=== PATIENT | female | born 1995 | race Caucasian/White ===

== ENCOUNTER 2018-02-04 18:48 | Emergency (ER) | payer OTHER, SELFPAY ==
[2018-02-04] MEDS ORDERED: TETANUS & DIPHTHERIA TOX,ADULT 0.5 ML VIAL ONE (19:29)
--- NOTE | 2018-02-04 19:54 | EDPHYS ---
Physician Documentation [facility] Name: Cassidy France Age: 22 yrs Sex: Female : 1995 Arrival Date: 02/04/2018 Time: 18:51 Bed 27 Private MD: ED Physician Clay Alva HPI: 02/04 19:35 This 22 yrs old Female presents to ER via EMS with complaints of pain. jr8 19:35 The patient or guardian complains of pain. left shoulder. Context: The problem was jr8 sustained at a gym. Onset: The symptoms/episode began/occurred acutely, yesterday. Modifying factors: the symptoms are alleviated by nothing. The symptoms are aggravated by movement. Associated signs and symptoms: The patient has no apparent associated signs or symptoms. Severity of symptoms: At their worst the symptoms were mild, in the emergency department the symptoms are unchanged. The patient has not experienced similar symptoms in the past. The patient has not recently seen a physician. Patient stated that he had been doing rehab on right shoulder. Was lifting weights and felt pain in left shoulder. Stated that later that night felt a popping noise. Since then has been hurting . Historical: - Allergies: 19:08 Tylenol; kr2 - Home Meds: 19:08 None [Active]; kr2 - PMHx: 19:08 Kidney stones; kidney swelling; kidney infections; kr2 - PSHx: 19:08 renal stents; D \T\ C; kr2 - Immunization history:: Adult Immunizations unknown. - Social history:: Smoking status: Patient uses tobacco products, smokes two packs cigarettes per day. ROS: 19:35 Eyes: Negative for injury, pain, redness, and discharge, ENT: Negative for injury, jr8 pain, and discharge, Neck: Negative for injury, pain, and swelling, Cardiovascular: Negative for chest pain, palpitations, and edema, Respiratory: Negative for shortness of breath, cough, wheezing, and pleuritic chest pain, Abdomen/GI: Negative for abdominal pain, nausea, vomiting, diarrhea, and constipation, Back: Negative for injury and pain, Skin: Negative for injury, rash, and discoloration, Neuro: Negative for headache, weakness, numbness, tingling, and seizure. 19:35 MS/extremity: Positive for pain, tenderness, of the left shoulder. Exam: 19:35 Cardiovascular: Regular rate and rhythm with a normal S1 and S2. No gallops, murmurs, jr8 or rubs. Normal PMI, no JVD. No pulse deficits. Respiratory: Lungs have equal breath sounds bilaterally, clear to auscultation and percussion. No rales, rhonchi or wheezes noted. No increased work of breathing, no retractions or nasal flaring. Abdomen/GI: Soft, non-tender, with normal bowel sounds. No distension or tympany. No guarding or rebound. No evidence of tenderness throughout. Back: No spinal tenderness. No costovertebral tenderness. Full range of motion. Skin: Warm, dry with normal turgor. Normal color with no rashes, no lesions, and no evidence of cellulitis. Neuro: Awake and alert, GCS 15, oriented to person, place, time, and situation. Cranial nerves II-XII grossly intact. Motor strength 5/5 in all extremities. Sensory grossly intact. Cerebellar exam normal. Normal gait. 19:35 Musculoskeletal/extremity: Extremities: grossly normal except: noted in the left shoulder: pain, tenderness, ROM: intact in all extremities, Circulation is intact in all extremities. Sensation intact. Vital Signs: 19:05 BP 117 / 95; Pulse 82; Resp 15; Temp 98.9(O); Pulse Ox 100% on R/A; Weight 58.97 kg; kr2 Height 5 ft. 2 in. (157.48 cm); Pain 6/10; 19:05 Body Mass Index 23.78 (58.97 kg, 157.48 cm) kr2 MDM: 18:52 Patient medically screened. jr8 02/05 00:46 Data reviewed: vital signs, nurses notes. ED course: Patient left ED after being seen. jr8 Unknown why patient left . 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 Exp: bs1 03/27/2020. Lot #: [id number]. } Route: IM; Site: right deltoid; 19:55 Follow up: Response: No adverse reaction bs1 Disposition: 21:10 Co-signature as Attending Physician, Clay Alva MD. rn Disposition: 02/05/18 00:48 Patient left the facility after being seen by provider. - Patient left due to (see nurse's notes). Signatures: Dispatcher [employer] Clay Barr MD MD rn Alfonso Gr PA PA jr8 Laney Dobson RN RN kr2 Anika Joseph RN RN bs1
--- NOTE | 2018-02-04 19:54 | ER ---
Nurse's Notes [facility] Name: Cassidy France Age: 22 yrs Sex: Female : 1995 Arrival Date: 02/04/2018 Time: 18:51 Bed 27 Private MD: Diagnosis: Presentation: 02/04 18:56 Presenting complaint: EMS states: they were called to residence for complaints of knee kr2 injury. She has been crying and won't really talk to us about what happened. All she will tell us is that she cut her knee on a nail somehow. She was home alone when we got there. Transition of care: patient was not received from another setting of care. Onset of symptoms was February 04, 2018. Care prior to arrival: Injury cleansed. Injury dressed. 18:56 Method Of Arrival: EMS: [facility] kr2 18:56 Acuity: DERICK 3 kr2 Triage Assessment: 19:01 General: Appears in no apparent distress. comfortable, well groomed, well developed, kr2 well nourished, Behavior is cooperative, crying. Pain: Complains of pain in medial aspect of left knee Pain does not radiate. Pain currently is 6 out of 10 on a pain scale. at worst was 8 out of 10 on a pain scale. Quality of pain is described as tender, throbbing, Pain began 1 hour ago. Is continuous, Alleviated by rest, Aggravated by repositioning, weight bearing. EENT: Nares are clear bilaterally Oral mucosa is moist. Neuro: Level of Consciousness is awake, alert, obeys commands, Oriented to person, place, time, situation, Appropriate for age. Cardiovascular: Capillary refill < 3 seconds in bilateral fingers Patient's skin is warm and dry. Respiratory: Airway is patent Respiratory effort is even, unlabored, Respiratory pattern is regular, symmetrical. GI: Abdomen is flat, non-distended. : No signs and/or symptoms were reported regarding the genitourinary system. Denies burning with urination. Derm: Skin is intact, is healthy with good turgor, Skin is pink, warm \\T\\ dry. Musculoskeletal: Circulation, motion, and sensation intact. Range of motion: intact in left knee. Injury Description: Laceration sustained to medial aspect of left knee is clean, 0.5 to 2.5 cm long, was sustained 1-2 hours ago. a small amount of bleeding noted at this time. A dressing was applied. Historical: - Allergies: 19:08 Tylenol; kr2 - Home Meds: 19:08 None [Active]; kr2 - PMHx: 19:08 Kidney stones; kidney swelling; kidney infections; kr2 - PSHx: 19:08 renal stents; D \\T\\ C; kr2 - Immunization history:: Adult Immunizations unknown. - Social history:: Smoking status: Patient uses tobacco products, smokes two packs cigarettes per day. Screenin:00 Abuse screen: Denies threats or abuse. Denies injuries from another. Nutritional kr2 screening: No deficits noted. Tuberculosis screening: No symptoms or risk factors identified. Fall Risk None identified. Assessment: 19:20 General: Appears in no apparent distress. Behavior is cooperative. Pain: Complains of bs1 pain in left knee and medial aspect of left knee Pain does not radiate. Pain currently is 3 out of 10 on a pain scale. Neuro: Level of Consciousness is awake, alert, obeys commands, Oriented to person, place, time, situation, Appropriate for age Opticianry Teacher are equal bilaterally Moves all extremities. Cardiovascular: Denies chest pain, nausea, palpitations, shortness of breath, Heart tones S1 S2 present Capillary refill < 3 seconds Patient's skin is warm and dry. Respiratory: Airway is patent Trachea midline Respiratory effort is even, unlabored, Respiratory pattern is regular, symmetrical, Breath sounds are clear bilaterally. GI: Abdomen is round Bowel sounds present X 4 quads. : No deficits noted. No signs and/or symptoms were reported regarding the genitourinary system. EENT: No deficits noted. No signs and/or symptoms were reported regarding the EENT system. Derm: Wound noted left knee and medial aspect of left knee 1cm laceration to left leg/knee. Musculoskeletal: No deficits noted. No signs and/or symptoms reported regarding the musculoskeletal system. 19:45 Reassessment: Patient left AMA, walked out of room. Nurse assumed patient was going to bs1 the restroom, then realized patient was heading for the door. Asked patient if she had an IV in and where she was going. Patient states in an angry tone "No, I am going home.". Vital Signs: 19:05 BP 117 / 95; Pulse 82; Resp 15; Temp 98.9(O); Pulse Ox 100% on R/A; Weight 58.97 kg; kr2 Height 5 ft. 2 in. (157.48 cm); Pain 6/10; 19:05 Body Mass Index 23.78 (58.97 kg, 157.48 cm) kr2 ED Course: 18:51 Patient arrived in ED. bd 18:52 Alfonso Gr PA is PHCP. jr8 18:52 Clay Alva MD is Attending Physician. jr8 18:55 Laney Dobson, RN is Primary Nurse. kr2 19:00 Triage completed. kr2 19:06 Arm band placed on. kr2 19:08 Patient has correct armband on for positive identification. Bed in low position. Call kr2 light in reach. Side rails up X 1. Pulse ox on. NIBP on. Door closed. Warm blanket given. Head of bed elevated. 19:14 Report received from JULITA Davison. bs1 19:26 X-ray completed. Portable x-ray completed in exam room. Patient tolerated procedure kc2 well. 19:48 No provider procedures requiring assistance completed. Patient did not have IV access bs1 during this emergency room visit. 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 Exp: bs1 03/27/2020. Lot #: [id number]. } Route: IM; Site: right deltoid; 19:55 Follow up: Response: No adverse reaction bs1 Outcome: 19:48 AMA Left before signing form. bs1 19:48 Condition: stable 19:54 Patient left the ED. bs1 02/05 00:48 Patient left the ED. jr8 Signatures: Mayela Rudd bd Alfonso Gr PA PA jr8 Salina Clark kc2 Laney Dobson RN RN kr2 Anika Joseph RN RN bs1 Corrections: (The following items were deleted from the chart) 02/04 19:52 19:46 General: Appears in no apparent distress. Behavior is cooperative, bs1 bs1 19:52 19:46 Pain: Complains of pain in left knee and medial aspect of left knee Pain does not bs1 radiate. Pain currently is 3 out of 10 on a pain scale. bs1 19:52 19:46 Neuro: Level of Consciousness is awake, alert, obeys commands, Oriented to bs1 person, place, time, situation, Appropriate for age Opticianry Teacher are equal bilaterally Moves all extremities. bs1 19:52 19:46 Cardiovascular: Denies chest pain, nausea, palpitations, shortness of breath, bs1 Heart tones S1 S2 present Capillary refill < 3 seconds Patient's skin is warm and dry. bs1 19:52 19:46 Respiratory: Airway is patent Trachea midline Respiratory effort is even, bs1 unlabored, Respiratory pattern is regular, symmetrical, Breath sounds are clear bilaterally. bs1 19:52 19:46 GI: Abdomen is round Bowel sounds present X 4 quads. bs1 bs1 : 19:46 : No deficits noted. No signs and/or symptoms were reported regarding the bs1 genitourinary system. bs1 : 19:46 EENT: No deficits noted. No signs and/or symptoms were reported regarding the bs1 EENT system. bs1 : 19:46 Derm: Wound noted left knee and medial aspect of left knee 1cm laceration to left bs1 leg/knee bs1 : 19:46 Musculoskeletal: No deficits noted. No signs and/or symptoms reported regarding bs1 the musculoskeletal system. bs1
--- NOTE | 2018-02-04 20:11 | RAD REPORT ---
EXAM DESCRIPTION: RAD - Knee Left 3 View - 02/04/2018 7:29 pm CLINICAL HISTORY: Left knee pain status post injury FINDINGS: No fracture or dislocation is seen. A radiopaque foreign body is not seen
== END 2018-02-05 00:48 | disposition left against medical advice (07) ==
LOC: ER 18:48
DX: M25.512 Pain in left shoulder (principal); Z23 Encounter for immunization; X50.0XXA Overexertion from strenuous movement or load, initial encounter; Y93.B9 Activity, other involving muscle strengthening exercises; Y92.39 Other specified sports and athletic area as the place of occurrence of the external cause; Z88.6 Allergy status to analgesic agent; F17.210 Nicotine dependence, cigarettes, uncomplicated
CPT/HCPCS: 90714; 99284

== ENCOUNTER 2018-08-25 05:52 | Emergency (ER) | payer SELFPAY ==
--- OUTSIDE RECORDS SUMMARY | 2018-08-25 06:29 | XMS REPORT | Continuity of Care Document ---
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 Weight 71.364, kg, Priority: STAT, Start date: 04/21/17 1:12:00 CDT, Stop date: 04/21/17 1:12:00 CDTNotes: (Same as: Demerol) "Use Precaution in Elderly, Seizure disorders, and Renal impairment" Morphine 2 mg, 1 mL, Inactive The Route: IVP, 2016 [place] Drug form: INJ, ONCE, Dosing Weight 71.364, kg, Priority: STAT, Start date: 04/21/17 1:12:00 CDT, Stop date: 04/21/17 1:12:00 CDTNotes: (Same as:MORPhine Sulfate) Calcium Chloride 1,000 mL, Rate: Inactive The 0.0014 MEQ/ML / 125 ml/hr, 2016 [place] Potassium Infuse over: 8 Chloride 0.004 hr, Route: IV, MEQ/ML / Sodium Dosing Weight Chloride 0.103 71.364 kg, MEQ/ML / Sodium Total Volume: Lactate 0.028 1,000, Start MEQ/ML Injectable date: 04/21/17 Solution 1:12:00 CDT, Duration: 30 day, Stop date: 05/21/17 1:11:00 CDT Zofran 0 Refill(s) Active The 2016 [place] Tramadol PO, 0 Refill(s) Active The 2016 [place] Calcium Chloride 500 mL, 500 Inactive The 0.0014 MEQ/ML / ml/hr, Infuse 2016 [place] Potassium Over: 1 hr, Chloride 0.004 Route: IV, 500, MEQ/ML / Sodium Drug form: INJ, Chloride 0.103 ONCE, Dosing MEQ/ML / Sodium Weight 70.455 Lactate 0.028 kg, Start date: MEQ/ML Injectable 04/19/17 Solution 12:23:00 CDT, Stop date: 04/19/17 12:23:00 CDT tramadol 1 - 2 tabs, PO, Active The hydrochloride 50 Q6H, PRN Pain 2016 [place] MG Oral Tablet Score 6-10, X 4 [Ultram] day, # 40 tab, 0 Refill(s) Nitrofurantoin 100 mg=1 cap, Active The 100 MG Oral PO, Daily, X 30 2016 [place] Capsule day, # 30 cap, [Macrobid] 0 Refill(s) K-Dur 20 40 mEq, 2 tab, Inactive The Route: PO, Drug 2016 [place] form: ERTAB, ONCE, Dosing Weight 70.909, kg, Start date: 04/07/17 5:46:00 CDT, Stop date: 04/07/17 5:46:00 CDTNotes: (Same as: K-Dur 20) "Do Not Crush" With food and full glass of water tramadol 100 mg, 2 tab, No Longer The hydrochloride 50 Route: PO, Drug Active 2016 [facility] Oral Tablet form: TAB, Q6H, [Ultram] Dosing Weight 70.909, kg, PRN Pain Score 4-6, Start date: 04/06/17 8:33:00 CDT, Duration: 30 day, Stop date: 05/06/17 8:32:00 CDTNotes: Not to exceed 400mg/day. (Same As: Ultram) tramadol 50 mg, 1 tab, No Longer The hydrochloride 50 Route: PO, Drug Active [facility] MG Oral Tablet form: TAB, Q4H, [Ultram] Dosing Weight 70.909, kg, PRN Pain Score 1-3, Start date: 04/06/17 8:32:00 CDT, Duration: 30 day, Stop date: 05/06/17 8:31:00 CDTNotes: Not to exceed 400mg/day. (Same As: Ultram) multivitamin, 1 tab, Route: No Longer The PO, Drug Form: Active 2016 [place] TAB, Dosing Weight 68.636, kg, Daily, Start date: 04/05/17 9:00:00 CDT, Duration: 30 day, Stop date: 05/04/17 9:00:00 CDT Morphine 2 mg, 1 mL, No Longer The Route: IVP, Active 2016 [place] Drug form: INJ, Q4H, Dosing Weight 68.636, kg, PRN Pain Score 1-5, Start date: 04/05/17 7:14:00 CDT, Duration: 30 day, Stop date: 05/05/17 7:13:00 CDTNotes: (Same as:MORPhine Sulfate) Morphine 2 mg, 1 mL, No Longer The Route: IVP, Active 2016 [place] Drug form: INJ, Q4Hnow, Dosing Weight 68.636, kg, Start date: 04/04/17 22:00:00 CDT, Duration: 30 day, Stop date: 05/04/17 18:00:00 CDTNotes: (Same as:MORPhine Sulfate) Promethazine 12.5 mg, 50 mL, No Longer The Route: IVPB, Active 2016 [place] Drug form: SOLN, Q4H, Dosing Weight 68.636, kg, PRN Nausea & Vomiting, Start date: 04/04/17 21:54:00 CDT, Duration: 30 day, Stop date: 05/04/17 21:53:00 CDT Ancef 2 gm, 100 mL, No Longer The Route: IVPB, Active 2016 [place] Drug form: INJ, ABXQ8H, Dosing Weight 68.636, kg, Start date: 04/04/17 21:00:00 CDT, Duration: 5 day, Stop date: 04/09/17 13:00:00 CDT, ABX Indication: Urinary Tract InfectionNotes: Same as: Ancef Saline Flush 0.9% 10 ml, Route: No Longer The IVP, Drug Form: Active 2016 [place] INJ, Dosing Weight 68.636, kg, PRN, PRN Line Flush, Start date: 04/04/17 20:47:00 CDT, Duration: 30 day, Stop date: 05/04/17 20:46:00 CDTNotes: Same as: BD Posiflush Sterile NS + KCL 20mEq/L 1,000 mL, Rate: No Longer The 1000ml (Premix) 125 ml/hr, Active 2016 [place] 1,000 mL Infuse over: 8 hr, Route: IV, Dosing Weight 68.636 kg, Total Volume: 1,000, Start date: 04/04/17 20:47:00 CDT, Duration: 30 day, Stop date: 05/04/17 20:46:00 CDTNotes: PREMIX IV - Do Not Alter WASTE: F/P - Sink; E - Municipal Trash Bin Morphine 2 mg, 1 mL, Inactive The Route: IVP, 2016 [place] Drug form: INJ, ONCE, Dosing Weight 68.636, kg, Priority: STAT, Start date: 04/04/17 17:05:00 CDT, Stop date: 04/04/17 17:05:00 CDTNotes: (Same as:MORPhine Sulfate) Ceftriaxone 1 gm, Route: Inactive The IVPB, ONCE, 2016 [place] Dosing Weight 68.636, kg, Priority: STAT, Start date: 04/04/17 17:04:00 CDT, Duration: 1 doses or times, Stop date: 04/04/17 17:04:00 CDT, ABX Indication: Urinary Tract InfectionNotes: (Same As: Rocephin). Use with 100 mL NS and infuse over 30 min MEDICATION WASTE Product Size: 1000 mg Product Wasted: ___ mg Zofran ODT 8 mg, 2 tab, Inactive The Route: PO, Drug 2016 [place] form: TABDIS, ONCE, Dosing Weight 68.636, kg, Priority: STAT, Start date: 04/04/17 15:54:00 CDT, Stop date: 04/04/17 15:54:00 CDTNotes: (Same as: Zofran ODT) Saline Flush 0.9% 10 mL, Route: No Longer The IVP, Drug Form: Active 2016 [place] INJ, Dosing Weight 68.636, kg, PRN, PRN Line Flush, Start date: 04/04/17 14:08:00 CDT, Duration: 30 day, Stop date: 05/04/17 14:07:00 CDTNotes: Same as: BD Posiflush Sterile 1 tab, Route: Inactive The Multivitamins PO, Drug Form: 2016 [place] with Folic Acid 1 TAB, Dosing mg oral tablet Weight 72.4, kg, Daily, Start date: 04/01/17 16:23:00 CDT, Duration: 30 day, Stop date: 05/01/17 9:00:00 CDT Nitrofurantoin 100 mg=1 cap, Active The 100 MG Oral PO, BID, # 10 2016 [place] Capsule cap, 0 [Macrobid] Refill(s) Ceftriaxone 1 gm, Route: Inactive The IVPB, [id number], 2016 [place] Dosing Weight 72.4, kg, Start date: 04/01/17 2:00:00 CDT, Duration: 30 day, Stop date: 04/30/17 2:00:00 CDTNotes: (Same As: Rocephin). Use with 100 mL NS and infuse over 30 min MEDICATION WASTE Product Size: 1000 mg Product Wasted: ___ mg potassium 40 mEq, 2 tab, No Longer The chloride Route: PO, Drug Active 2016 [place] form: ERTAB, BID, Dosing Weight 72.4, kg, Start date: 03/31/17 21:00:00 CDT, Stop date: 04/01/17 12:00:00 CDTNotes: (Same as: K-Dur 20) "Do Not Crush" With food and full glass of water Docusate 100 mg, 1 cap, No Longer The Route: PO, Drug Active 2016 [place] form: CAP, BID, Dosing Weight 72.4, kg, Start date: 03/31/17 9:00:00 CDT, Duration: 30 day, Stop date: 04/29/17 17:00:00 CDTNotes: (Same as: Colace) (Do Not Crush) Morphine 4 mg, 1 mL, No Longer The Route: IVP, Active 2016 [place] Drug form: INJ, Q4H, Dosing Weight 72.4, kg, PRN Pain Score 7-10, Start date: 03/31/17 3:26:00 CDT, Duration: 30 day, Stop date: 04/30/17 3:25:00 CDTNotes: (Same as:MORPhine Sulfate) Ondansetron 4 mg, 2 mL, No Longer The Route: IVP, Active 2016 [place] Drug form: INJ, Q8H, Dosing Weight 72.4, kg, PRN Nausea & Vomiting, Start date: 03/31/17 3:26:00 CDT, Duration: 30 day, Stop date: 04/30/17 3:25:00 CDTNotes: (Same as: Zofran) MEDICATION WASTE Product Size: 4 mg Product Wasted: ___ mg Diphenhydramine 12.5 mg, 5 mL, No Longer The Route: PO, Drug Active 2016 [place] form: LIQ, Q6H, Dosing Weight 72.4, kg, PRN Itching, Start date: 03/31/17 3:26:00 CDT, Duration: 30 day, Stop date: 04/30/17 3:25:00 CDTNotes: (Same as: Benadryl) Promethazine 12.5 mg, 0.5 No Longer The tab, Route: PO, Active 2016 [place] Drug form: TAB, Q4H, Dosing Weight 72.4, kg, PRN Nausea & Vomiting, Start date: 03/31/17 3:26:00 CDT, Duration: 30 day, Stop date: 04/30/17 3:25:00 CDTNotes: (Same as: Phenergan) Simethicone 160 mg, 2 tab, No Longer The Route: PO, Drug Active 2016 [place] form: CHEWTAB, Q8H, Dosing Weight 72.4, kg, PRN Gas, Start date: 03/31/17 3:26:00 CDT, Duration: 30 day, Stop date: 04/30/17 3:25:00 CDTNotes: (Same as: Mylicon) Tramadol 50 mg, 1 tab, No Longer The Route: PO, Drug Active 2016 [place] form: TAB, Q4H, Dosing Weight 72.4, kg, PRN Pain Score 4-6, Start date: 03/31/17 3:26:00 CDT, Duration: 30 day, Stop date: 04/30/17 3:25:00 CDTNotes: Not to exceed 400mg/day. (Same As: Ultram) zolpidem 5 mg, 1 tab, No Longer The Route: PO, Drug Active 2016 [place] form: TAB, Bedtime, Dosing Weight 72.4, kg, PRN Insomnia, Start date: 03/31/17 3:26:00 CDT, Duration: 30 day, Stop date: 04/30/17 3:25:00 CDTNotes: (Same As: Ambien) Bisacodyl 10 mg, 1 supp, No Longer The Route: OR, Drug Active 2016 [place] form: SUPP, PRN, Dosing Weight 72.4, kg, PRN Gas, Start date: 03/31/17 3:26:00 CDT, Duration: 30 day, Stop date: 04/30/17 3:25:00 CDTNotes: (Same As: Dulcolax, Bisco-Lax) Rocephin 1 gm, Route: Inactive The IVPB, ONCE, 2016 [place] Dosing Weight 70.9, kg, Priority: STAT, Start date: 03/31/17 0:36:00 CDT, Stop date: 03/31/17 0:36:00 CDTNotes: (Same As: Rocephin). Use with 100 mL NS and infuse over 30 min MEDICATION WASTE Product Size: 1000 mg Product Wasted: ___ mg Sodium Chloride 1,000 mL, 1000 No Longer The 0.154 MEQ/ML ml/hr, Infuse Active 2016 [place] Injectable Over: 1 hr, Solution Route: IV, 1,000, Drug form: INJ, ONCE, Priority: STAT, Dosing Weight 70.9 kg, Start date: 03/30/17 23:01:00 CDT, Duration: 1 doses or times, Stop date: 03/30/17 23:01:00 CDT Zofran 4 mg, 2 mL, No Longer The Route: IVP, [facility] 2016 [place] Drug form: INJ, ONCE, Dosing Weight 70.9, kg, Priority: STAT, Start date: 03/30/17 23:01:00 CDT, Stop date: 03/30/17 23:01:00 CDTNotes: (Same as: Zofran) MEDICATION WASTE Product Size: 4 mg Product Wasted: ___ mg Morphine 4 mg, 1 mL, No Longer The Route: IVP, [facility] 2016 [place] Drug form: INJ, ONCE, Dosing Weight 70.9, kg, Priority: STAT, Start date: 03/30/17 23:00:00 CDT, Stop date: 03/30/17 23:00:00 CDTNotes: (Same as:MORPhine Sulfate) tramadol 50 mg 50 mg, 1 tab, Inactive [place] oral tablet Route: PO, Drug 2016 [facility] form: TAB, Center ONCE, Dosing Weight 70.909, kg, Priority: STAT, Start date: 03/28/17 22:14:00 CDT, Stop date: 03/28/17 22:14:00 CDTNotes: Not to exceed 400mg/day. (Same As: Ultram) Flexeril 10 mg, 1 tab, Inactive [place] Route: PO, Drug 2016 [facility] form: TAB, Center ONCE, Dosing Weight 70.909, kg, Priority: STAT, Start date: 03/28/17 22:14:00 CDT, Stop date: 03/28/17 22:14:00 CDTNotes: (Same As: Flexeril) tramadol 50 mg, 1 tab, Inactive [place] hydrochloride 50 Route: PO, Drug 2017 [facility] Oral Tablet form: TAB, Center ONCE, Dosing Weight 70.909, kg, Priority: STAT, Start date: 03/28/17 21:55:00 CDT, Stop date: 03/28/17 21:55:00 CDTNotes: Not to exceed 400mg/day. (Same As: Ultram) Flexeril 10 mg, 1 tab, Inactive [place] Route: PO, Drug 2016 [facility] form: TAB, Center ONCE, Dosing Weight 70.909, kg, Priority: STAT, Start date: 03/28/17 21:20:00 CDT, Stop date: 03/28/17 21:20:00 CDTNotes: (Same As: Flexeril) Ondansetron 4 mg, 2 mL, Inactive The Route: IVP, 2016 [place] Drug form: INJ, ONCE, Dosing Weight 71.591, kg, Priority: STAT, Start date: 02/23/17 1:34:00 CDT, Stop date: 02/23/17 1:34:00 CDTNotes: (Same as: Zofran) MEDICATION WASTE Product Size: 4 mg Product Wasted: ___ mg Calcium Chloride 1,000 mL, Rate: Inactive The 0.0014 MEQ/ML / 125 ml/hr, 2016 [place] Potassium Infuse over: 8 Chloride 0.004 hr, Route: IV, MEQ/ML / Sodium Dosing Weight Chloride 0.103 71.591 kg, MEQ/ML / Sodium Total Volume: Lactate 0.028 1,000, Start MEQ/ML Injectable date: 02/23/17 Solution 1:34:00 CDT, Duration: 30 day, Stop date: 03/25/17 1:33:00 CDT Morphine 2 mg, 1 mL, Inactive The Route: IVP, 2016 [place] Drug form: INJ, ONCE, Dosing Weight 71.591, kg, Priority: STAT, Start date: 02/23/17 1:34:00 CDT, Stop date: 02/23/17 1:34:00 CDTNotes: (Same as:MORPhine Sulfate) Phenergan 25 mg, 1 mL, Inactive The Route: IM, Drug 2016 [place] form: INJ, ONCE, Dosing Weight 65.909, kg, Priority: STAT, Start date: 02/19/17 1:15:00 CDT, Stop date: 02/19/17 1:15:00 CDTNotes: Do not give IV push. (Same as: Phenergan) Demerol HCl 50 mg, 1 mL, Inactive The Route: IM, Drug 2016 [place] form: INJ, ONCE, Dosing Weight 65.909, kg, Priority: STAT, Start date: 02/19/17 1:14:00 CDT, Stop date: 02/19/17 1:14:00 CDTNotes: (Same as: Demerol) "Use Precaution in Elderly, Seizure disorders, and Renal impairment" Promethazine 12.5 mg, 0.5 Inactive The mL, Route: 2016 [place] IVPB, ONCE, Dosing Weight 65.909, kg, Priority: STAT, Start date: 02/03/17 0:48:00 CDT, Stop date: 02/03/17 0:48:00 CDTNotes: Do not give IV push. (Same as: Phenergan) Meperidine 12.5 mg, 0.25 Inactive The mL, Route: IVP, 2016 [place] Drug form: INJ, ONCE, Dosing Weight 65.909, kg, Priority: STAT, Start date: 02/03/17 0:12:00 CDT, Stop date: 02/03/17 0:12:00 CDTNotes: (Same as: Demerol) "Use Precaution in Elderly, Seizure disorders, and Renal impairment" Ondansetron 4 mg, 2 mL, Inactive The Route: IVP, 2016 [place] Drug form: INJ, ONCE, Dosing Weight 65.909, kg, Priority: STAT, Start date: 02/02/17 22:48:00 CDT, Stop date: 02/02/17 22:48:00 CDTNotes: (Same as: Zofran) MEDICATION WASTE Product Size: 4 mg Product Wasted: ___ mg D5W in Lactated 1,000 mL, Rate: No Longer The [place] 1,000 mL 125 ml/hr, Active 2016 [place] Infuse over: 8 hr, Route: IV, Dosing Weight 65.909 kg, Total Volume: 1,000, Start date: 02/02/17 22:48:00 CDT, Duration: 30 day, Stop date: 03/04/17 22:47:00 CDT Metoclopramide 10 10 mg=1 tab, Active The MG Oral Tablet PO, QID-Before 2016 [place] [Reglan] Meals, PRN nausea and vomiting, X 10 day, # 40 tab, 0 Refill(s) Nitrofurantoin 100 mg=1 cap, Active The 100 MG Oral PO, BID, X 10 2016 [place] Capsule day, # 20 cap, [Macrobid] 0 Refill(s) Morphine 2 mg, 1 mL, Inactive The Route: IVP, 2016 [place] Drug form: INJ, ONCE, Dosing Weight 64.545, kg, Priority: STAT, Start date: 01/13/17 5:21:00 [employer]ATION [place], Stop date: 01/13/17 5:21:00 CSTNotes: (Same as:MORPhine Sulfate) Ondansetron 4 mg, 2 mL, Inactive The Route: IVP, 2016 [place] Drug form: INJ, ONCE, Dosing Weight 64.545, kg, Priority: STAT, Start date: 01/13/17 5:21:00 [employer]ATION [employer], Stop date: 01/13/17 5:21:00 CSTNotes: (Same as: Zofran) MEDICATION WASTE Product Size: 4 mg Product Wasted: ___ mg Saline Flush 0.9% 10 mL, Route: Inactive The IVP, Drug Form: 2016 [place] INJ, Dosing Weight 64.545, kg, PRN, PRN Line Flush, Start date: 01/13/17 5:21:00 [employer]ATION [employer], Duration: 30 day, Stop date: 02/12/17 6:20:00 CDTNotes: Same as: BD Posiflush Sterile Sodium Chloride 1,000 mL, 2,000 Inactive The 0.154 MEQ/ML ml/hr, Infuse 2016 [place] Injectable Over: 30 Solution minutes, Route: IV, 1,000, Drug form: INJ, ONCE, Priority: STAT, Dosing Weight 64.545 kg, Start date: 01/13/17 5:21:00 [employer], Duration: 1 doses or times, Stop date: 01/13/17 5:21:00 [employer] Sodium Chloride 1,000 mL, 1,000 Inactive The 0.154 MEQ/ML ml/hr, Infuse 2016 [place] Injectable Over: 1 hr, Solution Route: IV, 1,000, Drug form: INJ, ONCE, Priority: STAT, Dosing Weight 66.364 kg, Start date: 01/01/17 16:19:00 [employer]ATION [place], Duration: 1 doses or times, Stop date: 01/01/17 16:19:00 [employer] Cephalexin 500 MG 500 mg=1 cap, Active The Oral Capsule PO, TID, X 5 2016 [place] [Keflex] day, # 15 cap, 0 Refill(s) Ceftriaxone 1 gm, Route: No Longer The IVPB, [id number], Active 2016 [place] Dosing Weight 63.636, kg, Start date: 12/03/16 12:00:00 [employer]ATION [place], Duration: 30 day, Stop date: 01/01/17 12:00:00 CSTNotes: (Same As: Rocephin). Use with 100 mL NS and infuse over 30 min MEDICATION WASTE Product Size: 1000 mg Product Wasted: ___ mg magnesium sulfate 2 gm, 50 mL, Inactive The Route: IVPB, 2016 [place] Drug form: INJ, ONCE, Start date: 12/03/16 9:30:00 [employer]ATION [place], Stop date: 12/03/16 9:30:00 CSTNotes: WASTE: F/P - Sink; E - Municipal Trash Bin potassium 10 mEq, 100 mL, Inactive The chloride Route: IVPB[facility] Drug form: INJ, Q1H, Start date: 12/03/16 9:00:00 [employer]ATION [place], Duration: 4 doses or times, Stop date: 12/03/16 12:00:00 CSTNotes: Infuse at a rate of 10 mEq/hr. (Same as: KCL) 1 tab, Route: No Longer The Multivitamins PO, Drug Form: Active 2016 [place] with Folic Acid TAB, Dosing 0.8 mg oral Weight 63.636, tablet kg, Daily, Start date: 12/03/16 9:00:00 [employer]ATION [place], Duration: 30 day, Stop date: 01/01/17 9:00:00 [employer] [place] potassium 40 mEq, Route: Inactive The chloride PO, Drug form: 2016 [place] ERTAB, ONCE, Dosing Weight 63.636, kg, Start date: 12/03/16 7:47:00 [employer]PLE[employer] L[employer]IGATION [place], Stop date: 12/03/16 7:47:00 [employer] [place] Magnesium Sulfate 2 gm, 4 mL, Inactive The Route: IVPB, 2016 [place] ONCE, Dosing Weight 63.636, kg, Start date: 12/03/16 7:47:00 [employer] L[employer]ATION [employer], Stop date: 12/03/16 7:47:00 CSTNotes: (Same as: MgSO4) WASTE: F/P - Sink; E - Municipal Trash Bin MEDICATION WASTE Product Size: 1000 mg Product Wasted: ___ mg sodium chloride 1,000 mL, Rate: Inactive The 0.9% 1000 ml INJ 100 ml/hr, [address] [place] [address] 1,000 mL Infuse over: 10 hr, Route: IV, Dosing Weight 63.636 kg, Total Volume: 1,000, Start date: 12/03/16 0:31:00 [employer]PLEX [employer] L[employer]IGATION [employer], Duration: 30 day, Stop date: 01/02/17 0:30:00 [employer] Sodium Chloride 1,000 mL, 1,000 Inactive The 0.154 MEQ/ML ml/hr, Infuse 2016 [place] Injectable Over: 1 hr, Solution Route: IV, 1,000, Drug form: INJ, ONCE, Priority: STAT, Dosing Weight 63.636 kg, Start date: 12/03/16 0:31:00 [employer] L[employer]ATION [place], Duration: 1 doses or times, Stop date: 12/03/16 0:31:00 [employer] [place] Promethazine 12.5 mg, 50 mL, No Longer The Route: IVPB, Active 2016 [place] Drug form: SOLN, Q4H, Dosing Weight 63.636, kg, PRN Nausea & Vomiting, Start date: 12/03/16 0:31:00 [employer] [place], Duration: 30 day, Stop date: 01/02/17 0:30:00 [employer] [place] Morphine 2 mg, 1 mL, No Longer The Route: IVP, Active 2016 [place] Drug form: INJ, Q4H, Dosing Weight 63.636, kg, PRN Pain Score 7-10, Start date: 12/03/16 0:30:00 [employer]PLE[employer] L[employer]ATION [employer], Duration: 30 day, Stop date: 01/02/17 0:29:00 CSTNotes: (Same as:MORPhine Sulfate) potassium 10 mEq, 100 mL, No Longer The chloride Route: IVPB, Active 2016 [place] Drug form: INJ, Q1H, Dosing Weight 63.835, kg, Total Dose=40 meq, Start date: 12/02/16 22:00:00 [employer]PLEX [employer] L[employer]ATION [place], Duration: 4 doses or times, Stop date: 12/03/16 1:00:00 [employer]PLE[employer]ATION [employer], Peripheral LineNotes: Infuse at a rate of 10 mEq/hr. (Same as: KCL) Sodium Chloride 1,000 mL, 1,000 Inactive The 0.154 MEQ/ML ml/hr, Infuse 2016 [place] Injectable Over: 1 hr, Solution Route: IV, 1,000, Drug form: INJ, ONCE, Priority: STAT, Dosing Weight 63.835 kg, Start date: 12/02/16 21:00:00 [employer] L[employer]ATION [employer], Duration: 1 doses or times, Stop date: 12/02/16 21:00:00 [employer] Rocephin 1 gm, Route: Inactive The IVPB, Drug 2016 [place] form: PDR/INJ, ONCE, Dosing Weight 63.835, kg, Priority: STAT, Start date: 12/02/16 21:00:00 [employer]ATION [employer], Stop date: 12/02/16 21:00:00 CSTNotes: (Same As: Rocephin). Use with 100 mL NS and infuse over 30 min MEDICATION WASTE Product Size: 1000 mg Product Wasted: ___ mg Zofran 4 mg, 2 mL, Inactive The Route: IVP, 2016 [place] Drug form: INJ, ONCE, Dosing Weight 63.835, kg, Priority: STAT, Start date: 12/02/16 20:59:00 [employer]X [employer]IT[employer]ATION [employer]ALEGAL, Stop date: 12/02/16 20:59:00 CSTNotes: (Same as: Zofran) MEDICATION WASTE Product Size: 4 mg Product Wasted: ___ mg Phenergan 12.5 mg, Route: Inactive The IVPB, ONCE, 2016 [place] Dosing Weight 63.835, kg, Priority: STAT, Start date: 12/02/16 20:40:00 [employer]ATION [employer], Stop date: 12/02/16 20:40:00 [employer] potassium 40 mEq, 2 tab, Inactive The chloride 20 mEq Route: PO, Drug 2016 [place] oral tablet, form: ERTAB, extended release ONCE, Dosing Weight 63.835, kg, Priority: STAT, Start date: 12/02/16 20:29:00 [employer]ATION [employer]GAL, Stop date: 12/02/16 20:29:00 CSTNotes: (Same as: K-Dur 20) "Do Not Crush" With food and full glass of water Zofran 4 mg, 2 mL, Inactive The Route: IVP, 2016 [place] Drug form: INJ, ONCE, Dosing Weight 63.835, kg, Priority: STAT, Start date: 12/02/16 19:28:00 [employer]ATION [employer], Stop date: 12/02/16 19:28:00 CSTNotes: (Same as: Zofran) MEDICATION WASTE Product Size: 4 mg Product Wasted: ___ mg Sodium Chloride 1,000 mL, 1,000 Inactive The 0.154 MEQ/ML ml/hr, Infuse 2016 [place] Injectable Over: 1 hr, Solution Route: IV, 1,000, Drug form: INJ, ONCE, Priority: STAT, Dosing Weight 63.835 kg, Start date: 12/02/16 19:28:00 [employer]ATION [employer], Duration: 1 doses or times, Stop date: 12/02/16 19:28:00 [employer] L[employer]ATION [employer]GAL 1 tab, PO, Active The Multivitamins Daily, Take 2016 [place] with Folic Acid 1 over the mg oral tablet counter, # 90 tab, 0 Refill(s), other tramadol See Active The hydrochloride 50 Instructions, 2016 [place] MG Oral Tablet PRN pain, 1 tab [Ultram] PO Q4-6H for 4 day, # 24 tab, 0 Refill(s) cefdinir 300 MG 300 mg=1 cap, Active The Oral Capsule PO, Q12H, X 10 [place] [Omnicef] day, # 20 cap, 0 Refill(s) cefTRIAXone + 1 gm, Route: No Longer The sodium chloride IVPB, Q24H, Active [place] 0.9% INJ 100 mL Start date: 11/27/16 21:00:00 [employer], Duration: 30 day, Stop date: 12/26/16 21:00:00 CSTNotes: (Same As: Rocephin). Use with 100 mL NS and infuse over 30 min MEDICATION WASTE Product Size: 1000 mg Product Wasted: ___ mg Magnesium Oxide 800 mg, 2 tab, Inactive The Route: PO, Drug [place] form: TAB, ONCE, Dosing Weight 61.818, kg, Start date: 11/27/16 9:58:00 [employer], Stop date: 11/27/16 9:58:00 CSTNotes: (Same as: Mag-Ox 400) Magnesium oxide [id number] elemental magnesium Dose=____mg magnesium oxide (___mg elemental magnesium) Zofran 4 mg, 2 mL, No Longer The Route: IV, Drug Active [place] form: INJ, Q4H, Dosing Weight 61.818, kg, PRN Nausea, Start date: 11/27/16 8:02:00 [employer], Duration: 30 day, Stop date: 12/27/16 8:01:00 CSTNotes: (Same as: Zofran) MEDICATION WASTE Product Size: 4 mg Product Wasted: ___ mg Morphine 2 mg, 1 mL, No Longer The Route: IVP, Active 2016 [place] Drug form: INJ, Q2H, Dosing Weight 61.818, kg, PRN Pain Score 7-10, Start date: 11/27/16 8:02:00 [employer], Duration: 30 day, Stop date: 12/27/16 8:01:00 CSTNotes: (Same as:MORPhine Sulfate) Morphine 1 mg, 0.5 mL, Inactive The Route: IVP, 2016 [place] Drug form: INJ, ONCE, Dosing Weight 61.818, kg, Start date: 11/27/16 1:15:00 [employer], Stop date: 11/27/16 1:15:00 CSTNotes: (Same as:MORPhine Sulfate) Acetaminophen 1,000 mg, 2 Inactive The tab, Route: PO, 2016 [place] Drug form: TAB, Q6H, Dosing Weight 61.818, kg, PRN Pain 4-6/Temp > 100.4 F, Start date: 11/27/16 0:56:00 [employer], Duration: 30 day, Stop date: 12/27/16 0:55:00 CSTNotes: Max acetaminophen 4000 mg/day (4 gm/day). (Same as: Tylenol Extra Strength) Acetaminophen 500 mg, Route: Inactive The PO, Q4H, Dosing 2016 [place] Weight 61.818, kg, PRN Pain 4-6/Temp > 100.4 F, Start date: 11/27/16 0:51:00 [employer], Duration: 30 day, Stop date: 12/27/16 0:50:00 [employer] Morphine 2 mg, 1 mL, Inactive The Route: IVP, 2016 [place] Drug form: INJ, Q4H, Dosing Weight 61.818, kg, PRN Pain Score 6-10, cation-breast feeding, Priority: STAT, Start date: 11/26/16 22:40:00 [employer], Duration: 30 day, Stop date: 12/26/16 22:39:00 CSTNotes: (Same as:MORPhine Sulfate) Ceftriaxone 1 gm, Route: Inactive The IVPB, Drug 2016 [place] form: PDR/INJ, Daily, Dosing Weight 61.818, kg, Priority: STAT, Start date: 11/26/16 22:37:00 [employer], Duration: 30 day, Stop date: 12/26/16 9:00:00 [employer] sodium chloride 1,000 mL, Rate: No Longer The 0.9% 1000 ml INJ 100 ml/hr, Active 2016 [place] 1,000 mL Infuse over: 10 hr, Route: IV, Dosing Weight 61.818 kg, Total Volume: 1,000, Start date: 11/26/16 22:37:00 [employer], Duration: 30 day, Stop date: 12/26/16 22:36:00 [employer] sodium chloride 1,000 mL, Rate: Inactive The 0.9% 1000 ml INJ 75 ml/hr, [address] [place] [address] 1,000 mL Infuse over: 13.3 hr, Route: IV, Dosing Weight 61.818 kg, Total Volume: 1,000, Start date: 11/26/16 22:16:00 [employer], Duration: 30 day, Stop date: 12/26/16 22:15:00 [employer] Sodium Chloride 1,000 mL, 1,000 Inactive The 0.154 MEQ/ML ml/hr, Infuse 2016 [place] Injectable Over: 1 hr, Solution Route: IV, 1,000, Drug form: INJ, ONCE, Priority: STAT, Dosing Weight 61.818 kg, Start date: 11/26/16 22:16:00 [employer], Duration: 1 doses or times, Stop date: 11/26/16 22:16:00 [employer] Rocephin 1 gm, Route: Inactive The IVPB, ONCE, 2016 [place] Dosing Weight 61.818, kg, Priority: STAT, Start date: 11/26/16 22:15:00 [employer], Stop date: 11/26/16 22:15:00 CSTNotes: (Same As: Rocephin). Use with 100 mL NS and infuse over 30 min MEDICATION WASTE Product Size: 1000 mg Product Wasted: ___ mg Acetaminophen 325 1 tab, Route: Inactive The MG / Hydrocodone PO, Drug Form: 2016 [place] Bitartrate 10 MG TAB, Dosing Oral Tablet Weight 61.818, [[place] 10/325] kg, ONCE, STAT, Start date: 11/26/16 21:06:00 [employer], Stop date: 11/26/16 21:06:00 CSTNotes: Do not exceed 4gm/day of acetaminophen. (Same as: [place] 325/10) Saline Flush 0.9% 10 mL, Route: No Longer The IVP, Drug Form: Active 2016 [place] INJ, Dosing Weight 65.909, kg, PRN, PRN Line Flush, Start date: 11/26/16 18:05:00 [employer], Duration: 30 day, Stop date: 12/26/16 18:04:00 CSTNotes: Same as: BD Posiflush Sterile Magnesium Oxide 800 mg, 2 tab, No Longer The Route: PO, Drug Active [place] form: TAB, Daily, Dosing Weight 64.682, kg, Priority: NOW, Start date: 08/22/16 11:37:00 CDT, Duration: 30 day, Stop date: 09/21/16 9:00:00 CDTNotes: (Same as: Mag-Ox 400) Magnesium oxide [id number] elemental magnesium Dose=____mg magnesium oxide (___mg elemental magnesium) sodium phosphate 30 mmol, 10 mL, No Longer The + sodium chloride Route: IVPB, [place] 0.9% INJ 250 mL PRN, Dosing Weight 64.682, kg, PRN Abnormal Lab Result, For NON-ICU Patients Only., Start date: 08/22/16 4:54:00 CDT, Duration: 30 day, Stop date: 09/21/16 4:53:00 CDT Magnesium Oxide 800 mg, 2 tab, No Longer The Route: PO, Drug Active 2015 form: TAB, PRN, Dosing Weight 64.682, kg, PRN Abnormal Lab Result, For NON-ICU Patients Only., Start date: 08/22/16 4:54:00 CDT, Duration: 30 day, Stop date: 09/21/16 4:53:00 CDTNotes: (Same as: Mag-Ox 400) Magnesium oxide [id number] elemental magnesium Dose=____mg magnesium oxide (___mg elemental magnesium) Calcium Gluconate 2 gm, 20 mL, No Longer The Route: IVPB, [place] PRN, Dosing Weight 64.682, kg, PRN Abnormal Lab Result, For NON-ICU Patients Only., Start date: 08/22/16 4:54:00 CDT, Duration: 30 day, Stop date: 09/21/16 4:53:00 CDTNotes: WASTE: F/P - Sink; E - Municipal Trash Bin Magnesium Sulfate 1 gm, 100 mL, No Longer The Route: IVPB, Active 2016 [place] Drug form: INJ, PRN, Dosing Weight 64.682, kg, PRN Abnormal Lab Result, For NON-ICU Patients Only., Start date: 08/22/16 4:54:00 CDT, Duration: 30 day, Stop date: 09/21/16 4:53:00 CDTNotes: WASTE: F/P - Sink; E - Municipal Trash Bin potassium 20 mEq, 1 tab, No Longer The chloride Route: PO, Drug Active 2015 [place] form: ERTAB, PRN, Dosing Weight 64.682, kg, PRN Abnormal Lab Result, For NON-ICU Patients Only, Start date: 08/22/16 4:54:00 CDT, Duration: 30 day, Stop date: 09/21/16 4:53:00 CDTNotes: (Same as: K-Dur 20) "Do Not Crush" With food and full glass of water potassium 2 pkt, Route: No Longer The phosphate-sodium PO, Drug Form: Active 2015 [place] phosphate 250 PDR/REC, Dosing mg-278 mg-164 mg Weight 64.682, oral powder kg, PRN, PRN Abnormal Lab Result, For NON-ICU Patients Only, Start date: 08/22/16 4:54:00 CDT, Duration: 30 day, Stop date: 09/21/16 4:53:00 CDTNotes: Same as: Phos-Nak Mix 1 packet with 75 mL water or juice. Each packet has 160mg of sodium, 280mg of potassium, and 250mg of phosphorus Non-Formulary Item potassium 30 mmol, 10 mL, No Longer The phosphate + Route: IVPB, Active 2015 [place] sodium chloride PRN, Dosing 0.9% INJ 250 mL Weight 64.682, kg, PRN Abnormal Lab Result, For NON-ICU Patients Only., Start date: 08/22/16 4:54:00 CDT, Duration: 30 day, Stop date: 09/21/16 4:53:00 CDTNotes: (Same as: K Phosphate.) 1 mMol phoshate has 1.47 mEq potassium Infuse over 4 hours Ketorolac 15 mg, 0.5 mL, No Longer The Route: IVP, Active 2015 [place] Drug form: INJ, Q6H, Dosing Weight 64.682, kg, PRN Pain Score 4-6, Start date: 08/21/16 9:53:00 CDT, Stop date: 08/23/16 10:00:00 CDTNotes: (Same as:Toradol) IV bolus must be given >15 seconds. Give IM administration slowly and deeply into the muscle. Not for use > 4 days MEDICATION WASTE Product Size: 30 mg Product Wasted: 15 mg Zosyn 3.375 gm, No Longer The Route: IVPB, Active 2015 [place] ABXQ8H, Dosing Weight 64.682, kg, CrCl >=20 ml/min infuse over 4 hours, Start date: 08/21/16 9:00:00 CDT, Duration: 30 day, Stop date: 09/20/16 1:00:00 CDTNotes: (Same as: Zosyn) Dosing based on Piperacillin component MEDICATION WASTE Product Size: 3375 mg Product Wasted: ___ mg Acetaminophen 325 1 tab, Route: No Longer The MG / Hydrocodone PO, Drug Form: Active 2015 [place] Bitartrate 5 MG TAB, Dosing Oral Tablet Weight 64.682, kg, TID, PRN Pain Score 7-10, Start date: 08/21/16 8:08:00 CDT, Duration: 30 day, Stop date: 09/20/16 8:07:00 CDTNotes: (Same as: [place] 325/5) Do not exceed 4gm/day of acetaminophen. Acetaminophen 650 mg, 2 tab, No Longer The Route: PO, Drug Active 2015 [place] form: TAB, Q4H, Dosing Weight 64.682, kg, PRN Pain 1-3/Temp > 100.4 F, Start date: 08/21/16 8:08:00 CDT, Duration: 30 day, Stop date: 09/20/16 8:07:00 CDTNotes: Do not exceed 4 gm/day. (Same as: Tylenol) Sodium Chloride 1,000 mL, 1,000 Inactive The 0.154 MEQ/ML ml/hr, Infuse 2015 [place] Injectable Over: 1 hr, Solution Route: IV, 1,000, Drug form: INJ, Q1H, Priority: STAT, Dosing Weight 64.682 kg, Start date: 08/21/16 8:06:00 CDT, Duration: 4 doses or times, Stop date: 08/21/16 11:06:00 CDT Zofran 4 mg, 2 mL, No Longer The Route: IVP, Active 2015 [place] Drug form: INJ, Q4H, Dosing Weight 64.682, kg, PRN as needed for nausea/vomiting , Priority: STAT, Start date: 08/21/16 5:31:00 CDT, Duration: 30 day, Stop date: 09/20/16 5:30:00 CDTNotes: (Same as: Zofran) MEDICATION WASTE Product Size: 4 mg Product Wasted: ___ mg Morphine 4 mg, 1 mL, Inactive The Route: IVP, 2015 [place] Drug form: INJ, Q4H, Dosing Weight 64.682, kg, PRN Pain Score 4-6, Priority: Routine, Start date: 08/21/16 5:31:00 CDT, Duration: 30 day, Stop date: 09/20/16 5:30:00 CDTNotes: (Same as:MORPhine Sulfate) Metronidazole 500 mg, 100 mL, No Longer The Route: IVPB, Active 2015 [place] Drug form: INJ, ABXQ8H, Dosing Weight 64.682, kg, Priority: STAT, Start date: 08/21/16 5:30:00 CDT, Duration: 30 day, Stop date: 09/19/16 21:30:00 CDTNotes: (Same as: Flagyl) Avoid alcohol. NS + KCL 20mEq/L 1,000 mL, Rate: No Longer The 1000ml (Premix) 125 ml/hr, Active 2015 [place] 1,000 mL Infuse over: 8 hr, Route: IV, Dosing Weight 64.682 kg, Total Volume: 1,000, Start date: 08/21/16 5:29:00 CDT, Stop date: 08/23/16 9:54:00 CDTNotes: PREMIX IV - Do Not Alter WASTE: F/P - Sink; E - Municipal Trash Bin Zofran 4 mg, 2 mL, Inactive The Route: IVP, 2015 [place] Drug form: INJ, ONCE, Dosing Weight 64.682, kg, Priority: STAT, Start date: 08/21/16 5:24:00 CDT, Stop date: 08/21/16 5:24:00 CDTNotes: (Same as: Zofran) MEDICATION WASTE Product Size: 4 mg Product Wasted: ___ mg sodium chloride 1,000 mL, Rate: No Longer The 0.9% 1000 ml INJ 999 ml/hr, Active 2015 1,000 mL Infuse over: 1 hr, Route: IV, Dosing Weight 64.682 kg, Total Volume: 1,000, Start date: 08/21/16 5:23:00 CDT, Duration: 30 day, Stop date: 09/20/16 5:22:00 CDT 200 ML 400 mg, 200 mL, Inactive The Ciprofloxacin 2 Route: IV, Drug 2015 MG/ML Injection form: INJ, [Cipro] [id number], Dosing Weight 64.682, kg, Start date: 08/21/16 4:00:00 CDT, Duration: 30 day, Stop date: 09/19/16 16:00:00 CDTNotes: Do not refrigerate 200 ML 400 mg, 200 mL, Inactive The Ciprofloxacin 2 Route: IV, Drug 2015 MG/ML Injection form: INJ, [Cipro] ONCE, Dosing Weight 64.682, kg, Start date: 08/21/16 3:19:00 CDT, Stop date: 08/21/16 3:19:00 CDTNotes: Do not refrigerate Flagyl 500 mg, 100 mL, Inactive The Route: IVPB, [place] Drug form: INJ, ONCE, Dosing Weight 64.682, kg, Priority: STAT, Start date: 08/21/16 3:18:00 CDT, Stop date: 08/21/16 3:18:00 CDTNotes: (Same as: Flagyl) Avoid alcohol. Sodium Chloride 1,000 mL, 1,000 Inactive The 0.154 MEQ/ML ml/hr, Infuse 2015 [place] Injectable Over: 1 hr, Solution Route: IV, 1,000, Drug form: INJ, ONCE, Priority: STAT, Dosing Weight 64.682 kg, Start date: 08/21/16 3:15:00 CDT, Duration: 1 doses or times, Stop date: 08/21/16 3:15:00 CDT Morphine 4 mg, 1 mL, Inactive The Route: IVP, 2015 [place] Drug form: INJ, ONCE, Dosing Weight 64.682, kg, Priority: STAT, Start date: 08/21/16 3:15:00 CDT, Stop date: 08/21/16 3:15:00 CDTNotes: (Same as:MORPhine Sulfate) Ketorolac 15 mg, 0.5 mL, Inactive The Route: IVP2015 [place] Drug form: INJ, ONCE, Dosing Weight 64.682, kg, Priority: STAT, Start date: 08/21/16 3:15:00 CDT, Stop date: 08/21/16 3:15:00 CDTNotes: (Same as:Toradol) IV bolus must be given >15 seconds. Give IM administration slowly and deeply into the muscle. Not for use > 4 days MEDICATION WASTE Product Size: 30 mg Product Wasted: ___ mg Rocephin 1 gm, Route: Inactive The IVPB, ONCE, 2015 [place] Dosing Weight 64.682, kg, Priority: STAT, Start date: 08/21/16 2:10:00 CDT, Stop date: 08/21/16 2:10:00 CDTNotes: (Same As: Rocephin). Use with 100 mL NS and infuse over 30 min MEDICATION WASTE Product Size: 1000 mg Product Wasted: ___ mg Ondansetron 4 mg, 2 mL, Inactive The Route: IVP, 2015 [place] Drug form: INJ, ONCE, Dosing Weight 64.682, kg, Priority: STAT, Start date: 08/21/16 1:20:00 CDT, Stop date: 08/21/16 1:20:00 CDTNotes: (Same as: Zofran) MEDICATION WASTE Product Size: 4 mg Product Wasted: ___ mg Morphine 4 mg, 1 mL, Inactive The Route: IVP, [place] Drug form: INJ, ONCE, Dosing Weight 64.682, kg, Priority: STAT, Start date: 08/21/16 1:20:00 CDT, Stop date: 08/21/16 1:20:00 CDTNotes: (Same as:MORPhine Sulfate) Saline Flush 0.9% 10 mL, Route: No Longer The IVP, Drug Form: Active 2015 [place] INJ, Dosing Weight 64.682, kg, PRN, PRN Line Flush, Start date: 08/21/16 1:20:00 CDT, Duration: 30 day, Stop date: 09/20/16 1:19:00 CDTNotes: Same as: BD Posiflush Sterile Sodium Chloride 1,000 mL, 2,000 Inactive The 0.154 MEQ/ML ml/hr, Infuse 2015 [place] Injectable Over: 30 Solution minutes, Route: IV, 1,000, Drug form: INJ, ONCE, Priority: STAT, Dosing Weight 64.682 kg, Start date: 08/21/16 1:20:00 CDT, Duration: 1 doses or times, Stop date: 08/21/16 1:20:00 CDT Ondansetron 4 MG 4 mg=1 tab, PO, Active The Disintegrating BID, PRN Nausea 2015 [place] Tablet [Zofran] and Vomiting, Dissolve tab under tongue, X 5 day, # 10 tab, 0 Refill(s) Zofran ODT 4 mg, 1 tab, Inactive The Route: PO, Drug 2015 [place] form: TABDIS, ONCE, Dosing Weight 66.818, kg, Priority: STAT, Start date: 07/23/16 19:51:00 CDT, Stop date: 07/23/16 19:51:00 CDTNotes: (Same as: Zofran ODT) Acetaminophen 325 1 tab, Route: Inactive The MG / Hydrocodone PO, Drug Form: 2015 Bitart[place] 5 MG TAB, Dosing Oral Tablet Weight 66.818, [[place] 5/325] kg, ONCE, STAT, Start date: 07/23/16 19:51:00 CDT, Stop date: 07/23/16 19:51:00 CDTNotes: (Same as: [place] 325/5) Do not exceed 4gm/day of acetaminophen. Zofran 4 mg, 2 mL, Inactive The Route: IVP, 2015 [place] Drug form: INJ, ONCE, Dosing Weight 62.727, kg, Start date: 03/12/16 9:16:00 CDT, Stop date: 03/12/16 9:16:00 CDTNotes: (Same as: Zofran) MEDICATION WASTE Product Size: 4 mg Product Wasted: ___ mg Pyridium 200 mg, 2 tab, Inactive The Route: PO, Drug 2015 [place] form: TAB, TID-After Meals, Dosing Weight 68.182, kg, Start date: 03/12/16 8:30:00 CDT, Duration: 30 day, Stop date: 04/10/16 17:30:00 CDTNotes: Give with meals. (Same as: Pyridium) Macrobid 100 mg, PO, No Longer The BID, # 14 cap, Active 2015 [place] 0 Refill(s) Ceftriaxone 1 gm, Route: No Longer The IVPB, Drug Active 2015 [place] form: PDR/INJ, [id number], Dosing Weight 68.182, kg, Start date: 03/11/16 22:00:00 CDT, Duration: 30 day, Stop date: 04/09/16 22:00:00 CDTNotes: (Same As: Rocephin). Use with 100 mL NS and infuse over 30 min MEDICATION WASTE Product Size: 1000 mg Product Wasted: ___ mg zolpidem 5 mg, 1 tab, No Longer The Route: PO, Drug Active 2015 [place] form: TAB, Bedtime, Dosing Weight 68.182, kg, PRN Insomnia, Start date: 03/11/16 21:12:00 CDT, Duration: 30 day, Stop date: 04/10/16 21:11:00 CDTNotes: (Same As: Pitaien) Simethicone 160 mg, 2 tab, No Longer The Route: PO, Drug Active 2015 [place] form: CHEWTAB, Q8H, Dosing Weight 68.182, kg, PRN Gas, Start date: 03/11/16 21:12:00 CDT, Duration: 30 day, Stop date: 04/10/16 21:11:00 CDTNotes: (Same as: Mylicon) Acetaminophen 650 mg, 2 tab, No Longer The Route: PO, Drug Active 2015 [place] form: TAB, Q4H, Dosing Weight 68.182, kg, PRN For Temp > 100.4 F, Start date: 03/11/16 21:12:00 CDT, Duration: 30 day, Stop date: 04/10/16 21:11:00 CDTNotes: Do not exceed 4 gm/day. (Same as: Tylenol) Acetaminophen 325 1 tab, Route: No Longer The MG / Hydrocodone PO, Drug Form: Active [place] Bitartrate 5 MG TAB, Dosing Oral Tablet Weight 68.182, kg, Q4H, PRN Pain Score 1-3, Start date: 03/11/16 21:12:00 CDT, Duration: 30 day, Stop date: 04/10/16 21:11:00 CDTNotes: (Same as: [place] 325/5) Do not exceed 4gm/day of acetaminophen. Bisacodyl 10 mg, 1 supp, No Longer The Route: OR, Drug Active 2015 [place] form: SUPP, PRN, Dosing Weight 68.182, kg, PRN Gas, Start date: 03/11/16 21:12:00 CDT, Duration: 30 day, Stop date: 04/10/16 21:11:00 CDTNotes: (Same As: Dulcolax, Bisco-Lax) Lactated Ringers 1,000 mL, Rate: No Longer The IV 1,000 mL 125 ml/hr, Active 2015 [place] Infuse over: 8 hr, Route: IV, Dosing Weight 68.182 kg, Total Volume: 1,000, Start date: 03/11/16 21:12:00 CDT, Duration: 30 day, Stop date: 04/10/16 21:11:00 CDT Pyridium 200 mg, 2 tab, Inactive The Route: PO, Drug 2015 [place] form: TAB, ONCE, Dosing Weight 68.182, kg, Priority: STAT, Start date: 03/11/16 20:26:00 CDT, Stop date: 03/11/16 20:26:00 CDTNotes: Give with meals. (Same as: Pyridium) Ondansetron 4 mg, 2 mL, Inactive The Route: IVP, 2015 [place] Drug form: INJ, ONCE, Dosing Weight 68.182, kg, Priority: STAT, Start date: 03/11/16 19:57:00 CDT, Stop date: 03/11/16 19:57:00 CDTNotes: (Same as: Zofran) MEDICATION WASTE Product Size: 4 mg Product Wasted: ___ mg Calcium Chloride 1,000 mL, Rate: No Longer The 0.0014 MEQ/ML / 125 ml/hr, Active 2015 [place] Potassium Infuse over: 8 Chloride 0.004 hr, Route: IV, MEQ/ML / Sodium Dosing Weight Chloride 0.103 68.182 kg, MEQ/ML / Sodium Total Volume: Lactate 0.028 1,000, Start MEQ/ML Injectable date: 03/11/16 Solution 19:57:00 CDT, Duration: 30 day, Stop date: 04/10/16 19:56:00 CDT Morphine 2 mg, 1 mL, Inactive The Route: IV, Drug 2015 [place] form: INJ, ONCE, Dosing Weight 68.182, kg, Priority: STAT, Start date: 03/11/16 19:57:00 CDT, Stop date: 03/11/16 19:57:00 CDTNotes: (Same as:MORPhine Sulfate) Morphine 2 mg, 1 mL, Inactive The Route: IVP, 2015 [place] Drug form: INJ, Q5Min, Dosing Weight 68.182, kg, PRN Pain Score 4-6, Start date: 02/26/16 10:40:00 CDT, Duration: 5 doses or times, Stop date: Limited # of timesNotes: (Same as:MORPhine Sulfate) Ketorolac 30 mg, 1 mL, Inactive The Route: IV2015 [place] Drug form: INJ, ONCE, Dosing Weight 68.182, kg, Start date: 02/26/16 10:31:00 CDT, Duration: 1 doses or times, Stop date: 02/26/16 10:31:00 CDTNotes: (Same as:Toradol) IV bolus must be given >15 seconds. Give IM administration slowly and deeply into the muscle. Not for use > 4 days MEDICATION WASTE Product Size: 30 mg Product Wasted: ___ mg Fentanyl 25 microgram, Inactive The 0.5 mL, Route: 2015 [place] IV, Drug form: INJ, Q5Min, Dosing Weight 68.182, kg, PRN Pain Score 4-6, Start date: 02/26/16 10:31:00 CDT, Duration: 4 doses or times, Stop date: Limited # of timesNotes: (Same as: Sublimaze) Preservative free. Flumazenil 0.2 mg, 2 mL, Inactive The Route: IV2015 [place] Drug form: INJ, PRN, Dosing Weight 68.182, kg, PRN Benzodiazepine Reversal, Initial dose, Start date: 02/26/16 10:31:00 CDT, Duration: 30 day, Stop date: 03/27/16 10:30:00 CDTNotes: (Same as: Romazicon) Naloxone 0.04 mg, 0.1 Inactive The mL, Route: IV2015 [place] Drug form: INJ, Q2MIN, Dosing Weight 68.182, kg, PRN Narcotic Reversal, Start date: 02/26/16 10:31:00 CDT, Duration: 8 doses or times, Stop date: Limited # of timesNotes: Same as Narcan Diphenhydramine 12.5 mg, 0.25 Inactive The mL, Route: IV2015 [place] Drug form: INJ, Q6H, Dosing Weight 68.182, kg, PRN Itching, Start date: 02/26/16 10:31:00 CDT, Duration: 30 day, Stop date: 03/27/16 10:30:00 CDTNotes: (Same as: Laxmil) Ondansetron 4 mg, 2 mL, Inactive The Route: IVP, 2015 [place] Drug form: INJ, ONCE, Dosing Weight 68.182, kg, PRN Nausea & Vomiting, Start date: 02/26/16 10:31:00 CDTNotes: (Same as: Zofran) MEDICATION WASTE Product Size: 4 mg Product Wasted: ___ mg Lactated Ringers 1,000 mL, Rate: No Longer The IV 1,000 mL 40 ml/hr, Active 2015 [place] Infuse over: 25 hr, Route: IV, Dosing Weight 68.182 kg, Total Volume: 1,000, Start date: 02/26/16 9:24:00 CDT, Duration: 30 day, Stop date: 03/27/16 9:23:00 CDT Acetaminophen 325 2 tab, Route: No Longer The MG / Hydrocodone PO, Drug Form: Active 2015 [place] Bitartrate 10 MG TAB, Dosing Oral Tablet Weight 68.182, [[place] 10/325] kg, Q4H, PRN Pain Score 4-6, Start date: 02/25/16 13:52:00, Duration: 30 day, Stop date: 03/26/16 13:51:00Notes: Do not exceed 4gm/day of acetaminophen. (Same as: [place] 325/10) ketOROLAC 30 30 mg, 1 mL, Inactive The mg/mL injectable Route: IV, Drug 2015 [place] solution form: INJ, ONCE, Dosing Weight 68.182, kg, Start date: 02/25/16 13:52:00, Duration: 1 doses or times, Stop date: 02/25/16 13:52:00Notes: (Same as:Toradol) IV bolus must be given >15 seconds. Give IM administration slowly and deeply into the muscle. Not for use > 4 days MEDICATION WASTE Product Size: 30 mg Product Wasted: ___ mg multivitamin, 1 tab, Route: No Longer The PO, Drug Form: Active 2015 [place] TAB, Dosing Weight 68.182, kg, Daily, Start date: 02/24/16 9:00:00, Duration: 30 day, Stop date: 03/24/16 9:00:00 Ancef 2 gm, 50 mL, No Longer The Route: IVPB, Active [facility] Drug form: INJ, ABXQ8H, Dosing Weight 68.182, kg, Start date: 02/24/16 7:00:00, Duration: 30 day, Stop date: 03/25/16 0:00:00 Phenergan 12.5 mg, 50 mL, No Longer The Route: IVPB, Active [facility] Drug form: SOLN, Q8H, Dosing Weight 68.182, kg, PRN Nausea, Priority: STAT, Start date: 02/24/16 6:01:00, Duration: 30 day, Stop date: 03/25/16 6:00:00 Morphine 2 mg, 1 mL, No Longer The Route: IVP, Active [place] Drug form: INJ, Q4H, Dosing Weight 68.182, kg, PRN Other -See Comment, Priority: STAT, Start date: 02/24/16 6:01:00, Duration: 30 day, Stop date: 03/25/16 6:00:00Notes: (Same as:MORPhine Sulfate) Saline Flush 0.9% 10 ml, Route: No Longer The IVP, Drug Form: Active [facility] INJ, Dosing Weight 68.182, kg, PRN, PRN Line Flush, Start date: 02/24/16 5:56:00, Duration: 30 day, Stop date: 03/25/16 5:55:00Notes: Same as: BD Posiflush Sterile Lactated Ringers 1,000 mL, Rate: No Longer The IV 1,000 mL 125 ml/hr, Active [facility] Infuse over: 8 hr, Route: IV, Dosing Weight 68.182 kg, Total Volume: 1,000, Start date: 02/24/16 5:56:00, Duration: 30 day, Stop date: 03/25/16 5:55:00 Morphine 2 mg, 1 mL, Inactive The Route: IVP, [place] Drug form: INJ, ONCE, Dosing Weight 68.182, kg, Priority: STAT, Start date: 02/24/16 5:55:00, Stop date: 02/24/16 5:55:00Notes: (Same as:MOR[place] Sulfate) Acetaminophen 300 1 tab, PO, Q6H, No Longer The MG / Codeine PRN Pain, # 60 Active 2015 [place] Phosphate 30 MG tab, 0 Oral Tablet Refill(s) [Tylenol with Codeine #3] Acetaminophen 325 1 tab, PO, Q6H, No Longer The MG / Hydrocodone PRN for pain, # Active 2015 [place] Bitartrate 10 MG 24 tab, 0 Oral Tablet Refill(s) [[place] 10/325] nitrofurantoin 100 mg=1 cap, No Longer The macrocrystals 100 PO, Daily, 0 Active 2015 [place] mg oral capsule Refill(s) (Macrodantin) Lactated Ringers 1,000 mL, Rate: No Longer The IV 1,000 mL 125 ml/hr, Active 2015 [place] Infuse over: 8 hr, Route: IV, Dosing Weight 68.182 kg, Total Volume: 1,000, Start date: 02/24/16 5:00:00, Duration: 30 day, Stop date: 03/25/16 4:59:00 Phenazopyridine 100 mg=1 tab, Active The hydrochloride 100 PO, BID, PRN 2015 [place] MG Oral Tablet Dysuria, X 10 [Pyridium] day, # 20 tab, 0 Refill(s), given to patient Milk of Magnesia 30 mL, Route: No Longer The PO, Drug Form: Active 2015 [place] SUSP, Dosing Weight 68.182, kg, TID, Start date: 02/20/16 21:00:00, Duration: 30 day, Stop date: 03/21/16 17:00:00Notes: (Same as: Milk of Magnesia, MOM) Acetaminophen 325 1 tab, Route: No Longer The MG / Hydrocodone PO, Drug Form: Active 2015 [place] Bitartrate 10 MG TAB, Dosing Oral Tablet Weight 68.182, [[place] 10/325] kg, Q4H, PRN Pain Score 4-6, Start date: 02/20/16 20:03:00, Duration: 30 day, Stop date: 03/21/16 20:02:00Notes: Do not exceed 4gm/day of acetaminophen. (Same as: [place] 325/10) multivitamin, 1 tab, Route: No Longer The PO, Drug Form: Active [place] TAB, Dosing Weight 68.182, kg, Daily, Start date: 02/20/16 9:00:00, Duration: 30 day, Stop date: 03/20/16 9:00:00 Pyridium 100 mg, 1 tab, No Longer The Route: PO, Drug Active [place] form: TAB, TID-After Meals, Dosing Weight 68.182, kg, Start date: 02/20/16 8:30:00, Duration: 2 day, Stop date: 02/21/16 17:30:00Notes: Give with meals. (Same as: Pyridium) Promethazine 12.5 mg, 50 mL, No Longer The Route: IVPB, Active [place] Drug form: SOLN, Q6H, Dosing Weight 68.182, kg, PRN Nausea, Start date: 02/19/16 11:07:00, Duration: 30 day, Stop date: 03/20/16 11:06:00 Morphine 2 mg, 1 mL, No Longer The Route: IV, Drug Active [place] form: INJ, Q4H, Dosing Weight 68.182, kg, PRN Pain Score 1-5, Start date: 02/19/16 11:06:00, Duration: 30 day, Stop date: 03/20/16 11:05:00Notes: (Same as:MORPhine Sulfate) Saline Flush 0.9% 10 ml, Route: No Longer The IVP, Drug Form: Active 2015 [place], Dosing Weight 68.182, kg, PRN, PRN Line Flush, Start date: 02/19/16 9:57:00, Duration: 30 day, Stop date: 03/20/16 9:56:00Notes: Same as: BD Posiflush Sterile Lactated Ringers 1,000 mL, Rate: No Longer The IV 1,000 mL 125 ml/hr, Active 2015 [place] Infuse over: 8 hr, Route: IV, Dosing Weight 68.182 kg, Total Volume: 1,000, Start date: 02/19/16 9:57:00, Duration: 30 day, Stop date: 03/20/16 9:56:00 Ondansetron 4 mg, 2 mL, Inactive The Route: IVP, 2015 [place] Drug form: INJ, ONCE, Dosing Weight 68.182, kg, Priority: STAT, Start date: 02/19/16 8:23:00, Stop date: 02/19/16 8:23:00Notes: (Same as: April) MEDICATION WASTE Product Size: 4 mg Product Wasted: ___ mg Morphine 2 mg, 1 mL, Inactive The Route: IV, Drug 2015 [place] form: INJ, ONCE, Dosing Weight 68.182, kg, Priority: STAT, Start date: 02/19/16 8:23:00, Stop date: 02/19/16 8:23:00Notes: (Same as:MORPhine Sulfate) Calcium Chloride 500 mL, 1,000 Inactive The 0.0014 MEQ/ML / ml/hr, Infuse 2015 [place] Potassium Over: 0.5 hr, Chloride 0.004 Route: IV, 500, MEQ/ML / Sodium Drug form: INJ, Chloride 0.103 ONCE, Dosing MEQ/ML / Sodium Weight 68.182 Lactate 0.028 kg, Start date: MEQ/ML Injectable 02/19/16 Solution 8:23:00, Stop date: 02/19/16 8:23:00 -U oral 1 cap, Route: No Longer The capsule PO, Drug Form: Active 2015 [place] CAP, Dosing Weight 3.1, kg, Daily, Start date: 02/17/16 9:00:00, Duration: 30 day, Stop date: 03/17/16 9:00:00 Acetaminophen 325 2 tab, Route: Inactive The MG / Hydrocodone PO, Drug Form: [place] Bitartrate 5 MG TAB, Dosing Oral Tablet Weight 3.1, kg, [[place] 5/325] Q6H, PRN Pain Score 4-6, Start date: 02/17/16 6:13:00, Duration: 30 day, Stop date: 03/18/16 6:12:00Notes: (Same as: [place] 325/5) Do not exceed 4gm/day of acetaminophen. Acetaminophen 300 1 tab, PO, Q6H, Active The MG / Codeine PRN Pain, X 15 2015 [place] Phosphate 30 MG day, # 60 tab, Oral Tablet 0 Refill(s) [Tylenol with Codeine #3] Docusate Sodium 100 mg, 1 cap, No Longer The 100 MG Oral Route: PO, Drug Active 2015 [place] Capsule [Colace] form: CAP, BID, Dosing Weight 3.1, kg, Start date: 02/16/16 20:35:00, Duration: 30 day, Stop date: 03/17/16 17:00:00Notes: (Same as: Colace) (Do Not Crush) Protonix 40 mg, 1 tab, No Longer The Route: PO, Drug Active 2015 [place] form: ECTAB, PRN, PRN Indigestion, Start date: 02/16/16 16:09:00, Duration: 30 day, Stop date: 03/17/16 16:08:00Notes: Tablet should not be chewed or crushed. (Same as: Protonix) Omeprazole 20 mg, Route: Inactive The PO, Drug form: 2015 [place] ECTAB, PRN, Dosing Weight 3.1, kg, PRN Heartburn, Start date: 02/16/16 15:59:00, Duration: 30 day, Stop date: 03/17/16 15:58:00 D5W 1/2NS + KCL 1,000 mL, Rate: No Longer The 20mEq/L 1000ml 75 ml/hr, Active 2015 [place] (Premix) 1,000 mL Infuse over: 13.3 hr, Route: IV, Dosing Weight 3.1 kg, Total Volume: 1,000, Start date: 02/16/16 15:58:00, Duration: 30 day, Stop date: 03/17/16 15:57:00Notes: PREMIX IV - Do Not Alter WASTE: F/P - Sink; E - [employer]ash [employer] Levsin SL 0.125 mg, 1 No Longer The tab, Route: SL, Active 2015 [place] Drug form: TAB, Q4H, Dosing Weight 3.1, kg, PRN Bladder Spasm, Start date: 02/16/16 15:58:00, Duration: 30 day, Stop date: 03/17/16 15:57:00Notes: (Same as: Levsin) Take 30 min before meal Levalbuterol 0.63 mg, 3 mL, Inactive The Route: [facility]2015 [place] Drug form: SOLN, Q20Min, Dosing Weight 3.1, kg, PRN Wheezing, Start date: 02/16/16 15:53:00, Duration: 4 doses or times, Stop date: Limited # of timesNotes: SEE RT DOCUMENTATION (Same as:Xopenex) Non-Formulary Diphenhydramine 12.5 mg, 0.25 Inactive The mL, Route: IV2015 [place] Drug form: INJ, PRN, Dosing Weight 3.1, kg, PRN Itching, Start date: 02/16/16 15:53:00, Duration: 30 day, Stop date: 03/17/16 15:52:00Notes: (Same as: Benadryl) Racepinephrine 11.25 mg, 0.5 Inactive The mL, Route: [facility]2015 [place] Drug Form: SOLN, Dosing Weight 3.1, kg, PRN, PRN Shortness of breath, Start date: 02/16/16 15:53:00, Duration: 30 day, Stop date: 03/17/16 15:52:00Notes: (racepinephrine *2.25% inh 0.5ml SOLN) (Same as:S2) Glycopyrrolate 0.2 mg, 1 mL, Inactive The Route: [facility]2015 [place] Drug form: INJ, Q5Min, Dosing Weight 3.1, kg, PRN Bradycardia, Start date: 02/16/16 15:53:00, Duration: 3 doses or times, Stop date: Limited # of timesNotes: (Same as: [place]) Naloxone 0.04 mg, 0.1 Inactive The mL, Route: IV2015 [place] Drug form: INJ, Q2MIN, Dosing Weight 3.1, kg, PRN Narcotic Reversal, Start date: 02/16/16 15:53:00, Duration: 8 doses or times, Stop date: Limited # of timesNotes: Same as Narcan Ephedrine 5 mg, 0.1 mL, Inactive The Route: IV2015 [place] Drug form: INJ, Q5Min, Dosing Weight 3.1, kg, PRN Low Blood Pressure, Start date: 02/16/16 15:53:00, Duration: 30 day, Stop date: 03/17/16 15:52:00Notes: (Same as: ePHEDrine Sulfate) Ondansetron 4 mg, 2 mL, Inactive The Route: IV2015 [place] Drug form: INJ, ONCE, Dosing Weight 3.1, kg, PRN Nausea & Vomiting, Start date: 02/16/16 15:53:00Notes: (Same as: Zofran) MEDICATION WASTE Product Size: 4 mg Product Wasted: ___ mg Promethazine 6.25 mg, 25 mL, Inactive The Route: IV2015 [place] Drug form: SOLN, ONCE, Dosing Weight 3.1, kg, PRN Nausea & Vomiting, Start date: 02/16/16 15:53:00 Fentanyl 25 microgram, Inactive The 0.5 mL, Route: 2015 [place] IV, Drug form: INJ, Q5Min, Dosing Weight 3.1, kg, PRN Pain Score 4-6, Start date: 02/16/16 15:53:00, Duration: 4 doses or times, Stop date: Limited # of timesNotes: (Same as: Sublimaze) Preservative free. Flumazenil 0.2 mg, 2 mL, Inactive The Route: IV2015 [place] Drug form: INJ, PRN, Dosing Weight 3.1, kg, PRN Benzodiazepine Reversal, Initial dose, Start date: 02/16/16 15:53:00, Duration: 30 day, Stop date: 03/17/16 15:52:00Notes: (Same as: Romazicon) Hydromorphone 0.5 mg, 0.5 mL, Inactive The Route: IVP, 2015 [place] Drug form: INJ, Q5Min, Dosing Weight 3.1, kg, PRN Pain Score 7-10, Start date: 02/16/16 15:53:00, Duration: 4 doses or times, Stop date: Limited # of timesNotes: Same as: Dilaudid Albuterol 0.83 2.49 mg, 3 mL, Inactive The MG/ML Inhalant Route: NEB, 2015 [place] Solution Drug form: SOLN, Q5Min, Dosing Weight 3.1, kg, PRN Wheezing, Priority: STAT, Start date: 02/16/16 15:53:00, Duration: 30 day, Stop date: 03/17/16 15:52:00Notes: SEE RT DOCUMENTATION (Same as: Proventil) Calcium Chloride 1,000 mL, Rate: Inactive The 0.0014 MEQ/ML / 50 ml/hr, 2015 [place] Potassium Infuse over: 20 Chloride 0.004 hr, Route: IV, MEQ/ML / Sodium Dosing Weight Chloride 0.103 3.1 kg, Total MEQ/ML / Sodium Volume: 1,000, Lactate 0.028 Start date: MEQ/ML Injectable 02/16/16 Solution 15:53:00, Duration: 30 day, Stop date: 03/17/16 15:52:00 Labetalol 10 mg, 2 mL, Inactive The Route: IVP, 2015 [place] Drug form: INJ, Q5Min, Dosing Weight 3.1, kg, PRN Elevated BP, Start date: 02/16/16 15:53:00, Duration: 5 doses or times, Stop date: Limited # of times LR IV 1,000 mL 1,000 mL, Rate: No Longer The 40 ml/hr, Active 2015 [place] Infuse over: 25 hr, Route: IV, Dosing Weight 3.1 kg, Total Volume: 1,000, Start date: 02/16/16 12:37:00, Duration: 30 day, Stop date: 03/17/16 12:36:00 Meperidine 25 mg, 1 mL, No Longer The Route: IM, Drug Active 2015 [place] form: INJ, Q6H, Dosing Weight 3.1, kg, PRN Pain Score 4-6, Start date: 02/15/16 8:21:00, Duration: 4 day, Stop date: 02/19/16 8:20:00Notes: (Same as: Demerol) "Use Precaution in Elderly, Seizure disorders, and Renal impairment" Demerol HCl 25 mg, 1 mL, Inactive The Route: IM, Drug 2015 [place] form: INJ, ONCE, Dosing Weight 3.1, kg, PRN Pain Score 1-5, Start date: 02/15/16 0:31:00, Stop date: 02/19/16 0:30:00Notes: (Same as: Demerol) "Use Precaution in Elderly, Seizure disorders, and Renal impairment" Tylenol 650 mg, 2 tab, No Longer The Route: PO, Drug Active 2015 [place] form: TAB, Q6H, Dosing Weight 3.1, kg, PRN Pain Score 1-3, Start date: 02/15/16 0:30:00, Duration: 30 day, Stop date: 03/16/16 0:29:00Notes: Do not exceed 4 gm/day. (Same as: Tylenol) influenza virus 0.5 mL, Route: Inactive The vaccine, IM, Drug Form: 2015 [place] SUSP, QAM, Start date: 02/14/16 9:00:00, Stop date: 02/14/16 18:00:00Notes: (Same as: Fluzone PF Pediatric) For patients 6 - 35 months of age (0.25 mL IM) Shake well before use Ancef 2 gm, 50 mL, No Longer The Route: IVPB, Active 2015 [place] Drug form: INJ, ABXQ8H, Dosing Weight 68.182, kg, Start date: 02/13/16 23:59:00, Duration: 30 day, Stop date: 03/14/16 15:59:00 multivitamin, 1 tab, Route: No Longer The PO, Drug Form: Active 2015 [place] TAB, Dosing Weight 68.182, kg, Daily, Start date: 02/13/16 9:00:00, Duration: 30 day, Stop date: 03/13/16 9:00:00 influenza virus 0.5 mL, Route: Inactive The vaccine, IM, Drug Form: 2015 [place] inactivated SUSP, Daily, Start date: 02/13/16 9:00:00, Duration: 1 doses or times, Stop date: 02/13/16 9:00:00Notes: (Same as: Fluzone PF Pediatric) For patients 6 - 35 months of age (0.25 mL IM) Shake well before use -U oral 1 cap, PO, On Hold The capsule Daily, # 30 2015 [place] cap, 0 Refill(s) omeprazole 20 mg 20 mg=1 tab, On Hold The oral enteric PO, PRN, # 30 2015 [place] coated tablet tab, 3 Refill(s) doxylamine 1 tab, PO, On Hold The succinate 10 MG / Bedtime, # [address] [place] [address] Pyridoxine tab, 0 Hydrochloride 10 Refill(s) MG Enteric Coated Tablet [Diclegis] Morphine 2 mg, 1 mL, No Longer The Route: IVP, Active 2015 [place] Drug form: INJ, Q4H, Dosing Weight 68.182, kg, Priority: STAT, Start date: 02/12/16 22:13:00, Duration: 30 day, Stop date: 03/13/16 20:00:00Notes: (Same as:MORPhine Sulfate) Saline Flush 0.9% 10 ml, Route: No Longer The IVP, Drug Form: Active 2015 [place] INJ, Dosing Weight 68.182, kg, PRN, PRN Line Flush, Start date: 02/12/16 22:10:00, Duration: 30 day, Stop date: 03/13/16 22:09:00Notes: Same as: BD Posiflush Sterile Ancef 2 gm, 50 mL, No Longer The Route: IVPB, Active 2015 [place] Drug form: INJ, ABXQ8H, Dosing Weight 68.182, kg, Priority: STAT, Start date: 02/12/16 21:22:00, Duration: 30 day, Stop date: 03/13/16 14:00:00 LR IV 1,000 mL 1,000 mL, Rate: No Longer 03/28/ The 125 ml/hr, Active 2015 [place] Infuse over: 8 hr, Route: IV, Dosing Weight 68.182 kg, Total Volume: 1,000, Start date: 02/12/16 21:18:00, Duration: 30 day, Stop date: 03/13/16 21:17:00 Metronidazole 500 2,000 mg=4 tab, Inactive [place] [facility] Oral Tablet PO, ONCE, # 4 2014 [facility] tab, 0 Center Refill(s) emtricitabine 200 1 tab, Route: Inactive [place] MG / Tenofovir PO, Dosing 2014 [facility] disoproxil Weight 54.545, Center fumarate 300 MG kg, ONCE, Oral Tablet ([place]), STAT, Start date: 08/13/15 3:49:00, Stop date: 08/13/15 3:49:00 raltegravir 400 mg, Route: Inactive 08/13[facility] [place] PO, ONCE, 2014 [facility] Dosing Weight [facility] 54.545, kg, ([place]), Priority: STAT, Start date: 08/13/15 3:49:00, Stop date: 08/13/15 3:49:00 Azithromycin 1 gm, Route: Inactive [place] PO, ONCE, 2014 [facility] Dosing [facility] 54.545, kg, Start date: 08/13/15 3:43:00, Stop date: 08/13/15 3:43:00 Allergies, Adverse Reactions, Alerts Substance Category Reaction Severity Reaction Status Date Comments Source type Reported acetaminoph Assertion Drug Active itching The en<sup>1</s allergy [place] up> Immunizations Immunization Date Site Status Last Updated Comments Source Given pneumococcal Left completed [place] 13-valent 8 deltoid [facility], vaccine [place] influenza virus Right completed [place] vaccine, 8 deltoid [facility], inactivated [place] influenza virus Left completed [place] The vaccine, 6 deltoid [place], inactivated [facility] Results Order Name Results Value Reference Date Interpretation Comments Source Range Chest Chest 1view EXAM: XR CHEST 1 VIEW 07/25 - The 1view DX /2017 - [place] DATE: 07/25/2018 12:13 AM CDT Read by: Law Shearer MD Dictated Date/time: 07/25/18 00:38 Electronically Signed by: Law Shearer MD 07/25/18 00:38 FINAL REPORT INDICATION: Chest pain. COMPARISON: 12/23/2017 TECHNIQUE: Frontal radiograph of the chest was obtained. FINDINGS: No focal consolidation or pneumothorax is identified. The cardiomediastinal silhouette is within normal limits. The costophrenic recesses are sharp and without effusion. No acute osseous abnormality is noted. IMPRESSION: No acute cardiopulmonary abnormality. SL: [id number] CHEM PANEL B/C Ratio 13 6 - 25 05/11 [place] CHEM PANEL Globulin 4.1 g/dL 2.7 - 4.2 05/11 [place] CHEM PANEL A/G Ratio 0.9 0.7 - 1.6 05/11 [place] CHEM PANEL AGAP 13.4 meq/L 10.0 - 05/11 [facility] The 20.0 [place] CHEM PANEL eGFR 115 05/11 Result Comment: The eGFR is calculated using the CKD-EPI formula. In most young, healthy individuals the eGFR will be >90 mL/ min/1.73m2. The eGFR declines with age. An eGFR of 60-89 may be normal in The mL/min/1.7 /2017 some populations, particularly the elderly, for whom the CKD-EPI formula has not been extensively validated. Use of the eGFR is not recommended in the following populations: [place] 3m2 Individuals with unstable creatinine concentrations, including patients and those with serious co-morbid conditions. Patients with extremes in muscle mass or diet. The data above are obtained from the National Kidney Disease Education Program (NKDEP) which additionally recommends that when the eGFR is used in patients with extremes of body mass index for purposes of drug dosing, the eGFR should be multiplied by the estimated BMI. CHEM PANEL AST 36 unit/L 0 - 37 05/11 [place] CHEM PANEL Alk Phos 104 unit/L 39 - 136 05/11 [place] CHEM PANEL Bili Total 0.3 mg/dL 0.2 - 1.3 05/11 [place] CHEM PANEL Calcium Lvl 8.9 mg/dL 8.5 - 10.5 05/11 [place] CHEM PANEL Total 7.8 g/dL 6.4 - 8.4 05/11 The Protein [place] CHEM PANEL Albumin Lvl 3.7 g/dL 3.5 - 5.0 05/11 The [place] CHEM PANEL ALT 68 unit/L 0 - 65 05/11 The [place] CHEM PANEL CO2 26 meq/L 24 - 32 05/11 The [place] CHEM PANEL Chloride Lvl 102 meq/L 95 - 109 05/11 The [place] CHEM PANEL BUN 10 mg/dL 7 - 22 05/11 The [place] CHEM PANEL Potassium 3.4 meq/L 3.5 - 5.1 05/11 The Lvl /2017 [place] CHEM PANEL Sodium Lvl 138 meq/L 135 - 145 05/11 The [place] CHEM PANEL Creatinine 0.75 mg/dL 0.50 - 05/11 The Lvl 1.40 [place] CHEM PANEL Glucose Lvl 78 mg/dL 70 - 99 05/11 The [place] CHEM PANEL Lipase Lvl 161 unit/L 73 - 393 05/11 The [place] ENDOCRINOL S Preg Negative Negative 05/11 The OGY [place] *NA* (05/11/18 5:03 PM) HEMATOLOGY MPV 6.6 fL 7.4 - 10.4 05/11 The [place] HEMATOLOGY Platelet 313 K/CMM 133 - 450 05/11 The [place] HEMATOLOGY MCH 23.8 pg 27.0 - 05/11 The 31.0 [place] HEMATOLOGY RDW 16.7 % 11.5 - 05/11 The 14.5 [place] HEMATOLOGY MCHC 31.7 g/dL 32.0 - 05/11 The 36.0 [place] HEMATOLOGY WBC 11.0 K/CMM 3.7 - 10.4 05/11 The [place] HEMATOLOGY MCV 75.2 fL 80.0 - 05/11 The 98.0 [place] HEMATOLOGY Hct 31.2 % 36.0 - 05/11 The 48.0 [place] HEMATOLOGY RBC 4.15 M/CMM 4.20 - 05/11 The 5.40 [place] HEMATOLOGY Hgb 9.9 g/dL 12.0 - 05/11 The 16.0 [place] HEMATOLOGY Monocytes 6.4 % 2.0 - 12.0 05/11 MH The [place] HEMATOLOGY Lymphocytes 10.8 % 20.0 - 05/11 MH The 40.0 [place] HEMATOLOGY Lymphocytes 1.2 K/CMM 1.0 - 5.5 05/11 MH The # [place] HEMATOLOGY Segs-Bands # 9.0 K/CMM 1.5 - 8.1 05/11 The [place] HEMATOLOGY Plt Morph Normal 05/11 MH The [place] (05/11/18 5:03 PM) HEMATOLOGY Segs 81.4 % 45.0 - 05/11 MH The 75.0 [place] HEMATOLOGY Basophils 0.5 % 0.0 - 1.0 05/11 The [place] HEMATOLOGY Eosinophils 0.9 % 0.0 - 4.0 05/11 MH The [place] HEMATOLOGY RBC Morph Normal 05/11 MH The [place] (05/11/18 5:03 PM) HEMATOLOGY Monocytes # 0.7 K/CMM 0.0 - 0.8 05/11 MH The [place] HEMATOLOGY Basophils # 0.1 K/CMM 0.0 - 0.2 05/11 MH The [place] HEMATOLOGY Eosinophils 0.1 K/CMM 0.0 - 0.5 05/11 MH The [place] RAPID Grp A Strep Negative Negative 05/11 The Scr [place] (05/11/18 5:03 PM) URINE AND UA [place] Yeast Many /HPF None Seen 05/11 The STOOL /HPF [place] URINE AND UA Sq Epi Many /LPF Few /LPF 05/11 The STOOL [place] URINE AND UA RBC null 0 - 2 05/11 The STOOL [place] URINE AND UA WBC 8 /HPF 0 - 5 05/11 The STOOL [place] URINE AND UA Hyal Cast 12 /LPF 0 - 2 05/11 The STOOL [place] URINE AND UA Mucus Moderate None Seen 05/11 The STOOL /LPF /LPF /2017 [place] URINE AND UA Bacteria Occasional None Seen 05/11 The STOOL /HPF /HPF [place] URINE AND UA Glucose Negative Negative 05/11 The STOOL [place] (05/11/18 5:03 PM) URINE AND UA pH 5.5 5.0 - 8.0 05/11 The STOOL [place] URINE AND UA Spec Grav >=1.030 <=1.030 05/11 The [place] *ABN* (05/11/18 5:03 PM) URINE AND UA Protein 30 mg/dL Negative 05/11 The STOOL mg/dL [place] URINE AND UA Leuk Est Trace Negative 05/11 The [place] *ABN* (05/11/18 5:03 PM) URINE AND UA Nitrite Positive Negative 05/11 The STOOL [place] *ABN* (05/11/18 5:03 PM) URINE AND UA 0.2 EU/dL 0.1 - 1.0 05/11 The STOOL Urobilinogen [place] URINE AND UA Blood Large Negative 05/11 The [place] *ABN* (05/11/18 5:03 PM) URINE AND UA Ketones Negative Negative 05/11 The [place] *NA* (05/11/18 5:03 PM) URINE AND UA Bili Negative Negative 05/11 The [place] *NA* (05/11/18 5:03 PM) URINE AND UA Turbidity Moderate Clear 05/11 The [place] *ABN* (05/11/18 5:03 PM) URINE AND UA Color Yellow Yellow 05/11 The STOOL [place] *NA* (05/11/18 5:03 PM) Culture: 10,000 - 50,000 CFU/mL Escherichia coli 05/11 The Urine /2017 [place] Sensitivity Pending 50,000 - 100,000 CFU/mL [place] URINE AND UA Color Yellow 03/16 [facility] URINE AND UA Protein Negative Negative 03/16 STOOL mg/dL mg/dL [facility] URINE AND UA Glucose Negative Negative 03/16 STOOL mg/dL mg/dL [facility] URINE AND UA Blood Large Negative 03/16 [facility] *ABN* (03/16/18 12:38 PM) URINE AND UA Nitrite Positive Negative 03/16 [facility] *ABN* (03/16/18 12:38 PM) URINE AND UA 2.0 mg/dL 0.1 - 1.0 03/16 STOOL Urobilinogen [facility] URINE AND UA pH 6.0 5.0 - 8.0 03/16 STOOL [facility] URINE AND UA Turbidity Moderate Clear 03/16 STOOL [facility] *ABN* (03/16/18 12:38 PM) URINE AND UA Spec Grav 1.017 <=1.030 03/16 STOOL [facility] URINE AND UA Mucus Few /LPF None Seen 03/16 STOOL /LPF [facility] URINE AND UA RBC 33 /HPF 0 - 2 03/16 STOOL [facility] URINE AND UA Bacteria Few /HPF None Seen 03/16 STOOL /HPF /2017 [facility] URINE AND UA Ketones Negative Negative 03/16 [facility] mg/dL mg/dL [facility] URINE AND UA Bili Negative Negative 03/16 STOOL [facility] *NA* (03/16/18 12:38 PM) URINE AND UA Leuk Est Large Negative 03/16 [facility] *ABN* (03/16/18 12:38 PM) URINE AND UA WBC 32 /HPF 0 - 5 03/16 [facility] URINE AND UA Sq Epi Many /LPF Few /LPF 03/16 STOOL [facility] CHEM PANEL AST 15 unit/L 0 - 37 03/16 [facility] CHEM PANEL Alk Phos 81 unit/L 39 - 136 03/16 [facility] CHEM PANEL Bili Total 0.3 mg/dL 0.2 - 1.3 03/16 [facility] CHEM PANEL A/G Ratio 0.8 0.7 - 1.6 03/16 [facility] CHEM PANEL Bili Direct null 0.0 - 0.3 03/16 [facility] CHEM PANEL ALT 21 unit/L 0 - 65 03/16 [facility] CHEM PANEL Bili Unable to 0.0 - 1.0 03/16 Indirect [facility] CHEM PANEL Globulin 4.3 g/dL 2.7 - 4.2 03/16 [facility] CHEM PANEL Albumin Lvl 3.3 g/dL 3.5 - 5.0 03/16 [facility] CHEM PANEL Total 7.6 g/dL 6.4 - 8.4 03/16 Protein [facility] ELECTROLYT AGAP 8.3 meq/L 10.0 - 03/16 ES 20.0 [facility] ELECTROLYT eGFR 140 03/16 Result Comment: The eGFR is calculated using the CKD-EPI formula. In most young, healthy individuals the eGFR will be >90 mL/ min/1.73m2. The eGFR declines with age. An eGFR of 60-89 may be normal in mL/min/1. some populations, particularly the elderly, for whom the CKD-EPI formula has not been extensively validated. Use of the eGFR is not recommended in the following populations: [facility] 3m2 Individuals with unstable creatinine concentrations, including patients and those with serious co-morbid conditions. Patients with extremes in muscle mass or diet. The data above are obtained from the National Kidney Disease Education Program (NKDEP) which additionally recommends that when the eGFR is used in patients with extremes of body mass index for purposes of drug dosing, the eGFR should be multiplied by the estimated BMI. ELECTROLYT Sodium Lvl 143 meq/L 135 - 145 03/16 [facility] ELECTROLYT Creatinine 0.50 mg/dL 0.50 - 03/16 Lvl 1.40 [facility] ELECTROLYT Glucose Lvl 96 mg/dL 70 - 99 03/16 [facility] ELECTROLYT BUN 10 mg/dL 7 - 22 03/16 [facility] ELECTROLYT Chloride Lvl 110 meq/L 95 - 109 03/16 [facility] ELECTROLYT Potassium 3.3 meq/L 3.5 - 5.1 03/16 ES Lvl [facility] ELECTROLYT Calcium Lvl 8.6 mg/dL 8.5 - 10.5 03/16 [facility] ELECTROLYT CO2 28 meq/L 24 - 32 03/16 [facility] ENDOCRINOL S Preg Negative Negative 03/16 OG [facility] *NA* (03/16/18 11:40 AM) HEMATOLOGY Monocytes # 0.6 K/CMM 0.0 - 0.8 03/16 [facility] HEMATOLOGY Basophils # 0.0 K/CMM 0.0 - 0.2 03/16 [facility] HEMATOLOGY Eosinophils 0.0 K/CMM 0.0 - 0.5 03/16 [facility] HEMATOLOGY Eosinophils 0.5 % 0.0 - 4.0 03/16 [facility] HEMATOLOGY Monocytes 7.3 % 2.0 - 12.0 03/16 [facility] HEMATOLOGY Segs-Bands # 5.7 K/CMM 1.5 - 8.1 03/16 [facility] Basophils 0.5 % 0.0 - 1.0 03/16 [facility] Segs 72.8 % 45.0 - 03/16 75.0 [facility] Lymphocytes 18.9 % 20.0 - 03/16 [facility] 40.0 [facility] Lymphocytes 1.5 K/CMM 1.0 - 5.5 03/16 # /2017 [facility] Hgb 9.4 g/dL 12.0 - 03/16 [facility] 16.0 [facility] RBC 3.59 M/CMM 4.20 - 03/16 5.40 /2017 [facility] WBC 7.9 K/CMM 3.7 - 10.4 03/16 [facility] MCHC 31.8 g/dL 32.0 - 03/16 36.0 [facility] MCH 26.1 pg 27.0 - 03/16 31.0 [facility] Platelet 440 K/CMM 133 - 450 03/16 [facility] RDW 17.1 % 11.5 - 03/16 14.5 [facility] MPV 7.1 fL 7.4 - 10.4 03/16 [facility] Hct 29.4 % 36.0 - 03/16 48.0 [facility] MCV 82.0 fL 80.0 - 03/16 98.0 [facility] Renal Renal Stone CT SCAN OF THE ABDOMEN [<AND PELVIS>] WITHOUT CONTRAST. 03/16 - Stone CT CT /2017 - [facility] HX: Clinical Indication: - right flank pain, h/o kidney stones and pyelo; . Comparison: CT abdomen pelvis of 08/21/2016. Read by: Jose Daniel Morales MD Dictated Date/time: 03/16/18 13:05 Electronically Signed by: Jose Daniel Morales MD 03/16/18 13:09 FINAL REPORT Technique: Helical CT images were obtained from the domes the diaphragms to the symphysis pubis without the administration of oral or intravenous contrast. The lack of IV contrast lowers the sensitivity for diagnostic evaluation. ABDOMEN AND PELVIS: The lung bases are clear. The heart is stable in size. Probable anemia. Grossly normal gallbladder. The unenhanced liver, spleen , pancreas, and adrenals are stable in appearance. Grossly normal appendix. Punctate interpolar right renal calculus is present. No other renal or ureteral calculi or hydronephrosis. No significant perinephric stranding detected. Abundance of stool within the colon. The bladder is nondistended. Small amount of fluid is present within the pelvis. Stable heterogeneous uterus. Nonspecific fatty infiltration and ill-defined attenuation within the pelvis incompletely evaluated may represent infectious or inflammatory process. IMPRESSION: 1. No definite obstructive uropathy. Punctate interpolar right renal calculus. 2. Stable heterogeneous uterus. Nonspecific fatty infiltration and ill- defined attenuation within the pelvis incompletely evaluated may represent infectious or inflammatory process. Please correlate cli nically and further workup recommended. Repeat CT abdomen pelvis with IV and p.o. contrast may be of benefit and can be performed if clinically warranted. SL: [id number] URINE AND UA Color Yellow 03/09 STOOL [facility] URINE AND UA Sq Epi Many /LPF Few /LPF 03/09 STOOL [facility] URINE AND UA WBC 53 /HPF 0 - 5 03/09 STOOL [facility] URINE AND UA Bacteria Occasional None Seen 03/09 STOOL /HPF /HPF /2017 [facility] URINE AND UA Mucus Few /LPF None Seen 03/09 STOOL /LPF /2017 [facility] URINE AND UA 2.0 mg/dL 0.1 - 1.0 03/09 [facility] Urobilinogen /2017 [facility] URINE AND UA Nitrite Negative Negative 03/09 STOOL [facility] (03/09/18 11:29 AM) URINE AND UA Blood Large Negative 03/09 STOOL [facility] *ABN* (03/09/18 11:29 AM) URINE AND UA Bili Negative Negative 03/09 STOOL [facility] *NA* (03/09/18 11:29 AM) URINE AND UA Glucose Negative Negative 03/09 STOOL mg/dL mg/dL [facility] URINE AND UA Ketones Negative Negative 03/09 [facility] mg/dL mg/dL [facility] URINE AND UA RBC null 0 - 2 03/09 STOOL [facility] URINE AND UA Leuk Est Moderate Negative 03/09 STOOL [facility] *ABN* (03/09/18 11:29 AM) URINE AND UA pH 5.0 5.0 - 8.0 03/09 STOOL [facility] URINE AND UA Protein 30 mg/dL Negative 03/09 STOOL mg/dL [facility] URINE AND UA Spec Grav 1.020 <=1.030 03/09 STOOL [facility] URINE AND UA Turbidity Slight Clear 03/09 STOOL [facility] *ABN* (03/09/18 11:29 AM) URINE CHEM U Preg Negative Negative 03/09 [facility] (03/09/18 11:29 AM) CHEM PANEL Lactic Acid 0.7 mMol/L 0.5 - 2.2 01/11 The L[facility] [place] CHEM PANEL eGFR 131 01/11 Result Comment: The eGFR is calculated using the CKD-EPI formula. In most young, healthy individuals the eGFR will be >90 mL/ min/1.73m2. The eGFR declines with age. An eGFR of 60-89 may be normal in The mL/min/1.7 some populations, particularly the elderly, for whom the CKD-EPI formula has not been extensively validated. Use of the eGFR is not recommended in the following populations: [address] Individuals with unstable creatinine concentrations, including patients and those with serious co-morbid conditions. Patients with extremes in muscle mass or diet. The data above are obtained from the National Kidney Disease Education Program (NKDEP) which additionally recommends that when the eGFR is used in patients with extremes of body mass index for purposes of drug dosing, the eGFR should be multiplied by the estimated BMI. CHEM PANEL BUN 9 mg/dL 7 - 01/11 [place] CHEM PANEL Creatinine 0.61 mg/dL 0.50 - 02 MH The Lvl 1.40 [place] CHEM PANEL Glucose Lvl 100 mg/dL 70 - 99 01/11 [place] CHEM PANEL Alk Phos 70 unit/L 39 - 136 01/11 [place] CHEM PANEL Albumin Lvl 4.2 g/dL 3.5 - 5.0 01/11 [place] CHEM PANEL ALT 33 unit/L 0 - 65 01/11 [place] CHEM PANEL Bili Total 0.5 mg/dL 0.2 - 1.3 01/11 [place] CHEM PANEL AST 22 unit/L 0 - 37 01/11 [place] CHEM PANEL Sodium Lvl 140 meq/L 135 - 145 01/11 [place] CHEM PANEL Total 7.4 g/dL 6.4 - 8.4 01/11 MH The Protein [place] CHEM PANEL Calcium Lvl 8.8 mg/dL 8.5 - 10.5 01/11 MH The [place] CHEM PANEL Potassium 3.4 meq/L 3.5 - 5.1 01/11 MH The Lvl [place] CHEM PANEL Chloride Lvl 107 meq/L 95 - 109 01/11 MH The [place] CHEM PANEL CO2 27 meq/L 24 - 32 01/11 MH The [place] CHEM PANEL AGAP 9.4 meq/L 10.0 - 01/11 MH The 20.0 [place] CHEM PANEL Globulin 3.2 g/dL 2.7 - 4.2 01/11 MH The [place] CHEM PANEL A/G Ratio 1.3 0.7 - 1.6 01/11 MH The [place] CHEM PANEL B/C Ratio 15 6 - 25 01/11 MH The [place] ENDOCRINOL S Preg Negative Negative 01/11 MH The OGY [place] *NA* (01/11/18 2:14 AM) HEMATOLOGY Eosinophils 0.1 K/CMM 0.0 - 0.5 01/11 MH The # [place] HEMATOLOGY Monocytes # 0.4 K/CMM 0.0 - 0.8 01/11 MH The [place] HEMATOLOGY Lymphocytes 1.8 K/CMM 1.0 - 5.5 01/11 MH The [place] HEMATOLOGY Segs-Bands # 2.5 K/CMM 1.5 - 8.1 01/11 MH The [place] HEMATOLOGY Basophils 0.9 % 0.0 - 1.0 01/11 MH The [place] HEMATOLOGY Eosinophils 1.1 % 0.0 - 4.0 01/11 MH The [place] HEMATOLOGY Monocytes 8.2 % 2.0 - 12.0 01/11 MH The [place] HEMATOLOGY Lymphocytes 36.5 % 20.0 - 01/11 MH The 40.0 [place] HEMATOLOGY Segs 53.3 % 45.0 - 01/11 MH The 75.0 [place] HEMATOLOGY MCV 80.1 fL 80.0 - 01/11 MH The 98.0 [place] HEMATOLOGY Hgb 11.1 g/dL 12.0 - 01/11 MH The 16.0 [place] HEMATOLOGY Hct 33.2 % 36.0 - 01/11 MH The 48.0 /2017 [place] HEMATOLOGY Platelet 290 K/CMM 133 - 450 02 MH The [place] HEMATOLOGY RBC 4.15 M/CMM 4.20 - 01/11 MH The 5.40 /2017 [place] HEMATOLOGY WBC 4.8 K/CMM 3.7 - 10.4 01/11 MH The [place] HEMATOLOGY MPV 7.5 fL 7.4 - 10.4 01/11 MH The [place] HEMATOLOGY MCH 26.7 pg 27.0 - 01/11 MH The 31.0 /2017 [place] HEMATOLOGY RDW 17.0 % 11.5 - 01/11 MH The 14.5 [place] HEMATOLOGY MCHC 33.3 g/dL 32.0 - 01/11 MH The 36.0 [place] URINE AND UA Hyal Cast 32 /LPF 0 - 2 01/11 MH The STOOL [place] URINE AND UA Bacteria Occasional None Seen 01/11 MH The STOOL /HPF /HPF /2017 [place] URINE AND UA RBC 106 /HPF 0 - 2 01/11 MH The STOOL /2017 [place] URINE AND UA Sq Epi Many /LPF Few /LPF 01/11 The STOOL [place] URINE AND UA Leuk Est Large Negative 01/11 The STOOL [place] *ABN* (01/11/18 2:14 AM) URINE AND UA Turbidity Slight Clear 01/11 The STOOL [facility] *ABN* (01/11/18 2:14 AM) URINE AND UA Color Red Yellow 01/11 The STOOL [place] *ABN* (01/11/18 2:14 AM) URINE AND UA WBC 24 /HPF 0 - 5 01/11 The STOOL [place] URINE AND UA Mucus Many /LPF None Seen 01/11 The STOOL /LPF /2017[facility] URINE AND UA Nitrite Negative Negative 01/11 The STOOL [place] (01/11/18 2:14 AM) URINE AND UA 3.0 mg/dL 0.1 - 1.0 01/11 MH The STOOL Urobilinogen /2017 [place] URINE AND UA Protein 100 mg/dL Negative 01/11 MH The STOOL mg/dL [place] URINE AND UA pH 7.0 5.0 - 8.0 01/11 The STOOL [place] URINE AND UA Spec Grav 1.016 <=1.030 01/11 The STOOL [facility] URINE AND UA Bili Negative Negative 01/11 The STOOL [place] *NA* (01/11/18 2:14 AM) URINE AND UA Ketones Trace Negative 01/11 The STOOL mg/dL mg/dL /2017[facility] URINE AND UA Glucose Negative Negative 01/11 The STOOL mg/dL mg/dL /2017[facility] URINE AND UA Blood Moderate Negative 01/11 The STOOL [facility] *ABN* (01/11/18 2:14 AM) Retroperit Retroperiton Patient Name: CELESTINE CAR 01/11 - [facility] - [place] Complete US : 1995; Age: 22 years y/o Female US MR: [id number] Read by: Elizabeth Glynn Dictated Date/time: 01/11/18 03:34 Electronically Signed by: Elizabeth Glynn 01/11/18 03:35 FINAL REPORT Study: Retroperitoneal Complete US 01/11/2018 2:12 AM [employer] Ordering Physician: Amanda Bowling Clinical Indication: - rt flank pain; Comparison: 12/23/2017 TECHNIQUE: Multiple longitudinal and transverse real time sonographic images of the kidneys and urinary bladder are obtained. FINDINGS: KIDNEY: The right kidney measures 11.3 x 4.6 x 5.9 cm. The left kidney measures 12.8 x 4.3 x 5.6 cm. The kidneys are normal in size, shape, contour, and position. The cortices are normal in thickness and the corticomedullary differentiation is maintained. There is no hydronephrosis, nephrolithiasis, or abnormal perinephric collections. BLADDER: Scanning through the pelvis reveals the bladder to be partially distended with anechoic urine. AORTA AND IVC: The visualized portions appear unremarkable. ASCITES: No ascites noted. IMPRESSION: 1. Unremarkable sonographic assessment of the kidneys. MELODIE: TOBY CHEM PANEL eGFR 137 12/25 Result Comment: The eGFR is calculated using the CKD-EPI formula. In most young, healthy individuals the eGFR will be >90 mL/ min/1.73m2. The eGFR declines with age. An eGFR of 60-89 may be normal in The mL/min/1.7 some populations, particularly the elderly, for whom the CKD-EPI formula has not been extensively validated. Use of the eGFR is not recommended in the following populations: [place] 3m2 Individuals with unstable creatinine concentrations, including patients and those with serious co-morbid conditions. Patients with extremes in muscle mass or diet. The data above are obtained from the National Kidney Disease Education Program (NKDEP) which additionally recommends that when the eGFR is used in patients with extremes of body mass index for purposes of drug dosing, the eGFR should be multiplied by the estimated BMI. CHEM PANEL Calcium Lvl 7.8 mg/dL 8.5 - 10.5 12/25 The [place] CHEM PANEL Potassium 3.6 meq/L 3.5 - 5.1 12/25 The [place] CHEM PANEL Sodium Lvl 145 meq/L 135 - 145 12/25 The [place] CHEM PANEL CO2 27 meq/L 24 - 32 12/25 The [place] CHEM PANEL Chloride Lvl 112 meq/L 95 - 109 12/25 The [place] CHEM PANEL Glucose Lvl 101 mg/dL 70 - 99 12/25 The [place] CHEM PANEL BUN 3 mg/dL 7 - 22 12/25 The [place] CHEM PANEL Creatinine 0.53 mg/dL 0.50 - 12/25 MH The Lvl 1.40 [place] CHEM PANEL AGAP 9.6 meq/L 10.0 - 12/25 MH The . [place] CHEM PANEL Magnesium 1.6 mg/dL 1.8 - 2.4 12/25 The Lvl [place] HEMATOLOGY Eosinophils 0.1 K/CMM 0.0 - 0.5 12/25 MH The [place] HEMATOLOGY Monocytes # 0.3 K/CMM 0.0 - 0.8 12/25 The [place] HEMATOLOGY Basophils 0.5 % 0.0 - 1.0 12/25 The [place] HEMATOLOGY Lymphocytes 2.3 K/CMM 1.0 - 5.5 12/25 The [place] HEMATOLOGY Segs-Bands # 1.6 K/CMM 1.5 - 8.1 12/25 The [place] HEMATOLOGY Lymphocytes 53.3 % 20.0 - 02 The 40.0 [place] HEMATOLOGY Eosinophils 1.9 % 0.0 - 4.0 12/25 [place] HEMATOLOGY Monocytes 6.5 % 2.0 - 12.0 12/25 [place] HEMATOLOGY Segs 37.8 % 45.0 - 12/25 The 75.0 [place] HEMATOLOGY MPV 8.2 fL 7.4 - 10.4 12/25 [place] HEMATOLOGY RDW 15.6 % 11.5 - 12/25 The 14.5 [place] HEMATOLOGY Platelet 213 K/CMM 133 - 450 12/25 The [place] HEMATOLOGY MCHC 34.0 g/dL 32.0 - 12/25 The 36.0 [place] HEMATOLOGY MCV 79.4 fL 80.0 - 12/25 The 98.0 [place] HEMATOLOGY MCH 27.0 pg 27.0 - 12/25 The 31.0 [place] HEMATOLOGY WBC 4.3 K/CMM 3.7 - 10.4 12/25 [place] HEMATOLOGY Hct 29.5 % 36.0 - 12/25 The 48.0 [place] HEMATOLOGY RBC 3.71 M/CMM 4.20 - 12/25 The 5.40 [place] HEMATOLOGY Hgb 10.0 g/dL 12.0 - 12/25 The 16.0 [place] CHEM PANEL eGFR 139 12/24 Result Comment: The eGFR is calculated using the CKD-EPI formula. In most young, healthy individuals the eGFR will be >90 mL/ min/1.73m2. The eGFR declines with age. An eGFR of 60-89 may be normal in The mL/min/1.7 /2018 some populations, particularly the elderly, for whom the CKD-EPI formula has not been extensively validated. Use of the eGFR is not recommended in the following populations: [place] 3m2 Individuals with unstable creatinine concentrations, including patients and those with serious co-morbid conditions. Patients with extremes in muscle mass or diet. The data above are obtained from the National Kidney Disease Education Program (NKDEP) which additionally recommends that when the eGFR is used in patients with extremes of body mass index for purposes of drug dosing, the eGFR should be multiplied by the estimated BMI. CHEM PANEL ALT 39 unit/L 0 - 65 12/24 [place] CHEM PANEL Alk Phos 66 unit/L 39 - 136 12/24 The [place] CHEM PANEL Bili Total 0.4 mg/dL 0.2 - 1.3 12/24 The [place] CHEM PANEL AST 27 unit/L 0 - 37 12/24 The [place] CHEM PANEL BUN 10 mg/dL 7 - 22 12/24 The [place] CHEM PANEL Creatinine 0.51 mg/dL 0.50 - 02/ The Lvl 1.40 [place] CHEM PANEL Glucose Lvl 97 mg/dL 70 - 99 02 The [place] CHEM PANEL Sodium Lvl 143 meq/L 135 - 145 02/ The [place] CHEM PANEL Calcium Lvl 8.0 mg/dL 8.5 - 10.5 12/24 The [place] CHEM PANEL Chloride Lvl 112 meq/L 95 - 109 12/24 The [place] CHEM PANEL CO2 24 meq/L 24 - 32 02 The [place] CHEM PANEL Potassium 3.6 meq/L 3.5 - 5.1 12/24 The Lvl [place] CHEM PANEL AGAP 10.6 meq/L 10.0 - 02/ The 20.0 [place] CHEM PANEL A/G Ratio 1.1 0.7 - 1.6 / The [place] CHEM PANEL Total 5.6 g/dL 6.4 - 8.4 02 The Protein [place] CHEM PANEL Albumin Lvl 2.9 g/dL 3.5 - 5.0 02/ The [place] CHEM PANEL B/C Ratio 20 6 - 25 02/ The [place] CHEM PANEL Globulin 2.7 g/dL 2.7 - 4.2 02/ The [place] CHEM PANEL Magnesium 1.8 mg/dL 1.8 - 2.4 02/ The Lvl [place] CHEM PANEL Phosphorus 3.6 mg/dL 2.5 - 4.5 02/ The [place] HEMATOLOGY Eosinophils 0.1 K/CMM 0.0 - 0.5 02/ The # [place] HEMATOLOGY Monocytes # 0.4 K/CMM 0.0 - 0.8 02/ The [place] HEMATOLOGY Lymphocytes 2.4 K/CMM 1.0 - 5.5 02/ The # /2017 [place] HEMATOLOGY Segs 39.7 % 45.0 - 02 The 75.0 [place] HEMATOLOGY Basophils 0.6 % 0.0 - 1.0 12/24 The [place] HEMATOLOGY Segs-Bands # 1.8 K/CMM 1.5 - 8.1 12/24 The [place] HEMATOLOGY Monocytes 7.5 % 2.0 - 12.0 12/24 The [place] HEMATOLOGY Eosinophils 1.6 % 0.0 - 4.0 12/24 The [place] HEMATOLOGY Lymphocytes 50.6 % 20.0 - 12/24 The 40.0 [place] HEMATOLOGY MCH 27.0 pg 27.0 - 12/24 The 31.0 [place] HEMATOLOGY RDW 15.7 % 11.5 - 12/24 The 14.5 [place] HEMATOLOGY MCHC 33.8 g/dL 32.0 - 12/24 The 36.0 [place] HEMATOLOGY Platelet 218 K/CMM 133 - 450 12/24 The [place] HEMATOLOGY WBC 4.7 K/CMM 3.7 - 10.4 12/24 The [place] HEMATOLOGY MCV 79.8 fL 80.0 - 12/24 The 98.0 [place] HEMATOLOGY Hct 31.1 % 36.0 - 12/24 The 48.0 [place] HEMATOLOGY Hgb 10.5 g/dL 12.0 - 12/24 The 16.0 [place] HEMATOLOGY RBC 3.90 M/CMM 4.20 - 12/24 The 5.40 [place] HEMATOLOGY MPV 8.4 fL 7.4 - 10.4 12/24 The [place] MOLECULAR Influenza A Negative Negative 12/24 The DIAGNOSTIC PCR /2017 [place] (12/23/17 6:10 PM) MOLECULAR Influenza B Negative Negative 12/24 The DIAGNOSTIC PCR [place] (12/23/17 6:10 PM) MOLECULAR Source [employer] Swab 12/24 The DIAGNOSTIC Respiratory /2017 [place] Panel PCR (12/23/17 6:10 PM) MOLECULAR RSV PCR Negative Negative 02/06 MH The DIAGNOSTIC /2017 [place] (12/23/17 6:10 PM) URINE AND UA <=1.0 0.1 - 1.0 12/23 The STOOL Urobilinogen mg/dL [place] URINE AND UA Mucus Few /LPF None Seen 12/23 The STOOL /LPF /2017[place] URINE AND UA Bacteria Few /HPF None Seen 12/23 The STOOL /HPF [facility] URINE AND UA Ketones Negative Negative 12/23 The STOOL mg/dL mg/dL [place] URINE AND UA Bili Negative Negative 12/23 The STOOL [facility] *NA* (12/23/17 2:25 PM) URINE AND UA Glucose Negative Negative 12/23 The STOOL mg/dL mg/dL [facility] URINE AND UA RBC null 0 - 2 12/23 The STOOL [facility] URINE AND UA WBC null 0 - 5 12/23 The [facility] URINE AND UA Leuk Est Large Negative 12/23 The lands *ABN* (12/23/17 2:25 PM) URINE AND UA Sq Epi Moderate Few /LPF 12/23 The STOOL /LPF [facility] URINE AND UA Nitrite Negative Negative 12/23 The STOOL [facility] (12/23/17 2:25 PM) URINE AND UA Blood Large Negative 12/23 The [facility] *ABN* (12/23/17 2:25 PM) URINE AND UA pH 6.5 5.0 - 8.0 12/23 The STOOL [facility] URINE AND UA Protein 50 mg/dL Negative 12/23 The STOOL mg/dL [facility] URINE AND UA Spec Grav 1.013 <=1.030 12/23 The [facility]OOL [place] URINE AND UA Turbidity Slight Clear 12/23 The [facility]OOL [facility] *ABN* (12/23/17 2:25 PM) URINE AND UA Color Yellow Yellow 12/23 The STOOL [facility] *NA* (12/23/17 2:25 PM) CHEM PANEL Lactic Acid 2.1 mMol/L 0.5 - 2.2 12/23 The Lvl [place] CHEM PANEL Lipase Lvl 134 unit/L 73 - 393 12/23 The [place] CHEM PANEL eGFR 112 12/23 Result Comment: The eGFR is calculated using the CKD-EPI formula. In most young, healthy individuals the eGFR will be >90 mL/ min/1.73m2. The eGFR declines with age. An eGFR of 60-89 may be normal in The mL/min/1.7 some populations, particularly the elderly, for whom the CKD-EPI formula has not been extensively validated. Use of the eGFR is not recommended in the following populations: [place] [address] Individuals with unstable creatinine concentrations, including patients and those with serious co-morbid conditions. Patients with extremes in muscle mass or diet. The data above are obtained from the National Kidney Disease Education Program (NKDEP) which additionally recommends that when the eGFR is used in patients with extremes of body mass index for purposes of drug dosing, the eGFR should be multiplied by the estimated BMI. CHEM PANEL Bili Total 0.8 mg/dL 0.2 - 1.3 12/23 The [place] CHEM PANEL Potassium 3.1 meq/L 3.5 - 5.1 12/23 The Lvl [place] CHEM PANEL Chloride Lvl 104 meq/L 95 - 109 12/23 The [place] CHEM PANEL CO2 27 meq/L 24 - 32 12/23 The [place] CHEM PANEL ALT 57 unit/L 0 - 65 12/23 The [place] CHEM PANEL Alk Phos 86 unit/L 39 - 136 12/23 The [place] CHEM PANEL AST 47 unit/L 0 - 37 12/23 The [place] CHEM PANEL Glucose Lvl 99 mg/dL 70 - 99 12/23 The [place] CHEM PANEL BUN 19 mg/dL 7 - 22 12/23 The [place] CHEM PANEL Calcium Lvl 9.0 mg/dL 8.5 - 10.5 12/23 The [place] CHEM PANEL Creatinine 0.77 mg/dL 0.50 - 02/ The Lvl 1.40 [place] CHEM PANEL Sodium Lvl 138 meq/L 135 - 145 02/ The [place] CHEM PANEL Total 7.9 g/dL 6.4 - 8.4 02/ The Protein [place] CHEM PANEL Albumin Lvl 4.3 g/dL 3.5 - 5.0 02/ The [place] CHEM PANEL A/G Ratio 1.2 0.7 - 1.6 02 The [place] CHEM PANEL AGAP 10.1 meq/L 10.0 - 02 The 20.0 [place] CHEM PANEL Globulin 3.6 g/dL 2.7 - 4.2 02 The [place] CHEM PANEL B/C Ratio 25 6 - 25 02 The [place] ENDOCRINOL S Preg Negative Negative 12/23 The OGY [place] *NA* (12/23/17 12:28 PM) HEMATOLOGY RDW 15.6 % 11.5 - 02 The 14.5 [place] HEMATOLOGY Hgb 12.7 g/dL 12.0 - 12/23 The 16.0 [place] HEMATOLOGY Platelet 330 K/CMM 133 - 450 02 The [place] HEMATOLOGY MPV 8.2 fL 7.4 - 10.4 12/23 The [place] HEMATOLOGY MCHC 34.0 g/dL 32.0 - 12/23 The 36.0 [place] HEMATOLOGY Hct 37.2 % 36.0 - 02 The 48.0 [place] HEMATOLOGY MCH 26.5 pg 27.0 - 02 The 31.0 [place] HEMATOLOGY MCV 78.0 fL 80.0 - 02 The 98.0 [place] HEMATOLOGY RBC 4.78 M/CMM 4.20 - 02 The 5.40 [place] HEMATOLOGY WBC 6.2 K/CMM 3.7 - 10.4 12/23 The [place] HEMATOLOGY Monocytes # 0.5 K/CMM 0.0 - 0.8 02 The [place] HEMATOLOGY Lymphocytes 1.6 K/CMM 1.0 - 5.5 02 The # [place] HEMATOLOGY Segs 65.5 % 45.0 - 02 The 75.0 [place] HEMATOLOGY Lymphocytes 25.5 % 20.0 - 0205 The 40.0 [place] HEMATOLOGY Monocytes 7.9 % 2.0 - 12.0 02/ The [place] HEMATOLOGY Eosinophils 0.7 % 0.0 - 4.0 02 The [place] HEMATOLOGY Segs-Bands # 4.0 K/CMM 1.5 - 8.1 12/23 [place] HEMATOLOGY Basophils 0.4 % 0.0 - 1.0 12/23 [place] Chest 2 Chest 2 Clinical Indication: Coughing - n/a 12/23 - The views DX views DX /2017 [facility] Comparison: 12/03/2016 Read by: Hunter Gandara MD Dictated Date/time: 12/23/17 18:53 FINDINGS: PA and lateral views the chest are submitted for interpretation. Electronically Signed by: Hunter Gandara MD 04/04 18:54 FINAL REPORT The lungs are clear and there are no effusions. There is no visible pneumothorax. The cardiomediastinal contours are within normal limits. There are no clinically significant osseous abnormalities noted. IMPRESSION: 1. No radiographic evidence of acute cardiopulmonary process. SL: [id number] Retroperit Retroperiton Clinical Indication: - evaluate for hydronephrosis and renal stones; 12/23 - [facility] US US Comparison: October 20, 2017 Read by: Juma Wheeler MD Dictated Date/time: 12/23/17 15:48 TECHNIQUE: Electronically Signed by: Juma Wheeler MD 12/23/17 15:49 FINAL REPORT Multiple longitudinal and transverse real time sonographic images of the kidneys and urinary bladder are obtained. FINDINGS: KIDNEY: The right kidney measures 11.0 x 4.7 x 5.8 cm. The left kidney measures 10.7 x 5.8 x 4.9 cm. The right renal cortex measures 1.6 cm in thickness. The left renal cortex measures 1.5 cm in thickness. The kidneys are normal in size, shape, contour, and position. The cortices are normal in thickness and the corticomedulluary differentiation is maintained. There is no hydronephrosis, nephrolithiasis, or abnormal perinephric collections. BLADDER: Scanning through the pelvis reveals the bladder to be partially distended with anechoic urine. ASCITES: No ascites noted. IMPRESSION: 1. Unremarkable renal U/S. No hydronephrosis is noted. SL: [id number] CHEM PANEL eGFR 90 10/21 Result Comment: The eGFR is calculated using the CKD-EPI formula. In most young, healthy individuals the eGFR will be >90 mL/ min/1.73m2. The eGFR declines with age. An eGFR of 60-89 may be normal in mL/min/1. some populations, particularly the elderly, for whom the CKD-EPI formula has not been extensively validated. Use of the eGFR is not recommended in the following populations: [facility] 3m2 Individuals with unstable creatinine concentrations, including patients and those with serious co-morbid conditions. Patients with extremes in muscle mass or diet. The data above are obtained from the National Kidney Disease Education Program (NKDEP) which additionally recommends that when the eGFR is used in patients with extremes of body mass index for purposes of drug dosing, the eGFR should be multiplied by the estimated BMI. CHEM PANEL Chloride Lvl 105 meq/L 95 - 109 10/21 [facility] CHEM PANEL Calcium Lvl 9.0 mg/dL 8.5 - 10.5 10/21 [facility] CHEM PANEL CO2 22 meq/L 24 - 32 10/21 [facility] CHEM PANEL Glucose Lvl 89 mg/dL 70 - 99 10/21 [facility] CHEM PANEL Sodium Lvl 138 meq/L 135 - 145 10/21 [facility] CHEM PANEL Potassium 3.6 meq/L 3.5 - 5.1 10/21 Lvl [facility] CHEM PANEL Creatinine 0.92 mg/dL 0.50 - 10/21 [facility] Lvl 1.40 [facility] CHEM PANEL BUN 8 mg/dL 7 - 22 10/21 [facility] CHEM PANEL AGAP 14.6 meq/L 10.0 - 10/21 20.0 [facility] ENDOCRINOL S Preg Negative Negative 10/21 [facility] *NA* (10/20/17 8:39 PM) HEMATOLOGY MPV 7.4 fL 7.4 - 10.4 10/21 [facility] HEMATOLOGY Platelet 330 K/CMM 133 - 450 10/21 [facility] HEMATOLOGY RDW 15.2 % 11.5 - 10/21 Greater 14. [facility] HEMATOLOGY MCHC 34.0 g/dL 32.0 - 12/ MH [facility] 36.0 [facility] HEMATOLOGY MCH 27.7 pg 27.0 - 10/21 [facility] 31.0 [facility] HEMATOLOGY MCV 81.3 fL 80.0 - 10/21 [facility] 98.0 /2017 [place] HEMATOLOGY WBC 10.5 K/CMM 3.7 - 10.4 12 MH [place] HEMATOLOGY RBC 4.87 M/CMM 4.20 - 10/21 [facility] 5.40 /2017 [place] [facility]EMAT[facility] Hgb 13.5 g/dL 12.0 - 10/21 [facility] 16.0 /2017 [place] HEMATOLOGY Hct 39.7 % 36.0 - 10/21 [facility] 48.0 /2016 [place] HEMATOLOGY Monocytes 6.2 % 2.0 - 12.0 10/21 [facility] [place] HEMATOLOGY Lymphocytes 25.7 % 20.0 - 10/21 [facility] 40.0 /2016 [place] HEMATOLOGY Segs 66.9 % 45.0 - 10/21 [facility] 75.0 /2016 [place] HEMATOLOGY Monocytes # 0.7 K/CMM 0.0 - 0.8 10/21 [facility] HEMATOLOGY Lymphocytes 2.7 K/CMM 1.0 - 5.5 10/21 [facility] # /2016 [place] HEMATOLOGY Segs-Bands # 7.0 K/CMM 1.5 - 8.1 10/21 HEMATOLOGY Eosinophils 0.1 K/CMM 0.0 - 0.5 10/21 [facility] # /2016 [place] [facility]EMAT[facility] Basophils 0.4 % 0.0 - 1.0 10/21 HEMATOLOGY Eosinophils 0.8 % 0.0 - 4.0 10/21 [facility] URINE AND UA Ketones Negative 10/21 URINE AND UA Mucus Many /LPF None Seen 10/21 [facility] STOOL /LPF URINE AND UA Bacteria Few /HPF None Seen 10/21 [facility] STOOL /HPF [place] URINE AND UA RBC 23 /HPF 0 - 2 10/21 [facility] [place] URINE AND UA WBC 126 /HPF 0 - 5 10/21 URINE AND UA Sq Epi Many /LPF Few /LPF 10/21 [facility] URINE AND UA Leuk Est Moderate Negative 10/21 [facility] *ABN* (10/20/17 8:39 PM) URINE AND UA Nitrite Negative Negative 10/21 [facility] (10/20/17 8:39 PM) URINE AND UA 4.0 mg/dL 0.1 - 1.0 12/04 [facility] STOOL Urobilinogen URINE AND UA Blood Moderate Negative 10/21 [facility] *ABN* (10/20/17 8:39 PM) URINE AND UA Bili Small Negative 10/21 *ABN* (10/20/17 8:39 PM) URINE AND UA Glucose Negative Negative 10/21 [facility] STOOL mg/dL mg/dL URINE AND UA Protein 100 mg/dL Negative 10/21 [facility] STOOL mg/dL URINE AND UA pH 5.0 5.0 - 8.0 10/21 URINE AND UA Spec Grav 1.019 <=1.030 10/21 [facility] STOOL URINE AND UA Turbidity Marked Clear 10/21 *ABN* (10/20/17 8:39 PM) URINE AND UA Color Alyssa Yellow 10/21 *ABN* (10/20/17 8:39 PM) Pelvis w Pelvis w Transabdominal transvaginal pelvic ultrasound. 10/20 - [facility] Pelvis Pelvis /2016 - [facility] Transvagin Transvaginal al US US Clinical Indication: - r/o retained products Read by: London Powell DO Dictated Date/time: 10/20/17 22:27 Comparison: 04/19/2017 Electronically Signed by: London Powell DO 10/20/17 22:47 FINAL REPORT US PELVIS Technique: Grayscale, color and Doppler transvaginal imaging of the pelvis was performed with standard technique. FINDINGS: UTERUS: The pelvic transvaginal sonographic images show normal anteverted uterine contour and morphology. 89 x 54 x 41 mm. There is normal parenchymal echotexture. The endometrial stripe measures 2 mm in thickness. Transvaginal images were performed to more probably characterize the endometrium and ovaries. OVARIES: The transvaginal pelvic sonographic images show that the right ovary measures 41 x 29 x 27 cm and the left ovary measures 36 x 25 x 21 cm. Multiple follicles are noted. There is normal ovarian contour and morphology. There are no adnexal masses. The limited Doppler images show normal bilateral ovarian blood flow. OTHER FINDINGS: The transvaginal sonographic images show no free fluid in the pelvic cul-de-sac. If there is further concern, followup pelvic sonography or MRI of the pelvis may be performed. IMPRESSION: Unremarkable uterus and ovaries. SL: [id number] CHEM PANEL Negative Negative 04/21 The [place] (04/21/17 1:39 AM) HEMATOLOGY Segs 54.3 % 45.0 - 06/ MH The 75.0 [place] HEMATOLOGY Lymphocytes 2.6 K/CMM 1.0 - 5.5 06/ The [place] HEMATOLOGY Monocytes # 0.5 K/CMM 0.0 - 0.8 06/ The [place] HEMATOLOGY Eosinophils 0.1 K/CMM 0.0 - 0.5 06 The [place] HEMATOLOGY Basophils # 0.1 K/CMM 0.0 - 0.2 / The [place] HEMATOLOGY Lymphocytes 36.8 % 20.0 - 04/21 The 40.0 [place] HEMATOLOGY Monocytes 7.3 % 2.0 - 12.0 / The [place] HEMATOLOGY Segs-Bands # 3.8 K/CMM 1.5 - 8.1 04/21 The [place] HEMATOLOGY Eosinophils 0.8 % 0.0 - 4.0 / The [place] HEMATOLOGY Basophils 0.8 % 0.0 - 1.0 / The [place] HEMATOLOGY MPV 7.8 fL 7.4 - 10.4 04/21 The [place] HEMATOLOGY MCV 89.2 fL 80.0 - 04/21 The 98.0 [place] HEMATOLOGY MCH 30.0 pg 27.0 - 04/21 The 31.0 [place] HEMATOLOGY MCHC 33.6 g/dL 32.0 - 04/21 The 36.0 [place] HEMATOLOGY RDW 13.5 % 11.5 - 04/21 The 14.5 [place] HEMATOLOGY Platelet 221 K/CMM 133 - 450 / [place] HEMATOLOGY WBC 6.9 K/CMM 3.7 - 10.4 / The [place] HEMATOLOGY RBC 3.39 M/CMM 4.20 - 04/21 The 5.40 [place] HEMATOLOGY Hgb 10.2 g/dL 12.0 - 04/21 The 16.0 [place] HEMATOLOGY Hct 30.2 % 36.0 - 04/21 The 48.0 [facility] URINE AND UA Mucus Few /LPF None Seen 04/21 The STOOL /LPF /2016[place] URINE AND UA Bacteria Occasional None Seen 04/21 The STOOL /HPF /HPF [facility] URINE AND UA WBC 56 /HPF 0 - 5 04/21 The [facility] URINE AND UA RBC null 0 - 2 04/21 The STOOL [facility] URINE AND UA Leuk Est Large Negative 04/21 The [facility] *ABN* (04/21/17 1:39 AM) URINE AND UA Sq Epi Many /LPF Few /LPF 04/21 The STOOL [facility] URINE AND UA Nitrite Negative Negative 04/21 The [facility] (04/21/17 1:39 AM) URINE AND UA <=1.0 0.1 - 1.0 04/21 The STOOL Urobilinogen mg/dL [place] URINE AND UA pH 7.5 5.0 - 8.0 04/21 The [facility] URINE AND UA Glucose Negative Negative 04/21 The STOOL mg/dL mg/dL [facility] URINE AND UA Protein 30 mg/dL Negative 04/21 The STOOL mg/dL [facility] URINE AND UA Bili Negative Negative 04/21 The [facility] *NA* (04/21/17 1:39 AM) URINE AND UA Ketones Negative Negative 04/21 The STOOL mg/dL mg/dL [place] URINE AND UA Spec Grav 1.010 <=1.030 04/21 The [facility] URINE AND UA Color Red Yellow 04/21 The [facility] *ABN* (04/21/17 1:39 AM) URINE AND UA Blood Large Negative 04/21 The [facility] *ABN* (04/21/17 1:39 AM) URINE AND UA Turbidity Slight Clear 04/21 The [facility] *ABN* (04/21/17 1:39 AM) CHEM PANEL Lipase Lvl 97 unit/L 73 - 393 04/19 [place] CHEM PANEL Uric Acid 3.8 mg/dL 2.5 - 7.0 04/19 [place] CHEM PANEL Amylase Lvl 31 unit/L 25 - 115 / [place] ELECTROLYT AGAP 10.8 meq/L 10.0 - 06 The ES 20.0 [place] ELECTROLYT B/C Ratio 10 6 - 25 04/19 The [place] ELECTROLYT Globulin 3.2 g/dL 2.7 - 4.2 04/19 The [place] ELECTROLYT A/G Ratio 0.9 0.7 - 1.6 04/19 The [place] ELECTROLYT eGFR 151 04/19 Result Comment: The eGFR is calculated using the CKD-EPI formula. In most young, healthy individuals the eGFR will be >90 mL/ min/1.73m2. The eGFR declines with age. An eGFR of 60-89 may be normal in The mL/min/1. some populations, particularly the elderly, for whom the CKD-EPI formula has not been extensively validated. Use of the eGFR is not recommended in the following populations: [place] 3m2 Individuals with unstable creatinine concentrations, including patients and those with serious co-morbid conditions. Patients with extremes in muscle mass or diet. The data above are obtained from the National Kidney Disease Education Program (NKDEP) which additionally recommends that when the eGFR is used in patients with extremes of body mass index for purposes of drug dosing, the eGFR should be multiplied by the estimated BMI. ELECTROLYT Alk Phos 78 unit/L 39 - 136 04/19 The [place] ELECTROLYT Bili Total 0.4 mg/dL 0.2 - 1.3 04/19 The [place] ELECTROLYT AST 13 unit/L 0 - 37 / The [place] ELECTROLYT ALT 13 unit/L 0 - 65 / The [place] ELECTROLYT Total 6.1 g/dL 6.4 - 8.4 / The ES Protein [place] ELECTROLYT Albumin Lvl 2.9 g/dL 3.5 - 5.0 / The [place] ELECTROLYT CO2 25 meq/L 24 - 32 / The [place] ELECTROLYT Calcium Lvl 8.3 mg/dL 8.5 - 10.5 04/19 The [place] ELECTROLYT Chloride Lvl 109 meq/L 95 - 109 / The [place] ELECTROLYT Potassium 3.8 meq/L 3.5 - 5.1 06/ The ES Lvl [place] ELECTROLYT Sodium Lvl 141 meq/L 135 - 145 04/19 The [place] ELECTROLYT Creatinine 0.40 mg/dL 0.50 - 04/19 The ES Lvl 1.40 [place] ELECTROLYT BUN 4 mg/dL 7 - 22 04/19 The [place] ELECTROLYT Glucose Lvl 80 mg/dL 70 - 99 04/19 The [place] HEMATOLOGY RDW 13.6 % 11.5 - 04/19 The 14. [place] HEMATOLOGY Platelet 199 K/CMM 133 - 450 04/19 The [place] HEMATOLOGY MCHC 34.1 g/dL 32.0 - 04/19 The 36.0 [place] HEMATOLOGY MCH 30.2 pg 27.0 - 04/19 The 31.0 [place] HEMATOLOGY MPV 7.6 fL 7.4 - 10.4 04/19 The [place] HEMATOLOGY MCV 88.6 fL 80.0 - 04/19 The 98.0 [place] HEMATOLOGY RBC 3.31 M/CMM 4.20 - 04/19 The 5.40 [place] HEMATOLOGY WBC 6.2 K/CMM 3.7 - 10.4 04/19 [place] HEMATOLOGY Hct 29.3 % 36.0 - 04/19 The 48.0 [place] HEMATOLOGY Hgb 10.0 g/dL 12.0 - 04/19 The 16.0 [place] HEMATOLOGY Eosinophils 0.6 % 0.0 - 4.0 / The [place] HEMATOLOGY Lymphocytes 1.9 K/CMM 1.0 - 5.5 / The # [place] HEMATOLOGY Monocytes 7.7 % 2.0 - 12.0 / The [place] HEMATOLOGY Basophils 0.5 % 0.0 - 1.0 / The [place] HEMATOLOGY Segs-Bands # 3.7 K/CMM 1.5 - 8.1 04/19 The [place] HEMATOLOGY Segs 60.6 % 45.0 - 04/19 The 75.0 /2016 [place] HEMATOLOGY Lymphocytes 30.6 % 20.0 - 04/19 The 40.0 [place] HEMATOLOGY Monocytes # 0.5 K/CMM 0.0 - 0.8 04/19 The [place] DRUG U Phencyc Negative Negative 04/19 The SCREEN Scr [place] *NA* (04/19/17 12:40 PM) DRUG UDS Note See Note 04/19 The [place] *NA* (04/19/17 12:40 PM) DRUG U Jeannie Scr Negative Negative 04/19 The [place] *NA* (04/19/17 12:40 PM) DRUG U Benzodia Negative Negative 04/19 The SCREEN [place] *NA* (04/19/17 12:40 PM) DRUG U Cocaine Negative Negative 04/19 The SCREEN Scr [place] *NA* (04/19/17 12:40 PM) DRUG U Cannab Scr Negative Negative 04/19 The [place] *NA* (04/19/17 12:40 PM) DRUG U Opiate Scr Negative Negative 04/19 The [place] *NA* (04/19/17 12:40 PM) DRUG U Amph Scr Negative Negative 04/19 The [place] *NA* (04/19/17 12:40 PM) MOLECULAR N gonorrhea Negative Negative 04/19 The DIAGNOSTIC by Amp Det /2016 [place] (APTIMA) *NA* (04/19/17 12:40 PM) MOLECULAR C Negative Negative 04/19 The DIAGNOSTIC trachomatis [place] by Amp Det *NA* (APTIMA) (04/19/17 12:40 PM) MOLECULAR Source Urine 04/19 The DIAGNOSTIC APTIMA /2016 [place] *NA* (04/19/17 12:40 PM) URINE AND UA <=1.0 0.1 - 1.0 04/19 The STOOL Urobilinogen mg/dL /2016 [place] URINE AND UA Amorph Occasional None Seen 04/19 The STOOL Lisa /HPF /HPF /2016 [place] URINE AND UA Bacteria Few /HPF None Seen 04/19 The STOOL /HPF /2016 [place] URINE AND UA RBC 4 /HPF 0 - 2 04/19 The STOOL /2016 [place] URINE AND UA Mucus Few /LPF None Seen 04/19 The STOOL /LPF /2016 [place] URINE AND UA WBC 21 /HPF 0 - 5 04/19 The [place] URINE AND UA Sq Epi Many /LPF Few /LPF 04/19 The [place] URINE AND UA Leuk Est Large Negative 04/19 The [place] *ABN* (04/19/17 12:40 PM) URINE AND UA Nitrite Negative Negative 04/19 The [place] (04/19/17 12:40 PM) URINE AND UA Blood Negative Negative 04/19 The [place] (04/19/17 12:40 PM) URINE AND UA Ketones Trace Negative 04/19 The STOOL mg/dL mg/dL [place] URINE AND UA Bili Negative Negative 04/19 The [place] *NA* (04/19/17 12:40 PM) URINE AND UA pH 7.0 5.0 - 8.0 04/19 The [place] URINE AND UA Protein 20 mg/dL Negative 04/19 The STOOL mg/dL [place] URINE AND UA Spec Grav 1.013 <=1.030 04/19 The [place] URINE AND UA Turbidity Marked Clear 04/19 The [place] *ABN* (04/19/17 12:40 PM) URINE AND UA Glucose Negative Negative 04/19 The STOOL mg/dL mg/dL [place] URINE AND UA Color Yellow Yellow 04/19 The [place] *NA* (04/19/17 12:40 PM) Abdomen Abdomen Clinical Indication: - abdominal pain 30 weeks look for Gallbladder or other abdominal source for pain 04/19 - The complete complete US /2016 - [place] US Comparison: 03/30/2017 Read by: Sonny Robert MD Dictated Date/time: 04/19/17 14:09 TECHNIQUE: Electronically Signed by: Sonny Robert MD 04/19/17 14:10 FINAL REPORT Grayscale and limited color sonographic evaluation of the abdomen was performed with standard technique. FINDINGS: Liver demonstrates normal contour and echotexture. No solid hepatic masses. No intrahepatic biliary ductal dilatation. Gallbladder appears normal without stones or wall thickening. No pericholecystic fluid. Common bile duct is normal measuring 3 mm. Right kidney measures 12.5 cm in length. Left kidney measures 12.4 cm in length. No solid renal masses. No hydronephrosis. No echogenic intrarenal foci to suggest calculi. Spleen measures 16.2 cm in length. The visualized portions of the pancreas are unremarkable. The visualized abdominal aorta is normal in caliber. The IVC is patent. IMPRESSION: 1. Normal gallbladder without gallstones. 2. Splenomegaly. SL: [id number] Clinical Indication: - abdominal pain at 30 weeks 4 days gestation 04/19 - The complete complete US /2016 - [place] US Comparison: 03/30/2017 Read by: Janel Loyd DO Dictated Date/time: 04/19/17 14:49 IMPRESSION: Electronically Signed by: Janel Loyd DO 04/19/17 14:53 FINAL REPORT Please see the computer generated obstetrical report for this examination. This study was read, and the report is in the EMR, under ultrasound. SL: [id number] CHEM PANEL eGFR 153 04/07 Result Comment: The eGFR is calculated using the CKD-EPI formula. In most young, healthy individuals the eGFR will be >90 mL/ min/1.73m2. The eGFR declines with age. An eGFR of 60-89 may be normal in The mL/min/1. some populations, particularly the elderly, for whom the CKD-EPI formula has not been extensively validated. Use of the eGFR is not recommended in the following populations: [place] 3m2 Individuals with unstable creatinine concentrations, including patients and those with serious co-morbid conditions. Patients with extremes in muscle mass or diet. The data above are obtained from the National Kidney Disease Education Program (NKDEP) which additionally recommends that when the eGFR is used in patients with extremes of body mass index for purposes of drug dosing, the eGFR should be multiplied by the estimated BMI. CHEM PANEL Calcium Lvl 8.3 mg/dL 8.5 - 10.5 04/07 [place] CHEM PANEL CO2 25 meq/L 24 - 32 04/07 [place] CHEM PANEL Chloride Lvl 108 meq/L 95 - 109 04/07 [place] CHEM PANEL Potassium 4.0 meq/L 3.5 - 5.1 04/07 The Lvl [place] CHEM PANEL Sodium Lvl 138 meq/L 135 - 145 04/07 The [place] CHEM PANEL AGAP 9.0 meq/L 10.0 - 04/07 The [place] CHEM PANEL Creatinine 0.38 mg/dL 0.50 - 04/07 The Lvl 1.40 [place] CHEM PANEL BUN 2 mg/dL 7 - 22 04/07 The [place] CHEM PANEL Glucose Lvl 77 mg/dL 70 - 99 04/07 The [place] BLOOD BANK Antibody Negative 04/05 The RESULTS Scrn [place] (04/05/17 5:29 AM) BLOOD BANK Rhig Reqd See Note 1 04/05 Result Comment: 04/05/2017 06:44 CEPRASEK The RESULTS This patient is not a candidate for Rh(O)D immune globulin. [place] (04/05/17 5:29 AM) BLOOD BANK ABO/Rh B POS 04/05 The RESULTS [place] CHEM PANEL eGFR 151 04/05 Result Comment: The eGFR is calculated using the CKD-EPI formula. In most young, healthy individuals the eGFR will be >90 mL/ min/1.73m2. The eGFR declines with age. An eGFR of 60-89 may be normal in The mL/min/1. some populations, particularly the elderly, for whom the CKD-EPI formula has not been extensively validated. Use of the eGFR is not recommended in the following populations: [place] 3m2 Individuals with unstable creatinine concentrations, including patients and those with serious co-morbid conditions. Patients with extremes in muscle mass or diet. The data above are obtained from the National Kidney Disease Education Program (NKDEP) which additionally recommends that when the eGFR is used in patients with extremes of body mass index for purposes of drug dosing, the eGFR should be multiplied by the estimated BMI. CHEM PANEL A/G Ratio 0.8 0.7 - 1.6 04/05 [place] CHEM PANEL AGAP 13.4 meq/L 10.0 - 04/05 The [place] CHEM PANEL Bili Total 0.2 mg/dL 0.2 - 1.3 04/05 [place] CHEM PANEL Alk Phos 68 unit/L 39 - 136 04/05 [place] CHEM PANEL AST 11 unit/L 0 - 37 04/05 The [place] CHEM PANEL ALT 12 unit/L 0 - 65 04/05 The [place] CHEM PANEL Albumin Lvl 2.5 g/dL 3.5 - 5.0 04/05 The [place] CHEM PANEL Total 5.7 g/dL 6.4 - 8.4 04/05 The Protein [place] CHEM PANEL Calcium Lvl 8.3 mg/dL 8.5 - 10.5 04/05 The [place] CHEM PANEL CO2 22 meq/L 24 - 32 04/05 The [place] CHEM PANEL Chloride Lvl 111 meq/L 95 - 109 04/05 The [place] CHEM PANEL Globulin 3.2 g/dL 2.7 - 4.2 04/05 The [place] CHEM PANEL B/C Ratio 10 6 - 25 04/05 The [place] CHEM PANEL Glucose Lvl 84 mg/dL 70 - 99 04/05 The [place] CHEM PANEL Creatinine 0.41 mg/dL 0.50 - 04/05 The Lvl 1.40 [place] CHEM PANEL Potassium 3.4 meq/L 3.5 - 5.1 04/05 The Lvl [place] CHEM PANEL Sodium Lvl 143 meq/L 135 - 145 04/05 The [place] CHEM PANEL BUN 4 mg/dL 7 - 22 04/05 The [place] HEMATOLOGY Hct 27.9 % 36.0 - 04/05 The 48.0 [place] HEMATOLOGY MCH 30.6 pg 27.0 - 04/05 The 31.0 [place] HEMATOLOGY MCHC 34.5 g/dL 32.0 - 04/05 The 36.0 [place] HEMATOLOGY MCV 88.9 fL 80.0 - 04/05 The 98.0 [place] HEMATOLOGY RDW 13.0 % 11.5 - 04/05 The 14. [place] HEMATOLOGY Platelet 170 K/CMM 133 - 450 04/05 The [place] HEMATOLOGY MPV 7.6 fL 7.4 - 10.4 04/05 The [place] HEMATOLOGY WBC 7.7 K/CMM 3.7 - 10.4 04/05 The [place] HEMATOLOGY Hgb 9.6 g/dL 12.0 - 04/05 MH The 16.0 [place] HEMATOLOGY RBC 3.14 M/CMM 4.20 - 04/05 MH The 5.40 [place] HEMATOLOGY Segs 55.0 % 45.0 - 04/05 MH The 75.0 [place] HEMATOLOGY Lymphocytes 35.9 % 20.0 - 04/05 MH The 40.0 [place] HEMATOLOGY Basophils 0.5 % 0.0 - 1.0 04/05 MH The [place] HEMATOLOGY Monocytes 7.6 % 2.0 - 12.0 04/05 MH The [place] HEMATOLOGY Lymphocytes 2.8 K/CMM 1.0 - 5.5 04/05 MH The # [place] HEMATOLOGY Eosinophils 1.0 % 0.0 - 4.0 04/05 MH The [place] HEMATOLOGY Segs-Bands # 4.2 K/CMM 1.5 - 8.1 04/05 MH The [place] HEMATOLOGY Monocytes # 0.6 K/CMM 0.0 - 0.8 04/05 The [place] HEMATOLOGY Eosinophils 0.1 K/CMM 0.0 - 0.5 04/05 MH The # [place] CHEM PANEL Globulin 3.7 g/dL 2.7 - 4.2 04/04 MH The [place] CHEM PANEL A/G Ratio 0.9 0.7 - 1.6 04/04 MH The [place] CHEM PANEL AGAP 10.4 meq/L 10.0 - 04/04 MH The 20.0 [place] CHEM PANEL B/C Ratio 7 6 - 25 04/04 The [place] CHEM PANEL eGFR 145 04/04 Result Comment: The eGFR is calculated using the CKD-EPI formula. In most young, healthy individuals the eGFR will be >90 mL/ min/1.73m2. The eGFR declines with age. An eGFR of 60-89 may be normal in The mL/min/1.7 /2016 some populations, particularly the elderly, for whom the CKD-EPI formula has not been extensively validated. Use of the eGFR is not recommended in the following populations: [place] 3m2 Individuals with unstable creatinine concentrations, including patients and those with serious co-morbid conditions. Patients with extremes in muscle mass or diet. The data above are obtained from the National Kidney Disease Education Program (NKDEP) which additionally recommends that when the eGFR is used in patients with extremes of body mass index for purposes of drug dosing, the eGFR should be multiplied by the estimated BMI. CHEM PANEL Albumin Lvl 3.2 g/dL 3.5 - 5.0 04/04 MH The [place] CHEM PANEL Total 6.9 g/dL 6.4 - 8.4 04/04 MH The Protein [place] CHEM PANEL Calcium Lvl 8.9 mg/dL 8.5 - 10.5 04/04 MH The [place] CHEM PANEL CO2 26 meq/L 24 - 32 04/04 MH The [place] CHEM PANEL Bili Total 0.3 mg/dL 0.2 - 1.3 04/04 MH The [place] CHEM PANEL AST 12 unit/L 0 - 37 04/04 MH The [place] CHEM PANEL ALT 15 unit/L 0 - 65 04/04 MH The [place] CHEM PANEL Alk Phos 81 unit/L 39 - 136 04/04 MH The [place] CHEM PANEL BUN 3 mg/dL 7 - 22 04/04 MH The [place] CHEM PANEL Glucose Lvl 98 mg/dL 70 - 99 04/04 MH The [place] CHEM PANEL Creatinine 0.46 mg/dL 0.50 - 04/04 MH The Lvl 1.40 [place] CHEM PANEL Sodium Lvl 140 meq/L 135 - 145 04/04 MH The [place] CHEM PANEL Chloride Lvl 107 meq/L 95 - 109 04/04 MH The [place] CHEM PANEL Potassium 3.4 meq/L 3.5 - 5.1 04/04 MH The Lvl [place] HEMATOLOGY RBC 3.50 M/CMM 4.20 - 04/04 MH The 5.40 [place] HEMATOLOGY WBC 9.1 K/CMM 3.7 - 10.4 04/04 MH The [place] HEMATOLOGY Hgb 10.6 g/dL 12.0 - 04/04 MH The 16.0 [place] HEMATOLOGY Platelet 207 K/CMM 133 - 450 04/04 MH The [place] HEMATOLOGY RDW 13.1 % 11.5 - 04/04 MH The 14.5 [place] HEMATOLOGY MCHC 33.9 g/dL 32.0 - 05/18 MH The 36.0 [place] HEMATOLOGY MPV 7.5 fL 7.4 - 10.4 04/04 The [place] HEMATOLOGY MCH 30.3 pg 27.0 - 04/04 The 31.0 [place] HEMATOLOGY MCV 89.4 fL 80.0 - 04/04 The 98.0 [place] HEMATOLOGY Hct 31.3 % 36.0 - 04/04 MH The 48.0 [place] HEMATOLOGY Basophils 0.2 % 0.0 - 1.0 04/04 The [place] HEMATOLOGY Eosinophils 0.4 % 0.0 - 4.0 04/04 The [place] HEMATOLOGY Segs-Bands # 6.5 K/CMM 1.5 - 8.1 04/04 The [place] HEMATOLOGY Plt Morph Normal 04/04 The [place] (04/04/17 2:32 PM) HEMATOLOGY Segs 71.4 % 45.0 - 04/04 The 75.0 [place] HEMATOLOGY Monocytes 6.0 % 2.0 - 12.0 04/04 The [place] HEMATOLOGY Lymphocytes 22.0 % 20.0 - 04/04 MH The 40.0 [place] HEMATOLOGY Anisocyte 1+ None Seen 04/04lands *ABN* (04/04/17 2:32 PM) HEMATOLOGY Macrocyte 1+ None Seen 04/04lands *ABN* (04/04/17 2:32 PM) HEMATOLOGY Monocytes # 0.5 K/CMM 0.0 - 0.8 04/04 The [place] HEMATOLOGY Lymphocytes 2.0 K/CMM 1.0 - 5.5 04/04 The [facility] URINE AND UA <=1.0 0.1 - 1.0 04/04 The STOOL Urobilinogen mg/dL [facility] URINE AND UA Glucose Negative Negative 04/04 The STOOL mg/dL mg/dL [facility] URINE AND UA Bili Negative Negative 04/04 The STOOL [facility] *NA* (04/04/17 2:32 PM) URINE AND UA Ketones Negative Negative 04/04 The STOOL mg/dL mg/dL [facility] URINE AND UA Leuk Est Large Negative 04/04 The STOOL [facility] *ABN* (04/04/17 2:32 PM) URINE AND UA Protein 20 mg/dL Negative 04/04 The STOOL mg/dL [place] URINE AND UA Blood Large Negative 04/04 The [place] *ABN* (04/04/17 2:32 PM) URINE AND UA WBC 25 /HPF 0 - 5 04/04 The [place] URINE AND UA Sq Epi Many /LPF Few /LPF 04/04 The STOOL [place] URINE AND UA Mucus Few /LPF None Seen 04/04 The STOOL /LPF /2016 [place] URINE AND UA Nitrite Negative Negative 04/04 The STOOL [place] (04/04/17 2:32 PM) URINE AND UA RBC null 0 - 2 04/04 The STOOL [place] URINE AND UA Bacteria Occasional None Seen 04/04 The STOOL /HPF /HPF /2016 [place] URINE AND UA pH 7.0 5.0 - 8.0 04/04 The [place] URINE AND UA Spec Grav 1.009 <=1.030 04/04 The [place] URINE AND UA Color Yellow Yellow 04/04 The [place] *NA* (04/04/17 2:32 PM) URINE AND UA Turbidity Slight Clear 04/04 The [place] *ABN* (04/04/17 2:32 PM) ELECTROLYT Potassium 3.7 meq/L 3.5 - 5.1 04/01 MH The ES Lvl [place] ELECTROLYT Creatinine 0.39 mg/dL 0.50 - 04/01 MH The ES Lvl 1.40 [place] ELECTROLYT CO2 24 meq/L 24 - 32 04/01 MH The [place] ELECTROLYT Calcium Lvl 8.7 mg/dL 8.5 - 10.5 04/01 MH The [place] ELECTROLYT Chloride Lvl 108 meq/L 95 - 109 04/01 MH The [place] ELECTROLYT AGAP 11.7 meq/L 10.0 - 04/01 MH The ES 20.0 [place] ELECTROLYT eGFR 152 04/01 Result Comment: The eGFR is calculated using the CKD-EPI formula. In most young, healthy individuals the eGFR will be >90 mL/ min/1.73m2. The eGFR declines with age. An eGFR of 60-89 may be normal in The mL/min/1.7 some populations, particularly the elderly, for whom the CKD-EPI formula has not been extensively validated. Use of the eGFR is not recommended in the following populations: [place] 3m2 Individuals with unstable creatinine concentrations, including patients and those with serious co-morbid conditions. Patients with extremes in muscle mass or diet. The data above are obtained from the National Kid[employer] Education Program (NKDEP) which additionally recommends that when the eGFR is used in patients with extremes of body mass index for purposes of drug dosing, the eGFR should be multiplied by the estimated BMI. ELECTROLYT Sodium Lvl 140 meq/L 135 - 145 04/01 [facility] [place] ELECTROLYT Glucose Lvl 84 mg/dL 70 - 99 04/01 [facility] [place] ELECTROLYT BUN 5 mg/dL 7 - 22 04/01 [facility] [place] URINE AND UA <=1.0 0.1 - 1.0 03/31 [facility] Urobilinogen mg/dL [place] URINE AND UA Hyal Cast 10 /LPF 0 - 2 03/31 [facility] [place] URINE AND UA Mucus Few /LPF None Seen 03/31 [facility] /LPF [place] URINE AND UA Leuk Est Large Negative 03/31 [facility] [place] *ABN* (03/31/17 12:22 AM) URINE AND UA Nitrite Negative Negative 03/31 [facility] [place] (03/31/17 12:22 AM) URINE AND UA Sq Epi Many /LPF Few /LPF 03/31 [facility] [place] URINE AND UA RBC null 0 - 2 03/31 [facility] [place] URINE AND UA WBC 127 /HPF 0 - 5 03/31 [facility] [place] URINE AND UA Bili Negative Negative 03/31 [facility] [place] *NA* (03/31/17 12:22 AM) URINE AND UA Ketones Negative Negative 03/31 [facility] mg/dL mg/dL [place] URINE AND UA Blood Large Negative 03/31 [facility] [place] *ABN* (03/31/17 12:22 AM) URINE AND UA Glucose Negative Negative 03/31 [facility] mg/dL mg/dL [place] URINE AND UA Protein 30 mg/dL Negative 03/31 [facility] mg/dL [place] URINE AND UA Turbidity Slight Clear 03/31 The [place] *ABN* (03/31/17 12:22 AM) URINE AND UA Color Red Yellow 03/31 [facility] [place] *ABN* (03/31/17 12:22 AM) URINE AND UA Spec Grav 1.016 <=1.030 03/31 The STOOL [place] URINE AND UA pH 6.5 5.0 - 8.0 03/31 The [place] CHEM PANEL A/G Ratio 0.8 0.7 - 1.6 03/31 The [place] CHEM PANEL Globulin 3.8 g/dL 2.7 - 4.2 03/31 [place] CHEM PANEL B/C Ratio 9 6 - 25 03/31 [place] CHEM PANEL AGAP 12.3 meq/L 10.0 - 03/31 The 20.0 [place] CHEM PANEL eGFR 148 03/31 Result Comment: The eGFR is calculated using the CKD-EPI formula. In most young, healthy individuals the eGFR will be >90 mL/ min/1.73m2. The eGFR declines with age. An eGFR of 60-89 may be normal in The mL/min/1.7 some populations, particularly the elderly, for whom the CKD-EPI formula has not been extensively validated. Use of the eGFR is not recommended in the following populations: [place] 3m2 Individuals with unstable creatinine concentrations, including patients and those with serious co-morbid conditions. Patients with extremes in muscle mass or diet. The data above are obtained from the National Kidney Disease Education Program (NKDEP) which additionally recommends that when the eGFR is used in patients with extremes of body mass index for purposes of drug dosing, the eGFR should be multiplied by the estimated BMI. CHEM PANEL Albumin Lvl 3.1 g/dL 3.5 - 5.0 03/31 [place] CHEM PANEL Bili Total 0.3 mg/dL 0.2 - 1.3 03/31 [place] CHEM PANEL AST 13 unit/L 0 - 37 03/31 [place] CHEM PANEL ALT 15 unit/L 0 - 65 03/31 [place] CHEM PANEL Total 6.9 g/dL 6.4 - 8.4 03/31 The Protein [place] CHEM PANEL Calcium Lvl 8.6 mg/dL 8.5 - 10.5 03/31 The [place] CHEM PANEL CO2 21 meq/L 24 - 32 03/31 The [place] CHEM PANEL Glucose Lvl 95 mg/dL 70 - 99 03/31 The [place] CHEM PANEL Alk Phos 80 unit/L 39 - 136 03/31 The [place] CHEM PANEL Chloride Lvl 110 meq/L 95 - 109 03/31 The [place] CHEM PANEL Potassium 3.3 meq/L 3.5 - 5.1 03/31 The Lvl [place] CHEM PANEL Sodium Lvl 140 meq/L 135 - 145 03/31 The [place] CHEM PANEL Creatinine 0.43 mg/dL 0.50 - 03/31 The Lvl 1.40 [place] CHEM PANEL BUN 4 mg/dL 7 - 22 03/31 The [place] HEMATOLOGY Lymphocytes 3.0 K/CMM 1.0 - 5.5 03/31 The # [place] HEMATOLOGY Monocytes # 0.4 K/CMM 0.0 - 0.8 03/31 The [place] HEMATOLOGY Bands 0.0 % 0.0 - 11.0 03/31 The [place] HEMATOLOGY Eosinophils 0.1 K/CMM 0.0 - 0.5 03/31 The [place] HEMATOLOGY Segs 57.0 % 45.0 - 03/31 The 75.0 [place] HEMATOLOGY Plt Morph Normal 03/31 The [place] (03/30/17 11:06 PM) HEMATOLOGY Segs-Bands # 4.6 K/CMM 1.5 - 8.1 03/31 The [place] HEMATOLOGY Lymphocytes 37.0 % 20.0 - 03/31 The 40.0 [place] HEMATOLOGY Monocytes 5.0 % 2.0 - 12.0 03/31 The [place] HEMATOLOGY RBC Morph Normal 03/31 [place] (03/30/17 11:06 PM) HEMATOLOGY Eosinophils 1.0 % 0.0 - 4.0 03/31 The [place] HEMATOLOGY Atypical 0.0 % <=0.0 % 03/31 The Lymphs /2016 [place] HEMATOLOGY RBC 3.57 M/CMM 4.20 - 03/31 The 5.40 [place] HEMATOLOGY WBC 8.0 K/CMM 3.7 - 10.4 03/31 The [place] HEMATOLOGY Hgb 10.9 g/dL 12.0 - 03/31 The 16.0 [place] HEMATOLOGY Hct 31.7 % 36.0 - 03/31 The 48.0 [place] HEMATOLOGY MCV 88.7 fL 80.0 - 03/31 The 98.0 [place] HEMATOLOGY MCH 30.5 pg 27.0 - 03/31 The 31.0 [place] HEMATOLOGY RDW 13.0 % 11.5 - 03/31 The 14.5 [place] HEMATOLOGY MCHC 34.3 g/dL 32.0 - 03/31 The 36.0 [place] HEMATOLOGY MPV 7.2 fL 7.4 - 10.4 03/31 [place] HEMATOLOGY Platelet 215 K/CMM 133 - 450 03/31 [place] Retroperit Retroperiton RETROPERITONEAL COMPLETE ULTRASOUND 03/31 The [facility] eal limited [facility] US US HISTORY: R FLANK PAIN - R FLANK PAIN; Read by: Sree Huggins MD Dictated Date/time: 03/31/17 00:29 Electronically Signed by: Sree Huggins MD 03/31/17 00:30 FINAL REPORT COMPARISON: Renal ultrasound dated 02/03/2017 TECHNIQUE: Multiple longitudinal and transverse real time sonographic images of the kidneys and urinary bladder are obtained. FINDINGS: KIDNEYS: The kidneys are normal in size, shape, contour, and position. The cortices are normal in thickness and the corticomedullary differentiation is maintained. There is no hydronephrosis, nephrolithiasis, or abnormal perinephric collections. The right kidney measures 12.4 x 4.3 x 6.5 cm. The left kidney measures 12.1 x 4.2 x 6.1 cm. BLADDER: The bladder is well-distended and unremarkable. IMPRESSION: Normal retroperitoneal ultrasound. SL: [id number] Exam: OB Ultrasound 03/31 The age age /2016 [facility] Clinical Indication: Vaginal bleeding Read by: Gianluca Reina MD Dictated Date/time: 03/31/17 00:49 Electronically Signed by: Gianluca Reina MD 03/31/17 01:19 FINAL REPORT Technique: Limited OB transabdominal ultrasound is performed. Findings: Exam shows a single live intrauterine gestation measuring 27w3d. FHR equals 134 bpm. BPD equals 7.1 cm, corresponding to 28 weeks 4 days. HC equals 25.8 cm, corresponding to 28 weeks 0 day. AC equal s 21 cm corresponding to 25 weeks 5 days. F.L. equals 5.1 cm corresponding to 27 weeks 2 days. HC/AC equals 1.23. FL/AC equals 24%. FL/BPD equals 72%. C. I. equals 77%. presentation is vertex. Estimated weight equals 951 g +/ - 139 g which is equivalent to 2 lbs 2 oz +/ - 5 ounces. DWIGHT equals 13 cm. Placenta is posterior, grade 2. There is no placenta previa. Cervix is intact and measures 3.7 cm. There is no pelvic free fluid. Impression: Single live intrauterine gestation measuring 27w3d with heart rate equals 134 bpm. BLOOD BANK Antibody Negative 03/29 [facility] RESULTS [facility] /2016 [facility] (03/28/17 8:22 PM) [place] BLOOD BANK ABO/Rh B POS 03/29 [facility] /2016 [facility] URINE AND UA Color Yellow Yellow 03/21 [facility] [place] *NA* (03/20/17 10:16 PM) URINE AND UA Turbidity Clear Clear 03/21 The STOOL [place] (03/20/17 10:16 PM) URINE AND UA Spec Grav 1.010 <=1.030 03/21 The [place] URINE AND UA pH 7.0 5.0 - 8.0 03/21 The STOOL [place] URINE AND UA RBC 0-2 /HPF 0 - 2 03/21 The [facility] [place] URINE AND UA CaOx Lisa Occasional None Seen 03/21 The STOOL /HPF /HPF /2016 [place] URINE AND UA Bacteria None Seen None Seen 03/21 The [facility] [place] (03/20/17 10:16 PM) URINE AND UA 0.2 EU/dL 0.1 - 1.0 03/21 The STOOL Urobilinogen /2016 [place] URINE AND UA Glucose Negative Negative 03/21 The STOOL [place] (03/20/17 10:16 PM) URINE AND UA Protein Negative Negative 03/21 The STOOL [place] (03/20/17 10:16 PM) URINE AND UA Blood Negative Negative 03/21 The STOOL [place] (03/20/17 10:16 PM) URINE AND UA Bili Negative Negative 03/21 The STOOL [place] *NA* (03/20/17 10:16 PM) URINE AND UA Leuk Est Small Negative 03/21 The STOOL [place] *ABN* (03/20/17 10:16 PM) URINE AND UA Nitrite Negative Negative 03/21 The STOOL [place] (03/20/17 10:16 PM) URINE AND Micro? Performed 03/21 The STOOL [place] (03/20/17 10:16 PM) URINE AND UA Sq Epi Many /LPF Few /LPF 03/21 The STOOL [place] URINE AND UA Ketones Negative Negative 03/21 The STOOL [place] *NA* (03/20/17 10:16 PM) URINE AND UA WBC 6-10 /HPF 0 - 5 03/21 The STOOL [place] DRUG U Opiate Scr Negative Negative 02/26 The SCREEN [place] *NA* (02/25/17 9:23 PM) DRUG U Cannab Scr Negative Negative 02/26 The SCREEN [place] *NA* (02/25/17 9:23 PM) DRUG U Phencyc Negative Negative 02/26 The SCREEN Scr [place] *NA* (02/25/17 9:23 PM) DRUG U Cocaine Negative Negative 02/26 The SCREEN Scr [place] *NA* (02/25/17 9:23 PM) DRUG U Benzodia Negative Negative 02/26 The SCREEN Scr [place] *NA* (02/25/17 9:23 PM) DRUG UDS Note See Note 02/26 The [place] *NA* (02/25/17 9:23 PM) DRUG U Jeannie Scr Negative Negative 02/26 The [place] *NA* (02/25/17 9:23 PM) DRUG U Amph Scr Negative Negative 02/26 The SCREEN [place] *NA* (02/25/17 9:23 PM) URINE AND UA <=1.0 0.1 - 1.0 02/26 The [facility]OL Urobilinogen mg/dL [place] URINE AND UA Mucus Few /LPF None Seen 02/26 The [place] /LPF [place] URINE AND UA Bili Negative Negative 02/26 The [facility] *NA* (02/25/17 9:23 PM) URINE AND UA Sq Epi None Seen 02/26 The [place] URINE AND UA Blood Negative Negative 02/26 The [place] (02/25/17 9:23 PM) URINE AND UA Nitrite Negative Negative 02/26 The [facility] (02/25/17 9:23 PM) URINE AND UA Leuk Est Negative Negative 02/26 The [place] (02/25/17 9:23 PM) URINE AND UA WBC 1 /HPF 0 - 5 02/26 The [place] URINE AND UA RBC null 0 - 2 02/26 The [facility] URINE AND UA pH 7.0 5.0 - 8.0 02/26 The [place] URINE AND UA Protein Negative Negative 02/26 The [facility] mg/dL mg/dL [place] URINE AND UA Glucose Negative Negative 02/26 The [facility] mg/dL mg/dL [place] URINE AND UA Ketones Negative Negative 02/26 The [facility] mg/dL mg/dL [place] URINE AND UA Turbidity Slight Clear 02/26 The [place] *ABN* (02/25/17 9:23 PM) URINE AND UA Spec Grav 1.006 <=1.030 02/26 The [place] URINE AND UA Color Light Yellow Yellow 02/26 The [place] *NA* (02/25/17 9:23 PM) CHEM PANEL A/G Ratio 0.9 0.7 - 1.6 02/26 [place] CHEM PANEL AGAP 13.8 meq/L 10.0 - 02/26 The 20.0 [place] CHEM PANEL Globulin 3.7 g/dL 2.7 - 4.2 02/26 [place] CHEM PANEL B/C Ratio 21 6 - 25 02/26 The [place] CHEM PANEL eGFR 153 02/26 Result Comment: The eGFR is calculated using the CKD-EPI formula. In most young, healthy individuals the eGFR will be >90 mL/ min/1.73m2. The eGFR declines with age. An eGFR of 60-89 may be normal in The mL/min/1.7 some populations, particularly the elderly, for whom the CKD-EPI formula has not been extensively validated. Use of the eGFR is not recommended in the following populations: [address] Individuals with unstable creatinine concentrations, including patients and those with serious co-morbid conditions. Patients with extremes in muscle mass or diet. The data above are obtained from the National Kidney Disease Education Program (NKDEP) which additionally recommends that when the eGFR is used in patients with extremes of body mass index for purposes of drug dosing, the eGFR should be multiplied by the estimated BMI. CHEM PANEL Bili Total 0.2 mg/dL 0.2 - 1.3 02/26 [place] CHEM PANEL Alk Phos 66 unit/L 39 - 136 02/26 The [place] CHEM PANEL Glucose Lvl 90 mg/dL 70 - 99 02/26 The [place] CHEM PANEL BUN 8 mg/dL 7 - 22 02/26 [place] CHEM PANEL Creatinine 0.39 mg/dL 0.50 - 02/26 The Lvl 1.40 [place] CHEM PANEL Potassium 3.8 meq/L 3.5 - 5.1 02/26 The Lvl [place] CHEM PANEL CO2 22 meq/L 24 - 32 02/26 The [place] CHEM PANEL Sodium Lvl 140 meq/L 135 - 145 02/26 The [place] CHEM PANEL Chloride Lvl 108 meq/L 95 - 109 02/26 The [place] CHEM PANEL Total 6.9 g/dL 6.4 - 8.4 02/26 The Protein [place] CHEM PANEL Calcium Lvl 8.6 mg/dL 8.5 - 10.5 02/26 The [place] CHEM PANEL Albumin Lvl 3.2 g/dL 3.5 - 5.0 02/26 The [place] CHEM PANEL ALT 12 unit/L 0 - 65 02/26 The [place] CHEM PANEL AST 9 unit/L 0 - 37 02/26 The [place] HEMATOLOGY MPV 7.4 fL 7.4 - 10.4 02/26 The [place] HEMATOLOGY Platelet 254 K/CMM 133 - 450 02/26 The [place] HEMATOLOGY RDW 13.3 % 11.5 - 02/26 The 14.5 [place] HEMATOLOGY MCHC 35.0 g/dL 32.0 - 02/26 The 36.0 [place] HEMATOLOGY MCV 89.8 fL 80.0 - 02/26 The 98.0 [place] HEMATOLOGY Hct 32.1 % 36.0 - 02/26 The 48.0 [place] HEMATOLOGY RBC 3.57 M/CMM 4.20 - 02/26 The 5.40 [place] HEMATOLOGY MCH 31.4 pg 27.0 - 02/26 The 31.0 [place] HEMATOLOGY Hgb 11.2 g/dL 12.0 - 02/26 The 16.0 [place] HEMATOLOGY WBC 9.5 K/CMM 3.7 - 10.4 02/26 The [place] HEMATOLOGY Monocytes # 0.6 K/CMM 0.0 - 0.8 02/26 The [place] HEMATOLOGY Eosinophils 0.1 K/CMM 0.0 - 0.5 02/26 [facility] The [place] HEMATOLOGY Eosinophils 0.7 % 0.0 - 4.0 02/26 The [place] HEMATOLOGY Basophils 0.4 % 0.0 - 1.0 02/26 The [place] HEMATOLOGY Segs-Bands # 6.2 K/CMM 1.5 - 8.1 02/26 The [place] HEMATOLOGY Lymphocytes 26.9 % 20.0 - 02/26 The 40.0 [place] HEMATOLOGY Monocytes 6.6 % 2.0 - 12.0 02/26 The [place] HEMATOLOGY Segs 65.4 % 45.0 - 02/26 The 75.0 [place] HEMATOLOGY Lymphocytes 2.6 K/CMM 1.0 - 5.5 02/26 The [place] CHEM PANEL eGFR 139 02/23 Result Comment: The eGFR is calculated using the CKD-EPI formula. In most young, healthy individuals the eGFR will be >90 mL/ min/1.73m2. The eGFR declines with age. An eGFR of 60-89 may be normal in The mL/min/1.7 some populations, particularly the elderly, for whom the CKD-EPI formula has not been extensively validated. Use of the eGFR is not recommended in the following populations: [address] Individuals with unstable creatinine concentrations, including patients and those with serious co-morbid conditions. Patients with extremes in muscle mass or diet. The data above are obtained from the National Kidney Disease Education Program (NKDEP) which additionally recommends that when the eGFR is used in patients with extremes of body mass index for purposes of drug dosing, the eGFR should be multiplied by the estimated BMI. CHEM PANEL ALT 11 unit/L 0 - 65 02/23 [place] CHEM PANEL AST 9 unit/L 0 - 37 02/23 [place] CHEM PANEL Albumin Lvl 3.0 g/dL 3.5 - 5.0 02/23 [place] CHEM PANEL Potassium 3.4 meq/L 3.5 - 5.1 02/23 The Lvl [place] CHEM PANEL Total 6.3 g/dL 6.4 - 8.4 02/23 The Protein [place] CHEM PANEL CO2 23 meq/L 24 - 32 02/23 The [place] CHEM PANEL Calcium Lvl 8.3 mg/dL 8.5 - 10.5 02/23 The [place] CHEM PANEL Chloride Lvl 110 meq/L 95 - 109 02/23 The [place] CHEM PANEL Sodium Lvl 141 meq/L 135 - 145 02/23 The [place] CHEM PANEL Bili Total 0.2 mg/dL 0.2 - 1.3 02/23 [place] CHEM PANEL Alk Phos 58 unit/L 39 - 136 02/23 [place] CHEM PANEL Creatinine 0.52 mg/dL 0.50 - 04/ The Lvl 1.40 [place] CHEM PANEL BUN 6 mg/dL 7 - 22 02/23 The [place] CHEM PANEL Glucose Lvl 100 mg/dL 70 - 99 02/23 [place] CHEM PANEL B/C Ratio 12 6 - 25 02/23 [place] CHEM PANEL Globulin 3.3 g/dL 2.7 - 4.2 02/23 The [place] CHEM PANEL A/G Ratio 0.9 0.7 - 1.6 02/23 The [place] CHEM PANEL AGAP 11.4 meq/L 10.0 - 02/23 The 20.0 [place] DRUG UDS Note See Note 02/23 The [place] (02/23/17 1:39 AM) DRUG U Phencyc Negative Negative 02/23 The SCREEN [place] *NA* (02/23/17 1:39 AM) DRUG U Amph Scr Negative Negative 02/23 The [place] *NA* (02/23/17 1:39 AM) DRUG U Benzodia Negative Negative 02/23 The SCREEN [place] *NA* (02/23/17 1:39 AM) DRUG U Jeannie Scr Negative Negative 02/23 The [place] *NA* (02/23/17 1:39 AM) DRUG U Opiate Scr Negative Negative 02/23 The [place] *NA* (02/23/17 1:39 AM) DRUG U Cocaine Negative Negative 02/23 The SCREEN [place] *NA* (02/23/17 1:39 AM) DRUG U Cannab Scr Positive Negative 02/23 The [place] *ABN* (02/23/17 1:39 AM) HEMATOLOGY WBC 9.4 K/CMM 3.7 - 10.4 02/23 [place] HEMATOLOGY RBC 3.30 M/CMM 4.20 - 02/23 The 5.40 [place] HEMATOLOGY Hgb 10.5 g/dL 12.0 - 02/23 The 16.0 [place] HEMATOLOGY MCH 31.7 pg 27.0 - 02/23 The 31.0 [place] HEMATOLOGY MCHC 35.0 g/dL 32.0 - 02/23 The 36.0 [place] HEMATOLOGY RDW 13.6 % 11.5 - 02/23 The 14. [place] HEMATOLOGY Platelet 207 K/CMM 133 - 450 02/23 The [place] HEMATOLOGY MPV 7.0 fL 7.4 - 10.4 02/23 [place] HEMATOLOGY Hct 29.9 % 36.0 - 02/23 The 48.0 [place] HEMATOLOGY MCV 90.6 fL 80.0 - 02/23 The 98.0 [place] HEMATOLOGY Atypical 0.0 % <=0.0 % 02/23 The Lymphs [place] HEMATOLOGY RBC Morph Normal 02/23 The [place] (02/23/17 1:39 AM) HEMATOLOGY Myelocytes 4.0 % <=0.0 % 02/23 The [place] HEMATOLOGY Plt Morph Normal 02/23 The [place] (02/23/17 1:39 AM) HEMATOLOGY Segs 58.0 % 45.0 - 02/23 The 75.0 [place] HEMATOLOGY Basophils 1.0 % 0.0 - 1.0 02/23 The [place] HEMATOLOGY Lymphocytes 2.7 K/CMM 1.0 - 5.5 02/23 The # [place] HEMATOLOGY Segs-Bands # 5.7 K/CMM 1.5 - 8.1 02/23 The [place] HEMATOLOGY Monocytes # 0.5 K/CMM 0.0 - 0.8 02/23 The [place] HEMATOLOGY Basophils # 0.1 K/CMM 0.0 - 0.2 02/23 The [place] HEMATOLOGY Bands 3.0 % 0.0 - 11.0 02/23 The [place] HEMATOLOGY Lymphocytes 29.0 % 20.0 - 02/23 The 40.0 [place] HEMATOLOGY Monocytes 5.0 % 2.0 - 12.0 02/23 The [place] URINE AND UA Leuk Est Moderate Negative 02/23 The STOOL [place] *ABN* (02/23/17 1:39 AM) URINE AND UA Nitrite Negative Negative 02/23 The STOOL [place] (02/23/17 1:39 AM) URINE AND UA Blood Negative Negative 02/23 The STOOL [place] (02/23/17 1:39 AM) URINE AND UA Bili Negative Negative 02/23 The STOOL [place] *NA* (02/23/17 1:39 AM) URINE AND UA Ketones Negative Negative 02/23 The [facility] mg/dL mg/dL [place] URINE AND UA <=1.0 0.1 - 1.0 02/23 [facility] The [facility] Urobilinogen mg/dL [place] URINE AND UA RBC 2 /HPF 0 - 2 02/23 The [place] URINE AND UA WBC 4 /HPF 0 - 5 02/23 The [place] URINE AND UA Mucus Few /LPF None Seen 02/23 The [facility] /LPF [place] URINE AND UA Sq Epi Many /LPF Few /LPF 02/23 The [place] URINE AND UA Turbidity Slight Clear 02/23 The [place] *ABN* (02/23/17 1:39 AM) URINE AND UA Protein 10 mg/dL Negative 02/23 The [facility] mg/dL [place] URINE AND UA Spec Grav 1.014 <=1.030 02/23 The [place] URINE AND UA Glucose Negative Negative 02/23 The [facility] mg/dL mg/dL [place] URINE AND UA pH 6.5 5.0 - 8.0 02/23 The [place] URINE AND UA Color Yellow Yellow 02/23 The [place] *NA* (02/23/17 1:39 AM) Retroperit Retroperiton Clinical Indication: Back pain. . 02/23 - The [place] [facility] - [facility] US Comparison: Prior retroperitoneal stranding performed 2016. Read by: Jack Domingo MD Dictated Date/time: 02/23/17 02:17 TECHNIQUE: Electronically Signed by: Jack Domingo MD 02/23/17 02:20 FINAL REPORT Multiple longitudinal and transverse real time sonographic images of the kidneys and urinary bladder are obtained. FINDINGS: KIDNEY: The right kidney measures 12.9 cm. The left kidney measures 13.3 cm. The kidneys are normal in size, shape, contour, and position. The cortices are normal in thickness and the corticomedullary differentiation is maintained. There is no hydronephrosis, nephrolithiasis, or abnormal perinephric collections. BLADDER: Scanning through the pelvis reveals the bladder to be partially distended with anechoic urine. There is a partially visualized intrauterine . AORTA AND IVC: The abdominal aorta and inferior vena cava are not well visualized. ASCITES: No ascites noted. IMPRESSION: Unremarkable renal ultrasound. SL: KPAT[place]-M URINE AND UA RBC 4 /HPF 0 - 2 02/19 The [place] URINE AND UA WBC 7 /HPF 0 - 5 02/19 The [place] URINE AND UA Bacteria Occasional None Seen 02/19 The [facility] /HPF /HPF /2016 [place] URINE AND UA Glucose Negative Negative 02/19 The [facility] mg/dL mg/dL [place] URINE AND UA Ketones Negative Negative 02/19 The [facility] mg/dL mg/dL [place] URINE AND UA Color Yellow Yellow 02/19 The [place] *NA* (02/19/17 12:12 AM) URINE AND UA Blood Small Negative 02/19 The [place] *ABN* (02/19/17 12:12 AM) URINE AND Micro? Performed 02/19 The [place] *NA* (02/19/17 12:12 AM) URINE AND UA Bili Negative Negative 02/19 The [place] *NA* (02/19/17 12:12 AM) URINE AND UA Nitrite Negative Negative 02/19 The [place] (02/19/17 12:12 AM) URINE AND UA Mucus Few /LPF None Seen 02/19 The [facility] /LPF [place] URINE AND UA Spec Grav 1.009 <=1.030 02/19 The [place] URINE AND UA Turbidity Slight Clear 02/19 The [place] *ABN* (02/19/17 12:12 AM) URINE AND UA Sq Epi Many /LPF Few /LPF 02/19 The [place] URINE AND UA Leuk Est Small Negative 02/19 The [place] *ABN* (02/19/17 12:12 AM) URINE AND UA Protein Negative Negative 02/19 The [facility] mg/dL mg/dL [place] URINE AND UA pH 6.5 5.0 - 8.0 02/19 The [place] URINE AND UA <=1.0 0.1 - 1.0 02/19 The STOOL Urobilinogen mg/dL [place] CHEM PANEL Bili Total 0.2 mg/dL 0.2 - 1.3 02/03 [place] CHEM PANEL Alk Phos 59 unit/L 39 - 136 02/03 The [place] CHEM PANEL eGFR 146 02/03 Result Comment: The eGFR is calculated using the CKD-EPI formula. In most young, healthy individuals the eGFR will be >90 mL/ min/1.73m2. The eGFR declines with age. An eGFR of 60-89 may be normal in The mL/min/1.7 some populations, particularly the elderly, for whom the CKD-EPI formula has not been extensively validated. Use of the eGFR is not recommended in the following populations: [address] Individuals with unstable creatinine concentrations, including patients and those with serious co-morbid conditions. Patients with extremes in muscle mass or diet. The data above are obtained from the National Kidney Disease Education Program (NKDEP) which additionally recommends that when the eGFR is used in patients with extremes of body mass index for purposes of drug dosing, the eGFR should be multiplied by the estimated BMI. CHEM PANEL Creatinine 0.44 mg/dL 0.50 - 02/03 The Lvl 1.40 [place] CHEM PANEL BUN 3 mg/dL 7 - 22 02/03 [place] CHEM PANEL Glucose Lvl 147 mg/dL 70 - 99 02/03 The [place] CHEM PANEL Sodium Lvl 143 meq/L 135 - 145 02/03 The [place] CHEM PANEL AST 12 unit/L 0 - 37 02/03 The [place] CHEM PANEL ALT 12 unit/L 0 - 65 02/03 The [place] CHEM PANEL Albumin Lvl 2.9 g/dL 3.5 - 5.0 02/03 The [place] CHEM PANEL Total 6.1 g/dL 6.4 - 8.4 02/03 The Protein [place] CHEM PANEL Calcium Lvl 7.7 mg/dL 8.5 - 10.5 02/03 The [place] CHEM PANEL CO2 24 meq/L 24 - 32 02/03 [place] CHEM PANEL Chloride Lvl 109 meq/L 95 - 109 02/03 The [place] CHEM PANEL Potassium 3.1 meq/L 3.5 - 5.1 02/03 The Lvl [place] CHEM PANEL A/G Ratio 0.9 0.7 - 1.6 02/03 The [place] CHEM PANEL Globulin 3.2 g/dL 2.7 - 4.2 02/03 The [place] CHEM PANEL B/C Ratio 7 6 - 25 02/03 The [place] CHEM PANEL AGAP 13.1 meq/L 10.0 - 02/03 The 20.0 [place] DRUG UDS Note See Note 02/03 The [place] *NA* (02/02/17 11:14 PM) DRUG U Cannab Scr Negative Negative 02/03 The [place] *NA* (02/02/17 11:14 PM) DRUG U Phencyc Negative Negative 02/03 The SCREEN Scr [place] *NA* (02/02/17 11:14 PM) DRUG U Opiate Scr Negative Negative 02/03 The [place] *NA* (02/02/17 11:14 PM) DRUG U Amph Scr Negative Negative 02/03 The [place] *NA* (02/02/17 11:14 PM) DRUG U Jeannie Scr Negative Negative 02/03 The [place] *NA* (02/02/17 11:14 PM) DRUG U Benzodia Negative Negative 02/03 The SCREEN Scr [place] *NA* (02/02/17 11:14 PM) DRUG U Cocaine Negative Negative 02/03 The SCREEN [place] *NA* (02/02/17 11:14 PM) HEMATOLOGY Lymphocytes 2.7 K/CMM 1.0 - 5.5 02/03 The [place] HEMATOLOGY Monocytes # 0.5 K/CMM 0.0 - 0.8 02/03 The [place] HEMATOLOGY Eosinophils 0.1 K/CMM 0.0 - 0.5 02/03 The [place] HEMATOLOGY Segs-Bands # 4.9 K/CMM 1.5 - 8.1 02/03 The [place] HEMATOLOGY Lymphocytes 33.5 % 20.0 - 02/03 The 40.0 [place] HEMATOLOGY Monocytes 5.7 % 2.0 - 12.0 02/03 The [place] HEMATOLOGY Eosinophils 0.9 % 0.0 - 4.0 02/03 The [place] HEMATOLOGY Basophils 0.4 % 0.0 - 1.0 02/03 The [place] HEMATOLOGY Segs 59.5 % 45.0 - 02/03 The 75.0 [place] HEMATOLOGY MPV 7.3 fL 7.4 - 10.4 02/03 The [place] HEMATOLOGY Platelet 214 K/CMM 133 - 450 02/03 The [place] HEMATOLOGY RBC 3.33 M/CMM 4.20 - 02/03 [facility] 5.40 [facility]EMAT[facility] Hgb 10.4 g/dL 12.0 - 02/03 The 16.0 [facility] HEMAT[facility] WBC 8.2 K/CMM 3.7 - 10.4 02/03 [facility]EMAT[facility] MCHC 34.5 g/dL 32.0 - 02/03 The 36.0 [facility]EMAT[facility] Hct 30.1 % 36.0 - 02/03 The 48.0 [facility]EMAT[facility] MCV 90.4 fL 80.0 - 02/03 The 98.0 [facility]EMAT[facility] RDW 14.3 % 11.5 - 02/03 The 14.5 [facility]EMAT[facility] MCH 31.2 pg 27.0 - 02/03 The 31.0 [facility] URINE AND UA Ketones Negative Negative 02/03 [facility] mg/dL mg/dL [facility] URINE AND UA Bili Negative Negative 02/03 [facility] *NA* (02/02/17 11:14 PM) URINE AND UA Sq Epi Many /LPF Few /LPF 02/03 [facility] URINE AND UA Nitrite Negative Negative 02/03 [facility] (02/02/17 11:14 PM) URINE AND UA Leuk Est Small Negative 02/03 [facility] *ABN* (02/02/17 11:14 PM) URINE AND UA Blood Negative Negative 02/03 [facility] (02/02/17 11:14 PM) URINE AND UA <=1.0 0.1 - 1.0 02/03 [facility] Urobilinogen mg/dL [facility] URINE AND UA Mucus Few /LPF None Seen 02/03 [facility] /LPF /2016 [facility] URINE AND UA RBC null 0 - 2 02/03 [facility] URINE AND UA WBC 2 /HPF 0 - 5 02/03 [facility] URINE AND UA Color Light Yellow Yellow 02/03 [facility] *NA* (02/02/17 11:14 PM) URINE AND UA Protein Negative Negative 02/03 [facility] mg/dL mg/dL /2016 [facility] URINE AND UA pH 7.0 5.0 - 8.0 02/03 [facility] URINE AND UA Spec Grav 1.005 <=1.030 02/03 [facility] URINE AND UA Turbidity Slight Clear 02/03 [facility] *ABN* (02/02/17 11:14 PM) URINE AND UA Glucose Negative Negative 02/03 [facility] mg/dL mg/dL [place] Retroperit Retroperiton Exam: Renal Ultrasound 02/03 [facility] [place] Complete US US Clinical Indication: Flank pain. Read by: Gianluca Reina MD Dictated Date/time: 02/03/17 02:25 Electronically Signed by: Gianluca Reina MD 02/03/17 02:28 FINAL REPORT Technique: Renal ultrasound is performed. Findings: The bilateral kidneys are normal. There is no hydronephrosis or nephrolithiasis. No solid or cystic renal lesions are seen. Normal bilateral renal parenchymal echogenicity is seen. Pre-void bladder is distended. Post- void bladder is unremarkable. Right kidney measures 11.8 x 5.3 x 4.9 cm. Left kidney measures 12.5 x 5.1 x 4.4 cm. Pre-void bladder volume equals 387 cc. Post-void bladder volume equals 41 cc. Impression: Negative exam. BLOOD BANK ABO/Rh B POS 01/13 The RESULTS [place] CHEM PANEL Globulin 3.5 g/dL 2.7 - 4.2 01/13 The [place] CHEM PANEL AGAP 12.6 meq/L 10.0 - 01/13 The 20.0 [place] CHEM PANEL B/C Ratio 6 6 - 25 01/13 [place] CHEM PANEL A/G Ratio 0.9 0.7 - 1.6 01/13 The [place] CHEM PANEL eGFR 140 01/13 Result Comment: The eGFR is calculated using the CKD-EPI formula. In most young, healthy individuals the eGFR will be >90 mL/ min/1.73m2. The eGFR declines with age. An eGFR of 60-89 may be normal in The mL/min/1.7 some populations, particularly the elderly, for whom the CKD-EPI formula has not been extensively validated. Use of the eGFR is not recommended in the following populations: [address] Individuals with unstable creatinine concentrations, including patients and those with serious co-morbid conditions. Patients with extremes in muscle mass or diet. The data above are obtained from the National Kidney Disease Education Program (NKDEP) which additionally recommends that when the eGFR is used in patients with extremes of body mass index for purposes of drug dosing, the eGFR should be multiplied by the estimated BMI. CHEM PANEL Glucose Lvl 91 mg/dL 70 - 99 01/13 The [place] CHEM PANEL Chloride Lvl 109 meq/L 95 - 109 01/13 The [place] CHEM PANEL ALT 14 unit/L 0 - 65 01/13 The [place] CHEM PANEL Albumin Lvl 3.1 g/dL 3.5 - 5.0 01/13 The [place] CHEM PANEL Alk Phos 57 unit/L 39 - 136 01/13 The [place] CHEM PANEL Bili Total 0.3 mg/dL 0.2 - 1.3 01/13 The [place] CHEM PANEL AST 17 unit/L 0 - 37 01/13 The [place] CHEM PANEL Creatinine 0.51 mg/dL 0.50 - 01/13 The Lvl 1.40 [place] CHEM PANEL Potassium 3.6 meq/L 3.5 - 5.1 01/13 The Lvl [place] CHEM PANEL BUN 3 mg/dL 7 - 22 01/13 The [place] CHEM PANEL Sodium Lvl 142 meq/L 135 - 145 01/13 The [place] CHEM PANEL CO2 24 meq/L 24 - 32 01/13 The [place] CHEM PANEL Calcium Lvl 8.3 mg/dL 8.5 - 10.5 01/13 The [place] CHEM PANEL Total 6.6 g/dL 6.4 - 8.4 01/13 The Protein [place] ENDOCRINOL hCG Tot [id number] 01/13 The OGY mIU/mL [place] HEMATOLOGY Eosinophils 0.1 K/CMM 0.0 - 0.5 01/13 The # [place] HEMATOLOGY Monocytes # 0.4 K/CMM 0.0 - 0.8 01/13 The [place] HEMATOLOGY Lymphocytes 2.3 K/CMM 1.0 - 5.5 01/13 The # [place] HEMATOLOGY Eosinophils 1.8 % 0.0 - 4.0 01/13 The [place] HEMATOLOGY Segs-Bands # 3.4 K/CMM 1.5 - 8.1 01/13 The [place] HEMATOLOGY Basophils 0.5 % 0.0 - 1.0 01/13 The [place] HEMATOLOGY Segs 53.9 % 45.0 - 01/13 The 75.0 [place] HEMATOLOGY Monocytes 6.9 % 2.0 - 12.0 01/13 The [place] HEMATOLOGY Lymphocytes 36.9 % 20.0 - 01/13 The 40.0 [place] HEMATOLOGY Hgb 11.0 g/dL 12.0 - 01/13 The 16.0 [place] HEMATOLOGY Hct 31.6 % 36.0 - 01/13 The 48.0 [place] HEMATOLOGY MCV 87.3 fL 80.0 - 01/13 The 98.0 [place] HEMATOLOGY WBC 6.3 K/CMM 3.7 - 10.4 01/13 The [place] HEMATOLOGY RBC 3.62 M/CMM 4.20 - 01/13 The 5.40 [place] HEMATOLOGY Platelet 203 K/CMM 133 - 450 01/13 The [place] HEMATOLOGY RDW 15.1 % 11.5 - 01/13 The 14.5 [place] HEMATOLOGY MCH 30.4 pg 27.0 - 01/13 The 31.0 [place] HEMATOLOGY MCHC 34.8 g/dL 32.0 - 01/13 The 36.0 [place] HEMATOLOGY MPV 7.0 fL 7.4 - 10.4 01/13 The [place] URINE AND UA Leuk Est Small Negative 01/13 The STOOL [place] *ABN* (01/13/17 5:26 AM) URINE AND UA Nitrite Negative Negative 01/13 The STOOL [place] (01/13/17 5:26 AM) URINE AND UA Blood Negative Negative 01/13 The STOOL [place] (01/13/17 5:26 AM) URINE AND UA Bili Negative Negative 01/13 The STOOL [place] *NA* (01/13/17 5:26 AM) URINE AND UA Ketones Negative Negative 01/13 The STOOL mg/dL mg/dL [place] URINE AND UA 2.0 mg/dL 0.1 - 1.0 01/13 The STOOL Urobilinogen /2016 [place] URINE AND UA Color Yellow Yellow 01/13 The STOOL [place] *NA* (01/13/17 5:26 AM) URINE AND UA WBC 5 /HPF 0 - 5 01/13 The STOOL [place] URINE AND UA Mucus Few /LPF None Seen 01/13 The STOOL /LPF /2016 [place] URINE AND UA RBC 1 /HPF 0 - 2 01/13 The STOOL [place] URINE AND UA Sq Epi Many /LPF Few /LPF 01/13 The STOOL [place] URINE AND UA pH 6.0 5.0 - 8.0 01/13 The STOOL [place] URINE AND UA Spec Grav 1.014 <=1.030 01/13 The STOOL [place] URINE AND UA Turbidity Slight Clear 01/13 The STOOL [place] *ABN* (01/13/17 5:26 AM) URINE AND UA Glucose Negative Negative 01/13 The STOOL mg/dL mg/dL [place] URINE AND UA Protein 10 mg/dL Negative 01/13 The STOOL mg/dL [place] Patient Name: CELESTINE CAR 01/13 - The age age /2016 - [place] : 1995; Age: 21 years y/o Female MR: [id number] Read by: Khoa Wadsworth MD Dictated Date/time: 01/13/17 06:13 Electronically Signed by: Khoa Wadsworth MD 01/13/17 06:22 FINAL REPORT Study: age 201/13/2017 5:21 AM [employer] [place] Ordering Physician: DAMIAN Christopher Comparison: None Clinical Indication: Abdominal pain and cramping; M[place] fetus in variable presentation with posterior placenta is noted. Adequate amniotic fluid is noted. The DWIGHT is 10.2 cm. Dorsal uterine contraction. BPD 3.8 cm 17 weeks 4 days HC 14.1 cm 17 weeks 4 days AC 11 cm 17 weeks FL 2.4 cm 17 weeks 2 days The composite gestational age by ultrasound is 17 weeks 3 days. EDC by ultrasound is 06/20/2017. Estimated weight is 180 g. heart rate is 129 beats per minute. The cervical length is 3.2 cm. anatomic detail is limited by early gestational age. The technologist indicated a possible marginal placental cord insertion. A follow- up exam in 3 weeks to evaluate the anatomy and reevaluate the placental cord insertion is recommended. SL: JESSE BLOOD BANK ABO/Rh B POS 01/02 The RESULTS [place] BLOOD BANK Antibody Negative 01/02 The RESULTS Scrn [place] (01/01/17 6:38 PM) CHEM PANEL Lipase Lvl 121 unit/L 73 - 393 01/02 [place] ELECTROLYT AGAP 9.3 meq/L 10.0 - 01/02 The ES 20.0 [place] ELECTROLYT B/C Ratio 4 6 - 25 01/02 The [place] ELECTROLYT Globulin 3.8 g/dL 2.7 - 4.2 01/02 The [place] ELECTROLYT A/G Ratio 0.9 0.7 - 1.6 01/02 The [place] ELECTROLYT eGFR 142 01/02 Result Comment: The eGFR is calculated using the CKD-EPI formula. In most young, healthy individuals the eGFR will be >90 mL/ min/1.73m2. The eGFR declines with age. An eGFR of 60-89 may be normal in The mL/min/1.7 /2016 some populations, particularly the elderly, for whom the CKD-EPI formula has not been extensively validated. Use of the eGFR is not recommended in the following populations: [place] 3m2 Individuals with unstable creatinine concentrations, including patients and those with serious co-morbid conditions. Patients with extremes in muscle mass or diet. The data above are obtained from the National Kidney Disease Education Program (NKDEP) which additionally recommends that when the eGFR is used in patients with extremes of body mass index for purposes of drug dosing, the eGFR should be multiplied by the estimated BMI. ELECTROLYT Potassium 3.3 meq/L 3.5 - 5.1 01/02 MH The ES Lvl /2016 [place] ELECTROLYT Sodium Lvl 138 meq/L 135 - 145 01/02 MH The [place] ELECTROLYT AST 13 unit/L 0 - 37 01/02 MH The [place] ELECTROLYT Total 7.3 g/dL 6.4 - 8.4 01/02 MH The ES Protein [place] ELECTROLYT Albumin Lvl 3.5 g/dL 3.5 - 5.0 01/02 MH The [place] ELECTROLYT ALT 16 unit/L 0 - 65 01/02 MH The [place] ELECTROLYT Calcium Lvl 8.6 mg/dL 8.5 - 10.5 01/02 MH The [place] ELECTROLYT Alk Phos 70 unit/L 39 - 136 01/02 MH The [place] ELECTROLYT Bili Total 0.2 mg/dL 0.2 - 1.3 01/02 MH The [place] ELECTROLYT Chloride Lvl 107 meq/L 95 - 109 01/02 MH The [place] ELECTROLYT CO2 25 meq/L 24 - 32 01/02 MH The [place] ELECTROLYT Creatinine 0.49 mg/dL 0.50 - 01/02 MH The ES Lvl 1.40 [place] ELECTROLYT Glucose Lvl 90 mg/dL 70 - 99 01/02 MH The [place] ELECTROLYT BUN 2 mg/dL 7 - 22 01/02 MH The [place] [id number] 01/02 MH The OGY mIU/mL [place] HEMATOLOGY RDW 15.3 % 11.5 - 01/02 MH The 14.5 [place] HEMATOLOGY Platelet 190 K/CMM 133 - 450 01/02 MH The [place] HEMATOLOGY MCV 88.6 fL 80.0 - 01/02 MH The 98.0 [place] HEMATOLOGY MCH 30.0 pg 27.0 - 01/02 MH The 31.0 [place] HEMATOLOGY MCHC 33.9 g/dL 32.0 - 01/02 MH The 36.0 [place] HEMATOLOGY RBC 3.88 M/CMM 4.20 - 01/02 MH The 5.40 [place] HEMATOLOGY Hgb 11.6 g/dL 12.0 - 01/02 The 16.0 [place] HEMATOLOGY Hct 34.4 % 36.0 - 01/02 The 48.0 [place] HEMATOLOGY WBC 7.1 K/CMM 3.7 - 10.4 01/02 The [place] HEMATOLOGY MPV 6.9 fL 7.4 - 10.4 01/02 The [place] HEMATOLOGY Eosinophils 0.2 K/CMM 0.0 - 0.5 01/02 The # [place] HEMATOLOGY Monocytes # 0.4 K/CMM 0.0 - 0.8 01/02 The [place] HEMATOLOGY Segs-Bands # 4.5 K/CMM 1.5 - 8.1 01/02 The [place] HEMATOLOGY Lymphocytes 2.0 K/CMM 1.0 - 5.5 01/02 The # [place] HEMATOLOGY Monocytes 5.2 % 2.0 - 12.0 01/02 The [place] HEMATOLOGY Eosinophils 2.9 % 0.0 - 4.0 01/02 The [place] HEMATOLOGY Basophils 0.5 % 0.0 - 1.0 01/02 The [place] HEMATOLOGY Segs 63.1 % 45.0 - 01/02 The 75.0 [place] HEMATOLOGY Lymphocytes 28.3 % 20.0 - 01/02 The 40.0 [place] URINE AND UA <=1.0 0.1 - 1.0 01/02 The STOOL Urobilinogen mg/dL [place] URINE AND UA Turbidity Slight Clear 01/02 The [place] *ABN* (01/01/17 6:10 PM) URINE AND UA pH 7.0 5.0 - 8.0 01/02 The [place] URINE AND UA Spec Grav 1.004 <=1.030 01/02 The [place] URINE AND UA Color Light Yellow Yellow 01/02 The [place] *NA* (01/01/17 6:10 PM) URINE AND UA WBC 4 /HPF 0 - 5 01/02 The [place] URINE AND UA Sq Epi Many /LPF Few /LPF 01/02 The [place] URINE AND UA RBC 2 /HPF 0 - 2 01/02 The STOOL [place] URINE AND UA Amorph Occasional None Seen 01/02 The STOOL Lisa /HPF /HPF /2016 [place] URINE AND UA Leuk Est Trace Negative 01/02 The STOOL [place] *ABN* (01/01/17 6:10 PM) URINE AND UA Blood Negative Negative 01/02 The STOOL [place] (01/01/17 6:10 PM) URINE AND UA Nitrite Negative Negative 01/02 The STOOL [place] (01/01/17 6:10 PM) URINE AND UA Bili Negative Negative 01/02 The [place] *NA* (01/01/17 6:10 PM) URINE AND UA Glucose Negative Negative 01/02 The STOOL mg/dL mg/dL [place] URINE AND UA Ketones Negative Negative 01/02 The STOOL mg/dL mg/dL [place] URINE AND UA Protein Negative Negative 01/02 The STOOL mg/dL mg/dL [place] Retroperit Retroperiton Clinical Indication: Abdominal pain, acute. 01/01 [facility] US US Comparison: None. Read by: Kevan Ricardo MD Dictated Date/time: 01/01/17 19:26 Electronically Signed by: Kevan Ricardo MD 01/01/17 19:27 FINAL REPORT TECHNIQUE: Grayscale and color Doppler ultrasound imaging of the kidneys and bladder performed. FINDINGS: KIDNEY: The right kidney measures 14.4 x 5.0 x 6.0 cm. The left kidney measures 13.6 x 5.7 x 5.2 cm. Normal shape, contour, and position. Cortices are normal in thickness and the cortico-medullary differentiation is maintained. No hydronephrosis. No echogenic foci/nephrolithiasis. No abnormal perinephric collections. BLADDER: Minimal hypoechoic layering debris in the bladder. Calculated bladder volume 337 mL IMPRESSION: 1. Mild layering hypoechoic debris in the bladder. 2. Normal sonographic appearance of the kidneys without stone or hydronephrosis. SL: [id number] Clinical Indication: 21-year-old female patient presenting with pelvic pain. 01/01 The age age /2016 [facility] Comparison: None Read by: Matthew Perez MD Dictated Date/time: 01/01/17 18:22 IMPRESSION: Electronically Signed by: Matthew Perez MD 01/01/17 18:23 FINAL REPORT Please see the computer generated obstetrical report for this examination. This study was read, and the report is in the EMR, under ultrasound. SL: [id number] CHEM PANEL Magnesium 1.7 mg/dL 1.8 - 2.4 12/04 The Lvl [place] ELECTROLYT AGAP 10.7 meq/L 10.0 - 12/04 The ES 20.0 [place] ELECTROLYT CO2 26 meq/L 24 - 32 12/04 The [place] ELECTROLYT Calcium Lvl 8.4 mg/dL 8.5 - 10.5 12/04 The [place] ELECTROLYT Chloride Lvl 106 meq/L 95 - 109 12/04 The [place] ELECTROLYT Potassium 3.7 meq/L 3.5 - 5.1 12/04 The ES Lvl [place] ELECTROLYT eGFR 145 12/04 Result Comment: The eGFR is calculated using the CKD-EPI formula. In most young, healthy individuals the eGFR will be >90 mL/ min/1.73m2. The eGFR declines with age. An eGFR of 60-89 may be normal in The mL/min/1.7 /2016 some populations, particularly the elderly, for whom the CKD-EPI formula has not been extensively validated. Use of the eGFR is not recommended in the following populations: [place] 3m2 Individuals with unstable creatinine concentrations, including patients and those with serious co-morbid conditions. Patients with extremes in muscle mass or diet. The data above are obtained from the National Kidney Disease Education Program (NKDEP) which additionally recommends that when the eGFR is used in patients with extremes of body mass index for purposes of drug dosing, the eGFR should be multiplied by the estimated BMI. ELECTROLYT Glucose Lvl 97 mg/dL 70 - 99 12/04 MH The [place] ELECTROLYT Creatinine 0.46 mg/dL 0.50 - 12/04 MH The ES Lvl 1.40 [place] ELECTROLYT BUN 3 mg/dL 7 - 22 12/04 The [place] ELECTROLYT Sodium Lvl 139 meq/L 135 - 145 12/04 MH The ES [place] HEMATOLOGY Segs 64.2 % 45.0 - 12/04 MH The 75.0 [place] HEMATOLOGY Eosinophils 3.9 % 0.0 - 4.0 12/04 The [place] HEMATOLOGY Monocytes 7.2 % 2.0 - 12.0 12/04 The [place] HEMATOLOGY Basophils # 0.1 K/CMM 0.0 - 0.2 12/04 The [place] HEMATOLOGY Eosinophils 0.2 K/CMM 0.0 - 0.5 12/04 MH The # [place] HEMATOLOGY Monocytes # 0.4 K/CMM 0.0 - 0.8 12/04 The [place] HEMATOLOGY Lymphocytes 1.2 K/CMM 1.0 - 5.5 12/04 The [place] HEMATOLOGY Segs-Bands # 3.3 K/CMM 1.5 - 8.1 12/04 The [place] HEMATOLOGY Basophils 1.0 % 0.0 - 1.0 12/04 The [place] HEMATOLOGY Lymphocytes 23.7 % 20.0 - 12/04 The 40.0 [place] HEMATOLOGY MCH 29.8 pg 27.0 - 12/04 The 31.0 [place] HEMATOLOGY Hct 34.7 % 36.0 - 12/04 The 48.0 [place] HEMATOLOGY MCV 87.5 fL 80.0 - 12/04 MH The 98.0 [place] HEMATOLOGY Hgb 11.8 g/dL 12.0 - 12/04 The 16.0 [place] HEMATOLOGY RDW 15.0 % 11.5 - 12/04 The 14.5 [place] HEMATOLOGY Platelet 164 K/CMM 133 - 450 12/04 The [place] HEMATOLOGY MCHC 34.0 g/dL 32.0 - 12/04 The 36.0 [place] HEMATOLOGY MPV 7.4 fL 7.4 - 10.4 12/04 The [place] HEMATOLOGY WBC 5.1 K/CMM 3.7 - 10.4 12/04 The [place] HEMATOLOGY RBC 3.96 M/CMM 4.20 - 12/04 The 5.40 [place] CHEM PANEL Magnesium 1.9 mg/dL 1.8 - 2.4 12/03 The Lv [place] CHEM PANEL eGFR 159 12/03 Result Comment: The eGFR is calculated using the CKD-EPI formula. In most young, healthy individuals the eGFR will be >90 mL/ min/1.73m2. The eGFR declines with age. An eGFR of 60-89 may be normal in The mL/min/1.7 some populations, particularly the elderly, for whom the CKD-EPI formula has not been extensively validated. Use of the eGFR is not recommended in the following populations: [address] Individuals with unstable creatinine concentrations, including patients and those with serious co-morbid conditions. Patients with extremes in muscle mass or diet. The data above are obtained from the National Kidney Disease Education Program (NKDEP) which additionally recommends that when the eGFR is used in patients with extremes of body mass index for purposes of drug dosing, the eGFR should be multiplied by the estimated BMI. CHEM PANEL Calcium Lvl 8.3 mg/dL 8.5 - 10.5 12/03 [place] CHEM PANEL AGAP 9.3 meq/L 10.0 - 12/03 The 20.0 [place] CHEM PANEL Sodium Lvl 140 meq/L 135 - 145 12/03 [place] CHEM PANEL Chloride Lvl 109 meq/L 95 - 109 12/03 The [place] CHEM PANEL CO2 26 meq/L 24 - 32 12/03 [place] CHEM PANEL Potassium 4.3 meq/L 3.5 - 5.1 12/03 The Lv [place] CHEM PANEL Creatinine 0.34 mg/dL 0.50 - 12/03 The Lvl 1.40 [place] CHEM PANEL Glucose Lvl 97 mg/dL 70 - 99 12/03 [place] CHEM PANEL BUN 3 mg/dL 7 - 22 12/03 The [place] HEMATOLOGY Lymphocytes 1.7 K/CMM 1.0 - 5.5 12/03 MH The # [place] HEMATOLOGY Monocytes # 0.4 K/CMM 0.0 - 0.8 12/03 [place] HEMATOLOGY Eosinophils 0.2 K/CMM 0.0 - 0.5 12/03 The # [place] HEMATOLOGY Monocytes 8.2 % 2.0 - 12.0 12/03 The [place] HEMATOLOGY Basophils 0.8 % 0.0 - 1.0 12/03 The [place] HEMATOLOGY Segs-Bands # 2.6 K/CMM 1.5 - 8.1 12/03 The [place] HEMATOLOGY Segs 52.7 % 45.0 - 12/03 The 75.0 [place] HEMATOLOGY Lymphocytes 35.0 % 20.0 - 12/03 The 40.0 [place] HEMATOLOGY Eosinophils 3.3 % 0.0 - 4.0 12/03 The [place] HEMATOLOGY WBC 5.0 K/CMM 3.7 - 10.4 12/03 The [place] HEMATOLOGY Hgb 11.4 g/dL 12.0 - 12/03 The 16.0 [place] HEMATOLOGY MCV 87.9 fL 80.0 - 12/03 The 98.0 [place] HEMATOLOGY RBC 3.84 M/CMM 4.20 - 12/03 The 5.40 [place] HEMATOLOGY Hct 33.8 % 36.0 - 12/03 The 48.0 [place] HEMATOLOGY MCHC 33.9 g/dL 32.0 - 12/03 The 36.0 [place] HEMATOLOGY Platelet 220 K/CMM 133 - 450 12/03 The [place] HEMATOLOGY MCH 29.8 pg 27.0 - 12/03 The 31.0 [place] HEMATOLOGY RDW 15.0 % 11.5 - 12/03 The 14.5 [place] HEMATOLOGY MPV 8.0 fL 7.4 - 10.4 12/03 [place] Chest 2 Chest 2 Clinical Indication: Coughing 12/03 - [facility] - [place] Comparison: July 23, 2016 Read by: Neri Em MD Dictated Date/time: 12/03/16 16:46 FINDINGS: Electronically Signed by: Neri Em MD 12/03/16 16:46 FINAL REPORT The PA and lateral chest radiographs shows normal lung volumes without interstitial or airspace opacities, pleural effusions or pneumothorax. The heart size and pulmonary vasculature are normal. The trachea is midline. There are no clinically significant osseous abnormalities noted. IMPRESSION: No chest radiographic evidence of acute cardiopulmonary disease. SL: [id number] CHEM PANEL Magnesium 1.5 mg/dL 1.8 - 2.4 12/03 The Lvl [place] ELECTROLYT Potassium 3.3 meq/L 3.5 - 5.1 12/03 The ES Lvl [place] URINE AND UA RBC null 0 - 2 12/03 The STOOL [place] URINE AND UA <=1.0 0.1 - 1.0 12/03 The STOOL Urobilinogen mg/dL [place] URINE AND UA Bacteria Few /HPF None Seen 12/03 The STOOL /HPF /2016 [place] URINE AND UA Bili Negative Negative 12/03 The STOOL [place] *NA* (12/02/16 7:36 PM) URINE AND UA Nitrite Negative Negative 12/03 The [place] (12/02/16 7:36 PM) URINE AND UA Sq Epi Many /LPF Few /LPF 12/03 The [place] URINE AND UA Leuk Est Moderate Negative 12/03 The [place] *ABN* (12/02/16 7:36 PM) URINE AND UA WBC 7 /HPF 0 - 5 12/03 The [place] URINE AND UA Blood Large Negative 12/03 The [place] *ABN* (12/02/16 7:36 PM) URINE AND UA Glucose Negative Negative 12/03 The STOOL mg/dL mg/dL /2016[place] URINE AND UA Ketones Negative Negative 12/03 The STOOL mg/dL mg/dL /2016[place] URINE AND UA Protein 20 mg/dL Negative 12/03 The STOOL mg/dL [facility] URINE AND UA Color Yellow Yellow 12/03 The [place] *NA* (12/02/16 7:36 PM) URINE AND UA Spec Grav 1.004 <=1.030 12/03 The [place] URINE AND UA Turbidity Slight Clear 12/03 The [place] *ABN* (12/02/16 7:36 PM) URINE AND UA pH 7.0 5.0 - 8.0 12/03 The [place] BLOOD BANK ABO/Rh B POS 12/03 The RESULTS [place] CHEM PANEL eGFR 139 12/03 Result Comment: The eGFR is calculated using the CKD-EPI formula. In most young, healthy individuals the eGFR will be >90 mL/ min/1.73m2. The eGFR declines with age. An eGFR of 60-89 may be normal in The mL/min/1.7 /2016 some populations, particularly the elderly, for whom the CKD-EPI formula has not been extensively validated. Use of the eGFR is not recommended in the following populations: [address] Individuals with unstable creatinine concentrations, including patients and those with serious co-morbid conditions. Patients with extremes in muscle mass or diet. The data above are obtained from the National Kidney Disease Education Program (NKDEP) which additionally recommends that when the eGFR is used in patients with extremes of body mass index for purposes of drug dosing, the eGFR should be multiplied by the estimated BMI. CHEM PANEL Total 7.1 g/dL 6.4 - 8.4 12/03 The [place] CHEM PANEL Alk Phos 70 unit/L 39 - 136 12/03 [place] CHEM PANEL Calcium Lvl 8.9 mg/dL 8.5 - 10.5 12/03 [place] CHEM PANEL Albumin Lvl 3.7 g/dL 3.5 - 5.0 12/03 [place] CHEM PANEL Globulin 3.4 g/dL 2.7 - 4.2 12/03 The [place] CHEM PANEL B/C Ratio 10 6 - 25 12/03 [place] CHEM PANEL Bili Total 0.2 mg/dL 0.2 - 1.3 12/03 [place] CHEM PANEL AST 16 unit/L 0 - 37 12/03 [place] CHEM PANEL ALT 23 unit/L 0 - 65 12/03 [place] CHEM PANEL A/G Ratio 1.1 0.7 - 1.6 12/03 [place] CHEM PANEL CO2 26 meq/L 24 - 32 12/03 [place] CHEM PANEL AGAP 10.0 meq/L 10.0 - 12/03 The 20.0 [place] CHEM PANEL Creatinine 0.52 mg/dL 0.50 - 12/03 MH The Lvl 1.40 [place] CHEM PANEL Sodium Lvl 140 meq/L 135 - 145 12/03 [place] CHEM PANEL Chloride Lvl 107 meq/L 95 - 109 12/03 [place] CHEM PANEL BUN 5 mg/dL 7 - 22 12/03 The [place] CHEM PANEL Glucose Lvl 84 mg/dL 70 - 99 12/03 The [place] [id number] 12/03 The OGY mIU/mL [place] HEMATOLOGY Platelet 180 K/CMM 133 - 450 12/03 The [place] HEMATOLOGY MPV 7.0 fL 7.4 - 10.4 12/03 The [place] HEMATOLOGY RDW 14.6 % 11.5 - 12/03 The 14.5 [place] HEMATOLOGY MCHC 33.9 g/dL 32.0 - 12/03 The 36.0 [place] HEMATOLOGY MCH 29.4 pg 27.0 - 12/03 The 31.0 [place] HEMATOLOGY Hct 34.7 % 36.0 - 12/03 MH The 48.0 [place] HEMATOLOGY MCV 86.8 fL 80.0 - 12/03 The 98.0 [place] HEMATOLOGY Hgb 11.8 g/dL 12.0 - 12/03 The 16.0 [place] HEMATOLOGY WBC 5.8 K/CMM 3.7 - 10.4 12/03 The [place] HEMATOLOGY RBC 4.00 M/CMM 4.20 - 12/03 The 5.40 [place] HEMATOLOGY Segs-Bands # 3.1 K/CMM 1.5 - 8.1 12/03 The [place] HEMATOLOGY Lymphocytes 2.1 K/CMM 1.0 - 5.5 12/03 The # [place] HEMATOLOGY Monocytes # 0.5 K/CMM 0.0 - 0.8 12/03 The [place] HEMATOLOGY Eosinophils 0.1 K/CMM 0.0 - 0.5 12/03 MH The # [place] HEMATOLOGY Segs 52.6 % 45.0 - 12/03 MH The 75.0 [place] HEMATOLOGY Lymphocytes 36.2 % 20.0 - 12/03 MH The 40.0 [place] HEMATOLOGY Monocytes 8.0 % 2.0 - 12.0 12/03 The [place] HEMATOLOGY Eosinophils 2.5 % 0.0 - 4.0 12/03 The [place] HEMATOLOGY Basophils 0.7 % 0.0 - 1.0 12/03 MH [place] Preg < Preg < 14wks Clinical Indication: Vaginal Bleeding; . 12/02 - The 14wks Single gest /2016 - [place] Single w Transvag Comparison: Ultrasound 11/26/2016 gest w US Transvag LMP: 09/17/2017 Read by: Marcelo Huerta MD Dictated Date/time: 12/02/16 19:23 Electronically Signed by: Marcelo Huerta MD 12/02/16 19:44 FINAL REPORT TECHNIQUE: Pelvic ultrasound was performed with grayscale, color Doppler, spectral Doppler and M-mode Doppler imaging. Transabdominal and transvaginal technique performed. FINDINGS: The pelvic transabdominal ultrasound images show that the anteverted uterus measures 9.2 x 9.5 x 9.2 cm. The pelvic transvaginal images show a single intrauterine with an ovoid gestational sac. The yolk sac is seen. Mean gestational sac diameter measures 4.02 cm with an estimated gestational age of 9 weeks 5 days. [place]-rump length measures 4.25 cm with an estimated gestational age of 11 weeks 1 day. Cardiac activity is present with regular heart rate of 160-172 bpm. There are no subchorionic hemorrhages noted. The previously noted subchorionic hemorrhage is no longer appreciated. The right ovary measures 3.4 x 2.0 x 2.0 cm. The left ovary measures 2.8 x 2.4 x 2.0 cm. There is normal ovarian contour and morphology. There are no adnexal masses. The Doppler images show normal arterial and venous right and left ovarian blood flow. There is no free fluid in the cul-de-sac. IMPRESSION: 1. Single live intrauterine with estimated gestational age of 10 weeks 3 days . [facility] by ultrasound is 06/24/2017. 2. cardiac activity is present. 3. No sonographic evidence of hemorrhage. 4. Followup may be performed with short interval sonography as clinically warranted. 5. LMP dating: estimated gestational age 10 weeks 6 days and [place] 2016 based on LMP SL: JCHILD-PC CHEM PANEL Phosphorus 3.1 mg/dL 2.5 - 4.5 11/28 [place] CHEM PANEL Magnesium 1.8 mg/dL 1.8 - 2.4 11/28 The Lvl [place] ELECTROLYT AGAP 12.5 meq/L 10.0 - 11/28 The 20. [place] ELECTROLYT eGFR 157 11/28 Result Comment: The eGFR is calculated using the CKD-EPI formula. In most young, healthy individuals the eGFR will be >90 mL/ min/1.73m2. The eGFR declines with age. An eGFR of 60-89 may be normal in The mL/min/1.7 some populations, particularly the elderly, for whom the CKD-EPI formula has not been extensively validated. Use of the eGFR is not recommended in the following populations: [place] 3m2 Individuals with unstable creatinine concentrations, including patients and those with serious co-morbid conditions. Patients with extremes in muscle mass or diet. The data above are obtained from the National Kidney Disease Education Program (NKDEP) which additionally recommends that when the eGFR is used in patients with extremes of body mass index for purposes of drug dosing, the eGFR should be multiplied by the estimated BMI. ELECTROLYT Creatinine 0.36 mg/dL 0.50 - 11/28 The Lvl 1. [place] ELECTROLYT Chloride Lvl 108 meq/L 95 - 109 11/28 The [place] ELECTROLYT Potassium 3.5 meq/L 3.5 - 5.1 11/28 The [place] ELECTROLYT Sodium Lvl 141 meq/L 135 - 145 11/28 The [place] ELECTROLYT CO2 24 meq/L 24 - 32 11/28 The [place] ELECTROLYT Calcium Lvl 8.1 mg/dL 8.5 - 10.5 11/28 The [place] ELECTROLYT BUN 3 mg/dL 7 - 22 11/28 The [place] ELECTROLYT Glucose Lvl 94 mg/dL 70 - 99 11/28 The [place] HEMATOLOGY RBC 3.77 M/CMM 4.20 - 11/28 The 5.40 [place] HEMATOLOGY Hgb 11.2 g/dL 12.0 - 11/28 The 16. [place] HEMATOLOGY MCH 29.8 pg 27.0 - 11/28 The 31. [place] HEMATOLOGY Hct 32.8 % 36.0 - 11/28 The 48. [place] HEMATOLOGY MCV 87.2 fL 80.0 - 11/28 The 98.0 [place] HEMATOLOGY WBC 5.5 K/CMM 3.7 - 10.4 11/28 The [place] HEMATOLOGY MPV 7.5 fL 7.4 - 10.4 11/28 The [place] HEMATOLOGY RDW 14.2 % 11.5 - 11/28 The 14.5 [place] HEMATOLOGY MCHC 34.2 g/dL 32.0 - 11/28 The 36.0 [place] HEMATOLOGY Platelet 185 K/CMM 133 - 450 11/28 The [place] HEMATOLOGY Lymphocytes 2.1 K/CMM 1.0 - 5.5 11/28 The # [place] HEMATOLOGY Monocytes # 0.4 K/CMM 0.0 - 0.8 11/28 The [place] HEMATOLOGY Basophils 0.4 % 0.0 - 1.0 11/28 The [place] HEMATOLOGY Segs-Bands # 3.0 K/CMM 1.5 - 8.1 11/28 The [place] HEMATOLOGY Monocytes 7.5 % 2.0 - 12.0 11/28 The [place] HEMATOLOGY Segs 53.9 % 45.0 - 11/28 The 75.0 [place] HEMATOLOGY Eosinophils 0.5 % 0.0 - 4.0 11/28 [place] HEMATOLOGY Lymphocytes 37.7 % 20.0 - 11/28 The 40.0 [place] Retroperit Retroperiton Clinical Indication: Back pain; 11/27 - [facility] /2016 - [facility] Comparison: August 21, 2016 Read by: Juma Wheeler MD Dictated Date/time: 11/27/16 12:41 TECHNIQUE: Electronically Signed by: Juma Wheeler MD 11/27/16 12:43 FINAL REPORT Multiple longitudinal and transverse real time sonographic images of the kidneys and urinary bladder are obtained. FINDINGS: KIDNEY: The right kidney measures 9.9 x 5.0 x 6.3 cm. The left kidney measures 12.4 x 3.8 x 4.2 cm. The right renal cortex measures 1.8 cm in thickness. The left renal cortex measures 1.0 cm in thickness. The kidneys are normal in size, shape, contour, and position. The cortices are normal in thickness and the corticomedulluary differentiation is maintained. There is no hydronephrosis, nephrolithiasis, or abnormal perinephric collections. BLADDER: Scanning through the pelvis reveals the bladder to be partially distended with anechoic urine. ASCITES: No ascites noted. IMPRESSION: 1. Unremarkable renal U/S SL: [id number] CHEM PANEL Magnesium 1.7 mg/dL 1.8 - 2.4 11/27 The [place] ELECTROLYT AGAP 11.5 meq/L 10.0 - 11/27 The ES 20.0 [place] ELECTROLYT Calcium Lvl 8.2 mg/dL 8.5 - 10.5 11/27 The [place] ELECTROLYT CO2 23 meq/L 24 - 32 11/27 The [place] ELECTROLYT Chloride Lvl 109 meq/L 95 - 109 11/27 The [place] ELECTROLYT Sodium Lvl 140 meq/L 135 - 145 11/27 The [place] ELECTROLYT Potassium 3.5 meq/L 3.5 - 5.1 11/27 The [place] ELECTROLYT eGFR 148 11/27 Result Comment: The eGFR is calculated using the CKD-EPI formula. In most young, healthy individuals the eGFR will be >90 mL/ min/1.73m2. The eGFR declines with age. An eGFR of 60-89 may be normal in The mL/min/1. some populations, particularly the elderly, for whom the CKD-EPI formula has not been extensively validated. Use of the eGFR is not recommended in the following populations: [place] 3m2 Individuals with unstable creatinine concentrations, including patients and those with serious co-morbid conditions. Patients with extremes in muscle mass or diet. The data above are obtained from the National Kidney Disease Education Program (NKDEP) which additionally recommends that when the eGFR is used in patients with extremes of body mass index for purposes of drug dosing, the eGFR should be multiplied by the estimated BMI. ELECTROLYT Glucose Lvl 95 mg/dL 70 - 99 11/27 The [place] ELECTROLYT BUN 6 mg/dL 7 - 22 11/27 The [place] ELECTROLYT Creatinine 0.43 mg/dL 0.50 - 11/27 The Lvl 1.40 [place] HEMATOLOGY Monocytes 8.2 % 2.0 - 12.0 11/27 [facility] The [place] HEMATOLOGY Eosinophils 0.9 % 0.0 - 4.0 11/27 MH The [place] HEMATOLOGY Basophils 0.6 % 0.0 - 1.0 11/27 MH The [place] HEMATOLOGY Lymphocytes 2.4 K/CMM 1.0 - 5.5 11/27 The # [place] HEMATOLOGY Monocytes # 0.5 K/CMM 0.0 - 0.8 11/27 The [place] HEMATOLOGY Segs-Bands # 2.6 K/CMM 1.5 - 8.1 11/27 The [place] HEMATOLOGY Segs 47.4 % 45.0 - 11/27 The 75.0 [place] HEMATOLOGY Lymphocytes 42.9 % 20.0 - 11/27 The 40.0 [place] HEMATOLOGY MCH 29.3 pg 27.0 - 11/27 The 31.0 [place] HEMATOLOGY MCHC 33.8 g/dL 32.0 - 11/27 The 36.0 [place] HEMATOLOGY MPV 7.3 fL 7.4 - 10.4 11/27 The [place] HEMATOLOGY RDW 14.8 % 11.5 - 11/27 The 14.5 [place] HEMATOLOGY Platelet 182 K/CMM 133 - 450 11/27 The [place] HEMATOLOGY WBC 5.6 K/CMM 3.7 - 10.4 11/27 [place] HEMATOLOGY RBC 3.84 M/CMM 4.20 - 11/27 The 5.40 [place] HEMATOLOGY Hgb 11.3 g/dL 12.0 - 11/27 The 16.0 [place] HEMATOLOGY Hct 33.4 % 36.0 - 11/27 The 48.0 [place] HEMATOLOGY MCV 86.8 fL 80.0 - 11/27 MH The 98. [place] CHEM PANEL eGFR 140 11/27 Result Comment: The eGFR is calculated using the CKD-EPI formula. In most young, healthy individuals the eGFR will be >90 mL/ min/1.73m2. The eGFR declines with age. An eGFR of 60-89 may be normal in The mL/min/1. some populations, particularly the elderly, for whom the CKD-EPI formula has not been extensively validated. Use of the eGFR is not recommended in the following populations: [address] Individuals with unstable creatinine concentrations, including patients and those with serious co-morbid conditions. Patients with extremes in muscle mass or diet. The data above are obtained from the National Kidney Disease Education Program (NKDEP) which additionally recommends that when the eGFR is used in patients with extremes of body mass index for purposes of drug dosing, the eGFR should be multiplied by the estimated BMI. CHEM PANEL Alk Phos 63 unit/L 39 - 136 11/27 [place] CHEM PANEL Bili Total 0.6 mg/dL 0.2 - 1.3 11/27 [place] CHEM PANEL ALT 28 unit/L 0 - 65 11/27 [place] CHEM PANEL AST 19 unit/L 0 - 37 11/27 [place] CHEM PANEL Potassium 3.5 meq/L 3.5 - 5.1 11/27 The Lvl [place] CHEM PANEL Creatinine 0.50 mg/dL 0.50 - 11/27 [facility] The Lvl 1.40 [place] CHEM PANEL Sodium Lvl 136 meq/L 135 - 145 11/27 The [place] CHEM PANEL BUN 6 mg/dL 7 - 22 11/27 [place] CHEM PANEL Chloride Lvl 103 meq/L 95 - 109 11/27 The [place] CHEM PANEL Glucose Lvl 95 mg/dL 70 - 99 11/27 [place] CHEM PANEL Albumin Lvl 4.1 g/dL 3.5 - 5.0 11/27 [place] CHEM PANEL Calcium Lvl 8.8 mg/dL 8.5 - 10.5 11/27 [place] CHEM PANEL Total 7.6 g/dL 6.4 - 8.4 11/27 The Protein [place] CHEM PANEL CO2 26 meq/L 24 - 32 11/27 [place] CHEM PANEL AGAP 10.5 meq/L 10.0 - 11/27 MH The 20.0 [place] CHEM PANEL A/G Ratio 1.2 0.7 - 1.6 11/27 [place] CHEM PANEL Globulin 3.5 g/dL 2.7 - 4.2 11/27 [place] CHEM PANEL B/C Ratio 12 6 - 25 11/27 The [place] CHEM PANEL Lactic Acid 0.5 mMol/L 0.5 - 2.2 11/27 The Lvl [place] [address] 11/27 The OGY mIU/mL [place] HEMATOLOGY Platelet 209 K/CMM 133 - 450 11/27 The [place] HEMATOLOGY RDW 14.3 % 11.5 - 11/27 The 14.5 [place] HEMATOLOGY MPV 7.3 fL 7.4 - 10.4 11/27 The [place] HEMATOLOGY WBC 6.6 K/CMM 3.7 - 10.4 11/27 The [place] HEMATOLOGY Hgb 12.4 g/dL 12.0 - 11/27 The 16.0 [place] HEMATOLOGY RBC 4.23 M/CMM 4.20 - 11/27 The 5.40 [place] HEMATOLOGY MCV 87.4 fL 80.0 - 11/27 The 98.0 [place] HEMATOLOGY MCH 29.3 pg 27.0 - 11/27 The 31.0 [place] HEMATOLOGY Hct 37.0 % 36.0 - 11/27 The 48.0 [place] HEMATOLOGY MCHC 33.6 g/dL 32.0 - 11/27 The 36.0 [place] HEMATOLOGY Lymphocytes 2.2 K/CMM 1.0 - 5.5 11/27 The # [place] HEMATOLOGY Segs-Bands # 3.9 K/CMM 1.5 - 8.1 11/27 The [place] HEMATOLOGY Monocytes # 0.5 K/CMM 0.0 - 0.8 11/27 The [place] HEMATOLOGY Eosinophils 0.4 % 0.0 - 4.0 11/27 The [place] HEMATOLOGY Segs 58.8 % 45.0 - 11/27 The 75.0 [place] HEMATOLOGY Lymphocytes 33.4 % 20.0 - 11/27 The 40.0 [place] HEMATOLOGY Monocytes 6.9 % 2.0 - 12.0 11/27 The [place] HEMATOLOGY Basophils 0.5 % 0.0 - 1.0 11/27 The [place] URINE AND UA <=1.0 0.1 - 1.0 11/27 The STOOL Urobilinogen mg/dL [place] URINE AND UA WBC 3 /HPF 0 - 5 11/27 The [place] URINE AND UA RBC 2 /HPF 0 - 2 11/27 The [place] URINE AND UA Mucus Few /LPF None Seen 11/27 The STOOL /LPF [place] URINE AND UA Color Yellow Yellow 11/27 The [place] *NA* (11/26/16 8:45 PM) URINE AND UA pH 6.0 5.0 - 8.0 11/27 The [place] URINE AND UA Turbidity Slight Clear 11/27 The [place] *ABN* (11/26/16 8:45 PM) URINE AND UA Spec Grav 1.015 <=1.030 11/27 The [place] URINE AND UA Bili Negative Negative 11/27 The [place] *NA* (11/26/16 8:45 PM) URINE AND UA Blood Negative Negative 11/27 The [place] (11/26/16 8:45 PM) URINE AND UA Nitrite Negative Negative 11/27 The [place] (11/26/16 8:45 PM) URINE AND UA Glucose Negative Negative 11/27 The STOOL mg/dL mg/dL [place] URINE AND UA Protein Negative Negative 11/27 The STOOL mg/dL mg/dL [place] URINE AND UA Ketones Negative Negative 11/27 The STOOL mg/dL mg/dL [place] URINE AND UA Sq Epi Many /LPF Few /LPF 11/27 The [place] URINE AND UA Leuk Est Large Negative 11/27 The [place] *ABN* (11/26/16 8:45 PM) < Clinical Indication: Back pain; positive test. 11/26 The < 14 weeks 14 weeks - [place] single single Comparison: None gestation gestation US US Read by: Neri Em MD Dictated Date/time: 11/26/16 22:13 TECHNIQUE: Pelvic ultrasound was performed with color and geronimo scale imaging. Transabdominal and transvaginal technique performed. Electronically Signed by: Neri Em MD 11/26/16 22 :37 FINAL REPORT FINDINGS: The pelvic transabdominal ultrasound static images show that the anteverted uterus measures 12.3 x 8.1 x 8.9 cm. The pelvic transvaginal images show a single monochorionic/monoamnionic intrauterine with an ovoid gestational sac. The pole and yolk sac are seen. The estimated gestational age is 10 we eks 2 days by crown-rump length of 3.31 cm. The heart rate is 170 beats per minute. There is a subchorionic hemorrhage measuring 0.9 x 0.6 x 0.6 cm. The right ovary measures 2.8 x 1.9 x 3.1 cm and the left ovary measures 3.3 x 2.3 x 3.3 cm. There is a complex left ovarian cyst measuring 2.3 x 2.7 x 1.5 cm. There are no adnexal masses. The Doppler images show normal bilateral ovarian blood flow. There is no free fluid in the cul-de-sac. IMPRESSION: 1. Single intrauterine with estimated gestational age of 10 weeks 2 days . heart rate of 170 beats per minute. There is a small subchorionic hemorrhage with a maximum size of 0.9 cm. Followup may be performed with quantitative beta-hCG levels and short interval sonography. SL: [id number] CHEM PANEL Phosphorus 2.4 mg/dL 2.5 - 4.5 08/22 [place] CHEM PANEL Magnesium 1.5 mg/dL 1.8 - 2.4 08/22 The Lvl [place] CHEM PANEL Globulin 2.9 g/dL 2.7 - 4.2 08/22 [place] CHEM PANEL AGAP 13.6 meq/L 10.0 - 08/22 The 20.0 [place] CHEM PANEL A/G Ratio 0.9 0.7 - 1.6 08/22 [place] CHEM PANEL B/C Ratio 6 6 - 25 08/22 [place] CHEM PANEL eGFR 130 08/22 Result Comment: The eGFR is calculated using the CKD-EPI formula. In most young, healthy individuals the eGFR will be >90 mL/ min/1.73m2. The eGFR declines with age. An eGFR of 60-89 may be normal in The mL/min/1.7 /2015 some populations, particularly the elderly, for whom the CKD-EPI formula has not been extensively validated. Use of the eGFR is not recommended in the following populations: [place] 3m2 Individuals with unstable creatinine concentrations, including patients and those with serious co-morbid conditions. Patients with extremes in muscle mass or diet. The data above are obtained from the National Kidney Disease Education Program (NKDEP) which additionally recommends that when the eGFR is used in patients with extremes of body mass index for purposes of drug dosing, the eGFR should be multiplied by the estimated BMI. CHEM PANEL ALT 31 unit/L 0 - 65 08/22 The [place] CHEM PANEL AST 22 unit/L 0 - 37 08/22 The [place] CHEM PANEL Total 5.4 g/dL 6.4 - 8.4 08/22 The Protein [place] CHEM PANEL Alk Phos 69 unit/L 39 - 136 08/22 The [place] CHEM PANEL Bili Total 1.0 mg/dL 0.2 - 1.3 08/22 The [place] CHEM PANEL BUN 4 mg/dL 7 - 22 08/22 The [place] CHEM PANEL Creatinine 0.63 mg/dL 0.50 - 08/22 The Lvl 1.40 [place] CHEM PANEL Sodium Lvl 144 meq/L 135 - 145 08/22 The [place] CHEM PANEL Calcium Lvl 7.7 mg/dL 8.5 - 10.5 08/22 The [place] CHEM PANEL Potassium 3.6 meq/L 3.5 - 5.1 08/22 The Lvl [place] CHEM PANEL Chloride Lvl 111 meq/L 95 - 109 08/22 The [place] CHEM PANEL CO2 23 meq/L 24 - 32 08/22 The [place] CHEM PANEL Albumin Lvl 2.5 g/dL 3.5 - 5.0 08/22 The [place] CHEM PANEL Glucose Lvl 79 mg/dL 70 - 99 08/22 [place] HEMATOLOGY Basophils 0.4 % 0.0 - 1.0 08/22 [place] HEMATOLOGY Eosinophils 0.4 % 0.0 - 4.0 08/22 The [place] HEMATOLOGY Lymphocytes 1.5 K/CMM 1.0 - 5.5 08/22 MH The # [place] HEMATOLOGY Segs-Bands # 4.6 K/CMM 1.5 - 8.1 10 The [place] HEMATOLOGY Monocytes # 0.5 K/CMM 0.0 - 0.8 08/22 The [place] HEMATOLOGY Monocytes 8.1 % 2.0 - 12.0 10 The [place] HEMATOLOGY Lymphocytes 22.9 % 20.0 - 10 The 40.0 [place] HEMATOLOGY Segs 68.2 % 45.0 - 08/22 The 75.0 [place] HEMATOLOGY Plt Morph Normal 08/22 The [place] (08/22/16 3:10 AM) HEMATOLOGY PTT 36.3 s 22.9 - 08/22 The 35.8 [place] HEMATOLOGY INR 1.31 0.85 - 08/22 The 1.17 [place] HEMATOLOGY PT 16.5 s 12.0 - 08/22 The 14.7 [place] HEMATOLOGY RBC 3.55 M/CMM 4.20 - 08/22 The 5.40 [place] HEMATOLOGY Hgb 10.9 g/dL 12.0 - 08/22 The 16.0 [place] HEMATOLOGY WBC 6.8 K/CMM 3.7 - 10.4 08/22 The [place] HEMATOLOGY Hct 31.7 % 36.0 - 08/22 The 48.0 [place] HEMATOLOGY MCV 89.3 fL 80.0 - 08/22 The 98.0 [place] HEMATOLOGY MCH 30.8 pg 27.0 - 08/22 The 31.0 [place] HEMATOLOGY MCHC 34.5 g/dL 32.0 - 08/22 The 36.0 [place] HEMATOLOGY MPV 7.2 fL 7.4 - 10.4 08/22 The [place] HEMATOLOGY RDW 13.8 % 11.5 - 08/22 The 14. [place] HEMATOLOGY Platelet 129 K/CMM 133 - 450 08/22 [place] MOLECULAR C difficile Negative Negative 08/21 The DIAGNOSTIC [place] (08/21/16 4:31 PM) URINE AND Lactoferrin 109.70 0.00 - 08/21 Result Comment: Results verified by repeat testing The STOOL Stool microgram/ 7.24 /2015 [place] mL Baseline (normal) 0.00 - 7.24 Elevated >7.24 An elevated result is indicative of the presence of fecal lactoferrin, a marker of intestinal inflammation. A normal result does not exclude the presence of intestinal inflammation. The test can be used as an in vitro diagnostic aid to distinguish patients with active inflammatory bowel disease (IBD) from those with non-inflammatory irritable bowel syndrome (IBS). Performed At: [facility] [id number] Erma Justin MD Ph:[phone] CHEM PANEL Lactic Acid 0.6 mMol/L 0.5 - 2.2 08/21 The l [place] Retroperit Retroperiton Clinical Indication: Back pain 08/21 - The [facility] Comparison: None Read by: Hunter Gandara MD Dictated Date/time: 08/21/16 13:17 TECHNIQUE: Electronically Signed by: Hunter Gandara MD 08/21/16 13:18 FINAL REPORT Multiple longitudinal and transverse real time sonographic images of the kidneys and urinary bladder are obtained. FINDINGS: KIDNEYS: The right kidney measures 12.4 cm. The left kidney measures 13.2 cm. The kidneys are normal in shape and contour. There is normal parenchymal echotexture. The cortices are normal in thickness and the corticomedulluary differentiation is maintained. There is minimal righ t pelvicaliectasis. There is no hydronephrosis, nephrolithiasis, or abnormal perinephric collections. BLADDER: Scanning through the pelvis reveals the bladder to be partially distended with anechoic urine. IMPRESSION: 1. Minimal right pelvicaliectasis. 2. Otherwise unremarkable renal ultrasound. SL: FCER--PC CHEM PANEL Globulin 3.5 g/dL 2.7 - 4.2 08/21 [place] CHEM PANEL A/G Ratio 1.0 0.7 - 1.6 08/21 The [place] CHEM PANEL B/C Ratio 10 6 - 25 08/21 The [place] CHEM PANEL AGAP 10.3 meq/L 10.0 - 08/21 The 20.0 [place] CHEM PANEL eGFR 95 08/21 Result Comment: The eGFR is calculated using the CKD-EPI formula. In most young, healthy individuals the eGFR will be >90 mL/ min/1.73m2. The eGFR declines with age. An eGFR of 60-89 may be normal in The mL/min/1.7 some populations, particularly the elderly, for whom the CKD-EPI formula has not been extensively validated. Use of the eGFR is not recommended in the following populations: [address] Individuals with unstable creatinine concentrations, including patients and those with serious co-morbid conditions. Patients with extremes in muscle mass or diet. The data above are obtained from the National Kidney Disease Education Program (NKDEP) which additionally recommends that when the eGFR is used in patients with extremes of body mass index for purposes of drug dosing, the eGFR should be multiplied by the estimated BMI. CHEM PANEL Chloride Lvl 105 meq/L 95 - 109 08/21 The [place] CHEM PANEL Potassium 3.3 meq/L 3.5 - 5.1 08/21 The Lvl [place] CHEM PANEL BUN 9 mg/dL 7 - 22 08/21 The [place] CHEM PANEL Glucose Lvl 104 mg/dL 70 - 99 08/21 [place] CHEM PANEL Total 7.1 g/dL 6.4 - 8.4 08/21 The Protein [place] CHEM PANEL Calcium Lvl 8.8 mg/dL 8.5 - 10.5 08/21 The [place] CHEM PANEL CO2 27 meq/L 24 - 32 08/21 The [place] CHEM PANEL Sodium Lvl 139 meq/L 135 - 145 08/21 The [place] CHEM PANEL Creatinine 0.88 mg/dL 0.50 - 10 The Lvl 1.40 [place] CHEM PANEL ALT 36 unit/L 0 - 65 08/21 The [place] CHEM PANEL Albumin Lvl 3.6 g/dL 3.5 - 5.0 08/21 [place] CHEM PANEL Alk Phos 98 unit/L 39 - 136 08/21 The [place] CHEM PANEL AST 25 unit/L 0 - 37 08/21 The [place] CHEM PANEL Bili Total 0.7 mg/dL 0.2 - 1.3 08/21 The [place] ENDOCRINOL S Preg Negative Negative 08/21 The OGY /2015 [place] *NA* (08/21/16 1:37 AM) HEMATOLOGY Monocytes # 0.6 K/CMM 0.0 - 0.8 08/21 The [place] HEMATOLOGY Eosinophils 0.2 % 0.0 - 4.0 08/21 The [place] HEMATOLOGY Lymphocytes 1.4 K/CMM 1.0 - 5.5 08/21 The # /2015 [place] HEMATOLOGY Basophils 0.4 % 0.0 - 1.0 08/21 The [place] HEMATOLOGY Segs-Bands # 7.9 K/CMM 1.5 - 8.1 08/21 The [place] HEMATOLOGY Segs 79.5 % 45.0 - 10 The 75.0 [place] HEMATOLOGY Monocytes 5.9 % 2.0 - 12.0 08/21 The [place] HEMATOLOGY Lymphocytes 14.0 % 20.0 - 08/21 The 40.0 [place] HEMATOLOGY RDW 14.3 % 11.5 - 08/21 The 14.5 [place] HEMATOLOGY MCHC 34.4 g/dL 32.0 - 08/21 The 36.0 /2015 [place] HEMATOLOGY MCH 30.4 pg 27.0 - 10 The 31.0 [place] HEMATOLOGY Platelet 215 K/CMM 133 - 450 08/21 The [place] HEMATOLOGY Hct 38.3 % 36.0 - 08/21 The 48.0 [place] HEMATOLOGY Hgb 13.1 g/dL 12.0 - 08/21 The 16.0 [place] HEMATOLOGY MCV 88.5 fL 80.0 - 08/21 The 98.0 [place] HEMATOLOGY MPV 7.3 fL 7.4 - 10.4 08/21 The [place] HEMATOLOGY RBC 4.33 M/CMM 4.20 - 10 The 5.40 /2015 [place] HEMATOLOGY WBC 10.0 K/CMM 3.7 - 10.4 08/21 The [place] URINE AND UA <=1.0 0.1 - 1.0 08/21 The STOOL Urobilinogen mg/dL [place] URINE AND UA RBC null 0 - 2 08/21 MH The STOOL /2015 [place] URINE AND UA WBC 20 /HPF 0 - 5 1004 MH The STOOL [place] URINE AND UA Sq Epi Many /LPF Few /LPF 08/21 The [place] URINE AND UA Amorph Occasional None Seen 08/21 The STOOL Lisa /HPF /HPF [facility] URINE AND UA Bacteria Few /HPF None Seen 08/21 The STOOL /HPF [facility] URINE AND UA Blood Large Negative 08/21 The [facility] *ABN* (08/21/16 1:37 AM) URINE AND UA Bili Negative Negative 08/21 The [facility] *NA* (08/21/16 1:37 AM) URINE AND UA Ketones Negative Negative 08/21 The STOOL mg/dL mg/dL [facility] URINE AND UA Glucose Negative Negative 08/21 The STOOL mg/dL mg/dL [facility] URINE AND UA Leuk Est Large Negative 08/21 The [facility] *ABN* (08/21/16 1:37 AM) URINE AND UA Nitrite Negative Negative 08/21 The [facility] (08/21/16 1:37 AM) URINE AND UA Spec Grav 1.011 <=1.030 08/21 The [facility] URINE AND UA pH 6.5 5.0 - 8.0 08/21 The [facility] URINE AND UA Turbidity Slight Clear 08/21 The [facility] *ABN* (08/21/16 1:37 AM) URINE AND UA Protein 20 mg/dL Negative 08/21 The STOOL mg/dL [facility] URINE AND UA Color Red Yellow 08/21 The [facility] *ABN* (08/21/16 1:37 AM) Renal Renal Stone Study: Renal Stone CT 08/21/2016 1:20 AM CDT 08/21 - The Stone CT CT [place] Clinical Indication: Abdominal pain, acute; Read by: Abbe Ponce MD Dictated Date/time: 08/21/16 02:57 Comparison: None Electronically Signed by: Abbe Ponce 08/21/16 03:06 FINAL REPORT TECHNIQUE: Helical imaging was performed diaphragm through the symphysis with multiplanar reformations obtained. IV CONTRAST: None GI CONTRAST: 2015 DLP: [id number] [facility] FINDINGS: LOWER CHEST: Visualized lower lungs are clear. No pericardial or pleural effusion. SOLID ORGANS: Unremarkable noncontrast appearance of liver, adrenal glands , pancreas and gallbladder. Spleen is borderline size. The kidneys are without hydronephrosis or nephrolithiasis. No perinephric stranding. Ureters are normal caliber and course without ureterolithiasis. BOWEL: The small and large bowel are nonobstructed. Normal appendix. Possible minimal areas of pericolonic stranding. The wall of the terminal ileum appears somewhat prominent. Small reactive size mesenteric lymph nodes. PERITONEUM: No free intraperitoneal fluid or air. RETROPERITONEUM: Abdominal aorta is normal caliber. PELVIS: Pelvic viscera appear unremarkable. MUSCULOSKELETAL: No aggressive appearing osteolytic or osteoblastic lesions.. Minimal sacroiliac joint irregularity could reflect early changes of sacroiliitis. IMPRESSION: 1. Suggestion of minimal pericolonic stranding. Also slight wall thickening of the terminal ileum. Correlate for signs of infectious colitis versus inflammatory bowel disease 2. Negative for hydronephrosis or nephrolithiasis. 3. Borderline splenomegaly. SL: [place] CHEM PANEL Lipase Lvl 175 unit/L 73 - 393 07/23 [place] CHEM PANEL eGFR 137 07/23 Result Comment: The eGFR is calculated using the CKD-EPI formula. In most young, healthy individuals the eGFR will be >90 mL/ min/1.73m2. The eGFR declines with age. An eGFR of 60-89 may be normal in The mL/min/1.7 some populations, particularly the elderly, for whom the CKD-EPI formula has not been extensively validated. Use of the eGFR is not recommended in the following populations: [place] 3m2 Individuals with unstable creatinine concentrations, including patients and those with serious co-morbid conditions. Patients with extremes in muscle mass or diet. The data above are obtained from the National Kidney Disease Education Program (NKDEP) which additionally recommends that when the eGFR is used in patients with extremes of body mass index for purposes of drug dosing, the eGFR should be multiplied by the estimated BMI. CHEM PANEL Bili Total 0.3 mg/dL 0.2 - 1.3 07/23 [place] CHEM PANEL Albumin Lvl 3.8 g/dL 3.5 - 5.0 07/23 [place] CHEM PANEL ALT 56 unit/L 0 - 65 07/23 [place] CHEM PANEL Alk Phos 86 unit/L 39 - 136 09/05 [facility] [place] CHEM PANEL AST 27 unit/L 0 - 37 09/05 [facility] [place] CHEM PANEL BUN 5 mg/dL 7 - 22 09/05 [facility] [place] CHEM PANEL Potassium 3.7 meq/L 3.5 - 5.1 09/05 The Lvl /2015 [place] CHEM PANEL Glucose Lvl 95 mg/dL 70 - 99 09/ The [place] CHEM PANEL Calcium Lvl 8.7 mg/dL 8.5 - 10.5 09/ The [place] CHEM PANEL CO2 27 meq/L 24 - 32 09/ The [place] CHEM PANEL Total 7.0 g/dL 6.4 - 8.4 09/ The Protein [place] CHEM PANEL Chloride Lvl 109 meq/L 95 - 109 09/ The [place] CHEM PANEL Sodium Lvl 141 meq/L 135 - 145 09/ The [place] CHEM PANEL Creatinine 0.56 mg/dL 0.50 - 09/05 The Lvl 1.40 [place] CHEM PANEL A/G Ratio 1.2 0.7 - 1.6 09/ The [place] CHEM PANEL AGAP 8.7 meq/L 10.0 - 09/05 The 20.0 [place] CHEM PANEL B/C Ratio 9 6 - 25 09/05 The [place] CHEM PANEL Globulin 3.2 g/dL 2.7 - 4.2 09/ The [place] HEMATOLOGY Segs 67.1 % 45.0 - 09/05 The 75.0 [place] HEMATOLOGY Basophils 0.4 % 0.0 - 1.0 09/05 The [place] HEMATOLOGY Lymphocytes 24.6 % 20.0 - 09/05 The 40.0 [place] HEMATOLOGY Eosinophils 1.7 % 0.0 - 4.0 09/05 The [place] HEMATOLOGY Monocytes 6.2 % 2.0 - 12.0 09/05 The [place] HEMATOLOGY Lymphocytes 2.1 K/CMM 1.0 - 5.5 09/05 The # [facility] HEMATOLOGY Monocytes # 0.5 K/CMM 0.0 - 0.8 09/05 The [place] HEMATOLOGY Segs-Bands # 5.8 K/CMM 1.5 - 8.1 07/23 The [place] HEMATOLOGY Eosinophils 0.1 K/CMM 0.0 - 0.5 07/23 The # /2016 [facility] HEMATOLOGY WBC 8.6 K/CMM 3.7 - 10.4 07/23 The [place] HEMATOLOGY RBC 4.14 M/CMM 4.20 - 07/23 The 5.40 /2015 [facility] HEMATOLOGY Hct 37.2 % 36.0 - 07/23 The 48.0 [place] HEMATOLOGY Platelet 220 K/CMM 133 - 450 07/23 The [place] HEMATOLOGY MCHC 33.7 g/dL 32.0 - 07/23 The 36.0 [facility] HEMATOLOGY RDW 13.5 % 11.5 - 07/23 The 14.5 [facility] HEMATOLOGY Hgb 12.6 g/dL 12.0 - 07/23 The 16.0 [facility] HEMATOLOGY MCH 30.4 pg 27.0 - 07/23 The 31.0 [facility] HEMATOLOGY MCV 90.0 fL 80.0 - 07/23 The 98.0 [place] HEMATOLOGY MPV 7.4 fL 7.4 - 10.4 07/23 [facility] URINE AND UA <=1.0 0.1 - 1.0 07/23 The STOOL Urobilinogen mg/dL [facility] URINE AND UA Mucus Few /LPF None Seen 07/23 The STOOL /LPF /2015 [place] URINE AND UA RBC 1 /HPF 0 - 2 07/23 The STOOL [place] URINE AND UA Nitrite Negative Negative 07/23 The STOOL /2015 [place] (07/23/16 6:02 PM) URINE AND UA Blood Negative Negative 07/23 The STOOL [facility] (07/23/16 6:02 PM) URINE AND UA Sq Epi Many /LPF Few /LPF 07/23 The STOOL [place] URINE AND UA WBC 2 /HPF 0 - 5 07/23 The STOOL [place] URINE AND UA Leuk Est Negative Negative 07/23 The STOOL /2015 [place] (07/23/16 6:02 PM) URINE AND UA Bili Negative Negative 07/23 The STOOL [place] *NA* (07/23/16 6:02 PM) URINE AND UA Ketones Negative Negative 07/23 The STOOL mg/dL mg/dL /2015 [place] URINE AND UA Glucose Negative Negative 07/23 The STOOL mg/dL mg/dL /2015 [place] URINE AND UA Protein Negative Negative 07/23 The STOOL mg/dL mg/dL /2015 [place] URINE AND UA pH 7.0 5.0 - 8.0 07/23 The STOOL [place] URINE AND UA Spec Grav 1.005 <=1.030 07/23 The STOOL [place] URINE AND UA Color Light Yellow Yellow 07/23 The STOOL [place] *NA* (07/23/16 6:02 PM) URINE AND UA Turbidity Clear Clear 07/23 The STOOL /2015 [place] (07/23/16 6:02 PM) URINE CHEM U Preg Negative Negative 07/23 The [facility] (07/23/16 6:02 PM) Abdomen/Pe Abdomen/Pelv Patient Name: CELESTINE CAR 07/23 - The lvis w IV is w IV /2015 [facility] contrast contrast CT : 1995; Age: 20 years y/o Female CT MR: [id number] Read by: Syeda Kennedy MD Dictated Date/time: 07/23/16 19:34 Electronically Signed by: Syeda Kennedy MD 07/23/16 19:40 FINAL REPORT Study: Abdomen/Pelvis w IV contrast CT 07/23/2016 6:49 PM CDT Ordering Physician: Jose L Amor MD Clinical Indication: Abdominal pain, acute; right flank Comparison: None TECHNIQUE: Sequential trans-axial images were obtained with a multi- detector helical CT with IV contrast. Coronal and sagittal reconstructions were obtained. 100 mL of Omni intravenously were used for the exam. CT Radiation Dose DLP 378.41 mGy-cm FINDINGS: CT ABDOMEN: VISUALIZED LUNG BASES: demonstrate no acute pathology. ABDOMINAL ORGANS: The liver, spleen, pancreas, adrenals and kidneys demonstrate no acute pathology. STOMACH AND BOWEL: The stomach demonstrates no acute pathology. There is no evidence of bowel obstruction or free air. PERITONEUM AND RETROPERITONEUM: There is no lymphadenopathy appreciated. VASCULAR STRUCTURES: The abdominal aorta demonstrates no acute pathology . CT PELVIS: The appendix does not appear inflamed. PERITONEUM AND EXTRAPERITONEAL REGIONS: There is no pelvic sidewall lymphadenopathy. The inguinal regions demonstrate no acute pathology. BLADDER: The bladder demonstrate no acute pathology. OSSEOUS STRUCTURES: There are no focal suspicious lesions appreciated. IMPRESSION: No acute pathology appreciated. Please correlate, follow-up recommended if ongoing clinical concern SL: [id number] Chest 2 Chest 2 Clinical Indication: Shortness of Breath. Chest and back pain for 2 days. 07/23 - The views DX views DX [facility] Comparison: None. Read by: Colin Solorio MD Dictated Date/time: 07/23/16 18:49 Electronically Signed by: Colin Solorio MD 07/23/16 18:50 FINAL REPORT TECHNIQUE: PA and lateral chest radiographs were performed. (2 views) FINDINGS: The cardiac silhouette is normal in size. The pulmonary vasculature is normal in caliber. The aorta is unremarkable. There is no focal airspace consolidation, pleural effusion, or pneumothorax. The visualized bones are within normal limits. IMPRESSION: 1. No acute cardiopulmonary disease. SL: [id number] CHEM PANEL B/C Ratio 14 6 - 25 03/12 [place] CHEM PANEL Globulin 3.5 g/dL 2.0 - 4.0 03/12 [place] CHEM PANEL A/G Ratio 0.9 0.7 - 1.6 03/12 [place] CHEM PANEL AGAP 11.3 meq/L 10.0 - 03/12 The 20.0 [facility] CHEM PANEL eGFR 149 03/12 Result Comment: The eGFR is calculated using the CKD-EPI formula. In most young, healthy individuals the eGFR will be >90 mL/ min/1.73m2. The eGFR declines with age. An eGFR of 60-89 may be normal in The mL/min/1.7 /2015 some populations, particularly the elderly, for whom the CKD-EPI formula has not been extensively validated. Use of the eGFR is not recommended in the following populations: [facility] 3m2 Individuals with unstable creatinine concentrations, including patients and those with serious co-morbid conditions. Patients with extremes in muscle mass or diet. The data above are obtained from the National Kidney Disease Education Program (NKDEP) which additionally recommends that when the eGFR is used in patients with extremes of body mass index for purposes of drug dosing, the eGFR should be multiplied by the estimated BMI. CHEM PANEL AST 10 unit/L 0 - 37 03/12 The [facility] CHEM PANEL Alk Phos 77 unit/L 39 - 136 03/12 The [facility] CHEM PANEL Bili Total 0.2 mg/dL 0.2 - 1.3 03/12 The [place] CHEM PANEL Glucose Lvl 80 mg/dL 70 - 99 03/12 The [place] CHEM PANEL ALT 14 unit/L 0 - 65 03/12 The [facility] CHEM PANEL BUN 6 mg/dL 7 - 22 03/12 The [place] CHEM PANEL Potassium 3.3 meq/L 3.5 - 5.1 03/12 The Lvl [facility] CHEM PANEL Sodium Lvl 141 meq/L 135 - 145 03/12 The [place] CHEM PANEL Creatinine 0.43 mg/dL 0.50 - 03/12 The Lvl 1.40 [facility] CHEM PANEL Chloride Lvl 110 meq/L 95 - 109 03/12 The [place] CHEM PANEL CO2 23 meq/L 24 - 32 03/12 The [place] CHEM PANEL Calcium Lvl 8.6 mg/dL 8.5 - 10.5 03/12 The [place] CHEM PANEL Total 6.7 g/dL 6.4 - 8.4 03/12 The Protein [place] CHEM PANEL Albumin Lvl 3.2 g/dL 3.5 - 5.0 03/12 The [place] HEMATOLOGY WBC 12.9 K/CMM 3.7 - 10.4 03/12 The [place] HEMATOLOGY RBC 3.63 M/CMM 4.20 - 03/12 The 5.40 [facility] HEMATOLOGY Hgb 11.4 g/dL 12.0 - 03/12 The 16.0 [facility] HEMATOLOGY Hct 33.9 % 36.0 - 03/12 The 48.0 [place] HEMATOLOGY MCV 93.5 fL 80.0 - 03/12 The 98.0 [facility] HEMATOLOGY MPV 7.4 fL 7.4 - 10.4 03/12 The [place] HEMATOLOGY Platelet 229 K/CMM 133 - 450 03/12 The [place] HEMATOLOGY MCHC 33.5 g/dL 32.0 - 03/12 The 36.0 [facility] HEMATOLOGY MCH 31.3 pg 27.0 - 03/12 The 31.0 [facility] HEMATOLOGY RDW 13.0 % 11.5 - 03/12 The 14. [facility] HEMATOLOGY Segs 76.8 % 45.0 - 03/12 The 75.0 [place] HEMATOLOGY Lymphocytes 16.4 % 20.0 - 03/12 The 40.0 [facility] HEMATOLOGY Monocytes 6.0 % 2.0 - 12.0 03/12 The [place] HEMATOLOGY Eosinophils 0.5 % 0.0 - 4.0 03/12 The [place] HEMATOLOGY Segs-Bands # 9.9 K/CMM 1.5 - 8.1 03/12 The [place] HEMATOLOGY Basophils 0.3 % 0.0 - 1.0 03/12 The [place] HEMATOLOGY Monocytes # 0.8 K/CMM 0.0 - 0.8 03/12 The [place] HEMATOLOGY Eosinophils 0.1 K/CMM 0.0 - 0.5 03/12 The # [facility] HEMATOLOGY Lymphocytes 2.1 K/CMM 1.0 - 5.5 03/12 The [place] URINE AND UA <=1.0 0.1 - 1.0 03/12 The STOOL Urobilinogen mg/dL /2015 [place] URINE AND UA Mucus Few /LPF None Seen 03/12 The STOOL /LPF /2015 [place] URINE AND UA Bacteria Occasional None Seen 03/12 The STOOL /HPF /HPF /2015 [place] URINE AND UA Amorph Occasional None Seen 03/12 The STOOL Lisa /HPF /HPF /2015 [place] URINE AND UA RBC 9 /HPF 0 - 2 03/12 The STOOL /2015 [place]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 Center URINE AND UA Blood Negative Negative 08/13 [place] [facility] (08/13/15 4:34 AM) Center URINE AND UA 0.2 EU/dL 0.1 - 1.0 08/13 [facility] Urobilinogen /2014 [facility] URINE AND UA Turbidity Clear Clear 08/13 [facility] Medical (08/13/15 4:34 AM) Center URINE AND UA Spec Grav 1.010 <=1.030 08/13 [facility] URINE AND UA pH 6.0 5.0 - 8.0 08/13 [facility] URINE AND UA Ketones Negative Negative 08/13 [facility] [address]OOL [facility] *NA* Center (08/13/15 4:34 AM) URINE AND UA Bili Negative Negative 08/13 [facility] [address]OOL [facility] *NA* [place] (08/13/15 4:34 AM) URINE AND UA Color Yellow Yellow 08/13 [facility] [address]OOL [facility] *NA* [place] (08/13/15 4:34 AM) MOLECULAR N gonorrhea Negative Negative 08/13 [facility] DIAGNOSTIC by Amp Det [facility] ([facility]) *NA* [place] (08/13/15 3:27 AM) MOLECULAR C Negative Negative 08/13 [facility] trachomatis Medical by Amp Det *NA* [place] ([facility] (08/13/15 3:27 AM) MOLECULAR Source Urine 08/13 [facility] DIAGNOSTIC [facility] *NA* Center (08/13/15 3:27 AM) URINE CHEM FNE U Preg Negative Negative 08/[address] [facility] (08/13/15 3:27 AM) [place] Vital Signs Vital Sign Value Date Comments Source Respitory Rate 20 05/12/2018 [facility] Systolic (mm Hg) 91 05/12/2018 [place] Diastolic (mm Hg) 61 05/12/2018 [facility] Systolic (mm Hg) 94 05/11/2018 [place] Diastolic (mm Hg) 54 05/11/2018 [place] Respitory Rate 16 05/11/2018 [place] Respitory Rate 18 05/11/2018 [place] Systolic (mm Hg) 100 05/11/2018 [place] Diastolic (mm Hg) 58 05/11/2018 [place] Heart Rate 103 05/11/2018 [place] Weight 51.875 05/11/2018 [place] BMI Calculated 20.99 03/16/2018 [facility] Height 167.64 cm 03/16/2018 [facility] Weight 59 03/16/2018 [facility] Temperature Oral (F) 98.6 F 03/16/2018 [facility] Systolic (mm Hg) 107 03/16/2018 [facility] Diastolic (mm Hg) 65 03/16/2018 [facility] Heart Rate 81 03/16/2018 [facility] Respitory Rate 20 03/16/2018 [facility] Weight 59.091 03/16/2018 [facility] Temperature Oral (F) 98.6 F 03/16/2018 [facility] Respitory Rate 18 03/16/2018 [facility] Heart Rate 84 03/16/2018 [facility] Systolic (mm Hg) 107 03/16/2018 [facility] Diastolic (mm Hg) 65 03/16/2018 [facility] Systolic (mm Hg) 121 03/09/2018 [facility] Diastolic (mm Hg) 68 03/09/2018 [facility] Respitory Rate 16 03/09/2018 [facility] Heart Rate 78 03/09/2018 [facility] Temperature Oral (F) 97.9 F 03/09/2018 [facility] Systolic (mm Hg) 116 03/09/2018 [facility] Diastolic (mm Hg) 62 03/09/2018 [facility] Heart Rate 81 03/09/2018 [facility] Temperature Oral (F) 97.6 F 03/09/2018 [facility] Respitory Rate 18 03/09/2018 [facility] Height 160.02 cm 03/09/2018 [facility] BMI Calculated 21.83 03/09/2018 [facility] Weight 55.909 03/09/2018 [facility] Heart Rate 91 02/24/2018 [place] Systolic (mm Hg) 93 02/24/2018 [place] Diastolic (mm Hg) 59 02/24/2018 [place] Weight 61.051 02/24/2018 [place] BMI Calculated 23.84 02/24/2018 [place] Respitory Rate 16 02/24/2018 [place] Height 160.02 cm 02/24/2018 [facility] Respitory Rate 18 01/11/2018 [place] Systolic (mm Hg) 95 01/11/2018 [place] Diastolic (mm Hg) 48 01/11/2018 [facility] Respitory Rate 18 01/11/2018 [facility] Systolic (mm Hg) 95 01/11/2018 [place] Diastolic (mm Hg) 55 01/11/2018 [facility] Systolic (mm Hg) 87 01/11/2018 [place] Diastolic (mm Hg) 48 01/11/2018 [facility] Respitory Rate 18 01/11/2018 [place] Heart Rate 82 01/11/2018 [facility] [place] Height 160.02 cm 01/11/2018 [facility] [place] BMI Calculated 22.82 01/11/2018 [facility] [place] Weight 58.438 01/11/2018 [facility] [place] Systolic (mm Hg) 119 12/25/2017 [facility] [place] Diastolic (mm Hg) 72 12/25/2017 [facility] [place] Heart Rate 58 12/25/2017 [facility] [place] Respitory Rate 18 12/25/2017 [facility] [place] Systolic (mm Hg) 102 12/25/2017 [facility] [place] Diastolic (mm Hg) 66 12/25/2017 [place] Temperature Oral (F) 97.9 F 12/25/2017 [facility] [place] Heart Rate 55 12/25/2017 [facility] [place] Respitory Rate 16 12/25/2017 [facility] [place] Systolic (mm Hg) 114 12/25/2017 [facility] [place] Diastolic (mm Hg) 72 12/25/2017 [place] Temperature Oral (F) 98.0 F 12/25/2017 [facility] [place] Respitory Rate 16 12/25/2017 [facility] [place] Heart Rate 55 12/25/2017 [facility] [place] Temperature Oral (F) 98.3 F 12/25/2017 [facility] [place] Weight 59.29 12/24/2017 [facility] [place] Height 160.02 cm 12/24/2017 [place] BMI Calculated 23.15 12/24/2017 [facility] [place] BMI Calculated 22.19 12/23/2017 [facility] [place] Height 160.02 cm 12/23/2017 [place] Weight 56.818 12/23/2017 [facility] [place] Systolic (mm Hg) 117 10/21/2017 [facility] [place] Diastolic (mm Hg) 73 10/21/2017 [facility] Temperature Oral (F) 98.0 F 10/21/2017 [facility] [place] Respitory Rate 18 10/21/2017 [facility] [place] Heart Rate 82 10/21/2017 [facility] [place] Systolic (mm Hg) 110 10/21/2017 [facility] [place] Diastolic (mm Hg) 72 10/21/2017 [facility] [place] Heart Rate 117 10/21/2017 [facility] [place] Respitory Rate 18 10/21/2017 [facility] [place] Temperature Oral (F) 98.0 F 10/21/2017 [facility] [place] BMI Calculated 23.43 10/21/2017 [facility] [place] Weight 60 10/21/2017 [facility] [place] Height 160.02 cm 10/21/2017 [facility] [place] Systolic (mm Hg) 106 04/21/2017 [facility] [place] Diastolic (mm Hg) 60 04/21/2017 [facility] [place] Weight 71.364 04/21/2017 [facility] [place] BMI Calculated 27.87 04/21/2017 [facility] [place] Height 160.02 cm 04/21/2017 [place] Temperature Oral (F) 98.6 F 04/21/2017 [place] Heart Rate 82 04/21/2017 [facility] [place] Respitory Rate 14 04/21/2017 [facility] [place] Systolic (mm Hg) 108 04/21/2017 [facility] [place] Diastolic (mm Hg) 57 04/21/2017 [facility] [place] Height 160.02 cm 04/21/2017 [facility] [place] BMI Calculated 27.87 04/21/2017 [facility] [place] Weight 71.364 04/21/2017 [place] Respitory Rate 16 04/19/2017 [facility] [place] Systolic (mm Hg) 107 04/19/2017 [facility] [place] Diastolic (mm Hg) 61 04/19/2017 [facility] [place] Weight 70.455 04/19/2017 [facility] [place] Systolic (mm Hg) 109 04/19/2017 [facility] [place] Diastolic (mm Hg) 55 04/19/2017 [facility] [place] BMI Calculated 26.66 04/19/2017 [facility] [place] Respitory Rate 14 04/19/2017 [facility] [place] Heart Rate 76 04/19/2017 [place] Temperature Oral (F) 98.1 F 04/19/2017 [facility] [place] Height 162.56 cm 04/19/2017 [facility] [place] Height 162.56 cm 04/19/2017 [facility] [place] BMI Calculated 26.66 04/19/2017 [facility] [place] Weight 70.455 04/19/2017 [facility] [place] Diastolic (mm Hg) 53 04/08/2017 [facility] [place] Heart Rate 67 04/08/2017 [facility] [place] Systolic (mm Hg) 100 04/08/2017 [facility] [place] Respitory Rate 16 04/08/2017 [facility] [place] Heart Rate 64 04/08/2017 [facility] [place] Systolic (mm Hg) 108 04/08/2017 [place] Diastolic (mm Hg) 64 04/08/2017 [place] Respitory Rate 16 04/08/2017 [place] Respitory Rate 16 04/08/2017 [place] Heart Rate 62 04/08/2017 [place] Systolic (mm Hg) 94 04/08/2017 [place] Diastolic (mm Hg) 46 04/08/2017 [place] Temperature Oral (F) 98.9 F 04/05/2017 [place] Temperature Oral (F) 98.7 F 04/05/2017 [place] Temperature Oral (F) 98.7 F 04/05/2017 [place] BMI Calculated 27.69 04/05/2017 [facility] [place] Height 160.02 cm 04/05/2017 [facility] [place] Weight 70.909 04/05/2017 [place] Weight 68.636 04/04/2017 [place] Temperature Oral (F) 98.4 F 04/01/2017 [place] Respitory Rate 19 04/01/2017 [place] Heart Rate 74 04/01/2017 [place] Systolic (mm Hg) 93 04/01/2017 [place] Diastolic (mm Hg) 57 04/01/2017 [place] Heart Rate 61 04/01/2017 [facility] [place] Systolic (mm Hg) 95 04/01/2017 [place] Diastolic (mm Hg) 60 04/01/2017 [place] Respitory Rate 18 04/01/2017 [place] Temperature Oral (F) 98.6 F 04/01/2017 [place] Systolic (mm Hg) 99 04/01/2017 [place] Diastolic (mm Hg) 63 04/01/2017 [place] Respitory Rate 18 04/01/2017 [place] Temperature Oral (F) 98.0 F 04/01/2017 [place] Heart Rate 65 04/01/2017 [place] Weight 72.4 03/31/2017 [place] BMI Calculated 28.27 03/31/2017 [place] Height 160.02 cm 03/31/2017 [place] Weight 70.9 03/31/2017 [place] Systolic (mm Hg) 90 03/29/2017 [facility] Diastolic (mm Hg) 53 03/29/2017 [facility] Systolic (mm Hg) 105 03/29/2017 [facility] Diastolic (mm Hg) 53 03/29/2017 [facility] Systolic (mm Hg) 111 03/29/2017 [facility] Diastolic (mm Hg) 55 03/29/2017 [facility] Height 160.02 cm 03/28/2017 [facility] Respitory Rate 18 03/28/2017 [facility] Temperature Oral (F) 98.3 F 03/28/2017 [facility] BMI Calculated 27.69 03/28/2017 [facility] Heart Rate 72 03/28/2017 [facility] Weight 70.909 03/28/2017 [facility] Height 160.02 cm 03/28/2017 [facility] Weight 70.909 03/28/2017 [facility] BMI Calculated 27.69 03/28/2017 [facility] Respitory Rate 18 03/28/2017 [facility] Temperature Oral (F) 98.4 F 03/28/2017 [facility] Heart Rate 93 03/28/2017 [facility] Weight 70.455 03/21/2017 [place] BMI Calculated 27.51 03/21/2017 [place] Height 160.02 cm 03/21/2017 [place] Temperature Oral (F) 98.3 F 03/21/2017 [place] Heart Rate 85 03/21/2017 [facility] Respitory Rate 18 03/21/2017 [place] Systolic (mm Hg) 123 03/21/2017 [place] Diastolic (mm Hg) 55 03/21/2017 [place] BMI Calculated 27.51 03/21/2017 [place] Weight 70.455 03/21/2017 [place] Height 160.02 cm 03/21/2017 [place] Weight 71.364 02/26/2017 [place] BMI Calculated 27.87 02/26/2017 [place] Height 160.02 cm 02/26/2017 [place] Systolic (mm Hg) 128 02/26/2017 [place] Diastolic (mm Hg) 66 02/26/2017 [place] Temperature Oral (F) 98.2 F 02/26/2017 [place] Heart Rate 89 02/26/2017 [place] Respitory Rate 18 02/26/2017 [facility] Height 160.02 cm 02/26/2017 [facility] [place] Weight 71.364 02/26/2017 [facility] [place] BMI Calculated 27.87 02/26/2017 [facility] [place] Systolic (mm Hg) 114 02/23/2017 [facility] [place] Diastolic (mm Hg) 55 02/23/2017 [facility] Respitory Rate 16 02/23/2017 [facility] [place] Weight 71.591 02/23/2017 [facility] BMI Calculated 27.96 02/23/2017 [facility] [place] Systolic (mm Hg) 112 02/23/2017 [facility] [place] Diastolic (mm Hg) 60 02/23/2017 [facility] [place] Height 160.02 cm 02/23/2017 [facility] [place] Respitory Rate 18 02/23/2017 [facility] Heart Rate 99 02/23/2017 [facility] [place] Temperature Oral (F) 98.4 F 02/23/2017 [facility] Height 160.02 cm 02/23/2017 [facility] [place] BMI Calculated 27.96 02/23/2017 [facility] [place] Weight 71.591 02/23/2017 [facility] Height 160.02 cm 02/19/2017 [facility] [place] BMI Calculated 25.74 02/19/2017 [facility] Weight 65.909 02/19/2017 [facility] Systolic (mm Hg) 108 02/19/2017 [facility] Diastolic (mm Hg) 61 02/19/2017 [facility] Respitory Rate 20 02/19/2017 [facility] Heart Rate 98 02/19/2017 [facility] Height 160.02 cm 02/19/2017 [facility] Weight 65.909 02/19/2017 [facility] BMI Calculated 25.74 02/19/2017 [facility] Respitory Rate 16 02/03/2017 [facility] Systolic (mm Hg) 90 02/03/2017 [facility] Diastolic (mm Hg) 55 02/03/2017 [facility] BMI Calculated 25.74 02/03/2017 [facility] Weight 65.909 02/03/2017 [facility] Height 160.02 cm 02/03/2017 [facility] Respitory Rate 22 02/03/2017 [facility] Heart Rate 84 02/03/2017 [facility] Systolic (mm Hg) 115 02/03/2017 [facility] Diastolic (mm Hg) 61 02/03/2017 [place] BMI Calculated 25.74 02/03/2017 [facility] Height 160.02 cm 02/03/2017 [facility] Weight 65.909 02/03/2017 [place] Heart Rate 94 02/03/2017 [facility] Respitory Rate 12 02/03/2017 [facility] Systolic (mm Hg) 112 02/03/2017 [facility] Diastolic (mm Hg) 75 02/03/2017 [facility] Height 160.02 cm 02/03/2017 [facility] Weight 65.909 02/03/2017 [place] BMI Calculated 25.74 02/03/2017 [place] Temperature Oral (F) 98.8 F 02/03/2017 [facility] Temperature Oral (F) 98.3 F 01/13/2017 [place] Heart Rate 69 01/13/2017 [facility] Respitory Rate 18 01/13/2017 [place] Systolic (mm Hg) 102 01/13/2017 [place] Diastolic (mm Hg) 61 01/13/2017 [place] Weight 64.545 01/13/2017 [place] BMI Calculated 25.21 01/13/2017 [facility] [place] Height 160.02 cm 01/13/2017 [place] Temperature Oral (F) 98.4 F 01/13/2017 [place] Heart Rate 71 01/13/2017 [facility] Respitory Rate 12 01/13/2017 [place] Systolic (mm Hg) 97 01/13/2017 [place] Diastolic (mm Hg) 53 01/13/2017 [place] Systolic (mm Hg) 104 01/02/2017 [facility] Diastolic (mm Hg) 69 01/02/2017 [place] Heart Rate 82 01/02/2017 [facility] Respitory Rate 18 01/02/2017 [place] Respitory Rate 18 01/02/2017 [place] Heart Rate 100 01/02/2017 [facility] [place] Systolic (mm Hg) 110 01/02/2017 [facility] [place] Diastolic (mm Hg) 70 01/02/2017 [place] BMI Calculated 28.57 01/01/2017 [facility] [place] Weight 66.364 01/01/2017 [place] Heart Rate 105 01/01/2017 [facility] [place] Respitory Rate 20 01/01/2017 [facility] [place] Systolic (mm Hg) 113 01/01/2017 [facility] [place] Diastolic (mm Hg) 70 01/01/2017 [facility] Height 152.4 cm 01/01/2017 [place] Heart Rate 72 12/04/2016 [facility] Respitory Rate 18 12/04/2016 [place] Temperature Oral (F) 98.6 F 12/04/2016 [facility] [place] Systolic (mm Hg) 110 12/04/2016 [facility] Diastolic (mm Hg) 56 12/04/2016 [place] Temperature Oral (F) 98.9 F 12/04/2016 [facility] Systolic (mm Hg) 99 12/04/2016 [facility] Diastolic (mm Hg) 61 12/04/2016 [place] Heart Rate 93 12/04/2016 [place] Respitory Rate 18 12/04/2016 [facility] Respitory Rate 18 12/04/2016 [facility] Systolic (mm Hg) 106 12/04/2016 [facility] Diastolic (mm Hg) 52 12/04/2016 [place] Heart Rate 78 12/04/2016 [facility] [place] Weight 63.636 12/03/2016 [facility] [place] Weight 63.835 12/03/2016 [place] Temperature Oral (F) 97.9 F 12/03/2016 [facility] BMI Calculated 24.93 12/03/2016 [facility] Height 160.02 cm 12/03/2016 [facility] Respitory Rate 15 11/28/2016 [place] Heart Rate 55 11/28/2016 [facility] [place] Systolic (mm Hg) 92 11/28/2016 [facility] Diastolic (mm Hg) 60 11/28/2016 [place] Temperature Oral (F) 97.8 F 11/28/2016 [place] Temperature Oral (F) 98.4 F 11/28/2016 [facility] Systolic (mm Hg) 107 11/28/2016 [facility] Diastolic (mm Hg) 64 11/28/2016 [place] Heart Rate 67 11/28/2016 [facility] Respitory Rate 18 11/28/2016 [place] Temperature Oral (F) 98.6 F 11/28/2016 [facility] Heart Rate 73 11/28/2016 [facility] Respitory Rate 16 11/28/2016 [place] Systolic (mm Hg) 97 11/28/2016 [place] Diastolic (mm Hg) 59 11/28/2016 [facility] BMI Calculated 22 11/27/2016 [facility] Weight 61.818 11/27/2016 [place] Height 167.64 cm 11/27/2016 [facility] Respitory Rate 13 08/23/2016 [place] Systolic (mm Hg) 127 08/23/2016 [facility] Diastolic (mm Hg) 60 08/23/2016 [place] Weight 65.909 08/23/2016 [facility] BMI Calculated 24.94 08/23/2016 [place] Height 162.56 cm 08/23/2016 [facility] Heart Rate 59 08/23/2016 [facility] Systolic (mm Hg) 120 08/23/2016 [place] Diastolic (mm Hg) 76 08/23/2016 [facility] Respitory Rate 16 08/23/2016 [place] Systolic (mm Hg) 108 08/23/2016 [place] Diastolic (mm Hg) 68 08/23/2016 [facility] Respitory Rate 18 08/23/2016 [facility] Temperature Oral (F) 98.1 F 08/23/2016 [facility] Heart Rate 66 08/23/2016 [facility] Heart Rate 58 08/22/2016 [facility] Respitory Rate 17 08/22/2016 [place] Systolic (mm Hg) 96 08/22/2016 [place] Diastolic (mm Hg) 61 08/22/2016 [facility] Temperature Oral (F) 98.3 F 08/22/2016 [facility] Temperature Oral (F) 98 F 08/22/2016 [facility] Heart Rate 77 08/22/2016 [facility] Systolic (mm Hg) 108 08/22/2016 [facility] Diastolic (mm Hg) 62 08/22/2016 [facility] Respitory Rate 19 08/22/2016 [facility] Weight 64.682 08/21/2016 [facility] Height 160.02 cm 08/21/2016 [facility] BMI Calculated 25.26 08/21/2016 [facility] Systolic (mm Hg) 117 07/24/2016 [facility] Diastolic (mm Hg) 62 07/24/2016 [facility] Temperature Oral (F) 96.7 F 07/24/2016 [facility] Respitory Rate 18 07/24/2016 [facility] Heart Rate 79 07/24/2016 [facility] Height 160.02 cm 07/23/2016 [facility] Weight 66.818 07/23/2016 [facility] BMI Calculated 26.09 07/23/2016 [facility] Temperature Oral (F) 97.8 F 07/23/2016 [facility] Respitory Rate 18 07/23/2016 [facility] Heart Rate 83 07/23/2016 [facility] Systolic (mm Hg) 116 07/23/2016 [facility] Diastolic (mm Hg) 78 07/23/2016 [facility] Respitory Rate 18 03/12/2016 [facility] Systolic (mm Hg) 88 03/12/2016 [facility] Diastolic (mm Hg) 51 03/12/2016 [facility] Heart Rate 73 03/12/2016 [facility] Systolic (mm Hg) 88 03/12/2016 [facility] Diastolic (mm Hg) 47 03/12/2016 [facility] Respitory Rate 18 03/12/2016 [facility] Heart Rate 65 03/12/2016 [facility] Systolic (mm Hg) 113 03/12/2016 [facility] Diastolic (mm Hg) 64 03/12/2016 [facility] Heart Rate 78 03/12/2016 [facility] Temperature Oral (F) 98.2 F 03/12/2016 [facility] Respitory Rate 18 03/12/2016 [facility] Weight 62.727 03/12/2016 [facility] Height 160.02 cm 03/12/2016 [facility] BMI Calculated 24.5 03/12/2016 [facility] Temperature Oral (F) 98.2 F 03/12/2016 [facility] Height 160.02 cm 03/12/2016 [facility] BMI Calculated 24.5 03/12/2016 [facility] Weight 62.727 03/12/2016 [facility] Temperature Oral (F) 98.1 F 03/12/2016 [facility] Height 160.02 cm 03/12/2016 [facility] Weight 68.182 03/12/2016 [facility] BMI Calculated 26.63 03/12/2016 [facility] Respitory Rate 18 02/28/2016 [facility] Systolic (mm Hg) 122 02/28/2016 [facility] Diastolic (mm Hg) 55 02/28/2016 [facility] Temperature Oral (F) 98.8 F 02/28/2016 [facility] Heart Rate 88 02/28/2016 [facility] Systolic (mm Hg) 107 02/28/2016 [facility] Diastolic (mm Hg) 57 02/28/2016 [facility] Respitory Rate 18 02/28/2016 [facility] Heart Rate 6 02/28/2016 [facility] Temperature Oral (F) 98.9 F 02/28/2016 [facility] Systolic (mm Hg) 98 02/28/2016 [facility] Diastolic (mm Hg) 51 02/28/2016 [facility] Respitory Rate 18 02/28/2016 [facility] Heart Rate 62 02/28/2016 [facility] Temperature Oral (F) 98.3 F 02/28/2016 [facility] Weight 68.182 02/24/2016 [facility] BMI Calculated 26.63 02/24/2016 [facility] Height 160.02 cm 02/24/2016 [facility] Height 160.02 cm 02/24/2016 [facility] BMI Calculated 26.63 02/24/2016 [facility] Weight 68.182 02/24/2016 [facility] Respitory Rate 17 02/21/2016 [facility] Systolic (mm Hg) 103 02/21/2016 [facility] Diastolic (mm Hg) 48 02/21/2016 [facility] Heart Rate 71 02/21/2016 [facility] Temperature Oral (F) 97.9 F 02/21/2016 [facility] Heart Rate 71 02/21/2016 [facility] Respitory Rate 18 02/21/2016 [facility] Systolic (mm Hg) 98 02/21/2016 [facility] Diastolic (mm Hg) 50 02/21/2016 [facility] Respitory Rate 18 02/21/2016 [facility] Heart Rate 74 02/21/2016 [facility] Systolic (mm Hg) 110 02/21/2016 [facility] Diastolic (mm Hg) 69 02/21/2016 [facility] Temperature Oral (F) 99.2 F 02/20/2016 [facility] Temperature Oral (F) 98.9 F 02/20/2016 [facility] Weight 68.182 02/19/2016 [facility] Height 160.02 cm 02/19/2016 [facility] BMI Calculated 26.63 02/19/2016 [facility] Systolic (mm Hg) 121 02/17/2016 [facility] Diastolic (mm Hg) 62 02/17/2016 [facility] Respitory Rate 19 02/17/2016 [facility] Temperature Oral (F) 98.8 F 02/17/2016 [facility] Heart Rate 63 02/17/2016 [facility] Systolic (mm Hg) 109 02/17/2016 [facility] Diastolic (mm Hg) 71 02/17/2016 [facility] Temperature Oral (F) 99.2 F 02/17/2016 [facility] Heart Rate 63 02/17/2016 [facility] Respitory Rate 18 02/17/2016 [facility] Temperature Oral (F) 98.4 F 02/17/2016 [facility] Heart Rate 67 02/17/2016 [facility] Respitory Rate 18 02/17/2016 [facility] Systolic (mm Hg) 111 02/17/2016 [facility] Diastolic (mm Hg) 67 02/17/2016 [facility] BMI Calculated 3.69 02/13/2016 [facility] Height 91.7 cm 02/13/2016 [facility] Weight 3.1 02/13/2016 [facility] Height 160.02 cm 02/13/2016 [facility] BMI Calculated 26.63 02/13/2016 [facility] Weight 68.182 02/13/2016 [facility] Height 160.02 cm 02/13/2016 [facility] BMI Calculated 26.63 02/13/2016 [facility] Weight 68.182 02/13/2016 [facility] Temperature Oral (F) 98.4 F 01/06/2016 [facility] Systolic (mm Hg) 109 01/06/2016 [facility] Diastolic (mm Hg) 40 01/06/2016 [facility] Respitory Rate 18 01/06/2016 [facility] Heart Rate 58 01/06/2016 [facility] Systolic (mm Hg) 101 01/06/2016 [facility] Diastolic (mm Hg) 40 01/06/2016 [facility] Respitory Rate 18 01/06/2016 [facility] Height 160.02 cm 01/06/2016 [facility] Temperature Oral (F) 98.4 F 01/06/2016 [facility] Weight 64.545 01/06/2016 [facility] BMI Calculated 25.21 01/06/2016 [facility] Height 160.02 cm 01/06/2016 [facility] BMI Calculated 25.21 01/06/2016 [facility] Weight 64.545 01/06/2016 [facility] Temperature Oral (F) 98.4 F 08/13/2015 [facility] Heart Rate 61 08/13/2015 [facility] Respitory Rate 18 08/13/2015 [facility] Systolic (mm Hg) 91 08/13/2015 [facility] Diastolic (mm Hg) 46 08/13/2015 [facility] Heart Rate 62 08/13/2015 [facility] Respitory Rate 20 08/13/2015 [facility] Systolic (mm Hg) 98 08/13/2015 [facility] Diastolic (mm Hg) 54 08/13/2015 [facility] Temperature Oral (F) 97.4 F 08/13/2015 [facility] Systolic (mm Hg) 87 08/13/2015 [facility] Diastolic (mm Hg) 46 08/13/2015 [facility] Heart Rate 87 08/13/2015 [facility] Temperature Oral (F) 98 F 08/13/2015 [facility] Respitory Rate 20 08/13/2015 [facility] Height 157.48 cm 08/13/2015 [facility] Weight 54.545 08/13/2015 [facility] BMI Calculated 21.99 08/13/2015 [facility] Encounters Location Location Encounter Encounter Reason Attending ADM DC Status Source Details Type Number For Provider Date Date Visit [facility] [id number] Lalita 08/13 08/13 [facility] Jules /2014 [facility] [id number] Iyabode 01/06 01/06 [facility] [id number] Mari 02/12 02/16 [facility] Chance [facility] Inpatient [id number] Mari 02/18 02/20 [facility] Inpatient [id number] Mari 02/23 02/27 [facility] [place] [facility] Gal[facility] OBS [id number] Marily 03/12 03/12 [facility] [place] [facility] [place] Emergency [id number] Jose L 07/23 07/24 [facility] Inpatient [id number] Deion 08/21 08/23 [facility] [place] [facility] Emergency [id number] Itz 08/23 08/23 [facility] [place] Sand[place] [facility] Observation [id number] Jasmeet 11/26 11/28 [facility] [place] Mowla [facility] Inpatient [id number] Isaías Ya 12/03 12/04 [facility] [place] [facility] Emergency [id number] Jose L 01/01 01/02 [facility] [place] [facility] Emergency [id number] Jose L 01/13 01/13 The Damian Amor [facility] Emergency [id number] Rosa 02/03 02/03 The Damian Nelson [facility] Emergency [id number] Andrew Nix 02/19 02/19 [facility] [place] [facility] Emergency [id number] Marily 02/23 02/23 The Damian Canales [facility] Emergency [id number] Mari 02/26 02/26 [facility] Emergency [id number] Andrew Nix 03/21 03/21 The Damian [facility] Emergency [id number] Camilla 03/28 03/29 [facility] Damian Morrison /2016 [facility] Inpatient [id number] Marily 03/31 04/02 The Dam[facility]patient [id number] Mari 04/04 04/08 The [facility] Emergency [id number] Andrew Nix 04/19 04/19 The Dam[facility] Emergency [id number] Rosa 04/21 04/21 [facility] [place] [facility] Emergency [id number] Ute 10/21 10/[address] [facility] Inpatient [id number] Nina 12/23 12/26 The [facility] Salgado [facility] Emergency [id number] Luz Maria 01/11 01/11 The Damian Dobson /2017 [facility] Emergency [id number] Diomedes 02/24 02/24 The Damian Rosales /2017 [facility] Emergency [id number] Marycruz 03/09 03/09 Damian Vincent /2017 [facility] Emergency [id number] Darvin 03/16 03/16 Damian Fischer /2017 [facility] Emergency [id number] Darvin 03/16 03/16 Damian Fischer [facility] Emergency [id number] Doroteo 05/11 05/12 [facility] [place] [facility] Procedures Procedure Code Date Perfomer Comments Source CS - Caesarean [id number] 05/07/2016 [facility] Stent placement [id number] [facility] Vaginal [id number] [facility] medical personnel present Stent placement [id number] [facility] Vaginal [id number] [facility] medical personnel present Stent placement [id number] [facility] Stent placement [id number] [facility] Vaginal [id number] [facility] medical personnel present
--- OUTSIDE RECORDS SUMMARY | 2018-08-25 06:34 | XMS REPORT | Summary of Care ---
:1995 Author Organization [facility] Address [address] [place] [id number]- Encounter HQ Mike_loreta(FIN) [id number] Date(s): 04/19/17 - 04/19/[address] [address]- Discharge Diagnosis: 30 weeks gestation of Discharge Diagnosis: Abdominal pain during in third trimester Discharge Disposition: Home or Self Care Attending Physician: Andrew Riley MD Vital Signs Most recent to oldest [Reference Range]: 1 2 Height 162.56 cm 162.56 cm (04/19/17 11:47 AM) (04/19/17 11:35 AM) Temperature Oral [96.4-99.1 DegF] 98.1 DegF (04/19/17 11:47 AM) Blood Pressure [90-140/60-90 mmHg] 107/61 mmHg 109/55 mmHg (04/19/17 4:00 PM) (04/19/17 11:47 AM) Respiratory Rate [14-20 BRMIN] 16 BRMIN 14 BRMIN (04/19/17 4:00 PM) (04/19/17 11:47 AM) Peripheral Pulse Rate [60-100 bpm] 76 bpm (04/19/17 11:47 AM) Weight 70.455 kg 70.455 kg (04/19/17 11:47 AM) (04/19/17 11:35 AM) Body Mass Index 26.66 m2 26.66 m2 (04/19/17 11:47 AM) (04/19/17 11:35 AM) Problem List Condition Effective Dates Status Health Status Informant Depression(Confirmed) Resolved Infectious disease in mother Active complicating , childbirth AND/OR puerperium(Confirmed) Kidney stone(Confirmed) 2014 Resolved (Confirmed) Active (Confirmed) 02/13/16 - 06/23/16 8:46 AM Resolved (Confirmed) 08/22/15 - 05/07/16 Resolved (Confirmed) 09/17/16 Active Tobacco use(Confirmed) Active Allergies, Adverse Reactions, Alerts Substance Reaction Severity Status acetaminophen1 Active 1itching Medications Lactated Ringers 1,000 mL 1,000 mL, Rate: 125 ml/hr, Infuse over: 8 hr, Route: IV, Dosing Weight 70.455 kg , Total Volume: 1,000, Start date: 04/19/17 12:23:00 CDT, Duration: 30 day, Stop date: 05/19/17 12:22:00 CDT Start Date: 04/19/17 Stop Date: 04/19/17 Status: DiscontinuedLactated Ringers Injection IV (Lactated Ringers (Bolus) IV) 500 mL, 500 ml/hr, Infuse Over: 1 hr, Route: IV, 500, Drug form: INJ, ONCE, Dosing Weight 70.455 kg,Start date: 04/19/17 12:23:00 CDT, Stop date: 04/19/17 12:23:00 CDT Start Date: 04/19/17 Stop Date: 04/19/17 Status: Orderedtramadol PO, 0 Refill(s) Start Date: 04/19/17 Status: OrderedZofran 0 Refill(s) Start Date: 04/19/17 Status: Ordered Results ELECTROLYTES Most recent to oldest [Reference Range]: 1 Sodium Lvl [135-145 mEq/L] 141 mEq/L (04/19/17 12:57 PM) Potassium Lvl [3.5-5.1 mEq/L] 3.8 mEq/L (04/19/17 12:57 PM) Chloride Lvl [95-109 mEq/L] 109 mEq/L (04/19/17 12:57 PM) CO2 [24-32 mEq/L] 25 mEq/L (04/19/17 12:57 PM) AGAP [10.0-20.0 mEq/L] 10.8 mEq/L (04/19/17 12:57 PM) CHEM PANEL Most recent to oldest [Reference Range]: 1 Creatinine Lvl [0.50-1.40 mg/dL] 0.40 mg/dL *LOW* (04/19/17 12:57 PM) eGFR 151 mL/min/1.73m2 1 *NA* (04/19/17 12:57 PM) BUN [7-22 mg/dL] 4 mg/dL *LOW* (04/19/17 12:57 PM) B/C Ratio [6-25] 10 (04/19/17 12:57 PM) Glucose Lvl [70-99 mg/dL] 80 mg/dL (04/19/17 12:57 PM) Uric Acid [2.5-7.0 mg/dL] 3.8 mg/dL (04/19/17 12:57 PM) Total Protein [6.4-8.4 g/dL] 6.1 g/dL *LOW* (04/19/17 12:57 PM) Albumin Lvl [3.5-5.0 g/dL] 2.9 g/dL *LOW* (04/19/17 12:57 PM) Globulin [2.7-4.2 g/dL] 3.2 g/dL (04/19/17 12:57 PM) A/G Ratio [0.7-1.6] 0.9 (04/19/17 12:57 PM) Calcium Lvl [8.5-10.5 mg/dL] 8.3 mg/dL *LOW* (04/19/17 12:57 PM) ALT [0-65 unit/L] 13 unit/L (04/19/17 12:57 PM) AST [0-37 unit/L] 13 unit/L (04/19/17 12:57 PM) Alk Phos [39-136 unit/L] 78 unit/L (04/19/17 12:57 PM) Bili Total [0.2-1.3 mg/dL] 0.4 mg/dL (04/19/17 12:57 PM) Amylase Lvl [25-115 unit/L] 31 unit/L (04/19/17 12:57 PM) Lipase Lvl [73-393 unit/L] 97 unit/L (04/19/17 12:57 PM) 1Result Comment: The eGFR is calculated using the CKD-EPI formula. In most young , healthy individualsthe eGFR will be >90 mL/min/1.73m2. The eGFR declines with age. An eGFR of 60-89 may be normal in some populations, particularly the elderly, for whom the CKD-EPI formula has not been extensively validated. Use of the eGFR is not recommended in the following populations: Individuals with unstable creatinine concentrations, including patients and those with serious co-morbid conditions. Patients with extremes in muscle mass or diet. The data above are obtained from the National Kidney Disease Education Program ( NKDEP) which additionally recommends that when the eGFR is used in patients with extremes of body mass index for purposesof drug dosing, the eGFR should be multiplied by the estimated BMI.DRUG SCREEN Most recent to oldest [Reference Range]: 1 U Amph Scr [Negative] Negative *NA* (04/19/17 12:40 PM) U Jeannie Scr [Negative] Negative *NA* (04/19/17 12:40 PM) U Benzodia Scr [Negative] Negative *NA* (04/19/17 12:40 PM) U Cocaine Scr [Negative] Negative *NA* (04/19/17 12:40 PM) U Opiate Scr [Negative] Negative *NA* (04/19/17 12:40 PM) U Phencyc Scr [Negative] Negative *NA* (04/19/17 12:40 PM) U Cannab Scr [Negative] Negative *NA* (04/19/17 12:40 PM) UDS Note See Note *NA* (04/19/17 12:40 PM) URINE AND STOOL Most recent to oldest [Reference Range]: 1 UA Turbidity [Clear] Marked *ABN* (04/19/17 12:40 PM) UA Color [Yellow] Yellow *NA* (04/19/17 12:40 PM) UA pH [5.0-8.0] 7.0 (04/19/17 12:40 PM) UA Spec Grav [<=1.030] 1.013 (04/19/17 12:40 PM) UA Glucose [Negative mg/dL] Negative mg/dL *NA* (04/19/17 12:40 PM) UA Blood [Negative] Negative (04/19/17 12:40 PM) UA Ketones [Negative mg/dL] Trace mg/dL *ABN* (04/19/17 12:40 PM) UA Protein [Negative mg/dL] 20 mg/dL *ABN* (04/19/17 12:40 PM) UA Urobilinogen [0.1-1.0 mg/dL] <=1.0 mg/dL *NA* (04/19/17 12:40 PM) UA Bili [Negative] Negative *NA* (04/19/17 12:40 PM) UA Leuk Est [Negative] Large *ABN* (04/19/17 12:40 PM) UA Nitrite [Negative] Negative (04/19/17 12:40 PM) UA WBC [0-5 /HPF] 21 /HPF *HI* (04/19/17 12:40 PM) UA RBC [0-2 /HPF] 4 /HPF *HI* (04/19/17 12:40 PM) UA Bacteria [None Seen /HPF] Few /HPF *NA* (04/19/17 12:40 PM) UA Sq Epi [Few /LPF] Many /LPF *ABN* (04/19/17 12:40 PM) UA Amorph Lisa [None Seen /HPF] Occasional /HPF *NA* (04/19/17 12:40 PM) UA Mucus [None Seen /LPF] Few /LPF *NA* (04/19/17 12:40 PM) HEMATOLOGY Most recent to oldest [Reference Range]: 1 WBC [3.7-10.4 K/CMM] 6.2 K/CMM (04/19/17 12:57 PM) RBC [4.20-5.40 M/CMM] 3.31 M/CMM *LOW* (04/19/17 12:57 PM) Hgb [12.0-16.0 g/dL] 10.0 g/dL *LOW* (04/19/17 12:57 PM) Hct [36.0-48.0 %] 29.3 % *LOW* (04/19/17 12:57 PM) MCV [80.0-98.0 fL] 88.6 fL (04/19/17 12:57 PM) MCH [27.0-31.0 pg] 30.2 pg (04/19/17 12:57 PM) MCHC [32.0-36.0 g/dL] 34.1 g/dL (04/19/17 12:57 PM) RDW [11.5-14.5 %] 13.6 % (04/19/17 12:57 PM) Platelet [133-450 K/CMM] 199 K/CMM (04/19/17 12:57 PM) MPV [7.4-10.4 fL] 7.6 fL (04/19/17 12:57 PM) Segs [45.0-75.0 %] 60.6 % (04/19/17 12:57 PM) Lymphocytes [20.0-40.0 %] 30.6 % (04/19/17 12:57 PM) Monocytes [2.0-12.0 %] 7.7 % (04/19/17 12:57 PM) Eosinophils [0.0-4.0 %] 0.6 % (04/19/17 12:57 PM) Basophils [0.0-1.0 %] 0.5 % (04/19/17 12:57 PM) Segs-Bands # [1.5-8.1 K/CMM] 3.7 K/CMM (04/19/17 12:57 PM) Lymphocytes # [1.0-5.5 K/CMM] 1.9 K/CMM (04/19/17 12:57 PM) Monocytes # [0.0-0.8 K/CMM] 0.5 K/CMM (04/19/17 12:57 PM) MOLECULAR DIAGNOSTIC Most recent to oldest [Reference Range]: 1 Source APTIMA Urine *NA* (04/19/17 12:40 PM) N gonorrhea by Amp Det (APTIMA) [Negative] Negative *NA* (04/19/17 12:40 PM) C trachomatis by Amp Det (APTIMA) [Negative] Negative *NA* (04/19/17 12:40 PM) Immunizations Given and Recorded Vaccine Date Status Refusal Reason influenza virus vaccine, inactivated 02/14/16 Given Procedures Procedure Date Related Diagnosis Body Site Stent placement Vaginal delivery, medical personnel present Social History Social History Type Response Substance Abuse Use: None. Alcohol Never Smoking Status Former smoker; Type: Cigarettes; Tobacco use per day: 2; Previous treatment: None; Ready to change: No; Concerns about tobacco use in household: No; Exposure to Tobacco Smoke None; Other Tobacco Frequency 0.5 PPD; Cigarette Smoking Last 365 Days Yes; Reg Smoking Cessation Counseling Yes Assessment and Plan No data available for this section
--- OUTSIDE RECORDS SUMMARY | 2018-08-25 06:34 | XMS REPORT | Summary of Care ---
:1995 Author Organization [facility] Address [address] [place] [id number]- Encounter HQ Hermelindantr_loreta(FIN) [id number] Date(s): 03/30/17 - 04/01/[address] [address]- Discharge Disposition: Home or Self Care Attending Physician: Marily Canales MD Admitting Physician: Marily Canales MD Vital Signs Most recent to oldest 1 2 3 [Reference Range]: Height 160.02 cm (03/31/17 3:04 AM) Temperature Oral [96.4-99.1 98.4 DegF 98.6 DegF 98.0 DegF DegF] (04/01/17 4:00 PM) (04/01/17 12:00 PM) (04/01/17 8:00 AM) Blood Pressure [90-140/60-90 93/57 mmHg 95/60 mmHg 99/63 mmHg mmHg] (04/01/17 4:00 PM) (04/01/17 12:00 PM) (04/01/17 8:00 AM) Respiratory Rate [14-20 BRMIN] 19 BRMIN 18 BRMIN 18 BRMIN (04/01/17 4:00 PM) (04/01/17 12:00 PM) (04/01/17 8:00 AM) Peripheral Pulse Rate [60-100 74 bpm 61 bpm 65 bpm bpm] (04/01/17 4:00 PM) (04/01/17 12:00 PM) (04/01/17 8:00 AM) Weight 72.4 kg 70.9 kg (03/31/17 3:04 AM) (03/30/17 10:41 PM) Body Mass Index 28.27 m2 (03/31/17 3:04 AM) Problem List Condition Effective Dates Status Health Status Informant Depression(Confirmed) Resolved Infectious disease in mother Active complicating , childbirth AND/OR puerperium(Confirmed) Kidney stone(Confirmed) 2014 Resolved (Confirmed) Active (Confirmed) 02/13/16 - 06/23/16 8:46 AM Resolved Tobacco use(Confirmed) Active Allergies, Adverse Reactions, Alerts Substance Reaction Severity Status acetaminophen1 Active 1itching Medications bisacodyl 10 mg, 1 supp, Route: HI, Drug form: SUPP, PRN, Dosing Weight 72.4, kg, PRN Gas , Start date: 03/31/17 3:26:00 CDT, Duration: 30 day, Stop date: 04/30/17 3:25: 00 CDT Notes: (Same As: Dulcolax, Bisco-Lax) Start Date: 03/31/17 Stop Date: 04/01/17 Status: DiscontinuedcefTRIAXone + sodium chloride 0.9% INJ 100 mL 1 gm, Route: IVPB, [id number], Dosing Weight 72.4, kg, Start date: 04/01/17 2:00: 00 CDT, Duration: 30 day, Stop date: 04/30/17 2:00:00 CDT Notes: (Same As: Rocephin).Use with 100 mL NS and infuse over 30 min MEDICATION WASTE Product Size: 1000 mgProduct Wasted: ___ mg Start Date: 04/01/17 Stop Date: 04/01/17 Status: DiscontinueddiphenhydrAMINE 12.5 mg, 5 mL, Route: PO, Drug form: LIQ, Q6H, Dosing Weight 72.4, kg, PRN Itching, Start date: 03/31/17 3:26:00 CDT, Duration: 30 day, Stop date: 3:25:00 CDT Notes: (Same as: Benadryl) Start Date: 03/31/17 Stop Date: 04/01/17 Status: Discontinueddocusate 100 mg, 1 cap, Route: PO, Drug form: CAP, BID, Dosing Weight 72.4, kg, Start date: 03/31/17 9:00:00 CDT, Duration: 30 day, Stop date: 04/29/17 17:00:00 CDT Notes: (Same as: Colace) (Do Not Crush) Start Date: 03/31/17 Stop Date: 04/01/17 Status: DiscontinuedMacrobid 100 mg oral capsule 100 mg=1 cap, PO, BID, # 10 cap, 0 Refill(s) Start Date: 04/01/17 Stop Date: 04/06/17 Status: Orderedmorphine Sulfate 4 mg, 1 mL, Route: IVP, Drug form: INJ, Q4H, Dosing Weight 72.4, kg, PRN Pain Score 7-10, Start date: 03/31/17 3:26:00 CDT, Duration: 30 day, Stop date: 04/30 3:25:00 CDT Notes: (Same as:MORPhine Sulfate) Start Date: 03/31/17 Stop Date: 04/01/17 Status: Discontinuedmorphine Sulfate 4 mg, 1 mL, Route: IVP, Drug form: INJ, ONCE, Dosing Weight 70.9, kg, Priority: STAT, Start date: 03/30/17 23:00:00 CDT, Stop date: 03/30/17 23:00:00 CDT Notes: (Same as:MORPhine Sulfate) Start Date: 03/30/17 Stop Date: 03/31/17 Status: Completedondansetron 4 mg, 2 mL, Route: IVP, Drug form: INJ, Q8H, Dosing Weight 72.4, kg, PRN Nausea & Vomiting, Start date: 03/31/17 3:26:00 CDT, Duration: 30 day, Stop date: 04/30/17 3:25:00 CDT Notes: (Same as: Zofran) MEDICATION WASTE Product Size: 4 mgProduct Wasted: ___ mg Start Date: 03/31/17 Stop Date: 04/01/17 Status: Discontinuedpotassium chloride 40 mEq, 2 tab, Route: PO, Drug form: ERTAB, BID, Dosing Weight 72.4, kg, Start date: 03/31/17 21:00:00 CDT, Stop date: 04/01/17 12:00:00 CDT Notes: (Same as: K-Dur 20)"Do Not Crush" With food and full glass of water Start Date: 03/31/17 Stop Date: 04/01/17 Status: CompletedPrenatal Multivitamins with Folic Acid 1 mg oral tablet 1 tab, Route: PO, Drug Form: TAB, Dosing Weight 72.4, kg, Daily, Start date: 16:23:00 CDT, Duration: 30 day, Stop date: 05/01/17 9:00:00 CDT Start Date: 04/01/17 Stop Date: 04/01/17 Status: Discontinuedpromethazine 12.5 mg, 0.5 tab, Route: PO, Drug form: TAB, Q4H, Dosing Weight 72.4, kg, PRN Nausea & Vomiting,Start date: 03/31/17 3:26:00 CDT, Duration: 30 day, Stop date: 04/30/17 3:25:00 CDT Notes: (Same as: Phenergan) Start Date: 03/31/17 Stop Date: 04/01/17 Status: DiscontinuedRocephin + sodium chloride 0.9% INJ 100 mL 1 gm, Route: IVPB, ONCE, Dosing Weight 70.9, kg, Priority: STAT, Start date: 0:36:00 CDT, Stop date: 03/31/17 0:36:00 CDT Notes: (Same As: Rocephin).Use with 100 mL NS and infuse over 30 min MEDICATION WASTE Product Size: 1000 mgProduct Wasted: ___ mg Start Date: 03/31/17 Stop Date: 03/31/17 Status: Completedsimethicone 160 mg, 2 tab, Route: PO, Drug form: CHEWTAB, Q8H, Dosing Weight 72.4, kg, PRN Gas, Start date: 03/31/17 3:26:00 CDT, Duration: 30 day, Stop date: 04/30/17 3: 25:00 CDT Notes: (Same as: Mylicon) Start Date: 03/31/17 Stop Date: 04/01/17 Status: DiscontinuedSodium Chloride 0.9% (Bolus) IV 1,000 mL, 1000 ml/hr, Infuse Over: 1 hr, Route: IV, 1,000, Drug form: INJ, ONCE , Priority: STAT, Dosing Weight 70.9 kg, Start date: 03/30/17 23:01:00 CDT, Duration: 1 doses or times, Stop date: 03/30/17 23:01:00 CDT Start Date: 03/30/17 Stop Date: 03/31/17 Status: Completedtramadol 50 mg, 1 tab, Route: PO, Drug form: TAB, Q4H, Dosing Weight 72.4, kg, PRN Pain Score 4-6, Start date: 03/31/17 3:26:00 CDT, Duration: 30 day, Stop date: 3:25:00 CDT Notes: Not to exceed 400mg/day. (Same As: Ultram) Start Date: 03/31/17 Stop Date: 04/01/17 Status: DiscontinuedZofran 4 mg, 2 mL, Route: IVP, Drug form: INJ, ONCE, Dosing Weight 70.9, kg, Priority: STAT, Start date: 03/30/17 23:01:00 CDT, Stop date: 03/30/17 23:01:00 CDT Notes: (Same as: Zofran) MEDICATION WASTE Product Size: 4 mgProduct Wasted: ___ mg Start Date: 03/30/17 Stop Date: 03/31/17 Status: Completedzolpidem 5 mg, 1 tab, Route: PO, Drug form: TAB, Bedtime, Dosing Weight 72.4, kg, PRN Insomnia, Start date: 03/31/17 3:26:00 CDT, Duration: 30 day, Stop date: 3:25:00 CDT Notes: (Same As: Ambien) Start Date: 03/31/17 Stop Date: 04/01/17 Status: Discontinued Results ELECTROLYTES Most recent to oldest [Reference Range]: 1 2 Sodium Lvl [135-145 mEq/L] 140 mEq/L 140 mEq/L (04/01/17 6:43 AM) (03/30/17 11:06 PM) Potassium Lvl [3.5-5.1 mEq/L] 3.7 mEq/L 3.3 mEq/L (04/01/17 6:43 AM) *LOW* (03/30/17 11:06 PM) Chloride Lvl [95-109 mEq/L] 108 mEq/L 110 mEq/L (04/01/17 6:43 AM) *HI* (03/30/17 11:06 PM) CO2 [24-32 mEq/L] 24 mEq/L 21 mEq/L (04/01/17 6:43 AM) *LOW* (03/30/17 11:06 PM) AGAP [10.0-20.0 mEq/L] 11.7 mEq/L 12.3 mEq/L (04/01/17 6:43 AM) (03/30/17 11:06 PM) CHEM PANEL Most recent to oldest [Reference Range]: 1 2 Creatinine Lvl [0.50-1.40 mg/dL] 0.39 mg/dL 0.43 mg/dL *LOW* *LOW* (04/01/17 6:43 AM) (03/30/17 11:06 PM) eGFR 152 mL/min/1.73m2 1 148 mL/min/1.73m2 2 *NA* *NA* (04/01/17 6:43 AM) (03/30/17 11:06 PM) BUN [7-22 mg/dL] 5 mg/dL 4 mg/dL *LOW* *LOW* (04/01/17 6:43 AM) (03/30/17 11:06 PM) B/C Ratio [6-25] 9 (03/30/17 11:06 PM) Glucose Lvl [70-99 mg/dL] 84 mg/dL 95 mg/dL (04/01/17 6:43 AM) (03/30/17 11:06 PM) Total Protein [6.4-8.4 g/dL] 6.9 g/dL (03/30/17:06 PM) Albumin Lvl [3.5-5.0 g/dL] 3.1 g/dL *LOW* (03/30/17: PM) Globulin [2.7-4.2 g/dL] 3.8 g/dL (03/30/17:06 PM) A/G Ratio [0.7-1.6] 0.8 (03/30/17 11:06 PM) Calcium Lvl [8.5-10.5 mg/dL] 8.7 mg/dL 8.6 mg/dL (04/01/17 6:43 AM) (03/30/17 11:06 PM) ALT [0-65 unit/L] 15 unit/L (03/30/17 11:06 PM) AST [0-37 unit/L] 13 unit/L (03/30/17 11:06 PM) Alk Phos [39-136 unit/L] 80 unit/L (03/30/17 11:06 PM) Bili Total [0.2-1.3 mg/dL] 0.3 mg/dL (03/30/17 11:06 PM) 1Result Comment: The eGFR is calculated [...] eGFR should be multiplied by the estimated BMI.2Result Comment: The eGFR is calculated using the CKD-EPI formula. In most young, healthy individualsthe eGFR will be >90 mL/ min/1.73m2. The [...] eGFR should be multiplied by the estimated BMI.URINE AND STOOL Most recent to oldest [Reference Range]: 1 2 UA Turbidity [Clear] Slight *ABN* (03/31/17 12:22 AM) UA Color [Yellow] Red *ABN* (03/31/17 12:22 AM) UA pH [5.0-8.0] 6.5 (03/31/17 12: AM) UA Spec Grav [<=1.030] 1.016 (03/31/17 AM) UA Glucose [Negative mg/dL] Negative mg/dL *NA* (03/31/17:22 AM) UA Blood [Negative] Large *ABN* (03/31/17: AM) UA Ketones [Negative mg/dL] Negative mg/dL *NA* (03/31/17 AM) UA Protein [Negative mg/dL] 30 mg/dL *ABN* (03/31/17 AM) UA Urobilinogen [0.1-1.0 mg/dL] <=1.0 mg/dL *NA* (03/31/17 AM) UA Bili [Negative] Negative *NA* (03/31/17: AM) UA Leuk Est [Negative] Large *ABN* (03/31/17: AM) UA Nitrite [Negative] Negative (03/31/17: AM) UA WBC [0-5 /HPF] 127 /HPF *HI* (03/31/17:22 AM) UA RBC [0-2 /HPF] >182 /HPF *HI* (03/31/17:22 AM) UA Sq Epi [Few /LPF] Many /LPF *ABN* (03/31/17 12:22 AM) UA Hyal Cast [0-2 /LPF] 10 /LPF *HI* (03/31/17: AM) UA Mucus [None Seen /LPF] Few /LPF *NA* (03/31/17 12:22 AM) HEMATOLOGY Most recent to oldest [Reference Range]: 1 2 WBC [3.7-10.4 K/CMM] 8.0 K/CMM (03/30/17 11:06 PM) RBC [4.20-5.40 M/CMM] 3.57 M/CMM *LOW* (03/30/17 11:06 PM) Hgb [12.0-16.0 g/dL] 10.9 g/dL *LOW* (03/30/17 11:06 PM) Hct [36.0-48.0 %] 31.7 % *LOW* (03/30/17: PM) MCV [80.0-98.0 fL] 88.7 fL (03/30/17: PM) MCH [27.0-31.0 pg] 30.5 pg (03/30/17:06 PM) MCHC [32.0-36.0 g/dL] 34.3 g/dL (03/30/17: PM) RDW [11.5-14.5 %] 13.0 % (03/30/17:06 PM) Platelet [133-450 K/CMM] 215 K/CMM (03/30/17:06 PM) MPV [7.4-10.4 fL] 7.2 fL *LOW* (03/30/17: PM) Segs [45.0-75.0 %] 57.0 % (03/30/17: PM) Bands [0.0-11.0 %] 0.0 % (03/30/17:06 PM) Lymphocytes [20.0-40.0 %] 37.0 % (03/30/17 11:06 PM) Atypical Lymphs [<=0.0 %] 0.0 % (03/30/17: PM) Monocytes [2.0-12.0 %] 5.0 % (03/30/17 11:06 PM) Eosinophils [0.0-4.0 %] 1.0 % (03/30/17:06 PM) Segs-Bands # [1.5-8.1 K/CMM] 4.6 K/CMM (03/30/17 11:06 PM) Lymphocytes # [1.0-5.5 K/CMM] 3.0 K/CMM (03/30/17 11:06 PM) Monocytes # [0.0-0.8 K/CMM] 0.4 K/CMM (03/30/17 11:06 PM) Eosinophils # [0.0-0.5 K/CMM] 0.1 K/CMM (03/30/17 11:06 PM) RBC Morph Normal (5/13/17 11:06 PM) Plt Morph Normal (03/30/17 11:06 PM) Immunizations Given and Recorded Vaccine Date Status Refusal Reason influenza virus vaccine, inactivated 02/14/16 Given Procedures Procedure Date Related Diagnosis Body Site Stent placement Social History Social History Type Response Substance Abuse Use: None. Alcohol Never Smoking Status Current every day smoker; Type: Cigarettes; Tobacco use per day : 2; Previous treatment: None; Ready to change: No; Concerns about tobacco use in household: No; Exposure to Tobacco Smoke None; Other Tobacco Frequency 0.5 PPD; Cigarette Smoking Last 365 Days Yes; Reg Smoking Cessation Counseling Yes Assessment and Plan Extracted from: Title: Clinical Document Author: Hannah Gilbert MD Date: 04/01/17 HD # 1 The patient complains of right flank pain. She has movement, no vaginal bleeding, no leakage of fluid, and no contractions. Vitals and Temp: Vitals Tmp(F) Pulse BP RR SpO2 FIO2 04/01 04:00 98.7 77 102/62 18 97 21% 04/01 00:00 98.8 74 99/65 18 98 21% 03/31 20:00 98.9 74 98/59 18 96 21% 03/31 16:26 98.5 74 99/63 18 99 --- 03/31 11:36 98.6 75 90/46 18 96 --- 24 Hr Tmax: 98.9F (37.17c) at 03/31 20:00 Vital Signs are the last 5 in the past 48 hours. HEENT: normal Chest: CTA Bilaterally CV: RRR, no murmurs Abd: gravid, NT/ND back: right-sided CVA tenderness Ext: No cyanosis, no clubbing, no edema VE: deferred (no lab data in past 24 hours) FHT baseline 130s, category 1, moderate variability for 27 weeks, no contractions renal us negative A: IUP 27 4/7 weeks, probable pyelonephritis, mild hypokalemia P: Awaiting results of the BMP for this am.
--- OUTSIDE RECORDS SUMMARY | 2018-08-25 06:34 | XMS REPORT | Summary of Care ---
:1995 Author Organization [facility] Address [address] [place] [id number]- Encounter HQ Hermelindantr_loreta(FIN) [id number] Date(s): 04/04/17 - 04/08/[address] [address]- Discharge Disposition: Home or Self Care Attending Physician: Mari Chance MD Admitting Physician: Mari Chance MD Vital Signs Most recent to oldest 1 2 3 [Reference Range]: Height 160.02 cm (04/04/17 9:54 PM) Temperature Oral [96.4-99.1 98.9 DegF 98.7 DegF 98.7 DegF DegF] (04/05/17 4:00 PM) (04/05/17 12:00 PM) (04/05/17 8:00 AM) Blood Pressure [90-140/60-90 108/64 mmHg 94/46 mmHg mmHg] (04/08/17 5:00 AM) (04/08/17 1:00 AM) Systolic Blood Pressure 100 mmHg [90-140 mmHg] (04/08/17 9:08 AM) Diastolic Blood Pressure 53 mmHg [60-90 mmHg] *LOW* (04/08/17 9:08 AM) Respiratory Rate [14-20 BRMIN] 16 BRMIN 16 BRMIN 16 BRMIN (04/08/17 9:08 AM) (04/08/17 5:00 AM) (04/08/17 1:00 AM) Peripheral Pulse Rate [60-100 67 bpm 64 bpm 62 bpm bpm] (04/08/17 9:08 AM) (04/08/17 5:00 AM) (04/08/17 1:00 AM) Weight 70.909 kg 68.636 kg (04/04/17 9:54 PM) (04/04/17 2:04 PM) Body Mass Index 27.69 m2 (04/04/17 9:54 PM) Problem List Condition Effective Dates Status Health Status Informant Depression(Confirmed) Resolved Infectious disease in mother Active complicating , childbirth AND/OR puerperium(Confirmed) Kidney stone(Confirmed) 2014 Resolved (Confirmed) Active (Confirmed) 02/13/16 - 06/23/16 8:46 AM Resolved (Confirmed) 08/22/15 - 05/07/16 Resolved (Confirmed) 09/17/16 Active Tobacco use(Confirmed) Active Allergies, Adverse Reactions, Alerts Substance Reaction Severity Status acetaminophen1 Active 1itching Medications Ancef 2 gm, 100 mL, Route: IVPB, Drug form: INJ, ABXQ8H, Dosing Weight 68.636, kg, Start date: 04/04/17 21:00:00 CDT, Duration: 5 day, Stop date: 04/09/17 13:00: 00 CDT, ABX Indication: Urinary Tract Infection Notes: Same as: Ancef Start Date: 04/04/17 Stop Date: 04/08/17 Status: DiscontinuedcefTRIAXone + sodium chloride 0.9% INJ 100 mL 1 gm, Route: IVPB, ONCE, Dosing Weight 68.636, kg, Priority: STAT, Start date: 04/04/17 17:04:00 CDT, Duration: 1 doses or times, Stop date: 04/04/17 17:04:00 CDT, ABX Indication: Urinary Tract Infection Notes: (Same As: Rocephin).Use with 100 mL NS and infuse over 30 min MEDICATION WASTE Product Size: 1000 mgProduct Wasted: ___ mg Start Date: 04/04/17 Stop Date: 04/04/17 Status: CompletedK-Dur 20 40 mEq, 2 tab, Route: PO, Drug form: ERTAB, ONCE, Dosing Weight 70.909, kg, Start date: 04/07/17 5:46:00 CDT, Stop date: 04/07/17 5:46:00 CDT Notes: (Same as: K-Dur 20)"Do Not Crush" With food and full glass of water Start Date: 04/07/17 Stop Date: 04/07/17 Status: CompletedMacrobid 100 mg oral capsule 100 mg=1 cap, PO, Daily, X 30 day, # 30 cap, 0 Refill(s) Start Date: 04/08/17 Stop Date: 05/08/17 Status: Orderedmorphine Sulfate 2 mg, 1 mL, Route: IVP, Drug form: INJ, ONCE, Dosing Weight 68.636, kg, Priority : STAT, Start date: 04/04/17 17:05:00 CDT, Stop date: 04/04/17 17:05:00 CDT Notes: (Same as:MORPhine Sulfate) Start Date: 04/04/17 Stop Date: 04/04/17 Status: Completedmorphine Sulfate 2 mg, 1 mL, Route: IVP, Drug form: INJ, Q4Hnow, Dosing Weight 68.636, kg, Start date: 04/04/17 22:00:00 CDT, Duration: 30 day, Stop date: 05/04/17 18:00:00 CDT Notes: (Same as:MORPhine Sulfate) Start Date: 04/04/17 Stop Date: 04/05/17 Status: Discontinuedmorphine Sulfate 2 mg, 1 mL, Route: IVP, Drug form: INJ, Q4H, Dosing Weight 68.636, kg, PRN Pain Score 1-5, Start date: 04/05/17 7:14:00 CDT, Duration: 30 day, Stop date: 7:13:00 CDT Notes: (Same as:MORPhine Sulfate) Start Date: 04/05/17 Stop Date: 04/06/17 Status: Discontinuedmultivitamin, 1 tab, Route: PO, Drug Form: TAB, Dosing Weight 68.636, kg, Daily, Start date: 04/05/17 9:00:00 CDT,Duration: 30 day, Stop date: 05/04/17 9:00:00 CDT Start Date: 04/05/17 Stop Date: 04/08/17 Status: DiscontinuedNS + KCL 20mEq/L 1000ml (Premix) 1,000 mL 1,000 mL, Rate: 125 ml/hr, Infuse over: 8 hr, Route: IV, Dosing Weight 68.636 kg , Total Volume: 1,000, Start date: 04/04/17 20:47:00 CDT, Duration: 30 day, Stop date: 05/04/17 20:46:00 CDT Notes: PREMIX IV - Do Not AlterWASTE: F/P - Sink; E - Municipal Trash Bin Start Date: 04/04/17 Stop Date: 04/08/17 Status: Discontinuedpromethazine 12.5 mg, 50 mL, Route: IVPB, Drug form: SOLN, Q4H, Dosing Weight 68.636, kg, PRN Nausea & Vomiting, Start date: 04/04/17 21:54:00 CDT, Duration: 30 day, Stop date: 05/04/17 21:53:00 CDT Start Date: 04/04/17 Stop Date: 04/08/17 Status: DiscontinuedSaline Flush 0.9% 10 ml, Route: IVP, Drug Form: INJ, Dosing Weight 68.636, kg, PRN, PRN Line Flush , Start date: 04/04/17 20:47:00 CDT, Duration: 30 day, Stop date: 05/04/17 20:46 :00 CDT Notes: Same as: BD Posiflush Sterile Start Date: 04/04/17 Stop Date: 04/08/17 Status: DiscontinuedSaline Flush 0.9% 10 mL, Route: IVP, Drug Form: INJ, Dosing Weight 68.636, kg, PRN, PRN Line Flush , Start date: 04/04/17 14:08:00 CDT, Duration: 30 day, Stop date: 05/04/17 14:07 :00 CDT Notes: Same as: BD Posiflush Sterile Start Date: 04/04/17 Stop Date: 04/08/17 Status: DiscontinuedUltram 50 mg oral tablet 1 - 2 tabs, PO, Q6H, PRN Pain Score 6-10, X 4 day, # 40 tab, 0 Refill(s) Start Date: 04/08/17 Stop Date: 04/12/17 Status: OrderedUltram 50 mg oral tablet 100 mg, 2 tab, Route: PO, Drug form: TAB, Q6H, Dosing Weight 70.909, kg, PRN Pain Score 4-6, Start date: 04/06/17 8:33:00 CDT, Duration: 30 day, Stop date: 05/06/17 8:32:00 CDT Notes: Not to exceed 400mg/day. (Same As: Ultram) Start Date: 04/06/17 Stop Date: 04/08/17 Status: DiscontinuedUltram 50 mg oral tablet 50 mg, 1 tab, Route: PO, Drug form: TAB, Q4H, Dosing Weight 70.909, kg, PRN Pain Score 1-3, Start date: 04/06/17 8:32:00 CDT, Duration: 30 day, Stop date: 05/06/17 8:31:00 CDT Notes: Not to exceed 400mg/day. (Same As: Ultram) Start Date: 04/06/17 Stop Date: 04/08/17 Status: DiscontinuedZofran ODT 8 mg, 2 tab, Route: PO, Drug form: TABDIS, ONCE, Dosing Weight 68.636, kg, Priority: STAT, Start date: 04/04/17 15:54:00 CDT, Stop date: 04/04/17 15:54:00 CDT Notes: (Same as: Zofran ODT) Start Date: 04/04/17 Stop Date: 04/04/17 Status: Completed Results BLOOD BANK RESULTS Most recent to oldest [Reference Range]: 1 2 3 ABO/Rh B POS *Unknown* (04/05/17 5:29 AM) Antibody Scrn Negative (04/05/17 5:29 AM) Rhig Reqd See Note 1 (04/05/17 5:29 AM) 1Result Comment: 04/05/2017 06:44 CEPRASEK This patient is not a candidate for Rh(O)D immune globulin.ELECTROLYTES Most recent to oldest 1 2 3 [Reference Range]: Sodium Lvl [135-145 mEq/L] 138 mEq/L 143 mEq/L 140 mEq/L (04/07/17 1:00 PM) (04/05/17 5:29 AM) (04/04/17 2:32 PM) Potassium Lvl [3.5-5.1 4.0 mEq/L 3.4 mEq/L 3.4 mEq/L mEq/L] (04/07/17 1:00 PM) *LOW* *LOW* (5/19/17 5:29 AM) (04/04/17 2:32 PM) Chloride Lvl [95-109 mEq/L] 108 mEq/L 111 mEq/L 107 mEq/L (04/07/17 1:00 PM) *HI* (04/04/17 2:32 PM) (04/05/17 5:29 AM) CO2 [24-32 mEq/L] 25 mEq/L 22 mEq/L 26 mEq/L (04/07/17 1:00 PM) *LOW* (04/04/17 2:32 PM) (04/05/17 5:29 AM) AGAP [10.0-20.0 mEq/L] 9.0 mEq/L 13.4 mEq/L 10.4 mEq/L *LOW* (04/05/17 5:29 AM) (04/04/17 2:32 PM) (04/07/17 1:00 PM) CHEM PANEL Most recent to oldest 1 2 3 [Reference Range]: Creatinine Lvl [0.50-1.40 0.38 mg/dL 0.41 mg/dL 0.46 mg/dL mg/dL] *LOW* *LOW* *LOW* (04/07/17 1:00 PM) (04/05/17 5:29 AM) (04/04/17 2:32 PM) eGFR 153 mL/min/1.73m2 1 151 mL/min/1.73m2 2 145 mL/min/1.73m2 3 *NA* *NA* *NA* (04/07/17 1:00 PM) (04/05/17 5:29 AM) (04/04/17 2:32 PM) BUN [7-22 mg/dL] 2 mg/dL 4 mg/dL 3 mg/dL *LOW* *LOW* *LOW* (04/07/17 1:00 PM) (04/05/17 5:29 AM) (04/04/17 2:32 PM) B/C Ratio [6-25] 10 7 (04/05/17 5:29 AM) (04/04/17 2:32 PM) Glucose Lvl [70-99 mg/dL] 77 mg/dL 84 mg/dL 98 mg/dL (04/07/17 1:00 PM) (04/05/17 5:29 AM) (04/04/17 2:32 PM) Total Protein [6.4-8.4 5.7 g/dL 6.9 g/dL g/dL] *LOW* (04/04/17 2:32 PM) (04/05/17 5:29 AM) Albumin Lvl [3.5-5.0 g/dL] 2.5 g/dL 3.2 g/dL *LOW* *LOW* (04/05/17 5:29 AM) (04/04/17 2:32 PM) Globulin [2.7-4.2 g/dL] 3.2 g/dL 3.7 g/dL (04/05/17 5:29 AM) (04/04/17 2:32 PM) A/G Ratio [0.7-1.6] 0.8 0.9 (04/05/17 5:29 AM) (04/04/17 2:32 PM) Calcium Lvl [8.5-10.5 8.3 mg/dL 8.3 mg/dL 8.9 mg/dL mg/dL] *LOW* *LOW* (04/04/17 2:32 PM) (04/07/17 1:00 PM) (04/05/17 5:29 AM) ALT [0-65 unit/L] 12 unit/L 15 unit/L (04/05/17 5:29 AM) (04/04/17 2:32 PM) AST [0-37 unit/L] 11 unit/L 12 unit/L (04/05/17 5:29 AM) (04/04/17 2:32 PM) Alk Phos [39-136 unit/L] 68 unit/L 81 unit/L (04/05/17 5:29 AM) (04/04/17 2:32 PM) Bili Total [0.2-1.3 mg/dL] 0.2 mg/dL 0.3 mg/dL (04/05/17 5:29 AM) (04/04/17 2:32 PM) 1Result Comment: The eGFR is calculated [...] eGFR should be multiplied by the estimated BMI.3Result Comment: The eGFR is calculated using the [...] recent to oldest [Reference Range]: 1 2 3 UA Turbidity [Clear] Slight *ABN* (04/04/17 2:32 PM) UA Color [Yellow] Yellow *NA* (04/04/17 2:32 PM) UA pH [5.0-8.0] 7.0 (04/04/17 2:32 PM) UA Spec Grav [<=1.030] 1.009 (04/04/17 2:32 PM) UA Glucose [Negative mg/dL] Negative mg/dL *NA* (04/04/17 2:32 PM) UA Blood [Negative] Large *ABN* (04/04/17 2:32 PM) UA Ketones [Negative mg/dL] Negative mg/dL *NA* (04/04/17 2:32 PM) UA Protein [Negative mg/dL] 20 mg/dL *ABN* (04/04/17 2:32 PM) UA Urobilinogen [0.1-1.0 mg/dL] <=1.0 mg/dL *NA* (04/04/17 2:32 PM) UA Bili [Negative] Negative *NA* (04/04/17 2:32 PM) UA Leuk Est [Negative] Large *ABN* (04/04/17 2:32 PM) UA Nitrite [Negative] Negative (04/04/17 2:32 PM) UA WBC [0-5 /HPF] 25 /HPF *HI* (04/04/17 2:32 PM) UA RBC [0-2 /HPF] >182 /HPF *HI* (04/04/17 2:32 PM) UA Bacteria [None Seen /HPF] Occasional /HPF *NA* (04/04/17 2:32 PM) UA Sq Epi [Few /LPF] Many /LPF *ABN* (04/04/17 2:32 PM) UA Mucus [None Seen /LPF] Few /LPF *NA* (04/04/17 2:32 PM) HEMATOLOGY Most recent to oldest [Reference Range]: 1 2 3 WBC [3.7-10.4 K/CMM] 7.7 K/CMM 9.1 K/CMM (04/05/17 5:29 AM) (04/04/17 2:32 PM) RBC [4.20-5.40 M/CMM] 3.14 M/CMM 3.50 M/CMM *LOW* *LOW* (04/05/17 5:29 AM) (04/04/17 2:32 PM) Hgb [12.0-16.0 g/dL] 9.6 g/dL 10.6 g/dL *LOW* *LOW* (04/05/17 5:29 AM) (04/04/17 2:32 PM) Hct [36.0-48.0 %] 27.9 % 31.3 % *LOW* *LOW* (04/05/17 5:29 AM) (04/04/17 2:32 PM) MCV [80.0-98.0 fL] 88.9 fL 89.4 fL (04/05/17 5:29 AM) (04/04/17 2:32 PM) MCH [27.0-31.0 pg] 30.6 pg 30.3 pg (04/05/17 5:29 AM) (04/04/17 2:32 PM) MCHC [32.0-36.0 g/dL] 34.5 g/dL 33.9 g/dL (04/05/17 5:29 AM) (04/04/17 2:32 PM) RDW [11.5-14.5 %] 13.0 % 13.1 % (04/05/17 5:29 AM) (04/04/17 2:32 PM) Platelet [133-450 K/CMM] 170 K/CMM 207 K/CMM (04/05/17 5:29 AM) (04/04/17 2:32 PM) MPV [7.4-10.4 fL] 7.6 fL 7.5 fL (04/05/17 5:29 AM) (04/04/17 2:32 PM) Segs [45.0-75.0 %] 55.0 % 71.4 % (04/05/17 5:29 AM) (04/04/17 2:32 PM) Lymphocytes [20.0-40.0 %] 35.9 % 22.0 % (04/05/17 5:29 AM) (04/04/17 2:32 PM) Monocytes [2.0-12.0 %] 7.6 % 6.0 % (04/05/17 5:29 AM) (04/04/17 2:32 PM) Eosinophils [0.0-4.0 %] 1.0 % 0.4 % (04/05/17 5:29 AM) (04/04/17 2:32 PM) Basophils [0.0-1.0 %] 0.5 % 0.2 % (04/05/17 5:29 AM) (04/04/17 2:32 PM) Segs-Bands # [1.5-8.1 K/CMM] 4.2 K/CMM 6.5 K/CMM (04/05/17 5:29 AM) (04/04/17 2:32 PM) Lymphocytes # [1.0-5.5 K/CMM] 2.8 K/CMM 2.0 K/CMM (04/05/17 5:29 AM) (04/04/17 2:32 PM) Monocytes # [0.0-0.8 K/CMM] 0.6 K/CMM 0.5 K/CMM (04/05/17 5:29 AM) (04/04/17 2:32 PM) Eosinophils # [0.0-0.5 K/CMM] 0.1 K/CMM (04/05/17 5:29 AM) Anisocyte [None Seen] 1+ *ABN* (04/04/17 2:32 PM) Macrocyte [None Seen] 1+ *ABN* (04/04/17 2:32 PM) Plt Morph Normal (04/04/17 2:32 PM) Immunizations Given and Recorded Vaccine Date [...] Clinical Document Author: Hannah Gilbert MD Date: 04/07/17 HD # 1 Patient without complaints. The pain is under control. She has movement, no vaginal bleeding, no leakage of fluid, and contractions. Vitals and Temp: Vitals Tmp(F) Pulse BP RR SpO2 FIO2 04/07 04:05 98.2 64 97/56 18 97 --- 04/07 01:32 98.4 67 107/62 18 98 --- 04/06 19:45 98.2 78 108/63 20 99 --- 04/06 15:44 98.4 69 111/61 18 99 --- 04/06 11:53 98.8 73 102/57 18 98 --- 24 Hr Tmax: 98.8F (37.11c) at 04/06 11:53 Vital Signs are the last 5 in the past 48 hours. abdomen: gravid, NT/ND very mild right-sided CVA tenderness (no lab data in past 24 hours) FHT category 1 A: IUP 28 weeks, right flank pain, hematuria, hypokalemia P: potassium replacement, awaiting BMP. Urine culture is negative so far. Extracted from: Title: Clinical Document Author: Tino Patterson MD Date: 04/05/17 Attending: Mari Chance MD Service: [employer] Supervisor Service Code status: None Specified=FULL CODE Reason for Admission: 28WKS PREG, FLANK PAIN Working DRG: None Documented Isolation: None Documented Consulting Physicians: Rodolfo Naranjo MD Office: Service: Urology Prieto Manning MD Office: Service: Urology Tino Patterson MD Office: Service: Urology Mari Chance MD Office: Service: [employer] Supervisor Allergies (1) Active Reaction acetaminophen None documented History of Present Illness: 21 y.o. female who presented to the hospital with right sided flank pain, gross hematuria, nausea, vomiting, and irritative urinary syptoms. She admits to fevers and chills at home, though n o fevers have been noted during this admission. A renal U/S was performed which did not reveal any evidence of hydroureteronephrosis. Her U/A did demonstrated pyuria with +LE and blood. Currently, her p ain is controlled with morphine and she has required it only once during this shift. She had similar issues in the past with per previous and required stent placement. Past Medical History: Depression Kidney stone Social History: Alcohol Details: Never Tobacco Details: Use: Current every day smoker. Tobacco smoke exposure: Lives with someone who smokes. Did the Patient Smoke Cigarettes Anytime During the Last 365 Days? Yes. Cessation Counseling Provided? No.; Comment(s): same Details: Use: Current every day smoker. Type: Cigarettes. Ready to change: No. Tobacco smoke exposure: Lives with someone who smokes. Did the Patient Smoke Cigarettes Anytime During the Last 365 Days? Yes. Cessation Counseling Provided? No. Details: Use: Current every day smoker. Tobacco smoke exposure: Lives with someone who smokes. Did the Patient Smoke Cigarettes Anytime During the Last 365 Days? No. Cessation Counseling Provided? No. Details: Use: Current every day smoker. Type: Cigarettes. Ready to change: No. Household tobacco concerns: Yes. Tobacco smoke exposure: Lives with someone who smokes. Did the Patient Smoke Cigarett es Anytime During the Last 365 Days? Yes. Cessation Counseling Provided? Yes. ; Comment(s): Instructed needs to quit smoking Details: Use: Current every day smoker. Type: Cigarettes. 4 per day. Previous treatment: None. Ready to change: No. Household tobacco concerns: No. Tobacco smoke exposure: None. Did the Patient S moke Cigarettes Anytime During the Last 365 Days? No. Cessation Counseling Provided? No. Details: Use: Current every day smoker. Tobacco smoke exposure: Lives with someone who smokes. Did the Patient Smoke Cigarettes Anytime During the Last 365 Days? Yes. Cessation Counseling Provided? Yes. Details: Use: Current every day smoker. Tobacco smoke exposure: Lives with someone who smokes. Did the Patient Smoke Cigarettes Anytime During the Last 365 Days? Yes. Cessation Counseling Provided? No. Details: Use: Current every day smoker. Type: Cigarettes. Tobacco smoke exposure: Lives with someone who smokes. Did the Patient Smoke Cigarettes Anytime During the Last 365 Days? Yes. Cessation Counseling Provided? No. Details: Use: Current every day smoker. Tobacco smoke exposure: Lives with someone who smokes. Did the Patient Smoke Cigarettes Anytime During the Last 365 Days? Yes. Cessation Counseling Provided? No. Details: Use: Current some day smoker. Type: Cigarettes. 4 per day. 10 year( s). Previous treatment: None. Ready to change: No. Household tobacco concerns : No. Tobacco smoke exposure: smokes herse lf. Did the Patient Smoke Cigarettes Anytime During the Last 365 Days? Yes. Cessation Counseling Provided? No. Details: Use: Current every day smoker. Type: Cigarettes. 4 per day. Tobacco smoke exposure: None. Did the Patient Smoke Cigarettes Anytime During the Last 365 Days? Yes. Cessation Counseling Provided? Yes. Details: Use: Current some day smoker. Type: Cigarettes. 2 per day. Previous treatment: None. Ready to change: Yes. Tobacco smoke exposure: Lives with someone who smokes. Did the Patient Smoke Cig arettes Anytime During the Last 365 Days? Yes. Cessation Counseling Provided? No. Details: Use: Current every day smoker. Type: Cigarettes. 2 per day. Previous treatment: None. Ready to change: No. Household tobacco concerns: No. Tobacco smoke exposure: None. Other Tobacco Jose quency 0.5 PPD. Did the Patient Smoke Cigarettes Anytime During the Last 365 Days? Yes. Cessation Counseling Provided? Yes. Substance Abuse Details: Use: None. Past Surgical History: Stent placement Family History: Father: High blood pressure Mother: Anxiety; Depression Sister: Asthma Objective: Vital Signs (last 24 hrs) Last Charted Temp Oral 98.7 DegF (APRIL 05 08:00) Heart Rate Peripheral 62 bpm (APRIL 05 08:00) Resp Rate 18 BRMIN (APRIL 05 08:00) SBP 100 mmHg (APRIL 05 08:00) DBP 63 mmHg (APRIL 05 08:00) SpO2 97 % (APRIL 05 08:00) Weight 70.909 kg (APRIL 04 21:54) Height 160.02 cm (APRIL 04 21:54) BMI 27.69 (APRIL 04 21:54) Physical Exam: NAD abd NT, ND mild to mod R CVAT ext wwp b/l I/O Intake Output Balance 04/05/2017 7a-3p 1.00 0.00 1.00 As of 12:30 3p-11p 0.00 0.00 0.00 11p-7a 0.00 0.00 0.00 Totals 1.00 0.00 1.00 04/04/2017 7a-3p 0.00 0.00 0.00 3p-11p 181.00 0.00 181.00 11p-7a 1205.33 300.00 905.33 Totals 1386.33 300.00 1086.33 04/03/2017 7a-3p 0.00 0.00 0.00 3p-11p 0.00 0.00 0.00 11p-7a 0.00 0.00 0.00 Totals 0.00 0.00 0.00 Medications (7) Active Scheduled: (2) ceFAZolin 2gm / NS 100ml (Premixed) 2 gm 100 mL, IVPB, ABXQ8H multivitamin w/FA 0.8 mg Tab 1 tab, PO, Daily Continuous: (1) NS + KCL 20mEq/L 1000ml (Premix) 1,000 mL 1,000 mL, IV, 125 ml/hr PRN: (4) MORPhine sulfate PF 2 mg/ml CARP 2 mg 1 mL, IVP, Q4H promethazine 12.5 mg / NS 50 ml 12.5 mg 50 mL, IVPB, Q4H sodium chloride 0.9% 10ml sterile flush syr BD 10 mL, IVP, PRN sodium chloride 0.9% 10ml sterile flush syr BD 10 ml, IVP, PRN Labs (Last four charted values) WBC 7.7 (APRIL 05) 9.1 (APRIL 04) Hgb L 9.6 (APRIL 05) L 10.6 (APRIL 04) Hct L 27.9 (APRIL 05) L 31.3 (APRIL 04) Plt 170 (APRIL 05) 207 (APRIL 04) Na 143 (APRIL 05) 140 (APRIL 04) K L 3.4 (APRIL 05) L 3.4 (APRIL 04) CO2 L 22 (APRIL 05) 26 (APRIL 04) Cl H 111 (APRIL 05) 107 (APRIL 04) Cr L 0.41 (APRIL 05) L 0.46 (APRIL 04) BUN L 4 (APRIL 05) L 3 (APRIL 04) Glucose Random 84 (APRIL 05) 98 (APRIL 04) Ca L 8.3 (APRIL 05) 8.9 (APRIL 04) Assessment & Plan: 21 y.o. F with likely complicated UTI vs. pyelonephritis. U/S does not demonstrated any evidence of obstruction. She appears clinically stable. -No indication for ureteral stent placement at this time -pain control -abx -FU on urine culture -If patient's clinical picture worsens (fevers, leukocytosis, HD instability, pain), may consider another U/S to evaluate for obstruction. Currently, no evidence of obstructive uropathy. -Please call with questions. Thank you for involving me in the care of this patient.
--- OUTSIDE RECORDS SUMMARY | 2018-08-25 06:35 | XMS REPORT | Summary of Care ---
:1995 Author Organization [facility] Address [address], [place] [address]- Encounter HQ Mike_loreta(FIN) [id number] Date(s): 03/16/18 - 03/16/[address] [address]- Discharge Disposition: Home or Self Care Attending Physician: Darvin Fischer MD Vital Signs Most recent to oldest [Reference Range]: 1 Height 167.64 cm (03/16/18 10:07 AM) Temperature Oral [96.4-99.1 DegF] 98.6 DegF (03/16/18 10:07 AM) Blood Pressure [90-140/60-90 mmHg] 107/65 mmHg (03/16/18 10:07 AM) Respiratory Rate [14-20 BRMIN] 20 BRMIN (03/16/18 10:07 AM) Peripheral Pulse Rate [60-100 bpm] 81 bpm (03/16/18 10:07 AM) Weight 59 kg (03/16/18 10:07 AM) Body Mass Index 20.99 m2 (03/16/18 10:07 AM) Problem List Condition Effective Dates Status Health Status Informant Depression(Confirmed) Resolved Infectious disease in mother Active complicating , childbirth AND/OR puerperium(Confirmed) Kidney stone(Confirmed) 2014 Resolved (Confirmed) Active (Confirmed) 02/13/16 - 06/23/16 8:46 AM Resolved (Confirmed) 08/22/15 - 05/07/16 Resolved (Confirmed) 09/17/16 - 07/20/17 3:12 Resolved PM Tobacco use(Confirmed) Active Allergies, Adverse Reactions, Alerts Substance Reaction Severity Status acetaminophen1 Active 1itching Medications ketOROLAC 30 mg, Route: IVP, Drug form: INJ, ONCE, Dosing Weight 59, kg, Priority: STAT, Start date: 03/16/18 12:06:00 CDT, Stop date: 03/16/18 12:06:00 CDT Start Date: 03/16/18 Stop Date: 03/16/18 Status: Completedmorphine Sulfate 4 mg, 1 mL, Route: IVP, Drug form: SOLN, ONCE, Dosing Weight 59, kg, Priority: STAT, Start date: 03/16/18 11:36:00 CDT, Stop date: 03/16/18 11:36:00 CDT Notes: (Same as:MORPhine Sulfate) Start Date: 03/16/18 Stop Date: 03/16/18 Status: DiscontinuedRocephin + Sodium Chloride 0.9% IV 100 mL 1 gm, Route: IVPB, ONCE, Dosing Weight 59, kg, Priority: STAT, Start date: 03/16 13:18:00 CDT, Stop date: 03/16/18 13:18:00 CDT, ABX Indication: Urinary Tract Infection Notes: (Same As: Rocephin).Use with 100 mL NS and infuse over 30 min MEDICATION WASTE Product Size: 1000 mgProduct Wasted: ___ mg Start Date: 03/16/18 Stop Date: 03/16/18 Status: OrderedSodium Chloride 0.9% (Bolus) IV 1,000 mL, 1000 ml/hr, Infuse Over: 1 hr, Route: IV, 1,000, Drug form: INJ, ONCE , Priority: STAT, Dosing Weight 59 kg, Start date: 03/16/18 11:36:00 CDT, Stop date: 03/16/18 11:36:00 CDT Start Date: 03/16/18 Stop Date: 03/16/18 Status: Completed Results ELECTROLYTES Most recent to oldest [Reference Range]: 1 Sodium Lvl [135-145 mEq/L] 143 mEq/L (03/16/18 11:40 AM) Potassium Lvl [3.5-5.1 mEq/L] 3.3 mEq/L *LOW* (03/16/18 11:40 AM) Chloride Lvl [95-109 mEq/L] 110 mEq/L *HI* (03/16/18 11:40 AM) CO2 [24-32 mEq/L] 28 mEq/L (03/16/18 11:40 AM) AGAP [10.0-20.0 mEq/L] 8.3 mEq/L *LOW* (03/16/18 11:40 AM) CHEM PANEL Most recent to oldest [Reference Range]: 1 Creatinine Lvl [0.50-1.40 mg/dL] 0.50 mg/dL (03/16/18 11:40 AM) eGFR 140 mL/min/1.73m2 1 *NA* (03/16/18 11:40 AM) BUN [7-22 mg/dL] 10 mg/dL (03/16/18 11:40 AM) Glucose Lvl [70-99 mg/dL] 96 mg/dL (03/16/18 11:40 AM) Total Protein [6.4-8.4 g/dL] 7.6 g/dL (03/16/18 11:40 AM) Albumin Lvl [3.5-5.0 g/dL] 3.3 g/dL *LOW* (03/16/18 11:40 AM) Globulin [2.7-4.2 g/dL] 4.3 g/dL *HI* (03/16/18 11:40 AM) A/G Ratio [0.7-1.6] 0.8 (03/16/18 11:40 AM) Calcium Lvl [8.5-10.5 mg/dL] 8.6 mg/dL (03/16/18 11:40 AM) ALT [0-65 unit/L] 21 unit/L (03/16/18 11:40 AM) AST [0-37 unit/L] 15 unit/L (03/16/18 11:40 AM) Alk Phos [39-136 unit/L] 81 unit/L (03/16/18 11:40 AM) Bili Total [0.2-1.3 mg/dL] 0.3 mg/dL (03/16/18 11:40 AM) Bili Direct [0.0-0.3 mg/dL] <0.1 mg/dL (03/16/18 11:40 AM) Bili Indirect [0.0-1.0] Unable to Calculate *NA* (03/16/18 11:40 AM) 1Result Comment: The eGFR is calculated using the CKD-EPI formula. In most young , healthy individualsthe eGFR will be >90 mL/min/1.73m2. The eGFR declines with age. An eGFR of 60-89 may be normal insome populations, particularly the elderly, for whom the [...] eGFR should be multiplied by the estimated BMI.ENDOCRINOLOGY Most recent to oldest [Reference Range]: 1 S Preg [Negative] Negative *NA* (03/16/18 11:40 AM) URINE AND STOOL Most recent to oldest [Reference Range]: 1 UA Turbidity [Clear] Moderate *ABN* (03/16/18 12:38 PM) UA Color Yellow *NA* (03/16/18 12:38 PM) UA pH [5.0-8.0] 6.0 (03/16/18 12:38 PM) UA Spec Grav [<=1.030] 1.017 (03/16/18 12:38 PM) UA Glucose [Negative mg/dL] Negative mg/dL *NA* (03/16/18 12:38 PM) UA Blood [Negative] Large *ABN* (03/16/18 12:38 PM) UA Ketones [Negative mg/dL] Negative mg/dL *NA* (03/16/18 12:38 PM) UA Protein [Negative mg/dL] Negative mg/dL (03/16/18 12:38 PM) UA Urobilinogen [0.1-1.0 mg/dL] 2.0 mg/dL *HI* (03/16/18 12:38 PM) UA Bili [Negative] Negative *NA* (03/16/18 12:38 PM) UA Leuk Est [Negative] Large *ABN* (03/16/18 12:38 PM) UA Nitrite [Negative] Positive *ABN* (03/16/18 12:38 PM) UA WBC [0-5 /HPF] 32 /HPF *HI* (03/16/18 12:38 PM) UA RBC [0-2 /HPF] 33 /HPF *HI* (03/16/18 12:38 PM) UA Bacteria [None Seen /HPF] Few /HPF *NA* (03/16/18 12:38 PM) UA Sq Epi [Few /LPF] Many /LPF *ABN* (03/16/18 12:38 PM) UA Mucus [None Seen /LPF] Few /LPF *NA* (03/16/18 12:38 PM) HEMATOLOGY Most recent to oldest [Reference Range]: 1 WBC [3.7-10.4 K/CMM] 7.9 K/CMM (03/16/18 11:40 AM) RBC [4.20-5.40 M/CMM] 3.59 M/CMM *LOW* (03/16/18 11:40 AM) Hgb [12.0-16.0 g/dL] 9.4 g/dL *LOW* (03/16/18 11:40 AM) Hct [36.0-48.0 %] 29.4 % *LOW* (03/16/18 11:40 AM) MCV [80.0-98.0 fL] 82.0 fL (03/16/18 11:40 AM) MCH [27.0-31.0 pg] 26.1 pg *LOW* (03/16/18 11:40 AM) MCHC [32.0-36.0 g/dL] 31.8 g/dL *LOW* (03/16/18 11:40 AM) RDW [11.5-14.5 %] 17.1 % *HI* (03/16/18 11:40 AM) MPV [7.4-10.4 fL] 7.1 fL *LOW* (03/16/18 11:40 AM) Platelet [133-450 K/CMM] 440 K/CMM (03/16/18 11:40 AM) Segs [45.0-75.0 %] 72.8 % (03/16/18 11:40 AM) Lymphocytes [20.0-40.0 %] 18.9 % *LOW* (03/16/18 11:40 AM) Monocytes [2.0-12.0 %] 7.3 % (03/16/18 11:40 AM) Eosinophils [0.0-4.0 %] 0.5 % (03/16/18 11:40 AM) Basophils [0.0-1.0 %] 0.5 % (03/16/18 11:40 AM) Segs-Bands # [1.5-8.1 K/CMM] 5.7 K/CMM (03/16/18 11:40 AM) Lymphocytes # [1.0-5.5 K/CMM] 1.5 K/CMM (03/16/18 11:40 AM) Monocytes # [0.0-0.8 K/CMM] 0.6 K/CMM (03/16/18 11:40 AM) Eosinophils # [0.0-0.5 K/CMM] 0.0 K/CMM (03/16/18 11:40 AM) Basophils # [0.0-0.2 K/CMM] 0.0 K/CMM (03/16/18 11:40 AM) Immunizations Given and Recorded Vaccine Date Status Refusal Reason pneumococcal 13-valent vaccine 12/25/17 Given influenza virus vaccine, inactivated 12/24/17 Given influenza virus vaccine, inactivated 02/14/16 Given Procedures Procedure Date Related Diagnosis Body Site Status Stent placement Completed Vaginal delivery, medical personnel Completed present Social History Social History Type Response Substance Abuse Use: None. Employment/School Status: Employed. 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
--- OUTSIDE RECORDS SUMMARY | 2018-08-25 06:35 | XMS REPORT | Summary of Care ---
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
--- OUTSIDE RECORDS SUMMARY | 2018-08-25 06:35 | XMS REPORT | Summary of Care ---
:1995 Author Organization [facility] Address [address] [place] [address]- Encounter HQ Encntr_alias(FIN) [id number] Date(s): 03/28/17 - 03/29/[address] Professional Services provided by [facility] [place] [address]- Discharge Diagnosis: Accidental fall Discharge Disposition: Home or Self Care Attending Physician: Camilla Morrison MD Vital Signs Most recent to oldest 1 2 3 [Reference Range]: Height 160.02 cm 160.02 cm (03/28/17 5:53 PM) (03/28/17 5:21 PM) Temperature Oral [96.4-99.1 98.3 DegF 98.4 DegF DegF] (03/28/17 5:53 PM) (03/28/17 5:21 PM) Blood Pressure [90-140/60-90 90/53 mmHg 105/53 mmHg 111/55 mmHg mmHg] (03/29/17 12:00 AM) (03/28/17 11:03 PM) (03/28/17 10:45 PM) Respiratory Rate [14-20 18 BRMIN 18 BRMIN BRMIN] (03/28/17 5:53 PM) (03/28/17 5:21 PM) Peripheral Pulse Rate 72 bpm 93 bpm [60-100 bpm] (03/28/17 5:53 PM) (03/28/17 5:21 PM) Weight 70.909 kg 70.909 kg (03/28/17 5:53 PM) (03/28/17 5:21 PM) Body Mass Index 27.69 m2 27.69 m2 (03/28/17 5:53 PM) (03/28/17 5:21 PM) Problem List Condition Effective Dates Status Health Status Informant Depression(Confirmed) Resolved Infectious disease in mother Active complicating , childbirth AND/OR puerperium(Confirmed) Kidney stone(Confirmed) 2014 Resolved (Confirmed) Active (Confirmed) 02/13/16 - 06/23/16 8:46 AM Resolved Tobacco use(Confirmed) Active Allergies, Adverse Reactions, Alerts Substance Reaction Severity Status acetaminophen1 Active 1itching Medications Flexeril 10 mg, 1 tab, Route: PO, Drug form: TAB, ONCE, Dosing Weight 70.909, kg, Priority: STAT, Start date:03/28/17 22:14:00 CDT, Stop date: 03/28/17 22:14:00 CDT Notes: (Same As: Flexeril) Start Date: 03/28/17 Stop Date: 03/28/17 Status: CompletedFlexeril 10 mg, 1 tab, Route: PO, Drug form: TAB, ONCE, Dosing Weight 70.909, kg, Priority: STAT, Start date:03/28/17 21:20:00 CDT, Stop date: 03/28/17 21:20:00 CDT Notes: (Same As: Flexeril) Start Date: 03/28/17 Stop Date: 03/28/17 Status: Orderedtramadol 50 mg oral tablet 50 mg, 1 tab, Route: PO, Drug form: TAB, ONCE, Dosing Weight 70.909, kg, Priority: STAT, Start date:03/28/17 22:14:00 CDT, Stop date: 03/28/17 22:14:00 CDT Notes: Not to exceed 400mg/day. (Same As: Ultram) Start Date: 03/28/17 Stop Date: 03/28/17 Status: Completedtramadol 50 mg oral tablet 50 mg, 1 tab, Route: PO, Drug form: TAB, ONCE, Dosing Weight 70.909, kg, Priority: STAT, Start date:03/28/17 21:55:00 CDT, Stop date: 03/28/17 21:55:00 CDT Notes: Not to exceed 400mg/day. (Same As: Ultram) Start Date: 03/28/17 Stop Date: 03/28/17 Status: Ordered Results BLOOD BANK RESULTS Most recent to oldest [Reference Range]: 1 ABO/Rh B POS *Unknown* (03/28/17 8:22 PM) Antibody Scrn Negative (03/28/17 8:22 PM) Immunizations Given and Recorded Vaccine Date [...]
--- OUTSIDE RECORDS SUMMARY | 2018-08-25 06:35 | XMS REPORT | Summary of Care ---
:1995 Author Organization [facility] Address [address] [place] [address]- Encounter HQ Sacha(FIN) [id number] Date(s): 01/11/18 - 01/11/[address] [address]- Encounter Diagnosis Tubulo-interstitial nephritis, not specified as acute or chronic (Final) - Nicotine dependence, cigarettes, uncomplicated (Final) - Discharge Disposition: Home or Self Care Attending Physician: Luz Maria Zaman DO Vital Signs Most recent to oldest 1 2 3 [Reference Range]: Height 160.02 cm (01/11/18 1:23 AM) Blood Pressure [90-140/60-90 95/48 mmHg 95/55 mmHg 87/48 mmHg mmHg] (01/11/18 5:33 AM) (01/11/18 5:07 AM) *LOW* (01/11/18 4:39 AM) Respiratory Rate [14-20 BRMIN] 18 BRMIN 18 BRMIN 18 BRMIN (01/11/18 5:33 AM) (01/11/18 5:07 AM) (01/11/18 4:39 AM) Peripheral Pulse Rate [60-100 82 bpm bpm] (01/11/18 1:23 AM) Weight 58.438 kg (01/11/18 1:23 AM) Body Mass Index 22.82 m2 (01/11/18 1:23 AM) Problem List Condition Effective Dates Status Health Status Informant Depression(Confirmed) Resolved Infectious disease in mother Active complicating , childbirth AND/OR puerperium(Confirmed) Kidney stone(Confirmed) 2014 Resolved (Confirmed) Active (Confirmed) 02/13/16 - 06/23/16 8:46 AM Resolved (Confirmed) 08/22/15 - 05/07/16 Resolved (Confirmed) 09/17/16 - 07/20/17 3:12 Resolved PM Tobacco use(Confirmed) Active Allergies, Adverse Reactions, Alerts Substance Reaction Severity Status acetaminophen1 Active 1itching Medications Keflex 500 mg oral capsule 500 mg=1 cap, PO, QID, X 10 day, # 40 cap, 0 Refill(s) Start Date: 01/11/18 Stop Date: 01/21/18 Status: CompletedketOROLAC 15 mg, 0.5 mL, Route: IVP, Drug form: INJ, ONCE, Dosing Weight 58.438, kg, Priority: STAT, Start date: 01/11/18 2:44:00 [employer]ENDER, Stop date: 01/11/18 2:44:00 [employer] CLE[employer]ING [employer]ACHINE TENDER Notes: (Same as:Toradol) IV bolus must be given >15 seconds. Give IM administration slowly and deeply into the muscle.Not for use > 4 days MEDICATION WASTE Product Size: 30 mgProduct Wasted: ___ mg Start Date: 01/11/18 Stop Date: 01/11/18 Status: CompletedNS (Bolus) IV 1,000 mL, 1,000 ml/hr, Infuse Over: 1 hr, Route: IV, ONCE, Priority: STAT, Dosing Weight 58.438 kg, Start date: 01/11/18 3:40:00 [employer], Stop date: 01/11/18 3 :40:00 [employer]ER Start Date: 01/11/18 Stop Date: 01/11/18 Status: Completedondansetron 4 mg, 2 mL, Route: IVP, Drug form: INJ, ONCE, Dosing Weight 58.438, kg, Priority : STAT, Start date: 01/11/18 2:05:00 [employer] MACH[employer]ENDER, Stop date: 01/11/18 2:05:00 [employer] CLE[employer] MACHINE TENDER Notes: (Same as: Zofran) MEDICATION WASTE Product Size: 4 mgProduct Wasted: ___ mg Start Date: 01/11/18 Stop Date: 01/11/18 Status: CompletedRocephin + sterile water 10 mL 1 gm, Route: IVPB, ONCE, Dosing Weight 58.438, kg, Priority: STAT, Start date: 01/11/18 3:40:00 [employer] MACHINE TENDER,Stop date: 01/11/18 3:40:00 [employer] M[employer]INE TENDER, ABX Indication: Urinary Tract Infection Notes: (Same As: Rocephin).Use with 100 mL NS and infuse over 30 min MEDICATION WASTE Product Size: 1000 mgProduct Wasted: ___ mg Start Date: 01/11/18 Stop Date: 01/11/18 Status: CompletedSaline Flush 0.9% 10 mL, Route: IVP, Drug Form: INJ, Dosing Weight 58.438, kg, PRN, PRN Line Flush , Start date: 01/11/18 2:05:00 [employer]ER, Duration: 30 day, Stop date: 02/10/18 3:04: 00 CDT Notes: Same as: BD Posiflush Sterile Start Date: 01/11/18 Stop Date: 01/11/18 Status: DiscontinuedSodium Chloride 0.9% (Bolus) IV 1,000 mL, 1000 ml/hr, Infuse Over: 1 hr, Route: IV, 1,000, Drug form: INJ, ONCE , Priority: STAT, Dosing Weight 58.438 kg, Start date: 01/11/18 3:43:00 [employer] M[employer]INE TENDER, Stop date: 01/11/18 3:43:00 [employer] CLE[employer] M[employer]INE TENDER Start Date: 01/11/18 Stop Date: 01/11/18 Status: CompletedSodium Chloride 0.9% (Bolus) IV 1,000 mL, 1000 ml/hr, Infuse Over: 1 hr, Route: IV, 1,000, Drug form: INJ, ONCE , Priority: STAT, Dosing Weight 58.438 kg, Start date: 01/11/18 2:05:00 [employer] CLE[employer] MACHINE TENDER, Stop date: 01/11/18 2:05:00 [employer] CLE[employer]ING M[employer]INE TENDER Start Date: 01/11/18 Stop Date: 01/11/18 Status: CompletedZofran 4 mg, 2 mL, Route: IVP, Drug form: INJ, ONCE, Dosing Weight 58.438, kg, Priority : STAT, Start date: 01/11/18 2:44:00 GL[employer] CLE[employer]ING MACHINE TENDER, Stop date: 01/11/18 2:44:00 [employer]ASS CLE[employer]ING MACHINE TENDER Notes: (Same as: Zofran) MEDICATION WASTE Product Size: 4 mgProduct Wasted: ___ mg Start Date: 01/11/18 Stop Date: 01/11/18 Status: Completed Results ELECTROLYTES Most recent to oldest [Reference Range]: 1 Sodium Lvl [135-145 mEq/L] 140 mEq/L (01/11/18 2:14 AM) Potassium Lvl [3.5-5.1 mEq/L] 3.4 mEq/L *LOW* (01/11/18 2:14 AM) Chloride Lvl [95-109 mEq/L] 107 mEq/L (01/11/18 2:14 AM) CO2 [24-32 mEq/L] 27 mEq/L (01/11/18 2:14 AM) AGAP [10.0-20.0 mEq/L] 9.4 mEq/L *LOW* (01/11/18 2:14 AM) CHEM PANEL Most recent to oldest [Reference Range]: 1 Creatinine Lvl [0.50-1.40 mg/dL] 0.61 mg/dL (01/11/18 2:14 AM) eGFR 131 mL/min/1.73m2 1 *NA* (01/11/18 2:14 AM) BUN [7-22 mg/dL] 9 mg/dL (01/11/18 2:14 AM) B/C Ratio [6-25] 15 (01/11/18 2:14 AM) Glucose Lvl [70-99 mg/dL] 100 mg/dL *HI* (01/11/18 2:14 AM) Total Protein [6.4-8.4 g/dL] 7.4 g/dL (01/11/18 2:14 AM) Albumin Lvl [3.5-5.0 g/dL] 4.2 g/dL (01/11/18 2:14 AM) Globulin [2.7-4.2 g/dL] 3.2 g/dL (01/11/18 2:14 AM) A/G Ratio [0.7-1.6] 1.3 (01/11/18 2:14 AM) Calcium Lvl [8.5-10.5 mg/dL] 8.8 mg/dL (01/11/18 2:14 AM) ALT [0-65 unit/L] 33 unit/L (01/11/18 2:14 AM) AST [0-37 unit/L] 22 unit/L (01/11/18 2:14 AM) Alk Phos [39-136 unit/L] 70 unit/L (01/11/18 2:14 AM) Bili Total [0.2-1.3 mg/dL] 0.5 mg/dL (01/11/18 2:14 AM) Lactic Acid Lvl [0.5-2.2 mMol/L] 0.7 mMol/L (01/11/18 4:28 AM) 1Result Comment: The eGFR is calculated [...] Range]: 1 S Preg [Negative] Negative *NA* (01/11/18 2:14 AM) URINE AND STOOL Most recent to oldest [Reference Range]: 1 UA Turbidity [Clear] Slight *ABN* (01/11/18 2:14 AM) UA Color [Yellow] Red *ABN* (01/11/18 2:14 AM) UA pH [5.0-8.0] 7.0 (01/11/18 2:14 AM) UA Spec Grav [<=1.030] 1.016 (01/11/18 2:14 AM) UA Glucose [Negative mg/dL] Negative mg/dL *NA* (01/11/18 2:14 AM) UA Blood [Negative] Moderate *ABN* (01/11/18 2:14 AM) UA Ketones [Negative mg/dL] Trace mg/dL *ABN* (01/11/18 2:14 AM) UA Protein [Negative mg/dL] 100 mg/dL *ABN* (01/11/18 2:14 AM) UA Urobilinogen [0.1-1.0 mg/dL] 3.0 mg/dL *HI* (01/11/18 2:14 AM) UA Bili [Negative] Negative *NA* (01/11/18 2:14 AM) UA Leuk Est [Negative] Large *ABN* (01/11/18 2:14 AM) UA Nitrite [Negative] Negative (01/11/18 2:14 AM) UA WBC [0-5 /HPF] 24 /HPF *HI* (01/11/18 2:14 AM) UA RBC [0-2 /HPF] 106 /HPF *HI* (01/11/18 2:14 AM) UA Bacteria [None Seen /HPF] Occasional /HPF *NA* (01/11/18 2:14 AM) UA Sq Epi [Few /LPF] Many /LPF *ABN* (01/11/18 2:14 AM) UA Hyal Cast [0-2 /LPF] 32 /LPF *HI* (01/11/18 2:14 AM) UA Mucus [None Seen /LPF] Many /LPF *ABN* (01/11/18 2:14 AM) HEMATOLOGY Most recent to oldest [Reference Range]: 1 WBC [3.7-10.4 K/CMM] 4.8 K/CMM (01/11/18 2:14 AM) RBC [4.20-5.40 M/CMM] 4.15 M/CMM *LOW* (01/11/18 2:14 AM) Hgb [12.0-16.0 g/dL] 11.1 g/dL *LOW* (01/11/18 2:14 AM) Hct [36.0-48.0 %] 33.2 % *LOW* (01/11/18 2:14 AM) MCV [80.0-98.0 fL] 80.1 fL (01/11/18 2:14 AM) MCH [27.0-31.0 pg] 26.7 pg *LOW* (01/11/18 2:14 AM) MCHC [32.0-36.0 g/dL] 33.3 g/dL (01/11/18 2:14 AM) RDW [11.5-14.5 %] 17.0 % *HI* (01/11/18 2:14 AM) MPV [7.4-10.4 fL] 7.5 fL (01/11/18 2:14 AM) Platelet [133-450 K/CMM] 290 K/CMM (01/11/18 2:14 AM) Segs [45.0-75.0 %] 53.3 % (01/11/18 2:14 AM) Lymphocytes [20.0-40.0 %] 36.5 % (01/11/18 2:14 AM) Monocytes [2.0-12.0 %] 8.2 % (01/11/18 2:14 AM) Eosinophils [0.0-4.0 %] 1.1 % (01/11/18 2:14 AM) Basophils [0.0-1.0 %] 0.9 % (01/11/18 2:14 AM) Segs-Bands # [1.5-8.1 K/CMM] 2.5 K/CMM (01/11/18 2:14 AM) Lymphocytes # [1.0-5.5 K/CMM] 1.8 K/CMM (01/11/18 2:14 AM) Monocytes # [0.0-0.8 K/CMM] 0.4 K/CMM (01/11/18 2:14 AM) Eosinophils # [0.0-0.5 K/CMM] 0.1 K/CMM (01/11/18 2:14 AM) Immunizations Given and Recorded Vaccine Date [...] 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
--- OUTSIDE RECORDS SUMMARY | 2018-08-25 06:35 | XMS REPORT | Summary of Care ---
:1995 Author Organization [facility] Address [address] [place], [place] [address]- Encounter HQ aScha(LORI) [id number] Date(s): 03/16/18 - 03/16/[address] [address]- Discharge Disposition: Left Without Being Seen Attending Physician: Darvin Fischer MD Vital Signs Most recent to oldest [Reference Range]: 1 Temperature Oral [96.4-99.1 DegF] 98.6 DegF (03/16/18 5:07 AM) Blood Pressure [90-140/60-90 mmHg] 107/65 mmHg (03/16/18 5:07 AM) Respiratory Rate [14-20 BRMIN] 18 BRMIN (03/16/18 5:07 AM) Peripheral Pulse Rate [60-100 bpm] 84 bpm (03/16/18 5:07 AM) Weight 59.091 kg (03/16/18 5:07 AM) Problem List Condition Effective Dates Status Health Status Informant Depression(Confirmed) Resolved Infectious disease in mother Active complicating , childbirth AND/OR puerperium(Confirmed) Kidney stone(Confirmed) 2014 Resolved (Confirmed) Active (Confirmed) 02/13/16 - 06/23/16 8:46 AM Resolved (Confirmed) 08/22/15 - 05/07/16 Resolved (Confirmed) 09/17/16 - 07/20/17 3:12 Resolved PM Tobacco use(Confirmed) Active Allergies, Adverse Reactions, Alerts Substance Reaction Severity Status acetaminophen1 Active 1itching Medications No data available for this section Results No data available for this section Immunizations Given and Recorded Vaccine Date Status Refusal Reason pneumococcal 13-valent vaccine 12/25/17 Given influenza virus vaccine, inactivated 12/24/17 Given influenza virus vaccine, inactivated 3/29/16 Given Procedures Procedure Date Related Diagnosis Body Site Status Stent placement Completed Vaginal delivery, medical personnel Completed present Social History Social History Type Response Substance Abuse Use: None. Employment/School Status: Employed. 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
--- OUTSIDE RECORDS SUMMARY | 2018-08-25 06:35 | XMS REPORT | Summary of Care ---
:1995 Author Organization [facility] Address [address] [place] [phone]- Encounter HQ Mike_loreta(FIN) [id number] Date(s): 10/20/17 - 10/21/[address] [address]- Discharge Diagnosis: Acute female pelvic inflammatory disease Discharge Diagnosis: Concern about STD in female without diagnosis Discharge Disposition: Home or Self Care Attending Physician: Ute Sanders MD Vital Signs Most recent to oldest [Reference Range]: 1 2 Height 160.02 cm (10/20/17 6:58 PM) Temperature Oral [96.4-99.1 DegF] 98.0 DegF 98.0 DegF (10/20/17 11:15 PM) (10/20/17 6:58 PM) Blood Pressure [90-140/60-90 mmHg] 117/73 mmHg 110/72 mmHg (10/20/17 11:15 PM) (10/20/17 6:58 PM) Respiratory Rate [14-20 BRMIN] 18 BRMIN 18 BRMIN (10/20/17 11:15 PM) (10/20/17 6:58 PM) Peripheral Pulse Rate [60-100 bpm] 82 bpm 117 bpm (10/20/17 11:15 PM) *HI* (10/20/17 6:58 PM) Weight 60 kg (10/20/17 6:58 PM) Body Mass Index 23.43 m2 (10/20/17 6:58 PM) Problem List Condition Effective Dates Status Health Status Informant Depression(Confirmed) Resolved Infectious disease in mother Active complicating , childbirth AND/OR puerperium(Confirmed) Kidney stone(Confirmed) 2014 Resolved (Confirmed) Active (Confirmed) 02/13/16 - 06/23/16 8:46 AM Resolved (Confirmed) 08/22/15 - 05/07/16 Resolved (Confirmed) 09/17/16 - 07/20/17 3:12 Resolved PM Tobacco use(Confirmed) Active Allergies, Adverse Reactions, Alerts Substance Reaction Severity Status acetaminophen1 Active 1itching Medications azithromycin 250 mg oral tablet 1,000 mg, 4 tab, Route: PO, Drug form: TAB, ONCE, Dosing Weight 60, kg, Start date: 10/20/17 22:32:00 TIMBER SELECTOR, Stop date: 10/20/17 22:32:00 TIMBER SELECTOR, ABX Indication: Genital Tract Infection Notes: Take 1 hour before or 2 hours after meals.(Same As: Zithromax) Start Date: 10/20/17 Stop Date: 10/20/17 Status: Completeddoxycycline monohydrate 100 mg oral tablet 100 mg=1 tab, PO, Q12H, X 14 day, # 28 tab, 0 Refill(s) Start Date: 10/20/17 Stop Date: 11/03/17 Status: OrderedFlagyl 2 gm, 4 tab, Route: PO, Drug form: TAB, ONCE, Dosing Weight 60, kg, Priority: STAT, Start date: 10/20/17 22:31:00 TIMBER SELECTOR, Stop date: 10/20/17 22:31:00 TIMBER SELECTOR, ABX Indication: Genital Tract Infection Notes: (Same as: Flagyl) Take with food/ avoid alcohol Start Date: 10/20/17 Stop Date: 10/20/17 Status: CompletedketOROLAC 30 mg, 1 mL, Route: IVP, Drug form: INJ, ONCE, Dosing Weight 60, kg, Priority: STAT, Start date: 10/20/17 22:31:00 TIMBER SELECTOR, Stop date: 10/20/17 22:31:00 TIMBER SELECTOR Notes: (Same as:Toradol) IV bolus must be given >15 seconds. Give IM administration slowly and deeply into the muscle.Not for use > 4 days MEDICATION WASTE Product Size: 30 mgProduct Wasted: ___ mg Start Date: 10/20/17 Stop Date: 10/20/17 Status: CompletedNS (Bolus) IV 1,000 mL, 1,000 ml/hr, Infuse Over: 1 hr, Route: IV, 1,000, Drug form: INJ, ONCE , Priority: STAT, Dosing Weight 60 kg, Start date: 10/20/17 19:40:00 TIMBER SELECTOR, Stop date: 10/20/17 19:40:00 TIMBER SELECTOR Start Date: 10/20/17 Stop Date: 10/20/17 Status: CompletedRocephin 250 mg, Route: IM, Drug form: PDR/INJ, ONCE, Dosing Weight 60, kg, Priority: STAT, Start date: 10/20/17 22:32:00 TIMBER SELECTOR, Stop date: 10/20/17 22:32:00 TIMBER SELECTOR, ABX Indication: Genital Tract Infection Notes: (Same As: Rocephin) Start Date: 10/20/17 Stop Date: 10/20/17 Status: CompletedSaline Flush 0.9% 10 mL, Route: IVP, Drug Form: INJ, Dosing Weight 60, kg, PRN, PRN Line Flush, Start date: 10/20/17 19:39:00 TIMBER SELECTOR, Duration: 30 day, Stop date: 11/19/17 19:38: 00 TIMBER SELECTOR Notes: Same as: BD Posiflush Sterile Start Date: 10/20/17 Stop Date: 10/21/17 Status: Discontinuedtramadol 50 mg oral tablet 50 mg=1 tab, PO, Q6H, X 3 day, # 12 tab, 0 Refill(s) Start Date: 10/20/17 Stop Date: 10/23/17 Status: OrderedZofran ODT 4 mg, 1 tab, Route: PO, Drug form: TABDIS, ONCE, Dosing Weight 60, kg, Priority : STAT, Start date: 10/20/17 22:31:00 TIMBER SELECTOR, Stop date: 10/20/17 22:31:00 TIMBER SELECTOR Notes: (Same as: Zofran ODT) Start Date: 10/20/17 Stop Date: 10/20/17 Status: Completed Results ELECTROLYTES Most recent to oldest [Reference Range]: 1 Sodium Lvl [135-145 mEq/L] 138 mEq/L (10/20/17 8:39 PM) Potassium Lvl [3.5-5.1 mEq/L] 3.6 mEq/L (10/20/17 8:39 PM) Chloride Lvl [95-109 mEq/L] 105 mEq/L (10/20/17 8:39 PM) CO2 [24-32 mEq/L] 22 mEq/L *LOW* (10/20/17 8:39 PM) AGAP [10.0-20.0 mEq/L] 14.6 mEq/L (10/20/17 8:39 PM) CHEM PANEL Most recent to oldest [Reference Range]: 1 Creatinine Lvl [0.50-1.40 mg/dL] 0.92 mg/dL (10/20/17 8:39 PM) eGFR 90 mL/min/1.73m2 1 *NA* (10/20/17 8:39 PM) BUN [7-22 mg/dL] 8 mg/dL (10/20/17 8:39 PM) Glucose Lvl [70-99 mg/dL] 89 mg/dL (10/20/17 8:39 PM) Calcium Lvl [8.5-10.5 mg/dL] 9.0 mg/dL (10/20/17 8:39 PM) 1Result Comment: The eGFR is calculated [...] Range]: 1 S Preg [Negative] Negative *NA* (10/20/17 8:39 PM) URINE AND STOOL Most recent to oldest [Reference Range]: 1 UA Turbidity [Clear] Marked *ABN* (10/20/17 8:39 PM) UA Color [Yellow] Alyssa *ABN* (10/20/17 8:39 PM) UA pH [5.0-8.0] 5.0 (10/20/17 8:39 PM) UA Spec Grav [<=1.030] 1.019 (10/20/17 8:39 PM) UA Glucose [Negative mg/dL] Negative mg/dL *NA* (10/20/17 8:39 PM) UA Blood [Negative] Moderate *ABN* (10/20/17 8:39 PM) UA Ketones Negative *NA* (10/20/17 8:39 PM) UA Protein [Negative mg/dL] 100 mg/dL *ABN* (10/20/17 8:39 PM) UA Urobilinogen [0.1-1.0 mg/dL] 4.0 mg/dL *HI* (10/20/17 8:39 PM) UA Bili [Negative] Small *ABN* (10/20/17 8:39 PM) UA Leuk Est [Negative] Moderate *ABN* (10/20/17 8:39 PM) UA Nitrite [Negative] Negative (10/20/17 8:39 PM) UA WBC [0-5 /HPF] 126 /HPF *HI* (10/20/17 8:39 PM) UA RBC [0-2 /HPF] 23 /HPF *HI* (10/20/17 8:39 PM) UA Bacteria [None Seen /HPF] Few /HPF *NA* (10/20/17 8:39 PM) UA Sq Epi [Few /LPF] Many /LPF *ABN* (10/20/17 8:39 PM) UA Mucus [None Seen /LPF] Many /LPF *ABN* (10/20/17 8:39 PM) HEMATOLOGY Most recent to oldest [Reference Range]: 1 WBC [3.7-10.4 K/CMM] 10.5 K/CMM *HI* (10/20/17 8:39 PM) RBC [4.20-5.40 M/CMM] 4.87 M/CMM (10/20/17 8:39 PM) Hgb [12.0-16.0 g/dL] 13.5 g/dL (10/20/17 8:39 PM) Hct [36.0-48.0 %] 39.7 % (10/20/17 8:39 PM) MCV [80.0-98.0 fL] 81.3 fL (10/20/17 8:39 PM) MCH [27.0-31.0 pg] 27.7 pg (10/20/17 8:39 PM) MCHC [32.0-36.0 g/dL] 34.0 g/dL (10/20/17 8:39 PM) RDW [11.5-14.5 %] 15.2 % *HI* (10/20/17 8:39 PM) Platelet [133-450 K/CMM] 330 K/CMM (10/20/17 8:39 PM) MPV [7.4-10.4 fL] 7.4 fL (10/20/17 8:39 PM) Segs [45.0-75.0 %] 66.9 % (10/20/17 8:39 PM) Lymphocytes [20.0-40.0 %] 25.7 % (10/20/17 8:39 PM) Monocytes [2.0-12.0 %] 6.2 % (10/20/17 8:39 PM) Eosinophils [0.0-4.0 %] 0.8 % (10/20/17 8:39 PM) Basophils [0.0-1.0 %] 0.4 % (10/20/17 8:39 PM) Segs-Bands # [1.5-8.1 K/CMM] 7.0 K/CMM (10/20/17 8:39 PM) Lymphocytes # [1.0-5.5 K/CMM] 2.7 K/CMM (10/20/17 8:39 PM) Monocytes # [0.0-0.8 K/CMM] 0.7 K/CMM (10/20/17 8:39 PM) Eosinophils # [0.0-0.5 K/CMM] 0.1 K/CMM (10/20/17 8:39 PM) Immunizations Given and Recorded Vaccine Date [...] day: 2; Other Tobacco Frequency 0.5 PPD; Assessment and Plan No data available for this section
--- OUTSIDE RECORDS SUMMARY | 2018-08-25 06:35 | XMS REPORT | Summary of Care ---
:1995 Author Organization [facility] Address [address], [place] [address]- Encounter HQ Sacha(FIN) [id number] Date(s): 03/09/18 - 03/09/[address] [address]- Encounter Diagnosis Anemia (Discharge Diagnosis) - 03/09/18 Discharge Disposition: Home or Self Care Attending Physician: Marycruz Vincent MD Vital Signs Most recent to oldest [Reference Range]: 1 2 Height 160.02 cm (03/09/18 11:03 AM) Temperature Oral [96.4-99.1 DegF] 97.9 DegF 97.6 DegF (03/09/18 12:48 PM) (03/09/18 11:03 AM) Blood Pressure [90-140/60-90 mmHg] 121/68 mmHg 116/62 mmHg (03/09/18 12:48 PM) (03/09/18 11:03 AM) Respiratory Rate [14-20 BRMIN] 16 BRMIN 18 BRMIN (03/09/18 12:48 PM) (03/09/18 11:03 AM) Peripheral Pulse Rate [60-100 bpm] 78 bpm 81 bpm (03/09/18 12:48 PM) (03/09/18 11:03 AM) Weight 55.909 kg (03/09/18 11:03 AM) Body Mass Index 21.83 m2 (03/09/18 11:03 AM) Problem List Condition Effective Dates Status [...] Status acetaminophen1 Active 1itching Medications ketOROLAC 30 mg/mL injectable solution 60 mg, 2 mL, Route: IM, Drug form: INJ, ONCE, Dosing Weight 55.909, kg, Start date: 03/09/18 12:23:00 CDT, Stop date: 03/09/18 12:23:00 CDT Notes: (Same as:Toradol) IV bolus must be given >15 seconds. Give IM administration slowly and deeply into the muscle.Not for use > 4 days MEDICATION WASTE Product Size: 60 mgProduct Wasted: ___ mg Start Date: 03/09/18 Stop Date: 03/09/18 Status: CompletedMotrin IB 200 mg oral tablet 400 mg=2 tab, PO, Q6H, PRN Pain 1-3/Temp > 100.4 F, # 50 tab, 0 Refill(s) Start Date: 03/09/18 Stop Date: 03/17/18 Status: OrderedPrenatal Plus Low Iron oral tablet 1 tab, PO, Daily, # 120 tab, 0 Refill(s) Start Date: 03/09/18 Status: Orderedtramadol 50 mg oral tablet 50 mg=1 tab, PO, Q4H, # 7 tab, 0 Refill(s) Start Date: 03/09/18 Stop Date: 03/15/18 Status: Ordered Results URINE CHEM Most recent to oldest [Reference Range]: 1 U Preg [Negative] Negative (03/09/18 11:29 AM) URINE AND STOOL Most recent to oldest [Reference Range]: 1 UA Turbidity [Clear] Slight *ABN* (03/09/18 11:29 AM) UA Color Yellow *NA* (03/09/18 11:29 AM) UA pH [5.0-8.0] 5.0 (03/09/18 11:29 AM) UA Spec Grav [<=1.030] 1.020 (03/09/18 11:29 AM) UA Glucose [Negative mg/dL] Negative mg/dL *NA* (03/09/18 11:29 AM) UA Blood [Negative] Large *ABN* (03/09/18 11:29 AM) UA Ketones [Negative mg/dL] Negative mg/dL *NA* (03/09/18 11:29 AM) UA Protein [Negative mg/dL] 30 mg/dL *ABN* (03/09/18 11:29 AM) UA Urobilinogen [0.1-1.0 mg/dL] 2.0 mg/dL *HI* (03/09/18 11:29 AM) UA Bili [Negative] Negative *NA* (03/09/18 11:29 AM) UA Leuk Est [Negative] Moderate *ABN* (03/09/18 11:29 AM) UA Nitrite [Negative] Negative (03/09/18 11:29 AM) UA WBC [0-5 /HPF] 53 /HPF *HI* (03/09/18 11:29 AM) UA RBC [0-2 /HPF] >182 /HPF *HI* (03/09/18 11:29 AM) UA Bacteria [None Seen /HPF] Occasional /HPF *NA* (03/09/18 11:29 AM) UA Sq Epi [Few /LPF] Many /LPF *ABN* (03/09/18 11:29 AM) UA Mucus [None Seen /LPF] Few /LPF *NA* (03/09/18 11:29 AM) Immunizations Given and Recorded Vaccine Date [...] 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
--- OUTSIDE RECORDS SUMMARY | 2018-08-25 06:35 | XMS REPORT | Summary of Care ---
:1995 Author Organization [facility] Address [address] [place] [address]- Encounter HQ Mike_loreta(FIN) [id number] Date(s): 04/21/17 - 04/21/[address] [address]- Discharge Diagnosis: UTI (urinary tract infection) in in third trimester Discharge Disposition: Home or Self Care Attending Physician: Rosa Nelson MD Vital Signs Most recent to oldest [Reference Range]: 1 2 Height 160.02 cm 160.02 cm (04/21/17 1:02 AM) (04/21/17 12:50 AM) Temperature Oral [96.4-99.1 DegF] 98.6 DegF (04/21/17 1:02 AM) Blood Pressure [90-140/60-90 mmHg] 106/60 mmHg 108/57 mmHg (04/21/17 2:35 AM) (04/21/17 1:02 AM) Respiratory Rate [14-20 BRMIN] 14 BRMIN (04/21/17 1:02 AM) Peripheral Pulse Rate [60-100 bpm] 82 bpm (04/21/17 1:02 AM) Weight 71.364 kg 71.364 kg (04/21/17 1:02 AM) (04/21/17 12:50 AM) Body Mass Index 27.87 m2 27.87 m2 (04/21/17 1:02 AM) (04/21/17 12:50 AM) Problem List Condition Effective Dates Status Health Status Informant Depression(Confirmed) Resolved Infectious disease in mother Active complicating , childbirth AND/OR puerperium(Confirmed) Kidney stone(Confirmed) 2014 Resolved (Confirmed) Active (Confirmed) 02/13/16 - 06/23/16 8:46 AM Resolved (Confirmed) 08/22/15 - 05/07/16 Resolved (Confirmed) 09/17/16 Active Tobacco use(Confirmed) Active Allergies, Adverse Reactions, Alerts Substance Reaction Severity Status acetaminophen1 Active 1itching Medications Ditropan 5 mg, 1 tab, Route: PO, Drug form: TAB, ONCE, Dosing Weight 71.364, kg, Start date: 04/21/17 2:13:00CDT, Stop date: 04/21/17 2:13:00 CDT Notes: Same as: Ditropan) Start Date: 04/21/17 Stop Date: 04/21/17 Status: CompletedLactated Ringers 1,000 mL 1,000 mL, Rate: 125 ml/hr, Infuse over: 8 hr, Route: IV, Dosing Weight 71.364 kg , Total Volume: 1,000, Start date: 04/21/17 1:12:00 CDT, Duration: 30 day, Stop date: 05/21/17 1:11:00 CDT Start Date: 04/21/17 Stop Date: 04/21/17 Status: Discontinuedmeperidine 25 mg, 1 mL, Route: IVP, Drug form: INJ, ONCE, Dosing Weight 71.364, kg, Priority: STAT, Start date:04/21/17 1:12:00 CDT, Stop date: 04/21/17 1:12:00 CDT Notes: (Same as: Demerol) "Use Precaution in Elderly, Seizure disorders, and Renal impairment" Start Date: 04/21/17 Stop Date: 04/21/17 Status: Discontinuedmorphine Sulfate 2 mg, 1 mL, Route: IVP, Drug form: INJ, ONCE, Dosing Weight 71.364, kg, Priority : STAT, Start date: 04/21/17 1:12:00 CDT, Stop date: 04/21/17 1:12:00 CDT Notes: (Same as:MORPhine Sulfate) Start Date: 04/21/17 Stop Date: 04/21/17 Status: Discontinuedpromethazine 12.5 mg, 50 mL, Route: IVPB, Drug form: SOLN, ONCE, Dosing Weight 71.364, kg, Priority: STAT, Start date: 04/21/17 2:12:00 CDT, Stop date: 04/21/17 2:12:00 CDT Start Date: 04/21/17 Stop Date: 04/21/17 Status: CompletedRocephin + sodium chloride 0.9% INJ 100 mL 1 gm, Route: IVPB, Drug form: PDR/INJ, ONCE, Dosing Weight 71.364, kg, Priority : STAT, Start date: 04/21/17 1:12:00 CDT, Duration: 1 doses or times, Stop date : 04/21/17 1:12:00 CDT, ABX Indication: Urinary Tract Infection Notes: (Same As: Rocephin).Use with 100 mL NS and infuse over 30 min MEDICATION WASTE Product Size: 1000 mgProduct Wasted: ___ mg Start Date: 04/21/17 Stop Date: 04/21/17 Status: Completed Results CHEM PANEL Most recent to oldest [Reference Range]: 1 Fibronectin [Negative] Negative (04/21/17 1:39 AM) URINE AND STOOL Most recent to oldest [Reference Range]: 1 UA Turbidity [Clear] Slight *ABN* (04/21/17 1:39 AM) UA Color [Yellow] Red *ABN* (04/21/17 1:39 AM) UA pH [5.0-8.0] 7.5 (04/21/17 1:39 AM) UA Spec Grav [<=1.030] 1.010 (04/21/17 1:39 AM) UA Glucose [Negative mg/dL] Negative mg/dL *NA* (04/21/17 1:39 AM) UA Blood [Negative] Large *ABN* (04/21/17 1:39 AM) UA Ketones [Negative mg/dL] Negative mg/dL *NA* (04/21/17 1:39 AM) UA Protein [Negative mg/dL] 30 mg/dL *ABN* (04/21/17 1:39 AM) UA Urobilinogen [0.1-1.0 mg/dL] <=1.0 mg/dL *NA* (04/21/17 1:39 AM) UA Bili [Negative] Negative *NA* (04/21/17 1:39 AM) UA Leuk Est [Negative] Large *ABN* (04/21/17 1:39 AM) UA Nitrite [Negative] Negative (04/21/17 1:39 AM) UA WBC [0-5 /HPF] 56 /HPF *HI* (04/21/17 1:39 AM) UA RBC [0-2 /HPF] >182 /HPF *HI* (04/21/17 1:39 AM) UA Bacteria [None Seen /HPF] Occasional /HPF *NA* (04/21/17 1:39 AM) UA Sq Epi [Few /LPF] Many /LPF *ABN* (04/21/17 1:39 AM) UA Mucus [None Seen /LPF] Few /LPF *NA* (04/21/17 1:39 AM) HEMATOLOGY Most recent to oldest [Reference Range]: 1 WBC [3.7-10.4 K/CMM] 6.9 K/CMM (04/21/17 1:39 AM) RBC [4.20-5.40 M/CMM] 3.39 M/CMM *LOW* (04/21/17 1:39 AM) Hgb [12.0-16.0 g/dL] 10.2 g/dL *LOW* (04/21/17 1:39 AM) Hct [36.0-48.0 %] 30.2 % *LOW* (04/21/17 1:39 AM) MCV [80.0-98.0 fL] 89.2 fL (04/21/17 1:39 AM) MCH [27.0-31.0 pg] 30.0 pg (04/21/17 1:39 AM) MCHC [32.0-36.0 g/dL] 33.6 g/dL (04/21/17 1:39 AM) RDW [11.5-14.5 %] 13.5 % (04/21/17 1:39 AM) Platelet [133-450 K/CMM] 221 K/CMM (04/21/17 1:39 AM) MPV [7.4-10.4 fL] 7.8 fL (04/21/17 1:39 AM) Segs [45.0-75.0 %] 54.3 % (04/21/17 1:39 AM) Lymphocytes [20.0-40.0 %] 36.8 % (04/21/17 1:39 AM) Monocytes [2.0-12.0 %] 7.3 % (04/21/17 1:39 AM) Eosinophils [0.0-4.0 %] 0.8 % (04/21/17 1:39 AM) Basophils [0.0-1.0 %] 0.8 % (04/21/17 1:39 AM) Segs-Bands # [1.5-8.1 K/CMM] 3.8 K/CMM (04/21/17 1:39 AM) Lymphocytes # [1.0-5.5 K/CMM] 2.6 K/CMM (04/21/17 1:39 AM) Monocytes # [0.0-0.8 K/CMM] 0.5 K/CMM (04/21/17 1:39 AM) Eosinophils # [0.0-0.5 K/CMM] 0.1 K/CMM (04/21/17 1:39 AM) Basophils # [0.0-0.2 K/CMM] 0.1 K/CMM (04/21/17 1:39 AM) Immunizations Given and Recorded Vaccine Date [...]
--- OUTSIDE RECORDS SUMMARY | 2018-08-25 06:36 | XMS REPORT | Summary of Care ---
:1995 Author Organization [facility] Address [address] [place] [address]- Encounter HQ Encntr_aliwayne(FIN) [id number] Date(s): 02/23/18 - 02/24/[address] [address]- Encounter Diagnosis Unspecified abdominal pain (Final) - 03/03/18 Nicotine dependence, cigarettes, uncomplicated (Final) - Discharge Disposition: LBTC Left B4 Treatment Cmplt-MSE Cmplt Attending Physician: Diomedes Rosales MD Vital Signs Most recent to oldest [Reference Range]: 1 Height 160.02 cm (02/23/18 11:37 PM) Blood Pressure [90-140/60-90 mmHg] 93/59 mmHg (02/23/18 11:37 PM) Respiratory Rate [14-20 BRMIN] 16 BRMIN (02/23/18 11:37 PM) Peripheral Pulse Rate [60-100 bpm] 91 bpm (02/23/18 11:37 PM) Weight 61.051 kg (02/23/18 11:37 PM) Body Mass Index 23.84 m2 (02/23/18 11:37 PM) Problem List Condition Effective Dates Status Health Status Informant Depression(Confirmed) Resolved Infectious disease in mother Active complicating , childbirth AND/OR puerperium(Confirmed) Kidney stone(Confirmed) 2014 Resolved (Confirmed) Active (Confirmed) 02/13/16 - 06/23/16 8:46 AM Resolved (Confirmed) 08/22/15 - 05/07/16 Resolved (Confirmed) 09/17/16 - 07/20/17 3:12 Resolved PM Tobacco use(Confirmed) Active Allergies, Adverse Reactions, Alerts Substance Reaction Severity Status acetaminophen1 Active 1itching Medications ondansetron 4 mg, 2 mL, Route: IVP, Drug form: INJ, ONCE, Dosing Weight 61.051, kg, Priority : STAT, Start date: 02/23/18 23:46:00 CDT, Stop date: 02/23/18 23:46:00 CDT Notes: (Same as: April) MEDICATION WASTE Product Size: 4 mgProduct Wasted: ___ mg Start Date: 02/23/18 Stop Date: 03/06/18 Status: DiscontinuedSaline Flush 0.9% 10 mL, Route: IVP, Drug Form: INJ, Dosing Weight 61.051, kg, PRN, PRN Line Flush , Start date: 02/23/18 23:46:00 CDT, Duration: 30 day, Stop date: 03/25/18 23:45 :00 CDT Notes: Same as: BD Posiflush Sterile Start Date: 02/23/18 Stop Date: 02/24/18 Status: DiscontinuedSodium Chloride 0.9% (Bolus) IV 1,000 mL, 1000 ml/hr, Infuse Over: 1 hr, Route: IV, 1,000, Drug form: INJ, ONCE , Priority: STAT, Dosing Weight 61.051 kg, Start date: 02/23/18 23:46:00 CDT, Stop date: 02/23/18 23:46:00 CDT Start Date: 02/23/18 Stop Date: 03/06/18 Status: Discontinued Results No data available for this section [...] 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
--- OUTSIDE RECORDS SUMMARY | 2018-08-25 06:36 | XMS REPORT | Summary of Care ---
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
--- OUTSIDE RECORDS SUMMARY | 2018-08-25 06:36 | XMS REPORT | Summary of Care ---
:1995 Author Organization [facility] Address [address] [place] [id number]- Encounter HQ Sacha(FIN) [id number] Date(s): 12/23/17 - 12/25/[address] [address]- Encounter Diagnosis Acute pyelonephritis (Final) - 12/30/17 Unspecified Escherichia coli [E. coli] as the cause of diseases classified elsewhere (Final) - Calculus of kidney (Final) - Nicotine dependence, cigarettes, uncomplicated (Final) - Hypokalemia (Final) - Encounter for immunization (Final) - Discharge Disposition: Home or Self Care Attending Physician: Idania Cardenas MD Admitting Physician: Idania Cardenas MD Referring Physician: Nina Salgado MD Vital Signs Most recent to oldest [Reference 1 2 3 Range]: Height 160.02 cm 160.02 cm (12/23/17 8:23 PM) (12/23/17 12:23 PM) Temperature Oral [96.4-99.1 97.9 DegF 98.0 DegF 98.3 DegF DegF] (12/25/17 2:55 AM) (12/24/17 11:28 PM) (12/24/17 7:15 PM) Blood Pressure [90-140/60-90 119/72 mmHg 102/66 mmHg 114/72 mmHg mmHg] (12/25/17 7:55 AM) (12/25/17 2:55 AM) (12/24/17 11:28 PM) Respiratory Rate [14-20 BRMIN] 18 BRMIN 16 BRMIN 16 BRMIN (12/25/17 7:55 AM) (12/25/17 2:55 AM) (12/24/17 11:28 PM) Peripheral Pulse Rate [60-100 58 bpm 55 bpm 55 bpm bpm] *LOW* *LOW* *LOW* (12/25/17 7:55 AM) (12/25/17 2:55 AM) (12/24/17 11:28 PM) Weight 59.29 kg 56.818 kg (12/23/17 8:23 PM) (12/23/17 12:23 PM) Body Mass Index 23.15 m2 22.19 m2 (12/23/17 8:23 PM) (12/23/17 12:23 PM) Problem List Condition Effective Dates Status Health Status Informant Depression(Confirmed) Resolved Infectious disease in mother Active complicating , childbirth AND/OR puerperium(Confirmed) Kidney stone(Confirmed) 2014 Resolved (Confirmed) Active (Confirmed) 02/13/16 - 06/23/16 8:46 AM Resolved (Confirmed) 08/22/15 - 05/07/16 Resolved (Confirmed) 09/17/16 - 07/20/17 3:12 Resolved PM Tobacco use(Confirmed) Active Allergies, Adverse Reactions, Alerts Substance Reaction Severity Status acetaminophen1 Active 1itching Medications cefTRIAXone + sterile water 10 mL 1 gm, Route: IVP, ONCE, Dosing Weight 56.818, kg, Priority: STAT, Start date: 16:24:00 [employer]MAN[employer],Stop date: 12/23/17 16:24:00 PERFORMANCE [employer]UP [employer], ABX Indication: Urinary Tract Infection Notes: (Same As: Rocephin).Use with 100 mL NS and infuse over 30 min MEDICATION WASTE Product Size: 1000 mgProduct Wasted: ___ mg Start Date: 12/23/17 Stop Date: 12/23/17 Status: CompletedCipro 500 mg oral tablet 500 mg=1 tab, PO, Q12H, X 5 day, # 10 tab, 0 Refill(s), Pharmacy: [facility]/pharmacy # [id number] Start Date: 12/25/17 Stop Date: 12/30/17 Status: Completeddocusate 100 mg, 1 cap, Route: PO, Drug form: CAP, BID, Dosing Weight 56.818, kg, Start date: 12/24/17 9:00:00 [employer]MANCE [employer], Duration: 30 day, Stop date: 01/22/18 17:00:00 PERFORMANCE [employer] ARTIST Notes: (Same as: Colace) (Do Not Crush) Start Date: 12/24/17 Stop Date: 12/25/17 Status: Discontinuedheparin 5,000 unit, 1 mL, Route: SUB-Q, Drug form: INJ, Q12H, Dosing Weight 59.29, kg, Start date: 12/24/17 21:00:00 [employer]MANCE [employer], Duration: 30 day, Stop date: 01/23/18 9:00: 00 [employer]MANCE [employer] ARTIST Notes: porcine heparin Start Date: 12/24/17 Stop Date: 12/25/17 Status: Discontinuedibuprofen 800 mg, 1 tab, Route: PO, Drug form: TAB, Q8H, Dosing Weight 56.818, kg, PRN Other -See Comment, Start date: 12/23/17 20:18:00 [employer]MANCE [employer]IST, Duration: 30 day, Stop date: 01/22/18 20:17:00 PERFORMANCE MAKEUP ARTIST Notes: (Same as: Motrin)"Do Not Crush" Take with food. Start Date: 12/23/17 Stop Date: 12/25/17 Status: Discontinuedibuprofen 800 mg, PO, Q8H, pain, 0 Refill(s) Start Date: 12/23/17 Status: Orderedinfluenza virus vaccine, inactivated 0.5 mL, Route: IM, Drug Form: SUSP, Daily, Start date: 12/24/17 9:00:00 [employer]MANCE [employer], Duration: 1 doses or times, Stop date: 12/24/17 9:00:00 PERFORMANCE MAKEUP ARTIST Notes: (Same as: Fluzone Quadrivalent, Fluarix Quadrivalent)For 3 years of age and older (0.5 mL IM)Shake well before use Start Date: 12/24/17 Stop Date: 12/24/17 Status: CompletedketOROLAC 15 mg, 0.5 mL, Route: IVP, Drug form: INJ, ONCE, Dosing Weight 59.29, kg, Start date: 12/24/17 11:44:00 [employer]MAN[employer], Stop date: 12/24/17 11:44:00 PERFORMANCE [employer]UP ARTIST Notes: (Same as:Toradol) IV bolus must be given >15 seconds. Give IM administration slowly and deeply into the muscle.Not for use > 4 days MEDICATION WASTE Product Size: 30 mgProduct Wasted: _15__ mg Start Date: 12/24/17 Stop Date: 12/24/17 Status: CompletedketOROLAC 15 mg, Route: IVP, Drug form: INJ, ONCE, Dosing Weight 56.818, kg, Priority: STAT, Start date: 12/23/17 15:14:00 PERFORMANCE [employer]IST, Stop date: 12/23/17 15:14:00 PERFORMANCE [employer]IST Start Date: 12/23/17 Stop Date: 12/23/17 Status: Completedlidocaine + Sodium Chloride 0.9% IV 100 mL 80 mg, 4 mL, Route: IVPB, Drug form: INJ, ONCE, Dosing Weight 56.818, kg, Start date: 12/23/17 15:23:00 PERFORMANCE [employer]IST, Stop date: 12/23/17 15:23:00 PERFORMANCE MAKEUP ARTIST Notes: Syringe (Same as: Xylocaine) Start Date: 12/23/17 Stop Date: 12/23/17 Status: Completedmorphine Sulfate 1 mg, 0.25 mL, Route: IVP, Drug form: INJ, Q4H, Dosing Weight 56.818, kg, PRN Pain Score 7-10, Startdate: 12/23/17 17:22:00 [employer]MANCE [employer], Duration: 30 day, Stop date: 01/22/18 17:21:00 PERFORMANCE [employer]UP ARTIST Notes: (Same as:MORPhine Sulfate) Start Date: 12/23/17 Stop Date: 12/25/17 Status: Discontinuedmorphine Sulfate 4 mg, 1 mL, Route: IVP, Drug form: SOLN, ONCE, Dosing Weight 56.818, kg, Priority: STAT, Start date:12/23/17 12:27:00 PERFORMANCE [employer]IST, Stop date: 12/23/17 12:27:00 PERFORMANCE MAKEUP ARTIST Notes: (Same as: MORPhine Sulfate) Start Date: 12/23/17 Stop Date: 12/23/17 Status: CompletedNS (Bolus) IV 1,000 mL, 1,000 ml/hr, Infuse Over: 1 hr, Route: IV, 1,000, Drug form: INJ, ONCE , Priority: STAT, Dosing Weight 56.818 kg, Start date: 12/23/17 12:28:00 PERFORMANCE [employer], Stop date: 12/23/17 12:28:00 PERFORMANCE [employer]IST Start Date: 12/23/17 Stop Date: 12/23/17 Status: CompletedNS + KCL 20mEq/L 1000ml (Premix) 1,000 mL 1,000 mL, Rate: 125 ml/hr, Infuse over: 8 hr, Route: IV, Dosing Weight 56.818 kg , Total Volume: 1,000, Start date: 12/23/17 17:24:00 [employer]FORMAN[employer], Duration: 30 day, Stop date: 01/22/18 17:23:00 PERFORMANCE MAKEUP ARTIST, 1.6, m2 Notes: PREMIX IV - Do Not AlterWASTE: F/P - Sink; E - Municipal Trash Bin Start Date: 12/23/17 Stop Date: 12/24/17 Status: Discontinuedondansetron 4 mg, 2 mL, Route: IVP, Drug form: INJ, Q6H, Dosing Weight 56.818, kg, PRN Nausea & Vomiting, Start date: 12/23/17 17:22:00 [employer]MAN[employer], Duration: 30 day, Stop date: 01/22/18 17:21:00 PERFORMANCE [employer]UP ARTIST Notes: (Same as: April) MEDICATION WASTE Product Size: 4 mgProduct Wasted: ___ mg Start Date: 12/23/17 Stop Date: 12/25/17 Status: Discontinuedondansetron 4 mg, Route: IVP, Drug form: INJ, ONCE, Dosing Weight 56.818, kg, Priority: STAT , Start date: 12/23/17 16:56:00 PERFORMANCE [employer] ARTIST, Stop date: 12/23/17 16:56:00 PERFORMANCE MAKEUP ARTIST Start Date: 12/23/17 Stop Date: 12/23/17 Status: Completedondansetron 4 mg, 2 mL, Route: IVP, Drug form: INJ, ONCE, Dosing Weight 56.818, kg, Priority : STAT, Start date: 12/23/17 12:27:00 PERFORMANCE [employer]IST, Stop date: 12/23/17 12:27:00 PERFORMANCE MAKEUP ARTIST Notes: (Same as: April) MEDICATION WASTE Product Size: 4 mgProduct Wasted: ___ mg Start Date: 12/23/17 Stop Date: 12/23/17 Status: Completedphenazopyridine 100 mg oral tablet 200 mg=2 tab, PO, TID-After Meals, X 2 day, # 12 tab, 0 Refill(s), Pharmacy: [facility] /pharmacy #[id number] Start Date: 12/25/17 Stop Date: 12/27/17 Status: Completedpneumococcal 13-valent vaccine 0.5 mL, Route: IM, Drug Form: INJ, Daily, Start date: 12/24/17 23:00:00 PERFORMANCE [employer] ARTIST, Duration: 1 doses or times, Stop date: 12/24/17 23:00:00 PERFORMANCE MAKEUP ARTIST Notes: Shake well prior to use (Same as: Prevnar 13) Start Date: 12/24/17 Stop Date: 12/24/17 Status: Completedpneumococcal 13-valent vaccine 0.5 mL, Route: IM, Drug Form: INJ, Daily, Start date: 12/24/17 9:00:00 PERFORMANCE MAKEUP ARTIST, Duration: 1 doses or times, Stop date: 12/24/17 9:00:00 PERFORMANCE MAKEUP ARTIST Notes: Shake well prior to use (Same as: Prevnar 13) Start Date: 12/24/17 Stop Date: 12/24/17 Status: CompletedPyridium 200 mg, 2 tab, Route: PO, Drug form: TAB, TID-After Meals, Dosing Weight 59.29, kg, Start date: 12/24/17 12:30:00 PERFORMANCE [employer]UP ARTIST, Duration: 2 day, Stop date: 12/26/17 8:30 :00 PERFORMANCE MAKEUP ARTIST Notes: Give with meals.(Same as: Pyridium) Start Date: 12/24/17 Stop Date: 12/25/17 Status: DiscontinuedRobitussin 200 mg, 10 mL, Route: PO, Drug Form: LIQ, Dosing Weight 56.818, kg, Q4H, PRN as needed for congestion, Start date: 12/23/17 17:25:00 PERFORMANCE [employer] ARTIST, Duration: 30 day, Stop date: 01/22/18 17:24:00 PERFORMANCE MAKEUP ARTIST Notes: (Same as: Robitussin) Start Date: 12/23/17 Stop Date: 12/25/17 Status: DiscontinuedRocephin + sterile water 10 mL 1 gm, Route: IVPB, [id number], Dosing Weight 56.818, kg, Priority: Routine, Start date: 12/24/17 17:00:00 PERFORMANCE MAKEUP ARTIST, Duration: 30 day, Stop date: 01/22/18 17:00:00 PERFORMANCE MAKEUP ARTIST , ABX Indication: Urinary Tract Infection Notes: (Same As: Rocephin).Use with 100 mL NS and infuse over 30 min MEDICATION WASTE Product Size: 1000 mgProduct Wasted: ___ mg Start Date: 12/24/17 Stop Date: 12/25/17 Status: DiscontinuedSaline Flush 0.9% 10 mL, Route: IVP, Drug Form: INJ, Dosing Weight 56.818, kg, PRN, PRN Line Flush , Start date: 12/23/17 12:27:00 PERFORMANCE MAKEUP ARTIST, Duration: 30 day, Stop date: 01/22/18 12:26 :00 PERFORMANCE MAKEUP ARTIST Notes: Same as: BD Posiflush Sterile Start Date: 12/23/17 Stop Date: 12/25/17 Status: DiscontinuedSodium Chloride 0.9% (Bolus) IV 1,000 mL, 1000 ml/hr, Infuse Over: 1 hr, Route: IV, 1,000, Drug form: INJ, ONCE , Priority: STAT, Dosing Weight 56.818 kg, Start date: 12/23/17 12:27:00 PERFORMANCE MAKEUP ARTIST, Stop date: 12/23/17 12:27:00 PERFORMANCE MAKEUP ARTIST Start Date: 12/23/17 Stop Date: 12/23/17 Status: CompletedSodium Chloride 0.9% IV 1,000 mL 1,000 mL, Rate: 125 ml/hr, Infuse over: 8 hr, Route: IV, Dosing Weight 59.29 kg , Total Volume: 1,000, Start date: 12/24/17 11:45:00 PERFORMANCE [employer]UP ARTIST, Duration: 30 day, Stop date: 01/23/18 11:44:00 PERFORMANCE MAKEUP ARTIST, 1.64, m2 Start Date: 12/24/17 Stop Date: 12/25/17 Status: DiscontinuedSodium Chloride 0.9% IV 1,000 mL 1,000 mL, Rate: 100 ml/hr, Infuse over: 10 hr, Route: IV, Dosing Weight 56.818 kg, Total Volume: 1,000, Start date: 12/23/17 16:56:00 PERFORMANCE MAKEUP ARTIST, Duration: 30 day, Stop date: 01/22/18 16:55:00 PERFORMANCE MAKEUP ARTIST, 1.6, m2 Start Date: 12/23/17 Stop Date: 12/24/17 Status: Discontinuedtamsulosin 0.4 mg, 1 cap, Route: PO, Drug form: CAP, ONCE, Dosing Weight 59.29, kg, Start date: 12/24/17 11:45:00 PERFORMANCE MAKEUP ARTIST, Stop date: 12/24/17 11:45:00 PERFORMANCE MAKEUP ARTIST Notes: (Same As: Flomax) "Do Not Crush" Start Date: 12/24/17 Stop Date: 12/24/17 Status: Completedtramadol 50 mg oral tablet 50 mg=1 tab, PO, Q6H, PRN Pain, X 5 day, # 24 tab, 0 Refill(s) Start Date: 12/25/17 Stop Date: 12/30/17 Status: Completed Results ELECTROLYTES Most recent to oldest 1 2 3 [Reference Range]: Sodium Lvl [135-145 mEq/L] 145 mEq/L 143 mEq/L 138 mEq/L (12/25/17 2:52 AM) (12/24/17 2:43 AM) (12/23/17 12:28 PM) Potassium Lvl [3.5-5.1 mEq/L] 3.6 mEq/L 3.6 mEq/L 3.1 mEq/L (12/25/17 2:52 AM) (12/24/17 2:43 AM) *LOW* (12/23/17 12:28 PM) Chloride Lvl [95-109 mEq/L] 112 mEq/L 112 mEq/L 104 mEq/L *HI* *HI* (12/23/17 12:28 PM) (12/25/17 2:52 AM) (12/24/17 2:43 AM) CO2 [24-32 mEq/L] 27 mEq/L 24 mEq/L 27 mEq/L (12/25/17 2:52 AM) (12/24/17 2:43 AM) (12/23/17 12:28 PM) AGAP [10.0-20.0 mEq/L] 9.6 mEq/L 10.6 mEq/L 10.1 mEq/L *LOW* (12/24/17 2:43 AM) (12/23/17 12:28 PM) (12/25/17 2:52 AM) CHEM PANEL Most recent to oldest 1 2 3 [Reference Range]: Creatinine Lvl [0.50-1.40 0.53 mg/dL 0.51 mg/dL 0.77 mg/dL mg/dL] (12/25/17 2:52 AM) (12/24/17 2:43 AM) (12/23/17 12:28 PM) eGFR 137 mL/min/1.73m2 1 139 mL/min/1.73m2 2 112 mL/min/1.73m2 3 *NA* *NA* *NA* (12/25/17 2:52 AM) (12/24/17 2:43 AM) (12/23/17 12:28 PM) BUN [7-22 mg/dL] 3 mg/dL 10 mg/dL 19 mg/dL *LOW* (12/24/17 2:43 AM) (12/23/17 12:28 PM) (12/25/17 2:52 AM) B/C Ratio [6-25] 20 25 (12/24/17 2:43 AM) (12/23/17 12:28 PM) Glucose Lvl [70-99 mg/dL] 101 mg/dL 97 mg/dL 99 mg/dL *HI* (12/24/17 2:43 AM) (12/23/17 12:28 PM) (12/25/17 2:52 AM) Total Protein [6.4-8.4 5.6 g/dL 7.9 g/dL g/dL] *LOW* (12/23/17 12:28 PM) (12/24/17 2:43 AM) Albumin Lvl [3.5-5.0 g/dL] 2.9 g/dL 4.3 g/dL *LOW* (12/23/17 12:28 PM) (12/24/17 2:43 AM) Globulin [2.7-4.2 g/dL] 2.7 g/dL 3.6 g/dL (12/24/17 2:43 AM) (12/23/17 12:28 PM) A/G Ratio [0.7-1.6] 1.1 1.2 (12/24/17 2:43 AM) (12/23/17 12:28 PM) Calcium Lvl [8.5-10.5 7.8 mg/dL 8.0 mg/dL 9.0 mg/dL mg/dL] *LOW* *LOW* (12/23/17 12:28 PM) (12/25/17 2:52 AM) (12/24/17 2:43 AM) Phosphorus [2.5-4.5 mg/dL] 3.6 mg/dL (12/24/17 2:43 AM) Magnesium Lvl [1.8-2.4 1.6 mg/dL 1.8 mg/dL mg/dL] *LOW* (12/24/17 2:43 AM) (12/25/17 2:52 AM) ALT [0-65 unit/L] 39 unit/L 57 unit/L (12/24/17 2:43 AM) (12/23/17 12:28 PM) AST [0-37 unit/L] 27 unit/L 47 unit/L (12/24/17 2:43 AM) *HI* (12/23/17 12:28 PM) Alk Phos [39-136 unit/L] 66 unit/L 86 unit/L (12/24/17 2:43 AM) (12/23/17 12:28 PM) Bili Total [0.2-1.3 mg/dL] 0.4 mg/dL 0.8 mg/dL (12/24/17 2:43 AM) (12/23/17 12:28 PM) Lipase Lvl [73-393 unit/L] 134 unit/L (12/23/17 12:28 PM) Lactic Acid Lvl [0.5-2.2 2.1 mMol/L mMol/L] (12/23/17 2:14 PM) 1Result Comment: The eGFR is calculated [...] young, healthy individualsthe eGFR will be >90 mL/min/1.73m2. [...] young, healthy individualsthe eGFR will be >90 mL/min/1.73m2. [...] to oldest [Reference Range]: 1 2 3 S Preg [Negative] Negative *NA* (12/23/17 12:28 PM) URINE AND STOOL Most recent to oldest [Reference Range]: 1 2 3 UA Turbidity [Clear] Slight *ABN* (12/23/17 2:25 PM) UA Color [Yellow] Yellow *NA* (12/23/17 2:25 PM) UA pH [5.0-8.0] 6.5 (12/23/17 2:25 PM) UA Spec Grav [<=1.030] 1.013 (12/23/17 2:25 PM) UA Glucose [Negative mg/dL] Negative mg/dL *NA* (12/23/17 2:25 PM) UA Blood [Negative] Large *ABN* (12/23/17 2:25 PM) UA Ketones [Negative mg/dL] Negative mg/dL *NA* (12/23/17 2:25 PM) UA Protein [Negative mg/dL] 50 mg/dL *ABN* (12/23/17 2:25 PM) UA Urobilinogen [0.1-1.0 mg/dL] <=1.0 mg/dL *NA* (12/23/17 2:25 PM) UA Bili [Negative] Negative *NA* (12/23/17 2:25 PM) UA Leuk Est [Negative] Large *ABN* (12/23/17 2:25 PM) UA Nitrite [Negative] Negative (12/23/17 2:25 PM) UA WBC [0-5 /HPF] >182 /HPF *HI* (12/23/17 2:25 PM) UA RBC [0-2 /HPF] >182 /HPF *HI* (12/23/17 2:25 PM) UA Bacteria [None Seen /HPF] Few /HPF *NA* (12/23/17 2:25 PM) UA Sq Epi [Few /LPF] Moderate /LPF *ABN* (12/23/17 2:25 PM) UA Mucus [None Seen /LPF] Few /LPF *NA* (12/23/17 2:25 PM) HEMATOLOGY Most recent to oldest 1 2 3 [Reference Range]: WBC [3.7-10.4 K/CMM] 4.3 K/CMM 4.7 K/CMM 6.2 K/CMM (12/25/17 2:52 AM) (12/24/17 2:43 AM) (12/23/17 12:28 PM) RBC [4.20-5.40 M/CMM] 3.71 M/CMM 3.90 M/CMM 4.78 M/CMM *LOW* *LOW* (12/23/17 12:28 PM) (12/25/17 2:52 AM) (12/24/17 2:43 AM) Hgb [12.0-16.0 g/dL] 10.0 g/dL 10.5 g/dL 12.7 g/dL *LOW* *LOW* (12/23/17 12:28 PM) (12/25/17 2:52 AM) (12/24/17 2:43 AM) Hct [36.0-48.0 %] 29.5 % 31.1 % 37.2 % *LOW* *LOW* (12/23/17 12:28 PM) (12/25/17 2:52 AM) (12/24/17 2:43 AM) MCV [80.0-98.0 fL] 79.4 fL 79.8 fL 78.0 fL *LOW* *LOW* *LOW* (12/25/17 2:52 AM) (12/24/17 2:43 AM) (12/23/17 12:28 PM) MCH [27.0-31.0 pg] 27.0 pg 27.0 pg 26.5 pg (12/25/17 2:52 AM) (12/24/17 2:43 AM) *LOW* (12/23/17 12:28 PM) MCHC [32.0-36.0 g/dL] 34.0 g/dL 33.8 g/dL 34.0 g/dL (12/25/17 2:52 AM) (12/24/17 2:43 AM) (12/23/17 12:28 PM) RDW [11.5-14.5 %] 15.6 % 15.7 % 15.6 % *HI* *HI* *HI* (12/25/17 2:52 AM) (12/24/17 2:43 AM) (12/23/17 12:28 PM) MPV [7.4-10.4 fL] 8.2 fL 8.4 fL 8.2 fL (12/25/17 2:52 AM) (12/24/17 2:43 AM) (12/23/17 12:28 PM) Platelet [133-450 K/CMM] 213 K/CMM 218 K/CMM 330 K/CMM (12/25/17 2:52 AM) (12/24/17 2:43 AM) (12/23/17 12:28 PM) Segs [45.0-75.0 %] 37.8 % 39.7 % 65.5 % *LOW* *LOW* (12/23/17 12:28 PM) (12/25/17 2:52 AM) (12/24/17 2:43 AM) Lymphocytes [20.0-40.0 %] 53.3 % 50.6 % 25.5 % *HI* *HI* (12/23/17 12:28 PM) (12/25/17 2:52 AM) (12/24/17 2:43 AM) Monocytes [2.0-12.0 %] 6.5 % 7.5 % 7.9 % (12/25/17 2:52 AM) (12/24/17 2:43 AM) (12/23/17 12:28 PM) Eosinophils [0.0-4.0 %] 1.9 % 1.6 % 0.7 % (12/25/17 2:52 AM) (12/24/17 2:43 AM) (12/23/17 12:28 PM) Basophils [0.0-1.0 %] 0.5 % 0.6 % 0.4 % (12/25/17 2:52 AM) (12/24/17 2:43 AM) (12/23/17 12:28 PM) Segs-Bands # [1.5-8.1 K/CMM] 1.6 K/CMM 1.8 K/CMM 4.0 K/CMM (12/25/17 2:52 AM) (12/24/17 2:43 AM) (12/23/17 12:28 PM) Lymphocytes # [1.0-5.5 K/CMM] 2.3 K/CMM 2.4 K/CMM 1.6 K/CMM (12/25/17 2:52 AM) (12/24/17 2:43 AM) (12/23/17 12:28 PM) Monocytes # [0.0-0.8 K/CMM] 0.3 K/CMM 0.4 K/CMM 0.5 K/CMM (12/25/17 2:52 AM) (12/24/17 2:43 AM) (12/23/17 12:28 PM) Eosinophils # [0.0-0.5 K/CMM] 0.1 K/CMM 0.1 K/CMM (12/25/17 2:52 AM) (12/24/17 2:43 AM) MOLECULAR DIAGNOSTIC Most recent to oldest [Reference Range]: 1 2 3 Source Respiratory Panel PCR Fl[employer] Swab (12/23/17 6:10 PM) Influenza A PCR [Negative] Negative (12/23/17 6:10 PM) Influenza B PCR [Negative] Negative (12/23/17 6:10 PM) RSV PCR [Negative] Negative (12/23/17 6:10 PM) Immunizations Given and Recorded Vaccine Date [...] 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 Alcohol Never Smoking Status Former smoker; Type: Cigarettes; Previous treatment: None; Ready to change: No; Concerns about tobacco use in household: No; Exposure to Tobacco Smoke None; Cigarette Smoking Last 365 Days Yes; Reg Smoking Cessation Counseling Yes; Tobacco use per day: 2; Other Tobacco Frequency 0.5 PPD; entered on: 03/16/18 Assessment and Plan Extracted from: Title: Clinical Document Author: Morgan Mohr MD Date: 12/25/17 Discharge Summary Patient Name: Celestine Car Patient Admission Date: 12/23/2017 Discharge Date: 12/25/2017 Discharge Diagnoses: (1) Acute right pyelonephritis, probably due to E coli (2) Abdominal pain, due to above (3) Nausea with vomiting, due to above Procedures: None Complications: None Significant Diagnostic Studies: (1) Renal US Studies Pending at Discharge: None Consultations: None Brief HPI and Hospital Course: Please see the H&P by Dr. Cardenas for full details of the admission. In brief, the patient is a 22yo woman with a PMH of kidney stones, tobacco use who presented wiht complaints of abdominal pain. Ex am and UA were concerning for pyelonephritis. She was admitted to the hospital for further care. She was kept on IV antibiotics and IV fluids. She was given IV pain medications and anti-emetics. Urine c ulture returned with E coli sensitive to Ciprofloxacin. The patient was transitioned to this and discharged home. Discharge Medications: See discharge paperwork for list of medications. Discharge Physical Exam: Vitals: afebrile, BP 119/72, P 58 General: Patient laying in bed, awake and alert Resp: Clear bilateral CV: Reg rate and rhythm Discharge Condition: Stable Disposition: Home Follow-up: -Primary care physician in the next one to two weeks Extracted from: Title: Hospitalist Progress Note * Author: Rodolfo Yousif MD Date: Impression and Plan ASSESSMENT: 1. Acute right pyelonephritis, probably due to Gram negative bacteria 2. Abdominal pain, due to above 3. Nausea with vomiting, due to above PLAN: -presents with right pyelonephritis -UA c/w UTI. -renal US no hydronephrosis. no renal calculi -blood and urine cx sent -continue ceftriaxone IV for abx coverage -f/u culture results -ketorolac IV with morphine IV for severe breakthrough pain -pyridium -zofran IV for nausea -SCD and enoxaparin for DVT prophylaxis -anticipat discharge 1-2 days Extracted from: Title: General Admission H&P * Author: Idania Cardenas MD Date: 12/23/17 Impression and Plan 1) Acute R CVA tenderness/R flank pain related to acute pyelonephritis -Hx of L sided pyelonephritis. UA consistent with UTI despite squamous cells seen, follow urine culture. -IV Rocephin, IVF. Pt is allergic to Tylenol. Will use IV Morphine PRN for now for pain control. -Renal US without evidence of hydronephrosis or stone. 2) Intractable N/V- failed po challenge in ER. Will have her on full liquid diet in case her nausea improves later today. IVF, IV antiemetics. Serum negative. 3) Hypokalemia- NS+20meq K ordered. 4) Nonproductive cough, moderate-severe- ordered CXR and respiratory viral panel PCR. Former cigarette smoker. 5) Cigarette smoker- counseled on continue cessation. 6) Hematuria- monitor closely, pt did not report being on her menses to me. 7) DVT ppx- SCD, early ambulation 8) Lightheadedness- BP low-normal but may be her baseline or from antiemetics/ pain meds. Monitor vitals closely, IVF. Admit to inpatient. AM labs ordered. Plan discussed with pt/ER physician.
--- OUTSIDE RECORDS SUMMARY | 2018-08-25 06:36 | XMS REPORT | Summary of Care ---
:1995 Author Organization Formerly [facility] Address [address] [place] [address]- Encounter HQ Hermelindantr_loreta(FIN) [id number] Date(s): 05/11/18 - 05/11/[address] [address]- Encounter Diagnosis Nephrolithiasis (Discharge Diagnosis) - 05/11/18 Yeast infection (Discharge Diagnosis) - 05/11/18 Sore throat (viral) (Discharge Diagnosis) - 05/11/18 Discharge Disposition: Home or Self Care Attending Physician: Doroteo Perkins DO Vital Signs Most recent to oldest 1 2 3 [Reference Range]: Blood Pressure [90-140/60-90 91/61 mmHg 94/54 mmHg 100/58 mmHg mmHg] (05/11/18 7:15 PM) (05/11/18 6:00 PM) (05/11/18 5:10 PM) Respiratory Rate [14-20 BRMIN] 20 BRMIN 16 BRMIN 18 BRMIN (05/11/18 7:15 PM) (05/11/18 6:00 PM) (05/11/18 5:10 PM) Peripheral Pulse Rate [60-100 103 bpm bpm] *HI* (05/11/18 3:58 PM) Weight 51.875 kg (05/11/18 3:58 PM) Problem List Condition Effective Dates Status Health Status Informant Depression(Confirmed) Resolved Infectious disease in mother Active complicating , childbirth AND/OR puerperium(Confirmed) Kidney stone(Confirmed) 2014 Resolved (Confirmed) Active (Confirmed) 02/13/16 - 06/23/16 8:46 AM Resolved (Confirmed) 08/22/15 - 05/07/16 Resolved (Confirmed) 09/17/16 - 07/20/17 3:12 Resolved PM Tobacco use(Confirmed) Active Allergies, Adverse Reactions, Alerts Substance Reaction Severity Status acetaminophen1 Active 1itching Medications Flomax 0.4 mg oral capsule 0.4 mg=1 cap, PO, Daily, # 30 cap, 0 Refill(s) Start Date: 05/11/18 Status: Orderedfluconazole 150 mg, 1.5 tab, Route: PO, Drug form: TAB, ONCE, Dosing Weight 51.875, kg, Start date: 05/11/18 17:46:00 CDT, Stop date: 05/11/18 17:46:00 CDT, ABX Indication: Bacteremia Notes: (Same as: Diflucan) Start Date: 05/11/18 Stop Date: 05/11/18 Status: Completedibuprofen 600 mg oral tablet 600 mg=1 tab, PO, QID, # 120 tab, 0 Refill(s) Start Date: 05/11/18 Stop Date: 05/11/18 Status: CompletedKeflex 500 mg oral capsule 500 mg=1 cap, PO, QID, X 7 day, # 28 cap, 0 Refill(s) Start Date: 05/11/18 Stop Date: 05/18/18 Status: OrderedNS (Bolus) IV 1,000 mL, 1,000 ml/hr, Infuse Over: 1 hr, Route: IV, 1,000, Drug form: INJ, ONCE , Priority: STAT, Dosing Weight 51.875 kg, Start date: 05/11/18 16:13:00 CDT, Stop date: 05/11/18 16:13:00 CDT Start Date: 05/11/18 Stop Date: 05/11/18 Status: CompletedPyridium 100 mg oral tablet 100 mg=1 tab, PO, TID, PRN Dysuria, X 2 day, # 6 tab, 0 Refill(s) Start Date: 05/11/18 Stop Date: 05/13/18 Status: CompletedReglan 10 mg, 2 mL, Route: IVP, Drug form: INJ, ONCE, Dosing Weight 51.875, kg, Priority: STAT, Start date:05/11/18 16:14:00 CDT, Stop date: 05/11/18 16:14:00 CDT Notes: (Same as: Reglan) Start Date: 05/11/18 Stop Date: 05/11/18 Status: CompletedSaline Flush 0.9% 10 mL, Route: IVP, Drug Form: INJ, Dosing Weight 59, kg, PRN, PRN Line Flush, Start date: 05/11/18 16:01:00 CDT, Duration: 30 day, Stop date: 06/10/18 16:00: 00 CDT Notes: Same as: BD Posiflush Sterile Start Date: 05/11/18 Stop Date: 05/11/18 Status: Discontinuedtramadol 50 mg oral tablet 50 mg=1 tab, PO, BID, X 15 day, # 30 tab, 0 Refill(s) Start Date: 05/11/18 Stop Date: 05/26/18 Status: OrderedZofran ODT 4 mg oral tablet, disintegrating 4 mg=1 tab, PO, BID, PRN Nausea and Vomiting, Dissolve tab under tongue, # 10 tab, 0 Refill(s) Start Date: 05/11/18 Stop Date: 05/16/18 Status: Ordered Results ELECTROLYTES Most recent to oldest [Reference Range]: 1 Sodium Lvl [135-145 mEq/L] 138 mEq/L (05/11/18 5:03 PM) Potassium Lvl [3.5-5.1 mEq/L] 3.4 mEq/L *LOW* (05/11/18 5:03 PM) Chloride Lvl [95-109 mEq/L] 102 mEq/L (05/11/18 5:03 PM) CO2 [24-32 mEq/L] 26 mEq/L (05/11/18 5:03 PM) AGAP [10.0-20.0 mEq/L] 13.4 mEq/L (05/11/18 5:03 PM) CHEM PANEL Most recent to oldest [Reference Range]: 1 Creatinine Lvl [0.50-1.40 mg/dL] 0.75 mg/dL (05/11/18 5:03 PM) eGFR 115 mL/min/1.73m2 1 *NA* (05/11/18 5:03 PM) BUN [7-22 mg/dL] 10 mg/dL (05/11/18 5:03 PM) B/C Ratio [6-25] 13 (05/11/18 5:03 PM) Glucose Lvl [70-99 mg/dL] 78 mg/dL (05/11/18 5:03 PM) Total Protein [6.4-8.4 g/dL] 7.8 g/dL (05/11/18 5:03 PM) Albumin Lvl [3.5-5.0 g/dL] 3.7 g/dL (05/11/18 5:03 PM) Globulin [2.7-4.2 g/dL] 4.1 g/dL (05/11/18 5:03 PM) A/G Ratio [0.7-1.6] 0.9 (05/11/18 5:03 PM) Calcium Lvl [8.5-10.5 mg/dL] 8.9 mg/dL (05/11/18 5:03 PM) ALT [0-65 unit/L] 68 unit/L *HI* (05/11/18 5:03 PM) AST [0-37 unit/L] 36 unit/L (05/11/18 5:03 PM) Alk Phos [39-136 unit/L] 104 unit/L (05/11/18 5:03 PM) Bili Total [0.2-1.3 mg/dL] 0.3 mg/dL (05/11/18 5:03 PM) Lipase Lvl [73-393 unit/L] 161 unit/L (05/11/18 5:03 PM) 1Result Comment: The eGFR is calculated [...] Range]: 1 S Preg [Negative] Negative *NA* (05/11/18 5:03 PM) URINE AND STOOL Most recent to oldest [Reference Range]: 1 UA Turbidity [Clear] Moderate *ABN* (05/11/18 5:03 PM) UA Color [Yellow] Yellow *NA* (05/11/18 5:03 PM) UA pH [5.0-8.0] 5.5 (05/11/18 5:03 PM) UA Spec Grav [<=1.030] >=1.030 *ABN* (05/11/18 5:03 PM) UA Glucose [Negative] Negative (05/11/18 5:03 PM) UA Blood [Negative] Large *ABN* (05/11/18 5:03 PM) UA Ketones [Negative] Negative *NA* (05/11/18 5:03 PM) UA Protein [Negative mg/dL] 30 mg/dL *ABN* (05/11/18 5:03 PM) UA Urobilinogen [0.1-1.0 EU/dL] 0.2 EU/dL (05/11/18 5:03 PM) UA Bili [Negative] Negative *NA* (05/11/18 5:03 PM) UA Leuk Est [Negative] Trace *ABN* (05/11/18 5:03 PM) UA Nitrite [Negative] Positive *ABN* (05/11/18 5:03 PM) UA WBC [0-5 /HPF] 8 /HPF *HI* (05/11/18 5:03 PM) UA RBC [0-2 /HPF] >182 /HPF *HI* (05/11/18 5:03 PM) UA Bacteria [None Seen /HPF] Occasional /HPF *NA* (05/11/18 5:03 PM) UA Sq Epi [Few /LPF] Many /LPF *ABN* (05/11/18 5:03 PM) UA Hyal Cast [0-2 /LPF] 12 /LPF *HI* (05/11/18 5:03 PM) UA Mucus [None Seen /LPF] Moderate /LPF *ABN* (05/11/18 5:03 PM) UA [place] Yeast [None Seen /HPF] Many /HPF *ABN* (05/11/18 5:03 PM) HEMATOLOGY Most recent to oldest [Reference Range]: 1 WBC [3.7-10.4 K/CMM] 11.0 K/CMM *HI* (05/11/18 5:03 PM) RBC [4.20-5.40 M/CMM] 4.15 M/CMM *LOW* (05/11/18 5:03 PM) Hgb [12.0-16.0 g/dL] 9.9 g/dL *LOW* (05/11/18 5:03 PM) Hct [36.0-48.0 %] 31.2 % *LOW* (05/11/18 5:03 PM) MCV [80.0-98.0 fL] 75.2 fL *LOW* (05/11/18 5:03 PM) MCH [27.0-31.0 pg] 23.8 pg *LOW* (05/11/18 5:03 PM) MCHC [32.0-36.0 g/dL] 31.7 g/dL *LOW* (05/11/18 5:03 PM) RDW [11.5-14.5 %] 16.7 % *HI* (05/11/18 5:03 PM) MPV [7.4-10.4 fL] 6.6 fL *LOW* (05/11/18 5:03 PM) Platelet [133-450 K/CMM] 313 K/CMM (05/11/18 5:03 PM) Segs [45.0-75.0 %] 81.4 % *HI* (05/11/18 5:03 PM) Lymphocytes [20.0-40.0 %] 10.8 % *LOW* (05/11/18 5:03 PM) Monocytes [2.0-12.0 %] 6.4 % (05/11/18 5:03 PM) Eosinophils [0.0-4.0 %] 0.9 % (05/11/18 5:03 PM) Basophils [0.0-1.0 %] 0.5 % (05/11/18 5:03 PM) Segs-Bands # [1.5-8.1 K/CMM] 9.0 K/CMM *HI* (05/11/18 5:03 PM) Lymphocytes # [1.0-5.5 K/CMM] 1.2 K/CMM (05/11/18 5:03 PM) Monocytes # [0.0-0.8 K/CMM] 0.7 K/CMM (05/11/18 5:03 PM) Eosinophils # [0.0-0.5 K/CMM] 0.1 K/CMM (05/11/18 5:03 PM) Basophils # [0.0-0.2 K/CMM] 0.1 K/CMM (05/11/18 5:03 PM) RBC Morph Normal (05/11/18 5:03 PM) Plt Morph Normal (05/11/18 5:03 PM) RAPID Most recent to oldest [Reference Range]: 1 Grp A Strep Scr [Negative] Negative (05/11/18 5:03 PM) Microbiology Reports TEST:Culture: Urine STATUS:Order in Progress BODY SITE: SOURCE:Urine, Clean Catch COLLECTED DATE/TIME:05/11/18 5:03 PMPRELIMINARY REPORT10,000 - 50,000 CFU/ mL Escherichia coli Sensitivity Pending 50,000 - 100,000 CFU/mL Skin Amy Immunizations Given and Recorded Vaccine Date Status [...] 

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
--- OUTSIDE RECORDS SUMMARY | 2018-08-25 06:36 | XMS REPORT | Summary of Care ---
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
--- OUTSIDE RECORDS SUMMARY | 2018-08-25 06:36 | XMS REPORT | Summary of Care ---
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
--- OUTSIDE RECORDS SUMMARY | 2018-08-25 06:36 | XMS REPORT | Summary of Care ---
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
--- OUTSIDE RECORDS SUMMARY | 2018-08-25 06:37 | XMS REPORT | Summary of Care ---
:1995 Author Organization [facility] Address [address] [place] [address]- Encounter HQ Mike_loreta(FIN) [id number] Date(s): 07/23/16 - 07/23/[address] [address]- Discharge Diagnosis: Abdominal pain Discharge Disposition: Home or Self Care Attending Physician: Jose L Amor MD Vital Signs Most recent to oldest [Reference Range]: 1 2 Height 160.02 cm (07/23/16 5:13 PM) Temperature Oral [96.4-99.1 DegF] 96.7 DegF 97.8 DegF (07/23/16 8:16 PM) (07/23/16 5:13 PM) Blood Pressure [90-140/60-90 mmHg] 117/62 mmHg 116/78 mmHg (07/23/16 8:16 PM) (07/23/16 5:13 PM) Respiratory Rate [14-20 BRMIN] 18 BRMIN 18 BRMIN (07/23/16 8:16 PM) (07/23/16 5:13 PM) Peripheral Pulse Rate [60-100 bpm] 79 bpm 83 bpm (07/23/16 8:16 PM) (07/23/16 5:13 PM) Weight 66.818 kg (07/23/16 5:13 PM) Body Mass Index 26.09 m2 (07/23/16 5:13 PM) Problem List Condition Effective Dates Status Health Status Informant Depression(Confirmed) Resolved Infectious disease in mother Active complicating , childbirth AND/OR puerperium(Confirmed) Kidney stone(Confirmed) 2014 Resolved (Confirmed) 02/13/16 - 06/23/16 8:46 AM Resolved Tobacco use(Confirmed) Active Allergies, Adverse Reactions, Alerts Substance Reaction Severity Status NKDA Active Medications [place] 5/325 oral tablet 1 tab, Route: PO, Drug Form: TAB, Dosing Weight 66.818, kg, ONCE, STAT, Start date: 07/23/16 19:51:00 CDT, Stop date: 07/23/16 19:51:00 CDT Notes: (Same as: [place] 325/5) Do not exceed 4gm/day of acetaminophen. Start Date: 07/23/16 Stop Date: 07/23/16 Status: CompletedZofran ODT 4 mg, 1 tab, Route: PO, Drug form: TABDIS, ONCE, Dosing Weight 66.818, kg, Priority: STAT, Start date: 07/23/16 19:51:00 CDT, Stop date: 07/23/16 19:51:00 CDT Notes: (Same as: Zofran ODT) Start Date: 07/23/16 Stop Date: 07/23/16 Status: CompletedZofran ODT 4 mg oral tablet, disintegrating 4 mg=1 tab, PO, BID, PRN Nausea and Vomiting, Dissolve tab under tongue, X 5 day , # 10 tab, 0 Refill(s) Start Date: 07/23/16 Stop Date: 07/28/16 Status: Ordered Results ELECTROLYTES Most recent to oldest [Reference Range]: 1 Sodium Lvl [135-145 mEq/L] 141 mEq/L (07/23/16 6:21 PM) Potassium Lvl [3.5-5.1 mEq/L] 3.7 mEq/L (07/23/16 6:21 PM) Chloride Lvl [95-109 mEq/L] 109 mEq/L (07/23/16 6:21 PM) CO2 [24-32 mEq/L] 27 mEq/L (07/23/16 6:21 PM) AGAP [10.0-20.0 mEq/L] 8.7 mEq/L *LOW* (07/23/16 6:21 PM) CHEM PANEL Most recent to oldest [Reference Range]: 1 Creatinine Lvl [0.50-1.40 mg/dL] 0.56 mg/dL (07/23/16 6:21 PM) eGFR 137 mL/min/1.73m2 1 *NA* (07/23/16 6:21 PM) BUN [7-22 mg/dL] 5 mg/dL *LOW* (07/23/16 6:21 PM) B/C Ratio [6-25] 9 (07/23/16 6:21 PM) Glucose Lvl [70-99 mg/dL] 95 mg/dL (07/23/16 6:21 PM) Total Protein [6.4-8.4 g/dL] 7.0 g/dL (07/23/16 6:21 PM) Albumin Lvl [3.5-5.0 g/dL] 3.8 g/dL (07/23/16 6:21 PM) Globulin [2.7-4.2 g/dL] 3.2 g/dL (07/23/16:21 PM) A/G Ratio [0.7-1.6] 1.2 (07/23/16 6:21 PM) Calcium Lvl [8.5-10.5 mg/dL] 8.7 mg/dL (07/23/16:21 PM) ALT [0-65 unit/L] 56 unit/L (07/23/16 6:21 PM) AST [0-37 unit/L] 27 unit/L (07/23/16 6:21 PM) Alk Phos [39-136 unit/L] 86 unit/L (07/23/16 6:21 PM) Bili Total [0.2-1.3 mg/dL] 0.3 mg/dL (07/23/16 6:21 PM) Lipase Lvl [73-393 unit/L] 175 unit/L (07/23/16 6:21 PM) 1Result Comment: The eGFR is calculated [...] should be multiplied by the estimated BMI.URINE CHEM Most recent to oldest [Reference Range]: 1 U Preg [Negative] Negative (07/23/16 6:02 PM) URINE AND STOOL Most recent to oldest [Reference Range]: 1 UA Turbidity [Clear] Clear (07/23/16 6:02 PM) UA Color [Yellow] Light Yellow *NA* (07/23/16 6:02 PM) UA pH [5.0-8.0] 7.0 (07/23/16 6:02 PM) UA Spec Grav [<=1.030] 1.005 (07/23/16 6:02 PM) UA Glucose [Negative mg/dL] Negative mg/dL *NA* (07/23/16 6:02 PM) UA Blood [Negative] Negative (07/23/16 6:02 PM) UA Ketones [Negative mg/dL] Negative mg/dL *NA* (07/23/16 6:02 PM) UA Protein [Negative mg/dL] Negative mg/dL (07/23/16 6:02 PM) UA Urobilinogen [0.1-1.0 mg/dL] <=1.0 mg/dL *NA* (07/23/16 6:02 PM) UA Bili [Negative] Negative *NA* (07/23/16 6:02 PM) UA Leuk Est [Negative] Negative (07/23/16 6:02 PM) UA Nitrite [Negative] Negative (07/23/16 6:02 PM) UA WBC [0-5 /HPF] 2 /HPF (07/23/16 6:02 PM) UA RBC [0-2 /HPF] 1 /HPF (07/23/16 6:02 PM) UA Sq Epi [Few /LPF] Many /LPF *ABN* (07/23/16 6:02 PM) UA Mucus [None Seen /LPF] Few /LPF *NA* (07/23/16 6:02 PM) HEMATOLOGY Most recent to oldest [Reference Range]: 1 WBC [3.7-10.4 K/CMM] 8.6 K/CMM (07/23/16 6:21 PM) RBC [4.20-5.40 M/CMM] 4.14 M/CMM *LOW* (07/23/16 6:21 PM) Hgb [12.0-16.0 g/dL] 12.6 g/dL (07/23/16 6:21 PM) Hct [36.0-48.0 %] 37.2 % (07/23/16 6:21 PM) MCV [80.0-98.0 fL] 90.0 fL (07/23/16 6:21 PM) MCH [27.0-31.0 pg] 30.4 pg (07/23/16 6:21 PM) MCHC [32.0-36.0 g/dL] 33.7 g/dL (07/23/16 6:21 PM) RDW [11.5-14.5 %] 13.5 % (07/23/16 6:21 PM) Platelet [133-450 K/CMM] 220 K/CMM (07/23/16 6:21 PM) MPV [7.4-10.4 fL] 7.4 fL (07/23/16 6:21 PM) Segs [45.0-75.0 %] 67.1 % (07/23/16 6:21 PM) Lymphocytes [20.0-40.0 %] 24.6 % (07/23/16 6:21 PM) Monocytes [2.0-12.0 %] 6.2 % (07/23/16 6:21 PM) Eosinophils [0.0-4.0 %] 1.7 % (07/23/16 6:21 PM) Basophils [0.0-1.0 %] 0.4 % (07/23/16 6:21 PM) Segs-Bands # [1.5-8.1 K/CMM] 5.8 K/CMM (07/23/16 6:21 PM) Lymphocytes # [1.0-5.5 K/CMM] 2.1 K/CMM (07/23/16 6:21 PM) Monocytes # [0.0-0.8 K/CMM] 0.5 K/CMM (07/23/16 6:21 PM) Eosinophils # [0.0-0.5 K/CMM] 0.1 K/CMM (07/23/16 6:21 PM) Immunizations Given and Recorded Vaccine Date Status Refusal Reason influenza virus vaccine, inactivated 02/14/16 Given Procedures Procedure Date Related Diagnosis Body Site Stent placement Social History Social History Type Response Smoking Status Current every day smoker; Type: Cigarettes; Exposure to Tobacco Smoke None; Other Tobacco Frequency 0.5 PPD; Cigarette Smoking Last 365 Days No; Reg Smoking Cessation Counseling No Assessment and Plan No data available for this section
--- OUTSIDE RECORDS SUMMARY | 2018-08-25 06:37 | XMS REPORT | Summary of Care ---
:1995 Author Organization [facility] Address [address] [place] [id number]- Encounter HQ Sacha(FIN) [phone] Date(s): 02/19/16 - 02/21/[address] [address]- Discharge Diagnosis: High risk teen in second trimester Discharge Diagnosis: Left nephrolithiasis Discharge Diagnosis: Acute cystitis during in second trimester Discharge Disposition: Home Attending Physician: Mari Chance MD Admitting Physician: Mari Chance MD Vital Signs Most recent to oldest [Reference 1 2 3 Range]: Height 160.02 cm (02/19/16 7:37 AM) Temperature Oral [96.4-99.1 DegF] 97.9 DegF 99.2 DegF 98.9 DegF (02/21/16 8:00 AM) *HI* (02/20/16 8:00 AM) (02/20/16 3:00 PM) Blood Pressure [90-140/60-90 103/48 mmHg 98/50 mmHg 110/69 mmHg mmHg] (02/21/16 8:00 AM) (02/21/16 3:30 AM) (02/21/16 12:00 AM) Respiratory Rate [14-20 BRMIN] 17 BRMIN 18 BRMIN 18 BRMIN (02/21/16 8:00 AM) (02/21/16 3:30 AM) (02/21/16 12:00 AM) Peripheral Pulse Rate [60-100 71 bpm 71 bpm 74 bpm bpm] (02/21/16 8:00 AM) (02/21/16 3:30 AM) (02/21/16 12:00 AM) Weight 68.182 kg (02/19/16 7:37 AM) Body Mass Index 26.63 m2 (02/19/16 7:37 AM) Problem List Condition Effective Dates Status Health Status Informant Depression(Confirmed) Resolved Infectious disease in mother Active complicating , childbirth AND/OR puerperium(Confirmed) (Confirmed) 02/13/16 Active Tobacco use(Confirmed) Active Allergies, Adverse Reactions, Alerts Substance Reaction Severity Status NKDA Active Medications Lactated Ringers Injection IV (Lactated Ringers (Bolus) IV) 500 mL, 1,000 ml/hr, Infuse Over: 0.5 hr, Route: IV, 500, Drug form: INJ, ONCE, Dosing Weight 68.182kg, Start date: 02/19/16 8:23:00, Stop date: 02/19/16 8:23: 00 Start Date: 02/19/16 Stop Date: 02/19/16 Status: CompletedLactated Ringers IV 1,000 mL 1,000 mL, Rate: 125 ml/hr, Infuse over: 8 hr, Route: IV, Dosing Weight 68.182 kg , Total Volume: 1,000, Start date: 02/19/16 9:57:00, Duration: 30 day, Stop date : 03/20/16 9:56:00 Start Date: 02/19/16 Stop Date: 02/21/16 Status: DiscontinuedMilk of Magnesia 30 mL, Route: PO, Drug Form: SUSP, Dosing Weight 68.182, kg, TID, Start date: 21:00:00, Duration: 30 day, Stop date: 03/21/16 17:00:00 Notes: (Same as: Milk of Magnesia, MOM) Start Date: 02/20/16 Stop Date: 02/21/16 Status: Discontinuedmorphine Sulfate 2 mg, 1 mL, Route: IV, Drug form: INJ, Q4H, Dosing Weight 68.182, kg, PRN Pain Score 1-5, Start date: 02/19/16 11:06:00, Duration: 30 day, Stop date: 03/20/16 11:05:00 Notes: (Same as:MORPhine Sulfate) Start Date: 02/19/16 Stop Date: 02/20/16 Status: Discontinuedmorphine Sulfate 2 mg, 1 mL, Route: IV, Drug form: INJ, ONCE, Dosing Weight 68.182, kg, Priority : STAT, Start date: 02/19/16 8:23:00, Stop date: 02/19/16 8:23:00 Notes: (Same as:MORPhine Sulfate) Start Date: 02/19/16 Stop Date: 02/19/16 Status: Completedmultivitamin, 1 tab, Route: PO, Drug Form: TAB, Dosing Weight 68.182, kg, Daily, Start date: 02/20/16 9:00:00, Duration: 30 day, Stop date: 03/20/16 9:00:00 Start Date: 02/20/16 Stop Date: 02/21/16 Status: DiscontinuedNorco 10/325 oral tablet 1 tab, Route: PO, Drug Form: TAB, Dosing Weight 68.182, kg, Q4H, PRN Pain Score 4-6, Start date: 02/20/16 20:03:00, Duration: 30 day, Stop date: 03/21/16 20:02: 00 Notes: Do not exceed 4gm/day of acetaminophen. (Same as: [place] 325/10) Start Date: 02/20/16 Stop Date: 02/21/16 Status: Discontinuedondansetron 4 mg, 2 mL, Route: IVP, Drug form: INJ, ONCE, Dosing Weight 68.182, kg, Priority : STAT, Start date: 02/19/16 8:23:00, Stop date: 02/19/16 8:23:00 Notes: (Same as: April) MEDICATION WASTE Product Size: 4 mgProduct Wasted: ___ mg Start Date: 02/19/16 Stop Date: 02/19/16 Status: Completedpromethazine 12.5 mg, 50 mL, Route: IVPB, Drug form: SOLN, Q6H, Dosing Weight 68.182, kg, PRN Nausea, Start date:02/19/16 11:07:00, Duration: 30 day, Stop date: 03/20/16 11:06:00 Start Date: 02/19/16 Stop Date: 02/21/16 Status: DiscontinuedPyridium 100 mg, 1 tab, Route: PO, Drug form: TAB, TID-After Meals, Dosing Weight 68.182 , kg, Start date: 02/20/16 8:30:00, Duration: 2 day, Stop date: 02/21/16 17:30: 00 Notes: Give with meals.(Same as: Pyridium) Start Date: 02/20/16 Stop Date: 02/21/16 Status: DiscontinuedPyridium 100 mg oral tablet 100 mg=1 tab, PO, BID, PRN Dysuria, X 10 day, # 20 tab, 0 Refill(s), given to patient Start Date: 02/21/16 Stop Date: 03/02/16 Status: OrderedSaline Flush 0.9% 10 ml, Route: IVP, Drug Form: INJ, Dosing Weight 68.182, kg, PRN, PRN Line Flush , Start date: 02/19/16 9:57:00, Duration: 30 day, Stop date: 03/20/16 9:56:00 Notes: Same as: BD Posiflush Sterile Start Date: 02/19/16 Stop Date: 02/21/16 Status: Discontinued Results BLOOD BANK RESULTS Most recent to oldest [Reference Range]: 1 2 ABO/Rh B POS *Unknown* (02/19/16 12:11 PM) Antibody Scrn Negative (02/19/16 12:11 PM) Rhig Reqd See Note 1 (02/19/16 12:11 PM) 1Result Comment: 02/19/2016 13:40 [id number] This patient is not a candidate for Rh(O)D immune globulin.URINE AND STOOL Most recent to oldest [Reference Range]: 1 2 UA Turbidity [Clear] Slight *ABN* (02/19/16 8:30 AM) UA Color [Yellow] Red *ABN* (02/19/16 8:30 AM) UA pH [5.0-8.0] 7.0 (02/19/16 8:30 AM) UA Spec Grav [<=1.030] 1.013 (02/19/16 8:30 AM) UA Glucose [Negative mg/dL] Negative mg/dL *NA* (02/19/16 8:30 AM) UA Blood [Negative] Large *ABN* (02/19/16 8:30 AM) UA Ketones [Negative mg/dL] Negative mg/dL *NA* (02/19/16 8:30 AM) UA Protein [Negative mg/dL] 70 mg/dL *ABN* (02/19/16 8:30 AM) UA Urobilinogen [0.1-1.0 mg/dL] <=1.0 mg/dL *NA* (02/19/16 8:30 AM) UA Bili [Negative] Negative *NA* (02/19/16 8:30 AM) UA Leuk Est [Negative] Large *ABN* (02/19/16 8:30 AM) UA Nitrite [Negative] Negative (02/19/16 8:30 AM) UA WBC [0-5 /HPF] 43 /HPF *HI* (02/19/16 8:30 AM) UA RBC [0-2 /HPF] >182 /HPF *HI* (02/19/16 8:30 AM) UA Sq Epi [Few /LPF] Many /LPF *ABN* (02/19/16 8:30 AM) HEMATOLOGY Most recent to oldest [Reference Range]: 1 2 WBC [3.7-10.4 K/CMM] 9.7 K/CMM 9.7 K/CMM (02/21/16 6:25 AM) (02/19/16 12:11 PM) RBC [4.20-5.40 M/CMM] 3.54 M/CMM 3.45 M/CMM *LOW* *LOW* (02/21/16 6:25 AM) (02/19/16 12:11 PM) Hgb [12.0-16.0 g/dL] 11.3 g/dL 11.0 g/dL *LOW* *LOW* (02/21/16 6:25 AM) (02/19/16 12:11 PM) Hct [36.0-48.0 %] 33.4 % 32.8 % *LOW* *LOW* (02/21/16 6:25 AM) (02/19/16 12:11 PM) MCV [80.0-98.0 fL] 94.4 fL 95.0 fL (02/21/16 6:25 AM) (02/19/16 12:11 PM) MCH [27.0-31.0 pg] 31.9 pg 31.7 pg *HI* *HI* (02/21/16 6:25 AM) (02/19/16 12:11 PM) MCHC [32.0-36.0 g/dL] 33.8 g/dL 33.4 g/dL (02/21/16 6:25 AM) (02/19/16 12:11 PM) RDW [11.5-14.5 %] 12.9 % 13.4 % (02/21/16 6:25 AM) (02/19/16 12:11 PM) Platelet [133-450 K/CMM] 167 K/CMM 169 K/CMM (02/21/16 6:25 AM) (02/19/16 12:11 PM) MPV [7.4-10.4 fL] 7.5 fL 7.4 fL (02/21/16 6:25 AM) (02/19/16 12:11 PM) Segs [45.0-75.0 %] 66.8 % 71.9 % (02/21/16 6:25 AM) (02/19/16 12:11 PM) Lymphocytes [20.0-40.0 %] 24.3 % 19.2 % (02/21/16 6:25 AM) *LOW* (02/19/16:11 PM) Monocytes [2.0-12.0 %] 6.1 % 7.0 % (02/21/16 6:25 AM) (02/19/16 12:11 PM) Eosinophils [0.0-4.0 %] 2.3 % 1.5 % (02/21/16 6:25 AM) (02/19/16 12:11 PM) Basophils [0.0-1.0 %] 0.5 % 0.4 % (02/21/16 6:25 AM) (02/19/16 12:11 PM) Segs-Bands # [1.5-8.1 K/CMM] 6.5 K/CMM 7.0 K/CMM (02/21/16 6:25 AM) (02/19/16 12:11 PM) Lymphocytes # [1.0-5.5 K/CMM] 2.4 K/CMM 1.9 K/CMM (02/21/16 6:25 AM) (02/19/16 12:11 PM) Monocytes # [0.0-0.8 K/CMM] 0.6 K/CMM 0.7 K/CMM (02/21/16 6:25 AM) (02/19/16 12:11 PM) Eosinophils # [0.0-0.5 K/CMM] 0.2 K/CMM 0.1 K/CMM (02/21/16 6:25 AM) (02/19/16 12:11 PM) Immunizations Vaccine Date Refusal Reason influenza virus vaccine, inactivated 02/14/16 Procedures Procedure Date Related Diagnosis Body Site Stent placement Social History Social History Type Response Smoking Status Current some day smoker; Type: Cigarettes; Tobacco use per day: 4; Number of years: 10; Previous treatment: None; Ready to change: No; Concerns about tobacco use in household: No; Exposure to Tobacco Smoke smokes herself; Cigarette Smoking Last 365 Days Yes; Reg Smoking Cessation Counseling No Assessment and Plan Extracted from: Title: Discharge Summary Author: Andrew Riley MD Date: 02/21/16 20y/o at 26 weeks admitted 02/19/16 from ER s/p Left Ureteral stent placement due to nephrolithiasis due to worsening pain,low grade fever and possible stent displacement. Patient's USG confirmed stent placement is correct, there were no fevers, no evidence of a UTI, WBC remained normal, pain improved during her stay and was ready for discharge on 02/21/16. She was discharged with strict precautions and with Macrobid 100mg QD for suppressive therapy and Norco10/325 #30 for pain control. She is to follow up 02/25/16 at the [facility] and will call her urologist for their follow up recommendation. Her admission was due to her kidney stones, ureteral placement and abdominal pain with her only being an incidental finding during this admission. She is discharged today 02/21/16. Extracted from: Title: Clinical Document Author: Andrew Riley MD Date: 02/21/16 Progress Note - Daily [facility] Completed: Feb, 10:42 by Andrew Riley MD RM: [id number] - 01, TW WN21 CELESTINE CAR 20y (: 1995) F Attending: Mari Chance MD Service: Executive Sales Assistant Service Reason for Admission: RENAL STONES IN Working DRG: Urinary stones w/o [place] lithotri[place] w[place] [facility] status: None Specified=FULL CODE Current diet: Isolation: None Documented Allergies: NKDA SUBJECTIVE Patient tolerating PO well, pain controlled, without fever, without complaint OBJECTIVE abdomen mild tenderness, no rebound, denies fever, left abdomen and LUQ 24hr Labs 02/20 0625 WBC 9.7 RBC 3.54 L Hgb 11.3 L Hct 33.4 L MCV 94.4 MCH 31.9 H MCHC 33.8 RDW 12.9 Platelet 167 MPV 7.5 Segs 66.8 Monocytes 6.1 Lymphocytes 24.3 Eosinophils 2.3 Basophils 0.5 Segs-Bands # 6.5 Lymphocytes # 2.4 Monocytes # 0.6 Eosinophils # 0.2 Reyes still necessary (Yes/No): Line still necessary (Yes/No): Vitals Tmp(F) Pulse BP RR SpO2 FIO2 02/20 08:00 97.9 71 103/48 17 96 --- 02/20 03:30 97.9 71 98/50 18 95 --- 02/20 00:00 98 74 110/69 18 96 --- 02/19 20:00 98.1 81 119/82 18 98 --- 02/19 15:00 99.2 73 111/55 18 96 --- 24 Hr Tmax: 99.2F (37.33c) at 02/19 15:00 Vital Signs are the last 5 in the past 48 hours. Date Wt(kg) Wt(lb) Ht(cm) Ht(in) Method 02/18 (initial) 68.18 150.00 Estimated 02/18 160.02 63.00 Stated I&O Record In Out Bal 02/20 24hr Tot 30 0 30 02/19 24hr Tot 2908 1400 1508 Medications (7) Active Scheduled Meds (3): 02/20/16 magnesium hydroxide (Milk of Magnesia) 30 mL PO TID 02/20/16 multivitamin, 1 tab PO Daily 02/20/16 phenazopyridine (Pyridium) 100 mg PO TID-After Meals Unscheduled Meds: None PRN Meds (3): 02/20/16 acetaminophen-hydrocodone ([place] 10/325 oral tablet) 1 tab PO Q4H 02/19/16 promethazine 12.5 mg IVPB Q6H 300 ml/hr 02/19/16 sodium chloride (Saline Flush 0.9%) 10 ml IVP PRN One Time Meds: None Continuous Infusions (1): 02/19/16 Lactated Ringers Injection IV 1,000 mL (Lactated Ringers IV 1,000 mL) 1,000 mL 125 ml/hr ASSESSMENT & EXAM Kidney stones Ureteral stent Abdominal pain IUP at 26 weeks PLAN & TREATMENT Patient's admission was for complications related to the patient's kidney stones, stent placement and abdominal pain, all unrelated to the . was incedental to the medical problems th e patient was admitted to [facility]. She is being discharged with [place] 10/325 # 30, Macrobid 100mg BID daily for suppressive therapy. Patient will f/u in [facility] 02-25-16 as scheduled. 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 female with a hx of L nephrolithiasis, s/p L ureteral stent placement on 02/16/2016, who presented to the ED today because of increasing pain, hematuria a nd a low-grade fever of 99. She denies nausea/vomitting. Her pain is currently rated as a 5/10. She denies passage of any stone fragments. She admits to some urinary frequency and urgency. Past Medical History: Depression Social History: Tobacco Details: Use: Current some day smoker. Type: Cigarettes. 4 per day. 10 year( s). Previous treatment: None. Ready to change: No. Household tobacco concerns : No. Tobacco smoke exposure: smokes [place] lf. Did the Patient Smoke Cigarettes Anytime [...] Yes. Cessation Counseling Provided? No. Details: Use: Unknown if ever smoked. Tobacco smoke exposure: None. Did the Patient Smoke Cigarettes Anytime During the Last 365 Days? No. Cessation Counseling Provided? No. Past Surgical History: Stent placement Family History: Father: High blood pressure Objective: Vital Signs (last 24 hrs) Last Charted Temp Oral 98 DegF (FEB 18 09:40) Heart Rate Peripheral 63 bpm (FEB 18 10:40) Resp Rate 18 BRMIN (FEB 18 10:40) SBP 111 mmHg (FEB 18 10:40) DBP 62 mmHg (FEB 18 10:40) Weight 68.182 kg (FEB 18 07:37) Height 160.02 cm (FEB 18 07:37) BMI 26.63 (FEB 18 07:37) Physical Exam: uncomfortable, AOx3 gravid abdomen mild L CVAT ext wwp b/l I/O Intake Output Balance 02/19/2016 7a-3p 551.00 0.00 551.00 As of 13:35 3p-11p 0.00 0.00 0.00 11p-7a 0.00 0.00 0.00 Totals 551.00 0.00 551.00 02/18/2016 7a-3p 0.00 0.00 0.00 3p-11p 0.00 0.00 0.00 11p-7a 0.00 0.00 0.00 Totals 0.00 0.00 0.00 02/17/2016 7a-3p 0.00 0.00 0.00 3p-11p 0.00 0.00 0.00 11p-7a 0.00 0.00 0.00 Totals 0.00 0.00 0.00 Medications (5) Active Scheduled: (1) multivitamin w/FA 0.8 mg Tab 1 tab, PO, Daily Continuous: (1) Lactated Ringers 1,000 mL 1,000 mL, IV, 125 ml/hr PRN: (3) MORPhine sulfate PF 2 mg/ml CARP 2 mg 1 mL, IV, Q4H promethazine 12.5 mg / NS 50 ml 12.5 mg 50 mL, IVPB, Q6H sodium chloride 0.9% 10ml sterile flush syr BD 10 ml, IVP, PRN Labs (Last four charted values) WBC 9.7 (FEB 18) Hgb L 11.0 (FEB 18) Hct L 32.8 (FEB 18) Plt 169 (FEB 18) Assessment & Plan: 20 y.o. F with a hx of L nephrolithiasis, s/p L ureteral stent placement on 02/16/2016 who presents to the OB ED with flank pain, generalized fatigue, and gross hematuria. -Obtain renal/retroperitoneal U/S to evaluate stent position/hydro - F/U on urine culture. U/A did demonstrate pyuria which is expected with a stent in place. However, given risk of urinary infection, would consider empiric abx until cultures are finalized. - Pain control (pyridium 100 mg and/or ditropan mg PRN urinary frequency/ dysuria may be considered if no contraindication from OB standpoint)
--- OUTSIDE RECORDS SUMMARY | 2018-08-25 06:37 | XMS REPORT | Summary of Care ---
:1995 Author Organization [facility] Address [address] [place], [place] [address]- Encounter HQ Sacha(FIN) [id number] Date(s): 02/12/16 - 02/17/[address] [address]- Discharge Diagnosis: Nephrolithiasis Discharge Diagnosis: Acute pyelonephritis in second trimester, antepartum Discharge Disposition: Home Attending Physician: Mari Chance MD Admitting Physician: Mari Chance MD Vital Signs Most recent to oldest 1 2 3 [Reference Range]: Height 91.7 cm 160.02 cm 160.02 cm (02/13/16 12:24 AM) (02/12/16 9:11 PM) (02/12/16 9:10 PM) Temperature Oral [96.4-99.1 98.8 DegF 99.2 DegF 98.4 DegF DegF] (02/17/16 8:00 AM) *HI* (02/16/16 11:30 PM) (02/17/16 4:00 AM) Blood Pressure [90-140/60-90 121/62 mmHg 109/71 mmHg 111/67 mmHg mmHg] (02/17/16 8:00 AM) (02/17/16 4:00 AM) (02/16/16 11:30 PM) Respiratory Rate [14-20 19 BRMIN 18 BRMIN 18 BRMIN BRMIN] (02/17/16 8:00 AM) (02/17/16 4:00 AM) (02/16/16 11:30 PM) Peripheral Pulse Rate [60-100 63 bpm 63 bpm 67 bpm bpm] (02/17/16 8:00 AM) (02/17/16 4:00 AM) (02/16/16 11:30 PM) Weight 3.1 kg 68.182 kg 68.182 kg (02/13/16 12:24 AM) (02/12/16 9:11 PM) (02/12/16 9:10 PM) Body Mass Index 3.69 m2 26.63 m2 26.63 m2 (02/13/16 12:24 AM) (02/12/16 9:11 PM) (02/12/16 9:10 PM) Problem List Condition Effective Dates Status Health Status Informant Depression(Confirmed) Resolved Infectious disease in mother Active complicating , childbirth AND/OR puerperium(Confirmed) (Confirmed) 02/13/16 Active Tobacco use(Confirmed) Active Allergies, Adverse Reactions, Alerts Substance Reaction Severity Status NKDA Active Medications albuterol 0.083% inhalation solution 2.49 mg, 3 mL, Route: NEB, Drug form: SOLN, Q5Min, Dosing Weight 3.1, kg, PRN Wheezing, Priority: STAT, Start date: 02/16/16 15:53:00, Duration: 30 day, Stop date: 03/17/16 15:52:00 Notes: SEE RT DOCUMENTATION (Same as: Proventil) Start Date: 02/16/16 Stop Date: 02/16/16 Status: DiscontinuedAncef 2 gm, 50 mL, Route: IVPB, Drug form: INJ, ABXQ8H, Dosing Weight 68.182, kg, Priority: STAT, Start date: 02/12/16 21:22:00, Duration: 30 day, Stop date: 14:00:00 Start Date: 02/12/16 Stop Date: 02/13/16 Status: DiscontinuedAncef 2 gm, 50 mL, Route: IVPB, Drug form: INJ, ABXQ8H, Dosing Weight 68.182, kg, Start date: 02/13/16 23:59:00, Duration: 30 day, Stop date: 03/14/16 15:59:00 Start Date: 02/13/16 Stop Date: 02/17/16 Status: DiscontinuedColace 100 mg oral capsule 100 mg, 1 cap, Route: PO, Drug form: CAP, BID, Dosing Weight 3.1, kg, Start date : 02/16/16 20:35:00,Duration: 30 day, Stop date: 03/17/16 17:00:00 Notes: (Same as: Colace) (Do Not Crush) Start Date: 02/16/16 Stop Date: 02/17/16 Status: BylbmcqsddewO4A 1/2NS + KCL 20mEq/L 1000ml (Premix) 1,000 mL 1,000 mL, Rate: 75 ml/hr, Infuse over: 13.3 hr, Route: IV, Dosing Weight 3.1 kg , Total Volume: 1,000, Start date: 02/16/16 15:58:00, Duration: 30 day, Stop date: 03/17/16 15:57:00 Notes: PREMIX IV - Do Not AlterWASTE: F/P - Sink; E - Municipal Trash Bin Start Date: 02/16/16 Stop Date: 02/17/16 Status: DiscontinuedDemerol HCl 25 mg, 1 mL, Route: IM, Drug form: INJ, ONCE, Dosing Weight 3.1, kg, PRN Pain Score 1-5, Start date:02/15/16 0:31:00, Stop date: 02/19/16 0:30:00 Notes: (Same as: Demerol) "Use Precaution in Elderly, Seizure disorders, and Renal impairment" Start Date: 02/15/16 Stop Date: 02/15/16 Status: CompletedDiclegis 10 mg-10 mg oral delayed release tablet 1 tab, PO, Bedtime, # 14 tab, 0 Refill(s) Start Date: 02/13/16 Stop Date: 02/27/16 Status: SuspendeddiphenhydrAMINE 12.5 mg, 0.25 mL, Route: IVP, Drug form: INJ, PRN, Dosing Weight 3.1, kg, PRN Itching, Start date: 02/16/16 15:53:00, Duration: 30 day, Stop date: 03/17/16 15 :52:00 Notes: (Same as: Benadryl) Start Date: 02/16/16 Stop Date: 02/16/16 Status: DiscontinuedePHEDrine 5 mg, 0.1 mL, Route: IVP, Drug form: INJ, Q5Min, Dosing Weight 3.1, kg, PRN Low Blood Pressure, Start date: 02/16/16 15:53:00, Duration: 30 day, Stop date: 15:52:00 Notes: (Same as: ePHEDrine Sulfate) Start Date: 02/16/16 Stop Date: 02/16/16 Status: DiscontinuedfentaNYL 25 microgram, 0.5 mL, Route: IVP, Drug form: INJ, Q5Min, Dosing Weight 3.1, kg, PRN Pain Score 4-6, Start date: 02/16/16 15:53:00, Duration: 4 doses or times, Stop date: Limited # of times Notes: (Same as: Sublimaze) Preservative free. Start Date: 02/16/16 Stop Date: 02/16/16 Status: Completedflumazenil 0.2 mg, 2 mL, Route: IVP, Drug form: INJ, PRN, Dosing Weight 3.1, kg, PRN Benzodiazepine Reversal, Initial dose, Start date: 02/16/16 15:53:00, Duration: 30 day, Stop date: 03/17/16 15:52:00 Notes: (Same as: Romazicon) Start Date: 02/16/16 Stop Date: 02/16/16 Status: Discontinuedglycopyrrolate 0.2 mg, 1 mL, Route: IVP, Drug form: INJ, Q5Min, Dosing Weight 3.1, kg, PRN Bradycardia, Start date:02/16/16 15:53:00, Duration: 3 doses or times, Stop date : Limited # of times Notes: (Same as: Robinul) Start Date: 02/16/16 Stop Date: 02/16/16 Status: Discontinuedhydromorphone 0.5 mg, 0.5 mL, Route: IVP, Drug form: INJ, Q5Min, Dosing Weight 3.1, kg, PRN Pain Score 7-10, Startdate: 02/16/16 15:53:00, Duration: 4 doses or times, Stop date: Limited # of times Notes: Same as: Dilaudid Start Date: 02/16/16 Stop Date: 02/16/16 Status: Discontinuedinfluenza virus vaccine, inactivated 0.5 mL, Route: IM, Drug Form: SUSP, QAM, Start date: 02/14/16 9:00:00, Stop date : 02/14/16 18:00:00 Notes: (Same as: Fluzone PF Pediatric)For patients 6 - 35 months of age (0.25 mL IM)Shake well before use Start Date: 02/14/16 Stop Date: 02/14/16 Status: Completedinfluenza virus vaccine, inactivated 0.5 mL, Route: IM, Drug Form: SUSP, Daily, Start date: 02/13/16 9:00:00, Duration: 1 doses or times,Stop date: 02/13/16 9:00:00 Notes: (Same as: Fluzone PF Pediatric)For patients 6 - 35 months of age (0.25 mL IM)Shake well before use Start Date: 02/13/16 Stop Date: 02/13/16 Status: Deletedlabetalol 10 mg, 2 mL, Route: IVP, Drug form: INJ, Q5Min, Dosing Weight 3.1, kg, PRN Elevated BP, Start date: 02/16/16 15:53:00, Duration: 5 doses or times, Stop date: Limited # of times Start Date: 02/16/16 Stop Date: 02/16/16 Status: DiscontinuedLactated Ringers Injection IV 1,000 mL 1,000 mL, Rate: 50 ml/hr, Infuse over: 20 hr, Route: IV, Dosing Weight 3.1 kg, Total Volume: 1,000, Start date: 02/16/16 15:53:00, Duration: 30 day, Stop date : 03/17/16 15:52:00 Start Date: 02/16/16 Stop Date: 02/16/16 Status: Discontinuedlevalbuterol 0.63 mg, 3 mL, Route: NEB, Drug form: SOLN, Q20Min, Dosing Weight 3.1, kg, PRN Wheezing, Start date:02/16/16 15:53:00, Duration: 4 doses or times, Stop date: Limited # of times Notes: SEE RT DOCUMENTATION (Same as:Xopenex)Non-Formulary Start Date: 02/16/16 Stop Date: 02/16/16 Status: DiscontinuedLevsin SL 0.125 mg, 1 tab, Route: SL, Drug form: TAB, Q4H, Dosing Weight 3.1, kg, PRN Bladder Spasm, Start date: 02/16/16 15:58:00, Duration: 30 day, Stop date: 03/17 15:57:00 Notes: (Same as: Levsin) Take 30 min before meal Start Date: 02/16/16 Stop Date: 02/17/16 Status: DiscontinuedLR IV 1,000 mL 1,000 mL, Rate: 125 ml/hr, Infuse over: 8 hr, Route: IV, Dosing Weight 68.182 kg , Total Volume: 1,000, Start date: 02/12/16 21:18:00, Duration: 30 day, Stop date: 03/13/16 21:17:00 Start Date: 02/12/16 Stop Date: 02/17/16 Status: DiscontinuedLR IV 1,000 mL 1,000 mL, Rate: 40 ml/hr, Infuse over: 25 hr, Route: IV, Dosing Weight 3.1 kg, Total Volume: 1,000, Start date: 02/16/16 12:37:00, Duration: 30 day, Stop date : 03/17/16 12:36:00 Start Date: 02/16/16 Stop Date: 02/17/16 Status: Discontinuedmeperidine 25 mg, 1 mL, Route: IM, Drug form: INJ, Q6H, Dosing Weight 3.1, kg, PRN Pain Score 4-6, Start date: 02/15/16 8:21:00, Duration: 4 day, Stop date: 02/19/16 8: 20:00 Notes: (Same as: Demerol) "Use Precaution in Elderly, Seizure disorders, and Renal impairment" Start Date: 02/15/16 Stop Date: 02/17/16 Status: Discontinuedmorphine Sulfate 2 mg, 1 mL, Route: IVP, Drug form: INJ, Q4H, Dosing Weight 68.182, kg, Priority : STAT, Start date: 02/12/16 22:13:00, Duration: 30 day, Stop date: 03/13/16 20: 00:00 Notes: (Same as:MORPhine Sulfate) Start Date: 02/12/16 Stop Date: 02/17/16 Status: Discontinuedmultivitamin, 1 tab, Route: PO, Drug Form: TAB, Dosing Weight 68.182, kg, Daily, Start date: 02/13/16 9:00:00, Duration: 30 day, Stop date: 03/13/16 9:00:00 Start Date: 02/13/16 Stop Date: 02/17/16 Status: Discontinuednaloxone 0.04 mg, 0.1 mL, Route: IVP, Drug form: INJ, Q2MIN, Dosing Weight 3.1, kg, PRN Narcotic Reversal, Start date: 02/16/16 15:53:00, Duration: 8 doses or times, Stop date: Limited # of times Notes: Same as Narcan Start Date: 02/16/16 Stop Date: 02/16/16 Status: DiscontinuedNorco 5/325 oral tablet 2 tab, Route: PO, Drug Form: TAB, Dosing Weight 3.1, kg, Q6H, PRN Pain Score 4-6 , Start date: 02/17/16 6:13:00, Duration: 30 day, Stop date: 03/18/16 6:12:00 Notes: (Same as: Stanton 325/5) Do not exceed 4gm/day of acetaminophen. Start Date: 02/17/16 Stop Date: 02/17/16 Status: Discontinuedomeprazole 20 mg, Route: PO, Drug form: ECTAB, PRN, Dosing Weight 3.1, kg, PRN Heartburn, Start date: 02/16/16 15:59:00, Duration: 30 day, Stop date: 03/17/16 15:58:00 Start Date: 02/16/16 Stop Date: 02/16/16 Status: Deletedomeprazole 20 mg oral enteric coated tablet 20 mg=1 tab, PO, PRN, # 30 tab, 3 Refill(s) Start Date: 02/13/16 Status: Suspendedondansetron 4 mg, 2 mL, Route: IVP, Drug form: INJ, ONCE, Dosing Weight 3.1, kg, PRN Nausea & Vomiting, Start date: 02/16/16 15:53:00 Notes: (Same as: April) MEDICATION WASTE Product Size: 4 mgProduct Wasted: ___ mg Start Date: 02/16/16 Stop Date: 02/16/16 Status: DiscontinuedPrenatal-U oral capsule 1 cap, PO, Daily, # 30 cap, 0 Refill(s) Start Date: 02/13/16 Status: SuspendedPrenatal-U oral capsule 1 cap, Route: PO, Drug Form: CAP, Dosing Weight 3.1, kg, Daily, Start date: 12/03 9:00:00, Duration: 30 day, Stop date: 03/17/16 9:00:00 Start Date: 02/17/16 Stop Date: 02/16/16 Status: Deletedpromethazine 6.25 mg, 25 mL, Route: IVPB, Drug form: SOLN, ONCE, Dosing Weight 3.1, kg, PRN Nausea & Vomiting, Start date: 02/16/16 15:53:00 Start Date: 02/16/16 Stop Date: 02/16/16 Status: DiscontinuedProtonix 40 mg, 1 tab, Route: PO, Drug form: ECTAB, PRN, PRN Indigestion, Start date: 16:09:00, Duration: 30 day, Stop date: 03/17/16 16:08:00 Notes: Tablet should not be chewed or crushed.(Same as: Protonix) Start Date: 02/16/16 Stop Date: 02/17/16 Status: Discontinuedracepinephrine 11.25 mg, 0.5 mL, Route: NEB, Drug Form: SOLN, Dosing Weight 3.1, kg, PRN, PRN Shortness of breath, Start date: 02/16/16 15:53:00, Duration: 30 day, Stop date : 03/17/16 15:52:00 Notes: (racepinephrine *2.25% inh 0.5ml SOLN) (Same as:S2) Start Date: 02/16/16 Stop Date: 02/16/16 Status: DiscontinuedSaline Flush 0.9% 10 ml, Route: IVP, Drug Form: INJ, Dosing Weight 68.182, kg, PRN, PRN Line Flush , Start date: 02/12/16 22:10:00, Duration: 30 day, Stop date: 03/13/16 22:09:00 Notes: Same as: BD Posiflush Sterile Start Date: 02/12/16 Stop Date: 02/17/16 Status: DiscontinuedTylenol 650 mg, 2 tab, Route: PO, Drug form: TAB, Q6H, Dosing Weight 3.1, kg, PRN Pain Score 1-3, Start date: 02/15/16 0:30:00, Duration: 30 day, Stop date: 03/16/16 0 :29:00 Notes: Do not exceed 4 gm/day. (Same as: Tylenol) Start Date: 02/15/16 Stop Date: 02/17/16 Status: DiscontinuedTylenol with Codeine #3 oral tablet 1 tab, PO, Q6H, PRN Pain, X 15 day, # 60 tab, 0 Refill(s) Start Date: 02/17/16 Stop Date: 03/03/16 Status: Ordered Results BLOOD BANK RESULTS Most recent to oldest [Reference Range]: 1 ABO/Rh B POS *Unknown* (02/12/16 9:29 PM) Antibody Scrn Negative (02/12/16 9:29 PM) Rhig Reqd See Note 1 (02/12/16 9:29 PM) 1Result Comment: 02/12/2016 22:52 [email or web address] This patient is not a candidate for Rh(O)D immune globulin.ELECTROLYTES Most recent to oldest [Reference Range]: 1 Sodium Lvl [135-145 mEq/L] 142 mEq/L (02/12/16 9:29 PM) Potassium Lvl [3.5-5.1 mEq/L] 3.4 mEq/L *LOW* (02/12/16 9:29 PM) Chloride Lvl [95-109 mEq/L] 107 mEq/L (02/12/16 9:29 PM) CO2 [24-32 mEq/L] 26 mEq/L (02/12/16 9:29 PM) AGAP [10.0-20.0 mEq/L] 12.4 mEq/L (02/12/16 9:29 PM) CHEM PANEL Most recent to oldest [Reference Range]: 1 Creatinine Lvl [0.50-1.40 mg/dL] 0.36 mg/dL *LOW* (02/12/16 9:29 PM) eGFR 158 mL/min/1.73m2 1 *NA* (02/12/16 9:29 PM) BUN [7-22 mg/dL] 6 mg/dL *LOW* (02/12/16 9:29 PM) B/C Ratio [6-25] 17 (02/12/16 9:29 PM) Glucose Lvl [70-99 mg/dL] 84 mg/dL (02/12/16 9:29 PM) Total Protein [6.4-8.4 g/dL] 6.5 g/dL (02/12/16 9:29 PM) Albumin Lvl [3.5-5.0 g/dL] 3.2 g/dL *LOW* (02/12/16 9:29 PM) Globulin [2.0-4.0 g/dL] 3.3 g/dL (02/12/16 9:29 PM) A/G Ratio [0.7-1.6] 1.0 (02/12/16 9:29 PM) Calcium Lvl [8.5-10.5 mg/dL] 7.9 mg/dL *LOW* (02/12/16 9:29 PM) ALT [0-65 unit/L] 17 unit/L (02/12/16 9:29 PM) AST [0-37 unit/L] 13 unit/L (02/12/16 9:29 PM) Alk Phos [39-136 unit/L] 60 unit/L (02/12/16 9:29 PM) Bili Total [0.2-1.3 mg/dL] 0.2 mg/dL (02/12/16 9:29 PM) 1Result Comment: The eGFR is calculated [...] 1 U Amph Scr [Negative] Negative *NA* (02/12/16 9:29 PM) U Jeannie Scr [Negative] Negative *NA* (02/12/16 9:29 PM) U Benzodia Scr [Negative] Negative *NA* (02/12/16 9:29 PM) U Cocaine Scr [Negative] Negative *NA* (02/12/16 9:29 PM) U Opiate Scr [Negative] Negative *NA* (02/12/16 9:29 PM) U Phencyc Scr [Negative] Negative *NA* (02/12/16 9:29 PM) U Cannab Scr [Negative] Negative *NA* (02/12/16 9:29 PM) UDS Note See Note *NA* (02/12/16 9:29 PM) URINE AND STOOL Most recent to oldest [Reference Range]: 1 UA Turbidity [Clear] Slight *ABN* (02/12/16 9:29 PM) UA Color [Yellow] Yellow *NA* (02/12/16 9:29 PM) UA pH [5.0-8.0] 7.0 (02/12/16 9:29 PM) UA Spec Grav [<=1.030] 1.011 (02/12/16 9:29 PM) UA Glucose [Negative mg/dL] Negative mg/dL *NA* (02/12/16 9:29 PM) UA Blood [Negative] Negative (02/12/16 9:29 PM) UA Ketones [Negative mg/dL] Negative mg/dL *NA* (02/12/16 9:29 PM) UA Protein [Negative mg/dL] Negative mg/dL (02/12/16 9:29 PM) UA Urobilinogen [0.1-1.0 mg/dL] 2.0 mg/dL *HI* (02/12/16 9:29 PM) UA Bili [Negative] Negative *NA* (02/12/16 9:29 PM) UA Leuk Est [Negative] Moderate *ABN* (02/12/16 9:29 PM) UA Nitrite [Negative] Negative (02/12/16 9:29 PM) UA WBC [0-5 /HPF] 9 /HPF *HI* (02/12/16 9:29 PM) UA RBC [0-2 /HPF] 2 /HPF (02/12/16 9:29 PM) UA Bacteria [None Seen /HPF] Occasional /HPF *NA* (02/12/16 9:29 PM) UA Sq Epi [Few /LPF] Occasional /LPF *NA* (02/12/16 9:29 PM) UA Amorph Lisa [None Seen /HPF] Occasional /HPF *NA* (02/12/16 9:29 PM) UA Mucus [None Seen /LPF] Few /LPF *NA* (02/12/16 9:29 PM) HEMATOLOGY Most recent to oldest [Reference Range]: 1 WBC [3.7-10.4 K/CMM] 9.7 K/CMM (02/12/16 9:29 PM) RBC [4.20-5.40 M/CMM] 3.56 M/CMM *LOW* (02/12/16 9:29 PM) Hgb [12.0-16.0 g/dL] 11.3 g/dL *LOW* (02/12/16 9:29 PM) Hct [36.0-48.0 %] 33.7 % *LOW* (02/12/16 9:29 PM) MCV [80.0-98.0 fL] 94.6 fL (02/12/16 9:29 PM) MCH [27.0-31.0 pg] 31.8 pg *HI* (02/12/16 9:29 PM) MCHC [32.0-36.0 g/dL] 33.6 g/dL (02/12/16 9:29 PM) RDW [11.5-14.5 %] 13.3 % (02/12/16 9:29 PM) Platelet [133-450 K/CMM] 220 K/CMM (02/12/16 9:29 PM) MPV [7.4-10.4 fL] 7.2 fL *LOW* (02/12/16 9:29 PM) Segs [45.0-75.0 %] 68.4 % (02/12/16 9:29 PM) Lymphocytes [20.0-40.0 %] 23.3 % (02/12/16 9:29 PM) Monocytes [2.0-12.0 %] 7.0 % (02/12/16 9:29 PM) Eosinophils [0.0-4.0 %] 1.0 % (02/12/16 9:29 PM) Basophils [0.0-1.0 %] 0.3 % (02/12/16 9:29 PM) Segs-Bands # [1.5-8.1 K/CMM] 6.6 K/CMM (02/12/16 9:29 PM) Lymphocytes # [1.0-5.5 K/CMM] 2.2 K/CMM (02/12/16 9:29 PM) Monocytes # [0.0-0.8 K/CMM] 0.7 K/CMM (02/12/16 9:29 PM) Eosinophils # [0.0-0.5 K/CMM] 0.1 K/CMM (02/12/16 9:29 PM) Immunizations Vaccine Date Refusal Reason influenza [...] No Assessment and Plan Extracted from: Title: Clinical Document Author: Shana Munguia MD Date: Attending: Mari Chance MD Service: Marketing Analytics Specialist Service Code status: None Specified=FULL CODE Reason for Admission: RENAL STONES IN Working DRG: Urinary stones w/o esw lithotripsy w/o SNF Isolation: None Documented Consulting Physicians: Rodolfo Naranjo MD Office: MSO: [id number] Service: Urology Maciel Ramirez MD Office: MSO: [phone] Service: Urology Mari Chance MD Office: MSO: [id number] Service: Marketing Analytics Specialist Dale Lundberg MD Office: MSO: [id number] Service: Vitals Tmp(F) Pulse BP RR SpO2 FIO2 02/16 04:00 99.2 63 109/71 18 98 --- 02/15 23:30 98.4 67 111/67 18 95 --- 02/15 20:00 98.6 87 109/61 18 96 --- 02/15 18:15 ---- 72 126/74 18 --- --- 02/15 17:45 ---- 68 116/69 18 --- --- 24 Hr Tmax: 99.2F (37.33c) at 02/16 04:00 Vital Signs are the last 5 in the past 48 hours. Medication List Active Medications Ordered acetaminophen: 650 mg, 2 tab, PO, Q6H, PRN: Pain Score 1-3. ceFAZolin: 2 gm, 50 mL, 100 ml/hr, IVPB, ABXQ8H. docusate: 100 mg, 1 cap, PO, BID. hyoscyamine: 0.125 mg, 1 tab, SL, Q4H, PRN: Bladder Spasm. Lactated Ringers Injection IV 1,000 mL: 125 ml/hr, IV, Stop: 21:17:00. Lactated Ringers Injection IV 1,000 mL: 40 ml/hr, IV, Stop: 03/17/16 12:36:00. LVP solution with potassium 1,000 mL: 75 ml/hr, IV, Stop: 03/17/16 15:57:00. meperidine: 25 mg, 1 mL, IM, Q6H, PRN: Pain Score 4-6. morphine Sulfate: 2 mg, 1 mL, IVP, Q4H. multivitamin, : 1 tab, PO, Daily. pantoprazole: 40 mg, 1 tab, PO, PRN, PRN: Indigestion. sodium chloride: 10 ml, IVP, PRN, PRN: Line Flush. Prescribed acetaminophen-codeine: 1 tab, PO, Q6H, for 15 day, PRN: Pain, 60 tab , 0 Refill(s). Suspended doxylamine-pyridoxine: 1 tab, PO, Bedtime, for 14 day, 14 tab, 0 Refill(s). multivitamin, : 1 cap, PO, Daily, 30 cap, 0 Refill(s). omeprazole: 20 mg, 1 tab, PO, PRN, 30 tab, 3 Refill(s). Medications Inactivated in the Last 72 Hours albuterol: 2.49 mg, 3 mL, NEB, Q5Min, PRN: Wheezing. ceFAZolin: 2 gm, PYXIS, ONCE. citric acid-sodium citrate: 30 mL, PYXIS, ONCE. citric acid-sodium citrate: 30 mL, PYXIS, ONCE. dexamethasone: 4 mg, 1 mL, PYXIS, ONCE. diphenhydrAMINE: 12.5 mg, 0.25 mL, IVP, PRN, PRN: Itching. ePHEDrine: 5 mg, 0.1 mL, IVP, Q5Min, PRN: Low Blood Pressure. famotidine: 20 mg, 2 mL, PYXIS, ONCE. fentaNYL: 100 microgram, 2 mL, PYXIS, ONCE. fentaNYL: 100 microgram, 2 mL, PYXIS, ONCE. fentaNYL: 25 microgram, 0.5 mL, IVP, Q5Min, PRN: Pain Score 4-6. flumazenil: 0.2 mg, 2 mL, IVP, PRN, PRN: Benzodiazepine Reversal. glycopyrrolate: 0.4 mg, 2 mL, PYXIS, ONCE. glycopyrrolate: 0.2 mg, 1 mL, IVP, Q5Min, PRN: Bradycardia. hydromorphone: 0.5 mg, 0.5 mL, IVP, Q5Min, PRN: Pain Score 7-10. influenza virus vaccine, inactivated: 0.5 mL, IM, QAM. iohexol: 50 mL, PYXIS, ONCE. labetalol: 10 mg, 2 mL, IVP, Q5Min, PRN: Elevated BP. Lactated Ringers Injection IV 1,000 mL: 50 ml/hr, IV, Stop: 03/17/16 15:52:00. levalbuterol: 0.63 mg, 3 mL, NEB, Q20Min, PRN: Wheezing. lidocaine: 200 mg, 20 mL, PYXIS, ONCE. meperidine: 25 mg, 1 mL, IM, ONCE, PRN: Pain Score 1-5. metoclopramide: 10 mg, 2 mL, PYXIS, ONCE. multivitamin, : 1 cap, PO, Daily. naloxone: 0.04 mg, 0.1 mL, IVP, Q2MIN, PRN: Narcotic Reversal. omeprazole: 20 mg, PO, PRN, PRN: Heartburn. ondansetron: 4 mg, 2 mL, PYXIS, ONCE. ondansetron: 4 mg, 2 mL, IVP, ONCE, PRN: Nausea & Vomiting. phenylephrine: 1,000 microgram, 10 mL, PYXIS, ONCE. promethazine: 6.25 mg, 25 mL, 100 ml/hr, IVPB, ONCE, PRN: Nausea & Vomiting. propofol: 200 mg, 20 mL, PYXIS, ONCE. racepinephrine: 11.25 mg, 0.5 mL, NEB, PRN, PRN: Shortness of breath. rocuronium: 50 mg, 5 mL, PYXIS, ONCE. succinylcholine: 200 mg, 10 mL, PYXIS, ONCE. Allergies: NKDA This patient was admitted for pain control secondary to nephrolithiasis, she is now s/p stent placement by Urology. This patient's hospital course has been uncomplicated. At discharge, her vitals were w ithing normal limits, she was was afebrile and her physical examination was stable. She is being discharged home with instructions to follow-up with her primary ASTRONOMY DEPARTMENT CHAIR. Return to the ER if symptoms retu rn, remain persistent or worsen. The patient voiced understanding and expressed thanks. Extracted from: Title: Clinical Document Author: Shana Munguia MD Date: Attending: Mari Chance MD Service: Marketing Analytics Specialist Service Code status: None Specified=FULL CODE Reason for Admission: RENAL STONES IN Working DRG: Urinary stones w/o esw lithotripsy w/o SNF Isolation: None Documented Consulting Physicians: Rodolfo Naranjo MD Office: MSO: [id number] Service: Urology Maciel Ramirez MD Office: MSO: [phone] Service: Urology Mari Chance MD Office: MSO: [id number] Service: Marketing Analytics Specialist Dale Lundberg MD Office: MSO: [id number] Service: Date Wt(kg) Wt(lb) Ht(cm) Ht(in) Method 02/12 3.10 6.82 91.70 36.10 Measured 02/11 (initial) 68.18 150.00 Measured 02/11 160.02 63.00 Stated Vitals Tmp(F) Pulse BP RR SpO2 FIO2 02/16 04:00 99.2 63 109/71 18 98 --- 02/15 23:30 98.4 67 111/67 18 95 --- 02/15 20:00 98.6 87 109/61 18 96 --- 02/15 18:15 ---- 72 126/74 18 --- --- 02/15 17:45 ---- 68 116/69 18 --- --- 24 Hr Tmax: 99.2F (37.33c) at 02/16 04:00 Vital Signs are the last 5 in the past 48 hours. Medications (12) Active Scheduled Meds (4): 02/13/16 ceFAZolin (Ancef) 2 gm IVPB ABXQ8H 100 ml/hr 02/16/16 docusate (Colace 100 mg oral capsule) 100 mg PO BID 02/12/16 morphine Sulfate 2 mg IVP Q4H 02/13/16 multivitamin, 1 tab PO Daily Unscheduled Meds: None PRN Meds (5): 02/15/16 acetaminophen (Tylenol) 650 mg PO Q6H 02/16/16 hyoscyamine (Levsin SL) 0.125 mg SL Q4H 02/15/16 meperidine 25 mg IM Q6H 02/16/16 pantoprazole (Protonix) 40 mg PO PRN 02/12/16 sodium chloride (Saline Flush 0.9%) 10 ml IVP PRN One Time Meds: None Continuous Infusions (3): 02/16/16 LVP solution with potassium 1,000 mL (D5W 1/2NS + KCL 20mEq/L 1000ml ( Premix) 1,000 mL) 1,000 mL 75 ml/hr 02/12/16 Lactated Ringers Injection IV 1,000 mL (LR IV 1,000 mL) 1,000 mL 125 ml/hr 02/16/16 Lactated Ringers Injection IV 1,000 mL (LR IV 1,000 mL) 1,000 mL 40 ml /hr Maternal History (ST) Maternal History : 1 Maternal Pre-Anabela Labs Transcribed ABO Blood Type: B+ Transcribed Substance Abuse: Tobacco Transcribed GBS results: Unknown Transcribed HBsAg: Unknown Transcribed HIV Status: Unknown Transcribed HIV 3rd Trimester: Unknown Transcribed RPR/VDRL Results: Unknown Transcribed STD Results: None, Unknown Maternal Risk Factors Maternal Risk Factors Antepartum: Infection, Tobacco use during History (ST) History Feeding: Exclusive Vitals Tmp(F) Tmp(C) Ttype BP MAP Pulse RR SpO2 FIO2 ETCO2 02/16 04:00 99.2 37.33 oral 109/71 --- 63 18 98 --- --- 02/15 23:30 98.4 36.89 oral 111/67 --- 67 18 95 --- --- 02/15 20:00 98.6 37.00 oral 109/61 --- 87 18 96 --- --- 02/15 18:15 ---- ---- ---- 126/74 --- 72 18 --- --- --- 02/15 17:45 ---- ---- ---- 116/69 --- 68 18 --- --- --- 24 Hr Tmax: 99.2F (37.33c) at 02/16 04:00 Vital Signs are the last 5 in the past 48 hours. 24 Hr Tmin: 97.5F (36.39c) at 02/15 16:20 Weights are the last 5 in 60 days, plus initial. Date Wt(kg) Wt(lb) Ht(cm) Ht(in) Method BMI 02/12 3.10 6.82 91.70 36.10 Measured 3.7 02/11 (initial) 68.18 150.00 Measured 26.6 02/11 160.02 63.00 Stated Most Recent Scores: 02/17/16 Pain Intensity NRS (0-10) 6 02/16/16 Ty Rivera Fall Score 8 02/16/16 Brendan Score 20 02/12/16 Kaye Coma Score 15 Lines, Tubes, and Drains: 02/15/2016 12:15 Peripheral Lines: Hand Left 20 gauge Over the needle catheter Surgical Procedures: 02/16/16 15:31 CYSTOSCOPY LEFT STENT PLACEMENT [id number] Primary Surgeon: Diomedes Ross MD (Service: URO) I&O Record In Out Bal 02/15 24hr Tot [id number] 02/14 24hr Tot [id number] (no lab data in past 24 hours) Scheduled Meds (4): ceFAZolin (Ancef) 2 gm IVPB ABXQ8H 100 ml/hr [Last Rescheduled Dt/Tm: 02/13/16 23:59:00] [eMAR Schedule: (02/17/16) 07:59, 15:59] docusate (Colace 100 mg oral capsule) 100 mg PO BID [Last Rescheduled Dt/Tm: 02/16/16 20:35:00] [eMAR Schedule: (02/17/16) 09:00, 17:00] morphine Sulfate 2 mg IVP Q4H [Last Rescheduled Dt/Tm: 02/13/16 0:00:00] [eMAR Schedule: (02/17/16) 00:00, 04:00, 08:00, 12:00, 16:00] multivitamin, 1 tab PO Daily [eMAR Schedule: (02/17/16) 09:00] [Future Dose: 02/18/16 09:00] Unscheduled Meds: None PRN Meds (5): acetaminophen (Tylenol) 650 mg PO Q6H hyoscyamine (Levsin SL) 0.125 mg SL Q4H meperidine 25 mg IM Q6H pantoprazole (Protonix) 40 mg PO PRN sodium chloride (Saline Flush 0.9%) 10 ml IVP PRN One Time Meds: None Continuous Infusions (3): LVP solution with potassium 1,000 mL (D5W 1/2NS + KCL 20mEq/L 1000ml (Premix) 1 ,000 mL) 1,000 mL 75 ml/hr Lactated Ringers Injection IV 1,000 mL (LR IV 1,000 mL) 1,000 mL 125 ml/hr Lactated Ringers Injection IV 1,000 mL (LR IV 1,000 mL) 1,000 mL 40 ml/hr No results Physical Exam General: _ NAD HEENT: _ Normocephalic Cardiovascular: _ Regular rate and rhythm Respiratory: _ Clear to auscultation bilaterally Abdomen: _ Soft, Nontender, nondistended, gravid abdomen Extremities: _ No clubbing, cyanosis or edema. Integumentary: _ No ulcers. Neurologic: _ Nonfocal. NST: Category I TOCO: Rare contractions SVE: Deffered. Assessment: Admitted for pain control secondary to nephrolithiasis, now s/p stent placement , POD#1, stable. Plan: Continue maternal- monitoring status is reassuring. Discharge home today. Extracted from: Title: Urology Consultation Note Author: Rodolfo Naranjo MD Date: 02/14/16 Impression and Plan This is an 20 year old 25 week EGA female with left nephrolithiasis and flank pain, right moderate hydronephrosis, possible UTI. 1. I had a very extensive discussion with the patient and her mother about her treatment options including expectant management with oral pain control medications, ureteral stent placement, and nephrost mina tube placement. Risks and benefits of each approach was discussed with patient and family. All questions were answered. Mother was vehemently against having any intervention done at this time. I dis cussed that if patient begans to become febrile or septic, she may be required to have a ureteral stent or nephrostomy tube placed. 2. I will followup with patient tomorrow to see which option she would like to pursue. 3. UTI - continue IV ancef. Patient with low grade temperature this morning, however WBC normal. Will continue to monitor.
--- OUTSIDE RECORDS SUMMARY | 2018-08-25 06:37 | XMS REPORT | Summary of Care ---
:1995 Author Organization [facility] Address [address] [place], [place] [address]- Encounter HQ Shakirr_loreta(FIN) [id number] Date(s): 02/24/16 - 02/28/[address] [address]- Discharge Disposition: Home Attending Physician: Mari Chance MD Admitting Physician: Mari Chance MD Vital Signs Most recent to oldest 1 2 3 [Reference Range]: Height 160.02 cm 160.02 cm (02/24/16 4:46 AM) (02/24/16 4:41 AM) Temperature Oral [96.4-99.1 98.8 DegF 98.9 DegF 98.3 DegF DegF] (02/28/16 4:00 PM) (02/28/16 12:00 PM) (02/28/16 8:00 AM) Blood Pressure [90-140/60-90 122/55 mmHg 107/57 mmHg 98/51 mmHg mmHg] (02/28/16 4:00 PM) (02/28/16 12:00 PM) (02/28/16 8:00 AM) Respiratory Rate [14-20 BRMIN] 18 BRMIN 18 BRMIN 18 BRMIN (02/28/16 4:00 PM) (02/28/16 12:00 PM) (02/28/16 8:00 AM) Peripheral Pulse Rate [60-100 88 bpm 6 bpm 62 bpm bpm] (02/28/16 4:00 PM) *LOW* (02/28/16 8:00 AM) (02/28/16 12:00 PM) Weight 68.182 kg 68.182 kg (02/24/16 4:46 AM) (02/24/16 4:41 AM) Body Mass Index 26.63 m2 26.63 m2 (02/24/16 4:46 AM) (02/24/16 4:41 AM) Problem List Condition Effective Dates Status Health Status Informant Depression(Confirmed) Resolved Infectious disease in mother Active complicating , childbirth AND/OR puerperium(Confirmed) Kidney stone(Confirmed) 2014 Resolved (Confirmed) 02/13/16 Active Tobacco use(Confirmed) Active Allergies, Adverse Reactions, Alerts Substance Reaction Severity Status NKDA Active Medications Ancef 2 gm, 50 mL, Route: IVPB, Drug form: INJ, ABXQ8H, Dosing Weight 68.182, kg, Start date: 02/24/16 7:00:00, Duration: 30 day, Stop date: 03/25/16 0:00:00 Start Date: 02/24/16 Stop Date: 02/28/16 Status: DiscontinueddiphenhydrAMINE 12.5 mg, 0.25 mL, Route: IVP, Drug form: INJ, Q6H, Dosing Weight 68.182, kg, PRN Itching, Start date: 02/26/16 10:31:00 CDT, Duration: 30 day, Stop date: 09/02 10:30:00 CDT Notes: (Same as: Benadryl) Start Date: 02/26/16 Stop Date: 02/26/16 Status: DiscontinuedfentaNYL 25 microgram, 0.5 mL, Route: IVP, Drug form: INJ, Q5Min, Dosing Weight 68.182, kg, PRN Pain Score 4-6, Start date: 02/26/16 10:31:00 CDT, Duration: 4 doses or times, Stop date: Limited # of times Notes: (Same as: Sublimaze) Preservative free. Start Date: 02/26/16 Stop Date: 02/26/16 Status: Discontinuedflumazenil 0.2 mg, 2 mL, Route: IVP, Drug form: INJ, PRN, Dosing Weight 68.182, kg, PRN Benzodiazepine Reversal, Initial dose, Start date: 02/26/16 10:31:00 CDT, Duration: 30 day, Stop date: 03/27/16 10:30:00 CDT Notes: (Same as: Romazicon) Start Date: 02/26/16 Stop Date: 02/26/16 Status: DiscontinuedketOROLAC 30 mg, 1 mL, Route: IVP, Drug form: INJ, ONCE, Dosing Weight 68.182, kg, Start date: 02/26/16 10:31:00 CDT, Duration: 1 doses or times, Stop date: 02/26/16 10: 31:00 CDT Notes: (Same as:Toradol) IV bolus must be given >15 seconds. Give IM administration slowly and deeply into the muscle.Not for use > 4 days MEDICATION WASTE Product Size: 30 mgProduct Wasted: ___ mg Start Date: 02/26/16 Stop Date: 02/26/16 Status: DiscontinuedketOROLAC 30 mg/mL injectable solution 30 mg, 1 mL, Route: IV, Drug form: INJ, ONCE, Dosing Weight 68.182, kg, Start date: 02/25/16 13:52:00, Duration: 1 doses or times, Stop date: 02/25/16 13:52: 00 Notes: (Same as:Toradol) IV bolus must be given >15 seconds. Give IM administration slowly and deeply into the muscle.Not for use > 4 days MEDICATION WASTE Product Size: 30 mgProduct Wasted: ___ mg Start Date: 02/25/16 Stop Date: 02/25/16 Status: CompletedLactated Ringers IV 1,000 mL 1,000 mL, Rate: 40 ml/hr, Infuse over: 25 hr, Route: IV, Dosing Weight 68.182 kg , Total Volume: 1,000, Start date: 02/26/16 9:24:00 CDT, Duration: 30 day, Stop date: 03/27/16 9:23:00 CDT Start Date: 02/26/16 Stop Date: 02/28/16 Status: DiscontinuedLactated Ringers IV 1,000 mL 1,000 mL, Rate: 125 ml/hr, Infuse over: 8 hr, Route: IV, Dosing Weight 68.182 kg , Total Volume: 1,000, Start date: 02/24/16 5:00:00, Duration: 30 day, Stop date : 03/25/16 4:59:00 Start Date: 02/24/16 Stop Date: 02/28/16 Status: DiscontinuedLactated Ringers IV 1,000 mL 1,000 mL, Rate: 125 ml/hr, Infuse over: 8 hr, Route: IV, Dosing Weight 68.182 kg , Total Volume: 1,000, Start date: 02/24/16 5:56:00, Duration: 30 day, Stop date : 03/25/16 5:55:00 Start Date: 02/24/16 Stop Date: 02/28/16 Status: Discontinuedmorphine Sulfate 2 mg, 1 mL, Route: IVP, Drug form: INJ, Q4H, Dosing Weight 68.182, kg, PRN Other -See Comment, Priority: STAT, Start date: 02/24/16 6:01:00, Duration: 30 day, Stop date: 03/25/16 6:00:00 Notes: (Same as:MORPhine Sulfate) Start Date: 02/24/16 Stop Date: 02/28/16 Status: Discontinuedmorphine Sulfate 2 mg, 1 mL, Route: IVP, Drug form: INJ, ONCE, Dosing Weight 68.182, kg, Priority : STAT, Start date: 02/24/16 5:55:00, Stop date: 02/24/16 5:55:00 Notes: (Same as:MORPhine Sulfate) Start Date: 02/24/16 Stop Date: 02/24/16 Status: Completedmorphine Sulfate 2 mg, 1 mL, Route: IVP, Drug form: INJ, Q5Min, Dosing Weight 68.182, kg, PRN Pain Score 4-6, Start date: 02/26/16 10:40:00 CDT, Duration: 5 doses or times, Stop date: Limited # of times Notes: (Same as:MORPhine Sulfate) Start Date: 02/26/16 Stop Date: 02/26/16 Status: Discontinuedmultivitamin, 1 tab, Route: PO, Drug Form: TAB, Dosing Weight 68.182, kg, Daily, Start date: 02/24/16 9:00:00, Duration: 30 day, Stop date: 03/24/16 9:00:00 Start Date: 02/24/16 Stop Date: 02/28/16 Status: Discontinuednaloxone 0.04 mg, 0.1 mL, Route: IVP, Drug form: INJ, Q2MIN, Dosing Weight 68.182, kg, PRN Narcotic Reversal,Start date: 02/26/16 10:31:00 CDT, Duration: 8 doses or times, Stop date: Limited # of times Notes: Same as Narcan Start Date: 02/26/16 Stop Date: 02/26/16 Status: Discontinuednitrofurantoin macrocrystals 100 mg oral capsule ( Macrodantin) 100 mg=1 cap, PO, Daily, 0 Refill(s) Start Date: 02/24/16 Stop Date: 02/28/16 Status: DiscontinuedNorco 10/325 oral tablet 2 tab, Route: PO, Drug Form: TAB, Dosing Weight 68.182, kg, Q4H, PRN Pain Score 4-6, Start date: 02/25/16 13:52:00, Duration: 30 day, Stop date: 03/26/16 13:51: 00 Notes: Do not exceed 4gm/day of acetaminophen. (Same as: [place] 325/10) Start Date: 02/25/16 Stop Date: 02/28/16 Status: DiscontinuedNorco 10/325 oral tablet 1 tab, Route: PO, Drug Form: TAB, Dosing Weight 68.182, kg, Q4H, PRN Pain Score 1-3, Start date: 02/25/16 13:52:00, Duration: 30 day, Stop date: 03/26/16 13:51: 00 Notes: Do not exceed 4gm/day of acetaminophen. (Same as: [place] 325/10) Start Date: 02/25/16 Stop Date: 02/28/16 Status: DiscontinuedNorco 10/325 oral tablet 1 tab, PO, Q6H, PRN for pain, # 24 tab, 0 Refill(s) Start Date: 02/24/16 Stop Date: 02/28/16 Status: Discontinuedondansetron 4 mg, 2 mL, Route: IVP, Drug form: INJ, ONCE, Dosing Weight 68.182, kg, PRN Nausea & Vomiting, Start date: 02/26/16 10:31:00 CDT Notes: (Same as: Zofran) MEDICATION WASTE Product Size: 4 mgProduct Wasted: ___ mg Start Date: 02/26/16 Stop Date: 02/26/16 Status: CompletedPhenergan 12.5 mg, 50 mL, Route: IVPB, Drug form: SOLN, Q8H, Dosing Weight 68.182, kg, PRN Nausea, Priority: STAT, Start date: 02/24/16 6:01:00, Duration: 30 day, Stop date: 03/25/16 6:00:00 Start Date: 02/24/16 Stop Date: 02/28/16 Status: DiscontinuedSaline Flush 0.9% 10 ml, Route: IVP, Drug Form: INJ, Dosing Weight 68.182, kg, PRN, PRN Line Flush , Start date: 02/24/16 5:56:00, Duration: 30 day, Stop date: 03/25/16 5:55:00 Notes: Same as: BD Posiflush Sterile Start Date: 02/24/16 Stop Date: 02/28/16 Status: DiscontinuedTylenol with Codeine #3 oral tablet 1 tab, PO, Q6H, PRN Pain, # 60 tab, 0 Refill(s) Start Date: 02/24/16 Stop Date: 02/28/16 Status: Discontinued Results ELECTROLYTES Most recent to oldest [Reference Range]: 1 Sodium Lvl [135-145 mEq/L] 142 mEq/L (02/24/16 5:07 AM) Potassium Lvl [3.5-5.1 mEq/L] 3.5 mEq/L (02/24/16 5:07 AM) Chloride Lvl [95-109 mEq/L] 111 mEq/L *HI* (02/24/16 5:07 AM) CO2 [24-32 mEq/L] 22 mEq/L *LOW* (02/24/16 5:07 AM) AGAP [10.0-20.0 mEq/L] 12.5 mEq/L (02/24/16 5:07 AM) CHEM PANEL Most recent to oldest [Reference Range]: 1 Creatinine Lvl [0.50-1.40 mg/dL] 0.41 mg/dL *LOW* (02/24/16 5:07 AM) eGFR 151 mL/min/1.73m2 1 *NA* (02/24/16 5:07 AM) BUN [7-22 mg/dL] 9 mg/dL (02/24/16 5:07 AM) B/C Ratio [6-25] 22 (02/24/16 5:07 AM) Glucose Lvl [70-99 mg/dL] 92 mg/dL (02/24/16:07 AM) Total Protein [6.4-8.4 g/dL] 6.6 g/dL (02/24/16 5:07 AM) Albumin Lvl [3.5-5.0 g/dL] 3.0 g/dL *LOW* (02/24/16:07 AM) Globulin [2.0-4.0 g/dL] 3.6 g/dL (02/24/16 5:07 AM) A/G Ratio [0.7-1.6] 0.8 (02/24/16:07 AM) Calcium Lvl [8.5-10.5 mg/dL] 8.2 mg/dL *LOW* (02/24/16:07 AM) ALT [0-65 unit/L] 14 unit/L (02/24/16:07 AM) AST [0-37 unit/L] 11 unit/L (02/24/16:07 AM) Alk Phos [39-136 unit/L] 61 unit/L (02/24/16:07 AM) Bili Total [0.2-1.3 mg/dL] 0.4 mg/dL (02/24/16 5:07 AM) 1Result Comment: The eGFR is calculated [...] Range]: 1 UA Turbidity [Clear] Slight *ABN* (02/24/16 5:07 AM) UA Color [Yellow] Red *ABN* (02/24/16 5:07 AM) UA pH [5.0-8.0] 6.5 (02/24/16 5:07 AM) UA Spec Grav [<=1.030] 1.018 (02/24/16 5:07 AM) UA Glucose [Negative mg/dL] Negative mg/dL *NA* (02/24/16 5:07 AM) UA Blood [Negative] Large *ABN* (02/24/16 5:07 AM) UA Ketones [Negative mg/dL] Negative mg/dL *NA* (02/24/16 5:07 AM) UA Protein [Negative mg/dL] 70 mg/dL *ABN* (02/24/16 5:07 AM) UA Urobilinogen [0.1-1.0 mg/dL] <=1.0 mg/dL *NA* (02/24/16 5:07 AM) UA Bili [Negative] Negative *NA* (02/24/16 5:07 AM) UA Leuk Est [Negative] Large *ABN* (02/24/16 5:07 AM) UA Nitrite [Negative] Negative (02/24/16 5:07 AM) UA WBC [0-5 /HPF] 62 /HPF *HI* (02/24/16 5:07 AM) UA RBC [0-2 /HPF] >182 /HPF *HI* (02/24/16 5:07 AM) UA Sq Epi [Few /LPF] Moderate /LPF *ABN* (02/24/16 5:07 AM) UA Mucus [None Seen /LPF] Few /LPF *NA* (02/24/16 5:07 AM) HEMATOLOGY Most recent to oldest [Reference Range]: 1 WBC [3.7-10.4 K/CMM] 11.6 K/CMM *HI* (02/24/16 5:07 AM) RBC [4.20-5.40 M/CMM] 3.58 M/CMM *LOW* (02/24/16 5:07 AM) Hgb [12.0-16.0 g/dL] 11.3 g/dL *LOW* (02/24/16 5:07 AM) Hct [36.0-48.0 %] 33.8 % *LOW* (02/24/16 5:07 AM) MCV [80.0-98.0 fL] 94.4 fL (02/24/16 5:07 AM) MCH [27.0-31.0 pg] 31.6 pg *HI* (02/24/16 5:07 AM) MCHC [32.0-36.0 g/dL] 33.5 g/dL (02/24/16 5:07 AM) RDW [11.5-14.5 %] 13.2 % (02/24/16 5:07 AM) Platelet [133-450 K/CMM] 214 K/CMM (02/24/16 5:07 AM) MPV [7.4-10.4 fL] 7.4 fL (02/24/16 5:07 AM) Segs [45.0-75.0 %] 72.2 % (02/24/16 5:07 AM) Lymphocytes [20.0-40.0 %] 19.0 % *LOW* (02/24/16 5:07 AM) Monocytes [2.0-12.0 %] 6.4 % (02/24/16 5:07 AM) Eosinophils [0.0-4.0 %] 2.0 % (02/24/16 5:07 AM) Basophils [0.0-1.0 %] 0.4 % (02/24/16 5:07 AM) Segs-Bands # [1.5-8.1 K/CMM] 8.3 K/CMM *HI* (02/24/16 5:07 AM) Lymphocytes # [1.0-5.5 K/CMM] 2.2 K/CMM (02/24/16 5:07 AM) Monocytes # [0.0-0.8 K/CMM] 0.7 K/CMM (02/24/16 5:07 AM) Eosinophils # [0.0-0.5 K/CMM] 0.2 K/CMM (02/24/16 5:07 AM) Basophils # [0.0-0.2 K/CMM] 0.1 K/CMM (02/24/16 5:07 AM) PT [12.0-14.7 seconds] 14.6 seconds (02/24/16 2:14 PM) INR [0.85-1.17] 1.11 (02/24/16 2:14 PM) PTT [22.9-35.8 seconds] 29.9 seconds (02/24/16 2:14 PM) Immunizations Vaccine Date Refusal Reason influenza virus vaccine, inactivated 02/14/16 Procedures Procedure Date Related Diagnosis Body Site Stent placement Social History Social History Type Response Smoking Status Current every day smoker; Lives with someone who smokes; Cigarette Smoking Last 365 Days Yes; Reg Smoking Cessation Counseling No Assessment and Plan Extracted from: Title: pt now declines neprhrostomy tube Author: Mari Chance MD Date: 02/28/16 Progress Daily [facility] Completed: Feb, 14:50 by Mari Chance MD RM: [id number] - 01, TW WN21 CELESTINE CAR 20y (: 1995) F Attending: Mari Chance MD 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 Reason for Admission: RENAL STONES IN Working DRG: Urinary stones w/o esw lithotripsy w/o USP Code status: None Specified=FULL CODE Current diet: regular Isolation: None Documented Allergies: NKDA SUBJECTIVE since stint out still has dull pain in back not as bad after family reviewed risks and benefits of tube with urology they have now decided not to proceed OBJECTIVE Chest CTA, CV RRR, Abdomen soft gravid MINIMAL CVA tenderness, good movement no bleeding ASSESSMENT & EXAM with incidental renal stones and hydronephrosis PLAN & TREATMENT will dc home on po pain mgmt , Has MFM appt on with Dr Galvan and will set up primary OB with Dr Brunson DIAGNOSES & PROBLEMS Ready for Discharge (Yes/No)? Reyes still necessary (Yes/No): Line still necessary (Yes/No): (no lab data in past 24 hours) Vitals Tmp(F) Pulse BP RR SpO2 FIO2 02/27 12:00 98.9 6 107/57 18 99 --- 02/27 08:00 98.3 62 98/51 18 99 --- 02/27 05:00 98.1 58 96/54 18 --- --- 02/27 00:00 99.0 57 106/76 20 --- --- 02/26 15:43 99.7 68 97/54 16 95 --- 24 Hr Tmax: 99.7F (37.61c) at 02/26 15:43 Vital Signs are the last 5 in the past 48 hours. Date Wt(kg) Wt(lb) Ht(cm) Ht(in) Method 02/23 (initial) 68.18 150.00 Estimated 02/23 160.02 63.00 Stated I&O Record In Out Bal 02/27 24hr Tot 101 600 -499 02/26 24hr Tot 1015 1600 -585 Medications (10) Active Scheduled Meds (2): 02/24/16 ceFAZolin (Ancef) 2 gm IVPB ABXQ8H 100 ml/hr 02/24/16 multivitamin, 1 tab PO Daily Unscheduled Meds: None PRN Meds (5): 02/25/16 acetaminophen-hydrocodone ([place] 10/325 oral tablet) 1 tab PO Q4H 02/25/16 acetaminophen-hydrocodone ([place] 10/325 oral tablet) 2 tab PO Q4H 02/24/16 morphine Sulfate 2 mg IVP Q4H 02/24/16 promethazine (Phenergan) 12.5 mg IVPB Q8H 300 ml/hr 02/24/16 sodium chloride (Saline Flush 0.9%) 10 ml IVP PRN One Time Meds: None Continuous Infusions (3): 02/24/16 Lactated Ringers Injection IV 1,000 mL (Lactated Ringers IV 1,000 mL) 1,000 mL 125 ml/hr 02/24/16 Lactated Ringers Injection IV 1,000 mL (Lactated Ringers IV 1,000 mL) 1,000 mL 125 ml/hr 02/26/16 Lactated Ringers Injection IV 1,000 mL (Lactated Ringers IV 1,000 mL) 1,000 mL 40 ml/hr Addendum by Mari Chance MD on I had to sign out before note complete due to OB emergency 02/28/2016 15:20 Pt is 27 6/7 weeks and ready to discharge home with po pain meds and has appts as above Extracted from: Title: Maternal- Medicine Author: Alyssa Galvan MD Date: 02/25/16 Consultation Impression and Plan 20 yo G1 at 27w4d followed for suspected nephrolithiasis, readmitted with left flank pain and indwelling stent 1) : We discussed that her back pain could be due to infection, nephrolithiasis, indwelling stent or physiologic hcanges of . In light of no improvement, it may be reasonable to remove the st ent entirely as the previously noted possible stones were small and this intervention has not helped. We could then proceed with percutaneous nephrostomy as needed if pain is not improved. We discussed that she needs 14 days of antibiotics as this is suspected renal infection ( although low leverl of bacteria) and then should be on suppression until delivery -we discussed the risks of IR nephrostomy tube placement, which are overall not much higher than in the non-pregnanct state. This can increase the risk of perinephric bleeding and pain, but generally do es not lead to in the absence of disseminated infection. We discussed the risks of local anesthesia and sedation if indicated 2) well being: recommend qshift NST. Would have patient follow up for growth US and testing after discharge, which I can arrange with my office -discussed risks of prolonged narcotics including abstinence symdrome 3) neurO: Discussed 1-3 doses of Toradol for pain as this is safe in small quantities. Recommend attempting [place] in place of morhoine as the patient has been using high doses frequently and complains of headache. Will order bowel regimen as well We will continue to follow patient. Please call with questions or concerns. Recommend removal of ureteral stent prior to attempting nephrostomy as neither may be needed at this point and seem to be contributing to pain In total I spent 40 minutes of floor time on this consultation, of which >50% was in counseling and coordination of care.
--- OUTSIDE RECORDS SUMMARY | 2018-08-25 06:37 | XMS REPORT | Summary of Care ---
:1995 Author Organization [facility] Address [address] [place], [place] [address]- Encounter HQ Sacha(LORI) [id number] Date(s): 03/11/16 - 03/12/[address] [address]- Discharge Diagnosis: Abdominal pain affecting , antepartum Discharge Disposition: Home Attending Physician: Marily Canales MD Admitting Physician: Marily Canales MD Vital Signs Most recent to oldest 1 2 3 [Reference Range]: Height 160.02 cm 160.02 cm 160.02 cm (03/11/16 10:20 PM) (03/11/16 10:19 PM) (03/11/16 7:33 PM) Temperature Oral [96.4-99.1 98.2 DegF 98.2 DegF 98.1 DegF DegF] (03/12/16 12:45 AM) (03/11/16 10:20 PM) (03/11/16 9:28 PM) Blood Pressure [90-140/60-90 88/51 mmHg 88/47 mmHg 113/64 mmHg mmHg] *LOW* *LOW* (03/12/16 12:45 AM) (03/12/16 8:02 AM) (03/12/16 4:40 AM) Respiratory Rate [14-20 18 BRMIN 18 BRMIN 18 BRMIN BRMIN] (03/12/16 8:02 AM) (03/12/16 4:40 AM) (03/12/16 12:45 AM) Peripheral Pulse Rate 73 bpm 65 bpm 78 bpm [60-100 bpm] (03/12/16 8:02 AM) (03/12/16 4:40 AM) (03/12/16 12:45 AM) Weight 62.727 kg 62.727 kg 68.182 kg (03/11/16 10:20 PM) (03/11/16 10:19 PM) (03/11/16 7:33 PM) Body Mass Index 24.5 m2 24.5 m2 26.63 m2 (03/11/16 10:20 PM) (03/11/16 10:19 PM) (03/11/16 7:33 PM) Problem List Condition Effective Dates Status Health Status Informant Depression(Confirmed) Resolved Infectious disease in mother Active complicating , childbirth AND/OR puerperium(Confirmed) Kidney stone(Confirmed) 2014 Resolved (Confirmed) 02/13/16 Active Tobacco use(Confirmed) Active Allergies, Adverse Reactions, Alerts Substance Reaction Severity Status NKDA Active Medications acetaminophen 650 mg, 2 tab, Route: PO, Drug form: TAB, Q4H, Dosing Weight 68.182, kg, PRN For Temp > 100.4 F, Start date: 03/11/16 21:12:00 CDT, Duration: 30 day, Stop date: 04/10/16 21:11:00 CDT Notes: Do not exceed 4 gm/day. (Same as: Tylenol) Start Date: 03/11/16 Stop Date: 03/12/16 Status: Discontinuedacetaminophen-hydrocodone 325 mg-5 mg oral tablet 1 tab, Route: PO, Drug Form: TAB, Dosing Weight 68.182, kg, Q4H, PRN Pain Score 1-3, Start date: 03/11/16 21:12:00 CDT, Duration: 30 day, Stop date: 04/10/16 21 :11:00 CDT Notes: (Same as: Knickerbocker 325/5) Do not exceed 4gm/day of acetaminophen. Start Date: 03/11/16 Stop Date: 03/12/16 Status: Discontinuedacetaminophen-hydrocodone 325 mg-5 mg oral tablet 2 tab, Route: PO, Drug Form: TAB, Dosing Weight 68.182, kg, Q4H, PRN Pain Score 4-6, Start date: 03/11/16 21:12:00 CDT, Duration: 30 day, Stop date: 04/10/16 21 :11:00 CDT Notes: (Same as: Knickerbocker 325/5) Do not exceed 4gm/day of acetaminophen. Start Date: 03/11/16 Stop Date: 03/12/16 Status: Discontinuedbisacodyl 10 mg, 1 supp, Route: ID, Drug form: SUPP, PRN, Dosing Weight 68.182, kg, PRN Gas, Start date: 03/11/16 21:12:00 CDT, Duration: 30 day, Stop date: 04/10/16 21 :11:00 CDT Notes: (Same As: Dulcolax, Bisco-Lax) Start Date: 03/11/16 Stop Date: 03/12/16 Status: DiscontinuedcefTRIAXone + Sodium Chloride 0.9% IV 100 mL 1 gm, Route: IVPB, Drug form: PDR/INJ, [id number], Dosing Weight 68.182, kg, Start date: 03/11/16 22:00:00 CDT, Duration: 30 day, Stop date: 04/09/16 22:00:00 CDT Notes: (Same As: Rocephin).Use with 100 mL NS and infuse over 30 min MEDICATION WASTE Product Size: 1000 mgProduct Wasted: ___ mg Start Date: 03/11/16 Stop Date: 03/12/16 Status: DiscontinuedLactated Ringers Injection IV 1,000 mL 1,000 mL, Rate: 125 ml/hr, Infuse over: 8 hr, Route: IV, Dosing Weight 68.182 kg , Total Volume: 1,000, Start date: 03/11/16 19:57:00 CDT, Duration: 30 day, Stop date: 04/10/16 19:56:00 CDT Start Date: 03/11/16 Stop Date: 03/12/16 Status: DiscontinuedLactated Ringers IV 1,000 mL 1,000 mL, Rate: 125 ml/hr, Infuse over: 8 hr, Route: IV, Dosing Weight 68.182 kg , Total Volume: 1,000, Start date: 03/11/16 21:12:00 CDT, Duration: 30 day, Stop date: 04/10/16 21:11:00 CDT Start Date: 03/11/16 Stop Date: 03/12/16 Status: DiscontinuedMacrobid 100 mg, PO, BID, # 14 cap, 0 Refill(s) Start Date: 03/11/16 Stop Date: 03/12/16 Status: Discontinuedmorphine Sulfate 2 mg, 1 mL, Route: IV, Drug form: INJ, ONCE, Dosing Weight 68.182, kg, Priority : STAT, Start date: 03/11/16 19:57:00 CDT, Stop date: 03/11/16 19:57:00 CDT Notes: (Same as:MORPhine Sulfate) Start Date: 03/11/16 Stop Date: 03/11/16 Status: Completedondansetron 4 mg, 2 mL, Route: IVP, Drug form: INJ, ONCE, Dosing Weight 68.182, kg, Priority : STAT, Start date: 03/11/16 19:57:00 CDT, Stop date: 03/11/16 19:57:00 CDT Notes: (Same as: April) MEDICATION WASTE Product Size: 4 mgProduct Wasted: ___ mg Start Date: 03/11/16 Stop Date: 03/11/16 Status: CompletedPyridium 200 mg, 2 tab, Route: PO, Drug form: TAB, ONCE, Dosing Weight 68.182, kg, Priority: STAT, Start date: 03/11/16 20:26:00 CDT, Stop date: 03/11/16 20:26:00 CDT Notes: Give with meals.(Same as: Pyridium) Start Date: 03/11/16 Stop Date: 03/11/16 Status: CompletedPyridium 200 mg, 2 tab, Route: PO, Drug form: TAB, TID-After Meals, Dosing Weight 68.182 , kg, Start date: 03/12/16 8:30:00 CDT, Duration: 30 day, Stop date: 04/10/16 17 :30:00 CDT Notes: Give with meals.(Same as: Pyridium) Start Date: 03/12/16 Stop Date: 03/12/16 Status: Discontinuedsimethicone 160 mg, 2 tab, Route: PO, Drug form: CHEWTAB, Q8H, Dosing Weight 68.182, kg, PRN Gas, Start date: 03/11/16 21:12:00 CDT, Duration: 30 day, Stop date: 21:11:00 CDT Notes: (Same as: Mylicon) Start Date: 03/11/16 Stop Date: 03/12/16 Status: DiscontinuedZofran 4 mg, 2 mL, Route: IVP, Drug form: INJ, ONCE, Dosing Weight 62.727, kg, Start date: 03/12/16 9:16:00CDT, Stop date: 03/12/16 9:16:00 CDT Notes: (Same as: Zofran) MEDICATION WASTE Product Size: 4 mgProduct Wasted: ___ mg Start Date: 03/12/16 Stop Date: 03/12/16 Status: Completedzolpidem 5 mg, 1 tab, Route: PO, Drug form: TAB, Bedtime, Dosing Weight 68.182, kg, PRN Insomnia, Start date:03/11/16 21:12:00 CDT, Duration: 30 day, Stop date: 21:11:00 CDT Notes: (Same As: Yomaira) Start Date: 03/11/16 Stop Date: 03/12/16 Status: Discontinued Results ELECTROLYTES Most recent to oldest [Reference Range]: 1 Sodium Lvl [135-145 mEq/L] 141 mEq/L (03/11/16 8:08 PM) Potassium Lvl [3.5-5.1 mEq/L] 3.3 mEq/L *LOW* (03/11/16 8:08 PM) Chloride Lvl [95-109 mEq/L] 110 mEq/L *HI* (03/11/16 8:08 PM) CO2 [24-32 mEq/L] 23 mEq/L *LOW* (03/11/16 8:08 PM) AGAP [10.0-20.0 mEq/L] 11.3 mEq/L (03/11/16 8:08 PM) CHEM PANEL Most recent to oldest [Reference Range]: 1 Creatinine Lvl [0.50-1.40 mg/dL] 0.43 mg/dL *LOW* (03/11/16 8:08 PM) eGFR 149 mL/min/1.73m2 1 *NA* (03/11/16 8:08 PM) BUN [7-22 mg/dL] 6 mg/dL *LOW* (03/11/16 8:08 PM) B/C Ratio [6-25] 14 (4/24/16 8:08 PM) Glucose Lvl [70-99 mg/dL] 80 mg/dL (03/11/16 8:08 PM) Total Protein [6.4-8.4 g/dL] 6.7 g/dL (03/11/16 8:08 PM) Albumin Lvl [3.5-5.0 g/dL] 3.2 g/dL *LOW* (03/11/16 8:08 PM) Globulin [2.0-4.0 g/dL] 3.5 g/dL (03/11/16 8:08 PM) A/G Ratio [0.7-1.6] 0.9 (03/11/16 8:08 PM) Calcium Lvl [8.5-10.5 mg/dL] 8.6 mg/dL (03/11/16 8:08 PM) ALT [0-65 unit/L] 14 unit/L (03/11/16 8:08 PM) AST [0-37 unit/L] 10 unit/L (03/11/16 8:08 PM) Alk Phos [39-136 unit/L] 77 unit/L (03/11/16 8:08 PM) Bili Total [0.2-1.3 mg/dL] 0.2 mg/dL (03/11/16 8:08 PM) 1Result Comment: The eGFR is calculated [...] Range]: 1 UA Turbidity [Clear] Slight *ABN* (03/11/16 8:08 PM) UA Color [Yellow] Yellow *NA* (03/11/16 8:08 PM) UA pH [5.0-8.0] 6.5 (03/11/16 8:08 PM) UA Spec Grav [<=1.030] 1.010 (03/11/16 8:08 PM) UA Glucose [Negative mg/dL] Negative mg/dL *NA* (03/11/16 8:08 PM) UA Blood [Negative] Small *ABN* (03/11/16 8:08 PM) UA Ketones [Negative mg/dL] Negative mg/dL *NA* (03/11/16 8:08 PM) UA Protein [Negative mg/dL] 10 mg/dL *ABN* (03/11/16 8:08 PM) UA Urobilinogen [0.1-1.0 mg/dL] <=1.0 mg/dL *NA* (03/11/16 8:08 PM) UA Bili [Negative] Negative *NA* (03/11/16 8:08 PM) UA Leuk Est [Negative] Large *ABN* (03/11/16 8:08 PM) UA Nitrite [Negative] Negative (03/11/16 8:08 PM) UA WBC [0-5 /HPF] 7 /HPF *HI* (03/11/16 8:08 PM) UA RBC [0-2 /HPF] 9 /HPF *HI* (03/11/16 8:08 PM) UA Bacteria [None Seen /HPF] Occasional /HPF *NA* (03/11/16 8:08 PM) UA Sq Epi [Few /LPF] Many /LPF *ABN* (03/11/16 8:08 PM) UA Amorph Lisa [None Seen /HPF] Occasional /HPF *NA* (03/11/16 8:08 PM) UA Mucus [None Seen /LPF] Few /LPF *NA* (03/11/16 8:08 PM) HEMATOLOGY Most recent to oldest [Reference Range]: 1 WBC [3.7-10.4 K/CMM] 12.9 K/CMM *HI* (03/11/16 8:08 PM) RBC [4.20-5.40 M/CMM] 3.63 M/CMM *LOW* (03/11/16 8:08 PM) Hgb [12.0-16.0 g/dL] 11.4 g/dL *LOW* (03/11/16 8:08 PM) Hct [36.0-48.0 %] 33.9 % *LOW* (03/11/16 8:08 PM) MCV [80.0-98.0 fL] 93.5 fL (03/11/16 8:08 PM) MCH [27.0-31.0 pg] 31.3 pg *HI* (03/11/16 8:08 PM) MCHC [32.0-36.0 g/dL] 33.5 g/dL (03/11/16 8:08 PM) RDW [11.5-14.5 %] 13.0 % (03/11/16 8:08 PM) Platelet [133-450 K/CMM] 229 K/CMM (03/11/16 8:08 PM) MPV [7.4-10.4 fL] 7.4 fL (03/11/16 8:08 PM) Segs [45.0-75.0 %] 76.8 % *HI* (03/11/16 8:08 PM) Lymphocytes [20.0-40.0 %] 16.4 % *LOW* (03/11/16 8:08 PM) Monocytes [2.0-12.0 %] 6.0 % (03/11/16 8:08 PM) Eosinophils [0.0-4.0 %] 0.5 % (03/11/16 8:08 PM) Basophils [0.0-1.0 %] 0.3 % (03/11/16 8:08 PM) Segs-Bands # [1.5-8.1 K/CMM] 9.9 K/CMM *HI* (03/11/16 8:08 PM) Lymphocytes # [1.0-5.5 K/CMM] 2.1 K/CMM (03/11/16 8:08 PM) Monocytes # [0.0-0.8 K/CMM] 0.8 K/CMM (03/11/16 8:08 PM) Eosinophils # [0.0-0.5 K/CMM] 0.1 K/CMM (03/11/16 8:08 PM) Immunizations Vaccine Date Refusal Reason influenza [...]
--- OUTSIDE RECORDS SUMMARY | 2018-08-25 06:38 | XMS REPORT | Summary of Care ---
:1995 Author Organization [facility] Address [address] [place] [id number]- Encounter HQ Mike_loreta(FIN) [id number] Date(s): 01/01/17 - 01/01/[address] [address]- Discharge Diagnosis: Back pain Discharge Disposition: Home or Self Care Attending Physician: Jose L Amor MD Vital Signs Most recent to oldest 1 2 3 [Reference Range]: Height 152.4 cm (01/01/17 4:10 PM) Blood Pressure [90-140/60-90 104/69 mmHg 110/70 mmHg 113/70 mmHg mmHg] (01/01/17 8:01 PM) (01/01/17 6:45 PM) (01/01/17 4:10 PM) Respiratory Rate [14-20 BRMIN] 18 BRMIN 18 BRMIN 20 BRMIN (01/01/17 8:01 PM) (01/01/17 6:45 PM) (01/01/17 4:10 PM) Peripheral Pulse Rate [60-100 82 bpm 100 bpm 105 bpm bpm] (01/01/17 8:01 PM) (01/01/17 6:45 PM) *HI* (01/01/17 4:10 PM) Weight 66.364 kg (01/01/17 4:10 PM) Body Mass Index 28.57 m2 (01/01/17 4:10 PM) Problem List Condition Effective Dates Status Health Status Informant Depression(Confirmed) Resolved Infectious disease in mother Active complicating , childbirth AND/OR puerperium(Confirmed) Kidney stone(Confirmed) 2014 Resolved (Confirmed) 02/13/16 - 06/23/16 8:46 AM Resolved Tobacco use(Confirmed) Active Allergies, Adverse Reactions, Alerts Substance Reaction Severity Status acetaminophen1 Active 1itching Medications NS (Bolus) IV 1,000 mL, 1,000 ml/hr, Infuse Over: 1 hr, Route: IV, 1,000, Drug form: INJ, ONCE , Priority: STAT, Dosing Weight 66.364 kg, Start date: 01/01/17 16:19:00 [employer]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, Duration: 1 doses or times, Stop date: 01/01/17 16:19:00 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 Start Date: 01/01/17 Stop Date: 01/01/17 Status: Completed Results BLOOD BANK RESULTS Most recent to oldest [Reference Range]: 1 ABO/Rh B POS *Unknown* (01/01/17 6:38 PM) Antibody Scrn Negative (01/01/17 6:38 PM) ELECTROLYTES Most recent to oldest [Reference Range]: 1 Sodium Lvl [135-145 mEq/L] 138 mEq/L (01/01/17 6:21 PM) Potassium Lvl [3.5-5.1 mEq/L] 3.3 mEq/L *LOW* (01/01/17 6:21 PM) Chloride Lvl [95-109 mEq/L] 107 mEq/L (01/01/17 6:21 PM) CO2 [24-32 mEq/L] 25 mEq/L (01/01/17 6:21 PM) AGAP [10.0-20.0 mEq/L] 9.3 mEq/L *LOW* (01/01/17 6:21 PM) CHEM PANEL Most recent to oldest [Reference Range]: 1 Creatinine Lvl [0.50-1.40 mg/dL] 0.49 mg/dL *LOW* (01/01/17 6:21 PM) eGFR 142 mL/min/1.73m2 1 *NA* (01/01/17 6:21 PM) BUN [7-22 mg/dL] 2 mg/dL *LOW* (01/01/17 6:21 PM) B/C Ratio [6-25] 4 *LOW* (01/01/17 6:21 PM) Glucose Lvl [70-99 mg/dL] 90 mg/dL (01/01/17 6:21 PM) Total Protein [6.4-8.4 g/dL] 7.3 g/dL (01/01/17 6:21 PM) Albumin Lvl [3.5-5.0 g/dL] 3.5 g/dL (01/01/17 6:21 PM) Globulin [2.7-4.2 g/dL] 3.8 g/dL (01/01/17 6:21 PM) A/G Ratio [0.7-1.6] 0.9 (01/01/17 6:21 PM) Calcium Lvl [8.5-10.5 mg/dL] 8.6 mg/dL (01/01/17 6:21 PM) ALT [0-65 unit/L] 16 unit/L (01/01/17 6:21 PM) AST [0-37 unit/L] 13 unit/L (01/01/17 6:21 PM) Alk Phos [39-136 unit/L] 70 unit/L (01/01/17 6:21 PM) Bili Total [0.2-1.3 mg/dL] 0.2 mg/dL (01/01/17 6:21 PM) Lipase Lvl [73-393 unit/L] 121 unit/L (01/01/17 6:21 PM) 1Result Comment: The eGFR is [...] Most recent to oldest [Reference Range]: 1 [place] [address] mIU/mL *NA* (01/01/17 6:21 PM) URINE AND STOOL Most recent to oldest [Reference Range]: 1 UA Turbidity [Clear] Slight *ABN* (01/01/17 6:10 PM) UA Color [Yellow] Light Yellow *NA* (01/01/17 6:10 PM) UA pH [5.0-8.0] 7.0 (01/01/17 6:10 PM) UA Spec Grav [<=1.030] 1.004 (01/01/17 6:10 PM) UA Glucose [Negative mg/dL] Negative mg/dL *NA* (01/01/17 6:10 PM) UA Blood [Negative] Negative (01/01/17 6:10 PM) UA Ketones [Negative mg/dL] Negative mg/dL *NA* (01/01/17 6:10 PM) UA Protein [Negative mg/dL] Negative mg/dL (01/01/17 6:10 PM) UA Urobilinogen [0.1-1.0 mg/dL] <=1.0 mg/dL *NA* (01/01/17 6:10 PM) UA Bili [Negative] Negative *NA* (01/01/17 6:10 PM) UA Leuk Est [Negative] Trace *ABN* (01/01/17 6:10 PM) UA Nitrite [Negative] Negative (01/01/17 6:10 PM) UA WBC [0-5 /HPF] 4 /HPF (01/01/17 6:10 PM) UA RBC [0-2 /HPF] 2 /HPF (01/01/17 6:10 PM) UA Sq Epi [Few /LPF] Many /LPF *ABN* (01/01/17 6:10 PM) UA Amorph Lisa [None Seen /HPF] Occasional /HPF *NA* (01/01/17 6:10 PM) HEMATOLOGY Most recent to oldest [Reference Range]: 1 WBC [3.7-10.4 K/CMM] 7.1 K/CMM (01/01/17 6:21 PM) RBC [4.20-5.40 M/CMM] 3.88 M/CMM *LOW* (01/01/17 6:21 PM) Hgb [12.0-16.0 g/dL] 11.6 g/dL *LOW* (01/01/17 6:21 PM) Hct [36.0-48.0 %] 34.4 % *LOW* (01/01/17 6:21 PM) MCV [80.0-98.0 fL] 88.6 fL (01/01/17 6:21 PM) MCH [27.0-31.0 pg] 30.0 pg (01/01/17 6:21 PM) MCHC [32.0-36.0 g/dL] 33.9 g/dL (01/01/17 6:21 PM) RDW [11.5-14.5 %] 15.3 % *HI* (01/01/17 6:21 PM) Platelet [133-450 K/CMM] 190 K/CMM (01/01/17 6:21 PM) MPV [7.4-10.4 fL] 6.9 fL *LOW* (01/01/17 6:21 PM) Segs [45.0-75.0 %] 63.1 % (01/01/17 6:21 PM) Lymphocytes [20.0-40.0 %] 28.3 % (01/01/17 6:21 PM) Monocytes [2.0-12.0 %] 5.2 % (01/01/17 6:21 PM) Eosinophils [0.0-4.0 %] 2.9 % (01/01/17 6:21 PM) Basophils [0.0-1.0 %] 0.5 % (01/01/17 6:21 PM) Segs-Bands # [1.5-8.1 K/CMM] 4.5 K/CMM (01/01/17 6:21 PM) Lymphocytes # [1.0-5.5 K/CMM] 2.0 K/CMM (01/01/17 6:21 PM) Monocytes # [0.0-0.8 K/CMM] 0.4 K/CMM (01/01/17 6:21 PM) Eosinophils # [0.0-0.5 K/CMM] 0.2 K/CMM (01/01/17 6:21 PM) Immunizations Given and Recorded Vaccine Date Status Refusal Reason influenza virus vaccine, inactivated 02/14/16 Given Procedures Procedure Date Related Diagnosis Body Site CS - Caesarean section 05/07/16 Stent placement Social History Social History Type Response Substance Abuse Use: None. Alcohol Past Smoking Status Current every day smoker; Type: [...]
--- OUTSIDE RECORDS SUMMARY | 2018-08-25 06:38 | XMS REPORT | Summary of Care ---
:1995 Author Organization [facility] Address [address] [place] [id number]- Encounter HQ Shakirr_loreta(FIN) [id number] Date(s): 12/02/16 - 12/04/[address] [address]- Discharge Disposition: Home or Self Care Attending Physician: Isaías Guaman MD Admitting Physician: Isaías Guaman MD Vital Signs Most recent to oldest 1 2 3 [Reference Range]: Height 160.02 cm (12/02/16 6:26 PM) Temperature Oral [96.4-99.1 98.6 DegF 98.9 DegF 97.9 DegF DegF] (12/04/16 12:00 PM) (12/04/16 8:00 AM) (12/02/16 6:26 PM) Blood Pressure [90-140/60-90 110/56 mmHg 99/61 mmHg 106/52 mmHg mmHg] (12/04/16 12:00 PM) (12/04/16 8:00 AM) (12/04/16 4:25 AM) Respiratory Rate [14-20 BRMIN] 18 BRMIN 18 BRMIN 18 BRMIN (12/04/16 12:00 PM) (12/04/16 8:00 AM) (12/04/16 4:25 AM) Peripheral Pulse Rate [60-100 72 bpm 93 bpm 78 bpm bpm] (12/04/16 12:00 PM) (12/04/16 8:00 AM) (12/04/16 4:25 AM) Weight 63.636 kg 63.835 kg (12/02/16 11:13 PM) (12/02/16 6:26 PM) Body Mass Index 24.93 m2 (12/02/16 6:26 PM) Problem List Condition Effective Dates Status Health Status Informant Depression(Confirmed) Resolved Infectious disease in mother Active complicating , childbirth AND/OR puerperium(Confirmed) Kidney stone(Confirmed) 2014 Resolved (Confirmed) 02/13/16 - 06/23/16 8:46 AM Resolved Tobacco use(Confirmed) Active Allergies, Adverse Reactions, Alerts Substance Reaction Severity Status acetaminophen1 Active 1itching Medications cefTRIAXone + sodium chloride 0.9% INJ 100 mL 1 gm, Route: IVPB, [id number], Dosing Weight 63.636, kg, Start date: 12/03/16 12:00 :00 REDEYE GUNNER, Duration: 30 day, Stop date: 01/01/17 12:00:00 REDEYE GUNNER Notes: (Same As: Rocephin).Use with 100 mL NS and infuse over 30 min MEDICATION WASTE Product Size: 1000 mgProduct Wasted: ___ mg Start Date: 12/03/16 Stop Date: 12/04/16 Status: DiscontinuedKeflex 500 mg oral capsule 500 mg=1 cap, PO, TID, X 5 day, # 15 cap, 0 Refill(s) Start Date: 12/04/16 Stop Date: 12/09/16 Status: Orderedmagnesium sulfate 2 gm, 50 mL, Route: IVPB, Drug form: INJ, ONCE, Start date: 12/03/16 9:30:00 REDEYE GUNNER , Stop date: 12/03/16 9:30:00 REDEYE GUNNER Notes: WASTE: F/P - Sink; E - Municipal Trash Bin Start Date: 12/03/16 Stop Date: 12/03/16 Status: Completedmagnesium sulfate + sodium chloride 0.9% INJ 100 mL 2 gm, 4 mL, Route: IVPB, ONCE, Dosing Weight 63.636, kg, Start date: 12/03/16 7: 47:00 REDEYE GUNNER, Stop date: 12/03/16 7:47:00 REDEYE GUNNER Notes: (Same as: MgSO4)WASTE: F/P - Sink; E - Municipal Trash Bin MEDICATION WASTE Product Size: 1000 mgProduct Wasted: ___ mg Start Date: 12/03/16 Stop Date: 12/03/16 Status: Completedmorphine Sulfate 2 mg, 1 mL, Route: IVP, Drug form: INJ, Q4H, Dosing Weight 63.636, kg, PRN Pain Score 7-10, Start date: 12/03/16 0:30:00 REDEYE GUNNER, Duration: 30 day, Stop date: 01/02 0:29:00 REDEYE GUNNER Notes: (Same as:MORPhine Sulfate) Start Date: 12/03/16 Stop Date: 12/04/16 Status: DiscontinuedNS (Bolus) IV 1,000 mL, 1,000 ml/hr, Infuse Over: 1 hr, Route: IV, 1,000, Drug form: INJ, ONCE , Priority: STAT, Dosing Weight 63.636 kg, Start date: 12/03/16 0:31:00 REDEYE GUNNER, Duration: 1 doses or times, Stop date: 12/03/16 0:31:00 REDEYE GUNNER Start Date: 12/03/16 Stop Date: 12/03/16 Status: CompletedNS (Bolus) IV 1,000 mL, 1,000 ml/hr, Infuse Over: 1 hr, Route: IV, 1,000, Drug form: INJ, ONCE , Priority: STAT, Dosing Weight 63.835 kg, Start date: 12/02/16 21:00:00 REDEYE GUNNER, Duration: 1 doses or times, Stop date: 12/02/16 21:00:00 REDEYE GUNNER Start Date: 12/02/16 Stop Date: 12/02/16 Status: CompletedNS (Bolus) IV 1,000 mL, 1,000 ml/hr, Infuse Over: 1 hr, Route: IV, 1,000, Drug form: INJ, ONCE , Priority: STAT, Dosing Weight 63.835 kg, Start date: 12/02/16 19:28:00 REDEYE GUNNER, Duration: 1 doses or times, Stop date: 12/02/16 19:28:00 REDEYE GUNNER Start Date: 12/02/16 Stop Date: 12/02/16 Status: CompletedPhenergan 12.5 mg, Route: IVPB, ONCE, Dosing Weight 63.835, kg, Priority: STAT, Start date : 12/02/16 20:40:00 REDEYE GUNNER, Stop date: 12/02/16 20:40:00 REDEYE GUNNER Start Date: 12/02/16 Stop Date: 12/02/16 Status: Completedpotassium chloride 10 mEq, 100 mL, Route: IVPB, Drug form: INJ, Q1H, Start date: 12/03/16 9:00:00 REDEYE GUNNER, Duration: 4 doses or times, Stop date: 12/03/16 12:00:00 REDEYE GUNNER Notes: Infuse at a rate of 10 mEq/hr.(Same as: KCL) Start Date: 12/03/16 Stop Date: 12/03/16 Status: Completedpotassium chloride 40 mEq, Route: PO, Drug form: ERTAB, ONCE, Dosing Weight 63.636, kg, Start date : 12/03/16 7:47:00 REDEYE GUNNER, Stop date: 12/03/16 7:47:00 REDEYE GUNNER Start Date: 12/03/16 Stop Date: 12/03/16 Status: Deletedpotassium chloride 10 mEq, 100 mL, Route: IVPB, Drug form: INJ, Q1H, Dosing Weight 63.835, kg, Total Dose=40 meq, Startdate: 12/02/16 22:00:00 REDEYE GUNNER, Duration: 4 doses or times , Stop date: 12/03/16 1:00:00 REDEYE GUNNER, Peripheral Line Notes: Infuse at a rate of 10 mEq/hr.(Same as: KCL) Start Date: 12/02/16 Stop Date: 12/03/16 Status: Completedpotassium chloride 20 mEq oral tablet, extended release 40 mEq, 2 tab, Route: PO, Drug form: ERTAB, ONCE, Dosing Weight 63.835, kg, Priority: STAT, Start date: 12/02/16 20:29:00 REDEYE GUNNER, Stop date: 12/02/16 20:29:00 REDEYE GUNNER Notes: (Same as: K-Dur 20)"Do Not Crush" With food and full glass of water Start Date: 12/02/16 Stop Date: 12/02/16 Status: CompletedPrenatal Multivitamins with Folic Acid 0.8 mg oral tablet 1 tab, Route: PO, Drug Form: TAB, Dosing Weight 63.636, kg, Daily, Start date: 12/03/16 9:00:00 REDEYE GUNNER,Duration: 30 day, Stop date: 01/01/17 9:00:00 REDEYE GUNNER Start Date: 12/03/16 Stop Date: 12/04/16 Status: Discontinuedpromethazine 12.5 mg, 50 mL, Route: IVPB, Drug form: SOLN, Q4H, Dosing Weight 63.636, kg, PRN Nausea & Vomiting, Start date: 12/03/16 0:31:00 REDEYE GUNNER, Duration: 30 day, Stop date: 01/02/17 0:30:00 REDEYE GUNNER Start Date: 12/03/16 Stop Date: 12/04/16 Status: DiscontinuedRocephin + sodium chloride 0.9% INJ 100 mL 1 gm, Route: IVPB, Drug form: PDR/INJ, ONCE, Dosing Weight 63.835, kg, Priority : STAT, Start date: 12/02/16 21:00:00 REDEYE GUNNER, Stop date: 12/02/16 21:00:00 REDEYE GUNNER Notes: (Same As: Rocephin).Use with 100 mL NS and infuse over 30 min MEDICATION WASTE Product Size: 1000 mgProduct Wasted: ___ mg Start Date: 12/02/16 Stop Date: 12/02/16 Status: Completedsodium chloride 0.9% 1000 ml INJ 1,000 mL 1,000 mL, Rate: 100 ml/hr, Infuse over: 10 hr, Route: IV, Dosing Weight 63.636 kg, Total Volume: 1,000, Start date: 12/03/16 0:31:00 REDEYE GUNNER, Duration: 30 day, Stop date: 01/02/17 0:30:00 REDEYE GUNNER Start Date: 12/03/16 Stop Date: 12/03/16 Status: DiscontinuedZofran 4 mg, 2 mL, Route: IVP, Drug form: INJ, ONCE, Dosing Weight 63.835, kg, Priority : STAT, Start date: 12/02/16 20:59:00 REDEYE GUNNER, Stop date: 12/02/16 20:59:00 REDEYE GUNNER Notes: (Same as: Zofran) MEDICATION WASTE Product Size: 4 mgProduct Wasted: ___ mg Start Date: 12/02/16 Stop Date: 12/02/16 Status: CompletedZofran 4 mg, 2 mL, Route: IVP, Drug form: INJ, ONCE, Dosing Weight 63.835, kg, Priority : STAT, Start date: 12/02/16 19:28:00 REDEYE GUNNER, Stop date: 12/02/16 19:28:00 REDEYE GUNNER Notes: (Same as: April) MEDICATION WASTE Product Size: 4 mgProduct Wasted: ___ mg Start Date: 12/02/16 Stop Date: 12/02/16 Status: Completed Results BLOOD BANK RESULTS Most recent to oldest [Reference Range]: 1 2 3 ABO/Rh B POS *Unknown* (12/02/16 7:34 PM) ELECTROLYTES Most recent to oldest 1 2 3 [Reference Range]: Sodium Lvl [135-145 mEq/L] 139 mEq/L 140 mEq/L 140 mEq/L (12/04/16 6:28 AM) (12/03/16 5:12 PM) (12/02/16 7:34 PM) Potassium Lvl [3.5-5.1 3.7 mEq/L 4.3 mEq/L 3.3 mEq/L mEq/L] (12/04/16 6:28 AM) (12/03/16 5:12 PM) *LOW* (12/03/16 5:05 AM) Chloride Lvl [95-109 mEq/L] 106 mEq/L 109 mEq/L 107 mEq/L (12/04/16 6:28 AM) (12/03/16 5:12 PM) (12/02/16 7:34 PM) CO2 [24-32 mEq/L] 26 mEq/L 26 mEq/L 26 mEq/L (12/04/16 6:28 AM) (12/03/16 5:12 PM) (12/02/16 7:34 PM) AGAP [10.0-20.0 mEq/L] 10.7 mEq/L 9.3 mEq/L 10.0 mEq/L (12/04/16 6:28 AM) *LOW* (12/02/16 7:34 PM) (12/03/16 5:12 PM) CHEM PANEL Most recent to oldest 1 2 3 [Reference Range]: Creatinine Lvl [0.50-1.40 0.46 mg/dL 0.34 mg/dL 0.52 mg/dL mg/dL] *LOW* *LOW* (12/02/16 7:34 PM) (12/04/16 6:28 AM) (12/03/16 5:12 PM) eGFR 145 mL/min/1.73m2 1 159 mL/min/1.73m2 2 139 mL/min/1.73m2 3 *NA* *NA* *NA* (12/04/16 6:28 AM) (12/03/16 5:12 PM) (12/02/16 7:34 PM) BUN [7-22 mg/dL] 3 mg/dL 3 mg/dL 5 mg/dL *LOW* *LOW* *LOW* (12/04/16 6:28 AM) (12/03/16 5:12 PM) (12/02/16 7:34 PM) B/C Ratio [6-25] 10 (12/02/16 7:34 PM) Glucose Lvl [70-99 mg/dL] 97 mg/dL 97 mg/dL 84 mg/dL (12/04/16 6:28 AM) (12/03/16 5:12 PM) (12/02/16 7:34 PM) Total Protein [6.4-8.4 7.1 g/dL g/dL] (12/02/16 7:34 PM) Albumin Lvl [3.5-5.0 g/dL] 3.7 g/dL (12/02/16 7:34 PM) Globulin [2.7-4.2 g/dL] 3.4 g/dL (12/02/16 7:34 PM) A/G Ratio [0.7-1.6] 1.1 (12/02/16 7:34 PM) Calcium Lvl [8.5-10.5 8.4 mg/dL 8.3 mg/dL 8.9 mg/dL mg/dL] *LOW* *LOW* (12/02/16 7:34 PM) (12/04/16 6:28 AM) (12/03/16 5:12 PM) Magnesium Lvl [1.8-2.4 1.7 mg/dL 1.9 mg/dL 1.5 mg/dL mg/dL] *LOW* (12/03/16 5:12 PM) *LOW* (12/04/16 6:28 AM) (12/03/16 5:05 AM) ALT [0-65 unit/L] 23 unit/L (12/02/16 7:34 PM) AST [0-37 unit/L] 16 unit/L (12/02/16 7:34 PM) Alk Phos [39-136 unit/L] 70 unit/L (12/02/16 7:34 PM) Bili Total [0.2-1.3 mg/dL] 0.2 mg/dL (12/02/16 7:34 PM) 1Result Comment: The eGFR is calculated [...] to oldest [Reference Range]: 1 2 [place] [address] mIU/mL *NA* (12/02/16 7:34 PM) URINE AND STOOL Most recent to oldest [Reference Range]: 1 2 3 UA Turbidity [Clear] Slight *ABN* (12/02/16 7:36 PM) UA Color [Yellow] Yellow *NA* (12/02/16 7:36 PM) UA pH [5.0-8.0] 7.0 (12/02/16 7:36 PM) UA Spec Grav [<=1.030] 1.004 (12/02/16 7:36 PM) UA Glucose [Negative mg/dL] Negative mg/dL *NA* (12/02/16 7:36 PM) UA Blood [Negative] Large *ABN* (12/02/16 7:36 PM) UA Ketones [Negative mg/dL] Negative mg/dL *NA* (12/02/16 7:36 PM) UA Protein [Negative mg/dL] 20 mg/dL *ABN* (12/02/16 7:36 PM) UA Urobilinogen [0.1-1.0 mg/dL] <=1.0 mg/dL *NA* (12/02/16 7:36 PM) UA Bili [Negative] Negative *NA* (12/02/16 7:36 PM) UA Leuk Est [Negative] Moderate *ABN* (12/02/16 7:36 PM) UA Nitrite [Negative] Negative (12/02/16 7:36 PM) UA WBC [0-5 /HPF] 7 /HPF *HI* (12/02/16 7:36 PM) UA RBC [0-2 /HPF] >182 /HPF *HI* (12/02/16 7:36 PM) UA Bacteria [None Seen /HPF] Few /HPF *NA* (12/02/16 7:36 PM) UA Sq Epi [Few /LPF] Many /LPF *ABN* (12/02/16 7:36 PM) HEMATOLOGY Most recent to oldest 1 2 3 [Reference Range]: WBC [3.7-10.4 K/CMM] 5.1 K/CMM 5.0 K/CMM 5.8 K/CMM (12/04/16 6:28 AM) (12/03/16 5:12 PM) (12/02/16 7:34 PM) RBC [4.20-5.40 M/CMM] 3.96 M/CMM 3.84 M/CMM 4.00 M/CMM *LOW* *LOW* *LOW* (12/04/16 6:28 AM) (12/03/16 5:12 PM) (12/02/16 7:34 PM) Hgb [12.0-16.0 g/dL] 11.8 g/dL 11.4 g/dL 11.8 g/dL *LOW* *LOW* *LOW* (12/04/16 6:28 AM) (12/03/16 5:12 PM) (12/02/16 7:34 PM) Hct [36.0-48.0 %] 34.7 % 33.8 % 34.7 % *LOW* *LOW* *LOW* (12/04/16 6:28 AM) (12/03/16 5:12 PM) (12/02/16 7:34 PM) MCV [80.0-98.0 fL] 87.5 fL 87.9 fL 86.8 fL (12/04/16 6:28 AM) (12/03/16 5:12 PM) (12/02/16 7:34 PM) MCH [27.0-31.0 pg] 29.8 pg 29.8 pg 29.4 pg (12/04/16 6:28 AM) (12/03/16 5:12 PM) (12/02/16 7:34 PM) MCHC [32.0-36.0 g/dL] 34.0 g/dL 33.9 g/dL 33.9 g/dL (12/04/16 6:28 AM) (12/03/16 5:12 PM) (12/02/16 7:34 PM) RDW [11.5-14.5 %] 15.0 % 15.0 % 14.6 % *HI* *HI* *HI* (12/04/16 6:28 AM) (12/03/16 5:12 PM) (12/02/16 7:34 PM) Platelet [133-450 K/CMM] 164 K/CMM 220 K/CMM 180 K/CMM (12/04/16 6:28 AM) (12/03/16 5:12 PM) (12/02/16 7:34 PM) MPV [7.4-10.4 fL] 7.4 fL 8.0 fL 7.0 fL (12/04/16 6:28 AM) (12/03/16 5:12 PM) *LOW* (12/02/16 7:34 PM) Segs [45.0-75.0 %] 64.2 % 52.7 % 52.6 % (12/04/16 6:28 AM) (12/03/16 5:12 PM) (12/02/16 7:34 PM) Lymphocytes [20.0-40.0 %] 23.7 % 35.0 % 36.2 % (12/04/16 6:28 AM) (12/03/16 5:12 PM) (12/02/16 7:34 PM) Monocytes [2.0-12.0 %] 7.2 % 8.2 % 8.0 % (12/04/16 6:28 AM) (12/03/16 5:12 PM) (12/02/16 7:34 PM) Eosinophils [0.0-4.0 %] 3.9 % 3.3 % 2.5 % (12/04/16 6:28 AM) (12/03/16 5:12 PM) (12/02/16 7:34 PM) Basophils [0.0-1.0 %] 1.0 % 0.8 % 0.7 % (12/04/16 6:28 AM) (12/03/16 5:12 PM) (12/02/16 7:34 PM) Segs-Bands # [1.5-8.1 K/CMM] 3.3 K/CMM 2.6 K/CMM 3.1 K/CMM (12/04/16 6:28 AM) (12/03/16 5:12 PM) (12/02/16 7:34 PM) Lymphocytes # [1.0-5.5 1.2 K/CMM 1.7 K/CMM 2.1 K/CMM K/CMM] (12/04/16 6:28 AM) (12/03/16 5:12 PM) (12/02/16 7:34 PM) Monocytes # [0.0-0.8 K/CMM] 0.4 K/CMM 0.4 K/CMM 0.5 K/CMM (12/04/16 6:28 AM) (12/03/16 5:12 PM) (12/02/16 7:34 PM) Eosinophils # [0.0-0.5 0.2 K/CMM 0.2 K/CMM 0.1 K/CMM K/CMM] (12/04/16 6:28 AM) (12/03/16 5:12 PM) (12/02/16 7:34 PM) Basophils # [0.0-0.2 K/CMM] 0.1 K/CMM (12/04/16 6:28 AM) Immunizations Given and Recorded Vaccine Date Status Refusal Reason influenza virus vaccine, inactivated 02/14/16 Given Procedures Procedure Date Related Diagnosis Body Site CS - Caesarean section 05/07/16 Stent placement Social History Social History Type Response Substance Abuse Use: None. Alcohol Past Smoking Status Former smoker; Type: Cigarettes; Concerns about tobacco use in household: Yes; Lives with someone who smokes; Cigarette Smoking Last 365 Days No; Reg Smoking Cessation Counseling Yes Assessment and Plan Extracted from: Title: Clinical Document Author: Tino Patterson MD Date: 12/04/16 Attending: Isaías Guaman MD Service: Internal Medicine Code status: Full Code [Ordered] Reason for Admission: 10 WKS PREG VAG BLEED Working DRG: Esophagitis, gastroent & misc digest disorders w/o [facility] Isolation: None Documented Consulting Physicians: Rodolfo Naranjo MD Office: Service: Urology Rodolfo Yousif MD Office: Service: Medicine George Morales MD Office: Service: Medicine Andrew Riley MD Office: 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 Female with a history of prior kidney stones and recurrent UTIs who presents to the emergency room complaining of right flank pain, dysuria , blood in urine, nausea and vomiting which started about a week ago. She admits to abdominal discomfort particularly in the suprapubic area radiating to the right flank associated with dysuria, hematuria, nausea with vomiting. She states that s he had a fever to 102 at home. She has not had any fevers while admitted. Urine cultures have been negative. She had a retroperitoneal U/S that was unremarkable (no stones, no hydro). She was underwent stent placement and subsequent removal last year during her previous . Past Medical History: Depression Kidney stone Social History: Alcohol Details: Past Tobacco Details: Use: Former smoker. Type: Cigarettes. Household tobacco concerns: Yes. Tobacco smoke exposure: Lives with someone who smokes. Did the Patient Smoke Cigarettes Anytime During the Last 365 Days? No. Cessation Counseling Provided? Yes. Details: Use: Current [...] Abuse Details: Use: None. Past Surgical History: CS - Caesarean section: 05/07/16 Stent placement Family History: Father: Heart disease; High blood pressure Mother: Heart disease Sister: Asthma Objective: Vital Signs (last 24 hrs) Last Charted Temp Oral 98.9 DegF (DEC 04 08:00) Heart Rate Peripheral 93 bpm (DEC 04 08:00) Resp Rate 18 BRMIN (DEC 04 08:) SBP 99 mmHg (DEC 04 08:00) DBP 61 mmHg (DEC 04 08:00) SpO2 99 % (DEC 04 08:) Physical Exam: NAD abd SNT, ND no CVAT ext wwp b/l I/O Intake Output Balance 12/04/2016 7a-3p 1.00 0.00 1.00 As of 12:04 3p-11p 0.00 0.00 0.00 11p-7a 0.00 0.00 0.00 Totals 1.00 0.00 1.00 12/03/2016 7a-3p 852.00 0.00 852.00 3p-11p 1.00 0.00 1.00 11p-7a 2.00 0.00 2.00 Totals 855.00 0.00 855.00 12/02/2016 7a-3p 0.00 0.00 0.00 3p-11p 2100.00 1450.00 650.00 11p-7a 1468.67 0.00 1468.67 Totals 3568.67 1450.00 2118.67 Medications (4) Active Scheduled: (2) cefTRIAXone 1 gm INJ VL + sodium chloride 0.9% INJ 100 mL 1 gm, IVPB, [id number] multivitamin w/FA 0.8 mg Tab 1 tab, PO, Daily Continuous: (0) PRN: (2) MORPhine sulfate PF 2 mg/ml CARP 2 mg 1 mL, IVP, Q4H promethazine 12.5 mg / NS 50 ml 12.5 mg 50 mL, IVPB, Q4H Labs (Last four charted values) WBC 5.1 (DEC 04) 5.0 (DEC 03) 5.8 (DEC 02) Hgb L 11.8 (DEC 04) L 11.4 (DEC 03) L 11.8 (DEC 02) Hct L 34.7 (DEC 04) L 33.8 (DEC 03) L 34.7 (DEC 02) Plt 164 (DEC 04) 220 (DEC 03) 180 (DEC 02) Na 139 (DEC 04) 140 (DEC 03) 140 (DEC 02) K 3.7 (DEC 04) 4.3 (DEC 03) L 3.3 (DEC 03) C 3.0 (DEC 02) CO2 26 (DEC 04) 26 (DEC 03) 26 (DEC 02) Cl 106 (DEC 04) 109 (DEC 03) 107 (DEC 02) Cr L 0.46 (DEC 04) L 0.34 (DEC 03) 0.52 (DEC 02) BUN L 3 (DEC 04) L 3 (DEC 03) L 5 (DEC 02) Glucose Random 97 (DEC 04) 97 (DEC 03) 84 (DEC 02) Mg L 1.7 (DEC 04) 1.9 (DEC 03) L 1.5 (DEC 03) Ca L 8.4 (DEC 04) L 8.3 (DEC 03) 8.9 (DEC 02) Assessment & Plan: 21 y.o. F admitted with presumed complicated UTI vs. pyelonephritis, currently doing well from a clinical standpoint. There was no evidence of obstruction on the U/S. -No surgical intervention indicated at this time from urologic standpoint -treat with abx as you are -call with questions. Thank you for this consult. Extracted from: Title: Progress Note * Author: Vane Gomez MD Date: 12/04/16 Impression and Plan UTI abd possible pyelonephritis- pt afbrile, WBC normal , Urine csx Neg seen by URO this afternoon - they recommend antibiotics Will DC home on Keflex ( safe in per OBGYN hospitalist ) - 10 wks f/u with [facility]gyn at [place] as OP d/w pt d/w nurse
--- OUTSIDE RECORDS SUMMARY | 2018-08-25 06:38 | XMS REPORT | Summary of Care ---
:1995 Author Organization [facility] Address [address] [place] [phone]- Encounter HQ Shakirr_loreta(FIN) [id number] Date(s): 11/26/16 - 11/28/[address] [address]- Discharge Disposition: Home or Self Care Attending Physician: Jasmeet Dumont MD Admitting Physician: Jasmeet Dumont MD Vital Signs Most recent to oldest 1 2 3 [Reference Range]: Height 167.64 cm (11/26/16 6:02 PM) Temperature Oral [96.4-99.1 97.8 DegF 98.4 DegF 98.6 DegF DegF] (11/28/16 7:24 AM) (11/28/16 4:15 AM) (11/28/16 12:16 AM) Blood Pressure [90-140/60-90 92/60 mmHg 107/64 mmHg 97/59 mmHg mmHg] (11/28/16 7:24 AM) (11/28/16 4:15 AM) (11/28/16 12:16 AM) Respiratory Rate [14-20 BRMIN] 15 BRMIN 18 BRMIN 16 BRMIN (11/28/16 7:24 AM) (11/28/16 4:15 AM) (11/28/16 12:16 AM) Peripheral Pulse Rate [60-100 55 bpm 67 bpm 73 bpm bpm] *LOW* (11/28/16 4:15 AM) (11/28/16 12:16 AM) (11/28/16 7:24 AM) Weight 61.818 kg (11/26/16 6:02 PM) Body Mass Index 22 m2 (11/26/16 6:02 PM) Problem List Condition Effective Dates Status Health Status Informant Depression(Confirmed) Resolved Infectious disease in mother Active complicating , childbirth AND/OR puerperium(Confirmed) Kidney stone(Confirmed) 2014 Resolved (Confirmed) 02/13/16 - 06/23/16 8:46 AM Resolved Tobacco use(Confirmed) Active Allergies, Adverse Reactions, Alerts Substance Reaction Severity Status acetaminophen1 Active 1itching Medications acetaminophen 500 mg, Route: PO, Q4H, Dosing Weight 61.818, kg, PRN Pain 4-6/Temp > 100.4 F, Start date: 11/27/16 0:51:00 INDUSTRIAL PHOTOGRAPHER, Duration: 30 day, Stop date: 12/27/16 0:50:00 INDUSTRIAL PHOTOGRAPHER Start Date: 11/27/16 Stop Date: 11/27/16 Status: Discontinuedacetaminophen 1,000 mg, 2 tab, Route: PO, Drug form: TAB, Q6H, Dosing Weight 61.818, kg, PRN Pain 4-6/Temp > 100.4 F, Start date: 11/27/16 0:56:00 INDUSTRIAL PHOTOGRAPHER, Duration: 30 day, Stop date: 12/27/16 0:55:00 INDUSTRIAL PHOTOGRAPHER Notes: Max acetaminophen 4000 mg/day (4 gm/day). (Same as: Tylenol Extra Strength) Start Date: 11/27/16 Stop Date: 11/27/16 Status: DiscontinuedcefTRIAXone 1 gm, Route: IVPB, Drug form: PDR/INJ, Daily, Dosing Weight 61.818, kg, Priority : STAT, Start date: 11/26/16 22:37:00 INDUSTRIAL PHOTOGRAPHER, Duration: 30 day, Stop date: 9:00:00 INDUSTRIAL PHOTOGRAPHER Start Date: 11/26/16 Stop Date: 11/26/16 Status: DeletedcefTRIAXone + sodium chloride 0.9% INJ 100 mL 1 gm, Route: IVPB, Q24H, Start date: 11/27/16 21:00:00 INDUSTRIAL PHOTOGRAPHER, Duration: 30 day, Stop date: 12/26/16 21:00:00 INDUSTRIAL PHOTOGRAPHER Notes: (Same As: Rocephin).Use with 100 mL NS and infuse over 30 min MEDICATION WASTE Product Size: 1000 mgProduct Wasted: ___ mg Start Date: 11/27/16 Stop Date: 11/28/16 Status: Discontinuedmagnesium oxide 800 mg, 2 tab, Route: PO, Drug form: TAB, ONCE, Dosing Weight 61.818, kg, Start date: 11/27/16 9:58:00 INDUSTRIAL PHOTOGRAPHER, Stop date: 11/27/16 9:58:00 INDUSTRIAL PHOTOGRAPHER Notes: (Same as: Mag-Ox 400)Magnesium oxide [id number] elemental magnesiumDose= ____mg magnesium oxide (___mg elemental magnesium) Start Date: 11/27/16 Stop Date: 11/27/16 Status: Completedmorphine Sulfate 1 mg, 0.5 mL, Route: IVP, Drug form: INJ, ONCE, Dosing Weight 61.818, kg, Start date: 11/27/16 1:15:00 INDUSTRIAL PHOTOGRAPHER, Stop date: 11/27/16 1:15:00 INDUSTRIAL PHOTOGRAPHER Notes: (Same as:MORPhine Sulfate) Start Date: 11/27/16 Stop Date: 11/27/16 Status: Completedmorphine Sulfate 2 mg, 1 mL, Route: IVP, Drug form: INJ, Q2H, Dosing Weight 61.818, kg, PRN Pain Score 7-10, Start date: 11/27/16 8:02:00 INDUSTRIAL PHOTOGRAPHER, Duration: 30 day, Stop date: 12/27 8:01:00 INDUSTRIAL PHOTOGRAPHER Notes: (Same as:MORPhine Sulfate) Start Date: 11/27/16 Stop Date: 11/28/16 Status: Discontinuedmorphine Sulfate 2 mg, 1 mL, Route: IVP, Drug form: INJ, Q4H, Dosing Weight 61.818, kg, PRN Pain Score 6-10, cation-breast feeding, Priority: STAT, Start date: 11/26/16 22:40: 00 INDUSTRIAL PHOTOGRAPHER, Duration: 30 day, Stop date: 12/26/16 22:39:00 INDUSTRIAL PHOTOGRAPHER Notes: (Same as:MORPhine Sulfate) Start Date: 11/26/16 Stop Date: 11/26/16 Status: DiscontinuedNorco 10/325 oral tablet 1 tab, Route: PO, Drug Form: TAB, Dosing Weight 61.818, kg, ONCE, STAT, Start date: 11/26/16 21:06:00 INDUSTRIAL PHOTOGRAPHER, Stop date: 11/26/16 21:06:00 INDUSTRIAL PHOTOGRAPHER Notes: Do not exceed 4gm/day of acetaminophen. (Same as: [place] 325/10) Start Date: 11/26/16 Stop Date: 11/26/16 Status: CompletedNS (Bolus) IV 1,000 mL, 1,000 ml/hr, Infuse Over: 1 hr, Route: IV, 1,000, Drug form: INJ, ONCE , Priority: STAT, Dosing Weight 61.818 kg, Start date: 11/26/16 22:16:00 INDUSTRIAL PHOTOGRAPHER, Duration: 1 doses or times, Stop date: 11/26/16 22:16:00 INDUSTRIAL PHOTOGRAPHER Start Date: 11/26/16 Stop Date: 11/26/16 Status: CompletedOmnicef 300 mg oral capsule 300 mg=1 cap, PO, Q12H, X 10 day, # 20 cap, 0 Refill(s) Start Date: 11/28/16 Stop Date: 12/08/16 Status: OrderedPrenatal Multivitamins with Folic Acid 1 mg oral tablet 1 tab, PO, Daily, Take over the counter, # 90 tab, 0 Refill(s), other Start Date: 11/28/16 Status: OrderedRocephin + sodium chloride 0.9% INJ 100 mL 1 gm, Route: IVPB, ONCE, Dosing Weight 61.818, kg, Priority: STAT, Start date: 11/26/16 22:15:00 INDUSTRIAL PHOTOGRAPHER, Stop date: 11/26/16 22:15:00 INDUSTRIAL PHOTOGRAPHER Notes: (Same As: Rocephin).Use with 100 mL NS and infuse over 30 min MEDICATION WASTE Product Size: 1000 mgProduct Wasted: ___ mg Start Date: 11/26/16 Stop Date: 11/26/16 Status: CompletedSaline Flush 0.9% 10 mL, Route: IVP, Drug Form: INJ, Dosing Weight 65.909, kg, PRN, PRN Line Flush , Start date: 11/26/16 18:05:00 INDUSTRIAL PHOTOGRAPHER, Duration: 30 day, Stop date: 12/26/16 18:04 :00 INDUSTRIAL PHOTOGRAPHER Notes: Same as: BD Posiflush Sterile Start Date: 11/26/16 Stop Date: 11/28/16 Status: Discontinuedsodium chloride 0.9% 1000 ml INJ 1,000 mL 1,000 mL, Rate: 75 ml/hr, Infuse over: 13.3 hr, Route: IV, Dosing Weight 61.818 kg, Total Volume: 1,000, Start date: 11/26/16 22:16:00 INDUSTRIAL PHOTOGRAPHER, Duration: 30 day, Stop date: 12/26/16 22:15:00 INDUSTRIAL PHOTOGRAPHER Start Date: 11/26/16 Stop Date: 11/26/16 Status: Discontinuedsodium chloride 0.9% 1000 ml INJ 1,000 mL 1,000 mL, Rate: 100 ml/hr, Infuse over: 10 hr, Route: IV, Dosing Weight 61.818 kg, Total Volume: 1,000, Start date: 11/26/16 22:37:00 INDUSTRIAL PHOTOGRAPHER, Duration: 30 day, Stop date: 12/26/16 22:36:00 INDUSTRIAL PHOTOGRAPHER Start Date: 11/26/16 Stop Date: 11/28/16 Status: DiscontinuedUltram 50 mg oral tablet See Instructions, PRN pain, 1 tab PO Q4-6H for 4 day, # 24 tab, 0 Refill(s) Start Date: 11/28/16 Stop Date: 12/05/16 Status: OrderedZofran 4 mg, 2 mL, Route: IV, Drug form: INJ, Q4H, Dosing Weight 61.818, kg, PRN Nausea , Start date: 11/27/16 8:02:00 INDUSTRIAL PHOTOGRAPHER, Duration: 30 day, Stop date: 12/27/16 8:01: 00 INDUSTRIAL PHOTOGRAPHER Notes: (Same as: Zofran) MEDICATION WASTE Product Size: 4 mgProduct Wasted: ___ mg Start Date: 11/27/16 Stop Date: 11/28/16 Status: Discontinued Results ELECTROLYTES Most recent to oldest 1 2 3 [Reference Range]: Sodium Lvl [135-145 mEq/L] 141 mEq/L 140 mEq/L 136 mEq/L (11/28/16 5:25 AM) (11/27/16 5:04 AM) (11/26/16 8:45 PM) Potassium Lvl [3.5-5.1 mEq/L] 3.5 mEq/L 3.5 mEq/L 3.5 mEq/L (11/28/16 5:25 AM) (11/27/16 5:04 AM) (11/26/16 8:45 PM) Chloride Lvl [95-109 mEq/L] 108 mEq/L 109 mEq/L 103 mEq/L (11/28/16 5:25 AM) (11/27/16 5:04 AM) (11/26/16 8:45 PM) CO2 [24-32 mEq/L] 24 mEq/L 23 mEq/L 26 mEq/L (11/28/16 5:25 AM) *LOW* (11/26/16 8:45 PM) (11/27/16 5:04 AM) AGAP [10.0-20.0 mEq/L] 12.5 mEq/L 11.5 mEq/L 10.5 mEq/L (11/28/16 5:25 AM) (11/27/16 5:04 AM) (11/26/16 8:45 PM) CHEM PANEL Most recent to oldest 1 2 3 [Reference Range]: Creatinine Lvl [0.50-1.40 0.36 mg/dL 0.43 mg/dL 0.50 mg/dL mg/dL] *LOW* *LOW* (11/26/16 8:45 PM) (11/28/16 5:25 AM) (11/27/16 5:04 AM) eGFR 157 mL/min/1.73m2 1 148 mL/min/1.73m2 2 140 mL/min/1.73m2 3 *NA* *NA* *NA* (11/28/16 5:25 AM) (11/27/16 5:04 AM) (11/26/16 8:45 PM) BUN [7-22 mg/dL] 3 mg/dL 6 mg/dL 6 mg/dL *LOW* *LOW* *LOW* (11/28/16 5:25 AM) (11/27/16 5:04 AM) (11/26/16 8:45 PM) B/C Ratio [6-25] 12 (11/26/16 8:45 PM) Glucose Lvl [70-99 mg/dL] 94 mg/dL 95 mg/dL 95 mg/dL (11/28/16 5:25 AM) (11/27/16 5:04 AM) (11/26/16 8:45 PM) Total Protein [6.4-8.4 7.6 g/dL g/dL] (11/26/16 8:45 PM) Albumin Lvl [3.5-5.0 g/dL] 4.1 g/dL (11/26/16 8:45 PM) Globulin [2.7-4.2 g/dL] 3.5 g/dL (11/26/16 8:45 PM) A/G Ratio [0.7-1.6] 1.2 (11/26/16 8:45 PM) Calcium Lvl [8.5-10.5 8.1 mg/dL 8.2 mg/dL 8.8 mg/dL mg/dL] *LOW* *LOW* (11/26/16 8:45 PM) (11/28/16 5:25 AM) (11/27/16 5:04 AM) Phosphorus [2.5-4.5 mg/dL] 3.1 mg/dL (11/28/16 5:25 AM) Magnesium Lvl [1.8-2.4 1.8 mg/dL 1.7 mg/dL mg/dL] (11/28/16 5:25 AM) *LOW* (11/27/16 5:04 AM) ALT [0-65 unit/L] 28 unit/L (11/26/16 8:45 PM) AST [0-37 unit/L] 19 unit/L (11/26/16 8:45 PM) Alk Phos [39-136 unit/L] 63 unit/L (11/26/16 8:45 PM) Bili Total [0.2-1.3 mg/dL] 0.6 mg/dL (11/26/16 8:45 PM) Lactic Acid Lvl [0.5-2.2 0.5 mMol/L mMol/L] (11/26/16 8:45 PM) 1Result Comment: The eGFR is calculated [...] [Reference Range]: 1 2 3 [place] [address] mIU/mL *NA* (11/26/16 8:45 PM) URINE AND STOOL Most recent to oldest [Reference Range]: 1 2 3 UA Turbidity [Clear] Slight *ABN* (11/26/16 8:45 PM) UA Color [Yellow] Yellow *NA* (11/26/16 8:45 PM) UA pH [5.0-8.0] 6.0 (11/26/16 8:45 PM) UA Spec Grav [<=1.030] 1.015 (11/26/16 8:45 PM) UA Glucose [Negative mg/dL] Negative mg/dL *NA* (11/26/16 8:45 PM) UA Blood [Negative] Negative (11/26/16 8:45 PM) UA Ketones [Negative mg/dL] Negative mg/dL *NA* (11/26/16 8:45 PM) UA Protein [Negative mg/dL] Negative mg/dL (11/26/16 8:45 PM) UA Urobilinogen [0.1-1.0 mg/dL] <=1.0 mg/dL *NA* (11/26/16 8:45 PM) UA Bili [Negative] Negative *NA* (11/26/16 8:45 PM) UA Leuk Est [Negative] Large *ABN* (11/26/16 8:45 PM) UA Nitrite [Negative] Negative (11/26/16 8:45 PM) UA WBC [0-5 /HPF] 3 /HPF (11/26/16 8:45 PM) UA RBC [0-2 /HPF] 2 /HPF (11/26/16 8:45 PM) UA Sq Epi [Few /LPF] Many /LPF *ABN* (11/26/16 8:45 PM) UA Mucus [None Seen /LPF] Few /LPF *NA* (11/26/16 8:45 PM) HEMATOLOGY Most recent to oldest 1 2 3 [Reference Range]: WBC [3.7-10.4 K/CMM] 5.5 K/CMM 5.6 K/CMM 6.6 K/CMM (11/28/16 5:25 AM) (11/27/16 5:04 AM) (11/26/16 8:45 PM) RBC [4.20-5.40 M/CMM] 3.77 M/CMM 3.84 M/CMM 4.23 M/CMM *LOW* *LOW* (11/26/16 8:45 PM) (11/28/16 5:25 AM) (11/27/16 5:04 AM) Hgb [12.0-16.0 g/dL] 11.2 g/dL 11.3 g/dL 12.4 g/dL *LOW* *LOW* (11/26/16 8:45 PM) (11/28/16 5:25 AM) (11/27/16 5:04 AM) Hct [36.0-48.0 %] 32.8 % 33.4 % 37.0 % *LOW* *LOW* (11/26/16 8:45 PM) (11/28/16 5:25 AM) (11/27/16 5:04 AM) MCV [80.0-98.0 fL] 87.2 fL 86.8 fL 87.4 fL (11/28/16 5:25 AM) (11/27/16 5:04 AM) (11/26/16 8:45 PM) MCH [27.0-31.0 pg] 29.8 pg 29.3 pg 29.3 pg (11/28/16 5:25 AM) (11/27/16 5:04 AM) (11/26/16 8:45 PM) MCHC [32.0-36.0 g/dL] 34.2 g/dL 33.8 g/dL 33.6 g/dL (11/28/16 5:25 AM) (11/27/16 5:04 AM) (11/26/16 8:45 PM) RDW [11.5-14.5 %] 14.2 % 14.8 % 14.3 % (11/28/16 5:25 AM) *HI* (11/26/16 8:45 PM) (11/27/16 5:04 AM) Platelet [133-450 K/CMM] 185 K/CMM 182 K/CMM 209 K/CMM (11/28/16 5:25 AM) (11/27/16 5:04 AM) (11/26/16 8:45 PM) MPV [7.4-10.4 fL] 7.5 fL 7.3 fL 7.3 fL (11/28/16 5:25 AM) *LOW* *LOW* (11/27/16 5:04 AM) (11/26/16 8:45 PM) Segs [45.0-75.0 %] 53.9 % 47.4 % 58.8 % (11/28/16 5:25 AM) (11/27/16 5:04 AM) (11/26/16 8:45 PM) Lymphocytes [20.0-40.0 %] 37.7 % 42.9 % 33.4 % (11/28/16 5:25 AM) *HI* (11/26/16 8:45 PM) (11/27/16 5:04 AM) Monocytes [2.0-12.0 %] 7.5 % 8.2 % 6.9 % (11/28/16 5:25 AM) (11/27/16 5:04 AM) (11/26/16 8:45 PM) Eosinophils [0.0-4.0 %] 0.5 % 0.9 % 0.4 % (11/28/16 5:25 AM) (11/27/16 5:04 AM) (11/26/16 8:45 PM) Basophils [0.0-1.0 %] 0.4 % 0.6 % 0.5 % (11/28/16 5:25 AM) (11/27/16 5:04 AM) (11/26/16 8:45 PM) Segs-Bands # [1.5-8.1 K/CMM] 3.0 K/CMM 2.6 K/CMM 3.9 K/CMM (11/28/16 5:25 AM) (11/27/16 5:04 AM) (11/26/16 8:45 PM) Lymphocytes # [1.0-5.5 K/CMM] 2.1 K/CMM 2.4 K/CMM 2.2 K/CMM (11/28/16 5:25 AM) (11/27/16 5:04 AM) (11/26/16 8:45 PM) Monocytes # [0.0-0.8 K/CMM] 0.4 K/CMM 0.5 K/CMM 0.5 K/CMM (11/28/16 5:25 AM) (11/27/16 5:04 AM) (11/26/16 8:45 PM) Immunizations Given and Recorded Vaccine Date [...] Yes Assessment and Plan Extracted from: Title: Progress Note * Author: Mikhail Willoughby MD Date: 11/28/16 Impression and Plan Pt is a 21 y.o female with 1) abd pain - possible Partially treated pyelonephritis - will cont abx, no sign of renal stone. 2) 10 week - OB consult 3) subchorionic hematoma - per OB, will need close follow up 4) Pain - Morphine per OB, d/w with OB, will d/c home on ultram will d/c home on abx, pt need close ob follow up.
--- OUTSIDE RECORDS SUMMARY | 2018-08-25 06:38 | XMS REPORT | Summary of Care ---
:1995 Author Organization [facility] Address [address] [place] [id number]- Encounter HQ Mike_loreta(FIN) [id number] Date(s): 01/13/17 - 01/13/[address] [address]- Discharge Diagnosis: Abdominal pain during in second trimester Discharge Diagnosis: UTI in Discharge Disposition: Home or Self Care Attending Physician: Jose L Amor MD Vital Signs Most recent to oldest [Reference Range]: 1 2 Height 160.02 cm (01/13/17 5:01 AM) Temperature Oral [96.4-99.1 DegF] 98.3 DegF 98.4 DegF (01/13/17 6:45 AM) (01/13/17 5:01 AM) Blood Pressure [90-140/60-90 mmHg] 102/61 mmHg 97/53 mmHg (01/13/17 6:45 AM) (01/13/17 5:01 AM) Respiratory Rate [14-20 BRMIN] 18 BRMIN 12 BRMIN (01/13/17 6:45 AM) *LOW* (01/13/17 5:01 AM) Peripheral Pulse Rate [60-100 bpm] 69 bpm 71 bpm (01/13/17 6:45 AM) (01/13/17 5:01 AM) Weight 64.545 kg (01/13/17 5:01 AM) Body Mass Index 25.21 m2 (01/13/17 5:01 AM) Problem List Condition Effective Dates Status Health Status Informant Depression(Confirmed) Resolved Infectious disease in mother Active complicating , childbirth AND/OR puerperium(Confirmed) Kidney stone(Confirmed) 2014 Resolved (Confirmed) 02/13/16 - 06/23/16 8:46 AM Resolved Tobacco use(Confirmed) Active Allergies, Adverse Reactions, Alerts Substance Reaction Severity Status acetaminophen1 Active 1itching Medications Macrobid 100 mg oral capsule 100 mg=1 cap, PO, BID, X 10 day, # 20 cap, 0 Refill(s) Start Date: 01/13/17 Stop Date: 01/23/17 Status: Orderedmorphine Sulfate 2 mg, 1 mL, Route: IVP, Drug form: INJ, ONCE, Dosing Weight 64.545, kg, Priority : STAT, Start date: 01/13/17 5:21:00 MALL PLANT CARETAKER, Stop date: 01/13/17 5:21:00 MALL PLANT CARETAKER Notes: (Same as:MORPhine Sulfate) Start Date: 01/13/17 Stop Date: 01/13/17 Status: Completedondansetron 4 mg, 2 mL, Route: IVP, Drug form: INJ, ONCE, Dosing Weight 64.545, kg, Priority : STAT, Start date: 01/13/17 5:21:00 MALL PLANT CARETAKER, Stop date: 01/13/17 5:21:00 MALL PLANT CARETAKER Notes: (Same as: April) MEDICATION WASTE Product Size: 4 mgProduct Wasted: ___ mg Start Date: 01/13/17 Stop Date: 01/13/17 Status: CompletedReglan 10 mg oral tablet 10 mg=1 tab, PO, QID-Before Meals, PRN nausea and vomiting, X 10 day, # 40 tab, 0 Refill(s) Start Date: 01/13/17 Stop Date: 01/23/17 Status: OrderedSaline Flush 0.9% 10 mL, Route: IVP, Drug Form: INJ, Dosing Weight 64.545, kg, PRN, PRN Line Flush , Start date: 01/13/17 5:21:00 MALL PL[employer] CARETAKER, Duration: 30 day, Stop date: 02/12/17 6:20: 00 CDT Notes: Same as: BD Posiflush Sterile Start Date: 01/13/17 Stop Date: 01/13/17 Status: DiscontinuedSodium Chloride 0.9% (Bolus) IV 1,000 mL, 2,000 ml/hr, Infuse Over: 30 minutes, Route: IV, 1,000, Drug form: INJ , ONCE, Priority: STAT, Dosing Weight 64.545 kg, Start date: 01/13/17 5:21:00 MALL PL[employer] CARETAKER, Duration: 1 doses or times, Stop date:01/13/17 5:21:00 MALL PLANT CARETAKER Start Date: 01/13/17 Stop Date: 01/13/17 Status: Completed Results BLOOD BANK RESULTS Most recent to oldest [Reference Range]: 1 ABO/Rh B POS *Unknown* (01/13/17 5: AM) ELECTROLYTES Most recent to oldest [Reference Range]: 1 Sodium Lvl [135-145 mEq/L] 142 mEq/L (01/13/17: AM) Potassium Lvl [3.5-5.1 mEq/L] 3.6 mEq/L (01/13/17 5: AM) Chloride Lvl [95-109 mEq/L] 109 mEq/L (01/13/17 5: AM) CO2 [24-32 mEq/L] 24 mEq/L (01/13/17 5:26 AM) AGAP [10.0-20.0 mEq/L] 12.6 mEq/L (01/13/17 5:26 AM) CHEM PANEL Most recent to oldest [Reference Range]: 1 Creatinine Lvl [0.50-1.40 mg/dL] 0.51 mg/dL (01/13/17 5:26 AM) eGFR 140 mL/min/1.73m2 1 *NA* (01/13/17 5:26 AM) BUN [7-22 mg/dL] 3 mg/dL *LOW* (01/13/17 5:26 AM) B/C Ratio [6-25] 6 (01/13/17 5: AM) Glucose Lvl [70-99 mg/dL] 91 mg/dL (01/13/17 5:26 AM) Total Protein [6.4-8.4 g/dL] 6.6 g/dL (01/13/17 5:26 AM) Albumin Lvl [3.5-5.0 g/dL] 3.1 g/dL *LOW* (01/13/17 5:26 AM) Globulin [2.7-4.2 g/dL] 3.5 g/dL (01/13/17 5:26 AM) A/G Ratio [0.7-1.6] 0.9 (2/26/17 5:26 AM) Calcium Lvl [8.5-10.5 mg/dL] 8.3 mg/dL *LOW* (01/13/17 5:26 AM) ALT [0-65 unit/L] 14 unit/L (01/13/17 5:26 AM) AST [0-37 unit/L] 17 unit/L (01/13/17 5:26 AM) Alk Phos [39-136 unit/L] 57 unit/L (01/13/17 5:26 AM) Bili Total [0.2-1.3 mg/dL] 0.3 mg/dL (01/13/17 5:26 AM) 1Result Comment: The eGFR is calculated [...] to oldest [Reference Range]: 1 hCG Tot 7691 mIU/mL *NA* (01/13/17 5:26 AM) URINE AND STOOL Most recent to oldest [Reference Range]: 1 UA Turbidity [Clear] Slight *ABN* (01/13/17 5:26 AM) UA Color [Yellow] Yellow *NA* (01/13/17 5:26 AM) UA pH [5.0-8.0] 6.0 (01/13/17 5:26 AM) UA Spec Grav [<=1.030] 1.014 (01/13/17 5:26 AM) UA Glucose [Negative mg/dL] Negative mg/dL *NA* (01/13/17 5:26 AM) UA Blood [Negative] Negative (01/13/17 5:26 AM) UA Ketones [Negative mg/dL] Negative mg/dL *NA* (01/13/17 5:26 AM) UA Protein [Negative mg/dL] 10 mg/dL *ABN* (01/13/17 5:26 AM) UA Urobilinogen [0.1-1.0 mg/dL] 2.0 mg/dL *HI* (01/13/17 5:26 AM) UA Bili [Negative] Negative *NA* (01/13/17 5:26 AM) UA Leuk Est [Negative] Small *ABN* (01/13/17 5:26 AM) UA Nitrite [Negative] Negative (01/13/17 5:26 AM) UA WBC [0-5 /HPF] 5 /HPF (01/13/17 5:26 AM) UA RBC [0-2 /HPF] 1 /HPF (01/13/17 5:26 AM) UA Sq Epi [Few /LPF] Many /LPF *ABN* (01/13/17 5:26 AM) UA Mucus [None Seen /LPF] Few /LPF *NA* (01/13/17 5:26 AM) HEMATOLOGY Most recent to oldest [Reference Range]: 1 WBC [3.7-10.4 K/CMM] 6.3 K/CMM (01/13/17 5:26 AM) RBC [4.20-5.40 M/CMM] 3.62 M/CMM *LOW* (01/13/17 5:26 AM) Hgb [12.0-16.0 g/dL] 11.0 g/dL *LOW* (01/13/17 5:26 AM) Hct [36.0-48.0 %] 31.6 % *LOW* (01/13/17 5:26 AM) MCV [80.0-98.0 fL] 87.3 fL (01/13/17 5:26 AM) MCH [27.0-31.0 pg] 30.4 pg (01/13/17 5:26 AM) MCHC [32.0-36.0 g/dL] 34.8 g/dL (01/13/17 5:26 AM) RDW [11.5-14.5 %] 15.1 % *HI* (01/13/17 5:26 AM) Platelet [133-450 K/CMM] 203 K/CMM (01/13/17 5:26 AM) MPV [7.4-10.4 fL] 7.0 fL *LOW* (01/13/17 5:26 AM) Segs [45.0-75.0 %] 53.9 % (01/13/17 5:26 AM) Lymphocytes [20.0-40.0 %] 36.9 % (01/13/17 5:26 AM) Monocytes [2.0-12.0 %] 6.9 % (01/13/17 5:26 AM) Eosinophils [0.0-4.0 %] 1.8 % (01/13/17 5:26 AM) Basophils [0.0-1.0 %] 0.5 % (01/13/17 5:26 AM) Segs-Bands # [1.5-8.1 K/CMM] 3.4 K/CMM (01/13/17 5:26 AM) Lymphocytes # [1.0-5.5 K/CMM] 2.3 K/CMM (01/13/17 5:26 AM) Monocytes # [0.0-0.8 K/CMM] 0.4 K/CMM (01/13/17 5:26 AM) Eosinophils # [0.0-0.5 K/CMM] 0.1 K/CMM (01/13/17 5:26 AM) Immunizations Given and Recorded Vaccine Date [...]
--- OUTSIDE RECORDS SUMMARY | 2018-08-25 06:38 | XMS REPORT | Summary of Care ---
:1995 Author Organization [facility] Address [address] [place] [phone]- Encounter HQ Mike_loreta(FIN) [phone] Date(s): 08/21/16 - 08/22/[address] [address]- Discharge Disposition: Left Against Medical Advise Attending Physician: Deion Boyd MD PHD Admitting Physician: Dieon Boyd MD PHD Vital Signs Most recent to oldest 1 2 3 [Reference Range]: Height 160.02 cm (08/21/16 12:48 AM) Current Weight 66.818 kg (08/21/16 11:45 AM) Temperature Oral [96.4-99.1 98.1 DegF 98.3 DegF 98 DegF DegF] (08/22/16 7:22 PM) (08/22/16 3:07 PM) (08/22/16 12:30 PM) Blood Pressure [90-140/60-90 108/68 mmHg 96/61 mmHg 108/62 mmHg mmHg] (08/22/16 7:22 PM) (08/22/16 3:07 PM) (08/22/16 12:30 PM) Respiratory Rate [14-20 18 BRMIN 17 BRMIN 19 BRMIN BRMIN] (08/22/16 7:22 PM) (08/22/16 3:07 PM) (08/22/16 12:30 PM) Peripheral Pulse Rate [60-100 66 bpm 58 bpm 77 bpm bpm] (08/22/16 7:22 PM) *LOW* (08/22/16 12:30 PM) (08/22/16 3:07 PM) Weight 64.682 kg (08/21/16 12:48 AM) Body Mass Index 25.26 m2 (08/21/16 12:48 AM) Problem List Condition Effective Dates Status Health Status Informant Depression(Confirmed) Resolved Infectious disease in mother Active complicating , childbirth AND/OR puerperium(Confirmed) Kidney stone(Confirmed) 2014 Resolved (Confirmed) 02/13/16 - 06/23/16 8:46 AM Resolved Tobacco use(Confirmed) Active Allergies, Adverse Reactions, Alerts Substance Reaction Severity Status NKDA Active Medications acetaminophen 650 mg, 2 tab, Route: PO, Drug form: TAB, Q4H, Dosing Weight 64.682, kg, PRN Pain 1-3/Temp > 100.4 F, Start date: 08/21/16 8:08:00 CDT, Duration: 30 day, Stop date: 09/20/16 8:07:00 CDT Notes: Do not exceed 4 gm/day. (Same as: Tylenol) Start Date: 08/21/16 Stop Date: 08/23/16 Status: Discontinuedacetaminophen-hydrocodone 325 mg-5 mg oral tablet 1 tab, Route: PO, Drug Form: TAB, Dosing Weight 64.682, kg, TID, PRN Pain Score 7-10, Start date: 08/21/16 8:08:00 CDT, Duration: 30 day, Stop date: 09/20/16 8: 07:00 CDT Notes: (Same as: [place] 325/5) Do not exceed 4gm/day of acetaminophen. Start Date: 08/21/16 Stop Date: 08/23/16 Status: Discontinuedcalcium gluconate + sodium chloride 0.9% INJ 100 mL 2 gm, 20 mL, Route: IVPB, PRN, Dosing Weight 64.682, kg, PRN Abnormal Lab Result , For NON-ICU Patients Only., Start date: 08/22/16 4:54:00 CDT, Duration: 30 day , Stop date: 09/21/16 4:53:00 CDT Notes: WASTE: F/P - Sink; E - Municipal Trash Bin Start Date: 08/22/16 Stop Date: 08/23/16 Status: Discontinuedcalcium gluconate + sodium chloride 0.9% INJ 150 mL 3 gm, 30 mL, Route: IVPB, PRN, Dosing Weight 64.682, kg, PRN Abnormal Lab Result , For NON-ICU Patients Only., Start date: 08/22/16 4:54:00 CDT, Duration: 30 day , Stop date: 09/21/16 4:53:00 CDT Notes: WASTE: F/P - Sink; E - Municipal Trash Bin Start Date: 08/22/16 Stop Date: 08/23/16 Status: DiscontinuedCipro I.V. 400 mg/200 mL intravenous solution 400 mg, 200 mL, Route: IV, Drug form: INJ, [id number], Dosing Weight 64.682, kg, Start date: 08/21/16 4:00:00 CDT, Duration: 30 day, Stop date: 09/19/16 16:00: 00 CDT Notes: Do not refrigerate Start Date: 08/21/16 Stop Date: 08/21/16 Status: DiscontinuedCipro I.V. 400 mg/200 mL intravenous solution 400 mg, 200 mL, Route: IV, Drug form: INJ, ONCE, Dosing Weight 64.682, kg, Start date: 08/21/16 3:19:00 CDT, Stop date: 08/21/16 3:19:00 CDT Notes: Do not refrigerate Start Date: 08/21/16 Stop Date: 08/21/16 Status: CompletedFlagyl 500 mg, 100 mL, Route: IVPB, Drug form: INJ, ONCE, Dosing Weight 64.682, kg, Priority: STAT, Start date: 08/21/16 3:18:00 CDT, Stop date: 08/21/16 3:18:00 CDT Notes: (Same as: Flagyl) Avoid alcohol. Start Date: 08/21/16 Stop Date: 08/21/16 Status: CompletedketOROLAC 15 mg, 0.5 mL, Route: IVP, Drug form: INJ, ONCE, Dosing Weight 64.682, kg, Priority: STAT, Start date: 08/21/16 3:15:00 CDT, Stop date: 08/21/16 3:15:00 CDT Notes: (Same as:Toradol) IV bolus must be given >15 seconds. Give IM administration slowly and deeply into the muscle.Not for use > 4 days MEDICATION WASTE Product Size: 30 mgProduct Wasted: ___ mg Start Date: 08/21/16 Stop Date: 08/21/16 Status: CompletedketOROLAC 15 mg, 0.5 mL, Route: IVP, Drug form: INJ, Q6H, Dosing Weight 64.682, kg, PRN Pain Score 4-6, Start date: 08/21/16 9:53:00 CDT, Stop date: 08/23/16 10:00:00 CDT Notes: (Same as:Toradol) IV bolus must be given >15 seconds. Give IM administration slowly and deeply into the muscle.Not for use > 4 days MEDICATION WASTE Product Size: 30 mgProduct Wasted: 15 mg Start Date: 08/21/16 Stop Date: 08/23/16 Status: Discontinuedmagnesium oxide 800 mg, 2 tab, Route: PO, Drug form: TAB, PRN, Dosing Weight 64.682, kg, PRN Abnormal Lab Result, For NON-ICU Patients Only., Start date: 08/22/16 4:54:00 CDT, Duration: 30 day, Stop date: 09/21/16 4:53:00 CDT Notes: (Same as: Mag-Ox 400)Magnesium oxide [id number] elemental magnesiumDose= ____mg magnesium oxide (___mg elemental magnesium) Start Date: 08/22/16 Stop Date: 08/23/16 Status: Discontinuedmagnesium oxide 800 mg, 2 tab, Route: PO, Drug form: TAB, Daily, Dosing Weight 64.682, kg, Priority: NOW, Start date: 08/22/16 11:37:00 CDT, Duration: 30 day, Stop date: 09/21/16 9:00:00 CDT Notes: (Same as: Mag-Ox 400)Magnesium oxide [id number] elemental magnesiumDose= ____mg magnesium oxide (___mg elemental magnesium) Start Date: 08/22/16 Stop Date: 08/23/16 Status: Discontinuedmagnesium sulfate 1 gm, 100 mL, Route: IVPB, Drug form: INJ, PRN, Dosing Weight 64.682, kg, PRN Abnormal Lab Result, For NON-ICU Patients Only., Start date: 08/22/16 4:54:00 CDT, Duration: 30 day, Stop date: 09/21/16 4:53:00 CDT Notes: WASTE: F/P - Sink; E - Municipal Trash Bin Start Date: 08/22/16 Stop Date: 08/23/16 Status: Discontinuedmagnesium sulfate 2 gm, 50 mL, Route: IVPB, Drug form: INJ, PRN, Dosing Weight 64.682, kg, PRN Abnormal Lab Result, For NON-ICU Patients Only., Start date: 08/22/16 4:54:00 CDT, Duration: 30 day, Stop date: 09/21/16 4:53:00 CDT Notes: WASTE: F/P - Sink; E - Municipal Trash Bin Start Date: 08/22/16 Stop Date: 08/23/16 Status: DiscontinuedmetroNIDAZOLE 500 mg, 100 mL, Route: IVPB, Drug form: INJ, ABXQ8H, Dosing Weight 64.682, kg, Priority: STAT, Startdate: 08/21/16 5:30:00 CDT, Duration: 30 day, Stop date: 21:30:00 CDT Notes: (Same as: Flagyl) Avoid alcohol. Start Date: 08/21/16 Stop Date: 08/23/16 Status: Discontinuedmorphine Sulfate 4 mg, 1 mL, Route: IVP, Drug form: INJ, ONCE, Dosing Weight 64.682, kg, Priority : STAT, Start date: 08/21/16 3:15:00 CDT, Stop date: 08/21/16 3:15:00 CDT Notes: (Same as:MORPhine Sulfate) Start Date: 08/21/16 Stop Date: 08/21/16 Status: Completedmorphine Sulfate 4 mg, 1 mL, Route: IVP, Drug form: INJ, ONCE, Dosing Weight 64.682, kg, Priority : STAT, Start date: 08/21/16 1:20:00 CDT, Stop date: 08/21/16 1:20:00 CDT Notes: (Same as:MORPhine Sulfate) Start Date: 08/21/16 Stop Date: 08/21/16 Status: Completedmorphine Sulfate 4 mg, 1 mL, Route: IVP, Drug form: INJ, Q4H, Dosing Weight 64.682, kg, PRN Pain Score 4-6, Priority:Routine, Start date: 08/21/16 5:31:00 CDT, Duration: 30 day , Stop date: 09/20/16 5:30:00 CDT Notes: (Same as:MORPhine Sulfate) Start Date: 08/21/16 Stop Date: 08/21/16 Status: DiscontinuedNS (Bolus) IV 1,000 mL, 1,000 ml/hr, Infuse Over: 1 hr, Route: IV, 1,000, Drug form: INJ, ONCE , Priority: STAT, Dosing Weight 64.682 kg, Start date: 08/21/16 3:15:00 CDT, Duration: 1 doses or times, Stop date: 08/21/16 3:15:00 CDT Start Date: 08/21/16 Stop Date: 08/21/16 Status: CompletedNS + KCL 20mEq/L 1000ml (Premix) 1,000 mL 1,000 mL, Rate: 125 ml/hr, Infuse over: 8 hr, Route: IV, Dosing Weight 64.682 kg , Total Volume: 1,000, Start date: 08/21/16 5:29:00 CDT, Stop date: 08/23/16 9: 54:00 CDT Notes: PREMIX IV - Do Not AlterWASTE: F/P - Sink; E - Municipal Trash Bin Start Date: 08/21/16 Stop Date: 08/23/16 Status: Discontinuedondansetron 4 mg, 2 mL, Route: IVP, Drug form: INJ, ONCE, Dosing Weight 64.682, kg, Priority : STAT, Start date: 08/21/16 1:20:00 CDT, Stop date: 08/21/16 1:20:00 CDT Notes: (Same as: Zofran) MEDICATION WASTE Product Size: 4 mgProduct Wasted: ___ mg Start Date: 08/21/16 Stop Date: 08/21/16 Status: Completedpotassium chloride 20 mEq, 1 tab, Route: PO, Drug form: ERTAB, PRN, Dosing Weight 64.682, kg, PRN Abnormal Lab Result, For NON-ICU Patients Only, Start date: 08/22/16 4:54:00 CDT , Duration: 30 day, Stop date: 09/21/16 4:53:00 CDT Notes: (Same as: K-Dur 20)"Do Not Crush" With food and full glass of water Start Date: 08/22/16 Stop Date: 08/23/16 Status: Discontinuedpotassium chloride 10 mEq, 100 mL, Route: IVPB, Drug form: INJ, PRN, Dosing Weight 64.682, kg, PRN Abnormal Lab Result,For NON-ICU Patients Only, Start date: 08/22/16 4:54:00 CDT , Duration: 30 day, Stop date: 09/21/16 4:53:00 CDT Notes: Infuse at a rate of 10 mEq/hr.(Same as: KCL) Start Date: 08/22/16 Stop Date: 08/23/16 Status: Discontinuedpotassium chloride 20 mEq, 15 mL, Route: NJ, Drug form: LIQ, PRN, Dosing Weight 64.682, kg, PRN Abnormal Lab Result, For NON-ICU Patients Only, Start date: 08/22/16 4:54:00 CDT , Duration: 30 day, Stop date: 09/21/16 4:53:00 CDT Notes: (Same as: Potassium Chloride) Start Date: 08/22/16 Stop Date: 08/23/16 Status: Discontinuedpotassium phosphate + sodium chloride 0.9% INJ 250 mL 30 mmol, 10 mL, Route: IVPB, PRN, Dosing Weight 64.682, kg, PRN Abnormal Lab Result, For NON-ICU Patients Only., Start date: 08/22/16 4:54:00 CDT, Duration: 30 day, Stop date: 09/21/16 4:53:00 CDT Notes: (Same as: K Phosphate.) 1 mMol phoshate has 1.47 mEq potassium Infuse over 4 hours Start Date: 08/22/16 Stop Date: 08/23/16 Status: Discontinuedpotassium phosphate + sodium chloride 0.9% INJ 250 mL 15 mmol, 5 mL, Route: IVPB, PRN, Dosing Weight 64.682, kg, PRN Abnormal Lab Result, For NON-ICU Patients Only., Start date: 08/22/16 4:54:00 CDT, Duration: 30 day, Stop date: 09/21/16 4:53:00 CDT Notes: (Same as: K Phosphate.) 1 mMol phoshate has 1.47 mEq potassium Infuse over 4 hours Start Date: 08/22/16 Stop Date: 08/23/16 Status: Discontinuedpotassium phosphate-sodium phosphate 250 mg-278 mg-164 mg oral powder 2 pkt, Route: PO, Drug Form: PDR/REC, Dosing Weight 64.682, kg, PRN, PRN Abnormal Lab Result, For NON-ICU Patients Only, Start date: 08/22/16 4:54:00 CDT , Duration: 30 day, Stop date: 09/21/16 4:53:00 CDT Notes: Same as: Phos-NakMix 1 packet with 75 mL water or juice. Each packet has 160mg of sodium, 280mg of potassium, and 250mg of phosphorusNon-Formulary Item Start Date: 08/22/16 Stop Date: 08/23/16 Status: DiscontinuedRocephin + sodium chloride 0.9% INJ 100 mL 1 gm, Route: IVPB, ONCE, Dosing Weight 64.682, kg, Priority: STAT, Start date: 08/21/16 2:10:00 CDT,Stop date: 08/21/16 2:10:00 CDT Notes: (Same As: Rocephin).Use with 100 mL NS and infuse over 30 min MEDICATION WASTE Product Size: 1000 mgProduct Wasted: ___ mg Start Date: 08/21/16 Stop Date: 08/21/16 Status: DiscontinuedSaline Flush 0.9% 10 mL, Route: IVP, Drug Form: INJ, Dosing Weight 64.682, kg, PRN, PRN Line Flush , Start date: 08/21/16 1:20:00 CDT, Duration: 30 day, Stop date: 09/20/16 1:19: 00 CDT Notes: Same as: BD Posiflush Sterile Start Date: 08/21/16 Stop Date: 08/23/16 Status: DiscontinuedSodium Chloride 0.9% (Bolus) IV 1,000 mL, 1,000 ml/hr, Infuse Over: 1 hr, Route: IV, 1,000, Drug form: INJ, Q1H , Priority: STAT, Dosing Weight 64.682 kg, Start date: 08/21/16 8:06:00 CDT, Duration: 4 doses or times, Stop date: 08/21/16 11:06:00 CDT Start Date: 08/21/16 Stop Date: 08/21/16 Status: CompletedSodium Chloride 0.9% (Bolus) IV 1,000 mL, 2,000 ml/hr, Infuse Over: 30 minutes, Route: IV, 1,000, Drug form: INJ , ONCE, Priority: STAT, Dosing Weight 64.682 kg, Start date: 08/21/16 1:20:00 CDT, Duration: 1 doses or times, Stop date:08/21/16 1:20:00 CDT Start Date: 08/21/16 Stop Date: 08/21/16 Status: Completedsodium chloride 0.9% 1000 ml INJ 1,000 mL 1,000 mL, Rate: 999 ml/hr, Infuse over: 1 hr, Route: IV, Dosing Weight 64.682 kg , Total Volume: 1,000, Start date: 08/21/16 5:23:00 CDT, Duration: 30 day, Stop date: 09/20/16 5:22:00 CDT Start Date: 08/21/16 Stop Date: 08/23/16 Status: Discontinuedsodium phosphate + sodium chloride 0.9% INJ 250 mL 30 mmol, 10 mL, Route: IVPB, PRN, Dosing Weight 64.682, kg, PRN Abnormal Lab Result, For NON-ICU Patients Only., Start date: 08/22/16 4:54:00 CDT, Duration: 30 day, Stop date: 09/21/16 4:53:00 CDT Start Date: 08/22/16 Stop Date: 08/23/16 Status: Discontinuedsodium phosphate + sodium chloride 0.9% INJ 250 mL 15 mmol, 5 mL, Route: IVPB, PRN, Dosing Weight 64.682, kg, PRN Abnormal Lab Result, For NON-ICU Patients Only., Start date: 08/22/16 4:54:00 CDT, Duration: 30 day, Stop date: 09/21/16 4:53:00 CDT Start Date: 08/22/16 Stop Date: 08/23/16 Status: DiscontinuedZofran 4 mg, 2 mL, Route: IVP, Drug form: INJ, ONCE, Dosing Weight 64.682, kg, Priority : STAT, Start date: 08/21/16 5:24:00 CDT, Stop date: 08/21/16 5:24:00 CDT Notes: (Same as: Zofran) MEDICATION WASTE Product Size: 4 mgProduct Wasted: ___ mg Start Date: 08/21/16 Stop Date: 08/21/16 Status: CompletedZofran 4 mg, 2 mL, Route: IVP, Drug form: INJ, Q4H, Dosing Weight 64.682, kg, PRN as needed for nausea/vomiting, Priority: STAT, Start date: 08/21/16 5:31:00 CDT, Duration: 30 day, Stop date: 09/20/16 5:30:00CDT Notes: (Same as: Zofran) MEDICATION WASTE Product Size: 4 mgProduct Wasted: ___ mg Start Date: 08/21/16 Stop Date: 08/23/16 Status: DiscontinuedZosyn + sodium chloride 0.9% INJ 100 mL 3.375 gm, Route: IVPB, ABXQ8H, Dosing Weight 64.682, kg, CrCl >=20 ml/min infuse over 4 hours, Start date: 08/21/16 9:00:00 CDT, Duration: 30 day, Stop date: 09/20/16 1:00:00 CDT Notes: (Same as: Zosyn)Dosing based on Piperacillin component MEDICATION WASTE Product Size: 3375 mgProduct Wasted: ___ mg Start Date: 08/21/16 Stop Date: 08/23/16 Status: Discontinued Results ELECTROLYTES Most recent to oldest [Reference Range]: 1 2 Sodium Lvl [135-145 mEq/L] 144 mEq/L 139 mEq/L (08/22/16 3:10 AM) (08/21/16 1:37 AM) Potassium Lvl [3.5-5.1 mEq/L] 3.6 mEq/L 3.3 mEq/L (08/22/16 3:10 AM) *LOW* (08/21/16 1:37 AM) Chloride Lvl [95-109 mEq/L] 111 mEq/L 105 mEq/L *HI* (08/21/16 1:37 AM) (08/22/16 3:10 AM) CO2 [24-32 mEq/L] 23 mEq/L 27 mEq/L *LOW* (08/21/16 1:37 AM) (08/22/16 3:10 AM) AGAP [10.0-20.0 mEq/L] 13.6 mEq/L 10.3 mEq/L (08/22/16 3:10 AM) (08/21/16 1:37 AM) CHEM PANEL Most recent to oldest [Reference Range]: 1 2 Creatinine Lvl [0.50-1.40 mg/dL] 0.63 mg/dL 0.88 mg/dL (08/22/16 3:10 AM) (08/21/16 1:37 AM) eGFR 130 mL/min/1.73m2 1 95 mL/min/1.73m2 2 *NA* *NA* (08/22/16 3:10 AM) (08/21/16 1:37 AM) BUN [7-22 mg/dL] 4 mg/dL 9 mg/dL *LOW* (08/21/16 1:37 AM) (08/22/16 3:10 AM) B/C Ratio [6-25] 6 10 (08/22/16 3:10 AM) (08/21/16 1:37 AM) Glucose Lvl [70-99 mg/dL] 79 mg/dL 104 mg/dL (08/22/16 3:10 AM) *HI* (08/21/16 1:37 AM) Total Protein [6.4-8.4 g/dL] 5.4 g/dL 7.1 g/dL *LOW* (08/21/16 1:37 AM) (08/22/16 3:10 AM) Albumin Lvl [3.5-5.0 g/dL] 2.5 g/dL 3.6 g/dL *LOW* (08/21/16 1:37 AM) (08/22/16 3:10 AM) Globulin [2.7-4.2 g/dL] 2.9 g/dL 3.5 g/dL (08/22/16 3:10 AM) (08/21/16 1:37 AM) A/G Ratio [0.7-1.6] 0.9 1.0 (08/22/16 3:10 AM) (08/21/16 1:37 AM) Calcium Lvl [8.5-10.5 mg/dL] 7.7 mg/dL 8.8 mg/dL *LOW* (08/21/16 1:37 AM) (08/22/16 3:10 AM) Phosphorus [2.5-4.5 mg/dL] 2.4 mg/dL *LOW* (08/22/16 3:10 AM) Magnesium Lvl [1.8-2.4 mg/dL] 1.5 mg/dL *LOW* (08/22/16 3:10 AM) ALT [0-65 unit/L] 31 unit/L 36 unit/L (08/22/16 3:10 AM) (08/21/16 1:37 AM) AST [0-37 unit/L] 22 unit/L 25 unit/L (08/22/16 3:10 AM) (08/21/16 1:37 AM) Alk Phos [39-136 unit/L] 69 unit/L 98 unit/L (08/22/16 3:10 AM) (08/21/16 1:37 AM) Bili Total [0.2-1.3 mg/dL] 1.0 mg/dL 0.7 mg/dL (08/22/16 3:10 AM) (08/21/16 1:37 AM) Lactic Acid Lvl [0.5-2.2 mMol/L] 0.6 mMol/L (08/21/16 9:33 AM) 1Result Comment: The eGFR is calculated [...] recent to oldest [Reference Range]: 1 2 S Preg [Negative] Negative *NA* (08/21/16 1:37 AM) URINE AND STOOL Most recent to oldest [Reference Range]: 1 2 UA Turbidity [Clear] Slight *ABN* (08/21/16 1:37 AM) UA Color [Yellow] Red *ABN* (08/21/16 1:37 AM) UA pH [5.0-8.0] 6.5 (08/21/16 1:37 AM) UA Spec Grav [<=1.030] 1.011 (08/21/16 1:37 AM) UA Glucose [Negative mg/dL] Negative mg/dL *NA* (08/21/16 1:37 AM) UA Blood [Negative] Large *ABN* (08/21/16 1:37 AM) UA Ketones [Negative mg/dL] Negative mg/dL *NA* (08/21/16 1:37 AM) UA Protein [Negative mg/dL] 20 mg/dL *ABN* (08/21/16 1:37 AM) UA Urobilinogen [0.1-1.0 mg/dL] <=1.0 mg/dL *NA* (08/21/16 1:37 AM) UA Bili [Negative] Negative *NA* (08/21/16 1:37 AM) UA Leuk Est [Negative] Large *ABN* (08/21/16 1:37 AM) UA Nitrite [Negative] Negative (08/21/16 1:37 AM) UA WBC [0-5 /HPF] 20 /HPF *HI* (08/21/16 1:37 AM) UA RBC [0-2 /HPF] >182 /HPF *HI* (08/21/16 1:37 AM) UA Bacteria [None Seen /HPF] Few /HPF *NA* (08/21/16 1:37 AM) UA Sq Epi [Few /LPF] Many /LPF *ABN* (08/21/16 1:37 AM) UA Amorph Lisa [None Seen /HPF] Occasional /HPF *NA* (08/21/16 1:37 AM) Lactoferrin Stool [0.00-7.24 microgram/mL] 109.70 microgram/mL 1 *NA* (08/21/16 4:31 PM) 1Result Comment: Results verified by repeat testing Baseline (normal) 0.00 - 7.24 Elevated >7.24 [...] non-inflammatory irritable bowel syndrome (IBS). Performed At: [address] [id number] Erma Justin MD Ph:[phone] Most recent to oldest [Reference Range]: 1 2 WBC [3.7-10.4 K/CMM] 6.8 K/CMM 10.0 K/CMM (08/22/16 3:10 AM) (08/21/16 1:37 AM) RBC [4.20-5.40 M/CMM] 3.55 M/CMM 4.33 M/CMM *LOW* (08/21/16 1:37 AM) (08/22/16 3:10 AM) Hgb [12.0-16.0 g/dL] 10.9 g/dL 13.1 g/dL *LOW* (08/21/16 1:37 AM) (08/22/16 3:10 AM) Hct [36.0-48.0 %] 31.7 % 38.3 % *LOW* (08/21/16 1:37 AM) (08/22/16 3:10 AM) MCV [80.0-98.0 fL] 89.3 fL 88.5 fL (08/22/16 3:10 AM) (08/21/16 1:37 AM) MCH [27.0-31.0 pg] 30.8 pg 30.4 pg (08/22/16 3:10 AM) (08/21/16 1:37 AM) MCHC [32.0-36.0 g/dL] 34.5 g/dL 34.4 g/dL (08/22/16 3:10 AM) (08/21/16 1:37 AM) RDW [11.5-14.5 %] 13.8 % 14.3 % (08/22/16 3:10 AM) (08/21/16 1:37 AM) Platelet [133-450 K/CMM] 129 K/CMM 215 K/CMM *LOW* (08/21/16 1:37 AM) (08/22/16 3:10 AM) MPV [7.4-10.4 fL] 7.2 fL 7.3 fL *LOW* *LOW* (08/22/16 3:10 AM) (08/21/16 1:37 AM) Segs [45.0-75.0 %] 68.2 % 79.5 % (08/22/16 3:10 AM) *HI* (08/21/16 1:37 AM) Lymphocytes [20.0-40.0 %] 22.9 % 14.0 % (08/22/16 3:10 AM) *LOW* (08/21/16 1:37 AM) Monocytes [2.0-12.0 %] 8.1 % 5.9 % (08/22/16 3:10 AM) (08/21/16 1:37 AM) Eosinophils [0.0-4.0 %] 0.4 % 0.2 % (08/22/16 3:10 AM) (08/21/16 1:37 AM) Basophils [0.0-1.0 %] 0.4 % 0.4 % (08/22/16 3:10 AM) (08/21/16 1:37 AM) Segs-Bands # [1.5-8.1 K/CMM] 4.6 K/CMM 7.9 K/CMM (08/22/16 3:10 AM) (08/21/16 1:37 AM) Lymphocytes # [1.0-5.5 K/CMM] 1.5 K/CMM 1.4 K/CMM (08/22/16 3:10 AM) (08/21/16 1:37 AM) Monocytes # [0.0-0.8 K/CMM] 0.5 K/CMM 0.6 K/CMM (08/22/16 3:10 AM) (08/21/16 1:37 AM) Plt Morph Normal (08/22/16 3:10 AM) PT [12.0-14.7 seconds] 16.5 seconds *HI* (08/22/16 3:10 AM) INR [0.85-1.17] 1.31 *HI* (08/22/16 3:10 AM) PTT [22.9-35.8 seconds] 36.3 seconds *HI* (08/22/16 3:10 AM) MOLECULAR DIAGNOSTIC Most recent to oldest [Reference Range]: 1 2 C difficile DNA [Negative] Negative (08/21/16 4:31 PM) Immunizations Given and Recorded Vaccine Date [...] No Assessment and Plan Extracted from: Title: Progress Note * Author: Liliana Camejo MD Date: 08/22/16 Impression and Plan 21 yo WF admitted w/ 1. colitis vs pyelo 2. sepsis 3. tobacco dependence POC: keep n.p.o., IV fluids for dehydration f/u w/ GI evaluation adjust IV abx and strict I/Os tobacco cessation consoling - recommended to have nicotine patch. Extracted from: Title: GI Consult * Author: Tony Rothman MD Date: 08/21/16 Impression and Plan Patient with possible colitis Check stool studies Continue IV abx Clear liquids diet Pain control If stools are negative complete course of therapy with antibiotics with plan of converting orals once tolerating diet Plan for possible colonoscopy as an outpatient
--- OUTSIDE RECORDS SUMMARY | 2018-08-25 06:38 | XMS REPORT | Summary of Care ---
:1995 Author Organization [facility] Address [address] [place] [id number]- Encounter HQ Mike_loreta(FIN) [id number] Date(s): 08/23/16 - 08/23/[address] [address]- Discharge Disposition: Hospice-Home Attending Physician: Itz Morse MD Vital Signs Most recent to oldest [Reference Range]: 1 2 Height 162.56 cm (08/23/16 2:01 AM) Blood Pressure [90-140/60-90 mmHg] 127/60 mmHg 120/76 mmHg (08/23/16 2:15 AM) (08/23/16 2:01 AM) Respiratory Rate [14-20 BRMIN] 13 BRMIN 16 BRMIN *LOW* (08/23/16 2:01 AM) (08/23/16 2:15 AM) Peripheral Pulse Rate [60-100 bpm] 59 bpm *LOW* (08/23/16 2:01 AM) Weight 65.909 kg (08/23/16 2:01 AM) Body Mass Index 24.94 m2 (08/23/16 2:01 AM) Problem List Condition Effective Dates Status [...]
--- OUTSIDE RECORDS SUMMARY | 2018-08-25 06:39 | XMS REPORT | Summary of Care ---
:1995 Author Organization [facility] Address [address] [place] [id number]- Encounter HQ Mike_[email or web address](FIN) [phone] Date(s): 03/20/17 - 03/20/[address] [id number]- Discharge Diagnosis: Abdominal pain during in second trimester Discharge Diagnosis: 26 weeks gestation of Discharge Disposition: Home or Self Care Attending Physician: Andrew Riley MD Admitting Physician: Andrew Riley MD Vital Signs Most recent to oldest [Reference Range]: 1 2 Height 160.02 cm 160.02 cm (03/20/17 9:40 PM) (03/20/17 9:31 PM) Temperature Oral [96.4-99.1 DegF] 98.3 DegF (03/20/17 9:40 PM) Blood Pressure [90-140/60-90 mmHg] 123/55 mmHg (03/20/17 9:40 PM) Respiratory Rate [14-20 BRMIN] 18 BRMIN (03/20/17 9:40 PM) Peripheral Pulse Rate [60-100 bpm] 85 bpm (03/20/17 9:40 PM) Weight 70.455 kg 70.455 kg (03/20/17 9:40 PM) (03/20/17 9:31 PM) Body Mass Index 27.51 m2 27.51 m2 (03/20/17 9:40 PM) (03/20/17 9:31 PM) Problem List Condition Effective Dates Status Health Status Informant Depression(Confirmed) Resolved Infectious disease in mother Active complicating , childbirth AND/OR puerperium(Confirmed) Kidney stone(Confirmed) 2014 Resolved (Confirmed) 02/13/16 - 8/6/16 8:46 AM Resolved Tobacco use(Confirmed) Active Allergies, Adverse Reactions, Alerts Substance Reaction Severity Status acetaminophen1 Active 1itching Medications No data available for this section Results URINE AND STOOL Most recent to oldest [Reference Range]: 1 UA Turbidity [Clear] Clear (03/20/17 10:16 PM) UA Color [Yellow] Yellow *NA* (03/20/17 10:16 PM) UA pH [5.0-8.0] 7.0 (03/20/17 10:16 PM) UA Spec Grav [<=1.030] 1.010 (03/20/17 10:16 PM) UA Glucose [Negative] Negative (03/20/17 10:16 PM) UA Blood [Negative] Negative (03/20/17 10:16 PM) UA Ketones [Negative] Negative *NA* (03/20/17 10:16 PM) UA Protein [Negative] Negative (03/20/17 10:16 PM) UA Urobilinogen [0.1-1.0 EU/dL] 0.2 EU/dL (03/20/17 10:16 PM) UA Bili [Negative] Negative *NA* (03/20/17 10:16 PM) UA Leuk Est [Negative] Small *ABN* (03/20/17 10:16 PM) UA Nitrite [Negative] Negative (03/20/17 10:16 PM) UA WBC [0-5 /HPF] 6-10 /HPF *ABN* (03/20/17 10:16 PM) UA RBC [0-2 /HPF] 0-2 /HPF (03/20/17 10:16 PM) UA Bacteria [None Seen] None Seen (03/20/17 10:16 PM) UA Sq Epi [Few /LPF] Many /LPF *ABN* (03/20/17 10:16 PM) UA CaOx Lisa [None Seen /HPF] Occasional /HPF (03/20/17 10:16 PM) Micro? Performed (03/20/17 10:16 PM) Immunizations Given and Recorded Vaccine Date Status Refusal Reason influenza virus vaccine, inactivated 02/14/16 Given Procedures Procedure Date Related Diagnosis Body Site Stent placement Social History Social History Type Response Substance Abuse Use: None. Alcohol Never Smoking Status Current every day smoker; Lives with someone who smokes; Cigarette Smoking Last 365 Days Yes; Reg Smoking Cessation Counseling No Assessment and Plan No data available for this section
--- OUTSIDE RECORDS SUMMARY | 2018-08-25 06:39 | XMS REPORT | Summary of Care ---
:1995 Author Organization [facility] Address [address] [place] [address]- Encounter HQ Shakirr_loreta(FIN) [id number] Date(s): 02/02/17 - 02/03/[address] [address]- Discharge Diagnosis: Back pain during in second trimester Discharge Disposition: Home or Self Care Attending Physician: Rosa Nelson MD Vital Signs Most recent to oldest 1 2 3 [Reference Range]: Height 160.02 cm 160.02 cm 160.02 cm (02/02/17 10:30 PM) (02/02/17 10:25 PM) (02/02/17 9:41 PM) Temperature Oral [96.4-99.1 98.8 DegF DegF] (02/02/17 9:41 PM) Blood Pressure [90-140/60-90 90/55 mmHg 115/61 mmHg 112/75 mmHg mmHg] (02/03/17 2:45 AM) (02/02/17 10:30 PM) (02/02/17 9:41 PM) Respiratory Rate [14-20 16 BRMIN 22 BRMIN 12 BRMIN BRMIN] (02/03/17 2:45 AM) *HI* *LOW* (02/02/17 10:30 PM) (02/02/17 9:41 PM) Peripheral Pulse Rate [60-100 84 bpm 94 bpm bpm] (02/02/17 10:30 PM) (02/02/17 9:41 PM) Weight 65.909 kg 65.909 kg 65.909 kg (02/02/17 10:30 PM) (02/02/17 10:25 PM) (02/02/17 9:41 PM) Body Mass Index 25.74 m2 25.74 m2 25.74 m2 (02/02/17 10:30 PM) (02/02/17 10:25 PM) (02/02/17 9:41 PM) Problem List Condition Effective Dates Status Health Status Informant Depression(Confirmed) Resolved Infectious disease in mother Active complicating , childbirth AND/OR puerperium(Confirmed) Kidney stone(Confirmed) 2014 Resolved (Confirmed) 02/13/16 - 06/23/16 8:46 AM Resolved Tobacco use(Confirmed) Active Allergies, Adverse Reactions, Alerts Substance Reaction Severity Status acetaminophen1 Active 1itching Medications D5W in Lactated Ringers 1,000 mL 1,000 mL, Rate: 125 ml/hr, Infuse over: 8 hr, Route: IV, Dosing Weight 65.909 kg , Total Volume: 1,000, Start date: 02/02/17 22:48:00 CDT, Duration: 30 day, Stop date: 03/04/17 22:47:00 CDT Start Date: 02/02/17 Stop Date: 02/03/17 Status: Discontinuedmeperidine 12.5 mg, 0.25 mL, Route: IVP, Drug form: INJ, ONCE, Dosing Weight 65.909, kg, Priority: STAT, Start date: 02/03/17 0:12:00 CDT, Stop date: 02/03/17 0:12:00 CDT Notes: (Same as: Demerol) "Use Precaution in Elderly, Seizure disorders, and Renal impairment" Start Date: 02/03/17 Stop Date: 02/03/17 Status: Completedondansetron 4 mg, 2 mL, Route: IVP, Drug form: INJ, ONCE, Dosing Weight 65.909, kg, Priority : STAT, Start date: 02/02/17 22:48:00 CDT, Stop date: 02/02/17 22:48:00 CDT Notes: (Same as: April) MEDICATION WASTE Product Size: 4 mgProduct Wasted: ___ mg Start Date: 02/02/17 Stop Date: 02/02/17 Status: Completedpromethazine + sodium chloride 0.9% INJ 50 mL 12.5 mg, 0.5 mL, Route: IVPB, ONCE, Dosing Weight 65.909, kg, Priority: STAT, Start date: 02/03/17 0:48:00 CDT, Stop date: 02/03/17 0:48:00 CDT Notes: Do not give IV push. (Same as: Phenergan) Start Date: 02/03/17 Stop Date: 02/03/17 Status: Completed Results ELECTROLYTES Most recent to oldest [Reference Range]: 1 Sodium Lvl [135-145 mEq/L] 143 mEq/L (02/02/17 11:14 PM) Potassium Lvl [3.5-5.1 mEq/L] 3.1 mEq/L *LOW* (02/02/17 11:14 PM) Chloride Lvl [95-109 mEq/L] 109 mEq/L (02/02/17 11:14 PM) CO2 [24-32 mEq/L] 24 mEq/L (02/02/17 11:14 PM) AGAP [10.0-20.0 mEq/L] 13.1 mEq/L (02/02/17 11:14 PM) CHEM PANEL Most recent to oldest [Reference Range]: 1 Creatinine Lvl [0.50-1.40 mg/dL] 0.44 mg/dL *LOW* (02/02/17 11:14 PM) eGFR 146 mL/min/1.73m2 1 *NA* (02/02/17 11:14 PM) BUN [7-22 mg/dL] 3 mg/dL *LOW* (02/02/17 11:14 PM) B/C Ratio [6-25] 7 (02/02/17 11:14 PM) Glucose Lvl [70-99 mg/dL] 147 mg/dL *HI* (02/02/17 11:14 PM) Total Protein [6.4-8.4 g/dL] 6.1 g/dL *LOW* (02/02/17 11:14 PM) Albumin Lvl [3.5-5.0 g/dL] 2.9 g/dL *LOW* (02/02/17 11:14 PM) Globulin [2.7-4.2 g/dL] 3.2 g/dL (02/02/17 11:14 PM) A/G Ratio [0.7-1.6] 0.9 (02/02/17 11:14 PM) Calcium Lvl [8.5-10.5 mg/dL] 7.7 mg/dL *LOW* (02/02/17 11:14 PM) ALT [0-65 unit/L] 12 unit/L (02/02/17 11:14 PM) AST [0-37 unit/L] 12 unit/L (02/02/17 11:14 PM) Alk Phos [39-136 unit/L] 59 unit/L (02/02/17 11:14 PM) Bili Total [0.2-1.3 mg/dL] 0.2 mg/dL (02/02/17 11:14 PM) 1Result Comment: The eGFR is calculated [...] 1 U Amph Scr [Negative] Negative *NA* (02/02/17 11:14 PM) U Jeannie Scr [Negative] Negative *NA* (02/02/17 11:14 PM) U Benzodia Scr [Negative] Negative *NA* (02/02/17 11:14 PM) U Cocaine Scr [Negative] Negative *NA* (02/02/17 11:14 PM) U Opiate Scr [Negative] Negative *NA* (02/02/17 11:14 PM) U Phencyc Scr [Negative] Negative *NA* (02/02/17 11:14 PM) U Cannab Scr [Negative] Negative *NA* (02/02/17 11:14 PM) UDS Note See Note *NA* (02/02/17 11:14 PM) URINE AND STOOL Most recent to oldest [Reference Range]: 1 UA Turbidity [Clear] Slight *ABN* (02/02/17 11:14 PM) UA Color [Yellow] Light Yellow *NA* (02/02/17 11:14 PM) UA pH [5.0-8.0] 7.0 (02/02/17 11:14 PM) UA Spec Grav [<=1.030] 1.005 (02/02/17 11:14 PM) UA Glucose [Negative mg/dL] Negative mg/dL *NA* (02/02/17 11:14 PM) UA Blood [Negative] Negative (02/02/17 11:14 PM) UA Ketones [Negative mg/dL] Negative mg/dL *NA* (02/02/17 11:14 PM) UA Protein [Negative mg/dL] Negative mg/dL (02/02/17 11:14 PM) UA Urobilinogen [0.1-1.0 mg/dL] <=1.0 mg/dL *NA* (02/02/17 11:14 PM) UA Bili [Negative] Negative *NA* (02/02/17 11:14 PM) UA Leuk Est [Negative] Small *ABN* (02/02/17 11:14 PM) UA Nitrite [Negative] Negative (02/02/17 11:14 PM) UA WBC [0-5 /HPF] 2 /HPF (02/02/17 11:14 PM) UA RBC [0-2 /HPF] <1 /HPF (02/02/17 11:14 PM) UA Sq Epi [Few /LPF] Many /LPF *ABN* (02/02/17 11:14 PM) UA Mucus [None Seen /LPF] Few /LPF *NA* (02/02/17 11:14 PM) HEMATOLOGY Most recent to oldest [Reference Range]: 1 WBC [3.7-10.4 K/CMM] 8.2 K/CMM (02/02/17 11:14 PM) RBC [4.20-5.40 M/CMM] 3.33 M/CMM *LOW* (02/02/17 11:14 PM) Hgb [12.0-16.0 g/dL] 10.4 g/dL *LOW* (02/02/17 11:14 PM) Hct [36.0-48.0 %] 30.1 % *LOW* (02/02/17 11:14 PM) MCV [80.0-98.0 fL] 90.4 fL (02/02/17 11:14 PM) MCH [27.0-31.0 pg] 31.2 pg *HI* (02/02/17 11:14 PM) MCHC [32.0-36.0 g/dL] 34.5 g/dL (02/02/17 11:14 PM) RDW [11.5-14.5 %] 14.3 % (02/02/17 11:14 PM) Platelet [133-450 K/CMM] 214 K/CMM (02/02/17 11:14 PM) MPV [7.4-10.4 fL] 7.3 fL *LOW* (02/02/17 11:14 PM) Segs [45.0-75.0 %] 59.5 % (02/02/17 11:14 PM) Lymphocytes [20.0-40.0 %] 33.5 % (02/02/17 11:14 PM) Monocytes [2.0-12.0 %] 5.7 % (02/02/17 11:14 PM) Eosinophils [0.0-4.0 %] 0.9 % (02/02/17 11:14 PM) Basophils [0.0-1.0 %] 0.4 % (02/02/17 11:14 PM) Segs-Bands # [1.5-8.1 K/CMM] 4.9 K/CMM (02/02/17 11:14 PM) Lymphocytes # [1.0-5.5 K/CMM] 2.7 K/CMM (02/02/17 11:14 PM) Monocytes # [0.0-0.8 K/CMM] 0.5 K/CMM (02/02/17 11:14 PM) Eosinophils # [0.0-0.5 K/CMM] 0.1 K/CMM (02/02/17 11:14 PM) Immunizations Given and Recorded Vaccine Date Status Refusal Reason influenza virus vaccine, inactivated 02/14/16 Given Procedures Procedure Date Related Diagnosis Body Site Stent placement Social History Social History Type Response Substance Abuse Use: None. Alcohol Never Smoking Status Current every day smoker; Type: Cigarettes; Tobacco use per day : 4; Previous treatment: None; Ready to change: No; Concerns about tobacco use in household: No; Exposure to Tobacco Smoke None; Cigarette Smoking Last 365 Days No; Reg Smoking Cessation Counseling No Assessment and Plan No data available for this section
--- OUTSIDE RECORDS SUMMARY | 2018-08-25 06:39 | XMS REPORT | Summary of Care ---
:1995 Author Organization [facility] Address [address] [place] [phone]- Encounter HQ Mike_loreta(FIN) [id number] Date(s): 02/23/17 - 02/23/[address] [address]- Discharge Diagnosis: Abdominal pain in female Discharge Diagnosis: Uses marijuana Discharge Disposition: Home or Self Care Attending Physician: Marily Canales MD Vital Signs Most recent to oldest [Reference Range]: 1 2 Height 160.02 cm 160.02 cm (02/23/17 1:27 AM) (02/23/17 1:13 AM) Temperature Oral [96.4-99.1 DegF] 98.4 DegF (02/23/17 1:27 AM) Blood Pressure [90-140/60-90 mmHg] 114/55 mmHg 112/60 mmHg (02/23/17 2:25 AM) (02/23/17 1:27 AM) Respiratory Rate [14-20 BRMIN] 16 BRMIN 18 BRMIN (02/23/17 2:25 AM) (02/23/17 1:27 AM) Peripheral Pulse Rate [60-100 bpm] 99 bpm (02/23/17 1:27 AM) Weight 71.591 kg 71.591 kg (02/23/17 1:27 AM) (02/23/17 1:13 AM) Body Mass Index 27.96 m2 27.96 m2 (02/23/17 1:27 AM) (02/23/17 1:13 AM) Problem List Condition Effective Dates Status [...] over: 8 hr, Route: IV, Dosing Weight 71.591 kg , Total Volume: 1,000, Start date: 02/23/17 1:34:00 CDT, Duration: 30 day, Stop date: 03/25/17 1:33:00 CDT Start Date: 02/23/17 Stop Date: 02/23/17 Status: Discontinuedmorphine Sulfate 2 mg, 1 mL, Route: IVP, Drug form: INJ, ONCE, Dosing Weight 71.591, kg, Priority : STAT, Start date: 02/23/17 1:34:00 CDT, Stop date: 02/23/17 1:34:00 CDT Notes: (Same as:MORPhine Sulfate) Start Date: 02/23/17 Stop Date: 02/23/17 Status: Orderedondansetron 4 mg, 2 mL, Route: IVP, Drug form: INJ, ONCE, Dosing Weight 71.591, kg, Priority : STAT, Start date: 02/23/17 1:34:00 CDT, Stop date: 02/23/17 1:34:00 CDT Notes: (Same as: Zofran) MEDICATION WASTE Product Size: 4 mgProduct Wasted: ___ mg Start Date: 02/23/17 Stop Date: 02/23/17 Status: Ordered Results ELECTROLYTES Most recent to oldest [Reference Range]: 1 Sodium Lvl [135-145 mEq/L] 141 mEq/L (02/23/17 1:39 AM) Potassium Lvl [3.5-5.1 mEq/L] 3.4 mEq/L *LOW* (02/23/17 1:39 AM) Chloride Lvl [95-109 mEq/L] 110 mEq/L *HI* (02/23/17 1:39 AM) CO2 [24-32 mEq/L] 23 mEq/L *LOW* (02/23/17 1:39 AM) AGAP [10.0-20.0 mEq/L] 11.4 mEq/L (02/23/17 1:39 AM) CHEM PANEL Most recent to oldest [Reference Range]: 1 Creatinine Lvl [0.50-1.40 mg/dL] 0.52 mg/dL (02/23/17 1:39 AM) eGFR 139 mL/min/1.73m2 1 *NA* (02/23/17 1:39 AM) BUN [7-22 mg/dL] 6 mg/dL *LOW* (02/23/17 1:39 AM) B/C Ratio [6-25] 12 (02/23/17 1:39 AM) Glucose Lvl [70-99 mg/dL] 100 mg/dL *HI* (02/23/17 1:39 AM) Total Protein [6.4-8.4 g/dL] 6.3 g/dL *LOW* (02/23/17 1:39 AM) Albumin Lvl [3.5-5.0 g/dL] 3.0 g/dL *LOW* (02/23/17 1:39 AM) Globulin [2.7-4.2 g/dL] 3.3 g/dL (02/23/17 1:39 AM) A/G Ratio [0.7-1.6] 0.9 (02/23/17 1:39 AM) Calcium Lvl [8.5-10.5 mg/dL] 8.3 mg/dL *LOW* (02/23/17 1:39 AM) ALT [0-65 unit/L] 11 unit/L (02/23/17 1:39 AM) AST [0-37 unit/L] 9 unit/L (02/23/17 1:39 AM) Alk Phos [39-136 unit/L] 58 unit/L (02/23/17 1:39 AM) Bili Total [0.2-1.3 mg/dL] 0.2 mg/dL (02/23/17 1:39 AM) 1Result Comment: The eGFR is calculated [...] 1 U Amph Scr [Negative] Negative *NA* (02/23/17 1:39 AM) U Jeannie Scr [Negative] Negative *NA* (02/23/17 1:39 AM) U Benzodia Scr [Negative] Negative *NA* (02/23/17 1:39 AM) U Cocaine Scr [Negative] Negative *NA* (02/23/17 1:39 AM) U Opiate Scr [Negative] Negative *NA* (02/23/17 1:39 AM) U Phencyc Scr [Negative] Negative *NA* (02/23/17 1:39 AM) U Cannab Scr [Negative] Positive *ABN* (02/23/17 1:39 AM) UDS Note See Note (02/23/17 1:39 AM) TOXICOLOGY Most recent to oldest [Reference Range]: 1 Etoh (%) <.003 % *NA* (02/23/17 1:39 AM) Ethanol Lvl <3 mg/dL *NA* (02/23/17 1:39 AM) URINE AND STOOL Most recent to oldest [Reference Range]: 1 UA Turbidity [Clear] Slight *ABN* (02/23/17 1:39 AM) UA Color [Yellow] Yellow *NA* (02/23/17 1:39 AM) UA pH [5.0-8.0] 6.5 (02/23/17 1:39 AM) UA Spec Grav [<=1.030] 1.014 (02/23/17 1:39 AM) UA Glucose [Negative mg/dL] Negative mg/dL *NA* (02/23/17 1:39 AM) UA Blood [Negative] Negative (02/23/17 1:39 AM) UA Ketones [Negative mg/dL] Negative mg/dL *NA* (02/23/17 1:39 AM) UA Protein [Negative mg/dL] 10 mg/dL *ABN* (02/23/17 1:39 AM) UA Urobilinogen [0.1-1.0 mg/dL] <=1.0 mg/dL *NA* (02/23/17 1:39 AM) UA Bili [Negative] Negative *NA* (02/23/17 1:39 AM) UA Leuk Est [Negative] Moderate *ABN* (02/23/17 1:39 AM) UA Nitrite [Negative] Negative (02/23/17 1:39 AM) UA WBC [0-5 /HPF] 4 /HPF (02/23/17 1:39 AM) UA RBC [0-2 /HPF] 2 /HPF (02/23/17 1:39 AM) UA Sq Epi [Few /LPF] Many /LPF *ABN* (02/23/17 1:39 AM) UA Mucus [None Seen /LPF] Few /LPF *NA* (02/23/17 1:39 AM) HEMATOLOGY Most recent to oldest [Reference Range]: 1 WBC [3.7-10.4 K/CMM] 9.4 K/CMM (02/23/17 1:39 AM) RBC [4.20-5.40 M/CMM] 3.30 M/CMM *LOW* (02/23/17 1:39 AM) Hgb [12.0-16.0 g/dL] 10.5 g/dL *LOW* (02/23/17 1:39 AM) Hct [36.0-48.0 %] 29.9 % *LOW* (02/23/17 1:39 AM) MCV [80.0-98.0 fL] 90.6 fL (02/23/17 1:39 AM) MCH [27.0-31.0 pg] 31.7 pg *HI* (02/23/17 1:39 AM) MCHC [32.0-36.0 g/dL] 35.0 g/dL (02/23/17 1:39 AM) RDW [11.5-14.5 %] 13.6 % (02/23/17 1:39 AM) Platelet [133-450 K/CMM] 207 K/CMM (02/23/17 1:39 AM) MPV [7.4-10.4 fL] 7.0 fL *LOW* (02/23/17 1:39 AM) Segs [45.0-75.0 %] 58.0 % (02/23/17 1:39 AM) Bands [0.0-11.0 %] 3.0 % (02/23/17 1:39 AM) Lymphocytes [20.0-40.0 %] 29.0 % (02/23/17 1:39 AM) Atypical Lymphs [<=0.0 %] 0.0 % (02/23/17 1:39 AM) Monocytes [2.0-12.0 %] 5.0 % (02/23/17 1:39 AM) Basophils [0.0-1.0 %] 1.0 % (02/23/17 1:39 AM) Myelocytes [<=0.0 %] 4.0 % *HI* (02/23/17 1:39 AM) Segs-Bands # [1.5-8.1 K/CMM] 5.7 K/CMM (02/23/17 1:39 AM) Lymphocytes # [1.0-5.5 K/CMM] 2.7 K/CMM (02/23/17 1:39 AM) Monocytes # [0.0-0.8 K/CMM] 0.5 K/CMM (02/23/17 1:39 AM) Basophils # [0.0-0.2 K/CMM] 0.1 K/CMM (02/23/17 1:39 AM) RBC Morph Normal (02/23/17 1:39 AM) Plt Morph Normal (02/23/17 1:39 AM) Immunizations Given and Recorded Vaccine [...]
--- OUTSIDE RECORDS SUMMARY | 2018-08-25 06:39 | XMS REPORT | Summary of Care ---
:1995 Author Organization [facility] Address [address] [place] [id number]- Encounter HQ Mike_loreta(FIN) [id number] Date(s): 02/18/17 - 02/19/[address] [address]- Discharge Diagnosis: Abdominal pain during in second trimester Discharge Diagnosis: 22 weeks gestation of Discharge Disposition: Home or Self Care Attending Physician: Andrew [place] MD Vital Signs Most recent to oldest [Reference Range]: 1 2 Height 160.02 cm 160.02 cm (02/19/17 12:01 AM) (02/18/17 11:55 PM) Blood Pressure [90-140/60-90 mmHg] 108/61 mmHg (02/19/17 12:01 AM) Respiratory Rate [14-20 BRMIN] 20 BRMIN (02/19/17 12:01 AM) Peripheral Pulse Rate [60-100 bpm] 98 bpm (02/19/17 12:01 AM) Weight 65.909 kg 65.909 kg (02/19/17 12:01 AM) (02/18/17 11:55 PM) Body Mass Index 25.74 m2 25.74 m2 (02/19/17 12:01 AM) (02/18/17 11:55 PM) Problem List Condition Effective Dates Status Health Status Informant Depression(Confirmed) Resolved Infectious disease in mother Active complicating , childbirth AND/OR puerperium(Confirmed) Kidney stone(Confirmed) 2014 Resolved (Confirmed) 02/13/16 - 06/23/16 8:46 AM Resolved Tobacco use(Confirmed) Active Allergies, Adverse Reactions, Alerts Substance Reaction Severity Status acetaminophen1 Active 1itching Medications Demerol HCl 50 mg, 1 mL, Route: IM, Drug form: INJ, ONCE, Dosing Weight 65.909, kg, Priority : STAT, Start date: 02/19/17 1:14:00 CDT, Stop date: 02/19/17 1:14:00 CDT Notes: (Same as: Demerol) "Use Precaution in Elderly, Seizure disorders, and Renal impairment" Start Date: 02/19/17 Stop Date: 02/19/17 Status: CompletedPhenergan 25 mg, 1 mL, Route: IM, Drug form: INJ, ONCE, Dosing Weight 65.909, kg, Priority : STAT, Start date: 02/19/17 1:15:00 CDT, Stop date: 02/19/17 1:15:00 CDT Notes: Do not give IV push. (Same as: Phenergan) Start Date: 02/19/17 Stop Date: 02/19/17 Status: Completed Results URINE AND STOOL Most recent to oldest [Reference Range]: 1 UA Turbidity [Clear] Slight *ABN* (02/19/17 12:12 AM) UA Color [Yellow] Yellow *NA* (02/19/17 12:12 AM) UA pH [5.0-8.0] 6.5 (02/19/17 12:12 AM) UA Spec Grav [<=1.030] 1.009 (02/19/17 12:12 AM) UA Glucose [Negative mg/dL] Negative mg/dL *NA* (02/19/17 12:12 AM) UA Blood [Negative] Small *ABN* (02/19/17 12:12 AM) UA Ketones [Negative mg/dL] Negative mg/dL *NA* (02/19/17 12:12 AM) UA Protein [Negative mg/dL] Negative mg/dL (02/19/17 12:12 AM) UA Urobilinogen [0.1-1.0 mg/dL] <=1.0 mg/dL *NA* (02/19/17 12:12 AM) UA Bili [Negative] Negative *NA* (02/19/17 12:12 AM) UA Leuk Est [Negative] Small *ABN* (02/19/17 12:12 AM) UA Nitrite [Negative] Negative (02/19/17 12:12 AM) UA WBC [0-5 /HPF] 7 /HPF *HI* (02/19/17 12:12 AM) UA RBC [0-2 /HPF] 4 /HPF *HI* (02/19/17 12:12 AM) UA Bacteria [None Seen /HPF] Occasional /HPF *NA* (02/19/17 12:12 AM) UA Sq Epi [Few /LPF] Many /LPF *ABN* (02/19/17 12:12 AM) UA Mucus [None Seen /LPF] Few /LPF *NA* (02/19/17 12:12 AM) Micro? Performed *NA* (02/19/17 12:12 AM) Immunizations Given and Recorded Vaccine Date Status Refusal Reason influenza virus vaccine, inactivated 02/14/16 Given Procedures Procedure Date Related Diagnosis Body Site Stent placement Social History Social History Type Response Substance Abuse Use: None. Alcohol Never Smoking Status Current every day smoker; Type: Cigarettes; Ready to change: No ; Concerns about tobacco use in household: Yes; Lives with someone who smokes; Cigarette Smoking Last 365 Days Yes; Reg Smoking Cessation Counseling Yes1 1Instructed needs to quit smoking Assessment and Plan No data available for this section
--- OUTSIDE RECORDS SUMMARY | 2018-08-25 06:39 | XMS REPORT | Summary of Care ---
:1995 Author Organization [facility] Address [address] [place] [phone]- Encounter HQ Hermelindantr_loreta(FIN) [id number] Date(s): 02/25/17 - 02/25/[address] [address]- Discharge Diagnosis: Back pain affecting in second trimester Discharge Disposition: Home or Self Care Attending Physician: Mari Chance MD Vital Signs Most recent to oldest [Reference Range]: 1 2 Height 160.02 cm 160.02 cm (02/25/17 9:35 PM) (02/25/17 8:53 PM) Temperature Oral [96.4-99.1 DegF] 98.2 DegF (02/25/17 9:35 PM) Blood Pressure [90-140/60-90 mmHg] 128/66 mmHg (02/25/17 9:35 PM) Respiratory Rate [14-20 BRMIN] 18 BRMIN (02/25/17 9:35 PM) Peripheral Pulse Rate [60-100 bpm] 89 bpm (02/25/17 9:35 PM) Weight 71.364 kg 71.364 kg (02/25/17 9:35 PM) (02/25/17 8:53 PM) Body Mass Index 27.87 m2 27.87 m2 (02/25/17 9:35 PM) (02/25/17 8:53 PM) Problem List Condition Effective Dates Status Health Status Informant Depression(Confirmed) Resolved Infectious disease in mother Active complicating , childbirth AND/OR puerperium(Confirmed) Kidney stone(Confirmed) 2014 Resolved (Confirmed) 02/13/16 - 06/23/16 8:46 AM Resolved Tobacco use(Confirmed) Active Allergies, Adverse Reactions, Alerts Substance Reaction Severity Status acetaminophen1 Active 1itching Medications No data available for this section Results ELECTROLYTES Most recent to oldest [Reference Range]: 1 Sodium Lvl [135-145 mEq/L] 140 mEq/L (02/25/17 9:14 PM) Potassium Lvl [3.5-5.1 mEq/L] 3.8 mEq/L (02/25/17 9:14 PM) Chloride Lvl [95-109 mEq/L] 108 mEq/L (02/25/17: PM) CO2 [24-32 mEq/L] 22 mEq/L *LOW* (02/25/17: PM) AGAP [10.0-20.0 mEq/L] 13.8 mEq/L (02/25/17:14 PM) CHEM PANEL Most recent to oldest [Reference Range]: 1 Creatinine Lvl [0.50-1.40 mg/dL] 0.39 mg/dL *LOW* (02/25/17 9:14 PM) eGFR 153 mL/min/1.73m2 1 *NA* (02/25/17:14 PM) BUN [7-22 mg/dL] 8 mg/dL (02/25/17 9:14 PM) B/C Ratio [6-25] 21 (02/25/17:14 PM) Glucose Lvl [70-99 mg/dL] 90 mg/dL (02/25/17:14 PM) Total Protein [6.4-8.4 g/dL] 6.9 g/dL (02/25/17 9:14 PM) Albumin Lvl [3.5-5.0 g/dL] 3.2 g/dL *LOW* (02/25/17:14 PM) Globulin [2.7-4.2 g/dL] 3.7 g/dL (02/25/17:14 PM) A/G Ratio [0.7-1.6] 0.9 (02/25/17:14 PM) Calcium Lvl [8.5-10.5 mg/dL] 8.6 mg/dL (02/25/17 9:14 PM) ALT [0-65 unit/L] 12 unit/L (02/25/17:14 PM) AST [0-37 unit/L] 9 unit/L (02/25/17 9:14 PM) Alk Phos [39-136 unit/L] 66 unit/L (02/25/17 9:14 PM) Bili Total [0.2-1.3 mg/dL] 0.2 mg/dL (02/25/17 9:14 PM) 1Result Comment: The eGFR is calculated [...] 1 U Amph Scr [Negative] Negative *NA* (02/25/17 9:23 PM) U Jeannie Scr [Negative] Negative *NA* (02/25/17 9:23 PM) U Benzodia Scr [Negative] Negative *NA* (02/25/17 9:23 PM) U Cocaine Scr [Negative] Negative *NA* (02/25/17 9:23 PM) U Opiate Scr [Negative] Negative *NA* (02/25/17 9:23 PM) U Phencyc Scr [Negative] Negative *NA* (02/25/17 9:23 PM) U Cannab Scr [Negative] Negative *NA* (02/25/17 9:23 PM) UDS Note See Note *NA* (02/25/17 9:23 PM) URINE AND STOOL Most recent to oldest [Reference Range]: 1 UA Turbidity [Clear] Slight *ABN* (02/25/17 9:23 PM) UA Color [Yellow] Light Yellow *NA* (02/25/17 9:23 PM) UA pH [5.0-8.0] 7.0 (02/25/17 9:23 PM) UA Spec Grav [<=1.030] 1.006 (02/25/17 9:23 PM) UA Glucose [Negative mg/dL] Negative mg/dL *NA* (02/25/17 9:23 PM) UA Blood [Negative] Negative (02/25/17 9:23 PM) UA Ketones [Negative mg/dL] Negative mg/dL *NA* (02/25/17 9:23 PM) UA Protein [Negative mg/dL] Negative mg/dL (02/25/17 9:23 PM) UA Urobilinogen [0.1-1.0 mg/dL] <=1.0 mg/dL *NA* (02/25/17 9:23 PM) UA Bili [Negative] Negative *NA* (02/25/17 9:23 PM) UA Leuk Est [Negative] Negative (02/25/17 9:23 PM) UA Nitrite [Negative] Negative (02/25/17 9:23 PM) UA WBC [0-5 /HPF] 1 /HPF (02/25/17 9:23 PM) UA RBC [0-2 /HPF] <1 /HPF (02/25/17 9:23 PM) UA Sq Epi None Seen *NA* (02/25/17 9:23 PM) UA Mucus [None Seen /LPF] Few /LPF *NA* (02/25/17 9:23 PM) HEMATOLOGY Most recent to oldest [Reference Range]: 1 WBC [3.7-10.4 K/CMM] 9.5 K/CMM (02/25/17 9:14 PM) RBC [4.20-5.40 M/CMM] 3.57 M/CMM *LOW* (02/25/17 9:14 PM) Hgb [12.0-16.0 g/dL] 11.2 g/dL *LOW* (02/25/17 9:14 PM) Hct [36.0-48.0 %] 32.1 % *LOW* (02/25/17 9:14 PM) MCV [80.0-98.0 fL] 89.8 fL (02/25/17 9:14 PM) MCH [27.0-31.0 pg] 31.4 pg *HI* (02/25/17 9:14 PM) MCHC [32.0-36.0 g/dL] 35.0 g/dL (02/25/17 9:14 PM) RDW [11.5-14.5 %] 13.3 % (02/25/17 9:14 PM) Platelet [133-450 K/CMM] 254 K/CMM (02/25/17 9:14 PM) MPV [7.4-10.4 fL] 7.4 fL (02/25/17 9:14 PM) Segs [45.0-75.0 %] 65.4 % (02/25/17 9:14 PM) Lymphocytes [20.0-40.0 %] 26.9 % (02/25/17 9:14 PM) Monocytes [2.0-12.0 %] 6.6 % (02/25/17 9:14 PM) Eosinophils [0.0-4.0 %] 0.7 % (02/25/17 9:14 PM) Basophils [0.0-1.0 %] 0.4 % (02/25/17 9:14 PM) Segs-Bands # [1.5-8.1 K/CMM] 6.2 K/CMM (02/25/17 9:14 PM) Lymphocytes # [1.0-5.5 K/CMM] 2.6 K/CMM (02/25/17 9:14 PM) Monocytes # [0.0-0.8 K/CMM] 0.6 K/CMM (02/25/17 9:14 PM) Eosinophils # [0.0-0.5 K/CMM] 0.1 K/CMM (02/25/17 9:14 PM) Immunizations Given and Recorded Vaccine Date Status Refusal Reason influenza virus vaccine, inactivated 02/14/16 Given Procedures Procedure Date Related Diagnosis Body Site Stent placement Social History Social History Type Response Substance Abuse Use: None. Alcohol Never Smoking Status Current every day smoker; Type: Cigarettes; Ready to change: No ; Lives with someone who smokes; Cigarette Smoking Last 365 Days Yes; Reg Smoking Cessation Counseling No Assessment and Plan No data available for this section
[2018-08-25 07:26] LABS: Urine Blood NEGATIVE (NEG); Urine Glucose NEGATIVE (NEG); Urine Protein NEGATIVE (NEG); Urine Specific Gravity 1.025 (1.005-1.030); Urine pH 6.5 (5.0-7.0)
[2018-08-25 07:36] LABS: Absolute Lymphocytes (CBC) 1.4 K/uL (0.7-4.9); Absolute Monocytes 0.5 K/uL (0.1-1.3); Absolute Neutrophil 3.6 K/uL (1.8-8.0); Basophils % 0.6 % (0-1.3); Eosinophils % 0.7 % (0-4.4); Hematocrit 32.9 % (36.0-45.0); Lymphocytes % 25.7 % (15.3-44.8); MCH 26.3 pg (27.0-35.0); MPV 7.2 fL (7.6-11.3); Monocytes % 8.4 % (3.3-12.3); RBC Red Blood Cell Count 4.16 M/uL (3.86-4.86)
[2018-08-25 07:47] LABS: Urine Bacteria >50 /HPF (<20); Urine Culture Reflex Order REFLEXED; Urine Mucus LIGHT /HPF (NONE SEEN); Urine RBC <5 /HPF (NONE SEEN)
[2018-08-25 07:51] LABS: BUN Blood Urea Nitrogen 11 mg/dL (7-18); Bicarbonate 28 mmol/L (21-32); Glucose Level 91 mg/dL (74-106); Potassium 3.9 mmol/L (3.5-5.1); Sodium Level 142 mmol/L (136-145)
--- NOTE | 2018-08-25 07:54 | EDPHYS ---
Physician Documentation [facility] Name: Cassidy France Age: 23 yrs Sex: Female : 1995 Arrival Date: 08/25/2018 Time: 05:56 Bed 19 Private MD: ED Physician Shreyas Ayala HPI: 08/25 06:26 This 23 yrs old Female presents to ER via Ambulatory with complaints of kb Vomiting, Flank Pain. 06:26 The patient complains of pain in the right flank. The pain does not radiate. Onset: The kb symptoms/episode began/occurred at 02:00. Modifying factors: The symptoms are alleviated by nothing. the symptoms are aggravated by palpation/percussion. Associated signs and symptoms: Pertinent positives: dysuria, nausea, vomiting, Pertinent negatives: diarrhea, dizziness, fever, urinary frequency, headache, hematuria, pain radiating to the lower extremities. Severity of pain: At its worst the pain was moderate in the emergency department the pain is unchanged. The patient has experienced similar episodes in the past. The patient has not recently seen a physician. 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 - Social history:: Smoking status: Patient uses tobacco products, smokes one pack cigarettes per day. - Ebola Screening: : No symptoms or risks identified at this time. ROS: 06:25 Constitutional: Negative for fever, chills, and weight loss, Cardiovascular: Negative kb for chest pain, palpitations, and edema, Respiratory: Negative for shortness of breath, cough, wheezing, and pleuritic chest pain, MS/Extremity: Negative for injury and deformity, Skin: Negative for injury, rash, and discoloration, Neuro: Negative for headache, weakness, numbness, tingling, and seizure. 06:25 Abdomen/GI: Positive for nausea and vomiting, Negative for abdominal pain, diarrhea. 06:25 : Positive for flank pain, burning with urination. Exam: 06:25 Constitutional: This is a well developed, well nourished patient who is awake, alert, kb and in no acute distress. Head/Face: Normocephalic, atraumatic. Chest/axilla: Normal chest wall appearance and motion. Nontender with no deformity. No lesions are appreciated. Cardiovascular: Regular rate and rhythm with a normal S1 and S2. No gallops, murmurs, or rubs. Normal PMI, no JVD. No pulse deficits. Respiratory: Lungs have equal breath sounds bilaterally, clear to auscultation and percussion. No rales, rhonchi or wheezes noted. No increased work of breathing, no retractions or nasal flaring. Abdomen/GI: Soft, non-tender, with normal bowel sounds. No distension or tympany. No guarding or rebound. No evidence of tenderness throughout. Skin: Warm, dry with normal turgor. Normal color with no rashes, no lesions, and no evidence of cellulitis. MS/ Extremity: Pulses equal, no cyanosis. Neurovascular intact. Full, normal range of motion. Neuro: Awake and alert, GCS 15, oriented to person, place, time, and situation. Cranial nerves II-XII grossly intact. Motor strength 5/5 in all extremities. Sensory grossly intact. Cerebellar exam normal. Normal gait. 06:25 Back: CVA tenderness, that is mild, that is moderate, is noted on the right. Vital Signs: 06:23 BP 120 / 75; Pulse 100; Resp 18; Temp 98.9(O); Pulse Ox 100% on R/A; Weight 55.34 kg ak1 (R); Height 5 ft. 3 in. (160.02 cm) (R); Pain 6/10; 07:20 BP 109 / 72; Pulse 93; Resp 16 S; Pulse Ox 99% on R/A; jl7 06:23 Body Mass Index 21.61 (55.34 kg, 160.02 cm) ak1 MDM: 06:04 Patient medically screened. kb 06:24 Patient medically screened. kb 06:24 Data reviewed: vital signs, nurses notes. Data interpreted: Pulse oximetry: on room air kb is 100 %. Interpretation: normal. 07:51 ED course: Pt informed the nurse that she did not want to wait for results and that we kb could just call her if something came back. Pt left room without telling anyone and departed ER. . 08/25 06:24 Order name: CBC with Diff; Complete Time: 07:40 kb 08/25 06:24 Order name: Basic Metabolic Panel; Complete Time: 07:53 kb 08/25 06:45 Order name: Urine Microscopic Only; Complete Time: 07:53 kb 08/25 06:47 Order name: Urine Dipstick--Ancillary (enter results); Complete Time: 07:31 cc 08/25 06:47 Order name: Urine --Ancillary (enter results); Complete Time: 07:31 cc 08/25 07:48 Order name: Urine Culture EDNH 08/25 06:24 Order name: Urine Dipstick-Ancillary (obtain specimen); Complete Time: 06:45 kb 08/25 06:24 Order name: Urine Test (obtain specimen); Complete Time: 06:44 kb 08/25 06:24 Order name: IV Start; Complete Time: 07:03 kb 08/25 06:45 Order name: CT Stone Protocol; Complete Time: 08:25 kb 08/25 07:16 Order name: Labs - recollect needed: CBC/Basic; Complete Time: 07:38 iw Administered Medications: No medications were administered Disposition: 08/25/18 07:53 Patient left the facility after being seen by provider. Preliminary diagnosis are Flank pain, Urinary tract infection, site not specified. - Patient left due to (see nurse's notes). Signatures: Dispatcher [employer] EDNH Guerline Graham, WAGE AND SALARY SPECIALIST-C WAGE AND SALARY SPECIALIST-CkAdele Olsen RN JULITA Alyssa Bright RN RN ak1 Whitney Rosenthal RN RN jl7 Corrections: (The following items were deleted from the chart) 07:53 07:53 08/25/2018 07:53 Patient left the facility after being seen by provider. kb Preliminary diagnosis is Flank pain. Reason stated they are leaving due to wait time. kb 07:54 07:53 08/25/2018 07:53 Patient left the facility after being seen by provider. kb Preliminary diagnosis is Flank pain. Reason stated they are leaving due to (see nurse's notes). kb 08:01 07:54 08/25/2018 07:53 Patient left the facility after being seen by provider. jl7 Preliminary diagnosis is Flank pain; Urinary tract infection, site not specified. Reason stated they are leaving due to (see nurse's notes). kb
--- NOTE | 2018-08-25 07:54 | ER ---
Nurse's Notes [facility] Name: Cassidy France Age: 23 yrs Sex: Female : 1995 Arrival Date: 08/25/2018 Time: 05:56 Bed 19 Private MD: Diagnosis: Flank pain;Urinary tract infection, site not specified Presentation: 08/25 06:10 Note pt called, no answer in lobby. ak1 06:20 Presenting complaint: Patient states: pt c/o right flank pain with N/V. pt stated LMP ak1 07/09/18, possible . Transition of care: patient was not received from another setting of care. Onset of symptoms was August 25, 2018. Risk Assessment: Do you want to hurt yourself or someone else? Patient reports no desire to harm self or others. Initial Sepsis Screen: Does the patient meet any 2 criteria? No. Patient's initial sepsis screen is negative. Does the patient have a suspected source of infection? No. Patient's initial sepsis screen is negative. Care prior to arrival: None. 06:20 Method Of Arrival: Ambulatory ak1 06:20 Acuity: DERICK 3 ak1 Triage Assessment: 06:23 General: Appears in no apparent distress. Behavior is calm, cooperative. Pain: ak1 Complains of pain in right flank pain. EENT: No signs and/or symptoms were reported regarding the EENT system. Neuro: No deficits noted. Cardiovascular: No deficits noted. Respiratory: No deficits noted. GI: Reports nausea, vomiting. : Reports pain in right flank(s). Derm: No signs and/or symptoms reported regarding the dermatologic system. Musculoskeletal: No signs and/or symptoms reported regarding the musculoskeletal system. 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 - Social history:: Smoking status: Patient uses tobacco products, smokes one pack cigarettes per day. - Ebola Screening: : No symptoms or risks identified at this time. Screenin:27 Abuse screen: Denies threats or abuse. Denies injuries from another. Nutritional ak1 screening: No deficits noted. Tuberculosis screening: No symptoms or risk factors identified. Fall Risk None identified. Assessment: 06:27 GI: Abdomen is round non-distended. ak1 06:28 Reassessment: Patient appears in no apparent distress at this time. No changes from ak1 previously documented assessment. Patient is alert, oriented x 3, equal unlabored respirations, skin warm/dry/pink. see triage assessment. 07:35 Reassessment: Pt c/o pain the the IV site, IV removed at this time. Missed IV attempt jl7 at the left wrist, able to draw 3 mls of blood, pt states "I don't want to be stuck again." Provider notified. 07:55 Reassessment: Pt's boyfriend stated "Can you just call us with the results? She's ready jl7 to go." Provider notified. When I returned to the room the pt was gone. Provider notified. Vital Signs: 06:23 BP 120 / 75; Pulse 100; Resp 18; Temp 98.9(O); Pulse Ox 100% on R/A; Weight 55.34 kg ak1 (R); Height 5 ft. 3 in. (160.02 cm) (R); Pain 6/10; 07:20 BP 109 / 72; Pulse 93; Resp 16 S; Pulse Ox 99% on R/A; jl7 06:23 Body Mass Index 21.61 (55.34 kg, 160.02 cm) ak1 ED Course: 05:56 Patient arrived in ED. do 06:03 Guerline Graham FNP-C is PHCP. kb 06:03 Shreyas Ayala MD is Attending Physician. kb 06:20 Alyssa Bright, JULITA is Primary Nurse. ak1 06:21 Triage completed. ak1 06:23 Arm band placed on Patient placed in an exam room, on a stretcher, Patient notified of ak1 wait time. 06:27 Patient has correct armband on for positive identification. Bed in low position. Call ak1 light in reach. Side rails up X 1. Pulse ox on. NIBP on. 06:[address] via wheelchair. kw1 07:01 CT completed. Patient tolerated procedure well. Patient moved back from CT. kw1 07:03 CT Stone Protocol In Process Unspecified. EDMS 07:04 Inserted saline lock: 20 gauge in left antecubital area, using aseptic technique. ak1 ,using aseptic technique. placed by Adebayo Jimenez Blood collected. 07:25 No provider procedures requiring assistance completed. Missed attempt(s): 22 gauge in jl7 left wrist. Bleeding controlled, band aid applied, catheter tip intact. IV discontinued, intact, bleeding controlled, No redness/swelling at site. Pressure dressing applied. Administered Medications: No medications were administered Outcome: 07:25 Eloped from waiting room, after seeing physician Time discovered patient gone: August7 2017 at 07:55 07:25 Condition: stable 08:01 Patient left the ED. jl7 Addendum: 08/28/2018 10:35 Addendum: Culture Results: Positive urine culture. No further action required. Patient d m5 eloped prior to discharge. Signatures: Dispatcher [employer] EDMS Guerline Graham, AIR ROUTE TRAFFIC CONTROLLER-C AIR ROUTE TRAFFIC CONTROLLER-Margarita Birmingham, RN RN [email or web address] Alyssa Bright RN RN ak1 Fabiana Mcginnis Jahala RN RN jl7 Janeth Sánchez kw1
--- NOTE | 2018-08-25 08:13 | RAD REPORT ---
EXAM DESCRIPTION: CT - Stone Protocol - 08/25/2018 7:02 am CLINICAL HISTORY: Flank pain. FLANK PAIN COMPARISON: No comparisons TECHNIQUE: Axial images were obtained without oral or IV contrast. Lack of contrast limits solid org an and vascular assessment. The [id number] spans the entirety of the system partially obscuring uppermost abdomen and lung bases. Coronal reformatted images were obtained and reviewed. All CT scans are performed using dose optimization technique as appropriate and may include automated exposure control or mA/KV adjustment according to patient size. FINDINGS: The lower lung purvis are clear. Imaged portions of the liver and spleen show no suspicious findings on non-contrast imaging. The panc reas and adrenal glands are normal. No pathologic lymphadenopathy in the abdomen or pelvis. No urinary tract stones or obstructive uropathy. No bowel obstruction, free air, or abscess. Normal appendix noted.The uterus appears prominent size. Mild to moderate volume free fluid is seen in the pelvis. Pelvic fat anteriorly appears mildly inflam ed. No significant bony abnormality. IMPRESSION: No urinary tract stones or obstructive uropathy. Normal appendix. Inflammatory fat stranding in the anterior pelvis with mild pelvic free fluid and prominence of the g ynecologic structures. Pelvic inflammation or infection is possible. Advise clinical physical exam co rrelation.
== END 2018-08-25 08:01 | disposition left against medical advice (07) ==
LOC: ER 05:52
DX: N39.0 Urinary tract infection, site not specified (principal); F17.210 Nicotine dependence, cigarettes, uncomplicated; Z88.6 Allergy status to analgesic agent
CPT/HCPCS: 36415; 74176; 76377; 80048; 81003; 81015; 81025; 85025; 87077; 87086; 87088; 87186; 99284

== ENCOUNTER 2018-12-13 20:57 | Emergency (ER) | payer MEDICAID ==
[2018-12-13] MEDS ORDERED: NA CHLORIDE 0.9% 1,000 ML ONE (22:22)
[2018-12-13] MEDS ORDERED: ONDANSETRON 4 MG/2 ML VIAL ONE (22:22)
[2018-12-13] MEDS ORDERED: KETOROLAC 30 MG/ML INJ ONE (22:22)
[2018-12-13 22:41] LABS: Absolute Lymphocytes (CBC) 2.4 K/uL (0.7-4.9); Absolute Monocytes 0.4 K/uL (0.1-1.3); Absolute Neutrophil 3.5 K/uL (1.8-8.0); Basophils % 0.6 % (0-1.3); Eosinophils % 0.5 % (0-4.4); Hematocrit 30.5 % (36.0-45.0); Lymphocytes % 37.3 % (15.3-44.8); Monocytes % 6.5 % (3.3-12.3); RBC Red Blood Cell Count 4.05 M/uL (3.86-4.86)
[2018-12-13 22:56] LABS: BUN Blood Urea Nitrogen 10 mg/dL (7-18); Bicarbonate 28 mmol/L (21-32); Glucose Level 91 mg/dL (74-106); Lipase 130 U/L (73-393); Potassium 3.4 mmol/L (3.5-5.1); Sodium Level 140 mmol/L (136-145)
[2018-12-13 23:43] LABS: Urine Blood TRACE (NEG); Urine Glucose NEGATIVE (NEG); Urine Protein NEGATIVE (NEG); Urine pH 6.5 (5.0-7.0)
--- NOTE | 2018-12-14 00:25 | ER ---
Nurse's Notes [facility] Name: Cassidy France Age: 23 yrs Sex: Female : 1995 Arrival Date: 12/13/2018 Time: 20:59 Bed 7 Private MD: Diagnosis: Low back pain Presentation: 12/13 21:11 Presenting complaint: Patient states: "I feel pain in both of my kidneys, it goes down lp1 to my legs"; States hx of previous kidney stones; States fever at home, pain x 1 week; Denies pain with urination. Transition of care: patient was not received from another setting of care. Onset of symptoms was December 13, 2018. Risk Assessment: Do you want to hurt yourself or someone else? Patient reports no desire to harm self or others. Initial Sepsis Screen: Does the patient meet any 2 criteria? No. Patient's initial sepsis screen is negative. Does the patient have a suspected source of infection? No. Patient's initial sepsis screen is negative. Care prior to arrival: None. 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 - Social history:: Smoking status: Patient uses tobacco products, smokes one-half pack cigarettes per day. - Ebola Screening: : No symptoms or risks identified at this time. Screenin:14 Abuse screen: Denies threats or abuse. Denies injuries from another. Nutritional lp1 screening: No deficits noted. Tuberculosis screening: No symptoms or risk factors identified. Fall Risk None identified. Assessment: 22:00 General: Appears in no apparent distress. comfortable, Behavior is calm, cooperative, aa1 appropriate for age. Pain: Complains of pain in low back area Pain began 2-3 days ago. Is continuous. Neuro: Level of Consciousness is awake, alert, obeys commands, Oriented to person, place, time, situation, Moves all extremities. Full function Gait is steady. Respiratory: Airway is patent Respiratory effort is even, unlabored, Respiratory pattern is regular, symmetrical. GI: Abdomen is non-distended, Reports nausea, vomiting. : Reports pain in lower back Denies inability to void, pain with urination. EENT: No signs and/or symptoms were reported regarding the EENT system. Derm: Skin is intact, is healthy with good turgor, Skin is pink, warm \\T\\ dry. Musculoskeletal: Circulation, motion, and sensation intact. Capillary refill < 3 seconds, Range of motion: intact in all extremities. 23:00 Reassessment: Patient appears in no apparent distress at this time. Patient and/or aa1 family updated on plan of care and expected duration. Pain level reassessed. Patient is alert, oriented x 3, equal unlabored respirations, skin warm/dry/pink. Awaiting CT results. 12/14 00:07 Reassessment: Patient appears in no apparent distress at this time. Patient and/or aa1 family updated on plan of care and expected duration. Pain level reassessed. Patient is alert, oriented x 3, equal unlabored respirations, skin warm/dry/pink. Dr. Avila at bedside discussing results with pt \\T\\ significant other. 00:32 Reassessment: Patient appears in no apparent distress at this time. Patient is alert, aa1 oriented x 3, equal unlabored respirations, skin warm/dry/pink. Pt laughing and eating Skittles. Requested something to help her sleep. Discussed d/c \\T\\ f/u instructions with pt; denies questions or concerns at this time Patient states feeling better. Vital Signs: 12/13 21:12 BP 110 / 60; Pulse 98; Resp 16; Temp 97.8(O); Pulse Ox 98% on R/A; Weight 58.97 kg (R); lp1 Height 5 ft. 3 in. (160.02 cm); Pain 7/10; 22:24 BP 105 / 58; Pulse 66; Resp 16; Pulse Ox 99% on R/A; aa1 23:02 BP 93 / 50; Pulse 61; Resp 16; Pulse Ox 98% on R/A; aa1 23:57 BP 97 / 84; Pulse 65; Resp 16; Pulse Ox 99% on R/A; aa1 21:12 Body Mass Index 23.03 (58.97 kg, 160.02 cm) lp1 ED Course: 20:59 Patient arrived in ED. al2 21:12 Triage completed. lp1 21:12 Arm band placed on left wrist. lp1 21:38 Edelmira Hilton RN is Primary Nurse. aa1 21:40 David Avila MD is Attending Physician. gs 22:00 Patient has correct armband on for positive identification. Bed in low position. Call aa1 light in reach. Pulse ox on. NIBP on. 22:20 Initial lab(s) drawn, by me, sent to lab. Inserted saline lock: 20 gauge in right aa1 antecubital area, using aseptic technique. Blood collected. 22:22 CT completed. Patient moved to CT via wheelchair. Patient moved back from CT. bq 22:29 Stone Protocol In Process Unspecified. EDMS 12/14 00:32 No provider procedures requiring assistance completed. IV discontinued, intact, aa1 bleeding controlled, No redness/swelling at site. Pressure dressing applied. Administered Medications: 12/13 22:20 Drug: NS 0.9% 1000 ml Route: IV; Rate: 1 bolus; Site: right antecubital; aa1 23:00 Follow up: IV Status: Completed infusion aa1 22:20 Drug: Zofran 4 mg Route: IVP; Site: right antecubital; aa1 12/14 00:30 Follow up: Response: No adverse reaction; Nausea is decreased aa1 12/13 22:22 Drug: TORadol 15 mg Route: IVP; Site: right antecubital; aa1 23:30 Follow up: Response: No adverse reaction; Pain is decreased aa1 Outcome: 12/14 00:18 Discharge ordered by . 00:32 Discharged to home ambulatory, with significant other. aa1 00:32 Condition: good 00:32 Discharge instructions given to patient, significant other, Instructed on discharge instructions, follow up and referral plans. medication usage, Demonstrated understanding of instructions, follow-up care, medications, Prescriptions given X 2. 00:34 Patient left the ED. aa1 Signatures: Dispatcher [employer] EDTN Edelmira Hilton RN RN aa1 Jessica Potter Laura, RN RN lp1 David Avila MD MD gs Love, Angelica al2
--- NOTE | 2018-12-14 00:26 | EDPHYS ---
Physician Documentation [facility] Name: Cassidy France Age: 23 yrs Sex: Female : 1995 Arrival Date: 12/13/2018 Time: 20:59 Bed 7 Private MD: ED Physician David Avila HPI: 12/14 00:16 This 23 yrs old Female presents to ER via Ambulatory with complaints of gs KIDNEY PAIN. 00:16 The patient complains of pain in the left low back and right low back. Location: gs sacrum. Onset: The symptoms/episode began/occurred 2 week(s) ago. Modifying factors: the symptoms are aggravated by movement. Associated signs and symptoms: Pertinent negatives: urinary frequency, hematuria, numbness, incontinence. Severity of pain: At its worst the pain was moderate in the emergency department the pain is unchanged. The patient has experienced similar episodes in the past, several times. 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 - Social history:: Smoking status: Patient uses tobacco products, smokes one-half pack cigarettes per day. - Ebola Screening: : No symptoms or risks identified at this time. ROS: 12/14 00:16 All other systems are negative. gs Exam: 00:16 Head/Face: Normocephalic, atraumatic. Eyes: Pupils equal round and reactive to light, gs extra-ocular motions intact. Lids and lashes normal. Conjunctiva and sclera are non-icteric and not injected. Cornea within normal limits. Periorbital areas with no swelling, redness, or edema. ENT: Nares patent. No nasal discharge, no septal abnormalities noted. Tympanic membranes are normal and external auditory canals are clear. Oropharynx with no redness, swelling, or masses, exudates, or evidence of obstruction, uvula midline. Mucous membranes moist. Neck: Trachea midline, no thyromegaly or masses palpated, and no cervical lymphadenopathy. Supple, full range of motion without nuchal rigidity, or vertebral point tenderness. No Meningismus. Chest/axilla: Normal chest wall appearance and motion. Nontender with no deformity. No lesions are appreciated. Cardiovascular: Regular rate and rhythm with a normal S1 and S2. No gallops, murmurs, or rubs. Normal PMI, no JVD. No pulse deficits. Respiratory: Lungs have equal breath sounds bilaterally, clear to auscultation and percussion. No rales, rhonchi or wheezes noted. No increased work of breathing, no retractions or nasal flaring. Abdomen/GI: Soft, non-tender, with normal bowel sounds. No distension or tympany. No guarding or rebound. No evidence of tenderness throughout. Skin: Warm, dry with normal turgor. Normal color with no rashes, no lesions, and no evidence of cellulitis. MS/ Extremity: Pulses equal, no cyanosis. Neurovascular intact. Full, normal range of motion. Neuro: Awake and alert, GCS 15, oriented to person, place, time, and situation. Cranial nerves II-XII grossly intact. Motor strength 5/5 in all extremities. Sensory grossly intact. Cerebellar exam normal. Normal gait. 00:16 Constitutional: The patient appears alert, awake. 00:16 Back: CVA tenderness, that is mild, is noted bilaterally. Vital Signs: 12/13 21:12 BP 110 / 60; Pulse 98; Resp 16; Temp 97.8(O); Pulse Ox 98% on R/A; Weight 58.97 kg (R); lp1 Height 5 ft. 3 in. (160.02 cm); Pain 7/10; 22:24 BP 105 / 58; Pulse 66; Resp 16; Pulse Ox 99% on R/A; aa1 23:02 BP 93 / 50; Pulse 61; Resp 16; Pulse Ox 98% on R/A; aa1 23:57 BP 97 / 84; Pulse 65; Resp 16; Pulse Ox 99% on R/A; aa1 21:12 Body Mass Index 23.03 (58.97 kg, 160.02 cm) lp1 MDM: 21:52 Patient medically screened. 12/14 00:16 Differential diagnosis: nephrolithiasis, UTI. Data reviewed: vital signs, nurses notes. gs Counseling: I had a detailed discussion with the patient and/or guardian regarding: the historical points, exam findings, and any diagnostic results supporting the discharge/admit diagnosis, the need for outpatient follow up. Response to treatment: the patient's symptoms have markedly improved after treatment. Response to treatment: the patient's condition has returned to base line, and as a result, I will discharge patient. 12/13 21:51 Order name: Urine Dipstick--Ancillary (enter results); Complete Time: 23:50 [facility] [place] 12/13 21:51 Order name: Urine --Ancillary (enter results); Complete Time: 23:50 [facility] [place] 12/13 21:55 Order name: CBC with Diff; Complete Time: 23:50 12/13 21:55 Order name: Basic Metabolic Panel; Complete Time: 23:50 12/13 21:55 Order name: Lipase; Complete Time: 23:50 12/13 21:55 Order name: CT Stone Protocol 12/13 21:57 Order name: Stone Protocol EDMS Administered Medications: 12/13 22:20 Drug: NS 0.9% 1000 ml Route: IV; Rate: 1 bolus; Site: right antecubital; aa1 23:00 Follow up: IV Status: Completed infusion aa 22:20 Drug: Zofran 4 mg Route: IVP; Site: right antecubital; aa1 12/14 00:30 Follow up: Response: No adverse reaction; Nausea is decreased [facility] 12/13 22:22 Drug: TORadol 15 mg Route: IVP; Site: right antecubital; aa1 23:30 Follow up: Response: No adverse reaction; Pain is decreased aa Disposition: 12/14/18 00:18 Discharged to Home. Impression: Low back pain. - Condition is Stable. - Discharge Instructions: Back Pain, Adult. - Prescriptions for Naprosyn 500 mg Oral Tablet - take 1 tablet by ORAL route 2 times per day As needed take with food; 20 tablet. melatonin - take 1 tablet by ORAL route Every night As needed; 30 tablet. - Medication Reconciliation Form, Thank You Letter, Antibiotic Education, Prescription Opioid Use form. - Follow up: Private Physician; When: 2 - 3 days; Reason: Re-evaluation by your physician. Signatures: Dispatcher [facility] EDNJ Edelmira Hilton RN RN aa1 Nina Dunn RN RN lp1 David Avila MD MD Corrections: (The following items were deleted from the chart) 21:57 21:56 CBC with Automated Diff ordered. EDMS EDMS 12/14 00:34 00:18 12/14/2018 00:18 Discharged to Home. Impression: Low back pain. Condition is aa1 Stable. Forms are Medication Reconciliation Form, Thank You Letter, Antibiotic Education, Prescription Opioid Use. Follow up: Private Physician; When: 2 - 3 days; Reason: Re-evaluation by your physician. gs
--- NOTE | 2018-12-14 09:40 | RAD REPORT ---
EXAM DESCRIPTION: CT - Stone Protocol - 12/14/2018 6:01 am CLINICAL HISTORY: Abdominal pain. Lower abdominal pain. Urinary frequency COMPARISON: August 2018 TECHNIQUE: Computed axial tomography of the abdomen pelvis was obtained without oral or IV contrast. Lack of IV and oral contrast limits evaluation of solid organs, bowel, and vessels. Coronal reformat saba images were obtained and reviewed. Preliminary report was generated by virtual radiologic and reviewed prior to dictation All CT scans are performed using dose optimization technique as appropriate and may include automated exposure control or mA/KV adjustment according to patient size. FINDINGS: A 1 millimeter right renal calculus is present. A left renal calculus is not seen. An uret eral calculus is not noted. A bladder calculus is not present. The liver, spleen, pancreas and adrenals appear grossly normal There is no evidence of diverticulitis. The appendix appears normal IMPRESSION: 1 millimeter right renal calculus without hydronephrosis
== END 2018-12-14 00:34 | disposition home or self-care (01) ==
LOC: ER 20:57
DX: M54.5 Low back pain (principal); F17.210 Nicotine dependence, cigarettes, uncomplicated; Z88.6 Allergy status to analgesic agent; Z87.442 Personal history of urinary calculi
CPT/HCPCS: 36415; 74176; 76377; 80048; 81003; 81025; 83690; 85025; 96361; 96374; 96375; 99284; J2405; J7030

== ENCOUNTER 2020-03-05 23:30 | Emergency (ER) | payer MEDICAID ==
--- OUTSIDE RECORDS SUMMARY | 2020-03-05 23:32 | XMS REPORT | Summary of Care ---
:1995 Author Organization [facility] - [facility] Address [address] [place] [id number] Care Team Providers Name Role Phone Ingrid Chatman Primary Care Provider Reason for Visit Reason Comments Vaginal Bleeding Auth/Cert Status Reason Specialty Diagnoses / Referred By Referred To Procedures Contact Contact Emergency Medicine Adc Em ergency Dept [address] [facility] [place] [address] Fax: Encounter Details Date Type Department Care Team Description 12/04/2019 Emergency ADC-Emergency Ari Tafoya MD Vaginal bleeding Department [address] [place] [address] (Primary Dx) [address] [facility] [address] [place] [address] [place] [phone] Allergies Active Allergy Reactions Severity Noted Date Comments Acetaminophen Hives 08/26/2018 documented as of this encounter (statuses as of 12/04/2019) Medications Medication Sig Dispensed Refills Start Date End Date Status vitamin Take 1 tablet 100 tablet 3 05/08/2016 02 Discontinued w/FA (PRENATABS RX) by mouth 0 tablet daily. docusate calcium Take 1 capsule 60 capsule 1 05/08/2016 Discontinued (SURFAK) 240 mg by mouth once 0 capsule daily as needed for Constipation. ferrous sulfate 325 Take 1 tablet 60 tablet 2 05/08/201612/04 Discontinued mg (65 mg iron) by mouth 0 tablet daily. tamsulosin 0.4 mg 24 Take 1 capsule 14 capsule 0 08/30/2018 Discontinued hr capsule by mouth at 0 bedtime. ondansetron (ZOFRAN Take 1 tablet 20 tablet 0 11/09/201812/04 Discontinued ODT) 4 mg by mouth every 0 disintegrating 8 (eight) tablet hours as needed for Nausea and Vomiting (N/V). phenazopyridine 200 Take 1 tablet 9 tablet 0 11/09/201812/04 Discontinued mg tablet by mouth 3 0 (three) times daily. traMADOL (ULTRAM) 50 Take 1 tablet 12 tablet 0 11/10/201811/18 Discontinued mg tablet by mouth every 0 8 (eight) hours as needed (severe pain, alternate with ibuprofen). ibuprofen 600 mg Take 1 tablet 15 tablet 0 11/10/2018 12/04/19 2 Discontinued tablet by mouth every 0 6 (six) hours as needed for Pain (scale 1-3) or Pain (scale 4-6). documented as of this encounter (statuses as of 12/04/2019) Active Problems Problem Noted Date Need for varicella vaccine 05/08/2016 Vaginal delivery 05/07/2016 Overview: IOL at term with variable decels; ; minor bilateral labial laceration repaired Single liveborn 05/07/2016 Headache 04/06/2016 Trichomonal vaginitis during in third trimes ter 03/30/2016 Fall 03/25/2016 Lower abdominal pain 03/18/2016 Bipolar 1 disorder 11/04/2012 Overview: Seeng counselor documented as of this encounter (statuses as of 12/04/2019) Resolved Problems Problem Noted Date Resolved Date Variable heart rate decelerations, antepartum 05/06/20 16 05/08/2016 Supervision of normal first in third trimester 05/07/2016 Decreased fetus movements affecting management of mother in 03/30/2016 05/07/2016 third trimester 32 weeks gestation of 03/15/2016 05/07/20 16 Nephrolithiasis 03/14/2016 03/18/2016 documented as of this encounter (statuses as of 12/04/2019) Immunizations Name Administration Dates Next Due DTP 02/01/1998, [birth year] HIB 4 Dose Schedule 02/01/1998, [birth year] Hep B, Adol or Pedi Dosage 02/01/1998, 1995, 7 Polio (IPV/OPV) [birth year] Tdap 05/09/2016 Varicella (varivax)(chicken pox) 05/09/2016 documented as of this encounter Social History Tobacco Use Types Packs/Day Years Used Date Current Every Day Smoker Comments: 1pp X11 yrs Alcohol Use Drinks/Week oz/Week Comments No Sex Assigned at Date Recorded Not on file Job Start Date Occupation Industry Not on file Not on file Not on file Travel History Travel Start Travel End No recent travel history available. documented as of this encounter Last Filed Vital Signs Vital Sign Reading Time Taken Comments Blood Pressure 100/75 12/04/2019 3:02 AM [employer] OUT [employer] Pulse 86 12/04/2019 3:02 AM [employer] OUT [employer] Temperature 36.7 C (98.1 F) 12/04/2019 12:57 AM [employer] OUT WORK[employer] Respiratory Rate 16 12/04/2019 3:02 AM [employer] OUT WORKER Oxygen Saturation 97% 12/04/2019 3:02 AM [employer] OUT WORKER Inhaled Oxygen Concentration - - Weight 61.2 kg (135 lb) 12/04/2019 12:57 AM [employer] OUT WORKER Height 160 cm (5' 3") 12/04/2019 12:57 AM [employer] OUT WORK[employer] Body Mass Index 23.91 12/04/2019 12:57 AM [employer] OUT WORK[employer] documented in this encounter Discharge Instructions Ari Velasco MD - 12/04/2019 DIAGNOSIS Diagnoses that have been ruled out: None Diagnoses that are still under consideration: None Final diagnoses: Vaginal bleeding NO LIFE-THREATENING FINDINGS ON TODAY'S EXAM. PROCEDURES IN THE ER TODAY: Orders Placed This Encounter Procedures URINALYSIS POCT TEST CBC WITH DIFF BASIC METABOLIC PANEL (NA, K, CL, CO2, GLUCOSE, BUN, CREATININE, CA) CBC WITH DIFFERENTIAL MEDICATIONS ADMINISTERED IN THE ER TODAY: No orders of the defined types were placed in this encounter. YOUR PRESCRIPTIONS AND [id number] MEDICATION RECOMMENDATIONS: Tylenol/Motrin SPECIAL CARE INSTRUCTIONS: Follow up with PCP Return to the ED if worsening of symptoms. FOLLOW-UP RECOMMENDATIONS: RECOMMEND FOLLOW-UP WITH A PRIMARY CARE PROVIDER OR SPECIALIST IN 2-5 DAYS, ESPECIALLY IF NO IMPROVEMENT IN SYMPTOMS. TO FOLLOW-UP WITHIN THE [facility], TRY THESE OPTIONS (CLINIC APPOINTMENTS AVAILABLE ON [id number] BASIS): 1. SCHEDULE AN APPOINTMENT ONLINE AT [email or web address] 2. OR CALL THE [facility] AT OR 3. OR CALL YOUR [facility] PHYSICIAN'S OFFICE DIRECTLY IF YOU ARE ALREADY AN ESTABLISHED [facility] PATIENT. OR, YOU MAY FOLLOW-UP WITH A PROVIDER OF YOUR CHOICE, SUCH : 1. A PHYSICIAN OF YOUR CHOICE 2. [facility], . LOCATIONS IN [facility] 3. [facility], [address] [place], [place]; [phone] RETURN TO ER FOR WORSENING OF SYMPTOMS. AttachmentsThe following attachments cannot be sent through Care Everywhere. Dysfunctional Uterine Bleeding (Djiboutian)documented in this encounter Plan of Treatment Health Maintenance Due Date Last Done Comments PNEUMOCOCCAL 0-64 YEARS 2003 COMBINED SERIES (1 of 1 - PPSV23) MENINGOCOCCAL B VACCINES (1 2007 of 2 - Risk Bexsero 2-dose series) HPV VACCINES (1 - Female 2008 2-dose series) VARICELLA VACCINES (2 of 2 - 06/06/2016 05/09/2016 13+ 2-dose series) PAP SMEAR 2018 INFLUENZA VACCINE (#1) 2019 CHLAMYDIA SCREENING 11/15/2019 11/15/2018, 05/06/2016, 03/30/2016 DTaP,Tdap,and Td Vaccines (5 05/09/2026 05/09/2016, 998, - Td) 1995, Additional history exists MENINGOCOCCAL VACCINE Aged Out No longer eligible based on patient 's age to complete this topic documented as of this encounter Procedures Procedure Name Priority Date/Time Associated Comments Diagnosis CBC WITH DIFFERENTIAL STAT 12/04/2019 1:43 Vaginal bleedin g Results for this AM LINE OUT WORKER procedure are i n the results section. CBC WITH DIFFERENTIAL STAT 12/04/2019 1:43 Vaginal bleedin g Results for this AM LINE OUT WORKER procedure are i n the results section. BASIC METABOLIC PANEL STAT 12/04/2019 1:43 Vaginal bleedin g Results for this (NA, K, CL, CO2, AM LINE OUT WORKER procedure a re in GLUCOSE, BUN, the results CREATININE, CA) section. URINALYSIS STAT 12/04/2019 1:13 Vaginal bleeding Results for this AM LINE OUT WORKER procedure are i n the results section. POCT TEST KANDACE 12/04/2019 1:12 Vaginal bleeding Results for this AM LINE OUT WORKER procedure are i n the results section. NOTICE OF PRIVACY Routine 12/04/2019 12:45 PRACTICES AM LINE OUT WORKER documented in this encounter Results CBC WITH DIFFERENTIAL (12/04/2019 1:43 AM LINE OUT WORKER) Pathologist Sig nature WBC 5.56 4.30 - 11.10 [facility] 10*3/L HOSPITAL LABORATORY RBC 3.64 (L) 3.93 - 5.25 [facility] 10*6/L HOSPITAL LAB[facility] HGB 10.7 (L) 11.6 - 15.0 [facility] g/dL [facility] HCT 33.5 (L) 35.7 - 45.2 % [facility] MCV 92.0 80.6 - 95.5 fL [facility] MCH 29.4 25.9 - 32.8 pg [facility] MCHC 31.9 31.6 - 35.1 [facility] g/dL [facility] RDW-SD 44.7 39.0 - 49.9 fL [facility] RDW-CV 13.2 12.0 - 15.5 % [facility] PLT 206 166 - 358 [facility] 10*3/L [facility] MPV 9.3 (L) 9.5 - 12.9 fL [facility] NRBC/100 WBC 0.0 0.0 - 10.0 /100 [facility] WBCs [facility] NRBC x10^3 <0.01 10*3/L [facility] GRAN MAT (NEUT) % 55.8 % [facility] IMM GRAN % 1.40 % [facility] LYMPH % 34.2 % [facility] MONO % 6.3 % [facility] EOS % 1.8 % [facility] BASO % 0.5 % [facility] GRAN MAT x10^3(ANC) 3.10 1.88 - 7.09 [facility] 10*3/uL [facility] IMM GRAN x10^3 0.08 (H) 0.00 - 0.06 [facility] 10*3/uL HOSPITAL [facility] LYMPH x10^3 1.90 1.32 - 3.29 [facility] 10*3/uL [facility]ITAL [facility] MONO x10^3 0.35 0.33 - 0.92 [facility] 10*3/uL HOSPITAL [facility] EOS x10^3 0.10 0.03 - 0.39 [facility] 10*3/uL [facility] BASO x10^3 0.03 0.01 - 0.07 [facility] 10*3/uL [facility] Specimen Blood - ARM, RIGHT Performing Organization Address City/State/Zipcode Phone Number [facility] CLIA: [id number], [address] [place], [place] [address] BASIC METABOLIC PANEL (NA, K, CL, CO2, GLUCOSE, BUN, CREATININE, CA) (12/04/2019 1:43 AM LINE OUT WORKER) [facility] NA 138 135 - 145 [facility] mmol/L [facility] K 3.6 3.5 - 5.0 [facility] mmol/L [facility] CL 103 98 - 108 mmol/L [facility] CO2 TOTAL 28 23 - 31 mmol/L [facility] AGAP 7 2 - 16 [facility] BUN 11 7 - 23 mg/dL [facility] GLUCOSE 118 (H) 70 - 110 mg/dL [facility] CREATININE 0.61 0.50 - 1.04 [facility] mg/dL [facility] CALCIUM 9.0 8.6 - 10.6 [facility] mg/dL [facility] eGFR Calculation 122.6 mL/min/1.73m2 [facility] ([facility] LABORATORY [place]) eGFR Calculation 148.6 mL/min/1.73m2 [facility] () [facility] LAB[facility] Specimen Blood - ARM, RIGHT Narrative Performed At Association of Glomerular Filtration Rate (GFR) [facility] LAB[facility] and Staging of Kidney Disease* + + +- + | GFR (mL/min/1.73 m2) | With Kidney Damage | Without Kidney Damage + + +- + | >90 | Stage one | Normal + + +- + | 60-89 | Stage two | Decreased GFR + + +- + | 30-59 | Stage three | Stage three + + +- + | 15-29 | Stage four | Stage four + + +- + | <15 (or dialysis) | Stage five | Stage five + + +- + *Each stage assumes the associated GFR level has been in effect for at least three months. Stages 1 to 5, with or without kidney disease, indicate chronic kidney disease. Notes: Determination of stages one and two (with eGFR >59mL/min/1.73 m2) requires estimation of kidney damage for at least three months as defined by structural or functional abnormalities of the kidney, manifested by either: Pathological abnormalities or Markers of kidney damage (including abnormalities in the composition of the blood or urine or abnormalities in imaging tests). Performing Organization Address [facility] Phone Number [facility] CLIA: [id number], [address] [place] [address] URINALYSIS (12/04/2019 1:13 AM LINE OUT WORKER) Pathologist Sig nature APPEARANCE Clear Clear [facility] COLOR Straw (A) Yellow [facility] PH 7.0 4.8 - 8.0 [facility] SP GRAVITY 1.006 1.003 - 1.030 [facility] GLU U QUAL Normal Normal [facility] BLOOD 3+ (A) Negative [facility] KETONES Negative Negative [facility] PROTEIN Negative Negative [facility] UROBILIN Normal Normal [facility] BILIRUBIN Negative Negative [facility] NITRITE Negative Negative [facility] LEUK BALYNE Negative Negative [facility] RBC/HPF 2 0 - 3 HPF [facility] WBC/HPF 3 0 - 5 HPF [facility] BACTERIA Few (A) Negative [facility] MUCOUS Slight (A) Negative LPF [facility] SQ EPITH 1 HPF [facility] Specimen Urine - URINE, CLEAN CATCH Performing Organization Address [facility] Phone Number [facility] CLIA: [id number], [address] [place] [address] POCT TEST (12/04/2019 1:12 AM LINE OUT WORKER) Pathologist Sig nature POCT PREG Negative On board controls acceptable Present with C Line POCT PREG LOT # [id number] POCT PREG TEST DATE 06/17/2021 Specimen Urine - URINE, CLEAN CATCH documented in this encounter Visit Diagnoses Diagnosis Vaginal bleeding - Primary Other specified noninflammatory disorder of vagina documented in this encounter Insurance Payer Benefit Plan / Subscriber ID Effective Phone Address T e Group Dates PARMINDER ZURITA xxxxxxxxx 2018-Pres [address] Medic aid [place]CARE [place] [id number] MANAGED MEDICAID [place], [place]ICA[place] documented as of this encounter
--- OUTSIDE RECORDS SUMMARY | 2020-03-05 23:32 | XMS REPORT | Summary of Care ---
:1995 Author Organization [facility] - Health Address [address] [place] [address] Care Team Providers Name Role Phone Ingrid Chatman Primary Care Provider Encounter Details Date Type Department Care Team Description 12/04/2019 Orders Only [facility] Doctor Unassigned, No [address] [facility] [place] [address] [address] [place] [address] Allergies Active Allergy Reactions Severity Noted Date Comments Acetaminophen Hives 08/26/2018 documented as of this encounter (statuses as of 12/04/2019) Medications Medication Sig Dispensed Refills Start Date End Date Status vitamin w/FA Take 1 tablet by 100 tablet 3 05/08/2016 Active (PRENATABS RX) tablet mouth daily. docusate calcium Take 1 capsule 60 capsule 1 05/08/2016 Active (SURFAK) 240 mg capsule by mouth once daily as needed for Constipation. ferrous sulfate 325 mg Take 1 tablet by 60 tablet 2 05/08/2016 Active (65 mg iron) tablet mouth daily. tamsulosin 0.4 mg 24 hr Take 1 capsule 14 capsule 0 08/30/2018 Active capsule by mouth at bedtime. ondansetron (ZOFRAN Take 1 tablet by 20 tablet 0 11/09/2018 Active ODT) 4 mg mouth every 8 disintegrating tablet (eight) hours as needed for Nausea and Vomiting (N/V). phenazopyridine 200 mg Take 1 tablet by 9 tablet 0 11/09/2018 Active tablet mouth 3 (three) times daily. traMADOL (ULTRAM) 50 mg Take 1 tablet by 12 tablet 0 8 Active tablet mouth every 8 (eight) hours as needed (severe pain, alternate with ibuprofen). ibuprofen 600 mg tablet Take 1 tablet by 15 tablet 0 8 Active mouth every 6 (six) hours as needed for Pain [...] of this encounter Last Filed Vital Signs Not on filedocumented in this encounter Plan of Treatment Health Maintenance Due Date Last Done Comments PNEUMOCOCCAL 0-64 YEARS 2003 COMBINED SERIES (1 of 1 - PPSV23) MENINGOCOCCAL B VACCINES (1 2007 of 2 - Risk Bexsero 2-dose series) HPV VACCINES (1 - Female 2012 3-dose series) VARICELLA VACCINES (2 of 2 - [...] encounter Procedures Procedure Name Priority Date/Time Associated Diagnosis Comme nts CONSENT/REFUSAL FOR Routine 12/04/2019 12:45 AM RN VASCULAR DIAGNOSIS AND TREATMENT documented in this encounter Results Not on filedocumented in this encounter Insurance Payer Benefit Plan / Subscriber ID Effective Phone Address T ype Group Dates [place] [employer] [place] [employer] xxxxxxxxx 2015-Pres Medicaid HEALTH PLAN - HEALTH ent MANAGED MEDICAID PARMINDER ZURITA xxxxxxxxx 2018-Pres P [address] BOX Medic aid HEALTHCARE - [place]CARE [place] [id number] MANAGED MEDICAID [place], [place]ID [place] documented as of this encounter
[2020-03-06] MEDS ORDERED: MORPHINE 4 MG/ML SYR ONE (00:19)
[2020-03-06] MEDS ORDERED: ONDANSETRON 4 MG/2 ML VIAL ONE (00:19)
[2020-03-06 00:24] LABS: Absolute Lymphocytes (CBC) 2.3 K/uL (0.7-4.9); Basophils % 0.8 % (0-1.3); Hematocrit 32.3 % (36.0-45.0); MPV 7.9 fL (7.6-11.3); RBC Red Blood Cell Count 3.85 M/uL (3.86-4.86)
[2020-03-06 00:40] LABS: Calcium Oxalate Crystals- Ur MANY (NONE SEEN); Urine Bacteria 20-50 /HPF (<20); Urine Culture Reflex Order REFLEXED; Urine Mucus 2+ /HPF (NONE SEEN); Urine RBC <5 /HPF (NONE SEEN)
[2020-03-06 00:48] LABS: ALT/SGPT 19 U/L (12-78); AST/SGOT 14 U/L (15-37); Albumin 3.5 g/dL (3.4-5.0); Alkaline Phosphatase 71 U/L (45-117); BUN Blood Urea Nitrogen 6 mg/dL (7-18); Bicarbonate 23 mmol/L (21-32); Bilirubin Direct < 0.1 mg/dL (0-0.2); Bilirubin Total 0.1 mg/dL (0.2-1.0); Glucose Level 101 mg/dL (74-106); Lipase 218 U/L (73-393); Potassium 3.6 mmol/L (3.5-5.1); Protein, Total 6.5 g/dL (6.4-8.2); Sodium Level 146 mmol/L (136-145)
[2020-03-06] MEDS ORDERED: KETOROLAC 30 MG/ML INJ ONE (01:28)
--- NOTE | 2020-03-06 03:18 | EDPHYS ---
Physician Documentation [facility] Name: Cassidy France Age: 24 yrs Sex: Female : 1995 Arrival Date: 03/05/2020 Time: 23:31 Bed 8 Private MD: ED Physician Shreyas Ayala HPI: 03/05 23:54 This 24 yrs old Female presents to ER via Ambulatory with complaints of jmm Kidney Pain. 23:54 The patient complains of pain in the right flank. Onset: The symptoms/episode jmm began/occurred gradually, 2 week(s) ago. Modifying factors: The symptoms are alleviated by nothing. the symptoms are aggravated by nothing. Associated signs and symptoms: Pertinent negatives: dysuria, fever, hematuria, nausea, vomiting. This is a 24 year old female with a history of previous kidney stones that presents to the ED with complaints of ongoing right flank pain worsening this weekend. Denies vomiting, denies diarrhea. Denies abdominal pain. . 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 - Social history:: Smoking status: Patient reports the use of cigarette tobacco products, smokes one pack cigarettes per day. Patient/guardian denies using alcohol, street drugs. ROS: 03/05 23:54 Constitutional: Negative for fever, chills, and weight loss, Cardiovascular: Negative jmm for chest pain, palpitations, and edema, Respiratory: Negative for shortness of breath, cough, wheezing, and pleuritic chest pain. Back: Positive for flank pain. All other systems are negative. Exam: 23:54 Head/Face: atraumatic. Eyes: EOMI, no conjunctival erythema appreciated ENT: Moist jmm Mucus Membranes Neck: Trachea midline, Supple Chest/axilla: Normal chest wall appearance and motion. Cardiovascular: Regular rate and rhythm. No edema appreciated Respiratory: Normal respirations, no respiratory distress appreciated Abdomen/GI: Non distended, soft 23:54 Constitutional: The patient appears alert, awake, uncomfortable. 23:54 Back: CVA tenderness, that is moderate, is noted bilaterally. 23:54 Musculoskeletal/extremity: ROM: intact in all extremities. 23:54 Skin: Appearance: Color: normal in color. 23:54 Neuro: Orientation: is normal, Mentation: is normal, Memory: is normal. 23:54 Psych: Behavior/mood is pleasant, cooperative. Vital Signs: 23:59 BP 97 / 56; Pulse 77; Resp 19; Temp 98.3; Pulse Ox 99% ; Pain 7/10; rr5 03/06 00:04 Weight 58.97 kg; Height 5 ft. 3 in. (160.02 cm); rr5 01:27 BP 105 / 81; Pulse 71; Resp 19 S; Pulse Ox 99% on R/A; Pain 7/10; jd3 02:30 BP 106 / 58; Pulse 73; Resp 17 S; Pulse Ox 97% on R/A; Pain 5/10; jd3 04:08 BP 109 / 57; Pulse 64; Resp 17 S; Pulse Ox 98% on R/A; Pain 3/10; jd3 00:04 Body Mass Index 23.03 (58.97 kg, 160.02 cm) rr5 MDM: 03/05 23:54 Patient medically screened. [facility] 03/05 23:58 Order name: Basic Metabolic Panel; Complete Time: 00:55 [facility] 03/05 23:58 Order name: CBC with Diff; Complete Time: 00:47 [facility] 03/05 23:58 Order name: Creatinine for Radiology; Complete Time: 00:47 [facility] 03/05 23:58 Order name: Hepatic Function; Complete Time: 00:55 [facility] 03/05 23:58 Order name: Lipase; Complete Time: 00:55 [facility] 03/05 23:58 Order name: Urine Microscopic Only; Complete Time: 00:47 [facility] 03/05 23:58 Order name: IV Saline Lock; Complete Time: 00:20 [facility] 03/05 23:58 Order name: Labs collected and sent; Complete Time: 00:20 [facility] 03/05 23:58 Order name: Urine Dipstick-Ancillary (obtain specimen); Complete Time: 00:09 [facility] 03/05 23:58 Order name: CT Abd/Pelvis - IV Contrast Only; Complete Time: 19:32 [facility] 03/06 00:40 Order name: Urine Culture [facility] 03/05 23:58 Order name: Urine Test (obtain specimen); Complete Time: 00:09 martir Administered Medications: 03/06 00:21 Drug: morphine 4 mg Route: IVP; Site: left antecubital; jd3 01:20 Follow up: Response: No adverse reaction; RASS: Alert and Calm (0) jd3 00:21 Drug: Zofran (Ondansetron) 4 mg Route: IVP; Site: left antecubital; jd3 01:20 Follow up: Response: No adverse reaction jd3 01:30 Drug: TORadol 30 mg Route: IVP; Site: left antecubital; jd3 02:30 Follow up: Response: No adverse reaction; Pain is decreased jd3 Disposition: 03:18 Co-signature as Attending Physician, Shreyas Ayala MD I agree with the assessment and tw4 plan of care. Disposition: 03/06/20 03:17 Discharged to Home. Impression: Calculus of ureter, Urinary tract infection, site not specified. - Condition is Stable. - Discharge Instructions: Urinary Tract Infection, Adult, Kidney Stones, Ibgd-zw-Offk, Urinary Tract Infection, Adult, Mcpx-nv-Owuj. - Prescriptions for Ibuprofen 800 mg Oral Tablet - take 1 tablet by ORAL route every 8 hours As needed take with food; 30 tablet. Zofran 4 mg Oral Tablet - take 1 tablet by ORAL route every 12 hours As needed; 6 tablet. Macrobid 100 mg Oral Capsule - take 1 capsule by ORAL route every 12 hours for 10 days; 20 capsule. Flomax 0.4 mg Oral Capsule, Sust. Release 24 hr - take 1 capsule by ORAL route once daily 1/2 hour following the same meal each day; 30 capsule. Tramadol 50 mg Oral Tablet - take 1 tablet by ORAL route every 8 hours as needed; 12 tablet. - Medication Reconciliation Form, Thank You Letter, Antibiotic Education, Prescription Opioid Use form. - Follow up: Private Physician; When: Upon discharge from the Emergency Department; Reason: Recheck today's complaints, Continuance of care, Re-evaluation by your physician. - Problem is new. - Symptoms have improved. Signatures: Dispatcher [employer] [facility] Ran Lincoln PA PA jmm Davies, Jonathon, RN RN jd3 Wadley, Terrence, MD MD tw4 Fortunato Valerio, RN RN rr5 Corrections: (The following items were deleted from the chart) 04:13 03:17 03/06/2020 03:17 Discharged to Home. Impression: Calculus of ureter; Urinary jd3 tract infection, site not specified. Condition is Stable. Forms are Medication Reconciliation Form, Thank You Letter, Antibiotic Education, Prescription Opioid Use. Follow up: Private Physician; When: Upon discharge from the Emergency Department; Reason: Recheck today's complaints, Continuance of care, Re-evaluation by your physician. Problem is new. Symptoms have improved. tw4
--- NOTE | 2020-03-06 03:18 | ER ---
Nurse's Notes [facility] Name: Cassidy France Age: 24 yrs Sex: Female : 1995 Arrival Date: 03/05/2020 Time: 23:31 Bed 8 Private MD: Diagnosis: Calculus of ureter;Urinary tract infection, site not specified Presentation: 03/05 23:59 Chief complaint: Patient states: I am having pain on my right mid back started couple rr5 weeks,like a sharp, burning on and off pain, it became worst today. feels nauseous. denies blood and no pain when I pee. Coronavirus screen: Proceed with normal triage. Ebola Screen: Patient negative for fever greater than or equal to 101.5 degrees Fahrenheit, and additional compatible Ebola Virus Disease symptoms Patient denies exposure to infectious person. Patient denies travel to an Ebola-affected area in the 21 days before illness onset. Initial Sepsis Screen: Does the patient meet any 2 criteria? No. Patient's initial sepsis screen is negative. Does the patient have a suspected source of infection? No. Patient's initial sepsis screen is negative. Risk Assessment: Do you want to hurt yourself or someone else? Patient reports no desire to harm self or others. Onset of symptoms was February 2020. 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 - Social history:: Smoking status: Patient reports the use of cigarette tobacco products, smokes one pack cigarettes per day. Patient/guardian denies using alcohol, street drugs. Screenin:02 Abuse screen: Denies threats or abuse. Nutritional screening: No deficits noted. jd3 Tuberculosis screening: No symptoms or risk factors identified. Fall Risk Ambulatory Aid- None/Bed Rest/Nurse Assist (0 pts). Gait- Normal/Bed Rest/Wheelchair (0 pts) Mental Status- Oriented to own ability (0 pts). Total Baldwin Fall Scale indicates No Risk (0-24 pts). Assessment: 00:00 General: Appears in no apparent distress. uncomfortable, Behavior is calm, cooperative, jd3 appropriate for age. Pain: Complains of pain in right flank Quality of pain is described as sharp, shooting. Neuro: Level of Consciousness is awake, alert, obeys commands, Oriented to person, place, time, situation. Cardiovascular: Denies chest pain, Capillary refill < 3 seconds Patient's skin is warm and dry. Respiratory: Airway is patent Respiratory effort is even, unlabored, Respiratory pattern is regular, symmetrical, Denies cough, shortness of breath. GI: Abdomen is flat, non-distended, Bowel sounds present X 4 quads. Abd is soft and non tender X 4 quads. Reports nausea, Patient currently denies constipation, diarrhea, vomiting. : Denies burning with urination, urinary frequency. EENT: No signs and/or symptoms were reported regarding the EENT system. Derm: Skin is intact, Skin is dry, Skin is normal, Skin temperature is warm. Musculoskeletal: Circulation, motion, and sensation intact. Range of motion: intact in all extremities. 01:27 Reassessment: Patient appears in no apparent distress at this time. No changes from jd3 previously documented assessment. Patient and/or family updated on plan of care and expected duration. Pain level reassessed. Patient is alert, oriented x 3, equal unlabored respirations, skin warm/dry/pink. 02:30 Reassessment: Patient appears in no apparent distress at this time. Patient and/or jd3 family updated on plan of care and expected duration. Pain level reassessed. Patient is alert, oriented x 3, equal unlabored respirations, skin warm/dry/pink. Patient states feeling better. 03:30 Reassessment: Patient appears in no apparent distress at this time. No changes from jd3 previously documented assessment. Patient and/or family updated on plan of care and expected duration. Pain level reassessed. Patient is alert, oriented x 3, equal unlabored respirations, skin warm/dry/pink. 04:06 Reassessment: Patient appears in no apparent distress at this time. Patient and/or jd3 family updated on plan of care and expected duration. Pain level reassessed. Patient is alert, oriented x 3, equal unlabored respirations, skin warm/dry/pink. pt reported understanding of discharge instructions, awaiting discharge for provider fallow-up and results. Patient states feeling better. Vital Signs: 03/05 23:59 BP 97 / 56; Pulse 77; Resp 19; Temp 98.3; Pulse Ox 99% ; Pain 7/10; rr5 03/06 00:04 Weight 58.97 kg; Height 5 ft. 3 in. (160.02 cm); rr5 01:27 BP 105 / 81; Pulse 71; Resp 19 S; Pulse Ox 99% on R/A; Pain 7/10; jd3 02:30 BP 106 / 58; Pulse 73; Resp 17 S; Pulse Ox 97% on R/A; Pain 5/10; jd3 04:08 BP 109 / 57; Pulse 64; Resp 17 S; Pulse Ox 98% on R/A; Pain 3/10; jd3 00:04 Body Mass Index 23.03 (58.97 kg, 160.02 cm) rr5 ED Course: 03/05 23:31 Patient arrived in ED. cl3 23:50 Ran Lincoln PA is PHCP. jmm 23:50 Shreyas Ayala MD is Attending Physician. [facility] 03/06 00:00 Kurtis Burrows, JULITA is Primary Nurse. jd3 00:02 Triage completed. rr5 00:02 Patient has correct armband on for positive identification. Bed in low position. Call jd3 light in reach. Side rails up X 1. Pulse ox on. NIBP on. 00:03 Arm band placed on. jd3 00:12 Inserted saline lock: 20 gauge in left antecubital area, using aseptic technique. Blood ds4 collected. 00:20 Basic Metabolic Panel Sent. ds4 00:20 Lipase Sent. ds4 00:20 CBC with Diff Sent. ds4 00:20 Creatinine for Radiology Sent. ds4 00:20 Hepatic Function Sent. ds4 00:20 Urine Microscopic Only Sent. ds4 01:34 CT Abd/Pelvis - IV Contrast Only In Process Unspecified. EDMS 04:09 No provider procedures requiring assistance completed. IV discontinued, intact, jd3 bleeding controlled, No redness/swelling at site. Pressure dressing applied. Administered Medications: 00:21 Drug: morphine 4 mg Route: IVP; Site: left antecubital; jd3 01:20 Follow up: Response: No adverse reaction; RASS: Alert and Calm (0) jd3 00:21 Drug: Zofran (Ondansetron) 4 mg Route: IVP; Site: left antecubital; jd3 01:20 Follow up: Response: No adverse reaction jd3 01:30 Drug: TORadol 30 mg Route: IVP; Site: left antecubital; jd3 02:30 Follow up: Response: No adverse reaction; Pain is decreased jd3 Outcome: 03:17 Discharge ordered by . tw4 04:09 Discharged to home ambulatory, with family. jd3 04:09 Condition: stable 04:09 Discharge instructions given to patient, Instructed on discharge instructions, follow up and referral plans. medication usage, Demonstrated understanding of instructions, follow-up care, medications, Prescriptions given X 5 04:13 Patient left the ED. jd3 Signatures: Dispatcher [employer] EDMS Ran Lincoln PA PA jmm Swanson, Donovan ds4 Kurtis Burrows RN RN jd3 Shreyas Ayala MD MD tw4 Fortunato Valerio RN RN rr5 Stacy Diego cl3 Corrections: (The following items were deleted from the chart) 01:28 01:27 BP 105 / 81; Pulse 71bpm; Resp 19bpm; Spontaneous; Pulse Ox 99% RA; Pain 10/10; jd3 jd3
[2020-03-06 04:21] VITALS: TEMP 98.3
[2020-03-06 04:25] VITALS: BP 109/57; O2SAT 98
--- NOTE | 2020-03-06 11:13 | RAD REPORT ---
EXAM DESCRIPTION: CT - Abdomen Pelvis W Contrast - 03/06/2020 6:52 am CLINICAL HISTORY: FLANK PAIN COMPARISON: None. TECHNIQUE: CT ABDOMEN PELVIS WITH IV CONTRAST on 03/05/2020 11:58 PM CDT This exam was performed according to our departmental dose-optimization program, which includes autom ated exposure control, adjustment of the mA and/or kV according to patient size and/or use of iterati ve reconstruction technique. FINDINGS: Lower lungs are clear. Abdomen: The liver is normal in appearance. There is no biliary dilatation. Gallbladder is decompress ed. There is large amount of fluid in the stomach. The pancreas and spleen are normal in appearance. The adrenal glands and kidneys are unremarkable. Abdominal aorta is normal in course and caliber without aneurysm. There is no free air. There is no r etroperitoneal adenopathy. Pelvis: There is moderate amount stool throughout the colon. Urinary bladder is unremarkable. There i s no free fluid. Appendix is normal. Uterus is normal in size. Skeleton: There are no acute osseous findings. No suspicious bony lesions. IMPRESSION: Moderate gastric distention with unclear etiology. Otherwise no acute inflammatory proce ss. Electronically signed by: Anson Pina MD 03/06/2020 1:41 AM CDT Due to temporary technical issues with the PACS/Fluency reporting system, reports are being signed by the in house radiologist as a courtesy to ensure prompt reporting. The interpreting radiologist is f ully responsible for the content of the report.
== END 2020-03-06 04:13 | disposition home or self-care (01) ==
LOC: ER 23:30
DX: N20.1 Calculus of ureter (principal); N39.0 Urinary tract infection, site not specified; F17.210 Nicotine dependence, cigarettes, uncomplicated; Z88.6 Allergy status to analgesic agent; Z87.442 Personal history of urinary calculi
CPT/HCPCS: 87088; 85025; 87086; 80048; 36415; 80076; 81015; 83690; 74177; Q9967; J2405; 96374; 96375; 99284

== ENCOUNTER 2020-04-28 12:17 | Emergency (ER) | payer SELFPAY ==
--- OUTSIDE RECORDS SUMMARY | 2020-04-28 12:39 | XMS REPORT | Clinical Summary ---
:1995 Author Organization [facility] Address [address] [place] [address] Care Team Providers Name Role Phone Unavailable Primary Care Provider Unavailable Allergies Active Allergy Reactions Severity Noted Date Comments Acetaminophen 02/10/2019 Medications Not on file Active Problems Not on file Social History Tobacco Use Types Packs/Day Years Used Date Never Assessed Sex Assigned at Date Recorded Not on file Job Start Date Occupation Industry Not on file Not on file Not on file Travel History Travel Start Travel End No recent travel history available. Last Filed Vital Signs Not on file Plan of Treatment Not on file Results Not on fileafter 04/28/2019
--- OUTSIDE RECORDS SUMMARY | 2020-04-28 12:39 | XMS REPORT | Clinical Summary ---
:1995 [address] [facility] [place] [facility] Address [address] [place] [address] Care Team Providers Name Role Phone Ronald Briggs Primary Care Provider Unavailable Allergies Active Allergy Reactions Severity Noted Date Comments Acetaminophen Hives, Swelling 01/14/2017 Medications Medication Sig Dispensed Refills Start Date End Date Status vitamin Take 1 tablet by 0 Active w/vhhqpcc-ades-jxibpt mouth daily. ( PLUS) 27 mg iron- 1 mg Tab Active Problems Problem Noted Date 02/18/2017 Social History Tobacco Use Types Packs/Day Years Used Date Current Every Day Smoker Cigarettes 0.5 10 Alcohol Use Drinks/Week oz/Week Comments Yes occasionally Sex Assigned at Date Recorded Not on file Job Start Date Occupation Industry Not on file Not on file Not on file Travel History Travel Start Travel End No recent travel history available. Last Filed Vital Signs Not on file Plan of Treatment Not on file Results Not on fileafter 04/28/2019 Insurance Payer Benefit Plan / Subscriber ID Type Phone Address Group MEDICAID - MEDICAID MEDICAID [facility] xxxxxxxxx Medicaid Contracted MGD CARE Advance Directives For more information, please contact:[facility] [phone] [place], [place] [phone] Code Status Date Activated Date Inactivated Comments Full Code 02/18/2017 10:04 PM 02/19/2017 1:26 AM This code status was determined by: Patient
--- NOTE | 2020-04-28 14:11 | ER ---
Nurse's Notes [facility] Name: Cassidy France Age: 24 yrs Sex: Female : 1995 Arrival Date: 04/28/2020 Time: 12:26 Bed 15 Private MD: Diagnosis: Presentation: 04/28 12:32 Chief complaint: LLQ pain and nausea x 2 days. Report + home test, LMP March ll2019. Coronavirus screen: Proceed with normal triage. Ebola Screen: No symptoms or risks identified at this time. Initial Sepsis Screen: Does the patient meet any 2 criteria? No. Patient's initial sepsis screen is negative. Does the patient have a suspected source of infection? No. Patient's initial sepsis screen is negative. Risk Assessment: Do you want to hurt yourself or someone else? Patient reports no desire to harm self or others. Onset of symptoms was April 27, 2020. 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 - Social history:: Smoking status: Patient denies any tobacco usage or history of. Vital Signs: 12:32 BP 116 / 68; Pulse 72; Resp 16; Temp 97.2; Pulse Ox 100% ; Weight 59.87 kg; Height 5 ll1 ft. 3 in. (160.02 cm); Pain 7/10; 12:32 Body Mass Index 23.38 (59.87 kg, 160.02 cm) ll1 ED Course: 12:26 Patient arrived in ED. am2 12:29 Guerline [facility]C [facility] kb 12:29 Doroteo Lee MD is Attending Physician. kb 12:34 Triage completed. ll1 12:35 Arm band placed on. ll1 Administered Medications: No medications were administered Outcome: 14:10 Patient left the ED. hb 14:12 Patient left the ED. kb Signatures: Guerline Graham FNP-C FNP-Ckb Marycruz Romero, RN RN hb Abigail Alfaro am2 Calixto Diego, RN RN ll1
--- NOTE | 2020-04-28 14:13 | EDPHYS ---
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 - Social history:: Smoking status: Patient denies any tobacco usage or history of. Vital Signs: 12:32 BP 116 / 68; Pulse 72; Resp 16; Temp 97.2; Pulse Ox 100% ; Weight 59.87 kg; Height 5 ll1 ft. 3 in. (160.02 cm); Pain 7/10; 12:32 Body Mass Index 23.38 (59.87 kg, 160.02 cm) ll1 MDM: 14:10 Patient medically screened. kb 14:12 Medical screening is not applicable. kb 04/28 12:39 Order name: Urine Dipstick-Ancillary (obtain specimen) kb 04/28 12:39 Order name: Urine Test (obtain specimen) kb Administered Medications: No medications were administered Disposition: 04/28/20 14:10 Patient left the facility before being seen by provider. - Patient left due to wait time. Signatures: Guerline Graham, DAMIAN-C EVAPORATIVE COOLER INSTALLER-Marycruz Donis RN RN hb Calixto Diego RN RN ll1 Corrections: (The following items were deleted from the chart) 14:12 14:10 04/28/2020 14:10 Patient left the facility before being seen by provider. Reason kb stated they are leaving due to wait time. hb
[2020-04-28 14:16] VITALS: BP 116/68; TEMP 97.2; O2SAT 100
== END 2020-04-28 14:12 | disposition left against medical advice (07) ==
LOC: ER 12:17
DX: Z53.21 Procedure and treatment not carried out due to patient leaving prior to being seen by health care provider (principal)
CPT/HCPCS: 99281

== ENCOUNTER 2020-05-18 22:12 | Emergency (ER) | payer SELFPAY ==
--- OUTSIDE RECORDS SUMMARY | 2020-05-18 22:14 | XMS REPORT | Clinical Summary ---
:[address] [facility] Address [address] [place] [id number] Care Team Providers Name Role Phone Unavailable [...] Not on file Results Not on fileafter 05/18/2019
--- OUTSIDE RECORDS SUMMARY | 2020-05-18 22:14 | XMS REPORT | Clinical Summary ---
:1995 Author Organization [facility] Address [facility] [place] [address] Care Team Providers Name Role Phone Unavailable Primary Care Provider Unavailable Allergies Active Allergy Reactions Severity Noted Date Comments Acetaminophen Hives High 02/23/2017 Medications Medication Sig Dispensed Refills Start Date End Date Status traMADol (ULTRAM) 50 Take 1 tablet by 15 tablet 0 02/23/2017 Active mg tabletIndications: mouth every 6 Back pain affecting hours as needed for Pain. Active Problems Problem Noted Date Back pain affecting 02/23/2017 Social History Tobacco Use Types Packs/Day Years Used Date Never Assessed Sex Assigned at Date Recorded Not on file Job Start Date Occupation Industry Not on file Not on file Not on file Travel History Travel Start Travel End No recent travel history available. Last Filed Vital Signs Not on file Plan of Treatment Health Maintenance Due Date Last Done Comments Cervical Cancer Scrn (3 Yrs) 2018 IMM Influenza Seasonal Aug to January (>/= 19 yrs) 08/18/2020 Results Not on fileafter 05/18/2019 Insurance Payer Benefit Plan / Subscriber ID Effective Dates Phone Addre ss Type Group [facility] xxxxxxxxx 2017-Federico [phone] [address] [facility] t 0 [id number] [employer] [place] [place] [address]
--- OUTSIDE RECORDS SUMMARY | 2020-05-18 22:15 | XMS REPORT | Clinical Summary ---
:1995 Author Organization [facility] Address [address] [place] [address] Care Team Providers Name Role Phone Ronald Briggs Primary Care Provider Unavailable Allergies Active Allergy Reactions Severity Noted Date Comments Acetaminophen Hives, Swelling 01/14/2017 Medications Medication Sig Dispensed Refills Start Date End Date Status vitamin Take 1 tablet by 0 Active w/gtkidjx-ryab-brbdkh mouth daily. ( PLUS) 27 mg iron- [...] on file Results Not on fileafter 05/18/2019 Insurance Payer Benefit Plan / Subscriber ID Type Phone Address Group MEDICAID - MEDICAID MEDICAID [facility] STAR xxxxxxxxx Medicaid Contracted MGD CARE Advance Directives For more information, please contact:[facility] [address] [place], [place] [phone] Code Status Date Activated Date Inactivated Comments Full Code 02/18/2017 10:04 PM 02/19/2017 1:26 AM This code status was determined by: Patient
--- NOTE | 2020-05-18 22:46 | ER ---
Nurse's Notes [facility] Name: Cassidy France Age: 24 yrs Sex: Female : 1995 Arrival Date: 05/18/2020 Time: 22:14 Bed External Waiting [facility] MD: Diagnosis: Presentation: 05/18 22:40 Chief complaint: Patient states: Tired, dizzy, lightheaded that began today, reports sg taking two hydrocodone 10/325 mg at noon today from a previous dx of kidney stone. Coronavirus screen: Proceed with normal triage. Ebola Screen: Patient negative for fever greater than or equal to 101.5 degrees Fahrenheit, and additional compatible Ebola Virus Disease symptoms Patient denies exposure to infectious person. Patient denies travel to an Ebola-affected area in the 21 days before illness onset. No symptoms or risks identified at this time. Initial Sepsis Screen: Does the patient meet any 2 criteria? No. Patient's initial sepsis screen is negative. Does the patient have a suspected source of infection? No. Patient's initial sepsis screen is negative. Risk Assessment: Do you want to hurt yourself or someone else? Patient reports no desire to harm self or others. Onset of symptoms was May 18, 2020. Care prior to arrival: None. Transition of care: patient was not received from another setting of care. 22:40 Acuity: DERICK 3 sg 22:40 Method Of Arrival: Ambulatory sg Historical: - Allergies: 22:50 Tylenol; sg - PMHx: 22:50 Kidney Infections; Kidney stones; kidney swelling; sg - Immunization history:: Adult Immunizations up to date. - Social history:: Smoking status: Patient denies any tobacco usage or history of. Screenin:40 Abuse screen: Denies threats or abuse. Denies injuries from another. sg Assessment: 22:40 General: Appears in no apparent distress. well groomed, well developed, well nourished, sg Behavior is calm, cooperative, appropriate for age. Pain: Complains of pain in flank pain Quality of pain is described as aching, sharp, stabbing. Cardiovascular: Patient's skin is warm and dry. Respiratory: Airway is patent Respiratory effort is even, unlabored, Respiratory pattern is regular, symmetrical. Derm: Skin is pink, warm \T\ dry. Musculoskeletal: Circulation, motion, and sensation intact. Range of motion: intact in all extremities. ED Course: 22:14 Patient arrived in ED. es 22:40 Arm band placed on. sg 22:40 No provider procedures requiring assistance completed. sg 22:49 Triage completed. sg Administered Medications: No medications were administered Outcome: 22:46 Patient left the ED. sg 22:46 Eloped from patient exam room, after seeing physician pt reports she no longer wants to sg be seen here because her boyfriend will not be able to stay in the exam room during the course of her visit due to visitor policy 22:46 Condition: good 22:46 Instructed on safety practices, Demonstrated understanding of instructions. Signatures: Kar Leon RN RN Dania Hernandez
== END 2020-05-18 22:46 | disposition left against medical advice (07) ==
LOC: ER 22:12
DX: R42 Dizziness and giddiness (principal); Z87.442 Personal history of urinary calculi; Z88.6 Allergy status to analgesic agent
CPT/HCPCS: 99281

== ENCOUNTER 2020-12-31 00:52 | Emergency (ER) | payer SELFPAY ==
--- NOTE | 2020-12-31 01:20 | ER ---
Nurse's Notes [facility] Name: Cassidy France Age: 25 yrs Sex: Female : 1995 Arrival Date: 12/31/2020 Time: 00:55 Bed Waiting Private MD: Diagnosis: ED Course: 12/31 00:55 Patient arrived in ED. cf2 01:04 Shreyas Ayala MD is Attending Physician. tw4 Administered Medications: No medications were administered Outcome: 01:20 Patient left the ED. em Signatures: Eugene Brady RN RN em Shreyas Ayala MD MD tw4 Sanya Richmond cf2
== END 2020-12-31 01:20 | disposition left against medical advice (07) ==
LOC: ER 00:52
DX: Z02.9 Encounter for administrative examinations, unspecified (principal)

== ENCOUNTER 2020-12-31 01:23 | Emergency (ER) | payer SELFPAY ==
--- NOTE | 2020-12-31 01:38 | ER ---
Nurse's Notes [facility] Name: Cassidy France Age: 25 yrs Sex: Female : 1995 Arrival Date: 12/31/2020 Time: 01:24 Bed Waiting Private MD: Diagnosis: Presentation: 12/31 01:32 Note pt states she does not want to be seen in the ED, states she is only waiting for a em ride from her boyfriend. ED Course: 01:24 Patient arrived in ED. cl3 Administered Medications: No medications were administered Outcome: 01:38 Patient left the ED. em Signatures: Eugene Brady RN RN em Stacy Diego cl3
== END 2020-12-31 01:38 | disposition left against medical advice (07) ==
LOC: ER 01:23
DX: Z02.9 Encounter for administrative examinations, unspecified (principal)

== ENCOUNTER 2021-04-27 06:44 | Emergency (ER) | payer OTHER, SELFPAY ==
[2021-04-27] MEDS ORDERED: PROMETHAZINE INJ 25 MG/ML AMP ONE (07:51)
[2021-04-27] MEDS ORDERED: FENTANYL CITR 100 MCG/2 ML ONE (07:53)
[2021-04-27] MEDS ORDERED: NA CHLORIDE 0.9% 1,000 ML ONE (08:49)
--- NOTE | 2021-04-27 09:55 | RAD REPORT ---
EXAM DESCRIPTION: US - OB Limited - 04/27/2021 7:54 am CLINICAL HISTORY: Abd pain;Abd cramping, COMPARISON: No comparisons FINDINGS: A limited examination was requested by referring ER physician. A single live 14 week 2 day gestation is identified in the uterus. heart tones measure 147 beat s per minute, normal. No placenta previa or abruption evident. Normal subjectively amniotic fluid vol ume. Both ovaries are within normal limits. No adnexal abnormality detected.
[2021-04-27 10:21] LABS: Absolute Lymphocytes (CBC) 1.4 K/uL (0.7-4.9); Basophils % 0.6 % (0-1.3); Hematocrit 31.6 % (36.0-45.0); Lymphocytes % 20.2 % (15.3-44.8); MPV 7.9 fL (7.6-11.3); RBC Red Blood Cell Count 3.68 M/uL (3.86-4.86)
[2021-04-27 10:56] LABS: BUN Blood Urea Nitrogen 9 mg/dL (7-18); Bicarbonate 26 mmol/L (21-32); Glucose Level 82 mg/dL (74-106); HCG, Quantitative 12378 mIU/mL (1-3); Sodium Level 141 mmol/L (136-145)
[2021-04-27 10:58] LABS: Potassium 2.9 mmol/L (3.5-5.1)
[2021-04-27 11:09] LABS: Urine Blood Negative (Negative); Urine Glucose Negative (Negative); Urine Protein Negative (Negative); Urine Specific Gravity 1.025 (1.005-1.030)
[2021-04-27] MEDS ORDERED: POTASSIUM CL SA 10 MEQ TAB PO ONE (12:00)
[2021-04-27] MEDS ORDERED: NS KCL 20MEQ 1,000 ML IV ONE (12:00)
--- NOTE | 2021-04-27 13:53 | ER ---
Nurse's Notes [facility] Name: Cassidy France Age: 25 yrs Sex: Female : 1995 Arrival Date: 04/27/2021 Time: 07:03 Bed 20 Private MD: Diagnosis: Dental Infection: Left mandible; related conditions, unspecified;Hypokalemia Presentation: 04/27 07:27 Chief complaint: Patient states: "I have tooth pain and contractions at the same time". kg Coronavirus screen: Client denies travel out of the [place] in the last 14 days. Ebola Screen: Patient negative for fever greater than or equal to 101.5 degrees Fahrenheit, and additional compatible Ebola Virus Disease symptoms Patient denies exposure to infectious person. Patient denies travel to an Ebola-affected area in the 21 days before illness onset. Initial Sepsis Screen: Does the patient meet any 2 criteria? No. Patient's initial sepsis screen is negative. Does the patient have a suspected source of infection? No. Patient's initial sepsis screen is negative. Risk Assessment: Do you want to hurt yourself or someone else? Patient reports no desire to harm self or others. Onset of symptoms was April 27, 2021. 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 - Social history:: Smoking status: Patient reports the use of cigarette tobacco products, smokes one pack cigarettes per day. Screenin:42 Abuse screen: Denies threats or abuse. Denies injuries from another. Nutritional kg screening: No deficits noted. Tuberculosis screening: No symptoms or risk factors identified. Fall Risk None identified. Assessment: 07:28 General: Appears uncomfortable, Behavior is anxious, crying, fussy, inappropriate for kg age, listless, restless, uncooperative. Pain: Complains of pain in left ear, left cheek, mouth, chin, left jaw and abdomen Pain currently is 10 out of 10 on a pain scale. at worst was 10 out of 10 on a pain scale. level that patient reports is acceptable is 3 out of 10 on a pain scale. Quality of pain is described as Pain began suddenly, Is lasting more than 1 hour. Alleviated by nothing. Neuro: No deficits noted. Cardiovascular: No deficits noted. Heart tones S1 S2 Capillary refill < 3 seconds. Respiratory: No deficits noted. Airway is patent Respiratory effort is even, Respiratory pattern is regular, symmetrical, Breath sounds are clear bilaterally. GI: Abdomen is round distended, Bowel sounds present X 4 quads. Abdomen is tender to palpation Guarding noted Reports cramping, Pain is 10 out of 10 on a pain scale. : No deficits noted. EENT: Reports pain in lower left third molar, lower left second molar, lower left first molar, lower left second bicuspid and left side of head. Derm: No deficits noted. Derm: No deficits noted. Musculoskeletal: No deficits noted. 11:50 Reassessment: Patient appears in no apparent distress at this time. pt appears to be iw sleeping, awakens easily to verbal stimuli, NS with KCL fluids started, infusing to RAC. Vital Signs: 07:25 BP 127 / 87; Pulse 99; Resp 20; Temp 98.4(O); Pulse Ox 100% on R/A; Weight 54.43 kg kg (R); Height 5 ft. 3 in. (160.02 cm) (R); 08:30 BP 129 / 83; Pulse 53; Resp 20; Pulse Ox 98% on R/A; kg 10:00 BP 105 / 59; Pulse 68; Resp 20; Pulse Ox 98% on R/A; kg 11:00 BP 102 / 68; Pulse 69; Resp 20; Pulse Ox 100% on R/A; kg 12:00 BP 109 / 71; Pulse 72; Resp 20; Pulse Ox 99% on R/A; kg 14:13 BP 106 / 75; Pulse 78; Resp 20; Pulse Ox 99% on R/A; kg 07:25 Body Mass Index 21.26 (54.43 kg, 160.02 cm) kg ED Course: 07:03 Patient arrived in ED. iw 07:09 Doroteo Lee MD is Attending Physician. kdr 07:15 Maintain EMS IV. Dressing intact. Good blood return noted. Site clean \\T\\ dry. Gauge \\T\\ kg site: 20 G double lumen. 07:15 Arm band placed on right wrist. kg 07:15 Patient has correct armband on for positive identification. Bed in low position. Call kg light in reach. Side rails up X2. 07:16 Kelly Moreira, RN is Primary Nurse. kg 07:28 Triage completed. kg 07:54 US OB Limited In Process Unspecified. EDMS 14:15 IV discontinued, intact, bleeding controlled, No redness/swelling at site. Pressure kg dressing applied. 14:15 No provider procedures requiring assistance completed. kg Administered Medications: 07:30 Drug: Phenergan (promethazine) 12.5 mg Route: IVP; Site: right antecubital; kg 10:42 Follow up: Response: No adverse reaction; Marked relief of symptoms kg 07:30 Drug: fentaNYL (PF) 25 mcg Route: IVP; Site: right forearm; kg 10:42 Follow up: Response: No adverse reaction; Marked relief of symptoms; Pain is decreased kg 08:24 Not Given ( Order changed): Demerol (meperidine) 25 mg IVP once; RASS on ADMIN: kg Combtv4, Very Agttd3, Agttd2, Rstlss1, AlertClm0, Drwsy-1, Lt Sdtn-2, Mod Sdtn-3, Dp Sdtn-4, UnArsble-5 08:24 Drug: NS 0.9% 1000 ml Route: IV; Rate: 1 bolus; Site: right forearm; kg 10:00 Follow up: IV Status: Completed infusion; IV Intake: 1000ml kg 10:41 Follow up: Response: No adverse reaction kg 10:41 Follow up: Response: No adverse reaction; Marked relief of symptoms kg 14:58 Follow up: Response: No adverse reaction; Marked relief of symptoms kg 11:47 Drug: Potassium Chloride 40 mEq Route: PO; iw 12:48 Follow up: Response: No adverse reaction kg 11:47 Drug: Potassium Chloride 10 mEq Route: IV; Rate: calculated rate; Site: right iw antecubital; 12:47 Follow up: Response: No adverse reaction; IV Status: Completed infusion; IV Intake: kg 500ml 14:13 Drug: Amoxicillin 500 mg Route: PO; kg 14:17 Follow up: Response: No adverse reaction kg Intake: 10:00 IV: 1000ml; Total: 1000ml. kg 12:47 IV: 500ml; Total: 1500ml. kg Outcome: 13:52 Discharge ordered by . kdr 14:15 Discharged to home ambulatory. kg 14:15 Condition: improved 14:15 Discharge instructions given to patient, Instructed on discharge instructions, follow up and referral plans. Demonstrated understanding of instructions, follow-up care, medications, Prescriptions given X 2. 14:59 Patient left the ED. kg Signatures: Dispatcher [employer] EDMS Doroteo Lee MD MD kdr Adele Hurtado RN RN iw Kelly Moreira RN RN kg Corrections: (The following items were deleted from the chart) 11:14 11:14 Maintain EMS IV. Dressing intact. Good blood return noted. Site clean \\T\\ dry. kg Gauge \\T\\ site: 20 G double lumen. kg
--- NOTE | 2021-04-27 13:53 | EDPHYS ---
Physician Documentation [facility] Name: Cassidy France Age: 25 yrs Sex: Female : 1995 Arrival Date: 04/27/2021 Time: 07:03 Bed 20 Private MD: ED Physician Doroteo Lee HPI: 04/27 18:02 This 25 yrs old Female presents to ER via EMS with complaints of left lower kdr jaw pain and related abdominal contractions. 18:02 The patient states that she has pain in her left lower jaw and also is having kdr contractions with her 14-15 week . This started earlier today. She has an ongoing and recurrent tooth pain and also started to have contractions earlier today.. Onset: The symptoms/episode began/occurred acutely, today. Severity of symptoms: At their worst the symptoms were moderate severe incapacitating just prior to arrival, in the emergency department the symptoms are unchanged. The patient has experienced similar episodes in the past, a few times. The patient has been recently seen by a physician: OB care from [facility]. 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 - Social history:: Smoking status: Patient reports the use of cigarette tobacco products, smokes one pack cigarettes per day. ROS: 18:02 Constitutional: Negative for fever, chills, and weight loss, Eyes: Negative for injury, kdr pain, redness, and discharge, Neck: Negative for injury, pain, and swelling, Cardiovascular: Negative for chest pain, palpitations, and edema, Respiratory: Negative for shortness of breath, cough, wheezing, and pleuritic chest pain, Back: Negative for injury and pain, : Negative for injury, bleeding, discharge, and swelling, MS/Extremity: Negative for injury and deformity, Skin: Negative for injury, rash, and discoloration, Neuro: Negative for headache, weakness, numbness, tingling, and seizure activity. Psych: Negative for depression, anxiety, suicide ideation, homicidal ideation, and hallucinations, Allergy/Immunology: Negative for hives, rash, and allergies, Endocrine: Negative for neck swelling, polydipsia, polyuria, polyphagia, and marked weight changes, Hematologic/Lymphatic: Negative for swollen nodes, abnormal bleeding, and unusual bruising. 18:02 ENT: Positive for Teeth pain 18:02 Abdomen/GI: Positive for abdominal pain, nausea, abdominal cramps. Exam: 18:02 Constitutional: This is a well developed, well nourished patient who is awake, alert, kdr and in moderate sever distress. Head/Face: Normocephalic, atraumatic. Eyes: Pupils equal round and reactive to light, extra-ocular motions intact. Lids and lashes normal. Conjunctiva and sclera are non-icteric and not injected. Cornea within normal limits. Periorbital areas with no swelling, redness, or edema. Neck: Trachea midline, no thyromegaly or masses palpated, and no cervical lymphadenopathy. Supple, full range of motion without nuchal rigidity, or vertebral point tenderness. No Meningismus. Chest/axilla: Normal chest wall appearance and motion. Nontender with no deformity. No lesions are appreciated. Cardiovascular: Regular rate and rhythm with a normal S1 and S2. No gallops, murmurs, or rubs. Normal PMI, no JVD. No pulse deficits. Respiratory: Lungs have equal breath sounds bilaterally, clear to auscultation and percussion. No rales, rhonchi or wheezes noted. No increased work of breathing, no retractions or nasal flaring. Back: No spinal tenderness. No costovertebral tenderness. Full range of motion. Skin: Warm, dry with normal turgor. Normal color with no rashes, no lesions, and no evidence of cellulitis. MS/ Extremity: Pulses equal, no cyanosis. Neurovascular intact. Full, normal range of motion. Neuro: Awake and alert, GCS 15, oriented to person, place, time, and situation. Cranial nerves II-XII grossly intact. Motor strength 5/5 in all extremities. Sensory grossly intact. Cerebellar exam normal. Normal gait. Psych: Awake, alert, with orientation to person, place and time. Behavior, mood, and affect are within normal limits. 18:02 ENT: Dental exam: dental caries. 18:02 Abdomen/GI: Inspection: abdomen appears normal, Bowel sounds: active, Palpation: soft, mild abdominal tenderness, in the abdomen diffusely. Vital Signs: 07:25 BP 127 / 87; Pulse 99; Resp 20; Temp 98.4(O); Pulse Ox 100% on R/A; Weight 54.43 kg kg (R); Height 5 ft. 3 in. (160.02 cm) (R); 08:30 BP 129 / 83; Pulse 53; Resp 20; Pulse Ox 98% on R/A; kg 10:00 BP 105 / 59; Pulse 68; Resp 20; Pulse Ox 98% on R/A; kg 11:00 BP 102 / 68; Pulse 69; Resp 20; Pulse Ox 100% on R/A; kg 12:00 BP 109 / 71; Pulse 72; Resp 20; Pulse Ox 99% on R/A; kg 14:13 BP 106 / 75; Pulse 78; Resp 20; Pulse Ox 99% on R/A; kg 07:25 Body Mass Index 21.26 (54.43 kg, 160.02 cm) kg MDM: 13:52 Patient medically screened. kdr 13:57 ED course: AUTOMATION TECHNICIAN: 020/010/000: 110. kdr 18:02 Data reviewed: vital signs, nurses notes, lab test result(s), radiologic studies. kdr Counseling: I had a detailed discussion with the patient and/or guardian regarding: the historical points, exam findings, and any diagnostic results supporting the discharge/admit diagnosis, lab results, radiology results, the need for outpatient follow up. Response to treatment: the patient's symptoms have markedly improved after treatment, patient is well hydrated. 04/27 09:16 Order name: CBC with Diff; Complete Time: 10:24 kdr 04/27 09:16 Order name: Chem 7; Complete Time: 11:35 kdr 04/27 09:16 Order name: Quantitative Hcg; Complete Time: 11:35 kdr 04/27 09:16 Order name: Abo/rh Typing; Complete Time: 11:35 kdr 04/27 11:09 Order name: Urine Dipstick-Ancillary; Complete Time: 11:35 EDMS 04/27 14:39 Order name: ABO/RH no charge EDMS 04/27 07:22 Order name: US OB Limited; Complete Time: 10:09 kdr 04/27 09:16 Order name: IV Saline Lock; Complete Time: 10:41 kdr 04/27 09:16 Order name: Labs collected and sent; Complete Time: 10:41 kdr 04/27 09:16 Order name: NPO; Complete Time: 10:41 kdr 04/27 09:16 Order name: Urine Dipstick-Ancillary (obtain specimen); Complete Time: 11:15 kdr Administered Medications: 07:30 Drug: Phenergan (promethazine) 12.5 mg Route: IVP; Site: right antecubital; kg 10:42 Follow up: Response: No adverse reaction; Marked relief of symptoms kg 07:30 Drug: fentaNYL (PF) 25 mcg Route: IVP; Site: right forearm; kg 10:42 Follow up: Response: No adverse reaction; Marked relief of symptoms; Pain is decreased kg 08:24 Not Given ( Order changed): Demerol (meperidine) 25 mg IVP once; RASS on ADMIN: kg Combtv4, Very Agttd3, Agttd2, Rstlss1, AlertClm0, Drwsy-1, Lt Sdtn-2, Mod Sdtn-3, Dp Sdtn-4, UnArsble-5 08:24 Drug: NS 0.9% 1000 ml Route: IV; Rate: 1 bolus; Site: right forearm; kg 10:00 Follow up: IV Status: Completed infusion; IV Intake: 1000ml kg 10:41 Follow up: Response: No adverse reaction kg 10:41 Follow up: Response: No adverse reaction; Marked relief of symptoms kg 14:58 Follow up: Response: No adverse reaction; Marked relief of symptoms kg 11:47 Drug: Potassium Chloride 40 mEq Route: PO; iw 12:48 Follow up: Response: No adverse reaction kg 11:47 Drug: Potassium Chloride 10 mEq Route: IV; Rate: calculated rate; Site: right iw antecubital; 12:47 Follow up: Response: No adverse reaction; IV Status: Completed infusion; IV Intake: kg 500ml 14:13 Drug: Amoxicillin 500 mg Route: PO; kg 14:17 Follow up: Response: No adverse reaction kg Disposition: 04/27/21 13:52 Discharged to Home. Impression: Dental Infection: Left mandible, related conditions, unspecified, Hypokalemia. - Condition is Stable. - Discharge Instructions: Potassium Content of Foods, Dental Pain, [id number], Abdominal Pain During , [id number], Second Trimester of , [id number], Hypokalemia, Dental Caries, [id number], Preventive Dental Care, Adult. - Prescriptions for Amoxicillin 500 mg Oral Capsule - take 1 capsule by ORAL route every 8 hours for 10 days; 30 tablet. Tramadol 50 mg Oral Tablet - take 1 tablet by ORAL route every 8 hours as needed; 12 tablet. - Medication Reconciliation Form, Thank You Letter, Antibiotic Education, Prescription Opioid Use form. - Follow up: Private Physician; When: 2 - 3 days; Reason: If symptoms return, Further diagnostic work-up, Recheck today's complaints, Continuance of care, Re-evaluation by your physician. - Problem is new. - Symptoms have improved. Signatures: Dispatcher [employer] EDMS Doroteo Lee MD MD kdr Adele Hurtado RN RN iw Kelly Moreira RN RN kg Corrections: (The following items were deleted from the chart) 13:52 13:52 04/27/2021 13:52 Discharged to Home. Impression: Dental Infection: Left mandible; kdr related conditions, unspecified. Condition is Stable. Forms are Medication Reconciliation Form, Thank You Letter, Antibiotic Education, Prescription Opioid Use. Follow up: Private Physician; When: 2 - 3 days; Reason: If symptoms return, Further diagnostic work-up, Recheck today's complaints, Continuance of care, Re-evaluation by your physician. Problem is new. Symptoms have improved. kdr 14:59 13:52 04/27/2021 13:52 Discharged to Home. Impression: Dental Infection: Left mandible; kg related conditions, unspecified; Hypokalemia. Condition is Stable. Forms are Medication Reconciliation Form, Thank You Letter, Antibiotic Education, Prescription Opioid Use. Follow up: Private Physician; When: 2 - 3 days; Reason: If symptoms return, Further diagnostic work-up, Recheck today's complaints, Continuance of care, Re-evaluation by your physician. Problem is new. Symptoms have improved. kdr
[2021-04-27] MEDS ORDERED: AMOXICILLIN TRIHYDR 250 MG CAP ONE (14:22)
[2021-04-27 15:04] VITALS: TEMP 98.4
[2021-04-27 15:10] VITALS: O2SAT 99
[2021-04-27 15:12] VITALS: BP 106/75
== END 2021-04-27 14:59 | disposition home or self-care (01) ==
LOC: ER 06:44
DX: O99.611 Diseases of the digestive system complicating pregnancy, first trimester (principal); K02.9 Dental caries, unspecified; O99.281 Endocrine, nutritional and metabolic diseases complicating pregnancy, first trimester; E87.6 Hypokalemia; O99.331 Smoking (tobacco) complicating pregnancy, first trimester; F17.210 Nicotine dependence, cigarettes, uncomplicated; Z3A.14 14 weeks gestation of pregnancy; Z88.6 Allergy status to analgesic agent
CPT/HCPCS: 85025; 80048; 36415; 86900; 86901; 84702; 81003; 76815; 99284; J2550; J3010; J7030; J3480

== ENCOUNTER 2021-05-03 18:32 | Emergency (ER) | payer OTHER ==
[2021-05-03 19:10] LABS: Absolute Lymphocytes (CBC) 1.9 K/uL (0.7-4.9); Basophils % 0.8 % (0-1.3); Hematocrit 30.5 % (36.0-45.0); Lymphocytes % 30.6 % (15.3-44.8); MPV 7.3 fL (7.6-11.3); RBC Red Blood Cell Count 3.61 M/uL (3.86-4.86)
[2021-05-03] MEDS ORDERED: ONDANSETRON 4 MG/2 ML VIAL ONE (19:21)
[2021-05-03] MEDS ORDERED: MORPHINE 2 MG/ML SYR ONE (19:21)
[2021-05-03] MEDS ORDERED: NA CHLORIDE 0.9% 1,000 ML ONE ×2 (19:21→22:02)
[2021-05-03 19:36] LABS: Urine Blood Negative (Negative); Urine Glucose Negative (Negative); Urine Protein Negative (Negative); Urine Specific Gravity 1.015 (1.005-1.030)
--- NOTE | 2021-05-03 19:43 | RAD REPORT ---
EXAM DESCRIPTION: US - OB Limited - 05/03/2021 7:31 pm CLINICAL HISTORY: ABD CRAMPING, Pelvic pain COMPARISON: OB Limited dated 04/27/2021 FINDINGS: A limited examination was requested by a ER physician. A single cephalic presenting gestation is identified. Heart rate normal. Estimated gestational age is 15 weeks 2 days. Placenta is anterior without evidence of abruption. Cervix appears closed. Normal a mniotic fluid volume.
[2021-05-03 19:57] LABS: BUN Blood Urea Nitrogen 8 mg/dL (7-18); Bicarbonate 23 mmol/L (21-32); Glucose Level 87 mg/dL (74-106); HCG, Quantitative 9686 mIU/mL (1-3); Potassium 3.5 mmol/L (3.5-5.1); Sodium Level 140 mmol/L (136-145)
[2021-05-03 20:15] LABS: Urine Specific Gravity/Preg 1.015 (1.005-1.030)
[2021-05-03] MEDS ORDERED: DIPHENHYDRAMINE 50 MG/ML VIAL ONE (20:15)
[2021-05-03] MEDS ORDERED: DICYCLOMINE HCL 10 MG CAP ONE (20:16)
[2021-05-03 20:53] LABS: Barbiturates NEGATIVE (NEGATIVE); Benzodiazepines NEGATIVE (NEGATIVE); Cocaine NEGATIVE (NEGATIVE); METHAMPHETAM POSITIVE (NEGATIVE); Methadone NEGATIVE (NEGATIVE); Opiates NEGATIVE (NEGATIVE); Phencyclidine NEGATIVE (NEGATIVE); THC Cannibis NEGATIVE (NEGATIVE)
--- NOTE | 2021-05-03 22:57 | ER ---
Nurse's Notes [facility] Name: Cassidy France Age: 25 yrs Sex: Female : 1995 Arrival Date: 05/03/2021 Time: 18:35 Bed 19 Private MD: Diagnosis: related conditions, unspecified, second trimester;Unspecified abdominal pain Presentation: 05/03 18:35 Chief complaint: EMS states: patient is in active labor at 17 weeks gestation. This is ap3 the patients 5th pregnany, and she has had 3 live births. Coronavirus screen: At this time, the client does not indicate any symptoms associated with coronavirus-19. Ebola Screen: No symptoms or risks identified at this time. Initial Sepsis Screen: Does the patient meet any 2 criteria? No. Patient's initial sepsis screen is negative. Does the patient have a suspected source of infection? No. Patient's initial sepsis screen is negative. Risk Assessment: Do you want to hurt yourself or someone else? Patient reports no desire to harm self or others. Onset of symptoms was May 03, 2021 at 17:45. Care prior to arrival: IV initiated. 20 GA, in the left wrist. 18:35 Method Of Arrival: EMS: [email or web address] ap3 19:12 Acuity: DERICK 3 jm8 Triage Assessment: 18:43 General: Appears distressed, uncomfortable, Behavior is anxious, restless. Pain: ap3 Complains of pain in abdomen Pain currently is 9 out of 10 on a pain scale. Noted to be crying, grimacing, guarding, moaning, restless. EENT: No signs and/or symptoms were reported regarding the EENT system. Neuro: Level of Consciousness is awake, alert, obeys commands, Oriented to person, place, time, situation, Speech is normal. Cardiovascular: Denies chest pain, Capillary refill < 3 seconds. Respiratory: Airway is patent Respiratory pattern is symmetrical, tachypnea. GI: No signs and/or symptoms were reported involving the gastrointestinal system. : Reports feeling contractions every 5 minutes. 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 - Social history:: Smoking status: Patient reports the use of cigarette tobacco products, denies chronic smoking, but will smoke occasionally, Patient/guardian denies using alcohol, street drugs. Screenin:41 Abuse screen: Denies threats or abuse. Nutritional screening: No deficits noted. ap3 Tuberculosis screening: No symptoms or risk factors identified. Fall Risk No fall in past 12 months (0 pts). No secondary diagnosis (0 pts). IV access (20 points). Ambulatory Aid- None/Bed Rest/Nurse Assist (0 pts). Gait- Impaired (20 pts.). Mental Status- Oriented to own ability (0 pts). Total Baldwin Fall Scale indicates High Risk Score (45 or more points). Fall prevention measures have been instituted. Side Rails Up X 2 Placed Close to Nursing Station Frequent Obs/Assessments Occuring Family Present and informed to notify staff if the need to leave the bedside As available patient and family educated on Fall Prevention Program and Strategies. Assessment: 18:46 General: see triage assessment. ap3 Vital Signs: 18:35 BP 129 / 87; Pulse 80; Resp 23; Temp 97.9; Pulse Ox 100% on R/A; Pain 9/10; ap3 20:03 Weight 56.25 kg; Height 5 ft. 3 in. (160.02 cm); 8 20:29 BP 88 / 56; Pulse 55; Resp 16; Pulse Ox 100% on R/A; 8 21:44 BP 85 / 49; Pulse 62; Resp 16; Pulse Ox 100% ; 8 22:30 BP 99 / 61; Pulse 72; Resp 16; Pulse Ox 100% on R/A; 8 23:03 BP 117 / 82; Pulse 64; Resp 16; Pulse Ox 99% on R/A; 8 20:03 Body Mass Index 21.97 (56.25 kg, 160.02 cm) [facility] ED Course: 18:35 Patient arrived in ED. ap3 18:40 Yash Gerber PA is PHCP. cp 18:40 Doroteo Lee MD is Attending Physician. cp 18:43 Patient has correct armband on for positive identification. Bed in low position. Call ap3 light in reach. Side rails up X2. Pulse ox on. NIBP on. Door closed. Noise minimized. 18:46 Arm band placed on right wrist. ap3 18:54 Abigail Fong, RN is Primary Nurse. ap3 19:12 Triage completed. jm8 19:31 US OB Limited In Process Unspecified. EDMS 23:09 No provider procedures requiring assistance completed. IV discontinued, intact. jm8 Administered Medications: 19:05 Drug: morphine 2 mg Route: IVP; Site: left hand; jm8 19:59 Follow up: Response: No adverse reaction jm8 19:05 Drug: NS 0.9% 1000 ml Route: IV; Rate: 1 bolus; Site: left hand; jm8 23:11 Follow up: IV Status: Completed infusion jm8 19:05 Drug: Zofran (Ondansetron) 4 mg Route: IVP; Site: left hand; jm8 19:59 Follow up: Response: No adverse reaction jm8 19:59 Drug: Benadryl (diphenhydrAMINE) 25 mg Route: IVP; Site: left hand; jm8 21:44 Follow up: Response: No adverse reaction jm8 19:59 Drug: Bentyl (dicyclomine) 20 mg Route: PO; jm8 21:44 Follow up: Response: No adverse reaction jm8 21:43 Drug: NS 0.9% 1000 ml Route: IV; Rate: 1 bolus; Site: left hand; jm8 23:11 Follow up: IV Status: Completed infusion jm8 Outcome: 22:56 Discharge ordered by . tricia 23:09 Discharged to home ambulatory. jm8 23:09 Condition: good 23:09 Discharge instructions given to patient, Instructed on discharge instructions, follow up and referral plans. medication usage, Demonstrated understanding of instructions, follow-up care, medications, Prescriptions given X 2. 23:12 Patient left the ED. jm8 Signatures: Dispatcher [employer] EDME Yash Gerber PA PA cp Prokisch, Amanda, RN RN ap3 Jose Daniel Masters RN RN jm8
--- NOTE | 2021-05-03 22:57 | EDPHYS ---
Physician Documentation [facility] Name: Cassidy France Age: 25 yrs Sex: Female : 1995 Arrival Date: 05/03/2021 Time: 18:35 Bed 19 Private MD: ED Physician Doroteo Lee HPI: 05/03 18:45 This 25 yrs old Female presents to ER via EMS with complaints of Abdominal cp Pain. 18:45 The patient presents to the emergency department with abdominal pain, of the right cp lower quadrant and left lower quadrant, that started today, described as crampy. The estimated gestational age is 17 weeks. course: care: private OB physician, Leakage of Fluid: none appreciated. Associated signs and symptoms: Pertinent negatives: dysuria, fever, ruptured membranes, vaginal bleeding, vaginal discharge, vomiting. 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 - Social history:: Smoking status: Patient reports the use of cigarette tobacco products, denies chronic smoking, but will smoke occasionally, Patient/guardian denies using alcohol, street drugs. ROS: 18:55 Abdomen/GI: Positive for abdominal cramps, Negative for vomiting, diarrhea, cp constipation. 18:55 Eyes: Negative for injury, pain, redness, and discharge. cp 18:55 Constitutional: Negative for body aches, chills, fever. 18:55 ENT: Negative for ear pain, sore throat, difficulty swallowing, difficulty handling secretions. 18:55 Cardiovascular: Negative for chest pain, palpitations. 18:55 Respiratory: Negative for cough, shortness of breath, wheezing. 18:55 Back: Negative for pain at rest, pain with movement. 18:55 : Negative for urinary symptoms, vaginal bleeding, vaginal discharge. 18:55 Neuro: Negative for altered mental status, headache, weakness. 18:55 All other systems are negative. Exam: 18:58 Constitutional: The patient appears in no acute distress, alert, awake, non-toxic, well cp developed, well nourished, uncomfortable. 18:58 Head/Face: Normocephalic, atraumatic. cp 18:58 Eyes: Periorbital structures: appear normal, Conjunctiva: normal, no exudate, no injection, Sclera: no appreciated abnormality, Lids and lashes: appear normal, bilaterally. 18:58 ENT: External ear(s): are unremarkable, Nose: is normal, Mouth: Lips: moist, Oral mucosa: moist, Posterior pharynx: Airway: no evidence of obstruction, patent. 18:58 Chest/axilla: Inspection: normal, Palpation: is normal, no crepitus, no tenderness. 18:58 Cardiovascular: Rate: normal, Rhythm: regular. 18:58 Respiratory: the patient does not display signs of respiratory distress, Respirations: normal, no use of accessory muscles, no retractions, labored breathing, is not present, Breath sounds: are clear throughout, no decreased breath sounds. 18:58 Abdomen/GI: Inspection: abdomen appears normal, Bowel sounds: active, all quadrants, Palpation: soft, in all quadrants, severe abdominal tenderness, in the right lower quadrant and left lower quadrant, rebound tenderness, is not appreciated, voluntary guarding, is elicited in the right lower quadrant and left lower quadrant. 18:58 Back: CVA tenderness, is absent. Vital Signs: 18:35 BP 129 / 87; Pulse 80; Resp 23; Temp 97.9; Pulse Ox 100% on R/A; Pain 9/10; ap3 20:03 Weight 56.25 kg; Height 5 ft. 3 in. (160.02 cm); 8 20:29 BP 88 / 56; Pulse 55; Resp 16; Pulse Ox 100% on R/A; 8 21:44 BP 85 / 49; Pulse 62; Resp 16; Pulse Ox 100% ; 8 22:30 BP 99 / 61; Pulse 72; Resp 16; Pulse Ox 100% on R/A; 8 23:03 BP 117 / 82; Pulse 64; Resp 16; Pulse Ox 99% on R/A; 8 20:03 Body Mass Index 21.97 (56.25 kg, 160.02 cm) [facility] MDM: 18:43 Patient medically screened. cp 19:00 Differential diagnosis: STD, threatened Ab, inevitable Ab. cp 22:55 Data reviewed: vital signs, nurses notes, lab test result(s), radiologic studies, cp ultrasound. 22:55 Counseling: I had a detailed discussion with the patient and/or guardian regarding: the cp historical points, exam findings, and any diagnostic results supporting the discharge/admit diagnosis, lab results, radiology results, the need for outpatient follow up, an OB/Gyne specialist, to return to the emergency department if symptoms worsen or persist or if there are any questions or concerns that arise at home. 22:55 Response to treatment: the patient's symptoms have markedly improved after treatment, cp patient is well hydrated. VSS. Pain improved. Will discharge to home for continued monitoring. 05/03 18:45 Order name: Quantitative Hcg; Complete Time: 20:52 05/03 20:52 Interpretation: Reviewed. 05/03 18:45 Order name: Abo/rh Typing 05/03 18:45 Order name: Basic Metabolic Panel; Complete Time: 20:52 05/03 22:08 Interpretation: Normal except: CL 110; CRE 0.42; CA 8.2. 05/03 18:45 Order name: CBC with Diff; Complete Time: 19:29 05/03 19:29 Interpretation: Normal except: WBC 6.10; RBC 3.61; HGB 10.8; HCT 30.5; RDW 15.3; MPV cp 7.3. 05/03 19:35 Order name: Urine Dipstick-Ancillary; Complete Time: 20:52 EDMS 05/03 20:52 Interpretation: Normal except: UESTR Trace. 05/03 19:36 Order name: Urine --Ancillary (enter results); Complete Time: 20:52 eb 05/03 18:45 Order name: US OB Limited; Complete Time: 20:52 05/03 19:45 Order name: UDS; Complete Time: 21:11 05/03 21:11 Interpretation: Normal except: METHAMPHETAMINE POSITIVE. 05/03 18:45 Order name: Urine Test (obtain specimen); Complete Time: 19:41 05/03 18:45 Order name: IV Saline Lock; Complete Time: 18:54 cp 05/03 18:45 Order name: Labs collected and sent; Complete Time: 19:06 05/03 18:45 Order name: NPO; Complete Time: 18:54 cp 05/03 18:45 Order name: Urine Dipstick-Ancillary (obtain specimen); Complete Time: 19:41 cp Administered Medications: 19:05 Drug: morphine 2 mg Route: IVP; Site: left hand; jm8 19:59 Follow up: Response: No adverse reaction jm8 19:05 Drug: NS 0.9% 1000 ml Route: IV; Rate: 1 bolus; Site: left hand; jm8 23:11 Follow up: IV Status: Completed infusion jm8 19:05 Drug: Zofran (Ondansetron) 4 mg Route: IVP; Site: left hand; jm8 19:59 Follow up: Response: No adverse reaction 8 19:59 Drug: Benadryl (diphenhydrAMINE) 25 mg Route: IVP; Site: left hand; jm8 21:44 Follow up: Response: No adverse reaction 8 19:59 Drug: Bentyl (dicyclomine) 20 mg Route: PO; jm8 21:44 Follow up: Response: No adverse reaction [facility] 21:43 Drug: NS 0.9% 1000 ml Route: IV; Rate: 1 bolus; Site: left hand; jm8 23:11 Follow up: IV Status: Completed infusion 8 Disposition: 05/04 07:25 Co-signature as Attending Physician, Doroteo Lee MD I agree with the assessment and kdr plan of care. Disposition: 05/03/21 22:56 Discharged to Home. Impression: related conditions, unspecified, second trimester, Unspecified abdominal pain. - Condition is Stable. - Discharge Instructions: Abdominal Pain During . - Prescriptions for Bentyl 20 mg Oral Tablet - take 2 tablet by ORAL route every 6 hours As needed; 40 tablet. promethazine 25 mg Oral Tablet - take 1 tablet by ORAL route every 6 hours As needed; 20 tablet. - Medication Reconciliation Form, Thank You Letter, Antibiotic Education, Prescription Opioid Use, Work release form form. - Follow up: Private Physician; When: 1 - 2 days; Reason: Recheck today's complaints. - Problem is new. - Symptoms have improved. Signatures: Dispatcher [employer] Doroteo Lane MD MD kdr Page, Corey, PA PA cp Prokisch, Amanda RN RN ap3 Jose Daniel aMsters RN RN jm8 Corrections: (The following items were deleted from the chart) 05/03 22:08 20:52 Normal except: CL 110; CRE 0.42. cp cp 23:12 22:56 05/03/2021 22:56 Discharged to Home. Impression: related conditions, jm8 unspecified, second trimester; Unspecified abdominal pain. Condition is Stable. Forms are Medication Reconciliation Form, Thank You Letter, Antibiotic Education, Prescription Opioid Use. Follow up: Private Physician; When: 1 - 2 days; Reason: Recheck today's complaints. Problem is new. Symptoms have improved. cp
[2021-05-04 00:39] VITALS: BP 117/82; O2SAT 99
[2021-05-04 00:50] VITALS: TEMP 97.9
== END 2021-05-03 23:12 | disposition home or self-care (01) ==
LOC: ER 18:32
DX: O26.892 Other specified pregnancy related conditions, second trimester (principal); O99.332 Smoking (tobacco) complicating pregnancy, second trimester; F17.210 Nicotine dependence, cigarettes, uncomplicated; Z3A.15 15 weeks gestation of pregnancy
CPT/HCPCS: 96361; 85025; 80048; 36415; 86900; 81025; 86901; 80307 ×8; 84702; 81003; 76815; 96375; 96374; 99284; J1200; J2270; J7030 ×2; J2405

== ENCOUNTER 2021-05-20 20:27 | Emergency (ER) | payer OTHER ==
[2021-05-20 22:30] LABS: Absolute Lymphocytes (CBC) 2.1 K/uL (0.7-4.9); Basophils % 0.6 % (0-1.3); Hematocrit 31.4 % (36.0-45.0); Lymphocytes % 26.8 % (15.3-44.8); MPV 7.4 fL (7.6-11.3)
[2021-05-20 22:48] LABS: ALT/SGPT 14 U/L (12-78); AST/SGOT 10 U/L (15-37); Albumin 2.8 g/dL (3.4-5.0); Alkaline Phosphatase 54 U/L (45-117); BUN Blood Urea Nitrogen 8 mg/dL (7-18); Bicarbonate 27 mmol/L (21-32); Bilirubin Direct < 0.1 mg/dL (0-0.2); Bilirubin Total 0.1 mg/dL (0.2-1.0); Glucose Level 79 mg/dL (74-106); Lipase 145 U/L (73-393); Potassium 3.1 mmol/L (3.5-5.1); Protein, Total 6.1 g/dL (6.4-8.2); Sodium Level 142 mmol/L (136-145)
[2021-05-20 23:29] LABS: Urine Blood Negative (Negative); Urine Glucose Negative (Negative); Urine Protein Negative (Negative); Urine Specific Gravity 1.015 (1.005-1.030)
[2021-05-20 23:46] LABS: Barbiturates NEGATIVE (NEGATIVE); Benzodiazepines NEGATIVE (NEGATIVE); Cocaine NEGATIVE (NEGATIVE); METHAMPHETAM NEGATIVE (NEGATIVE); Methadone NEGATIVE (NEGATIVE); Opiates NEGATIVE (NEGATIVE); Phencyclidine NEGATIVE (NEGATIVE); THC Cannibis NEGATIVE (NEGATIVE)
[2021-05-21] MEDS ORDERED: NA CHLORIDE 0.9% 1,000 ML ONE (00:19)
[2021-05-21] MEDS ORDERED: KCL 20 MEQ/100 mL IVPB 20 MEQ/100 ML BAG IV ONE (03:22)
--- NOTE | 2021-05-21 04:58 | EDPHYS ---
Physician Documentation [facility] Name: Cassidy France Age: 25 yrs Sex: Female : 1995 Arrival Date: 05/20/2021 Time: 20:29 Bed 19 Private MD: ED Physician Jonas Mckeon HPI: 05/20 22:13 This 25 yrs old Female presents to ER via Wheelchair with complaints of Fall pkl Injury, Abdominal Pain, 20 WKS . 22:13 Details of fall: The patient fell from an upright position, triped. Onset: The pkl symptoms/episode began/occurred today. Associated injuries: The patient sustained injury to the abdomen, specifically the right lower quadrant and left lower quadrant. Patient is about 20 weeks . 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 - Social history:: Smoking status: Patient denies any tobacco usage or history of. ROS: 22:13 Eyes: Negative for injury, pain, redness, and discharge, ENT: Negative for injury, pkl pain, and discharge, Neck: Negative for injury, pain, and swelling, Cardiovascular: Negative for chest pain, palpitations, and edema, Respiratory: Negative for shortness of breath, cough, wheezing, and pleuritic chest pain. 22:13 Abdomen/GI: Positive for abdominal pain, of the right lower quadrant and left lower quadrant. 22:13 Back: Negative for acute changes. 22:13 : Negative for urinary symptoms. 22:13 MS/extremity: Negative for acute changes. 22:13 Skin: Negative for rash. 22:13 Neuro: Negative for altered mental status, loss of consciousness. Exam: 22:13 Head/Face: Normocephalic, atraumatic. Eyes: Pupils equal round and reactive to light, pkl extra-ocular motions intact. Lids and lashes normal. Conjunctiva and sclera are non-icteric and not injected. Cornea within normal limits. Periorbital areas with no swelling, redness, or edema. ENT: Nares patent. No nasal discharge, no septal abnormalities noted. Tympanic membranes are normal and external auditory canals are clear. Oropharynx with no redness, swelling, or masses, exudates, or evidence of obstruction, uvula midline. Mucous membranes moist. Neck: Trachea midline, no thyromegaly or masses palpated, and no cervical lymphadenopathy. Supple, full range of motion without nuchal rigidity, or vertebral point tenderness. No Meningismus. Chest/axilla: Normal chest wall appearance and motion. Nontender with no deformity. No lesions are appreciated. Cardiovascular: Regular rate and rhythm with a normal S1 and S2. No gallops, murmurs, or rubs. Normal PMI, no JVD. No pulse deficits. Respiratory: Lungs have equal breath sounds bilaterally, clear to auscultation and percussion. No rales, rhonchi or wheezes noted. No increased work of breathing, no retractions or nasal flaring. 22:13 Abdomen/GI: Bowel sounds: normal, Palpation: soft, mild abdominal tenderness, in the right lower quadrant and left lower quadrant. 22:13 Back: Exam negative for acute changes. 22:13 : Exam negative for acute changes, no vaginal bleeding noted. 22:13 Musculoskeletal/extremity: Exam is negative for acute changes. 22:13 Skin: Exam negative for rash. 22:13 Neuro: Orientation: is normal, Mentation: is normal, Cranial nerves: grossly normal, Motor: is normal. Vital Signs: 20:52 Pulse 82; Resp 16; Temp 98.5; Pulse Ox 99% on R/A; Weight 57.15 kg; Height 5 ft. 3 in. em (160.02 cm); Pain 8/10; 20:54 BP 115 / 65; em 05/21 00:10 BP 104 / 56; Pulse 65; Resp 16; Pulse Ox 100% on R/A; zb 02:23 BP 114 / 75; Pulse 77; Resp 16; Pulse Ox 99% on R/A; em 04:27 BP 109 / 63; Pulse 63; Resp 18; Pulse Ox 99% on R/A; em 05/20 20:52 Body Mass Index 22.32 (57.15 kg, 160.02 cm) em MDM: 05/20 22:02 Patient medically screened. pkl 05/21 04:56 Data reviewed: vital signs, nurses notes, lab test result(s), radiologic studies, pkl ultrasound. 05/20 22:08 Order name: Basic Metabolic Panel pkl 05/20 22:08 Order name: CBC with Diff; Complete Time: 02:53 pkl 05/20 22:08 Order name: Hepatic Function pkl 05/20 22:08 Order name: Lipase; Complete Time: 02:53 pkl 05/20 22:08 Order name: UDS; Complete Time: 02:53 pkl 05/20 22:08 Order name: Basic Metabolic Panel; Complete Time: 02:53 EDMS 05/20 22:08 Order name: IV Saline Lock; Complete Time: 23:53 pkl 05/20 22:09 Order name: Liver (Hepatic) Function; Complete Time: 02:53 EDMS 05/20 22:12 Order name: US Abdomen Limited; Complete Time: 12:43 pkl 05/20 23:29 Order name: Urine Dipstick-Ancillary; Complete Time: 02:53 EDMS 05/20 23:36 Order name: OB Limited; Complete Time: 12:43 EDMS 05/20 22:08 Order name: Labs collected and sent; Complete Time: 23:53 pkl 05/20 23:20 Order name: Straight Cath; Complete Time: 23:52 zb Administered Medications: 05/20 23:53 Drug: NS 0.9% 1000 ml Route: IV; Rate: 125 ml/hr; Site: left antecubital; zb 05/21 03:05 Drug: Potassium Chloride 20 mEq Route: IV; Rate: calculated rate; Site: left em antecubital; Disposition Summary: 05/21/21 04:57 Discharge Ordered Location: Home pkl Problem: new pkl Symptoms: have improved pkl Condition: Stable pkl Diagnosis - Abdominal pain. 2 nd Trimedter . S/P Fall pkl Followup: pkl - With: Private Physician - When: 2 - 3 days - Reason: Re-evaluation by your physician Forms: - Medication Reconciliation Form pkl - Thank You Letter pkl - Antibiotic Education pkl - Prescription Opioid Use pkl Signatures: Dispatcher [employer] Guerline Lundberg, DEACONC DUMP WORKER-Jonas Perez MD MD pkEugene Agee RN RN em Brown, Zipporah, RN RN zb Corrections: (The following items were deleted from the chart) 05/20 23:36 22:12 Transvaginal Study (Probe)+[email or web address] ordered. EDMS EDMS
--- NOTE | 2021-05-21 04:58 | ER ---
Nurse's Notes [facility] Name: Cassidy France Age: 25 yrs Sex: Female : 1995 Arrival Date: 05/20/2021 Time: 20:29 Bed 19 Private MD: Diagnosis: Abdominal pain. 2 nd Trimedter . S/P Fall Presentation: 05/20 20:52 Chief complaint: Patient states: fell and hit abdomen, reports being 20 weeks , em went to [facility]\T\D and was told she is 15 weeks , reports pain and contractions, denies other injuries. Coronavirus screen: Client denies travel out of the [place] in the last 14 days. Ebola Screen: Patient negative for fever greater than or equal to 101.5 degrees Fahrenheit, and additional compatible Ebola Virus Disease symptoms Patient denies exposure to infectious person. Patient denies travel to an Ebola-affected area in the 21 days before illness onset. No symptoms or risks identified at this time. Initial Sepsis Screen: Does the patient meet any 2 criteria? No. Patient's initial sepsis screen is negative. Does the patient have a suspected source of infection? No. Patient's initial sepsis screen is negative. Risk Assessment: Do you want to hurt yourself or someone else? Patient reports no desire to harm self or others. Onset of symptoms was May 20, 2021. 20:52 Method Of Arrival: Wheelchair em 20:52 Acuity: DERICK 3 em [employer] MA[employer]GER: 20:54 LMP 01/01/2021 em Historical: - Allergies: 20:54 No Known Allergies; em - PMHx: 20:54 Kidney Infections; Kidney stones; kidney swelling; em - PSHx: 20:54 None; em - Immunization history:: Adult Immunizations up to date. - Social history:: Smoking status: Patient denies any tobacco usage or history of. Screenin:11 Abuse screen: Denies threats or abuse. Denies injuries from another. Nutritional zb screening: No deficits noted. Tuberculosis screening: No symptoms or risk factors identified. Fall Risk None identified. Assessment: 22:11 General: Appears in no apparent distress. uncomfortable, Behavior is fussy, quiet. zb Pain: Complains of pain in suprapubic area, right inguinal area and left inguinal area. Neuro: Level of Consciousness is awake, alert, obeys commands, Oriented to person, place, time, situation. Cardiovascular: Heart tones S1 S2 present Patient's skin is warm and dry. Respiratory: Airway is patent Respiratory effort is even, unlabored, Respiratory pattern is regular, symmetrical. : Reports vaginal bleeding that is. Derm: Skin is intact, is healthy with good turgor, Skin is dry, Skin is normal. Musculoskeletal: Range of motion: intact in all extremities. 23:21 Reassessment: patient straight cath. tolerated well. patient states she has been having zb trouble with urination. notified ecp. 05/21 00:10 Reassessment: Patient appears in no apparent distress at this time. Patient and/or zb family updated on plan of care and expected duration. Pain level reassessed. Patient is alert, oriented x 3, equal unlabored respirations, skin warm/dry/pink. lights dimmed patient laying in stretch. attempting to rest at this time. 02:23 Reassessment: Patient appears in no apparent distress at this time. Patient and/or em family updated on plan of care and expected duration. Pain level reassessed. Patient is alert, oriented x 3, equal unlabored respirations, skin warm/dry/pink. 04:14 Reassessment: Patient appears in no apparent distress at this time. Patient and/or em family updated on plan of care and expected duration. Pain level reassessed. Patient is alert, oriented x 3, equal unlabored respirations, skin warm/dry/pink. Vital Signs: 05/20 20:52 Pulse 82; Resp 16; Temp 98.5; Pulse Ox 99% on R/A; Weight 57.15 kg; Height 5 ft. 3 in. em (160.02 cm); Pain 8/10; 20:54 BP 115 / 65; em 05/21 00:10 BP 104 / 56; Pulse 65; Resp 16; Pulse Ox 100% on R/A; zb 02:23 BP 114 / 75; Pulse 77; Resp 16; Pulse Ox 99% on R/A; em 04:27 BP 109 / 63; Pulse 63; Resp 18; Pulse Ox 99% on R/A; em 05/20 20:52 Body Mass Index 22.32 (57.15 kg, 160.02 cm) em ED Course: 05/20 20:29 Patient arrived in ED. cf2 20:54 Triage completed. em 20:54 Arm band placed on. em 21:41 Stacey Marmolejo, RN is Primary Nurse. zb 22:02 Jonas Mckeon MD is Attending Physician. pkl 22:24 Initial lab(s) drawn, by me, sent to lab. Inserted saline lock: 20 gauge in left tt3 antecubital area, using aseptic technique. Blood collected. 23:21 Straight cath inserted, using sterile technique, 16 Fr. Specimen obtained. Patient zb tolerated well. 23:23 Patient has correct armband on for positive identification. Pulse ox on. NIBP on. Door zb closed. Noise minimized. 23:36 US Abdomen Limited In Process Unspecified. EDMS 23:36 OB Limited In Process Unspecified. EDMS Administered Medications: 23:53 Drug: NS 0.9% 1000 ml Route: IV; Rate: 125 ml/hr; Site: left antecubital; zb 05/21 03:05 Drug: Potassium Chloride 20 mEq Route: IV; Rate: calculated rate; Site: left em antecubital; Output: 05/20 23:23 Urine: 1000ml (Straight Cath); Total: 1000ml. zb Outcome: 05/21 04:57 Discharge ordered by . pkl 05:11 Discharged to home ambulatory. ak2 05:11 Condition: good 05:11 Discharge instructions given to patient. 05:11 Patient left the ED. ak2 Signatures: Dispatcher [employer] EDMS Jonas Mckeon MD MD pkEugene Agee RN RN Sanya Richmond cf2 Vickey Casas tt3 Stacey Marmolejo RN RN z Rufino López ak2
[2021-05-21 05:20] VITALS: TEMP 98.5
[2021-05-21 05:24] VITALS: O2SAT 99
[2021-05-21 05:26] VITALS: BP 109/63
--- NOTE | 2021-05-21 09:08 | RAD REPORT ---
EXAM DESCRIPTION: US - OB Limited - 05/20/2021 11:36 pm CLINICAL HISTORY: fall;Abd pain; pelvic pain, Preliminary findings provided at the time of the study. COMPARISON: OB Limited dated 05/03/2021 FINDINGS: Cervical canal is 4.4 cm with closed internal os. Amniotic fluid volume is normal. Anterio r placenta shows no abruption, marginal hematoma or other acute finding. Cardiac activity average 147 BPM. No gross anatomic abnormality. measurements were obtained. Es timated age is 18 weeks 2 days. EDSON is 10/19/2021. Prior study but a calculated EDSON of 10/23/2021. Th is 40 differential is not outside of the range normal. IMPRESSION: No , placental or amniotic fluid study identified.
--- NOTE | 2021-05-21 09:10 | RAD REPORT ---
EXAM DESCRIPTION: US - Abdomen Exam Limited - 05/20/2021 11:36 pm CLINICAL HISTORY: ABD PAIN COMPARISON: Abdomen Pelvis W Contrast dated 03/06/2020 FINDINGS: Limited 4 quadrant method scan was performed. Preliminary findings were provided at the ti me of the study. No blood or fluid identifiable in the peritoneal cavity. Gross evaluation of the mana or abdominal visceral shows no significant finding. IMPRESSION: Unremarkable four-quadrant abdomen fast scan.
== END 2021-05-21 05:11 | disposition home or self-care (01) ==
LOC: ER 20:27
DX: O26.892 Other specified pregnancy related conditions, second trimester (principal); W01.0XXA Fall on same level from slipping, tripping and stumbling without subsequent striking against object, initial encounter; Z3A.20 20 weeks gestation of pregnancy
CPT/HCPCS: 85025; 80048; 36415; 80076; 81003; 83690; 80307; 76705; 76815; 51702; 96374; 99284; J3480

== ENCOUNTER 2021-05-21 12:40 | Emergency (ER) | payer OTHER ==
--- NOTE | 2021-05-21 14:21 | RAD REPORT ---
EXAM DESCRIPTION: US - OB Limited - 05/21/2021 1:42 pm CLINICAL HISTORY: ABD PAIN, right flank pain, COMPARISON: OB Limited dated 05/20/2021; Renal Ultrasound-Limited dated 05/21/2021 FINDINGS: Limited sonography was performed and correlated with the prior day study. Cervical canal r emains long and closed. Placenta and amniotic fluid volume also remain in normal range without eviden ce for interval change. heart rate is normal. No new anatomic finding. IMPRESSION: Unremarkable limited examination as detailed. No changes from prior day study.
--- NOTE | 2021-05-21 14:24 | RAD REPORT ---
EXAM DESCRIPTION: US - Renal Ultrasound-Limited - 05/21/2021 1:42 pm CLINICAL HISTORY: r/o stone, right flank pain;Pain COMPARISON: Abdomen Exam Limited dated 05/20/2021; Abdomen Pelvis W Contrast dated 03/06/2020 FINDINGS: Limited sonographic evaluation of the right kidney was performed. The right kidney measures approximately 12 x 6 cm.. Renal cortical thickness and echogenicity are nor mal. No solid or cystic mass of the right kidney. There is a very slight fullness of the right-sided renal pelvis calices. This is not grossly different from an February 2020 study. IMPRESSION: Slight fullness of the right renal pelvis and calices noted but not clearly different fr 2019 CT study. No finding sufficient for hydronephrosis diagnosis. No acute right renal finding identifiable.
[2021-05-21] MEDS ORDERED: ACETAMINOPHEN 500 MG TAB ONE (14:49)
[2021-05-21 14:52] LABS: Absolute Lymphocytes (CBC) 1.3 K/uL (0.7-4.9); Basophils % 0.3 % (0-1.3); Hematocrit 32.1 % (36.0-45.0); Lymphocytes % 16.8 % (15.3-44.8); MPV 7.6 fL (7.6-11.3); RBC Red Blood Cell Count 3.78 M/uL (3.86-4.86)
[2021-05-21 14:59] LABS: Protime INR 0.92
[2021-05-21 15:32] LABS: ALT/SGPT 14 U/L (12-78); Albumin 3.1 g/dL (3.4-5.0); Alkaline Phosphatase 55 U/L (45-117); BUN Blood Urea Nitrogen 8 mg/dL (7-18); Bicarbonate 27 mmol/L (21-32); Bilirubin Direct < 0.1 mg/dL (0-0.2); Bilirubin Total 0.2 mg/dL (0.2-1.0); Glucose Level 80 mg/dL (74-106); Protein, Total 6.4 g/dL (6.4-8.2); Sodium Level 140 mmol/L (136-145)
[2021-05-21 15:33] LABS: AST/SGOT 15 U/L (15-37); Potassium 3.5 mmol/L (3.5-5.1)
--- NOTE | 2021-05-21 21:24 | EDPHYS ---
Physician Documentation [facility] Name: Cassidy France Age: 25 yrs Sex: Female : 1995 Arrival Date: 05/21/2021 Time: 12:42 Bed 5 Private MD: ED Physician Yash Martini HPI: 05/21 14:34 This 25 yrs old Female presents to ER via Wheelchair with complaints of 15 kb wks , Abdominal Pain. 14:34 The patient presents with abdominal pain right lower quadrant, in the left lower kb quadrant. Onset: The symptoms/episode began/occurred yesterday. The symptoms radiate to the right flank. Associated signs and symptoms: none. The symptoms are described as constant. Modifying factors: The symptoms are alleviated by nothing, the symptoms are aggravated by nothing. Severity of pain: At its worst the pain was moderate in the emergency department the pain is unchanged. The patient has not experienced similar symptoms in the past. The patient has been recently seen at the [facility] Emergency Department, yesterday. 14:36 Pt reports abd pain, right back pain, decreased movement and "my belly has gotten kb smaller" that started this morning. Pt was seen and cleared by OB twice yesterday and seen in the ED once. Labs and US wnl at that time.. REEL HOOKER: 13:01 5, Full Term 1, Premature 2, 1, Living 2, LMP 01/01/2021 ca1 14:40 5, 2, Living 2 kb Historical: - Allergies: 13:01 No Known Allergies; ca1 - PMHx: 13:01 Kidney Infections; Kidney stones; kidney swelling; ca1 - Immunization history:: Client reports having NOT received the Covid vaccine. - Social history:: Smoking status: Patient denies any tobacco usage or history of. ROS: 14:33 Constitutional: Negative for fever, chills, and weight loss. kb 14:33 Abdomen/GI: Positive for abdominal pain, Negative for nausea, vomiting, and diarrhea. 14:33 All other systems are negative. 14:34 Back: Positive for flank pain, on the right. kb Exam: 14:33 Constitutional: This is a well developed, well nourished patient who is awake, alert, kb and in no acute distress. Head/Face: Normocephalic, atraumatic. ENT: Moist Mucous membranes Cardiovascular: Regular rate and rhythm with a normal S1 and S2. No gallops, murmurs, or rubs. No pulse deficits. Respiratory: Respirations even and unlabored. No increased work of breathing, no retractions or nasal flaring. Skin: Warm, dry with normal turgor. Normal color. MS/ Extremity: Pulses equal, no cyanosis. Neurovascular intact. Full, normal range of motion. Neuro: Awake and alert, GCS 15, oriented to person, place, time, and situation. Moves all extremities. Normal gait. Psych: Awake, alert, with orientation to person, place and time. Behavior, mood, and affect are within normal limits. 14:33 Abdomen/GI: Inspection: gravid appearance, Bowel sounds: normal, Palpation: soft, in all quadrants, mild abdominal tenderness, in the right lower quadrant and left lower quadrant. 15:49 ECG was reviewed by the Attending Physician. kb Vital Signs: 12:59 BP 109 / 65; Pulse 88; Resp 18; Temp 99(TE); Pulse Ox 99% on R/A; Weight 66.22 kg (R); ca1 Height 5 ft. 3 in. (160.02 cm) (R); Pain 9/10; 21:16 BP 108 / 72; Pulse 65; Resp 16; Temp 98.6(O); Pulse Ox 100% on R/A; lp1 12:59 Body Mass Index 25.86 (66.22 kg, 160.02 cm) ca1 MDM: 13:00 Patient medically screened. kb 14:24 Data reviewed: vital signs, nurses notes. Data interpreted: Pulse oximetry: on room air kb is 99 %. Interpretation: normal. Counseling: I had a detailed discussion with the patient and/or guardian regarding: the historical points, exam findings, and any diagnostic results supporting the discharge/admit diagnosis, radiology results, the need for outpatient follow up, an OB/Gyne specialist, to return to the emergency department if symptoms worsen or persist or if there are any questions or concerns that arise at home. 14:25 Data reviewed: old medical records, labs, urine and US studies from yesterday reviewed. kb 14:31 ED course: Discussed diagnostic findings with pt and need for follow up with OB. Pt now kb reports she is suicidal and has been for a few days. States her plan would be to cut her wrists. Pt reports she has attempted suicide in the past and has been hospitalized multiple times for this. . 17:42 ED course: [facility] screener recommends inpatient treatment. ED course: Pt states she pedro will go to an inpatient facility on a voluntary basis. 20:21 Transition of care: After a detail discussion of the patient's case, care is kb transferred to Khoa Gautam NP. 21:23 Physician consultation: MD Burch was called at 21:23, was contacted at 21:23, pm1 regarding regarding transfer, patient's condition, and will see patient. 05/21 14:29 Order name: Acetaminophen kb 05/21 14:29 Order name: Basic Metabolic Panel kb 05/21 14:29 Order name: CBC with Diff 05/21 14:29 Order name: ETOH Level 05/21 14:29 Order name: Hepatic Function 05/21 14:29 Order name: PT-INR; Complete Time: 14:59 kb 05/21 14:29 Order name: Ptt, Activated; Complete Time: 14:59 kb 05/21 14:29 Order name: Salicylate; Complete Time: 15:35 kb 05/21 14:30 Order name: Acetaminophen Level; Complete Time: 15:35 EDMS 05/21 14:30 Order name: Basic Metabolic Panel; Complete Time: 15:35 EDMS 05/21 14:30 Order name: CBC with Automated Diff; Complete Time: 14:56 EDMS 05/21 14:30 Order name: Alcohol Serum/Plasma; Complete Time: 15:35 EDMS 05/21 14:30 Order name: Liver (Hepatic) Function; Complete Time: 15:35 EDMS 05/21 12:51 Order name: FHT's; Complete Time: 14:30 kb 05/21 13:00 Order name: US OB Limited; Complete Time: 14:22 kb 05/21 13:00 Order name: US Rp Exam Limited; Complete Time: 14:26 kb 05/21 14:29 Order name: EKG; Complete Time: 14:30 kb 05/21 14:29 Order name: EKG - Nurse/Tech; Complete Time: 15:29 kb 05/21 14:29 Order name: Labs collected and sent; Complete Time: 15:14 kb 05/21 14:29 Order name: Suicide Precautions; Complete Time: 15:14 kb 05/21 14:29 Order name: Suicide Screening (Alejandra); Complete Time: 15:14 kb 05/21 16:26 Order name: SARS-COV-2 RT PCR; Complete Time: 16:35 EDMS 05/21 18:23 Order name: Diet Regular; Complete Time: 18:24 jd3 EC:49 Rate is 64 beats/min. Rhythm is regular. QRS [place] is Normal. OK interval is normal at kb 118 msec. QRS interval is normal at 90 msec. QT interval is normal at 402 msec. Administered Medications: 14:30 Drug: Tylenol 1000 mg Route: PO; jd3 21:35 Drug: Tylenol 650 mg Route: PO; bs2 23:17 Follow up: Response: No adverse reaction lp1 Disposition: 05/22 13:25 Co-signature as Attending Physician, Yash Martini MD I agree with the assessment and [facility] plan of care. Disposition Summary: 05/21/21 21:24 Transfer Ordered Transfer Location: [facility] pm1 Reason: Specialty pm1 Condition: Stable pm1 Problem: new pm1 Symptoms: have improved pm1 Accepting Physician: Kiersten GRIFFITH(05/21/21 23:22) lp1 Diagnosis - Suicidal ideations pm1 Discharge Instructions: - Discharge Summary Sheet tt3 Forms: - Medication Reconciliation Form tt3 - SBAR form tt3 Signatures: Dispatcher [employer] Guerline Lundberg FNP-C FNP-Yash Gayle MD MD cha Pena, Laura RN RN lp1 Khoa Gautam, DIRECTOR NEW PRODUCT DIRECTOR NEW PRODUCT pm1 Kurtis Burrows RN RN jd3 Acob, Cheryl, RN RN ca1 Jacqueline Grayson bs2 Corrections: (The following items were deleted from the chart) 05/21 14:34 14:33 Abdomen/GI: Positive for abdominal pain, Negative for nausea, vomiting, and kb diarrhea, kb 14:37 14:31 ED course: Discussed diagnostic findings with pt. Pt now reports she is suicidal kb and has been for a few days. States her plan would be to cut her wrists. Pt reports she has attempted suicide in the past and has been hospitalized multiple times for this. . kb 15:33 14:39 CORONAVIRUS+MR.LAB.BRZ ordered. EDSD EDMS 21:48 21:23 Physician consultation: MD Zen Lopez was called at 21:23, was contacted at pm1 :, regarding regarding transfer, patient's condition, and will see patient pm1 : 21:24 Zen Lopez MD pm1 pm1 23: 21:48 Kiersten GRIFFITH pm1 lp1
--- NOTE | 2021-05-21 21:24 | ER ---
Nurse's Notes [facility] Name: Cassidy France Age: 25 yrs Sex: Female : 1995 Arrival Date: 05/21/2021 Time: 12:42 Bed 5 Private MD: Diagnosis: Suicidal ideations Presentation: 05/21 12:59 Chief complaint: Patient states: R flank pain since this morning. I was here and they ca1 did cath here since then I have been hurting. Coronavirus screen: Client denies travel out of the [place] in the last 14 days. At this time, the client does not indicate any symptoms associated with coronavirus-19. Ebola Screen: Patient negative for fever greater than or equal to 101.5 degrees Fahrenheit, and additional compatible Ebola Virus Disease symptoms Patient denies exposure to infectious person. Patient denies travel to an Ebola-affected area in the 21 days before illness onset. No symptoms or risks identified at this time. Initial Sepsis Screen: Does the patient meet any 2 criteria? No. Patient's initial sepsis screen is negative. Does the patient have a suspected source of infection? No. Patient's initial sepsis screen is negative. Risk Assessment: Do you want to hurt yourself or someone else? Patient reports no desire to harm self or others. Onset of symptoms was May 21, 2021. 12:59 Method Of Arrival: Wheelchair ca1 12:59 Acuity: DERICK 3 ca1 14:30 Acuity: DERICK 2 jd3 PRECIPITATE WASHER: 13:01 5, Full Term 1, Premature 2, 1, Living 2, LMP 01/01/2021 ca1 14:40 5, 2, Living 2 kb Historical: - Allergies: 13:01 No Known Allergies; ca1 - PMHx: 13:01 Kidney Infections; Kidney stones; kidney swelling; ca1 - Immunization history:: Client reports having NOT received the Covid vaccine. - Social history:: Smoking status: Patient denies any tobacco usage or history of. Screenin:11 Abuse screen: Denies threats or abuse. Nutritional screening: No deficits noted. jd3 Tuberculosis screening: No symptoms or risk factors identified. Fall Risk Ambulatory Aid- None/Bed Rest/Nurse Assist (0 pts). Gait- Normal/Bed Rest/Wheelchair (0 pts) Mental Status- Oriented to own ability (0 pts). Total Baldwin Fall Scale indicates No Risk (0-24 pts). Assessment: 14:15 General: Appears in no apparent distress. comfortable, unkempt, Behavior is calm, jd3 cooperative, appropriate for age. Pain: Complains of pain in abdomen Quality of pain is described as aching, tender. Neuro: Level of Consciousness is awake, alert, obeys commands, Oriented to person, place, time, situation. Cardiovascular: Capillary refill < 3 seconds Patient's skin is warm and dry. Respiratory: Airway is patent Respiratory effort is even, unlabored, Respiratory pattern is regular, symmetrical, Denies cough, shortness of breath. GI: Abdomen is round non-distended, Abd is soft X 4 quads Abdomen is tender to palpation X 4 quads. Reports lower abdominal pain, Patient currently denies diarrhea, nausea, vomiting. : No signs and/or symptoms were reported regarding the genitourinary system. EENT: No signs and/or symptoms were reported regarding the EENT system. Derm: Skin is intact, Skin is dry, Skin is normal, Skin temperature is warm. Musculoskeletal: Circulation, motion, and sensation intact. Range of motion: intact in all extremities. 14:30 Reassessment: Patient and/or family updated on plan of care and expected duration. Pain jd3 level reassessed. Patient is alert, oriented x 3, equal unlabored respirations, skin warm/dry/pink. pt reports having active suicidal thoughts. provider notified. 15:14 Reassessment: Patient appears in no apparent distress at this time. No changes from jd3 previously documented assessment. Patient and/or family updated on plan of care and expected duration. Pain level reassessed. Patient is alert, oriented x 3, equal unlabored respirations, skin warm/dry/pink. sitter at bedside. 16:00 Reassessment: Patient appears in no apparent distress at this time. No changes from jd3 previously documented assessment. Patient and/or family updated on plan of care and expected duration. Pain level reassessed. Patient is alert, oriented x 3, equal unlabored respirations, skin warm/dry/pink. pt resting in bed. 17:00 Reassessment: Patient appears in no apparent distress at this time. No changes from jd3 previously documented assessment. Patient and/or family updated on plan of care and expected duration. Pain level reassessed. Patient is alert, oriented x 3, equal unlabored respirations, skin warm/dry/pink. 17:25 Reassessment: [place] at bedside. jd3 18:00 Reassessment: Patient appears in no apparent distress at this time. Patient and/or jd3 family updated on plan of care and expected duration. Pain level reassessed. Patient is alert, oriented x 3, equal unlabored respirations, skin warm/dry/pink. [facility] recommending pt to be transferred to psych facility. pt agreeing to go voluntarily. 20:39 Reassessment: Nurse to nurse report given to JULITA Mcclellan at [facility]. lp1 21:10 Reassessment: Patient appears in no apparent distress at this time. Patient is alert, lp1 oriented x 3, equal unlabored respirations, skin warm/dry/pink. Patient appears cooperative; aware of plan for transfer, voluntary; Patient given sandwich and juice at this time. 23:00 Reassessment: [facility] at bedside for patient transfer to [facility]. lp1 23:16 Reassessment: Patient appears in no apparent distress at this time. Patient with steady lp1 gait to transfer to EMS stretcher;Patient Belongings given to EMS, aware of weapons in belongings bags. Psych: 15:00 [place] Suicide Severity Screening: In the past month, have you wished you were jd3 or wished you could go to sleep and not wake up? Patient responds "yes." Based off the client's responses additional C-SSRS screening is required. "In the past month, have you actually had any thoughts of killing yourself?" Patient responds "yes." Based off the client's response additional [place] suicide severity screening questions to be further documented on paper forms. "In your lifetime, have you ever done anything, started to do anything, or prepared to do anything to end your life?" Patient responds "yes." Patient reports suicidal intent within 3 past months. Subjective: Patient's mood is sad, Delusions are denied, Hallucinations are denied Having thoughts of suicide. Plan for suicide is cut wrist with knife. Objective: Patient is cooperative, Speech is normal, Affect is appropriate. Interventions: Removed personal items and placed in bag. Patient placed in hospital gown. Searched person for dangerous items. Urine collected and sent for urine drug test. Belonging list filled out. Safety Checks: Personal items have been removed. Door is open. Visitors are present. Pt denies substance abuse. 23:17 Commitment: Patient will be a voluntary commitment. lp1 Vital Signs: 12:59 BP 109 / 65; Pulse 88; Resp 18; Temp 99(TE); Pulse Ox 99% on R/A; Weight 66.22 kg (R); ca1 Height 5 ft. 3 in. (160.02 cm) (R); Pain 9/10; 21:16 BP 108 / 72; Pulse 65; Resp 16; Temp 98.6(O); Pulse Ox 100% on R/A; lp1 12:59 Body Mass Index 25.86 (66.22 kg, 160.02 cm) ca1 Vitals: 15:14 Heart Tones 155 bpm. jd3 ED Course: 12:42 Patient arrived in ED. mr 12:45 Guerline Graham, [facility] kb 12:45 Yash Martini MD is Attending Physician. kb 13:01 Triage completed. ca1 13:01 Arm band placed on right wrist. ca1 13:42 US OB Limited In Process Unspecified. EDMS 13:42 US Rp Exam Limited In Process Unspecified. EDMS 14:16 Kurtis Burrows, JULITA is Primary Nurse. jd3 14:45 faxed patient records to [facility] in attempt to transfer. eb 15:12 Patient has correct armband on for positive identification. Bed in low position. Call jd3 light in reach. Side rails up X 1. Pulse ox on. NIBP on. 15:20 Conchis Benites from [facility] called to decline the patient in transfer due to the eb patient being . they do not have the capabilities to take care of patients she recommends trying [facility]. 15:24 faxed patient records to [facility] in attempt to transfer the patient. eb 15:31 called the [facility] Crisis Line at [phone] spoke with Damir he will call out the eb screener community action worker and someone will call us back. 18:03 Faxed pt chart to [facility], [facility] tt3 [facility], [facility], [facility], [facility] and re-faxed pt chart to [facility]. 18:58 [facility] called back and stated they did not have an appropriate bed for the pt. tt3 Information to be passed on to DAMIAN Martinez, pt provider. Informed Calixto Diego RN, Charge Nurse. 20:14 Hepatic Function Sent. bs2 20:14 ETOH Level Sent. bs2 20:14 CBC with Diff Sent. bs2 20:14 Basic Metabolic Panel Sent. bs2 20:14 Acetaminophen Sent. bs2 20:49 Khoa Gautam NP [facility] kb 23:14 No provider procedures requiring assistance completed. Patient did not have IV access lp1 during this emergency room visit. Administered Medications: 14:30 Drug: Tylenol 1000 mg Route: PO; jd3 21:35 Drug: Tylenol 650 mg Route: PO; bs2 23:17 Follow up: Response: No adverse reaction lp1 Outcome: 21:24 ER care complete, transfer ordered by MD. pm1 23:16 Transferred by ground EMS to other acute care facility: [facility]. lp1 Transfer form completed. X-rays sent w/ patient. 23:16 Condition: stable 23:16 Instructed on the need for transfer. 23:22 Patient left the ED. lp1 Signatures: Dispatcher [employer] EDMS Guerline Graham, TAYLOR SALGADO-Beryl Minerva RodriguezNina RN RN lp1 Khoa Gautam NP STACKER TENDER pm1 Kurtis Burrows RN RN jd3 Botello, Elizabeth eb Acob, Cheryl, RN RN ca1 Trim, Tyler tt3 Jacqueline Grayson bs2 Corrections: (The following items were deleted from the chart) 15:14 14:30 Reassessment: pt reports having active suicidal thoughts. provider notified. jd3 jd3
[2021-05-21] MEDS ORDERED: ACETAMINOPHEN 325 MG TABLET ONE (21:51)
[2021-05-21 23:42] VITALS: BP 108/72; TEMP 98.6; O2SAT 100
--- NOTE | 2021-05-23 16:14 | EKG ---
Test Date: 2021-05-21 Test Time: 15:25:33 Analytic Programmer: GRUPO MEASUREMENT RESULTS: Intervals: Rate: 64 TX: 118 QRSD: 90 QT: 402 QTc: 414 [place]: P: 32 TX: 118 QRS: 66 T: 41 INTERPRETIVE STATEMENTS: Normal sinus rhythm Normal ECG No previous ECG available for comparison Electronically Signed On 05-23-21 16:09:03 CDT by Janes Sweeney
== END 2021-05-21 23:22 ==
LOC: ER 12:40
DX: O99.342 Other mental disorders complicating pregnancy, second trimester (principal); Z20.822 Contact with and (suspected) exposure to COVID-19
CPT/HCPCS: 93005; 85025; 80048; 36415; 80320; 80329 ×2; 85610; 80076; 85730; 76815; 76775; 99285; U0003

== ENCOUNTER 2021-06-08 21:06 | Emergency (ER) | payer OTHER ==
--- NOTE | 2021-06-08 23:31 | ER ---
Nurse's Notes [facility] Name: Cassidy France Age: 25 yrs Sex: Female : 1995 Arrival Date: 06/08/2021 Time: 21:10 Bed Waiting Private MD: Diagnosis: Presentation: 06/08 21:25 Chief complaint:. Coronavirus screen: Client denies travel out of the [place] in the last bb 14 days. At this time, the client does not indicate any symptoms associated with coronavirus-19. Ebola Screen: Patient negative for fever greater than or equal to 101.5 degrees Fahrenheit, and additional compatible Ebola Virus Disease symptoms Patient denies exposure to infectious person. Patient denies travel to an Ebola-affected area in the 21 days before illness onset. No symptoms or risks identified at this time. Patient positive for the following Ebola Virus Disease associated symptoms:. 21:25 Method Of Arrival: Ambulatory bb 21:46 Initial Sepsis Screen: Does the patient have a suspected source of infection? No. bs2 Patient's initial sepsis screen is negative. Risk Assessment: Do you want to hurt yourself or someone else? Patient reports no desire to harm self or others. 21:46 Acuity: DERICK 4 bs2 Triage Assessment: 21:29 General: Appears in no apparent distress. uncomfortable, slender, obese, well groomed, bb Behavior is calm, cooperative, appropriate for age, Smells of. EENT: Reports blurred vision pain. [employer] POLICE OFFICER: 21:29 5, Premature 5 bb Historical: - Allergies: 21:28 No Known Allergies; bb - PMHx: 21:28 Kidney Infections; bb - PSHx: 21:28 None; bb - Immunization history:: Client reports having NOT received the Covid vaccine. Flu vaccine is not up to date. - Social history:: Smoking status: unknown Patient/guardian denies using. Vital Signs: 21:25 BP 106 / 75 LL Sitting (auto/lg); Pulse 99 RA; Resp 22; Temp 98.2; Pulse Ox 99% on R/A; bs2 Weight 58.97 kg; Height 5 ft. 3 in. (160.02 cm) (M); Pain 10/10; 21:25 Body Mass Index 23.03 (58.97 kg, 160.02 cm) bs2 Vitals: 21:29 Heart Tones . bb ED Course: 21:10 Patient arrived in ED. es 21:47 Triage completed. bs2 23:18 Patient's name was called from ER lobby. No response. bb 23:30 Patient's name was called from ER lobby. No response. Unable to locate patient. Will bb disposition as left without being seen by a provider. Administered Medications: No medications were administered Outcome: 23:30 Patient left the ED. bs2 Signatures: Dania Kurtz Brenda, RN RN bb Jacqueline Grayson RN RN bs2 Corrections: (The following items were deleted from the chart) 21: 21:28 PMHx: Kidney stones; bb bb 21:28 PMHx: kidney swelling; bb bb 22:02 21:25 BP 106 / 75 Sitting Auto L Leg Large; Pulse 22bpm; Right ArmResp 99bpm; Pulse Ox bs2 99% RA; Temp 98.2F; 58.97 kg; Height 5 ft. 3 in. Measured; BMI: 23.0; Pain 10/10; bb
[2021-06-09 01:37] VITALS: BP 106/75; TEMP 98.2; O2SAT 99
== END 2021-06-08 23:30 | disposition left against medical advice (07) ==
LOC: ER 21:06
DX: Z53.21 Procedure and treatment not carried out due to patient leaving prior to being seen by health care provider (principal)
CPT/HCPCS: 99282

== ENCOUNTER 2022-02-26 13:02 | Emergency (ER) | payer OTHER ==
[2022-02-26 14:04] LABS: Urine Blood 2+ (Negative); Urine Glucose Negative (Negative); Urine Protein Negative (Negative); Urine Specific Gravity 1.015 (1.005-1.030)
[2022-02-26 14:52] LABS: Urine Bacteria <20 /HPF (<20)
--- NOTE | 2022-02-26 15:33 | EDPHYS ---
Physician Documentation [facility] Name: Cassidy France Age: 26 yrs Sex: Female : 1995 Arrival Date: 02/26/2022 Time: 13:06 Bed Waiting Private MD: ED Physician Clay Alva HPI: 02/26 13:55 This 26 yrs old Female presents to ER via Ambulatory with complaints of Abd Burning pm1 sensation. 13:55 The patient presents with abdominal pain suprapubic area. Onset: The symptoms/episode pm1 began/occurred 2 day(s) ago. The symptoms radiate to the right flank. Associated signs and symptoms: Pertinent positives: dysuria, Pertinent negatives: nausea, vomiting, and diarrhea, chest pain, fever, shortness of breath. The symptoms are described as burning. Modifying factors: The symptoms are alleviated by nothing, the symptoms are aggravated by nothing. Severity of pain: in the emergency department the pain is actually worse. The patient has experienced similar episodes in the past, a few times, today's symptoms are similar, to previous kidney stones. The patient has not recently seen a physician. Patient also reporting onset of menstrual cycle yesterday that started as usual but reports clots with her menstrual cycle today. 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 Flu vaccine is up to date. - Social history:: Smoking status: Patient reports the use of cigarette tobacco products, smokes one pack cigarettes per day. ROS: 13:55 Constitutional: Negative for fever, chills, and weight loss, Cardiovascular: Negative pm1 for chest pain, palpitations, and edema, Respiratory: Negative for shortness of breath, cough, wheezing, and pleuritic chest pain. 13:55 MS/Extremity: Negative for injury and deformity, Skin: Negative for injury, rash, and discoloration, Neuro: Negative for headache, weakness, numbness, tingling, and seizure. 13:55 Abdomen/GI: Positive for abdominal pain, of the suprapubic area, Negative for nausea, vomiting, and diarrhea. 13:55 Back: Positive for flank pain, on the right. 13:55 : Positive for urinary frequency, small amounts. 13:55 All other systems are negative. Exam: 13:55 Constitutional: This is a well developed, well nourished patient who is awake, alert, pm1 and in no acute distress. Head/Face: Normocephalic, atraumatic. 13:55 Skin: Warm, dry with normal turgor. Normal color with no rashes, no lesions, and no evidence of cellulitis. MS/ Extremity: Pulses equal, no cyanosis. Neurovascular intact. Full, normal range of motion. 13:55 Cardiovascular: Exam negative for acute changes, Rate: normal, Rhythm: regular, Pulses: no pulse deficits are appreciated. 13:55 Respiratory: Exam negative for acute changes, respiratory distress, shortness of breath, Breath sounds: are clear throughout. 13:55 Abdomen/GI: Inspection: abdomen appears normal, Palpation: abdomen is soft and non-tender, in all quadrants. 13:55 Back: CVA tenderness, that is mild, is noted on the right. 13:55 Neuro: Exam negative for acute changes, Orientation: is normal, Mentation: is normal, Motor: is normal, moves all fours, Gait: is steady, at a normal pace, without difficulty. Vital Signs: 13:32 BP 187 / 99; Pulse 99; Resp 19 S; Temp 98.2(TE); Pulse Ox 100% on R/A; Weight 63.5 kg jd3 (R); Height 5 ft. 3 in. (160.02 cm) (R); Pain 7/10; 13:32 Body Mass Index 24.80 (63.50 kg, 160.02 cm) jd3 MDM: 14:07 Patient medically screened. pm1 14:25 Data reviewed: vital signs. Data interpreted: Pulse oximetry: on room air is 100 %. pm1 Interpretation: normal. 15:31 ED course: Patient has apparently left the ER. No answer to the ER lobby two times per pm1 triage nurse. 02/26 13:55 Order name: Urine Microscopic Only; Complete Time: 15:03 pm1 02/26 14:05 Order name: Urine Dipstick-Ancillary; Complete Time: 14:07 EDAK 02/26 14:15 Order name: Urine --Ancillary (enter results); Complete Time: 15:44 bd 02/26 13:55 Order name: IV Saline Lock pm1 02/26 13:55 Order name: Labs collected and sent pm1 02/26 13:55 Order name: Urine Dipstick-Ancillary (obtain specimen) pm1 02/26 14:55 Order name: Urine Culture EDAK 02/26 13:55 Order name: Urine Test (obtain specimen) pm1 Administered Medications: No medications were administered Disposition: 19:14 Co-signature as Attending Physician, Clay Alva MD. rn Disposition Summary: 02/26/22 15:32 Discharge Ordered Location: Home pm1 Problem: new pm1 Symptoms: are unchanged pm1 Condition: Undetermined pm1 Diagnosis - Abdominal pain, unspecified pm1 Followup: pm1 - With: Emergency Department - When: As needed - Reason: Worsening of condition Followup: pm1 - With: Private Physician - When: 2 - 3 days - Reason: Recheck today's complaints, Continuance of care, Re-evaluation by your physician Discharge Instructions: - Discharge Summary Sheet pm1 - Abdominal Pain, Adult pm1 Forms: - Medication Reconciliation Form pm1 - Thank You Letter pm1 - Antibiotic Education pm1 - Prescription Opioid Use pm1 Signatures: Dispatcher [employer] Clay Sheth MD MD rn Marinas, Patrick, NP LEARNING AND DEVELOPMENT CONSULTANT pm1 Kurtis Burrows, RN RN jd3
--- NOTE | 2022-02-26 15:33 | ER ---
Nurse's Notes [facility] Name: Cassidy France Age: 26 yrs Sex: Female : 1995 Arrival Date: 02/26/2022 Time: 13:06 Bed Waiting Private MD: Diagnosis: Abdominal pain, unspecified Presentation: 02/26 13:29 Chief complaint: Patient states: "I have been having this burning feeling in my lower jd3 stomach just today. I am also having problems urinating as well. I started my menstrual cycle and it started normal, but now it is just clots.". Coronavirus screen: At this time, the client does not indicate any symptoms associated with coronavirus-19. Ebola Screen: No symptoms or risks identified at this time. Initial Sepsis Screen: Does the patient meet any 2 criteria? No. Patient's initial sepsis screen is negative. Does the patient have a suspected source of infection? No. Patient's initial sepsis screen is negative. Risk Assessment: Do you want to hurt yourself or someone else? Patient reports no desire to harm self or others. Onset of symptoms was February 26, 2022. 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 Flu vaccine is up to date. - Social history:: Smoking status: Patient reports the use of cigarette tobacco products, smokes one pack cigarettes per day. Screenin:47 Abuse screen: Denies threats or abuse. Nutritional screening: No deficits noted. jd3 Tuberculosis screening: No symptoms or risk factors identified. Fall Risk None identified. Assessment: 13:30 General: Appears in no apparent distress. comfortable, Behavior is calm, cooperative, jd3 appropriate for age. Pain: Complains of pain in abdomen Quality of pain is described as sharp, tender. Neuro: Level of Consciousness is awake, alert, obeys commands, Oriented to person, place, time, situation. Cardiovascular: Denies chest pain, Capillary refill < 3 seconds Patient's skin is warm and dry. Respiratory: Airway is patent Respiratory effort is even, unlabored, Respiratory pattern is regular, symmetrical, Denies cough, shortness of breath. GI: Abdomen is round non-distended, Reports lower abdominal pain. : Reports urgency. EENT: No signs and/or symptoms were reported regarding the EENT system. Derm: Skin is intact, Skin is dry, Skin is normal, Skin temperature is warm. Musculoskeletal: Circulation, motion, and sensation intact. Range of motion: intact in all extremities. 15:50 Reassessment: pt eloped [facility]. jd3 Vital Signs: 13:32 BP 187 / 99; Pulse 99; Resp 19 S; Temp 98.2(TE); Pulse Ox 100% on R/A; Weight 63.5 kg jd3 (R); Height 5 ft. 3 in. (160.02 cm) (R); Pain 7/10; 13:32 Body Mass Index 24.80 (63.50 kg, 160.02 cm) jd3 ED Course: 13:06 Patient arrived in ED. mr 13:31 Triage completed. jd3 13:33 Arm band placed on. jd3 13:54 Khoa Gautam NP is PHCP. pm1 13:54 Clay Alva MD is Attending Physician. pm1 15:22 Patient's name was called from ER Scripted. No response. aa5 15:23 Andrew Garcia RN is Primary Nurse. jb4 15:30 Patient's name was called from ER lobHepatoChem. No response. jd3 15:47 Patient's name was called from ER lobby. No response. jd3 15:49 Patient has correct armband on for positive identification. Pulse ox on. NIBP on. jd3 15:49 No provider procedures requiring assistance completed. Patient did not have IV access jd3 during this emergency room visit. Administered Medications: No medications were administered Outcome: 15:32 Discharge ordered by . pm1 15:49 Discharged to home ambulatory. jd3 15:49 Condition: stable 15:49 Discharge instructions given to patient, Instructed on follow up and referral plans. 15:51 Patient left the ED. jd3 Signatures: Minerva Rodriguez Audri, RN RN aa5 Khoa Gautam, MYA ASSISTANT PROFESSOR IN FAMILY STUDIES pm1 Andrew Garcia RN RN jb4 Kurtis Burrows RN RN jd3 Corrections: (The following items were deleted from the chart) 13:31 13:29 Chief complaint: Patient states: "I have been having this burning feeling in my jd3 lower stomach just today. I am also having problems urinating as well." jd3 13:41 13:29 Acuity: DERICK 3 jd3 jd3 15:49 15:20 General: Appears Behavior is calm, cooperative, appropriate for age, jd3 jd3
[2022-02-26 15:43] LABS: Urine Specific Gravity/Preg 1.015 (1.005-1.030)
[2022-02-26 17:22] VITALS: BP 187/99; TEMP 98.2; O2SAT 100
== END 2022-02-26 15:51 | disposition home or self-care (01) ==
LOC: ER 13:02
DX: R10.9 Unspecified abdominal pain (principal); R30.0 Dysuria; R35.0 Frequency of micturition; F17.210 Nicotine dependence, cigarettes, uncomplicated
CPT/HCPCS: 81003; 81015; 81025; 87086; 87088; 99283

== ENCOUNTER → 2023-11-07 | Emergency (ER) | payer OTHER ==
[~2023-11-07] MED LIST: LORazepam 2 MG/ML VIAL ONE
--- NOTE | 2023-11-07 07:26 | EDPHYS ---
Physician Documentation [facility] Name: Cassidy France Age: 28 yrs Sex: Female : 1995 Arrival Date: 11/07/2023 Time: : Bed 4 Private MD: ED Physician Ruben Wilson HPI: 11/07 06:26 This 28 yrs old Female presents to ER via Unassigned with complaints of Pt sp4 states she is 38 wks gestation and feel she is in active labor. 06:29 28-year-old female presents with acute stimulant intoxication. Patient states she is sp4 feeling 38 weeks . On initial exam there is no sign of indicative of 38-week gestation.. . Historical: - Allergies: 06:28 No Known Allergies; jb4 - PMHx: 06:28 Kidney Infections; adhd (Kidney Infections); Bipolar disorder; jb4 - PSHx: 06:28 kidney stents; jb4 - Immunization history:: Adult Immunizations up to date. - Social history:: Smoking status: Patient reports the use of cigarette tobacco products, smokes one pack cigarettes per day. Patient uses street drugs, marijuana. - Family history:: not pertinent. ROS: 06:29 Constitutional: Negative for fever, chills, and weight loss, full ROS is not sp4 available secondary to meth intoxication. 06:29 All other systems are negative, Exam: 06:29 Constitutional: This is a well developed, well nourished patient who is awake, alert, sp4 patient is acutely intoxicated appears to have methamphetamine intoxication. Mild agitation. Neurotic excoriations Head/Face: Normocephalic, atraumatic. Eyes: Pupils equal round and reactive to light, extra-ocular motions intact. Lids and lashes normal. Conjunctiva and sclera are not injected. Cornea within normal limits. Periorbital areas with no swelling, redness, or edema. ENT: Nares patent. No nasal discharge, no septal abnormalities noted. Tympanic membranes are normal and external auditory canals are clear. Oropharynx with no redness, swelling, or masses, exudates, or evidence of obstruction, uvula midline. Mucous membranes moist. Neck: Trachea midline, no thyromegaly or masses palpated, and no cervical lymphadenopathy. Supple, full range of motion without nuchal rigidity, or vertebral point tenderness. Chest/axilla: Normal chest wall appearance and motion. Nontender with no deformity. No lesions are appreciated. Cardiovascular: Regular rate and rhythm with a normal S1 and S2. No gallops, murmurs, or rubs. Normal PMI, no JVD. No pulse deficits. Respiratory: Lungs have equal breath sounds bilaterally, clear to auscultation and percussion. No rales, rhonchi or wheezes noted. No increased work of breathing, no retractions or nasal flaring. Abdomen/GI: Soft, non-tender, with normal bowel sounds. No distension or tympany. No guarding or rebound. No evidence of tenderness throughout. Back: No spinal tenderness. No costovertebral tenderness. Skin: Warm, dry with normal turgor. Normal color with no rashes, no lesions, and no evidence of cellulitis. MS/ Extremity: Pulses equal, no cyanosis. Neurovascular intact. Full, normal range of motion. Neuro: Awake and alert, GCS 15, oriented to person, Cranial nerves II-XII grossly intact. Motor strength 5/5 in all extremities. Sensory grossly intact. Psych: Awake, alert, with orientation to person, acutely anxious, signs of acute methamphetamine intoxication Vital Signs: 06:25 BP 123 / 89; Pulse 102; Resp 16; Pulse Ox 100% on R/A; Weight 54.43 kg (R); Height 5 jb4 ft. 3 in. (R); 06:49 BP 137 / 84; Pulse 97; Resp 18 S; Pulse Ox 100% on R/A; as6 07:51 BP 118 / 78; Pulse 89; Resp 18; Temp 98; Pulse Ox 98% on R/A; ph 06:25 Body Mass Index 21.26 (54.43 kg, 160.02 cm) jb4 MDM: 06:48 Patient medically screened. sp4 07:24 Differential Diagnosis altered mental status. Data reviewed: vital signs, nurses notes, sp4 old medical records, lab test result(s), Beta HCG: HCG < 1 -No sign of . ED course: Patient is clearly intoxicated on methamphetamines. Patient is claiming to be with test serum based is negative today. Patient was given IV Ativan for acute agitation. Patient is stable for discharge home with recommendation to stay away from crystal meth. . 11/07 06:29 Order name: HCG-Quantitative; Complete Time: 07:21 sp4 Administered Medications: 06:45 Drug: Ativan IVP 2 mg IVP once Route: IVP; Site: right antecubital; vc1 09:40 Follow up: Response: No adverse reaction ph Disposition Summary: 11/07/23 07:26 Discharge Ordered Notes: Discontinue use of Methamphetamines Location: Home sp4 Problem: new sp4 Symptoms: have improved sp4 Condition: Stable sp4 Diagnosis - Methamphetamine use disorder, acute methamphetamine intoxication sp4 Followup: sp4 - With: Private Physician - When: 7 - 10 days - Reason: Recheck today's complaints Discharge Instructions: - Discharge Summary Sheet sp4 - Methamphetamines Use Disorder sp4 Forms: - Patient Portal Instructions sp4 Signatures: Dispatcher [employer] Andrew Valdes RN RN jb4 Mery Mckee RN RN vc1 Ruben Wilson MD MD sp4 Akua Suresh RN ph Corrections: (The following items were deleted from the chart) 06:51 06:29 TEST, SERUM+SC.LAB.BRZ ordered. YOHANNES RIOSMS
--- NOTE | 2023-11-07 07:26 | ER ---
Nurse's Notes [facility] Name: Cassidy France Age: 28 yrs Sex: Female : 1995 Arrival Date: 11/07/2023 Time: 06:22 Bed 4 Private MD: Diagnosis: Methamphetamine use disorder, acute methamphetamine intoxication Presentation: 11/07 06:25 Chief complaint: Patient states: I think i am in labor and I am 38 weeks . I jb4 felt a gush yesterday and My cervix is open. Coronavirus screen: At this time, the client does not indicate any symptoms associated with coronavirus-19. Ebola Screen: No symptoms or risks identified at this time. Initial Sepsis Screen: Does the patient meet any 2 criteria? No. Patient's initial sepsis screen is negative. Does the patient have a suspected source of infection? No. Patient's initial sepsis screen is negative. Risk Assessment: Do you want to hurt yourself or someone else? Patient reports no desire to harm self or others. Onset of symptoms was November 07, 2023. Transition of care: patient was not received from another setting of care. 06:25 Method Of Arrival: Wheelchair jb4 06:25 Acuity: DERICK 3 jb4 Historical: - Allergies: 06:28 No Known Allergies; jb4 - PMHx: 06:28 Kidney Infections; adhd (Kidney Infections); Bipolar disorder; jb4 - PSHx: 06:28 kidney stents; jb4 - Immunization history:: Adult Immunizations up to date. - Social history:: Smoking status: Patient reports the use of cigarette tobacco products, smokes one pack cigarettes per day. Patient uses street drugs, marijuana. - Family history:: not pertinent. Screenin:49 [facility] ED Fall Risk Assessment (Adult) Score/Fall Risk Level 0 - 2 = Low Risk. Abuse as6 screen: Denies threats or abuse. Denies injuries from another. Nutritional screening: No deficits noted. Tuberculosis screening: No symptoms or risk factors identified. Assessment: 06:44 General: Appears slender, unkempt, Behavior is cooperative, anxious, restless, pt as6 talking to self and staring into space . General: pt report unknown last menstrual cycle. "I don't know when it was, my periods are very irregular. I had some spotting last month for about an hour" . Pain: Complains of pain in low back area. Neuro: Level of Consciousness is awake, alert, obeys commands, Oriented to person, place, time, situation. GI: Abdomen is flat, non-distended. 07:50 Reassessment: Patient appears in no apparent distress at this time. Patient and/or ph family updated on plan of care and expected duration. Pain level reassessed. Pt asleep w/ stable VS, awakens to verbal stimuli, IV d/c, attempted to call family/friend for ride home, no answer. Vital Signs: 06:25 BP 123 / 89; Pulse 102; Resp 16; Pulse Ox 100% on R/A; Weight 54.43 kg (R); Height 5 jb4 ft. 3 in. (R); 06:49 BP 137 / 84; Pulse 97; Resp 18 S; Pulse Ox 100% on R/A; as6 07:51 BP 118 / 78; Pulse 89; Resp 18; Temp 98; Pulse Ox 98% on R/A; ph 06:25 Body Mass Index 21.26 (54.43 kg, 160.02 cm) jb4 ED Course: 06:23 Patient arrived in ED. jj6 06:25 Ruben Wilson MD is Attending Physician. sp4 06:28 Triage completed. jb4 06:28 Arm band placed on right wrist. jb4 06:32 Ezra Shah, JULITA is Primary Nurse. as6 06:43 Inserted saline lock: 20 gauge in right antecubital area, using aseptic technique. as6 Blood collected. 06:49 Bed in low position. Call light in reach. Side rails up X2. as6 07:51 No provider procedures requiring assistance completed. IV discontinued, intact, ph bleeding controlled, No redness/swelling at site. Pressure dressing applied. Administered Medications: 06:45 Drug: Ativan IVP 2 mg IVP once Route: IVP; Site: right antecubital; vc1 09:40 Follow up: Response: No adverse reaction ph Medication: 06:49 VIS not applicable for this client. as6 Outcome: 07:26 Discharge ordered by . sp4 07:51 Discharged to home ph 07:51 Condition: stable 09:39 Discharge instructions given to patient, Instructed on discharge instructions, follow ph up and referral plans. Demonstrated understanding of instructions, follow-up care, 09:40 Patient left the ED. ph Signatures: Akua Suresh RN RN ph Andrew Garcia RN RN jb4 Brooke Burnett6 Ezra Shah RN RN as6 Mery Mckee RN RN vc1 Ruben Wilson MD MD sp4
[2023-11-07 10:53] VITALS: BP 118/78; TEMP 98; O2SAT 98
== END ==
LOC: ER 06:22
DX: F15.129 Other stimulant abuse with intoxication, unspecified (principal); F31.9 Bipolar disorder, unspecified; F17.210 Nicotine dependence, cigarettes, uncomplicated
CPT/HCPCS: 36415; 84702; 96374; 99284

== ENCOUNTER → 2023-11-07 | Emergency (ER) | payer OTHER ==
[2023-11-07 21:41] LABS: Urine Bacteria <20 /HPF (<20); Urine Bilirubin NEGATIVE (Negative); Urine Blood 2+ (Negative); Urine Clarity Extremely Turbid (Clear); Urine Color Yellow (Yellow); Urine Crystals Unidentified Few /HPF (None Seen); Urine Glucose NEGATIVE (Negative); Urine Mucus 2+ /HPF (None Seen); Urine Protein 2+ (Negative); Urine Urobilinogen Normal (Normal)
[2023-11-07 22:03] LABS: Barbiturates NEGATIVE (NEGATIVE); Benzodiazepines NEGATIVE (NEGATIVE); Cocaine POSITIVE (NEGATIVE); METHAMPHETAM POSITIVE (NEGATIVE); Methadone NEGATIVE (NEGATIVE); Opiates NEGATIVE (NEGATIVE); Phencyclidine NEGATIVE (NEGATIVE); THC Cannibis POSITIVE (NEGATIVE)
--- NOTE | 2023-11-07 23:42 | ER ---
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 Patient stated is currently 36-38 weeks and thinks her water broke yesterday. Coronavirus screen: Vaccine status: Client denies travel out of the [place] in the last 14 days. At this time, the client does not indicate any symptoms associated with coronavirus-19. Ebola Screen: Patient negative for fever greater than or equal to 101.5 degrees Fahrenheit, and additional compatible Ebola Virus Disease symptoms. Initial Sepsis Screen: Does the patient meet any 2 criteria? HR > 90 bpm. Does the patient have a suspected source of infection? No. Patient's initial sepsis screen is negative. Risk Assessment: Do you want to hurt yourself or someone else? Patient reports no desire to harm self or others. 21:08 Method Of Arrival: Wheelchair pf1 21:08 Acuity: DERICK 3 pf1 Historical: - Allergies: 21:10 No Known Allergies; pf1 - PMHx: 21:10 Bipolar disorder; Kidney Infections; Kidney stone; pf1 21:10 ADHD; neck fracture; depression; PTSD; borderline personality disorder; pf1 - PSHx: 21:10 kidney stents; pf1 - Immunization history:: Adult Immunizations up to date, Last tetanus immunization: < 5 years ago Flu vaccine is not up to date. - Social history:: Smoking status: Patient reports the use of cigarette tobacco products, smokes one pack cigarettes per day. Patient/guardian denies using alcohol, street drugs. Screenin:13 [facility] ED Fall Risk Assessment (Adult) History of falling in the last 3 months, tm6 including since admission No falls in past 3 months (0 pts). Abuse screen: Denies threats or abuse. Denies injuries from another. Nutritional screening: No deficits noted. Tuberculosis screening: No symptoms or risk factors identified. Assessment: 21:13 General: Appears uncomfortable, Behavior is calm, cooperative. Pain: Complains of pain tm6 in suprapubic area, posterior aspect of right lateral abdomen, posterior aspect of left lateral abdomen, right lower quadrant and left lower quadrant Pain currently is 8 out of 10 on a pain scale. Quality of pain is described as aching. Neuro: Level of Consciousness is awake, alert, obeys commands, Oriented to person, place, time, situation. Cardiovascular: Capillary refill < 3 seconds Patient's skin is warm and dry. Respiratory: Airway is patent Respiratory effort is even, unlabored, Respiratory pattern is regular, symmetrical. GI: Abdomen is flat, non-distended, Reports lower abdominal pain. : Reports flank pain. EENT: No signs and/or symptoms were reported regarding the EENT system. Derm: No signs and/or symptoms reported regarding the dermatologic system. Musculoskeletal: No signs and/or symptoms reported regarding the musculoskeletal system. 22:11 Reassessment: Patient appears in no apparent distress at this time. Patient and/or tm6 family updated on plan of care and expected duration. Pain level reassessed. Patient is alert, oriented x 3, equal unlabored respirations, skin warm/dry/pink. 23:07 Reassessment: Patient appears in no apparent distress at this time. Patient and/or tm6 family updated on plan of care and expected duration. Pain level reassessed. Patient is alert, oriented x 3, equal unlabored respirations, skin warm/dry/pink. 11/08 00:02 Reassessment: Patient appears in no apparent distress at this time. Patient and/or tm6 family updated on plan of care and expected duration. Pain level reassessed. Patient is alert, oriented x 3, equal unlabored respirations, skin warm/dry/pink. Vital Signs: 11/07 21:08 BP 106 / 62; Pulse 102; Resp 16; Temp 98.6; Pulse Ox 100% ; Weight 54.43 kg; Height 5 pf1 ft. 3 in. ; Pain 10/10; 21:13 BP 106 / 62; Pulse 109; Resp 17; Pulse Ox 98% on R/A; Pain 8/10; tm6 22:10 BP 100 / 61; Pulse 103; Pulse Ox 99% on R/A; Pain 10/10; tm6 23:06 Pulse 105; Pulse Ox 100% ; tm6 11/08 00:01 BP 98 / 62; Pulse 104; Resp 18; Pulse Ox 100% on R/A; tm6 11/07 21:08 Body Mass Index 21.26 (54.43 kg, 160.02 cm) pf1 11/07 21:08 Pain Scale: Adult pf1 21:13 Pain Scale: Adult tm6 22:10 Pain Scale: Adult tm6 ED Course: 11/07 20:37 Patient arrived in ED. ae5 20:37 Kathryn Marmolejo PA-C is PHCP. sb4 20:37 Sonu Domingo MD is Attending Physician. sb4 21:10 Triage completed. pf1 21:12 Jess Olmos, RN is Primary Nurse. tm6 21:13 Patient has correct armband on for positive identification. Bed in low position. Call tm6 light in reach. Side rails up X2. Provided Education on: plan of care. Client placed on continuous cardiac and pulse oximetry monitoring. NIBP monitoring applied. Door closed. Noise minimized. Warm blanket given. 21:13 Arm band placed on right wrist. tm6 21:13 No provider procedures requiring assistance completed. tm6 21:49 Radiology exam delayed due to test not completed at this time. eh4 22:43 CT Stone Protocol In Process Unspecified. EDMS 11/08 00:02 Patient did not have IV access during this emergency room visit. tm6 Administered Medications: No medications were administered Medication: 11/07 21:13 VIS not applicable for this client. tm6 Outcome: 23:42 Discharge ordered by MD. sb4 11/08 00:02 Discharged to home ambulatory, tm6 Condition: stable Discharge instructions given to patient, Instructed on discharge instructions, follow up and referral plans. Demonstrated understanding of instructions, follow-up care, 00:03 Patient left the ED. tm6 Signatures: Dispatcher [employer] EDUT Karolina Sureshpenny eh4 Kathryn Marmolejo PA-C PA-C sb4 Enriqueta Kuo RN RN pf1 Jess Olmos, JULITA RN tm6 Magda Graf ae5 Corrections: (The following items were deleted from the chart) 11/07 21:12 21:10 PMHx: adhd (Kidney Infections); pf1 pf1
--- NOTE | 2023-11-07 23:43 | EDPHYS ---
Physician Documentation [facility] Name: Cassidy France Age: 28 yrs Sex: Female : 1995 Arrival Date: 11/07/2023 Time: 20:28 Bed 16 Private MD: ED Physician Sonu Domingo HPI: 11/07 21:48 This 28 yrs old Female presents to ER via Wheelchair with complaints of Poss . sb4 21:48 Patient presents complaining of lower abdominal pain and back pain. She believes that sb4 she is in active labor. Of note, she was seen this morning with similar symptoms and had a negative serum test. Her abdomen is completely flat. She does have a history of methamphetamine abuse and has delusions present during my examination. Historical: - Allergies: 21:10 No Known Allergies; pf1 - PMHx: 21:10 Bipolar disorder; Kidney Infections; Kidney stone; pf1 21:10 ADHD; neck fracture; depression; PTSD; borderline personality disorder; pf1 - PSHx: 21:10 kidney stents; pf1 - Immunization history:: Adult Immunizations up to date, Last tetanus immunization: < 5 years ago Flu vaccine is not up to date. - Social history:: Smoking status: Patient reports the use of cigarette tobacco products, smokes one pack cigarettes per day. Patient/guardian denies using alcohol, street drugs. ROS: 21:48 Constitutional: Negative for fever, chills, and weight loss, sb4 21:48 Abdomen/GI: Positive for abdominal pain, 21:48 Back: Positive for pain at rest, 21:48 All other systems are negative, Exam: 21:48 Constitutional: This is a well developed, well nourished patient who is awake, alert, sb4 and in no acute distress. Head/Face: Normocephalic, atraumatic. Eyes: Extra-ocular motions intact. Periorbital areas with no swelling, redness, or edema. ENT: Mucous membranes moist. Cardiovascular: Regular rate and rhythm with a normal S1 and S2. Respiratory: Lungs have equal breath sounds bilaterally, clear to auscultation and percussion. No rales, rhonchi or wheezes noted. No increased work of breathing, no retractions or nasal flaring. Abdomen/GI: Soft, non-tender, no distension. Skin: Warm, dry with normal turgor. Normal color with no rashes, no lesions, and no evidence of cellulitis. MS/ Extremity: Pulses equal, no cyanosis. Neurovascular intact. Full, normal range of motion. 21:48 Psych: Behavior/mood is delirious, Affect is animated, Oriented to person, place, time, Patient has no thoughts/intents to harm self or others. Delusions/hallucinations are present and described as States that she has bubbles in her back, that she is 38 weeks /in active labor, and that if she had vaginal bleeding, the Aldan would fix it. Vital Signs: 21:08 BP 106 / 62; Pulse 102; Resp 16; Temp 98.6; Pulse Ox 100% ; Weight 54.43 kg; Height 5 pf1 ft. 3 in. ; Pain 10/10; 21:13 BP 106 / 62; Pulse 109; Resp 17; Pulse Ox 98% on R/A; Pain 8/10; tm6 22:10 BP 100 / 61; Pulse 103; Pulse Ox 99% on R/A; Pain 10/10; tm6 23:06 Pulse 105; Pulse Ox 100% ; tm6 11/08 00:01 BP 98 / 62; Pulse 104; Resp 18; Pulse Ox 100% on R/A; tm6 11/07 21:08 Body Mass Index 21.26 (54.43 kg, 160.02 cm) pf1 11/07 21:08 Pain Scale: Adult pf1 21:13 Pain Scale: Adult tm6 22:10 Pain Scale: Adult tm6 MDM: 11/07 20:57 Patient medically screened. sb4 21:48 Differential diagnosis: UTI, Nephrolithiasis, drug abuse, dehydration, back pain, acute sb4 psychosis. 23:40 Data reviewed: vital signs, nurses notes, lab test result(s), radiologic studies, and sb4 as a result, I will discharge patient. Counseling: I had a detailed discussion with the patient and/or guardian regarding the historical points, exam findings, and any diagnostic results supporting the discharge/admit diagnosis, lab results, radiology results. 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
[2023-11-08 03:22] VITALS: TEMP 98.6; O2SAT 100
[2023-11-08 03:27] VITALS: BP 98/62
--- NOTE | 2023-11-08 12:59 | RAD REPORT ---
EXAM DESCRIPTION: CT - Stone Protocol - 11/08/2023 6:37 am CLINICAL HISTORY: Back pain, stone. COMPARISON: CT abdomen/pelvis from March 06, 2020. TECHNIQUE: Serial axial CT images were obtained from above the diaphragm through the pubic symphysis without administration of intravenous or oral contrast. All CT scans are performed using dose optimization techniques as appropriate, including automated exp osure control and/or standardized protocols, where dose is adjusted for indication for exam and body habitus. FINDINGS: Thoracic: No significant abnormality. Hepatobiliary: No obvious concerning hepatic lesion identified in the absence of intravenous contrast . The gallbladder is unremarkable. No biliary ductal dilatation. Pancreas: Unremarkable. Spleen: Unremarkable. Gastrointestinal: No evidence of bowel obstruction or perienteric inflammation. The appendix is kavon l. Small amount of fecal material in the colon. Adrenals: No abnormality identified in either adrenal gland. Renal: No obvious parenchymal abnormality in either kidney in the absence of intravenous contrast. No hydronephrosis or urolithiasis. Few small calcified pelvic phleboliths. Bladder/Reproductive: Unremarkable appearance of the urinary bladder by CT technique. Unremarkable CT appearance of the uterus and ovaries. Vascular/Lymphatics: No lymphadenopathy identified by CT size criteria. Abdominal aorta is normal in caliber. Musculoskeletal: No concerning osseous lesion identified. Fluid / peritoneum: No significant free fluid. No free intraperitoneal air identified. IMPRESSION: 1. No acute abnormality identified in the abdomen or pelvis by CT. 2. No hydronephrosis or urolithiasis. Electronically signed by: Miriam Morillo MD 11/07/2023 11:26 PM [employer] Due to temporary technical issues with the PACS/Fluency reporting system, reports are being signed by the in house radiologists without review as a courtesy to insure prompt reporting. The interpreting radiologist is fully responsible for the content of the report.
== END ==
LOC: ER 20:28
DX: M54.50 Low back pain, unspecified (principal); F15.159 Other stimulant abuse with stimulant-induced psychotic disorder, unspecified; F14.10 Cocaine abuse, uncomplicated; F12.10 Cannabis abuse, uncomplicated; R10.30 Lower abdominal pain, unspecified; F31.9 Bipolar disorder, unspecified; F17.210 Nicotine dependence, cigarettes, uncomplicated
CPT/HCPCS: 74176; 76377; 80307; 81001; 99283

== ENCOUNTER → 2023-12-16 | Emergency (ER) | payer OTHER ==
[2023-12-16 22:19] LABS: Specific Gravity 1.016 (1.005-1.030)
[2023-12-16 22:22] LABS: Urine Bacteria None Seen /HPF (<20); Urine Mucus Slight /HPF (None Seen); Urine RBC <5 /HPF (None Seen)
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
[2023-12-17 06:32] VITALS: BP 119/83; TEMP 98.2; O2SAT 100
--- NOTE | 2023-12-17 11:54 | RAD REPORT ---
EXAM DESCRIPTION: RAD - C Spine Ap/Lat - 12/16/2023 10:50 pm CLINICAL HISTORY: PAIN COMPARISON: None. TECHNIQUE: XR CERVICAL SPINE 2-3 VIEWS 12/16/2023 9:15 PM POUCH MAKER FINDINGS: There is no acute fracture. Vertebral body heights are preserved. Alignment is anatomic. Disc spaces are maintained. Soft tissues are unremarkable. IMPRESSION: No acute fracture or subluxation. Electronically signed by: Anson Pina MD 12/16/2023 11:41 PM POUCH MAKER Due to temporary technical issues with the PACS/Fluency reporting system, reports are being signed by the in house radiologists without review as a courtesy to insure prompt reporting. The interpreting radiologist is fully responsible for the content of the report.
--- NOTE | 2023-12-17 12:02 | RAD REPORT ---
EXAM DESCRIPTION: RAD - Lumbar Spine 3 Views - 12/16/2023 10:51 pm CLINICAL HISTORY: PAIN COMPARISON: None. TECHNIQUE: XR LUMBAR SPINE 2-3 VIEWS 12/16/2023 9:15 PM IMPROVEMENT NURSE FINDINGS: There is no acute fracture. Vertebral body heights are preserved. There is minimal grade 1 retrolisthesis of L5 on S1. There is mild lower lumbar facet arthritis. Disc spaces are maintained. Soft tissues are unremarkable. IMPRESSION: No acute fracture or subluxation. Electronically signed by: Anson Pina MD 12/16/2023 11:40 PM IMPROVEMENT NURSE Due to temporary technical issues with the PACS/Fluency reporting system, reports are being signed by the in house radiologists without review as a courtesy to insure prompt reporting. The interpreting radiologist is fully responsible for the content of the report.
--- NOTE | 2023-12-17 12:06 | RAD REPORT ---
EXAM DESCRIPTION: RAD - Thoracic Spine Ap/Lat - 12/16/2023 10:50 pm CLINICAL HISTORY: PAIN COMPARISON: None. TECHNIQUE: XR THORACIC SPINE 2 VIEWS 12/16/2023 9:15 PM TECHNICAL AGRONOMIST FINDINGS: There is no acute fracture. Vertebral body heights are preserved. Alignment is anatomic. Disc spaces are maintained. Soft tissues are unremarkable. IMPRESSION: No acute fracture or subluxation. Electronically signed by: Anson Pina MD 12/16/2023 11:41 PM TECHNICAL AGRONOMIST Due to temporary technical issues with the PACS/Fluency reporting system, reports are being signed by the in house radiologists without review as a courtesy to insure prompt reporting. The interpreting radiologist is fully responsible for the content of the report.
== END ==
LOC: ER 20:35
DX: M54.2 Cervicalgia (principal); M54.9 Dorsalgia, unspecified; M54.50 Low back pain, unspecified; F17.200 Nicotine dependence, unspecified, uncomplicated
CPT/HCPCS: 72040; 72070; 72100; 81015; 81025

== ENCOUNTER → 2023-12-17 | Emergency (ER) | payer OTHER ==
[2023-12-17 07:06] LABS: Absolute Lymphocytes (CBC) 2.2 K/uL (0.7-4.9); Hematocrit 47.8 % (36.0-45.0); Lymphocytes % 24.8 % (15.3-44.8); MCV 90.3 fL (80-100); MPV 6.9 fL (7.6-11.3); Platelets 333 thou/uL (152-406); RBC Red Blood Cell Count 5.29 M/uL (3.86-4.86)
[2023-12-17 07:12] LABS: Specific Gravity 1.027 (1.005-1.030); Urine Bacteria <20 /HPF (<20); Urine Bilirubin NEGATIVE (Negative); Urine Blood Negative (Negative); Urine Clarity Turbid (Clear); Urine Color Yellow (Yellow); Urine Glucose NEGATIVE (Negative); Urine Mucus Slight /HPF (None Seen); Urine Protein TRACE (Negative); Urine RBC <5 /HPF (None Seen); Urine Urobilinogen Normal (Normal)
[2023-12-17 07:13] LABS: Specific Gravity 1.027 (1.005-1.030)
[2023-12-17 07:18] LABS: Barbiturates NEGATIVE (NEGATIVE); Benzodiazepines NEGATIVE (NEGATIVE); Cocaine POSITIVE (NEGATIVE); METHAMPHETAM POSITIVE (NEGATIVE); Methadone NEGATIVE (NEGATIVE); Opiates NEGATIVE (NEGATIVE); Phencyclidine NEGATIVE (NEGATIVE); THC Cannibis POSITIVE (NEGATIVE)
[2023-12-17 07:26] LABS: ALT/SGPT 36 U/L (13-56); AST/SGOT 25 U/L (15-37); Albumin 4.6 g/dL (3.4-5.0); Alkaline Phosphatase 96 U/L (45-117); BUN Blood Urea Nitrogen 15 mg/dL (7-18); Bicarbonate 30 mEq/L (21-32); Bilirubin Direct 0.1 mg/dL (0-0.2); Bilirubin Indirect, Calculated 0.5 mg/dL (0.2-0.8); Bilirubin Total 0.6 mg/dL (0.2-1.0); Glomerular Filtration Rate 101 ml/min (=/>90); Glucose Level 67 mg/dL (74-106); Potassium 3.2 mEq/L (3.5-5.1); Sodium Level 137 mEq/L (136-145)
[2023-12-17 07:39] LABS: Protime INR 1.08
--- NOTE | 2023-12-17 09:00 | ER ---
Nurse's Notes [facility] Name: Cassidy France Age: 28 yrs Sex: Female : 1995 Arrival Date: 12/17/2023 Time: 05:23 Bed 5 Private MD: Diagnosis: Suicidal ideations Presentation: 12/17 05:42 Chief complaint: Patient states: "I'm not feeling good. I am having thoughts of killing vc1 myself.". 05:42 Coronavirus screen: Vaccine status: Patient reports being unvaccinated. Client denies vc1 travel out of the [place] in the last 14 days. At this time, the client does not indicate any symptoms associated with coronavirus-19. Ebola Screen: Patient negative for fever greater than or equal to 101.5 degrees Fahrenheit, and additional compatible Ebola Virus Disease symptoms Patient denies exposure to infectious person. Patient denies travel to an Ebola-affected area in the 21 days before illness onset. No symptoms or risks identified at this time. Initial Sepsis Screen: Does the patient meet any 2 criteria? No. Patient's initial sepsis screen is negative. Does the patient have a suspected source of infection? No. Patient's initial sepsis screen is negative. Note Pt is homeless. Onset of symptoms was December 17, 2023. Care prior to arrival: None. Activity prior to arrival: None. Transition of care: patient was not received from another setting of care. 05:42 Method Of Arrival: Ambulatory vc1 05:42 Acuity: DERICK 2 vc1 05:42 Risk Assessment: Do you want to hurt yourself or someone else? Patient reports vc1 desire/thoughts of hurting themselves or someone else. Provider notified. Triage Assessment: 05:42 General: Appears in no apparent distress. uncomfortable, slender, unkempt, Behavior is vc1 cooperative, anxious. General:. Pain: Complains of pain in back of neck and upper back Pain does not radiate. EENT: No deficits noted. No signs and/or symptoms were reported regarding the EENT system. Neuro: Level of Consciousness is awake, alert, obeys commands, Oriented to person, place, time, situation, Appropriate for age. Cardiovascular: No deficits noted. Respiratory: No deficits noted. GI: No deficits noted. : No deficits noted. No signs and/or symptoms were reported regarding the genitourinary system. Derm: No deficits noted. Musculoskeletal: No deficits noted. No signs and/or symptoms reported regarding the musculoskeletal system. 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 Flu vaccine is not up to date. - Social history:: Smoking status: Patient reports the use of cigarette tobacco products, smokes one pack cigarettes per day. - Family history:: not pertinent. Screenin:36 [facility] ED Fall Risk Assessment (Adult) History of falling in the last 3 months, vc1 including since admission No falls in past 3 months (0 pts) Confusion or Disorientation No (0 pts) Intoxicated or Sedated No (0 pts) Impaired Gait No (0 pts) Mobility Assist Device Used No (0 pt) Altered Elimination No (0 pt) Score/Fall Risk Level 0 - 2 = Low Risk Oriented to surroundings, Maintained a safe environment, Educated pt \\T\\ family on fall prevention, incl call for assistance when getting out of bed. Abuse screen:. Abuse screen: Denies threats or abuse. Nutritional screening: No deficits noted. Tuberculosis screening: No symptoms or risk factors identified. Assessment: 06:56 Reassessment: see triage assessment. vc1 07:00 General: Appears in no apparent distress. comfortable, Behavior is cooperative, ld1 anxious. Pain: Denies pain. Neuro: Level of Consciousness is awake, alert, obeys commands, Oriented to person, place, time, situation. Cardiovascular: Capillary refill < 3 seconds Patient's skin is warm and dry. Rhythm is sinus rhythm. Respiratory: Airway is patent Respiratory effort is even, unlabored. GI: Abdomen is flat, non-distended. : No signs and/or symptoms were reported regarding the genitourinary system. 09:31 Reassessment: SI precautions in place. Sitter at bedside. Tray ordered. Paperwork ld1 completed and given to charge nurse. 09:46 Reassessment: Nurse to Nurse completed with Cierra galloway. ld1 Psych: 05:42 [place] Suicide Severity Screening: In the past month, have you wished you were vc1 or wished you could go to sleep and not wake up? Patient responds "yes." Based off the client's responses additional C-SSRS screening is required. "In the past month, have you actually had any thoughts of killing yourself?" Patient responds "yes." Based off the client's response additional [place] suicide severity screening questions to be further documented on paper forms. "In your lifetime, have you ever done anything, started to do anything, or prepared to do anything to end your life?" Patient responds "yes." Patient reports suicidal intent occurred greater than 3 months prior. overdosed on Ibuprofen and Tylenol. Subjective: Patient's mood is flat Delusions are denied, Hallucinations are auditory, Having thoughts of suicide. Denies suicidal plan. patient appears to be talking to self. Objective: Patient is cooperative, using poor eye contact, Speech is soft, Affect is flat, Patient has mutilated themselves by cut herself in the past. 05:42 Interventions: Removed personal items and placed in bag. Patient placed in hospital vc1 gown. Searched person for dangerous items. Urine collected and sent for urine drug test. Belonging list filled out. Safety Checks: Personal items have been removed. Patient uses marijuana. Commitment: Patient will be a voluntary commitment. Vital Signs: 05:42 BP 107 / 73; Pulse 94; Resp 18; Temp 96.8; Pulse Ox 100% ; Weight 54.43 kg; Height 5 vc1 ft. 3 in. ; Pain 0/10; 11:50 BP 116 / 77; Pulse 89; Resp 18; Temp 97.5(TE); Pulse Ox 100% on R/A; ld1 05:42 Body Mass Index 21.26 (54.43 kg, 160.02 cm) vc1 05:42 Pain Scale: Adult vc1 ED Course: 05:32 Patient arrived in ED. gm2 05:42 Arm band placed on right wrist. vc1 05:42 Patient has correct armband on for positive identification. placed in paper scrubs, vc1 placed in chair in front of nurses station due to no open rooms. 06:11 Ruben Wilson MD is Attending Physician. sp4 06:26 Triage completed. vc1 06:56 Inserted saline lock: 20 gauge in left antecubital area, using aseptic technique. Blood vc1 collected. 07:00 Door closed. Sitter at bedside due to SI precautions. ld1 07:00 No provider procedures requiring assistance completed. ld1 07:14 Acetaminophen Sent. wm 07:14 Basic Metabolic Panel Sent. wm 07:14 CBC with Diff Sent. wm 07:14 ETOH Level Sent. wm 07:14 Hepatic Function Sent. wm 07:14 PT-INR Sent. wm 07:14 Ptt, Activated Sent. wm 07:14 Salicylate Sent. wm 07:14 Urine Drug Screen Sent. wm 07:27 Attending Physician role handed off by Ruben Wilson MD rt 07:27 Everett Mitchell MD is Attending Physician. rt 08:16 faxed chart to [facility]. bd 09:29 Haydee Haynes, RN is Primary Nurse. ld1 11:19 pt accepted in transfer to [facility] by dr Retana admin approval given by bill Talley. 11:51 IV discontinued, intact, bleeding controlled, No redness/swelling at site. ld1 Administered Medications: No medications were administered Medication: 06:39 VIS not applicable for this client. vc1 Outcome: 09:00 ER care complete, transfer ordered by MD. rt 11:51 Transferred by ground EMS ld1 11:51 Condition: stable 11:51 Instructed on the need for transfer, 11:51 Patient left the ED. ld1 Signatures: Mayela Rudd Lacie, RN RN lg3 Haydee Haynes, JULITA RN ld1 Rebeka Severino Mery Mckee RN RN vc1 Everett Mitchell MD MD rt Ruben Wilson MD MD sp4 Veena Cochran gm2 Corrections: (The following items were deleted from the chart) 06:32 05:42 Risk Assessment: Do you want to hurt yourself or someone else? Patient reports no vc1 desire to harm self or others. vc1 07:01 07:00 BP 129 / 58; Pulse 56bpm; Resp 17bpm; Pulse Ox 100% RA; Temp 95.5F Oral; lg3 lg3 09:30 09:29 General: Appears in no apparent distress. comfortable, Behavior is cooperative, ld1 anxious, ld1 09:30 09:29 Pain: Denies pain. ld1 ld1 Neuro: Level of Consciousness is awake, alert, obeys commands, Oriented to ld1 person, place, time, situation, ld1 Respiratory: Airway is patent Respiratory effort is even, unlabored, ld1 Cardiovascular: Capillary refill < 3 seconds Patient's skin is warm and dry. ld1 Rhythm is sinus rhythm GI: Abdomen is flat, non-distended, ld1 : No signs and/or symptoms were reported regarding the genitourinary system. ld1ld1
--- NOTE | 2023-12-17 09:00 | EDPHYS ---
Physician Documentation [facility] Name: Cassidy France Age: 28 yrs Sex: Female : 1995 Arrival Date: 12/17/2023 Time: 05:23 Bed 5 Private MD: ED Physician Everett Mitchell HPI: 12/17 06:19 This 28 yrs old Female presents to ER via Unassigned with complaints of sp4 Suicidal Ideation. 06:19 Patient presents today stating she is having thoughts of suicide and that she has a sp4 plan to overdose. Patient has history of prior management of psychiatric facility for overdose on ibuprofen. . 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 Flu vaccine is not up to date. - Social history:: Smoking status: Patient reports the use of cigarette tobacco products, smokes one pack cigarettes per day. - Family history:: not pertinent. ROS: 06:19 Constitutional: Negative for fever, chills, and weight loss, Psych: Positive for sp4 depression , positive for suicidal ideation , positive for suicidal plan 06:19 All other systems are negative, Exam: 06:19 Constitutional: This is a well developed, well nourished patient who is awake, alert, sp4 and in no acute distress. Head/Face: Normocephalic, atraumatic. Eyes: Pupils equal round and reactive to light, extra-ocular motions intact. Lids and lashes normal. Conjunctiva and sclera are not injected. Cornea within normal limits. Periorbital areas with no swelling, redness, or edema. ENT: Nares patent. No nasal discharge, no septal abnormalities noted. Tympanic membranes are normal and external auditory canals are clear. Oropharynx with no redness, swelling, or masses, exudates, or evidence of obstruction, uvula midline. Mucous membranes moist. Neck: Trachea midline, no thyromegaly or masses palpated, and no cervical lymphadenopathy. Supple, full range of motion without nuchal rigidity, or vertebral point tenderness. Chest/axilla: Normal chest wall appearance and motion. Nontender with no deformity. No lesions are appreciated. Cardiovascular: Regular rate and rhythm with a normal S1 and S2. No gallops, murmurs, or rubs. Normal PMI, no JVD. No pulse deficits. Respiratory: Lungs have equal breath sounds bilaterally, clear to auscultation and percussion. No rales, rhonchi or wheezes noted. No increased work of breathing, no retractions or nasal flaring. Abdomen/GI: Soft, non-tender, with normal bowel sounds. No distension or tympany. No guarding or rebound. No evidence of tenderness throughout. Back: No spinal tenderness. No costovertebral tenderness. Skin: Warm, dry with normal turgor. Normal color with no rashes, no lesions, and no evidence of cellulitis. MS/ Extremity: Pulses equal, no cyanosis. Neurovascular intact. Full, normal range of motion. Neuro: Awake and alert, GCS 15, oriented to person, place, time, and situation. Cranial nerves II-XII grossly intact. Motor strength 5/5 in all extremities. Sensory grossly intact. Psych: Awake, alert, with orientation to person, place and time. Reports suicidal ideation with plan 09:39 ECG was reviewed by the Attending Physician. rt Vital Signs: 05:42 BP 107 / 73; Pulse 94; Resp 18; Temp 96.8; Pulse Ox 100% ; Weight 54.43 kg; Height 5 vc1 ft. 3 in. ; Pain 0/10; 11:50 BP 116 / 77; Pulse 89; Resp 18; Temp 97.5(TE); Pulse Ox 100% on R/A; ld1 05:42 Body Mass Index 21.26 (54.43 kg, 160.02 cm) vc1 05:42 Pain Scale: Adult vc1 MDM: 06:12 Patient medically screened. sp4 06:23 Differential diagnosis: drug withdrawal. acute psychotic break, depression, psychosis sp4 secondary to non-compliance. Data reviewed: vital signs, nurses notes, lab test result(s). 09:39 Consideration of Admission/Observation Escalation of care including rt admission/observation considered. Patient requires transfer for psychiatric care. 12/17 06:12 Order name: Acetaminophen; Complete Time: 07:52 sp4 12/17 06:12 Order name: Basic Metabolic Panel; Complete Time: 07:52 12/17 06:12 Order name: CBC with Diff; Complete Time: 07:52 12/17 06:12 Order name: ETOH Level; Complete Time: 07:52 12/17 06:12 Order name: Hepatic Function; Complete Time: 07:52 12/17 06:12 Order name: PT-INR; Complete Time: 07:52 12/17 06:12 Order name: Test, Urine; Complete Time: 07:52 12/17 06:12 Order name: Ptt, Activated; Complete Time: 07:52 12/17 06:12 Order name: Salicylate; Complete Time: 07:52 12/17 06:12 Order name: Urinalysis w/ reflexes; Complete Time: 07:52 12/17 06:12 Order name: Urine Drug Screen; Complete Time: 07:52 12/17 06:12 Order name: EKG; Complete Time: 06:12 12/17 06:12 Order name: EKG - Nurse/Tech; Complete Time: 08:13 12/17 06:12 Order name: IV Saline Lock; Complete Time: 06:55 12/17 06:12 Order name: Labs collected and sent; Complete Time: 06:57 12/17 06:12 Order name: Suicide Precautions; Complete Time: 06:57 12/17 06:12 Order name: Suicide Screening ([place]); Complete Time: 06:57 12/17 07:05 Order name: Labs - recollect needed: recollect blue top, be sure to label tube; bd Complete Time: 07:14 EC:39 Rate is 88 beats/min. Rhythm is regular, Normal Sinus Rhythm with No ectopy. QRS [place] rt is Normal. [place] interval is normal. QRS interval is normal. QT interval is normal. No Q waves. T waves are Normal. No ST changes noted. Interpreted by me. Administered Medications: No medications were administered Disposition Summary: 12/17/23 09:00 Transfer Ordered Notes: Transfer Location: Psych Facility rt Reason: Specialty rt Condition: Stable rt Problem: new rt Symptoms: are unchanged rt Accepting Physician: (12/17/23 11:51) ld1 Diagnosis - Suicidal ideations rt Forms: - Medication Reconciliation Form rt - SBAR form rt Signatures: Dispatcher [employer] Mayela Sahni Lauren, RN RN ld1 Mery Mckee RN RN vc1 Everett Mitchell MD MD rt Ruben Wilson MD MD sp4 Corrections: (The following items were deleted from the chart) 11:51 09:00 Dr. cerna ld1
[2023-12-17 16:37] VITALS: BP 116/77; TEMP 97.5; O2SAT 100
--- NOTE | 2023-12-19 13:33 | EKG ---
Test Date: 2023-12-17 Test Time: 08:17:06 Gray Tender: CRISTIN MEASUREMENT RESULTS: Intervals: Rate: 88 [place]: 138 QRSD: 88 QT: 366 QTc: 442 [place]: P: 68 [place]: 138 QRS: 88 T: 64 INTERPRETIVE STATEMENTS: Normal sinus rhythm Normal ECG Compared to ECG 12/17/2023 08:15:56 Right-axis deviation no longer present Electronically Signed On 12-19-23 13:24:22 BALLAST CLEANING MACHINE OPERATOR by Isidro Montes De Oca
--- NOTE | 2023-12-19 13:33 | EKG ---
Test Date: 2023-12-17 Test Time: 08:15:56 Assistant Women'S Basketball Coach: CRISTIN MEASUREMENT RESULTS: Intervals: Rate: 89 MA: 138 QRSD: 88 QT: 362 QTc: 440 [place]: P: 70 MA: 138 QRS: 90 T: 56 INTERPRETIVE STATEMENTS: Normal sinus rhythm Rightward axis Borderline ECG Compared to ECG 05/21/2021 15:25:33 Right-axis deviation now present Electronically Signed On 12-19-23 13:24:24 ANIMAL TRAINER by Isidro Montes De Oca
== END ==
LOC: ER 05:23
DX: R45.851 Suicidal ideations (principal); F31.9 Bipolar disorder, unspecified; F17.210 Nicotine dependence, cigarettes, uncomplicated; Z28.310 Unvaccinated for COVID-19
CPT/HCPCS: 36415; 80048; 80076; 80143; 80179; 80307; 81001; 81025; 82077; 85025; 85610; 85730; 93005

== ENCOUNTER → 2024-01-02 | Emergency (ER) | payer OTHER, SELFPAY ==
[~2024-01-02] MED LIST changes: +ACETAMINOPHEN 500 MG TAB ONE; +DIAZEPAM 5 MG TABLET ONE; +IBUPROFEN 400 MG TAB ONE; -LORazepam 2 MG/ML VIAL ONE
[2024-01-02 05:25] LABS: Absolute Lymphocytes (CBC) 0.9 K/uL (0.7-4.9); Lymphocytes % 14.4 % (15.3-44.8); MCV 89.2 fL (80-100); MPV 6.8 fL (7.6-11.3); Platelets 331 thou/uL (152-406); RBC Red Blood Cell Count 4.03 M/uL (3.86-4.86)
[2024-01-02 05:33] LABS: Specific Gravity 1.009 (1.005-1.030); Urine Bacteria None Seen /HPF (<20); Urine Bilirubin NEGATIVE (Negative); Urine Blood Negative (Negative); Urine Clarity Turbid (Clear); Urine Color Light-Yellow (Yellow); Urine Glucose NEGATIVE (Negative); Urine Protein NEGATIVE (Negative); Urine RBC None Seen /HPF (None Seen); Urine Urobilinogen Normal (Normal)
[2024-01-02 05:39] LABS: Barbiturates NEGATIVE (NEGATIVE); Benzodiazepines NEGATIVE (NEGATIVE); Cocaine NEGATIVE (NEGATIVE); METHAMPHETAM POSITIVE (NEGATIVE); Methadone NEGATIVE (NEGATIVE); Opiates NEGATIVE (NEGATIVE); Phencyclidine NEGATIVE (NEGATIVE); THC Cannibis NEGATIVE (NEGATIVE)
[2024-01-02 05:42] LABS: ALT/SGPT 30 U/L (13-56); AST/SGOT 21 U/L (15-37); Albumin 3.9 g/dL (3.4-5.0); Alkaline Phosphatase 81 U/L (45-117); BUN Blood Urea Nitrogen 8 mg/dL (7-18); Bicarbonate 29 mEq/L (21-32); Bilirubin Total 0.5 mg/dL (0.2-1.0); Glomerular Filtration Rate 126 ml/min (=/>90); Glucose Level 100 mg/dL (74-106); Lipase 37 U/L (13-75); Potassium 3.3 mEq/L (3.5-5.1); Protein, Total 7.7 g/dL (6.4-8.2); Sodium Level 137 mEq/L (136-145)
[2024-01-02 05:43] LABS: HCG, Quantitative < 1 mIU/mL (1-3)
--- NOTE | 2024-01-02 06:21 | ER ---
Nurse's Notes [facility] Name: Cassidy France Age: 28 yrs Sex: Female : 1995 Arrival Date: 01/02/2024 Time: 04:44 Bed 20 Private MD: Diagnosis: Adverse effect of other psychotropic drugs;Methamphetamine abuse, methamphetamine intoxication, delusional disorder Presentation: 01/02 05:00 Chief complaint: Patient states: "I was walking home when my lower stomach started jw7 cramping, the pain wraps around to my mid back and this started around 1400 yesterday afternoon". Coronavirus screen: At this time, the client does not indicate any symptoms associated with coronavirus-19. Ebola Screen: No symptoms or risks identified at this time. Initial Sepsis Screen: Does the patient meet any 2 criteria? No. Patient's initial sepsis screen is negative. Does the patient have a suspected source of infection? No. Patient's initial sepsis screen is negative. Risk Assessment: Do you want to hurt yourself or someone else? Patient reports no desire to harm self or others. Onset of symptoms was January 01, 2024 at 14:00. 05:00 Method Of Arrival: EMS: [facility] jw7 05:00 Acuity: DERICK 3 jw7 Triage Assessment: 05:00 General: Appears in no apparent distress. comfortable, Behavior is calm, cooperative. jw7 Pain: Complains of pain in abdomen Pain radiates to back Pain currently is 5 out of 10 on a pain scale. Quality of pain is described as crampy, sharp, stabbing, Pain began 1 day ago. Is intermittent, Alleviated by nothing. EENT: No deficits noted. No signs and/or symptoms were reported regarding the EENT system. Neuro: Level of Consciousness is awake, alert, obeys commands, Oriented to person, place, time, situation. Cardiovascular: Heart tones S1 S2 present Capillary refill < 3 seconds Clubbing of nail beds is absent JVD is absent Patient's skin is warm and dry. Respiratory: Airway is patent Trachea midline Respiratory effort is even, unlabored, Respiratory pattern is regular, symmetrical. GI: Abdomen is flat, non-distended, Bowel sounds present X 4 quads. Reports lower abdominal pain, cramping. : No deficits noted. No signs and/or symptoms were reported regarding the genitourinary system. Derm: Skin is intact, is healthy with good turgor, Skin is dry, Skin is normal, Skin temperature is warm. Musculoskeletal: Circulation, motion, and sensation intact. Range of motion: intact in all extremities. 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 Last tetanus immunization: < 5 years ago Flu vaccine is not up to date. - Social history:: Smoking status: Patient reports the use of cigarette tobacco products, smokes one pack cigarettes per day. Reported history of juuling and/or vaping. Patient uses street drugs, marijuana. - Family history:: not pertinent. Screenin:00 [facility] ED Fall Risk Assessment (Adult) History of falling in the last 3 months, jw7 including since admission No falls in past 3 months (0 pts) Score/Fall Risk Level 0 - 2 = Low Risk Oriented to surroundings, Maintained a safe environment, Educated pt \\T\\ family on fall prevention, incl call for assistance when getting out of bed. Abuse screen: Denies threats or abuse. Denies injuries from another. Nutritional screening: No deficits noted. Tuberculosis screening: No symptoms or risk factors identified. Assessment: 05:12 General: See Triage Assessment. jw7 06:13 Reassessment: Patient appears in no apparent distress at this time. Patient and/or jw7 family updated on plan of care and expected duration. Pain level reassessed. Patient is alert, oriented x 3, equal unlabored respirations, skin warm/dry/pink. Patient states feeling better. Patient states symptoms have improved. Vital Signs: 05:00 BP 113 / 73; Pulse 102; Resp 16; Temp 98.3; Pulse Ox 100% ; Weight 58.97 kg; Height 5 jw7 ft. 3 in. ; Pain 5/10; 06:00 BP 116 / 92; Pulse 100; Resp 16 S; Pulse Ox 100% on R/A; jw7 05:00 Body Mass Index 23.03 (58.97 kg, 160.02 cm) jw7 05:00 Pain Scale: Adult jw7 ED Course: 04:48 Patient arrived in ED. rv1 04:51 Ruben Wilson MD is Attending Physician. sp4 04:59 Radha Gale RN is Primary Nurse. jw7 05:00 Arm band placed on. jw7 05:00 Patient has correct armband on for positive identification. Bed in low position. Call [facility] light in reach. 05:00 Initial lab(s) drawn, by ED staff, sent to lab. Inserted saline lock: 20 gauge in right 7 antecubital area, using aseptic technique. Blood collected. 05:05 Triage completed. jw7 05:13 CBC with Diff Sent. cg3 05:13 CMP Sent. cg3 05:13 Lipase Sent. cg3 06:36 Provided Education on: discharge instructions and the importance of discontinuing the jw7 use of drugs, methamphetamine's. . 06:36 No provider procedures requiring assistance completed. IV discontinued, intact, jw7 bleeding controlled, No redness/swelling at site. Pressure dressing applied. Administered Medications: 05:37 Drug: Diazepam PO 5 mg PO once Route: PO; jw7 06:37 Follow up: Response: No adverse reaction; Marked relief of symptoms jw7 05:37 Drug: Ibuprofen PO 800 mg PO once Route: PO; jw7 06:37 Follow up: Response: No adverse reaction; Marked relief of symptoms jw7 05:37 Drug: Acetaminophen PO 1000 mg PO once Route: PO; jw7 06:37 Follow up: Response: No adverse reaction; Marked relief of symptoms jw7 Medication: 06:37 VIS not applicable for this client. jw7 Outcome: 06:20 Discharge ordered by . sp4 06:36 Discharged to home ambulatory, jw7 06:36 Condition: stable 06:36 Discharge instructions given to patient, Instructed on discharge instructions, follow up and referral plans. Demonstrated understanding of instructions, follow-up care, 06:37 Patient left the ED. jw7 Signatures: Radha Gale RN RN jw7 Gage Simmsca rv1 Ruben Wilson MD MD sp4 Nannette Henderson 3
--- NOTE | 2024-01-02 06:21 | EDPHYS ---
Physician Documentation [facility] Name: Cassidy France Age: 28 yrs Sex: Female : 1995 Arrival Date: 01/02/2024 Time: 04:44 Bed 20 Private MD: ED Physician Ruben Wilson HPI: 01/02 04:57 This 28 yrs old Female presents to ER via Unassigned with complaints of Lower sp4 abdominal pain . 06:13 Patient is a 28-year-old female who states she may be . Patient presents with sp4 EMS with anxiety and mild agitation complaining of lower abdominal pain stating positive . Patient states her last menstrual period was October 10, 2023. Patient reports she is G7, P0333 patient has history of known methamphetamine abuse cocaine abuse cannabis abuse.. 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 Last tetanus immunization: < 5 years ago Flu vaccine is not up to date. - Social history:: Smoking status: Patient reports the use of cigarette tobacco products, smokes one pack cigarettes per day. Reported history of juuling and/or vaping. Patient uses street drugs, marijuana. - Family history:: not pertinent. ROS: 06:13 Constitutional: Negative for fever, chills, and weight loss, lower abdominal pain sp4 positive reported 06:13 All other systems are negative, Exam: 06:13 Constitutional: This is a well developed, well nourished patient who is awake, alert, sp4 and in no acute distress. Positive mild agitation and anxiety Head/Face: Normocephalic, atraumatic. Eyes: Pupils equal round and reactive to light, extra-ocular motions intact. Lids and lashes normal. Conjunctiva and sclera are not injected. Cornea within normal limits. Periorbital areas with no swelling, redness, or edema. ENT: Nares patent. No nasal discharge, no septal abnormalities noted. Tympanic membranes are normal and external auditory canals are clear. Oropharynx with no redness, swelling, or masses, exudates, or evidence of obstruction, uvula midline. Mucous membranes moist. Neck: Trachea midline, no thyromegaly or masses palpated, and no cervical lymphadenopathy. Supple, full range of motion without nuchal rigidity, or vertebral point tenderness. Chest/axilla: Normal chest wall appearance and motion. Nontender with no deformity. No lesions are appreciated. Cardiovascular: Regular rate and rhythm with a normal S1 and S2. No gallops, murmurs, or rubs. Normal PMI, no JVD. No pulse deficits. Respiratory: Lungs have equal breath sounds bilaterally, clear to auscultation and percussion. No rales, rhonchi or wheezes noted. No increased work of breathing, no retractions or nasal flaring. Abdomen/GI: Soft, with normal bowel sounds. No distension or tympany. No guarding or rebound. No evidence of tenderness throughout. Back: No spinal tenderness. No costovertebral tenderness. Skin: Warm, dry with normal turgor. Normal color with no rashes, no lesions, and no evidence of cellulitis. MS/ Extremity: Pulses equal, no cyanosis. Neurovascular intact. Full, normal range of motion. Neuro: Awake and alert, GCS 15, oriented to person, place, time, and situation. Cranial nerves II-XII grossly intact. Motor strength 5/5 in all extremities. Sensory grossly intact. Psych: Awake, alert, with orientation to person, place and time. Positive for anxiety and mild agitation Vital Signs: 05:00 BP 113 / 73; Pulse 102; Resp 16; Temp 98.3; Pulse Ox 100% ; Weight 58.97 kg; Height 5 jw7 ft. 3 in. ; Pain 5/10; 06:00 BP 116 / 92; Pulse 100; Resp 16 S; Pulse Ox 100% on R/A; jw7 05:00 Body Mass Index 23.03 (58.97 kg, 160.02 cm) [facility] 05:00 Pain Scale: Adult [facility] MDM: 04:56 Patient medically screened. sp4 06:16 Differential Diagnosis altered mental status, sepsis, flu, Drug intoxication, sp4 methamphetamine abuse. Data reviewed: vital signs, nurses notes, EMS record, lab test result(s), CBC, electrolytes. Consideration of Admission/Observation Escalation of care including admission/observation considered. ED course: Patient is not . Quantitative hCG negative, urine test negative. Patient positive for methamphetamine. Patient has delusions of . She was given Valium to help her relax. Patient was strongly advised to discontinue methamphetamine abuse. Patient was advised to join Narcotics Anonymous. Patient was advised to practice sober living. 01/02 04:56 Order name: CBC with Diff; Complete Time: 06:15 sp4 01/02 04:56 Order name: CMP; Complete Time: 06:15 sp4 01/02 04:56 Order name: Lipase; Complete Time: 06:15 sp4 01/02 04:56 Order name: Test, Urine; Complete Time: 06:15 sp4 01/02 04:56 Order name: Urinalysis w/ reflexes; Complete Time: 06:15 sp4 01/02 04:57 Order name: HCG-Quantitative; Complete Time: 06:15 sp4 01/02 04:57 Order name: Urine Drug Screen; Complete Time: 06:15 sp4 01/02 04:56 Order name: IV Saline Lock; Complete Time: 05:12 sp4 01/02 04:56 Order name: Labs collected and sent; Complete Time: 05:12 sp4 Administered Medications: 05:37 Drug: Diazepam PO 5 mg PO once Route: PO; jw7 06:37 Follow up: Response: No adverse reaction; Marked relief of symptoms jw7 05:37 Drug: Ibuprofen PO 800 mg PO once Route: PO; jw7 06:37 Follow up: Response: No adverse reaction; Marked relief of symptoms jw7 05:37 Drug: Acetaminophen PO 1000 mg PO once Route: PO; jw7 06:37 Follow up: Response: No adverse reaction; Marked relief of symptoms jw7 Disposition Summary: 01/02/24 06:20 Discharge Ordered Problem: new sp4 Symptoms: have improved sp4 Condition: Stable sp4 Diagnosis - Adverse effect of other psychotropic drugs sp4 - Methamphetamine abuse, methamphetamine intoxication, delusional disorder sp4 Followup: sp4 - With: Private Physician - When: 7 - 10 days - Reason: Recheck today's complaints Discharge Instructions: - Discharge Summary Sheet sp4 - Methamphetamines Use Disorder sp4 Forms: - Patient Portal Instructions sp4 Signatures: Dispatcher [employer] Radha Owen RN RN jw7 Ruben Wilson MD MD sp4
[2024-01-02 06:54] VITALS: BP 116/92; TEMP 98.3; O2SAT 100
== END ==
LOC: ER 04:44
DX: F15.129 Other stimulant abuse with intoxication, unspecified (principal); F22 Delusional disorders; T43.8X5A Adverse effect of other psychotropic drugs, initial encounter
CPT/HCPCS: 36415; 80053; 80307; 81001; 81025; 83690; 84702; 85025; 99284

== ENCOUNTER 2024-12-23 17:44 | Emergency (ER) | payer OTHER ==
[2024-12-23 18:50] LABS: Specific Gravity 1.016 (1.005-1.030)
[2024-12-23 18:51] LABS: Specific Gravity 1.016 (1.005-1.030); Urine Bacteria <20 /HPF (<20); Urine Bilirubin NEGATIVE (Negative); Urine Blood 3+ (OVER) (Negative); Urine Clarity Extremely Turbid (Clear); Urine Color Light-Orange (Yellow); Urine Crystals Unidentified Few /HPF (None Seen); Urine Culture Reflex Order REFLEXED; Urine Glucose NEGATIVE (Negative); Urine Ketones NEGATIVE (Negative); Urine Microscopic Reflex YN ORDER UMIC; Urine Mucus Slight /HPF (None Seen); Urine Nitrite 2+ (Negative); Urine Protein TRACE (Negative); Urine RBC <5 /HPF (None Seen); Urine Urobilinogen Normal (Normal)
--- NOTE | 2024-12-23 18:52 | EDPHYS ---
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 18:59 Pt is a 29 year old female who presents for vaginal bleeding that started yesterday. kb States she thinks she is having a miscarriage. Reports 2 positive tests 3 weeks ago. States last period was in October prior to getting nexplanon control put in. . 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 - Infectious Disease History:: Denies. - Social history:: Smoking status: Patient reports the use of cigarette tobacco products, smokes one pack cigarettes per day. Patient uses street drugs, marijuana, Methamphetamine (Meth). ROS: 18:59 Constitutional: As per HPI kb Exam: 18:58 Constitutional: This is a well developed, well nourished patient who is awake, alert, kb and in no acute distress. Head/Face: Normocephalic, atraumatic. ENT: Moist Mucous membranes Cardiovascular: Regular rate Respiratory: Respirations even and unlabored. No increased work of breathing. Talking in full sentences Abdomen/GI: Soft, non-tender. No distention Skin: Warm, dry with normal turgor. Normal color. MS/ Extremity: Pulses equal, no cyanosis. Neurovascular intact. Full, normal range of motion. Neuro: Awake and alert, GCS 15, oriented to person, place, time, and situation. Vital Signs: 18:19 BP 119 / 80; Pulse 76; Resp 15; Temp 96.6(TE); Pulse Ox 100% on R/A; Weight 54.43 kg; cm10 Height 5 ft. 3 in. ; Pain 6/10; 18:19 Body Mass Index 21.26 (54.43 kg, 160.02 cm) cm10 18:19 Pain Scale: Adult cm10 MDM: 17:46 Medical Screening Exam initiated kb 18:58 Differential diagnosis: menses, threatened . Data reviewed: vital signs, nurses kb notes. Test considered but Not performed: Labs: hgc, abo/rh considered but test negative. Ultrasound US considered but test negative. Historians other than the Patient: EMS: [facility]. Counseling: I had a detailed discussion with the patient and/or guardian regarding the historical points, exam findings, and any diagnostic results supporting the discharge/admit diagnosis, lab results, the need for outpatient follow up, a family practitioner, to return to the emergency department if symptoms worsen or persist or if there are any questions or concerns that arise at home. 12/23 17:46 Order name: Test, Urine; Complete Time: 18:51 kb 12/23 17:46 Order name: Urinalysis w/ reflexes; Complete Time: 18:54 kb 12/23 18:55 Order name: Urine Culture EDMS Administered Medications: No medications were administered Disposition Summary: 12/23/24 18:51 Discharge Ordered Notes: Location: Home kb Condition: Stable kb Diagnosis - Abnormal uterine and vaginal bleeding, unspecified kb Followup: kb - With: Emergency Department - When: As needed - Reason: Worsening of condition Followup: kb - With: Private Physician - When: 2 - 3 days - Reason: Recheck today's complaints, Continuance of care, Re-evaluation by your physician Discharge Instructions: - Discharge Summary Sheet kb - Abnormal Uterine Bleeding, [id number] kb Forms: - Medication Reconciliation Form kb - Antibiotic Education kb - Prescription Opioid Use kb - Patient Portal Instructions kb - Leadership Thank You Letter kb Signatures: Dispatcher [employer] EDGuerline Mazariegos FNP-C FNP-Bessy Ivy, RN RN cm10
--- NOTE | 2024-12-23 18:52 | ER ---
Nurse's Notes [facility] Name: Cassidy France Age: 29 yrs Sex: Female : 1995 Arrival Date: 12/23/2024 Time: 17:44 Bed IW2 Private MD: Diagnosis: Abnormal uterine and vaginal bleeding, unspecified Presentation: 12/23 18:19 Chief complaint: Patient states: Vaginal bleeding X2 days. Pt states having positive cm10 test 3 weeks ago. Last period was in September 2021. Pt states that the blood is bright red and she is passing clots. . Coronavirus screen: Client denies travel out of the [place] in the last 14 days. Ebola Screen: Patient denies travel to an Ebola-affected area in the 21 days before illness onset. Initial Sepsis Screen: Does the patient meet any 2 criteria? No. Patient's initial sepsis screen is negative. Does the patient have a suspected source of infection? No. Patient's initial sepsis screen is negative. Risk Assessment: Do you want to hurt yourself or someone else? Patient reports no desire to harm self or others. Onset of symptoms was December 21, 2024. 18:19 Method Of Arrival: EMS: [facility] 10 18:19 Acuity: DERICK 3 cm10 Triage Assessment: 18:21 General: Appears in no apparent distress. comfortable, Behavior is cooperative. Neuro: cm10 No deficits noted. Level of Consciousness is awake, alert, obeys commands, Oriented to person, place, time, situation, Appropriate for age. Respiratory: No deficits noted. Airway is patent Respiratory effort is even, unlabored, Respiratory pattern is regular, symmetrical. : Reports vaginal bleeding that is bright red, with clots. 19:19 Pain: Denies pain. 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 - Infectious Disease History:: Denies. - Social history:: Smoking status: Patient reports the use of cigarette tobacco products, smokes one pack cigarettes per day. Patient uses street drugs, marijuana, Methamphetamine (Meth). Screenin:18 [facility] ED Fall Risk Assessment (Adult) History of falling in the last 3 months, cm10 including since admission No falls in past 3 months (0 pts) Confusion or Disorientation No (0 pts) Intoxicated or Sedated No (0 pts) Impaired Gait No (0 pts) Mobility Assist Device Used No (0 pt) Altered Elimination No (0 pt) Score/Fall Risk Level 0 - 2 = Low Risk Oriented to surroundings, Maintained a safe environment, Hourly rounding (assess needs \T\ fall precautionary measures) done. Abuse screen: Denies threats or abuse. Denies injuries from another. Nutritional screening: No deficits noted. Tuberculosis screening: No symptoms or risk factors identified. Vital Signs: 18:19 BP 119 / 80; Pulse 76; Resp 15; Temp 96.6(TE); Pulse Ox 100% on R/A; Weight 54.43 kg; cm10 Height 5 ft. 3 in. ; Pain 6/10; 18:19 Body Mass Index 21.26 (54.43 kg, 160.02 cm) cm10 18:19 Pain Scale: Adult cm10 ED Course: 17:46 Patient arrived in ED. kb 17:46 Guerline Graham F[facility]-C [facility]. kb 17:46 Yash Martini MD is Attending Physician. kb 18:15 Patient's name was called from ER abeba. No response. cm10 18:20 Triage completed. cm10 19:18 Patient has correct armband on for positive identification. Provided Education on: cm10 Follow-up instructions. 19:18 Patient placed in waiting room. cm10 19:18 No provider procedures requiring assistance completed. Patient did not have IV access cm10 during this emergency room visit. Administered Medications: No medications were administered Medication: 19:18 VIS not applicable for this client. cm10 Outcome: 18:51 Discharge ordered by . kb 19:18 Discharged to home via wheelchair, cm10 19:18 Condition: good 19:18 Discharge instructions given to patient, Instructed on discharge instructions, follow up and referral plans. Demonstrated understanding of instructions, follow-up care, 19:19 Patient left the ED. cm10 Signatures: Guerline Graham FNP-C FNP-Ckb Martinez, Clarissa, RN RN cm10
[2024-12-23 19:24] VITALS: BP 119/80; TEMP 96.6; O2SAT 100
== END 2024-12-23 19:19 | disposition home or self-care (01) ==
LOC: ER 17:44
DX: N93.9 Abnormal uterine and vaginal bleeding, unspecified (principal); F17.210 Nicotine dependence, cigarettes, uncomplicated
CPT/HCPCS: 81001; 81025; 87086; 87088

== ENCOUNTER 2025-08-28 15:13 | Emergency (ER) | payer OTHER ==
--- NOTE | 2025-08-28 16:12 | RAD REPORT ---
EXAMINATION: US Pelvis Complete, Abdomen Pelvis Scan US CLINICAL INDICATION: Female 30 years old.[facility] MA[facility] unknown vaginal bleeding times 6 weeks Bed Name: 19 TECHNIQUE: Real-time ultrasonography of the pelvis was performed transabdominally. Color and spectral Doppler evaluation of the ovaries was performed. COMPARISON: No prior exam. FINDINGS: UTERUS AND CERVIX: The uterus measures 7.4 cm in length. The uterus is normal. No masses seen The end ometrium is normal, 0.1 cm in thickness. RIGHT OVARY: Normal The right ovary measures 3.0 x 2.2 x 2.3 cm. Normal color and spectral Doppler evaluation of the right ovary.. LEFT OVARY: Normal The left ovary measures 2.7 x 1.8 x 2.0 cm. Normal color and spectral Doppler evaluation of the left ovary.. FREE FLUID: No free fluid. IMPRESSION: No suspicious pelvic abnormalities. No evidence of torsion.
[2025-08-28] MEDS ORDERED: NA CHLORIDE 0.9% 1,000 ML ONE (16:13)
[2025-08-28 16:21] LABS: Absolute Lymphocytes (CBC) 2.3 K/uL (0.7-4.9); Hematocrit 41.0 % (36.0-45.0); Hemoglobin 13.7 g/dL (12.0-15.0); MCH 30.3 pg (27.0-35.0); MCHC 33.4 g/dL (32.0-36.0); MCV 90.8 fL (80-100); MPV 7.0 fL (7.6-11.3); Nucleated RBC Absolute Count 0.0 (0-0); Nucleated Red Blood Cells % 0.0 % (0-0); RBC Red Blood Cell Count 4.52 M/uL (3.86-4.86); White Blood Count 8.00 thou/uL (4.3-10.9)
[2025-08-28 16:24] LABS: PT Prothrombin Time 11.4 SECONDS (10-13.0); PTT, Activated Partial Thromb 30.9 SECONDS (27.2-37.4); Protime INR 1.01
[2025-08-28] MEDS ORDERED: KETOROLAC 30 MG/ML INJ ONE (16:34)
[2025-08-28 16:36] LABS: ALT/SGPT 22.0 U/L (13-56); AST/SGOT 16.0 U/L (15-37); Albumin 3.7 g/dL (3.4-5.0); Albumin/Globulin Ratio 1.0 (1.1-1.8); Alkaline Phosphatase 85.0 U/L (45-117); Anion Gap 7.9 mEq/L (5.0-15.0); BUN Blood Urea Nitrogen 6.0 mg/dL (7-18); Globulin 3.7 g/dL (2.3-3.5); Glucose Level 96.0 mg/dL (74-106); HCG, Quantitative 1.0 mIU/mL (1-3); Lipase 40.0 U/L (13-75); Potassium 3.9 mEq/L (3.5-5.1)
--- NOTE | 2025-08-28 17:42 | RAD REPORT ---
EXAMINATION: CT Abdomen Pelvis W Contrast CLINICAL INDICATION: Female, 30 years old. ABD PAIN TECHNIQUE: CT abdomen and pelvis was performed, after the administration of IV contrast, as per depar tment protocol. Axial, sagittal and coronal reconstructions were obtained. One or more of the following dose reduction techniques were used: Automated exposure control, adjustment of the mA and k V according to patient size, and iterative reconstruction. Unless otherwise specified, incidental findings do not require dedicated imaging follow-up. COMPARISON: 03/06/2020. FINDINGS: LOWER CHEST: The visualized lung bases are clear. LIVER: Normal in size and contour. No focal lesion. BILIARY SYSTEM: No suspicious abnormalities. SPLEEN: Normal size. No focal lesion. Surgical clips along the left renal fossa. PANCREAS: No mass, ductal dilation, or mj-pancreatic fluid. ADRENALS: Normal; no mass. KIDNEYS: Normal size and contour. No hydronephrosis. URINARY BLADDER: Unremarkable. GASTROINTESTINAL TRACT: No evidence of free air, significant intra-abdominal free fluid, bowel obstru ction or abscess. Moderate stool burden throughout the colon. APPENDIX: Normal appendix. LYMPH NODES: No lymphadenopathy. MUSCULOSKELETAL: No acute or suspicious osseous abnormality. Healing or healed left posterior rib fra ctures. ADDITIONAL FINDINGS: Heterogeneous enhancement along the myometrium most pronounced anteriorly. IMPRESSION: No acute abnormalities seen in the abdomen or pelvis. Nonspecific heterogeneous enhancement along the myometrium anteriorly. If there is concern for suspic ious abnormalities of the myometrium or endometrium, additional dedicated evaluation by pelvic ultrasound should be considered.
[2025-08-28 18:07] LABS: Sqamous Epithelial <5 /HPF (None Seen); Urine Culture Reflex Order NOT NEEDED; Urine Microscopic Reflex YN ORDER UMIC
[2025-08-28] MEDS ORDERED: AZITHROMYCIN 250 MG TAB ONE (18:23)
[2025-08-28] MEDS ORDERED: CEFTRIAXONE 1000 MG/VIAL ONE ×2 (18:23→18:36)
--- NOTE | 2025-08-28 18:34 | ER ---
Nurse's Notes [facility] Name: Cassidy France Age: 30 yrs Sex: Female : 1995 Arrival Date: 08/28/2025 Time: 15:13 Bed 19 Private MD: Diagnosis: Encounter for screening for infections with a predominantly sexual mode of transmission;Lower abdominal pain, unspecified;Dorsalgia, unspecified;Abnormal uterine and vaginal bleeding, unspecified Presentation: 08/28 15:25 Chief complaint: EMS states: Pt reports heavy vaginal bleeding and abdominal pain for jb4 the past 6 weeks and neck and back pain that started yesterday. Coronavirus screen: At this time, the client does not indicate any symptoms associated with coronavirus-19. Ebola Screen: No symptoms or risks identified at this time. Initial Sepsis Screen: Does the patient meet any 2 criteria? No. Patient's initial sepsis screen is negative. Does the patient have a suspected source of infection? No. Patient's initial sepsis screen is negative. Risk Assessment: Do you want to hurt yourself or someone else? Patient reports no desire to harm self or others. Onset of symptoms was July 16, 2025. Transition of care: patient was not received from another setting of care. 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 - Infectious Disease History:: Denies. - Social history:: Smoking status: unknown. Screenin:30 [facility] ED Fall Risk Assessment (Adult) History of falling in the last 3 months, jb4 including since admission No falls in past 3 months (0 pts) Confusion or Disorientation No (0 pts) Intoxicated or Sedated No (0 pts) Impaired Gait No (0 pts) Mobility Assist Device Used No (0 pt) Altered Elimination No (0 pt) Score/Fall Risk Level 0 - 2 = Low Risk Oriented to surroundings, Maintained a safe environment. Abuse screen: Denies threats or abuse. Nutritional screening: No deficits noted. Tuberculosis screening: No symptoms or risk factors identified. Assessment: 15:30 General: Appears in no apparent distress. comfortable, Behavior is calm, cooperative, jb4 appropriate for age. Pain: Complains of pain in back and neck Pain does not radiate. Pain currently is 5 out of 10 on a pain scale. Neuro: Level of Consciousness is awake, alert, obeys commands, Oriented to person, place, time, situation. Cardiovascular: Patient's skin is warm and dry. Respiratory: Airway is patent Respiratory effort is even, unlabored, Respiratory pattern is regular, symmetrical. Derm: Skin is intact, Skin is pink, warm \T\ dry. Musculoskeletal: Circulation, motion, and sensation intact. Range of motion: intact in all extremities. 16:45 Reassessment: Patient appears in no apparent distress at this time. Patient and/or jb4 family updated on plan of care and expected duration. Pain level reassessed. Patient is alert, oriented x 3, equal unlabored respirations, skin warm/dry/pink. 17:56 Reassessment: Patient appears in no apparent distress at this time. Patient and/or jb4 family updated on plan of care and expected duration. Pain level reassessed. Patient is alert, oriented x 3, equal unlabored respirations, skin warm/dry/pink. Vital Signs: 15:25 BP 120 / 66; Pulse 68; Resp 16; Pulse Ox 98% ; jb4 16:45 BP 97 / 63; Pulse 57; Resp 16; Pulse Ox 100% on R/A; jb4 17:54 BP 106 / 69; Pulse 64; Resp 18; Pulse Ox 98% ; Pain 3/10; pm7 19:08 BP 108 / 71; Pulse 66; Resp 17; Temp 98.1; Pulse Ox 100% on R/A; Pain 0/10; zm 17:54 Pain Scale: Adult pm7 19:08 Pain Scale: Adult zm Kaye Coma Score: 19:08 Eye Response: spontaneous(4). Motor Response: obeys commands(6). Verbal Response: zm oriented(5). Total: 15. ED Course: 15:15 Patient arrived in ED. jb4 15:17 Yash Gerber PA-C is PHCP. cp 15:17 Clay Alva MD is Attending Physician. cp 15:28 Triage completed. jb4 15:28 Arm band placed on right wrist. jb4 15:30 Patient has correct armband on for positive identification. Bed in low position. Call jb4 light in reach. Side rails up X 1. Provided Education on: plan of care. 15:30 No provider procedures requiring assistance completed. jb4 15:54 US Pelvis Complete In Process Unspecified. EDMS 15:54 Abdomen Pelvis Scan\E\US In Process Unspecified. EDMS 16:28 Andrew Garcia, JULITA is Primary Nurse. jb4 17:11 CT Abd/Pelvis - IV Contrast Only In Process Unspecified. EDMS 17:54 Noise minimized. Lights dimmed. PO fluids given. pm7 18:32 Brianna Fuller MD is Referral Physician. cp 19:00 Report received from JULITA Hurd. zm 19:09 Patient did not have IV access during this emergency room visit. zm Administered Medications: 16:15 Drug: NS 0.9% IV 1000 ml IV at 1 bolus Per protocol; to be given as a bolus over 60 jb4 minutes Route: IV; Rate: 1 bolus; Site: left antecubital; 16:37 Drug: Ketorolac IVP 15 mg IVP once; may give if test negative Route: IVP; jb4 Site: left antecubital; 17:56 Follow up: Response: No adverse reaction; Marked relief of symptoms; Pain is decreased jb4 18:36 Not Given (Physician Discretion): rocephin1 grams IV at calculated rate once; Given cp slow IV push per pharmacy instructions 18:40 Drug: AZITHromycin PO 1 grams PO once Route: PO; jb4 18:46 Drug: Rocephin (cefTRIAXone) IM 1 grams IM once Route: IM; Site: right gluteus; jb4 Medication: 15:30 VIS not applicable for this client. jb4 Outcome: 18:33 Discharge ordered by . cp 19:07 Discharged to home ambulatory, zm 19:07 Condition: stable 19:07 Discharge instructions given to patient, Instructed on discharge instructions, follow up and referral plans. no drinking with medication, no driving heavy equipment, medication usage, safety practices, Demonstrated understanding of instructions, follow-up care, medications, Prescriptions given X 3, 19:09 Patient left the ED. Signatures: Dispatcher [place] EDMS Yash Gerber PA-C PA-C cp Bryson, James, RN RN jb4 Elin Dawson, JULITA RN Merle Kim pm7 Corrections: (The following items were deleted from the chart) 15:29 15:25 BP 100 / 47; Pulse 68bpm; Resp 16bpm; Pulse Ox 98%; jb4 jb4
--- NOTE | 2025-08-28 18:34 | EDPHYS ---
Physician Documentation [facility] Name: Cassidy France Age: 30 yrs Sex: Female : 1995 Arrival Date: 08/28/2025 Time: 15:13 Bed 19 Private MD: ED Physician Clay Alva HPI: 08/28 15:22 This 30 yrs old Female presents to ER via Unassigned with complaints of Abdominal Pain. cp 15:22 The patient presents with abdominal pain back pain. cp 15:22 The patient presents with a possible exposure to a sexually transmitted disease, cp urinary symptoms, vaginal bleeding that is moderate, times 6 weeks. Associated signs and symptoms: Pertinent negatives: constipation, diarrhea, fever. 15:22 The symptoms radiate to cp 15:22 The patient is sexually active, does not use protection during intercourse. Associated cp signs and symptoms: Pertinent negatives: fever, active vomiting. 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 - Infectious Disease History:: Denies. - Social history:: Smoking status: unknown. ROS: 15:25 Constitutional: Negative for body aches, chills, fever, poor PO intake, cp 15:25 Abdomen/GI: Positive for abdominal pain, nausea, cp 15:25 : Positive for vaginal bleeding, 15:25 Eyes: Negative for injury, pain, redness, and discharge, cp 15:25 ENT: Negative for drainage from ear(s), ear pain, sore throat, difficulty swallowing, difficulty handling secretions, 15:25 Respiratory: Negative for cough, shortness of breath, wheezing, 15:25 Back: Positive for radiated pain, Negative for injury or acute deformity, 15:25 All other systems are negative, Exam: 15:30 Constitutional: The patient appears in no acute distress, alert, awake, non-toxic, well cp developed, well nourished, uncomfortable, 15:30 Head/Face: Normocephalic, atraumatic. cp 15:30 Eyes: Periorbital structures: appear normal, Conjunctiva: normal, no exudate, no injection, Sclera: no appreciated abnormality, Lids and lashes: appear normal, bilaterally, 15:30 ENT: External ear(s): are unremarkable, Nose: is normal, Mouth: Lips: moist, Oral mucosa: moist, Posterior pharynx: Airway: no evidence of obstruction, patent, 15:30 Chest/axilla: Inspection: normal, 15:30 Cardiovascular: Rate: normal, 15:30 Respiratory: the patient does not display signs of respiratory distress, Respirations: normal, no use of accessory muscles, no retractions, labored breathing, is not present, Breath sounds: are clear throughout, no decreased breath sounds, no stridor, no wheezing, 15:30 Abdomen/GI: Inspection: abdomen appears normal, Bowel sounds: active, all quadrants, Palpation: soft, in all quadrants, moderate abdominal tenderness, in the right lower quadrant and left lower quadrant, rebound tenderness, 15:30 Back: pain, that is moderate, of the low back area, ROM is normal, 15:30 Neuro: Orientation: to person, place \T\ time. Mentation: is normal, Motor: moves all fours, strength is normal, Sensation: is normal, Gait: is steady, at a normal pace, without difficulty, Vital Signs: 15:25 BP 120 / 66; Pulse 68; Resp 16; Pulse Ox 98% ; jb4 16:45 BP 97 / 63; Pulse 57; Resp 16; Pulse Ox 100% on R/A; jb4 17:54 BP 106 / 69; Pulse 64; Resp 18; Pulse Ox 98% ; Pain 3/10; pm7 19:08 BP 108 / 71; Pulse 66; Resp 17; Temp 98.1; Pulse Ox 100% on R/A; Pain 0/10; zm 17:54 Pain Scale: Adult pm7 19:08 Pain Scale: Adult zm [place] Coma Score: 19:08 Eye Response: spontaneous(4). Motor Response: obeys commands(6). Verbal Response: zm oriented(5). Total: 15. MDM: 15:22 Medical Screening Exam initiated cp 18:33 Data reviewed: vital signs, nurses notes, lab test result(s), radiologic studies, CT cp scan, ultrasound, and as a result, I will discharge patient. 18:33 Differential diagnosis: nonspecific abdominal pain, ovarian cyst, pelvic inflammatory cp disease, urinary tract infection, vaginosis, Ectopic , Endometriosis, non-specific abd pain, Ovarian Torsion. I considered the following discharge prescriptions or medication management in the emergency department Medications were administered in the Emergency Department. See MAR. Counseling: I had a detailed discussion with the patient and/or guardian regarding the historical points, exam findings, and any diagnostic results supporting the discharge/admit diagnosis, lab results, radiology results, to return to the emergency department if symptoms worsen or persist or if there are any questions or concerns that arise at home. Response to treatment: the patient's symptoms have mildly improved after treatment, and as a result, I will discharge patient. Special discussion: Based on the patient's Hx, exam, and Dx evaluation, there is no indication for emergent surgery or inpatient Tx. It is understood by the patient/guardian that if the Sx's persist or worsen they need to return immediately for re-evaluation. 08/28 15:19 Order name: CBC with Diff; Complete Time: 16:30 08/28 17:46 Interpretation: Normal except: PLT 645; MPV 7.0; BASO% 1.4. 08/28 15:19 Order name: CMP; Complete Time: 17:37 08/28 17:38 Interpretation: Normal except: CL 109; BUN 6; GLOB 3.7; A/G 1.0. 08/28 15:19 Order name: Lipase; Complete Time: 17:37 08/28 15:19 Order name: Quantitative Hcg; Complete Time: 17:37 08/28 15:19 Order name: Test, Urine; Complete Time: 16:30 08/28 15:19 Order name: PT-INR; Complete Time: 16:30 08/28 15:19 Order name: Ptt, Activated; Complete Time: 16:30 08/28 17:47 Interpretation: Reviewed. 08/28 17:37 Order name: UA Rfx Dann Cult if indicated; Complete Time: 18:14 08/28 17:48 Order name: GC (Cody/Chl) Probe URINE 08/28 15:21 Order name: US Pelvis Complete; Complete Time: 16:30 08/28 15:54 Order name: Abdomen Pelvis Scan\E\US; Complete Time: 16:30 EDMS 08/28 16:32 Order name: CT Abd/Pelvis - IV Contrast Only; Complete Time: 17:45 cp 08/28 17:46 Interpretation: Report reviewed. cp 08/28 15:19 Order name: IV Saline Lock; Complete Time: 16:04 cp 08/28 15:19 Order name: Labs collected and sent; Complete Time: 16:04 cp Administered Medications: 16:15 Drug: NS 0.9% IV 1000 ml IV at 1 bolus Per protocol; to be given as a bolus over 60 jb4 minutes Route: IV; Rate: 1 bolus; Site: left antecubital; 16:37 Drug: Ketorolac IVP 15 mg IVP once; may give if test negative Route: IVP; jb4 Site: left antecubital; 17:56 Follow up: Response: No adverse reaction; Marked relief of symptoms; Pain is decreased jb4 18:36 Not Given (Physician Discretion): rocephin1 grams IV at calculated rate once; Given cp slow IV push per pharmacy instructions 18:40 Drug: AZITHromycin PO 1 grams PO once Route: PO; jb4 18:46 Drug: Rocephin (cefTRIAXone) IM 1 grams IM once Route: IM; Site: right gluteus; jb4 Disposition: 08/29 07:02 Co-signature as Attending Physician, Clay Alva MD I reviewed the patient's care rn provided by the Advanced Practice Provider and agree with the diagnosis and treatment plan. Disposition Summary: 08/28/25 18:33 Discharge Ordered Notes: Location: Home cp Problem: new cp Symptoms: have improved cp Condition: Stable cp Diagnosis - Encounter for screening for infections with a predominantly sexual mode of cp transmission - Lower abdominal pain, unspecified cp - Dorsalgia, unspecified cp - Abnormal uterine and vaginal bleeding, unspecified cp Followup: cp - With: Brianna Fuller MD - When: 1 week - Reason: Recheck today's complaints Discharge Instructions: - Discharge Summary Sheet cp - Abdominal Pain, Adult cp - Abnormal Uterine Bleeding cp - Acute Back Pain, Adult cp - Pelvic Pain, Female cp - Dysfunctional Uterine Bleeding cp - Health Maintenance, Female cp - Back Exercises cp Forms: - Medication Reconciliation Form cp - Antibiotic Education cp - Prescription Opioid Use cp - Patient Portal Instructions cp - Leadership Thank You Letter cp Prescriptions: - Ibuprofen 800 mg Oral Tablet - take 1 tablet ORAL route every 8 hours As needed take with food; 30 tablet; cp Refills: 0, Product Selection Permitted - Metronidazole 500 mg Oral Tablet - take 1 tablet ORAL route every 8 hours; 30 tablet; Refills: 0, Product cp Selection Permitted - Doxycycline Monohydrate 100 mg Oral Tablet - take 1 tablet ORAL route every 12 hours for 10 days; 20 tablet; Refills: 0, cp Product Selection Permitted Signatures: Dispatcher [employer] EDMS Clay Alva MD MD rn Yash Gerber PA-C PAAndrew Khan cp RN RN jb4 Elin Dawson RN RN zm Corrections: (The following items were deleted from the chart) 08/28 16:32 16:32 Abdomen Pelvis W Con+CT.RAD.BRZ ordered. EDMS EDMS 17:37 17:37 UA Rfx Dann Cult if indicated+U.LAB.BRZ ordered. EDMS EDMS
[2025-08-28] MEDS ORDERED: WATER FOR INJ,STERILE 10 ML ONE (18:36)
[2025-08-28 19:23] VITALS: BP 108/71; TEMP 98.1; O2SAT 100
[2025-08-31 19:01] LABS: C.trachomatis RNA,TMA Not Detected (Not Detected); N.gonorrhoeae RNA,TMA Not Detected (Not Detected)
== END 2025-08-28 19:09 | disposition home or self-care (01) ==
LOC: ER 15:13
DX: R10.30 Lower abdominal pain, unspecified (principal); N93.9 Abnormal uterine and vaginal bleeding, unspecified; M54.9 Dorsalgia, unspecified; Z11.3 Encounter for screening for infections with a predominantly sexual mode of transmission
CPT/HCPCS: 85025; 81001; 36415; 81025; 85610; 85730; 84702; 83690; 80053; 87590; 87490; 74177; 93975; 76856; 96372; 96374; 99284; Q9967; J1885; J7030; J0696 ×2

== ENCOUNTER 2025-08-29 01:02 | Emergency (ER) | payer OTHER ==
[2025-08-29 01:51] LABS: PT Prothrombin Time 11.0 SECONDS (10-13.0); PTT, Activated Partial Thromb 25.4 SECONDS (27.2-37.4); Protime INR 0.97
[2025-08-29 01:53] LABS: METHAMPHETAM NEGATIVE (NEGATIVE); THC Cannibis POSITIVE (NEGATIVE)
--- NOTE | 2025-08-29 02:04 | EDPHYS ---
Physician Documentation [facility] Name: Cassidy France Age: 30 yrs Sex: Female : 1995 Arrival Date: 08/29/2025 Time: : Bed 16 Private MD: ED Physician Yash Martini HPI: 08/29 01:20 This 30 yrs old Female presents to ER via EMS with complaints of Suicidal Ideation. cp 01:20 The patient presents to the emergency department with a history of substance abuse, cp suicide ideation, and the patient has a plan, to overdose with medications. 01:20 Onset: The symptoms/episode began/occurred today. Past psychiatric history: Prior cp diagnosis: bipolar disorder, PTSD. Associated signs and symptoms: Pertinent positives; suicide ideation, Pertinent negatives: chest pain, delusions, fever, hallucinations, homicidal ideation, shortness of breath. Severity of symptoms: in the emergency department the symptoms are unchanged despite EMS interventions. Historical: - Allergies: :58 No Known Allergies; kt5 - Home Meds: 01:24 Zoloft Oral [Active]; kt5 - PMHx: 01:24 Bipolar disorder; BORDERLINE PERSONALITY DISORDER; Kidney Infections; adhd; neck kt5 fracture; Kidney stone; depression; PTSD; - PSHx: 01:24 kidney stents; kt5 - Immunization history:: Adult Immunizations not up to date. - Infectious Disease History:: Denies. - Social history:: Smoking status: Patient denies any tobacco usage or history of. Patient uses street drugs, Methamphetamine (Meth) Patient/guardian denies using alcohol. ROS: 01:25 Constitutional: Negative for body aches, chills, fever, poor PO intake, cp 01:25 Cardiovascular: Negative for chest pain, palpitations, cp 01:25 Psych: Positive for depression, suicidal ideation, :25 Respiratory: Negative for cough, shortness of breath, wheezing, cp 01:25 Eyes: Negative for injury, pain, redness, and discharge, cp 01:25 ENT: Negative for drainage from ear(s), ear pain, sore throat, difficulty swallowing, difficulty handling secretions, : Abdomen/GI: Negative for vomiting, diarrhea, constipation, : Neuro: Negative for altered mental status, : All other systems are negative, Exam: ECG was reviewed by the Attending Physician. cp 01:30 Constitutional: The patient appears in no acute distress, alert, awake, cp non-diaphoretic, non-toxic, well developed, well nourished, 01:30 Head/Face: Normocephalic, atraumatic. cp 01:30 Eyes: Periorbital structures: appear normal, Conjunctiva: normal, no exudate, no injection, Sclera: no appreciated abnormality, Lids and lashes: appear normal, bilaterally, 01:30 ENT: External ear(s): are unremarkable, Nose: is normal, Mouth: Lips: moist, Oral mucosa: moist, Posterior pharynx: Airway: no evidence of obstruction, patent, 01:30 Chest/axilla: Inspection: normal, 01:30 Cardiovascular: Rate: normal, Rhythm: regular, 01:30 Respiratory: the patient does not display signs of respiratory distress, Respirations: normal, no use of accessory muscles, no retractions, labored breathing, is not present, Breath sounds: are clear throughout, no decreased breath sounds, no stridor, no wheezing, 01:30 Abdomen/GI: Exam negative for discomfort, distension, guarding, Inspection: abdomen cp appears normal, 01:30 Back: CVA tenderness, is absent, 01:30 Skin: no rash present. 01:30 Neuro: Orientation: to person, place \T\ time. Mentation: is normal, Motor: moves all fours, strength is normal, Sensation: is normal, 01:30 Psych: Behavior/mood is cooperative, Affect is flat, Patient having thoughts of suicide. Judgement / Insight is normal. Delusions/hallucinations are not present. Vital Signs: 01:03 BP 109 / 78; Pulse 72; Resp 16; Temp 98.6; Pulse Ox 98% ; Weight 54.43 kg; Height 5 ft. kt5 3 in. ; Pain 5/10; 07:41 BP 120 / 76; Pulse 100; Resp 16; Temp 98; Pulse Ox 100% on R/A; Pain 0/10; em1 08:48 BP 122 / 74; Pulse 98; Resp 16; Pulse Ox 100% on R/A; db 01:03 Body Mass Index 21.26 (54.43 kg, 160.02 cm) kt5 01:03 Pain Scale: Adult kt5 07:41 Pain Scale: Adult em1 MDM: 01:03 Medical Screening Exam initiated cp 02:05 Data reviewed: vital signs, nurses notes, lab test result(s), EKG. cp 02:05 Differential diagnosis: drug withdrawal. acute psychotic break, depression, psychosis cp secondary to non-compliance. Independent interpretation of the following test(s) in the Emergency Department EKG: See my EKG interpretation above. Test considered but Not performed: MRI: abdomen/pelvis. Counseling: I had a detailed discussion with the patient and/or guardian regarding the historical points, exam findings, and any diagnostic results supporting the discharge/admit diagnosis, lab results. ED course: VSS. Patient medically cleared for transfer to [facility] facility. 08/29 01:17 Order name: Acetaminophen; Complete Time: 02:00 cp 08/29 01:17 Order name: ETOH Level; Complete Time: 02:00 cp 08/29 01:17 Order name: PT-INR; Complete Time: 02:00 cp 08/29 01:17 Order name: Ptt, Activated; Complete Time: 02:00 cp 08/29 01:17 Order name: Salicylate; Complete Time: 02:00 cp 08/29 01:17 Order name: Urine Drug Screen; Complete Time: 02:00 cp 08/29 02:00 Interpretation: Normal except: SMITA POSITIVE; THC POSITIVE. cp 08/29 01:17 Order name: EKG - Nurse/Tech; Complete Time: 01:30 cp 08/29 01:17 Order name: IV Saline Lock; Complete Time: 01:30 cp 08/29 01:17 Order name: Labs collected and sent; Complete Time: 01:30 cp 08/29 01:17 Order name: Suicide Precautions; Complete Time: 01:39 cp 08/29 01:17 Order name: Suicide Screening ([place]); Complete Time: 01:39 cp EC:27 Rate is 64 beats/min. Rhythm is regular. IA interval is normal. QRS interval is normal. cp QT interval is normal. T waves are Inverted in lead aVR. Interpreted by me. Reviewed by me. Administered Medications: No medications were administered Disposition Summary: 08/29/25 02:03 Transfer Ordered Notes: Transfer Location: Psych Facility cp Reason: Higher level of care cp Condition: Stable cp Problem: new cp Symptoms: have improved cp Accepting Physician: doctor(08/29/25 08:53) db Diagnosis - Suicidal ideations cp Forms: - Medication Reconciliation Form cp - SBAR form cp Addendum: 09/01/2025 06:53 Co-signature as Attending Physician, Yash Martini MD I agree with the assessment and c calderon plan of care. Signatures: Dispatcher [employer] EDYash Quintero MD MD cha Page, Corey, PAShadyC PAFabiana Gorman cp RN RN db Manju Jameson RN RN kt5 Corrections: (The following items were deleted from the chart) 08/29 08:53 02:03 doctor tricia kline
--- NOTE | 2025-08-29 02:04 | ER ---
Nurse's Notes [facility] Name: Cassidy France Age: 30 yrs Sex: Female : 1995 Arrival Date: 08/29/2025 Time: 01:01 Bed 16 Private MD: Diagnosis: Suicidal ideations Presentation: 08/29 01:03 Chief complaint: EMS states: BIBA for vaginal bleeding for 6 weeks, abd pain, back kt5 pain, and tingling in head and neck. Initial Sepsis Screen: Does the patient meet any 2 criteria? Yes Does the patient have a suspected source of infection? No. Patient's initial sepsis screen is negative. Risk Assessment: Do you want to hurt yourself or someone else? Patient reports no desire to harm self or others. Onset of symptoms. 01:03 Method Of Arrival: EMS: [facility] kt5 01:03 Acuity: DERICK 3 kt5 01:24 Coronavirus screen: Vaccine status: Patient reports being unvaccinated. Ebola Screen: kt5 No symptoms or risks identified at this time. Triage Assessment: 01:03 General:. kt5 01:24 General: Appears in no apparent distress. unkempt, Behavior is calm, cooperative, kt5 appropriate for age. General:. Pain: Complains of pain in right posterior aspect of neck and left posterior aspect of neck Pain currently is 3 out of 10 on a pain scale. Pain began 6 months ago. EENT: No deficits noted. No signs and/or symptoms were reported regarding the EENT system. Neuro: No deficits noted. Perez Agitation-Sedation Scale (RASS): 0 - Alert and Calm Level of Consciousness is awake, alert, obeys commands, Oriented to person, place, time, situation, Reports dizziness, since 6 months s/p accident. Cardiovascular: No deficits noted. Denies chest pain, Heart tones S1 S2 present Capillary refill < 3 seconds Clubbing of nail beds is absent JVD is absent Pulses are all present. Edema is absent. Cardiovascular: Rhythm is sinus rhythm. Respiratory: No deficits noted. Respiratory: Airway is patent Trachea midline Respiratory effort is even, unlabored, Respiratory pattern is regular, symmetrical. GI: No deficits noted. No signs and/or symptoms were reported involving the gastrointestinal system. Abdomen is flat, non-distended, Bowel sounds present X 4 quads. Abd is soft and non tender X 4 quads. : Reports vaginal bleeding that is bright red, heavy flow for 6 weeks. Derm: No deficits noted. No signs and/or symptoms reported regarding the dermatologic system. Skin is intact, Skin is dry, Skin is pink, warm \\T\\ dry. normal, Skin temperature is warm. Musculoskeletal: No deficits noted. No signs and/or symptoms reported regarding the musculoskeletal system. Historical: - Allergies: :58 No Known Allergies; kt5 - Home Meds: 01:24 Zoloft Oral [Active]; kt5 - PMHx: 01:24 Bipolar disorder; BORDERLINE PERSONALITY DISORDER; Kidney Infections; adhd; neck kt5 fracture; Kidney stone; depression; PTSD; - PSHx: 01:24 kidney stents; kt5 - Immunization history:: Adult Immunizations not up to date. - Infectious Disease History:: Denies. - Social history:: Smoking status: Patient denies any tobacco usage or history of. Patient uses street drugs, Methamphetamine (Meth) Patient/guardian denies using alcohol. Screenin:30 [facility] ED Fall Risk Assessment (Adult) History of falling in the last 3 months, kt5 including since admission No falls in past 3 months (0 pts) Confusion or Disorientation No (0 pts) Intoxicated or Sedated No (0 pts) Impaired Gait No (0 pts) Mobility Assist Device Used No (0 pt) Altered Elimination No (0 pt) Score/Fall Risk Level 0 - 2 = Low Risk Oriented to surroundings, Maintained a safe environment. Abuse screen: Denies threats or abuse. Nutritional screening: No deficits noted. Tuberculosis screening: No symptoms or risk factors identified. Assessment: 01:21 General: provider at bs and pt report SI, SI precautions in place. kt5 01:30 General: see nurses note. kt5 01:59 Reassessment: Patient appears in no apparent distress at this time. Patient and/or kt5 family updated on plan of care and expected duration. Pain level reassessed. Patient is alert, oriented x 3, equal unlabored respirations, skin warm/dry/pink. pt sleeping, easily arousable, nad, sitter at bs, waiting dispo. 02:59 Reassessment: Patient appears in no apparent distress at this time. Patient and/or kt5 family updated on plan of care and expected duration. Pain level reassessed. Patient is alert, oriented x 3, equal unlabored respirations, skin warm/dry/pink. sitter at bs. 04:03 Reassessment: Patient and/or family updated on plan of care and expected duration. Pain kt5 level reassessed. Patient is alert, oriented x 3, equal unlabored respirations, skin warm/dry/pink. sitter at bs Patient states symptoms have improved. 04:48 Reassessment: Patient appears in no apparent distress at this time. Patient and/or kt5 family updated on plan of care and expected duration. Pain level reassessed. Patient is alert, oriented x 3, equal unlabored respirations, skin warm/dry/pink. pt eating and drinking w/o complications Patient states symptoms have improved. 04:49 General: sitter at bs. kt5 06:01 Reassessment: Patient appears in no apparent distress at this time. Patient and/or kt5 family updated on plan of care and expected duration. Pain level reassessed. Patient is alert, oriented x 3, equal unlabored respirations, skin warm/dry/pink. sitter at bs. 06:52 Reassessment: Patient appears in no apparent distress at this time. No changes from kt5 previously documented assessment. Patient and/or family updated on plan of care and expected duration. Pain level reassessed. Patient is alert, oriented x 3, equal unlabored respirations, skin warm/dry/pink. sitter at bs. 06:52 General: report given to staff interpreter. kt5 07:18 Reassessment: REPORT GIVEN TO TUNDE FROM [facility]. db 07:23 Reassessment: Patient appears in no apparent distress at this time. Patient and/or db family updated on plan of care and expected duration. Pain level reassessed. Patient is alert, oriented x 3, equal unlabored respirations, skin warm/dry/pink. Neuro: Level of Consciousness is awake, alert, obeys commands, Oriented to person, place, time, situation. Respiratory: Airway is patent Respiratory effort is even, unlabored, Respiratory pattern is regular, symmetrical. 08:00 Reassessment: Patient appears in no apparent distress at this time. Patient and/or db family updated on plan of care and expected duration. Pain level reassessed. Patient is alert, oriented x 3, equal unlabored respirations, skin warm/dry/pink. General: Appears in no apparent distress. comfortable, Behavior is calm, cooperative. Neuro: Level of Consciousness is awake, alert, obeys commands, Oriented to person, place, time, situation. 08:47 Reassessment: [facility] ARRIVED FOR [facility]. db 08:50 Reassessment: Patient appears in no apparent distress at this time. Patient and/or db family updated on plan of care and expected duration. Pain level reassessed. Patient is alert, oriented x 3, equal unlabored respirations, skin warm/dry/pink. Psych: 01:35 [place] Suicide Severity Screening: In the past month, have you wished you were kt5 or wished you could go to sleep and not wake up? Patient responds "No." "In the past month, have you actually had any thoughts of killing yourself?" Patient responds "no." "In your lifetime, have you ever done anything, started to do anything, or prepared to do anything to end your life?". [place] Suicide Severity Screening: pt states that she has attempted 1 other time via overdose and feel SI today with no plan, denies HI at this time. Subjective: Hallucinations are visual. Subjective: Hallucinations are. Objective: Patient is cooperative, Speech is normal, Affect is flat. Interventions: Removed personal items and placed in bag. Patient placed in hospital gown. Searched person for dangerous items. Urine collected and sent for urine drug test. Belonging list filled out. Safety Checks: Personal items have been removed. Door is open. No visitors are present at this time. Safety Checks: sitter at bs. Patient uses methamphetamines daily. Last use was 1 days ago. Commitment: Patient will be an involuntary commitment. Vital Signs: 01:03 BP 109 / 78; Pulse 72; Resp 16; Temp 98.6; Pulse Ox 98% ; Weight 54.43 kg; Height 5 ft. kt5 3 in. ; Pain 5/10; 07:41 BP 120 / 76; Pulse 100; Resp 16; Temp 98; Pulse Ox 100% on R/A; Pain 0/10; em1 08:48 BP 122 / 74; Pulse 98; Resp 16; Pulse Ox 100% on R/A; db 01:03 Body Mass Index 21.26 (54.43 kg, 160.02 cm) kt5 01:03 Pain Scale: Adult kt5 07:41 Pain Scale: Adult em1 ED Course: :01 Patient arrived in ED. rv1 01:02 Manju Jameson, RN is Primary Nurse. kt5 01:03 Yash Gerber PA-C is PHCP. cp 01:03 Yash Martini MD is Attending Physician. cp 01:03 Arm band placed on right wrist. kt5 01:06 Triage completed. kt5 01:24 EKG completed in triage. Results shown to MD. kt5 01:30 Patient has correct armband on for positive identification. Placed in gown. Bed in low kt5 position. Call light in reach. Side rails up X 1. Door closed. Noise minimized. Warm blanket given. Pillow given. Patient is placed in psych hold. 01:30 Acetaminophen Sent. vk 01:30 ETOH Level Sent. vk 01:30 PT-INR Sent. vk 01:30 No provider procedures requiring assistance completed. kt5 01:31 Ptt, Activated Sent. vk 01:31 Salicylate Sent. vk 01:31 Urine Drug Screen Sent. vk 01:31 Initial lab(s) drawn, by mo, sent to lab. Urine collected: clean catch specimen, florecita vk colored, EKG done, by ED staff. Inserted saline lock: 20 gauge in left antecubital area, using aseptic technique. Blood collected. Flushed with 10 mL NS. 02:15 Faxed pt clinicals to [facility] for placement. rv1 08:48 Provided Education on: DISCHARGE AND FOLLOWUP. db 08:50 IV discontinued, intact, bleeding controlled, No redness/swelling at site. db Administered Medications: No medications were administered Medication: 01:30 VIS not applicable for this client. kt5 Outcome: 02:03 ER care complete, transfer ordered by . cp 08:50 Transferred by ground EMS Transfer form completed. X-rays sent w/ patient. [facility] 08:50 Condition: stable 08:50 Instructed on the need for transfer, 08:53 Patient left the ED. db Signatures: Mitch Dawson em1 Yash Gerber PA-C PA-C cp Benton, Danielle, RN RN db Chela Simms rv1 Sonya Causey vk Manju Jameson, RN RN kt5 Corrections: (The following items were deleted from the chart) 01:33 01:03 BP 109 / 78; Pulse 72bpm; Resp 16bpm; Pulse Ox 98%; Temp 98.6F; 54.43 kg; Height kt5 5 ft. 6 in.; BMI: 19.3; Pain 5/10, Adult; kt5
[2025-08-29 15:21] VITALS: TEMP 98.6
[2025-08-29 15:23] VITALS: BP 122/74; O2SAT 100
== END 2025-08-29 08:53 ==
LOC: ER 01:02
DX: R45.851 Suicidal ideations (principal); F60.3 Borderline personality disorder
CPT/HCPCS: 36415; 80143; 80179; 80307; 82077; 85610; 85730; 93005; 99285